=== PATIENT | female | born 1960 | race Caucasian/White ===

== ENCOUNTER → 2018-06-27 09:05 | Outpatient (CLI) | payer OTHER, SELFPAY | PROVIDERS: Visit Provider Nurse Practitioner | DX: N39.0 Urinary tract infection, site not specified (principal) | CPT/HCPCS: 87086 ==

== ENCOUNTER → 2018-08-16 21:23 | Outpatient (CLI) | payer OTHER, SELFPAY | PROVIDERS: Referring Provider Nurse Practitioner; Visit Provider Nurse Practitioner | DX: N30.90 Cystitis, unspecified without hematuria (principal); R35.0 Frequency of micturition | CPT/HCPCS: 87086 ==

== ENCOUNTER 2022-01-07 21:39 | Outpatient (CLI) | payer OTHER, SELFPAY | END 2022-01-07 23:59 | disposition home or self-care (01) | PROVIDERS: Visit Provider Nurse Practitioner | DX: R35.0 Frequency of micturition (principal); N30.90 Cystitis, unspecified without hematuria | CPT/HCPCS: 87086 ==

== ENCOUNTER → 2025-04-17 | Outpatient (CLI) | payer MEDICARE, SELFPAY ==
--- OUTSIDE RECORDS SUMMARY | 2025-04-18 02:43 | XMS RPT_ITS | CCD ---
Author Organization [facility] Care Team Providers Care Warehouse Distribution Specialist Name Role Phone Ericka Villela Unavailable Unavailable NURSE VISIT, IM ASSOC Unavailable Unavailabl e Katrodrigo, Bashar Unavailable Unavailable [facility], Ericka M Unavailable Unavailable Dave, Alex L Unavailable Unavailable [facility], Ericka Unavailable Unavailable Katrodrigo, Bashar Unavailable Unavailable Gomez, Ugo Unavailable Unavailable Malcolm Vargas Unavailable Unavailable Clemente, Charline Unavailable Unavailable Gomez, Ugo J Unavailable Unavailable Katirroxy, Bashar Unavailable Unavailable NURSE VISIT, IM ASSOC Unavailable Unavailabl e Clemente, Charline Unavailable Unavailable Timi FREEMAN, Rodríguez Madden Unavailable [phone] Ericka Villela MD Unavailable Unavailable Jovon Mckeon MD Unavailable Unavailable Clemente DO, Charline Unavailable Unavailable [facility], Ericka M Unavailable Unavailable Gomez, Ugo J Unavailable Unavailable Katirji, Bashar Unavailable Unavailable Dave, Alex L Unavailable Unavailable NURSE VISIT, IM ASSOC Unavailable Unavailabl e [facility], Ericka M Unavailable Unavailable Dave Alex L Unavailable Unavailable [facility], Ericka M Unavailable Unavailable Unavailable Ericka Villela MD Primary Care Provider [phone] Unavailable Unavailable Ericka Villela MD Primary Care Provider [phone] Ericka Villela MD Unavailable MD ERICKA VILLELA Primary Care Unavailable Angie MCKEON Attending Unavailable Dr. Luís Dixon Attending Unavailable MD ERICKA VILLELA Primary Care Unavailable DO LAYA NICHOLS Attending MD ERICKA Lazo Primary Care Unavailable DO LAYA NICHOLS Attending DO LAYA Sung Referring MD ERICKA Lazo Primary Care Unavailable MD ERICKA VILLELA Primary Care Unavailable MANOHAR, MD ERICKA Lamb Attending Unavailable MANOHAR, MD ERICKA Lamb Referring Unavailable MANOHAR, MD ERICKA Lamb Referring Unavailable MD ERICKA VILLELA Primary Care Unavailable MD ERICKA VILLELA Attending Unavailable MD ERICKA VILLELA Referring Unavailable MD ERICKA VILLELA Primary Care Unavailable MANOHAR, MD ERICKA Lamb Attending Unavailable MD ERICKA VILLELA Primary Care Unavailable MD ERICKA VILLELA Attending Unavailable MD ERICKA VILLELA Referring Unavailable MD ERICKA VILLELA Primary Care Unavailable MANOHAR, MD ERICKA Lamb Attending Unavailable MD ERICKA VILLELA Referring Unavailable Chanelle Estrada Attending Unavailable MANOHAR, MD ERICKA Lamb Primary Care Unavailable MANOHAR, MD ERICKA Lamb Referring Unavailable MANOHARERICKA Referring Unavailable MANOHARERICKA Primary Care Unavailable Ericka Villela MD Primary Care Provider Ericka Villela MD Primary Care Provider Ericka Villela MD Unavailable Kwaku Hendricks MD, Sy Lilly Unavailable Marilee Wiseman MD Unavailable Meka LORA, Jovon Unavailable Bushra Li OD Unavailable Ginger Corona MD Unavailable Hannah Elizabeth MD Unavailable Ericka Villela MD Unavailable MANOHAR, ERICKA M Primary Care Unavailable SAIMA SEO Attending Unavailable MANOHAR, ERICKA M Primary Care Unavailable CLAUDE THOMPSNO Attending Unavailable MANOHAR, ERICKA M Primary Care Unavailable CLAUDE THOMPSON Attending Unavailable TOMAS GRAMAJO Admitting Unavailabl e TOMAS GRAMAJO Attending Unavailabl e MANOHAR, ERICKA M Primary Care Unavailable TOMAS GRAMAJO Attending Unavailabl e MANOHAR, ERICKA M Primary Care Unavailable TOMAS GRAMAJO Referring Unavailabl e MANOHAR, ERICKA M Primary Care Unavailable YEHUDA KIRK Referring Unavailable MANOHAR, ERICKA M Primary Care Unavailable MANOHAR, ERICKA M Primary Care Unavailable MANOHAR, ERICKA M Attending Unavailable MANOHAR, ERICKA M Primary Care Unavailable MANOHAR, ERICKA M Primary Care Unavailable MANOHAR, ERICKA M Referring Unavailable MANOHAR, ERICKA M Primary Care Unavailable LAURI SAHU Attending Unavailable MANOHAR, ERICKA M Primary Care Unavailable MANOHAR, ERICKA M Attending Unavailable MANOHAR, ERICKA M Primary Care Unavailable MANOHAR, ERICKA M Referring Unavailable MANOHAR, ERICKA M Primary Care Unavailable MANOHAR, ERICKA M Referring Unavailable MANOHAR, ERICKA M Primary Care Unavailable MANOHAR, ERICKA M Referring Unavailable MANOHAR, ERICKA M Attending Unavailable MANOHAR, ERICKA M Primary Care Unavailable MARILEE WISEMAN Attending Unavailable MANOHAR, ERICKA M Primary Care Unavailable MANOHAR, ERICKA M Primary Care Unavailable MARILEE WISEMAN Attending Unavailable MANOHAR, ERICKA M Primary Care Unavailable MANOHAR, ERICKA M Attending Unavailable MANOHAR, ERICKA M Primary Care Unavailable MANOHAR, ERICKA M Primary Care Unavailable MARILEE WISEMAN Attending Unavailable MANOHAR, ERICKA M Primary Care Unavailable MANOHAR, ERICKA M Primary Care Unavailable GUILLAUME MERRILL Attending Unavailable LESLYE LEMUS Referring Unavailable MANOHAR, ERICKA M Primary Care Unavailable GUILLAUME MERRILL Attending Unavailable SELF Referring Unavailable MANOHAR, ERICKA M Primary Care Unavailable GUILLAUME MERRILL Attending Unavailable MANOHAR, ERICKA M Primary Care Unavailable YEHUDA KIRK Attending Unavailable SELF Referring Unavailable MANOHAR, ERICKA M Primary Care Unavailable GUILLAUME MERRILL Attending Unavailable MANOHAR, ERICKA M Primary Care Unavailable LESLYE LEMUS Referring Unavailable MANOHAR, ERICKA M Primary Care Unavailable PROVIDER, UNKNOWN Referring Unavailable MANOHAR, ERICKA M Primary Care Unavailable MANOHAR, ERICKA M Primary Care Unavailable PROVIDER, UNKNOWN Referring Unavailable MANOHAR, ERICKA M Primary Care Unavailable MANOHAR, ERICKA M Primary Care Unavailable JOVON MCKEON Attending Unavailable MANOHAR, ERICKA M Primary Care Unavailable MANOHAR, ERICKA M Primary Care Unavailable MANOHAR, ERICKA M Primary Care Unavailable LAURI SAHU Referring Unavailable MANOHAR, ERICKA M Primary Care Unavailable MANOHAR, ERICKA M Primary Care Unavailable MANOHAR, ERICKA M Primary Care Unavailable JOVON MCKEON Attending Unavailable MANOHAR, ERICKA M Primary Care Unavailable MANOHAR, ERICKA M Primary Care Unavailable MANOHAR, ERICKA M Referring Unavailable MANOHAR, ERICKA M Primary Care Unavailable MARILEE WISEMAN Referring Unavailable MANOHAR, ERICKA M Primary Care Unavailable MANOHAR, ERICKA M Referring Unavailable MANOHAR, ERICKA M Primary Care Unavailable JOVON MCKEON Attending Unavailable MANOHAR, ERICKA M Primary Care Unavailable Allergies Allergy Classification Reported Allergen(s) Allergy Type Date of Onset Reaction(s) Facility Macrolides (antibiotic) (15 sources) Azithromycin; Translations: [Zithromax CAPS] Drug Allergy Other [facility] Work Phone: NSAIDs (20 sources) Ibuprofen; Translations: [Naprelan TB24] Drug Allergy Swelling, Hives, Angioedema [facility] Work Phone: (20 sources) Azithromycin; Translations: [Zithromax CAPS] Drug Allergy 03-09-20 13 Other, Other: See Comments [facility] (20 sources) Ibuprofen; Translations: [Ibuprofen TABS] Drug Allergy 03-09-20 13 Swelling, Anaphylaxis, Rash, Shortness of breath [facility] Work Phone: (20 sources) Naproxen; Translations: [Naprelan TB24] Drug Allergy Hives, Angioedema [facility] Work Phone: (1 source) Azithromycin Drug Allergy 07-26-20 13 tongue swelling [facility] Work Phone: (1 source) Ibuprofen Drug Allergy 07-26-20 13 skin rash and difficulty breathing [facility] Work Phone: (2 sources) Adhesive Tape Propensity to adverse reactions to drug 05-11-20 13 Other (See Comments) [facility] Work Phone: (20 sources) Naproxen; Translations: [NAPROXEN SODIUM] Drug Allergy 03-09-20 13 Anaphylaxis, Rash [facility] Work Phone: (2 sources) NSAIDs Propensity to adverse reactions to drug 02-10-20 17 [facility] (20 sources) Naproxen; Translations: [NAPRELAN] Drug Allergy 11-11-19 23 Hives, Angioedema [facility] Work Phone: (20 sources) Non-steroidal anti-inflammator y agent; Translations: [NSAIDS (NON-STEROIDAL ANTI-INFLAMMATOR Y DRUG)] Drug Intolerance 02-10-20 17 Rash [facility] Work Phone: (20 sources) Other; Translations: [OTHER] Propensity to adverse reactions 05-11-20 13 Unknown [facility] Work Phone: (7 sources) Azithromycin; Translations: [AZITHROMYCIN] Drug Allergy 03-09-20 13 [facility] (7 sources) Ibuprofen; Translations: [IBUPROFEN] Drug Allergy 03-09-20 13 [facility] (18 sources) Adhesive Tape; Translations: [ADHESIVE TAPE (ROSINS)] Propensity to adverse reactions to substance 05-11-20 Other: See Comments [facility] Medications Current Medications Medication Drug Class(es) Dates Sig (Normalized) Sig (Original) acetaminophen 325 mg / oxyCODONE hydrochloride 5 mg oral tablet (4 sources) Opioid Agonist Start: 01-12-2014 take 1 tablet by mouth every four hours as needed oxyCODONE-acetam inophen 5-325 mg tablet Take 1 tablet by mouth every 4 hours as needed for Pain. 40 tablet 0 01/12/2014 Active amoxicillin 875 mg / clavulanate 125 mg oral tablet (4 sources) Penicillin-class Antibacterial Start: 02-17-2025 End: 02-27-2025 take 1 tablet by mouth twice daily amoxicillin-clav ulanate (Augmentin) 875-125 mg tablet Indications: Cellulitis of left thumb Take 1 tablet (875 mg) by mouth 2 times a day for 10 days. 20 tablet 02/17/2025 02/27/2025 Active Start: 08-12-2020 take 1 tablet by víctor th every twelve hours Amoxicillin-Pot Clavulanate 875-125 MG Oral Tablet TAKE 1 TABLET EVERY 12 HOURS UNTIL GONE. Quantity: 14 Refills: 0 Ericka Villela MD Start : 12-Aug-2020 Active atorvastatin 10 mg oral tablet (20 sources) HMG-CoA Reductase Inhibitor Start: 09-19-2024 take 1 tablet by mouth once daily atorvastatin (Lipitor) 10 mg tablet Indications: Vitamin B12 deficiency anemia, unspecified TAKE 1 TABLET BY MOUTH ONCE DAILY 90 tablet 3 09/19/2024 Active Start: 06-12-2024 take 1 tablet by víctor th once daily atorvastatin (Lipitor) 10 mg tablet Indications: Vitamin B12 deficiency anemia, unspecified TAKE 1 TABLET BY MOUTH ONCE DAILY 90 tablet 06/12/2024 Active Start: 04-02-2024 take 1 tablet by víctor th once daily atorvastatin (Lipitor) 10 mg tablet Indications: Vitamin B12 deficiency anemia, unspecified Take 1 tablet (10 mg) by mouth once daily. 90 tablet 04/02/2024 Active Start: 11-11-2023 take 1 tablet by víctor th once daily atorvastatin (Lipitor) 10 mg tablet Indications: Vitamin B12 deficiency anemia, unspecified Take 1 tablet (10 mg) by mouth once daily. 30 tablet 0 01/12/2024 Active Start: 10-12-2023 take 1 tablet by víctor th once daily atorvastatin (Lipitor) 10 mg tablet Indications: Vitamin B12 deficiency anemia, unspecified Take 1 tablet (10 mg) by mouth once daily. 30 tablet 0 10/12/2023 Active Start: 05-25-2013 End: 09-13-2023 take 1 tablet by mouth once daily atorvastatin (Lipitor) 10 mg tablet Indications: Vitamin B12 deficiency anemia, unspecified Take 1 tablet (10 mg) by mouth once daily. 30 tablet 0 09/13/2023 Active benzonatate 200 mg oral capsule (7 sources) Non-narcotic Antitussive Start: 09-15-2024 take 1 capsule by mouth three times daily as needed for cough benzonatate (Tessalon) 200 mg capsule Indications: COVID-19 Take 1 capsule (200 mg) by mouth 3 times a day as needed for cough for up to 30 doses. Do not crush or chew. 30 capsule 09/15/2024 Active calcium carbonate 1500 mg oral tablet (20 sources) calcium carbonat e 600 mg calcium (1,500 mg) tablet Take by mouth. Active Calcium 600 MG T ABS Quantity: 0 Refills: 0 Ordered: 25-Mar-2015 DO Active Calcium 600 MG O ral Tablet Refills: 0 Active cholecalciferol, vitamin D3, (VITAMIN D3 ORAL) (14 sources) cholecalciferol, vitamin D3, (VITAMIN D3 ORAL) Take by mouth. Active cholecalciferol, vitamin D3, (VITAMIN D3 ORAL) Take by mouth. 0 Active cyanocobalamin, vitamin B-12 , (B-12 COMPLIANCE INJ) (20 sources) cyanocobalamin, vitamin B-12, (B-12 COMPLIANCE INJ) B12 INJECTIONS Active cyanocobalamin, vitamin B-12, (B-12 COMPLIANCE INJ) B12 INJECTIONS 0 Active 1 ml denosumab 60 mg/ml prefilled syringe (20 sources) RANK Ligand Inhibitor Start: 01-09-2024 End: 01-12-2024 inject 1 mL by subcutaneous injection once denosumab (Prolia) 60 mg/mL syringe Indications: Osteoporosis, unspecified osteoporosis type, unspecified pathological fracture presence Inject 1 mL (60 mg total) under the skin 1 time for 1 dose. To be administered in office 1 mL 01/09/2024 Active Start: 01-09-2024 denosumab (PRO CORINE) 60 mg/mL as directed Subcutaneous 01/09/2024 Active Start: 06-14-2019 End: 01-07-2024 denosumab (Prolia) 60 mg/mL syringe Inject 1 mL (60 mg) under the skin every 6 months. To be administered in office 0 06/14/2019 01/07/2024 Discontinued (Reorder) Start: 06-14-2019 inject 60 mg by subc utaneous injection once Prolia 60 MG/ML Subcutaneous Solution Prefilled Syringe INJECT 60 MG Subcutaneous Quantity: 1 Refills: 0 Ordered: 14-Jun-2019 Ericka Villela MD Start : 14-Jun-2019 Active Pt to bring med to Dr Gilles acosta office for adminiastration. Please review proper storage and transportion of this medication with the pt. Start: 05-29-2016 Prolia 60 MG/M L Subcutaneous Solution INJECT 60 UNIT Subcutaneous Quantity: 0 Refills: 0 Ordered: 29-May-2016 Ericka Villela MD Start : 29-May-2016 Complete 12 hr dextromethorphan hydrobromide 30 mg / guaiFENesin 600 mg extended release oral tablet (16 sources) Uncompetitive Z-fbujhh-D-aspartate Receptor Antagonist, Sigma-1 Agonist End: 08-24-2024 take 1 tablet by mouth every twelve hours dextromethorphan-guaifenesin (Mucinex DM) 30-600 mg 12 hr tablet Take 1 tablet by mouth every 12 hours. Do not crush, chew, or split. 08/24/2024 Discontinued (Med List Cleanup) doxycycline hyclate 100 mg oral capsule (2 sources) Tetracycline-class Drug Start: 02-17-2025 End: 02-27-2025 doxycycline (Vibramycin) 100 mg capsule Indications: Cellulitis of left thumb Take 1 capsule (100 mg) by mouth 2 times a day for 10 days. Take with at least 8 ounces (large glass) of water, do not lie down for 30 minutes after 20 capsule 02/17/2025 02/27/2025 Active Start: 06-02-2023 End: 06-09-2023 doxycycline (Vibramycin) 100 mg capsule Indications: Subacute sinusitis, unspecified location , Laryngitis Take 1 capsule (100 mg) by mouth 2 times a day for 7 days. Take with at least 8 ounces (large glass) of water, do not lie down for 30 minutes after 14 capsule 0 06/02/2023 06/09/2023 Active gabapentin 100 mg oral capsule (3 sources) Anti-epileptic Agent take 1 capsule by mouth three times daily gabapentin (Neurontin) 100 mg capsule Take 100 mg by mouth 3 times a day. Unsure of exact dose Active lisinopril 10 mg oral tablet (20 sources) Angiotensin Converting Enzyme Inhibitor Start: 09-19-20 take 1 tablet by mouth once daily lisinopril 10 mg tablet Indications: Primary hypertension TAKE 1 TABLET BY MOUTH ONCE DAILY USE DIRECTED 90 tablet 3 09/19/2024 Active Start: 06-12-2024 take 1 tablet by víctor th once daily lisinopril 10 mg tablet Indications: Primary hypertension Take 1 tablet (10 mg) by mouth once daily. Use as directed 90 tablet 06/12/2024 Active Start: 01-28-2024 take 1 tablet by víctor th once daily lisinopril 10 mg tablet Indications: Primary hypertension Take 1 tablet (10 mg) by mouth once daily. Use as directed 90 tablet 01/28/2024 Active Start: 11-11-2023 take 1 tablet by víctor th once daily lisinopril 10 mg tablet Indications: Primary hypertension Take 1 tablet (10 mg) by mouth once daily. Use as directed 30 tablet 0 01/12/2024 Active Start: 10-12-2023 take 1 tablet by víctor th once daily lisinopril 10 mg tablet Indications: Primary hypertension Take 1 tablet (10 mg) by mouth once daily. Use as directed 30 tablet 0 10/12/2023 Active Start: 05-29-2016 End: 09-13-2023 take 1 tablet by mouth once daily lisinopril 10 mg tablet Indications: Primary hypertension Take 1 tablet (10 mg) by mouth once daily. Use as directed 30 tablet 0 09/13/2023 Active End: 07-24-2021 LISINOPRIL PO Take by mouth 0 07/24/2021 Discontinued (LIST CLEANUP) nystatin 100 unt/mg topical powder (20 sources) Polyene Antifungal Start: 01-13-2023 End: 12-30-2023 nystatin (Mycostatin) 100,000 unit/gram powder Indications: Tinea corporis Apply topically 2 times a day. Apply sparingly to affected area(s) 30 g 11 12/30/2023 Active Start: 04-07-2019 Nystatin 86537 0 UNIT/GM External Powder APPLY SPARINGLY TO AFFECTED AREA(S) TWICE DAILY Quantity: 1 Refills: 3 Ordered: 29-Apr-2022 Ericka Villela MD Start : 07-Apr-2019 Active Start: 04-07-2019 nystatin (Myco statin) 100,000 unit/gram powder Apply topically in the morning and at bedtime. Apply sparingly to affected area(s) 0 04/07/2019 Active Start: 04-07-2019 Nystatin 00193 0 UNIT/GM External Powder APPLY SPARINGLY TO AFFECTED AREA(S) TWICE DAILY Quantity: 1 Refills: 3 Ericka Villela MD Start : 07-Apr-2019 Active 60 GM Bottle pantoprazole 40 mg delayed release oral tablet (20 sources) Proton Pump Inhibitor Start: 01-16-2025 take 1 tablet by mouth once daily before mealtime pantoprazole (ProtoNix) 40 mg EC tablet Indications: Gastroesophageal reflux disease without esophagitis Take 1 tablet (40 mg) by mouth once daily in the morning. Take before meals. 30 tablet 3 01/16/2025 Active Start: 09-19-2024 take 1 tablet by víctor th once daily before mealtime pantoprazole (ProtoNix) 40 mg EC tablet Indications: Gastroesophageal reflux disease without esophagitis Take 1 tablet (40 mg) by mouth once daily in the morning. Take before meals. 30 tablet 3 09/19/2024 Active Start: 09-01-2024 take 1 tablet by víctor th once daily before mealtime pantoprazole (ProtoNix) 40 mg EC tablet Indications: Gastroesophageal reflux disease without esophagitis Take 1 tablet (40 mg) by mouth once daily in the morning. Take before meals. 30 tablet 09/01/2024 Active Start: 05-09-2024 take 1 tablet by víctor th once daily before mealtime pantoprazole (ProtoNix) 40 mg EC tablet Indications: Gastroesophageal reflux disease without esophagitis TAKE 1 TABLET BY MOUTH ONCE DAILY IN THE MORNING. take before meals 90 tablet 05/09/2024 Active Start: 01-28-2024 take 1 tablet by víctor th once daily before mealtime pantoprazole (ProtoNix) 40 mg EC tablet Indications: Gastroesophageal reflux disease without esophagitis Take 1 tablet (40 mg) by mouth once daily in the morning. Take before meals. 90 tablet 01/28/2024 Active Start: 11-11-2023 take 1 tablet by víctor th once daily before mealtime pantoprazole (ProtoNix) 40 mg EC tablet Indications: Gastroesophageal reflux disease without esophagitis Take 1 tablet (40 mg) by mouth once daily in the morning. Take before meals. 90 tablet 0 11/11/2023 Active Start: 10-12-2023 take 1 tablet by víctor th once daily before mealtime pantoprazole (ProtoNix) 40 mg EC tablet Indications: Gastroesophageal reflux disease without esophagitis Take 1 tablet (40 mg) by mouth once daily in the morning. Take before meals. 30 tablet 0 10/12/2023 Active Start: 08-30-2023 take 1 tablet by víctor th once daily before mealtime pantoprazole (ProtoNix) 40 mg EC tablet Indications: Gastroesophageal reflux disease without esophagitis Take 1 tablet (40 mg) by mouth once daily in the morning. Take before meals. 30 tablet 0 08/30/2023 Active Start: 04-02-2017 End: 07-29-2023 take 1 tablet by mouth once daily before mealtime pantoprazole (ProtoNix) 40 mg EC tablet Indications: Gastroesophageal reflux disease without esophagitis Take 1 tablet (40 mg) by mouth once daily in the morning. Take before meals. 30 tablet 0 07/30/2023 Active PNV no.95/ferrous fum/folic ac ( ORAL) (2 sources) take 1 tablet by víctor th once daily before mealtime PNV no.95/ferrous fum/folic ac ( ORAL) Take 1 tablet by mouth 1 (one) time each day. 0 Active Potassium (14 sources) POTASSIUM ORAL T lidia by mouth. Active POTASSIUM ORAL T lidia by mouth. 0 Active potassium chloride 10 meq extended release oral tablet (20 sources) Start: 04-02-2022 take 1 tablet by mouth once daily potassium chloride CR 10 mEq ER tablet Take 1 tablet (10 mEq) by mouth once daily. 04/02/2022 Active predniSONE 20 mg oral tablet (2 sources) Start: 09-15-2024 End: 09-23-2024 take 3 tablets by mouth once daily, then take 2 tablets by mouth once daily, then take 1 tablet by mouth once daily predniSONE (Deltasone) 20 mg tablet Indications: COVID-19 Take 3 tablets (60 mg) by mouth once daily for 3 days, THEN 2 tablets (40 mg) once daily for 3 days, THEN 1 tablet (20 mg) once daily for 3 days. 20 tablet 09/15/2024 09/23/2024 Active 28 mg iron- 800 mcg tablet (7 sources) Start: 07-01-2023 take 1 tablet by mouth once daily 28 mg iron- 800 mcg tablet Indications: Other specified postprocedural states TAKE 1 TABLET BY MOUTH ONCE DAILY 90 tablet 0 07/01/2023 Active Vit 22-Lozs-HR-DSS ( AD) 90-1-50 mg Tab (15 sources) Vit 86-Ycri-QM-DSS ( AD) 90-1-50 mg Tab Take by mouth. Active Vit 15- Iron-FA-DSS ( AD) 90-1-50 mg Tab Take by mouth. 0 Active vitamin, iron-folic, () 27 mg iron-800 mcg folic acid tablet (20 sources) Start: 12-30-2023 take 1 tablet by mouth once daily vitamin, iron-folic, () 27 mg iron-800 mcg folic acid tablet Indications: Other specified postprocedural states Take 1 tablet by mouth once daily. 90 tablet 11 12/30/2023 Active Start: 10-12-2023 End: 12-30-2023 take 1 tablet by mouth once daily vitamin, iron-folic, () 27 mg iron-800 mcg folic acid tablet Indications: Other specified postprocedural states Take 1 tablet by mouth once daily. 90 tablet 0 10/12/2023 12/30/2023 Discontinued (Reorder) Start: 10-12-2023 take 1 tablet by víctor th once daily vitamin, iron-folic, () 27 mg iron-800 mcg folic acid tablet Indications: Other specified postprocedural states Take 1 tablet by mouth once daily. 90 tablet 0 10/12/2023 Active sertraline 50 mg oral tablet (20 sources) Serotonin Reuptake Inhibitor Start: 03-15-2025 take 1 tablet by mouth once daily sertraline (Zoloft) 50 mg tablet Indications: Depression, major, single episode, severe (Multi) TAKE 1 TABLET BY MOUTH ONCE DAILY DIRECTED 90 tablet 03/15/2025 Active Start: 09-19-2024 End: 02-09-2025 take 1 tablet by mouth once daily sertraline (Zoloft) 50 mg tablet Indications: Depression, major, single episode, severe (Multi) TAKE 1 TABLET BY MOUTH ONCE DAILY DIRECTED 30 tablet 02/09/2025 Active Start: 09-01-2024 take 1 tablet by víctor th once daily sertraline (Zoloft) 50 mg tablet Indications: Depression, major, single episode, severe (Multi) Take 1 tablet (50 mg) by mouth once daily. as directed 30 tablet 09/01/2024 Active Start: 05-09-2024 take 1 tablet by víctor th once daily sertraline (Zoloft) 50 mg tablet Indications: Depression, major, single episode, severe (Multi) TAKE 1 TABLET BY MOUTH ONCE DAILY DIRECTED 90 tablet 05/09/2024 Active Start: 01-28-2024 take 1 tablet by víctor th once daily sertraline (Zoloft) 50 mg tablet Indications: Depression, major, single episode, severe (Multi) Take 1 tablet (50 mg) by mouth once daily. Use as directed 90 tablet 01/28/2024 Active Start: 11-11-2023 take 1 tablet by víctor th once daily sertraline (Zoloft) 50 mg tablet Indications: Depression, major, single episode, severe (CMS/HCC) Take 1 tablet (50 mg) by mouth once daily. Use as directed 90 tablet 0 11/11/2023 Active Start: 10-12-2023 take 1 tablet by víctor th once daily sertraline (Zoloft) 50 mg tablet Indications: Depression, major, single episode, severe (CMS/HCC) Take 1 tablet (50 mg) by mouth once daily. Use as directed 30 tablet 0 10/12/2023 Active Start: 07-28-2021 End: 09-13-2023 take 1 tablet by mouth once daily sertraline (Zoloft) 50 mg tablet Indications: Depression, major, single episode, severe (CMS/HCC) Take 1 tablet (50 mg) by mouth once daily. Use as directed 30 tablet 0 09/13/2023 Active Start: 07-28-2021 take 0.5 tablet by m outh every week, then take 1 tablet by mouth once daily Sertraline HCl - 50 MG Oral Tablet 1/2 pill for the first week and then 1 pill daily Quantity: 30 Refills: 1 Ordered: 28-Jul-2021 Ericka Villela MD Start : 28-Jul-2021 Active sulfamethoxazole 800 mg / trimethoprim 160 mg oral tablet (1 source) Dihydrofolate Reductase Inhibitor Antibacterial, Sulfonamide Antimicrobial Start: 03-07-2025 End: 03-14-2025 take 1 tablet by mouth twice daily sulfamethoxazole-trimethoprim (Bactrim DS) 800-160 mg tablet Indications: Urinary tract infection without hematuria, site unspecified Take 1 tablet by mouth 2 times a day for 7 days. 14 tablet 03/07/2025 03/14/2025 Active tiZANidine 4 mg oral tablet (20 sources) Central alpha-2 Adrenergic Agonist Start: 03-13-2025 End: 05-12-2025 take 1 tablet by mouth every eight hours for pain tiZANidine (Zanaflex) 4 mg tablet Indications: Neck pain Take 1 tablet (4 mg) by mouth every 8 hours if needed for muscle spasms (Neck pain). 90 tablet 1 03/13/2025 05/12/2025 Active Start: 11-07-2024 End: 01-06-2025 take 1 tablet by mouth every eight hours for pain tiZANidine (Zanaflex) 4 mg tablet Indications: Neck pain Take 1 tablet (4 mg) by mouth every 8 hours if needed for muscle spasms (Neck pain). 90 tablet 1 11/07/2024 Active Start: 10-25-2024 End: 11-07-2024 take 1 tablet by mouth every six hours for muscle spasms tiZANidine (Zanaflex) 2 mg tablet Indications: Neck muscle spasm Take 1 tablet (2 mg) by mouth every 6 hours if needed for muscle spasms for up to 10 days. 30 tablet 10/25/2024 11/07/2024 Discontinued (Therapy completed) Start: 08-15-2019 take 1 tablet by víctor th at bedtime tiZANidine HCl - 4 MG Oral Capsule one tablet at bedtime for muscle relaxant Quantity: 30 Refills: 0 Ericka Villela MD Start : 15-Aug-2019 Active Completed/Discontinued Medications Medication Drug Class(es) Dates Sig (Normalized) Sig (Original) acetaminophen 300 mg / codeine phosphate 30 mg oral tablet (5 sources) Opioid Agonist Start: 08-01-2020 take 1 tablet by mouth three times daily as needed for pain Acetaminophen-Code ine #3 300-30 MG Oral Tablet TAKE 1 TABLET 3 TIMES DAILY NEEDED FOR PAIN. Quantity: 12 Refills: 0 Ericka Villela MD Start : 01-Aug-2020 Active acetaminophen 325 mg / HYDROcodone bitartrate 5 mg oral tablet (1 source) Opioid Agonist Start: 02-03-2025 End: 02-06-2025 take 1 tablet by mouth every eight hours as needed for pain HYDROcodone-acetam inophen (NORCO) 5-325 mg per tablet Indications: Distal radius fracture, right Take 1 tablet by mouth every 8 hours as needed for pain for up to 3 days. 9 tablet 02/03/2025 02/06/2025 ascorbic acid 120 mg / beta carotene 2700 unt / calcium carbonate 200 mg / cholecalciferol 400 unt / cupric oxide 2 mg / docusate sodium 50 mg / folic acid 1 mg / iron carbonyl 90 mg / magnesium oxide 30 mg / niacinamide 20 mg / pyridoxine hydrochloride 20 mg / riboflavin 3.4 mg / thiamine mononitrate 3 mg / tocopherol acetate 30 unt / vitamin b12 0.012 mg / zinc oxide 25 mg oral tablet (7 sources) Vitamin B12, Vitamin D, Vitamin C Start: 11-26-2011 Mynatal Advance TABS TAKE 1 TABLET DAILY DIRECTED. Quantity: 90 Refills: 3 Ericka Villela MD Start : 26-Nov-2011 Active atropine sulfate 0.025 mg / diphenoxylate hydrochloride 2.5 mg oral tablet (1 source) Anticholinergic, Cholinergic Muscarinic Antagonist, Antidiarrheal Start: 07-24-2021 End: 07-24-2021 diphenoxylate-atro pine (LOMOTIL) 2.5-0.025 MG per tablet 1 tablet betamethasone 3 mg/ml / betamethasone acetate 3 mg/ml injectable suspension (2 sources) Corticosteroid Start: 01-31-2025 End: 01-31-2025 betamethasone acetate-betamethas one sodium phosphate 12 mg injection (CELESTONE) Start: 01-31-2025 End: 01-31-2025 12 mg, Injection - FOR ORTHO USE ONLY, ONCE, 1 dose, Starting on Wed01/31/25 at 1003, Until Wed01/31/25 at 1003 calcium chloride 0.0014 meq/ ml / potassium chloride 0.004 meq/ml / sodium chloride 0.103 meq/ml / sodium lactate 0.028 meq/ml injectable solution (2 sources) Start: 12-20-2023 End: 12-20-2023 lactated Ringer's infusion Start: 07-24-2021 End: 07-24-2021 lactated ringers bolus calcium citrate 950 mg oral tablet (1 source) Start: 12-11-2019 CALCITRATE 950 MG TABS takes one tablet twice daily (3,000mg) CALCIUM CITRATE [id number] Rodríguez Capellan PA-C celecoxib 200 mg oral capsule (20 sources) Nonsteroidal Anti-inflammatory Drug Start: 05-09-2018 End: 08-24-2024 take 1 capsule by mouth once daily Celecoxib 200 MG Oral Capsule TAKE 1 CAPSULE Daily Quantity: 30 Refills: 3 Ordered: 30-Apr-2021 Ericka Villela MD Start : 09-May-2018 Active cholecalciferol 1000 unt oral tablet (20 sources) Vitamin D Start: 12-11-2019 VITAMIN D3 25 MCG (1000 UT) TABS takes one tablet once daily CHOLECALCIFEROL [id number] Rodríguez Capellan PA-C Start: 07-06-2017 take 1 capsule by mo [facility] once daily Vitamin D 2000 UNIT Oral Capsule TAKE 1 CAPSULE Daily Quantity: 30 Refills: 11 Ericka Villela MD Start : 06-Jul-2017 Active take 1 tablet by víctor th once daily cholecalciferol (Vitamin D3) 5,000 Units tablet Take 1 tablet (125 mcg) by mouth once daily. Active Vitamin D CAPS T LIDIA 1 CAPSULE Daily take a total of 5,000 iu a day Refills: 0 DO Active Vitamin D CAPS T LIDIA 1 CAPSULE Daily take a total of 5,000 iu a day Refills: 0 Active ciprofloxacin 500 mg oral tablet (11 sources) Quinolone Antimicrobial Start: 05-21-2023 End: 07-22-2023 take 1 tablet by mouth twice daily ciprofloxacin (Cipro) 500 mg tablet Take 1 tablet (500 mg) by mouth 2 times a day. 0 05/21/2023 07/22/2023 Discontinued (Therapy completed) Start: 07-28-2021 take 1 tablet by víctor th twice daily Ciprofloxacin HCl - 500 MG Oral Tablet TAKE 1 TABLET TWICE DAILY. Quantity: 14 Refills: 0 Ordered: 28-Jul-2021 Ericka Villela MD Start : 28-Jul-2021 Active Start: 07-28-2021 take 1 tablet by víctor th once daily Ciprofloxacin HCl - 750 MG Oral Tablet TAKE 1 TABLET EVERY 12 HOURS DAILY. Quantity: 20 Refills: 0 Ordered: 26-Aug-2021 Ericka Villela MD Start : 28-Jul-2021 Active cycloSPORINE (Restasis) 0.05 % ophthalmic emulsion (5 sources) Start: 03-14-2023 End: 08-31-2023 take 1 drop(s) into the eye(s) every twelve hours cycloSPORINE (Restasis) 0.05 % ophthalmic emulsion INSTILL 1 DROP IN BOTH EYES EVERY 12 HOURS 0 03/14/2023 08/31/2023 Discontinued (Therapy completed) Start: 03-14-2023 take 1 drop(s) into the eye(s) every twelve hours cycloSPORINE (Restasis) 0.05 % ophthalmic emulsion INSTILL 1 DROP IN BOTH EYES EVERY 12 HOURS 0 03/14/2023 Active dicyclomine hydrochloride 10 mg oral capsule (19 sources) Anticholinergic Start: 07-24-2021 End: 02-18-2022 take 1 capsule by mouth three times daily as needed Dicyclomine HCl - 10 MG Oral Capsule TAKE 1 CAPSULE 3 times daily PRN Quantity: 30 Refills: 0 Ordered: 28-Jul-2021 Ericka Villela MD Start : 24-Jul-2021 End : 18-Feb-2022 Complete Start: 07-24-2021 take 1 capsule by mo ut four times daily as needed for diarrhea dicyclomine (BENTYL) 10 MG capsule Take 1 capsule by mouth 4 times daily as needed (cramping diarrhea) 10 capsule 0 07/24/2021 Active Disability Placard (20 sources) Start: 06-19-2020 Disability [place] card Duration 5 years Quantity: 1 Refills: 0 Ordered: 19-Jun-2020 Ericka Villela MD Start : 19-Jun-2020 Active Start: 06-19-2020 Disability [place] card Duration 5 years Quantity: 1 Refills: 0 Ericka Villela MD Start : 19-Jun-2020 Active Start: 07-29-2015 Disability [place] card Duration 5 years Quantity: 1 Refills: 0 Ericka Villela MD Start : 29-Jul-2015 Active HIGH BLOOD PRESSURE ORAL 10MG TABLET (1 source) Start: 12-11-2019 take 1 tablet by mouth once daily HIGH BLOOD PRESSURE ORAL 10MG TABLET takes one tablet once daily HIGH BLOOD PRESSURE ORAL 10MG TABLET Rodríguez Capellan PA-C hydroxocobalamin 1 mg/ml injectable solution (4 sources) Antidote Start: 06-03-2021 Hydroxocobalam in Acetate 1000 MCG/ML Intramuscular Solution INJECT 1 ML Intradermal Quantity: 0 Refills: 0 Ordered: 03-Jun-2021 Ericka Villela MD Start : 03-Jun-2021 Complete Hydroxocobalamin 1000 MCG/ML SOLN INJECT 1000 MCG Intramuscular Refills: 0 Active 10 ml lidocaine hydrochloride 10 mg/ml injection (20 sources) Antiarrhythmic, Amide Local Anesthetic Start: 01-31-2025 End: 01-31-2025 lidocaine (PF) 10 mg/mL (1 %) 4 mL injection (XYLOCAINE) Start: 01-31-2025 End: 01-31-2025 4 mL, Injection - FOR ORTHO USE ONLY, ONCE, 1 dose, Starting on Wed01/31/25 at 1003, Until Wed01/31/25 at 1003 Start: 04-28-2024 End: 04-28-2024 lidocaine (PF) 10 mg/mL (1 % ) 4 mL injection (XYLOCAINE) Start: 10-20-2022 Lidocaine 5 % External Patch APPLY 1 PATCH TO THE AFFECTED AREA AND LEAVE IN PLACE FOR 12 HOURS, THEN REMOVE AND LEAVE OFF FOR 12 HOURS. Quantity: 1 Refills: 0 Ordered: 20-Oct-2022 Marin VEGA Laya Start : 20-Oct-2022 Active End: 08-31-2023 lidocaine (Lidoderm) 5 % pat ch Place on the skin. Apply 1 patch to the affected area and leave in place for 12 hours, then remove and leave off for 12 hours 0 08/31/2023 Discontinued (Therapy completed) lidocaine 25 mg/ml / prilocaine 25 mg/ml topical cream (3 sources) Antiarrhythmic, Amide Local Anesthetic Start: 11-15-2020 Lidocaine-Prilocaine 2.5-2.5 % External Cream Apply dime-sized area to affected area every 2hrs prn discomfort Quantity: 1 Refills: 0 Sidney Charline Start : 15-Nov-2020 Active 30 GM Tube loratadine 10 mg disintegrating oral tablet (20 sources) End: 11-07-2024 take 1 tablet by mouth once daily loratadine (Claritin Reditabs) 10 mg disintegrating tablet Take 1 tablet (10 mg) by mouth once daily. 11/07/2024 Discontinued (Med List Cleanup) metaxalone 400 mg oral tablet (17 sources) Start: 08-15-2019 take 1 tablet by mouth at bedtime Metaxalone 400 MG Oral Tablet TAKE 1 TABLET Bedtime Quantity: 30 Refills: 0 Ericka Villela MD Start : 15-Aug-2019 Active 1 ml methylPREDNISolone acetate 40 mg/ml injection (4 sources) Corticosteroid Start: 04-28-2024 End: 04-28-2024 methylPREDNISolone acetate 80 mg injection (DEPO-Medrol) oxyCODONE hydrochloride 5 mg oral tablet (6 sources) Opioid Agonist Start: 02-09-2025 End: 02-21-2025 take 1 tablet by mouth every six hours as needed for pain oxyCODONE IR (ROXICODONE) 5 mg immediate release tablet Indications: Closed Colles' fracture of left radius, initial encounter Take 1 tablet by mouth every 6 hours as needed for pain for up to 7 days. for pain. 20 tablet 02/14/2025 02/21/2025 PNV Tabs 29-1 29-1 MG Oral Tablet (20 sources) Start: 04-24-2020 take 1 tablet by mouth once daily PNV Tabs 29-1 29-1 MG Oral Tablet TAKE 1 TABLET DAILY. Quantity: 30 Refills: 11 Ordered: 02-Apr-2021 Ericka Villela MD Start : 24-Apr-2020 Active PNV Tabs 29-1 29-1 MG TABS (20 sources) Start: 04-24-2020 PNV Tabs 29-1 29-1 MG TABS TAKE 1 TABLET DAILY. Quantity: 30 Refills: 11 Ordered: 02-Apr-2021 Ericka Villela MD Start : 24-Apr-2020 Active polymyxin b 04195 unt/ml / trimethoprim 1 mg/ml ophthalmic solution (20 sources) Dihydrofolate Reductase Inhibitor Antibacterial, Polymyxin-class Antibacterial Start: 04-27-2022 Polymyxin B-Trimethoprim 74772-2.1 UNIT/ML-% Ophthalmic Solution INSERT 1 (ONE) DROP IN THE AFFECTED EYE(S) EVERY 4 HOURS FOR 3 DAYS WHILE AWAKE. Do not exceed 6 (SIX) doses in 24 HOURS Quantity: 10 Refills: 0 Ordered: 27-Apr-2022 DO Start : 27-Apr-2022 Active pregabalin 75 mg oral capsule (20 sources) Start: 07-26-2013 End: 04-03-2026 take 1 capsule by mouth once daily pregabalin (Lyrica) 75 mg capsule Indications: Cervical radiculopathy Take 1 capsule (75 mg) by mouth once daily. 90 capsule 1 12/21/2024 04/03/2025 Discontinued (Reorder) AD TABS (12 sources) Start: 11-26-2011 AD TABS TAKE 1 TABLET DAILY DIRECTED. Quantity: 30 Refills: 11 Ericka Villela MD Start : 26-Nov-2011 Active vit,[id number] (PNV 29-1) 29 mg iron- 1 mg tablet (4 sources) Start: 03-29-2023 End: 07-22-2023 take 1 tablet by mouth once daily vit,[id number] (PNV 29-1) 29 mg iron- 1 mg tablet Indications: S/P gastric surgery Take 1 tablet by mouth once daily. 90 tablet 0 03/29/2023 07/22/2023 Discontinued (Duplicate order) Start: 03-29-2023 take 1 tablet by víctor th once daily vit,[id number] (PNV 29-1 ) 29 mg iron- 1 mg tablet Indications: S/P gastric surgery Take 1 tablet by mouth once daily. 90 tablet 0 03/29/2023 Active Start: 04-24-2020 take 1 tablet by víctor th once daily vit,[id number] (PNV 29-1 ) 29 mg iron- 1 mg tablet Take 1 tablet by mouth 1 (one) time each day. 0 04/24/2020 Active Vitamins 28-0.8 MG Oral Tablet (10 sources) Start: 05-28-2022 take 1 tablet by mouth once daily Vitamins 28-0.8 MG Oral Tablet TAKE 1 TABLET BY MOUTH EVERY DAY Quantity: 90 Refills: 0 Ordered: 26-Aug-2022 DO Start : 28-May-2022 Active Unspecified Medication (18 sources) Start: 05-28-2022 Unspecified Me dication Dsip vit. Take one daily Quantity: 90 Refills: 3 Ordered: 28-May-2022 Ericka Villela MD Start : 28-May-2022 Active Any vit with Iron covered by her ins. is OK vitamin b12 1 mg/ml injectable solution (20 sources) Vitamin B12 Start: 08-24-2024 End: 08-24-2024 cyanocobalamin (Vitamin B-12) injection 1,000 mcg Start: 08-24-2024 End: 08-24-2024 inject 1000 ug by intramuscular injection once 1,000 mcg, intramuscular, Once, On Maria Fernanda 08/24/24 at 1145, For 1 dose Start: 12-30-2023 End: 12-30-2023 cyanocobalamin (Vitamin B-12 ) injection 1,000 mcg Start: 12-30-2023 End: 12-30-2023 cyanocobalamin (Vitamin B-12 ) injection 1,000 mcg Start: 10-28-2023 End: 10-28-2023 cyanocobalamin (Vitamin B-12 ) injection 1,000 mcg Start: 10-28-2023 End: 10-28-2023 cyanocobalamin (Vitamin B-12 ) injection 1,000 mcg Start: 08-19-2023 End: 08-19-2023 cyanocobalamin (Vitamin B-12 ) injection 1,000 mcg Start: 08-19-2023 End: 08-19-2023 cyanocobalamin (Vitamin B-12 ) injection 1,000 mcg Start: 02-24-2023 End: 02-24-2023 cyanocobalamin (Vitamin B-12 ) injection 1,000 mcg Start: 02-24-2023 End: 02-24-2023 cyanocobalamin (Vitamin B-12 ) injection 1,000 mcg Start: 10-01-2022 Cyanocobalamin 1000 MCG/ML Injection Solution INJECT 1 ML Intramuscular Quantity: 0 Refills: 0 Ordered: 01-Oct-2022 Ericka Villela MD Start : 01-Oct-2022 Complete Start: 09-03-2022 Cyanocobalamin 1000 MCG/ML Injection Solution INJECT 1 ML Intramuscular Quantity: 0 Refills: 0 Ordered: 03-Sep-2022 Ericka Villela MD Start : 03-Sep-2022 Complete Start: 07-27-2022 Cyanocobalamin 1000 MCG/ML Injection Solution INJECT 1 ML Intramuscular Quantity: 0 Refills: 0 Ordered: 27-Jul-2022 Ericka Villela MD Start : 27-Jul-2022 Complete Start: 06-29-2022 Cyanocobalamin 1000 MCG/ML Injection Solution INJECT 1 ML Intramuscular Quantity: 0 Refills: 0 Ordered: 29-Jun-2022 Ericka Villela MD Start : 29-Jun-2022 Complete Start: 05-04-2022 Cyanocobalamin 1000 MCG/ML Injection Solution inject 1ml x once today Quantity: 0 Refills: 0 Ordered: 04-May-2022 Ericka Villela MD Start : 04-May-2022 Complete Start: 02-09-2022 Cyanocobalamin 1000 MCG/ML Injection Solution inject 1ml x once today Quantity: 0 Refills: 0 Ordered: 09-Feb-2022 Ericka Villela MD Start : 09-Feb-2022 Complete Start: 01-12-2022 Cyanocobalamin 1000 MCG/ML Injection Solution inject 1ml x once today Quantity: 0 Refills: 0 Ordered: 12-Jan-2022 Ericka Villela MD Start : 12-Jan-2022 Complete Start: 11-17-2021 Cyanocobalamin 1000 MCG/ML Injection Solution Inject 1ML intramuscularly today. Quantity: 0 Refills: 0 Ordered: 09-Mar-2022 Ericka Villela MD Start : 09-Mar-2022 Complete Start: 10-20-2021 Cyanocobalamin 1000 MCG/ML Injection Solution inject 1ml x once today Quantity: 0 Refills: 0 Ordered: 20-Oct-2021 Ericka Villela MD Start : 20-Oct-2021 Complete Start: 09-22-2021 Cyanocobalamin 1000 MCG/ML Injection Solution Inject 1ML intramuscularly today. Quantity: 0 Refills: 0 Ordered: 22-Sep-2021 Ericka Villela MD Start : 22-Sep-2021 Complete Start: 07-28-2021 Cyanocobalamin 1000 MCG/ML Injection Solution Inject 1ML intramuscularly today. Quantity: 0 Refills: 0 Ordered: 28-Jul-2021 Ericka Villela MD Start : 28-Jul-2021 Complete Start: 09-11-2020 inject 1 mL by intra muscular injection every month Cyanocobalamin 1000 MCG/ML Injection Solution INJECT 1 ML INTRAMUSCULARLY ONCE A MONTH Refills: 0 Ericka Villela MD Start : 11-Sep-2020 Admin Requested Start: 09-05-2019 inject 1 mL by intra muscular injection every month Cyanocobalamin 1000 MCG/ML Injection Solution INJECT 1 ML INTRAMUSCULARLY ONCE A MONTH Refills: 0 Ericka Villela MD Start : 05-Sep-2019 Admin Requested Start: 09-05-2019 inject 1 mL by intra muscular injection every month Cyanocobalamin 1000 MCG/ML Injection Solution INJECT 1 ML INTRAMUSCULARLY ONCE A MONTH Refills: 0 Ericka Villela MD Start : 05-Sep-2019 Admin Requested Start: 03-28-2019 Cyanocobalamin 1000 MCG/ML Injection Solution Inject 1ML intramuscularly today. Quantity: 0 Refills: 0 Ordered: 06-May-2021 Ericka Villela MD Start : 06-May-2021 Complete Start: 03-28-2019 Cyanocobalamin 1000 MCG/ML Injection Solution Inject 1ML intramuscularly today. Quantity: 0 Refills: 0 Ericka Villela MD Start : 28-Mar-2019 Admin Requested Start: 07-21-2013 cyanocobalamin (Vitamin B-12) 1,000 mcg/mL injection Inject 1 mL (1,000 mcg) into the muscle. 07/21/2013 Active Cyanocobalamin 1 000 MCG/ML Injection Solution Refills: 0 Active Vitamin D CAPS (20 sources) Vitamin D CAPS T LIDIA 1 CAPSULE Daily take a total of 5,000 iu a day Quantity: 0 Refills: 0 Ordered: 03-May-2019 DO Active Problems Active Problems Problem Classification Problem Date Documented Date Episodic/Chronic Acute bronchitis (12 sources) Acute bronchitis; Translations: [Acute bronchitis] Episodic Chronic ulcer of skin (2 sources) Skin ulcer; Translations: [Non-pressure chronic ulcer of skin of other sites limited to breakdown of skin] Onset: 5 02-17-2025 Chronic Complications of surgical procedures or medical care (15 sources) Post-surgical malabsorption; Translations: [Postsurgical malabsorption, not elsewhere classified] Onset: 3 07-21-2013 Chronic Deficiency and other anemia (20 sources) Nutritional anemia; Translations: [Other vitamin B12 deficiency anemia] Onset: 3 11-11-2022 Episodic Diabetes mellitus without complication (20 sources) Diabetes mellitus; Translations: [Diabetes mellitus without mention of complication, type II or unspecified type, not stated as uncontrolled] Onset: 3 11-11-2022 Chronic Disorders of lipid metabolism (20 sources) Hypercholesterolemia; Translations: [Pure hypercholesterolemia] Onset: 3 11-11-2022 Chronic Esophageal disorders (20 sources) Gastroesophageal reflux disease; Translations: [Esophageal reflux] Onset: 3 11-11-2022 Chronic Essential hypertension (20 sources) Hypertensive disorder; Translations: [Unspecified essential hypertension] Onset: 1 11-11-2022 Chronic Fracture of upper limb (20 sources) Fracture at wrist and/or hand level; Translations: [Closed fracture of carpal bone, unspecified] Onset: 5 Episodic Fracture of upper limb (19 sources) Closed fracture of distal end of left radius; Translations: [Unspecified fracture of the lower end of left radius, initial encounter for closed fracture] Onset: 5 02-14-2025 Episodic Joint disorders and dislocations; trauma-related (1 source) Chondromalacia of right patella; Translations: [Chondromalacia patellae, right knee] 05-25-2024 Chronic Mood disorders (20 sources) Severe major depression, single episode; Translations: [Major depressive affective disorder, single episode, severe, without mention of psychotic behavior] Onset: 3 11-11-2022 Chronic Nausea and vomiting (1 source) Nausea, vomiting and diarrhea; Translations: [Nausea with vomiting, unspecified] Episodic Nutritional deficiencies (20 sources) Vitamin D deficiency; Translations: [Unspecified vitamin D deficiency] Onset: 1 07-24-2021 Chronic Osteoarthritis (20 sources) Osteoarthritis of knee; Translations: [Osteoarthrosis, localized, not specified whether primary or secondary, lower leg] Onset: 3 11-11-2022 Chronic Osteoporosis (20 sources) Osteoporosis; Translations: [Osteoporosis, unspecified] Onset: 3 11-11-2022 Chronic Other aftercare (20 sources) Drug therapy finding; Translations: [Long-term (current) use of other medications] Resolved: 2 Episodic Other circulatory disease (4 sources) H/O: cardiovascular disease; Translations: [History of peripheral vascular disease] Episodic Other circulatory disease (20 sources) H/O: hypertension; Translations: [Personal history of other diseases of circulatory system] Onset: 1 07-24-2021 Episodic Other circulatory disease (20 sources) History of peripheral vascular disease; Translations: [Personal history of other diseases of circulatory system] Episodic Other connective tissue disease (1 source) Artificial knee joint present; Translations: [Presence of right artificial knee joint] 01-31-2025 Chronic Other connective tissue disease (20 sources) Personal history of arthritis; Translations: [History of Osteoarthritis] Episodic Other connective tissue disease (2 sources) Muscle spasm of cervical muscle of neck; Translations: [Other muscle spasm] 10-25-2024 Episodic Other diseases of kidney and ureters (2 sources) Secondary hyperparathyroidism of renal origin; Translations: [Secondary hyperparathyroidism of renal origin (Multi)] Onset: 4 Chronic Other female genital disorders (20 sources) Polyp of corpus uteri; Translations: [Polyp of corpus uteri] Episodic Other female genital disorders (3 sources) Polyp of corpus uteri; Translations: [Endometrial polyp] Episodic Other gastrointestinal disorders (20 sources) Intestinal malabsorption; Translations: [Unspecified intestinal malabsorption] Onset: 3 11-11-2022 Chronic Other gastrointestinal disorders (20 sources) Personal history of other diseases of the digestive system; Translations: [History of esophageal ulcer] Episodic Other gastrointestinal disorders (17 sources) Constipation; Translations: [Constipation] Episodic Other gastrointestinal disorders (20 sources) H/O: abdominal hernia; Translations: [Personal history of other diseases of digestive system] Episodic Other gastrointestinal disorders (20 sources) History of irritable bowel syndrome; Translations: [Personal history of other diseases of digestive system] Episodic Other gastrointestinal disorders (1 source) Other dysphagia; Translations: [Other dysphagia] Onset: 3 Episodic Other injuries and conditions due to external causes (20 sources) Injury of ribs; Translations: [Other injury of chest wall] Resolved: 2 Episodic Other injuries and conditions due to external causes (20 sources) H/O: fracture; Translations: [Personal history of traumatic fracture] Episodic Other injuries and conditions due to external causes (17 sources) Contusion of back; Translations: [Back contusion] Episodic Other lower respiratory disease (12 sources) Cough; Translations: [Cough] Episodic Other nervous system disorders (20 sources) Mononeuritis multiplex; 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] Onset: 3 11-11-2022 Chronic Comment on above: Nonsystemic vasculit ic neuropathy; Other non-traumatic joint disorders (20 sources) Knee pain; Translations: [Acute pain of left knee] Episodic Other non-traumatic joint disorders (20 sources) Pain in wrist; Translations: [Pain in joint, forearm] Resolved: 0 03-01-2025 Episodic Other non-traumatic joint disorders (1 source) Pain in left wrist; Translations: [Pain and swelling of wrist, left] Onset: 5 Episodic Other non-traumatic joint disorders (1 source) Effusion, left wrist; Translations: [Pain and swelling of wrist, left] Onset: 5 Episodic Other nutritional; endocrine; and metabolic disorders (20 sources) Morbid obesity; Translations: [Morbid obesity] Chronic Other nutritional; endocrine; and metabolic disorders (1 source) Drug-induced obesity; Translations: [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, unspecified whether serious comorbidity present] 08-24-2024 Chronic Other nutritional; endocrine; and metabolic disorders (8 sources) Obese class I; Translations: [Obesity, Class I, BMI 30-34.9] Onset: 5 02-16-2025 Chronic Other nutritional; endocrine; and metabolic disorders (2 sources) Drug-induced obesity; 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] Onset: 4 Chronic Other nutritional; endocrine; and metabolic disorders (2 sources) Body mass index (BMI) 32.0-32.9, adult; Translations: [Body mass index (BMI) 32.0-32.9, adult] Onset: 4 Chronic Other nutritional; endocrine; and metabolic disorders (20 sources) Personal history of other endocrine, nutritional and metabolic disease; Translations: [History of diabetes mellitus type 2] Episodic Other screening for suspected conditions (not mental disorders or infectious disease) (20 sources) Liver enzymes abnormal; Translations: [Mammography abnormal] Onset: 3 Resolved: 5 12-24-2022 Episodic Other upper respiratory disease (20 sources) Disorder of vocal cord; 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, unilateral] Onset: 3 08-31-2023 Chronic Other upper respiratory disease (1 source) Vocal cord paralysis; 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, unilateral] 08-08-2024 Chronic Other upper respiratory disease (12 sources) Change in voice; Translations: [Unspecified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 strength, and symptom management. PROMIS? (Patient-Reported Outcomes Measurement Information System) scores were reviewed and identified as a rehabilitation concern. Prognosis for therapy is Good due to: current objective clinical presentation, good overall health status, acuteness of condition . The patient will benefit from skilled therapy services to meet the goals established for this plan of care as noted below. Goals for Episode of Care: established 03/01/25 Patient reported outcome of upper extremity will increase T-score by a minimum 5 points. Patient will report a good understanding of diagnosis and OT recommendations for progression of program. Patient will demonstrate independence with ongoing home recommendations/exercis e program throughout therapy plan of care. Patient will increase AROM of Left wrist and forearm to preinjury levels in order to be able to improve function for prior functional tasks. Patient will independently demonstrate correct application of CUSTOM orthosis and verbalize understanding of proper wear/care. Patient Goals: Get back to normal use of hand Time Frame for Goals and Treatment : 05/30/25 Planned Interventions, Frequency, and Duration: Current Frequency: 1x/week Duration: 12 weeks Total Number of Visits Planned: 12 Planned Treatment Interventions: Therapeutic exercise (69139), Therapeutic activities (43246), Manual therapy (77843), Self-half-way management (21621), Patient/Family/Caregive r Education, Custom orthosis fabrication, Orthotics management and training ([id number]) PLAN FOR NEXT VISIT:Orthosis adjustments as needed. Patient independently and correctly demonstrated home mobility and symptom management program. Patient agreed to continue efforts. Will upgrade program according to patient progress. Patient demonstrates good understanding of plan of care and treatment. The above goals and plan of care were discussed and agreed upon by patient/family. For further details regarding this patient refer to the Occupational Therapy electronically documented visit dated 03/01/2025. Provider Attestation I have reviewed the treatment plan for Porsha House, CC# [id number] for the period of 03/01/25 -- 05/30/25, established on 03/01/2025. Signature certifies the need for therapy services. Normal [facility] CNOVon 03-01-2025 CNOV Office Visit (AGPOB3 ) PORSHA HOUSE ([id number]) 1960 F [facility] Date Time Provider Department 03/01/25 11:15 AM TOMAS GRAMAJO During your visit today, we recorded the following information about you: Respiration Weight Height 18/minute 78.5 kg 1.575 m Yehuda Kirk PA-C 03/01/2025 11:51 AM Signed HAND SURGERY POST-OP NOTE Surgical Hx: Vasculitis on Lyrica with chronic right more than left hand numbness and motor loss 02/02/2025 fall, left intra-articular dorsally angulated distal radius fracture 02/19/2025 left distal radius ORIF, left thumb IANDD and wound closure Interval Hx: Patient is 10 days post op. She is doing well, denies any new numbness, tingling or pain. Exam: Left wrist Incisions are healing nicely, no signs of infection. Able to make a fist. No pain with gentle motion at the wrist. Sensation decreased at fingertips but this is her baseline. Imaging: Images taken today were personally reviewed and interpreted, these revealed 3 views of left wrist demonstrating well-maintained joint alignment and fracture alignment, hardware is intact with no signs of loosening or complication. Assessment/Plan: (G76.699T) Closed Colles' fracture of left radius with routine healing, subsequent encounter (primary encounter diagnosis) (Z98.890) Post-operative state Images were reviewed in detail with the patient today, she is doing great. Sutures were removed today, she tolerated well. I will send her to occupational therapy for a thermoplastic splint which she will wear at all times except for motion exercises and hygiene purposes. She may wash incisions with soap and water and may not soak them, submerge them or apply any lotions for the next 5 days. She will be nonweightbearing on this extremity for total of 6 weeks postop. I will have her try a Priscilla Brooks thumb spica brace on the right hand for comfort. Follow-up in 4 weeks with me in [place], x-rays Patient was also evaluated by Dr Tomas Kirk PA-C Hand Surgery The above reflects my independent exam and review. I saw and examined the patient myself personally. Parts of the HPI, ROS, exam and impression/plan may have been copied from my personal previous clinical note and remain pertinent. Current changes have been made and documented today. Other parts or date were deleted if not relevant for today. Plan as outlined. *This note was produced using speech recognition software and may contain errors related to that system including but not limited to punctuation, spelling, grammar, gender, and words or phrases that may be inappropriate. Allergies As of Date: 03/01/2025 Noted Allergy Reaction IBUPROFEN 03/09/2013 2 - Rash 10 - Anaphylaxis NAPRELAN (NAPROXEN SODIUM) 03/09/2013 2 - Rash 10 - Anaphylaxis TAPE (ADHESIVE TAPE (ROSINS)) 05/11/2013 14 - Other: See Comments Comments: Skin is thin, tape peels skin off ZITHROMAX (AZITHROMYCIN) 03/09/2013 14 - Other: See Comments Comments: Skin on tongue peels off Date Reviewed: 03/01/2025 Reviewed by: Samantha Chaves Tech - Fully Assessed Reason for Visit: Post Op [174] Primary Visit Diagnosis:Closed Colles' fracture of left radius with routine healing, subsequent encounter [S56.532D] Other Visit Diagnosis:Post-operativ e state [Z98.890] Order(s):XR WRIST GENERAL 3V PA/LAT/OBL LEFT [[id number]] Order #: [id number] CONSULT TO COLLATOR OPERATOR [[id number]] Order #: [id number]: 1 FUTURE Prescriptions as of 03/01/2025 - cholecalciferol, vitamin D3, (VITAMIN D3 ORAL) Take by mouth. - POTASSIUM ORAL Take by mouth. - denosumab (PROLIA) 60 mg/mL as directed Subcutaneous - pantoprazole DR (PROTONIX) 40 mg tablet Take 40 mg by mouth once daily. - lisinopril (ZESTRIL, PRINIVIL) 10 mg tablet Take 10 mg by mouth once daily. - cyanocobalamin, Vitamin B12, 1,000 mcg/mL Soln Inject 1 mL intramuscularly as directed for 1 dose. - atorvastatin (LIPITOR) 10 mg tablet Take 10 mg by mouth once daily. - pregabalin (LYRICA) 75 mg capsule Take 75 mg by mouth once daily. - Vit 82-Hxyy-LT-DSS ( AD) 90-1-50 mg Tab Take by mouth. Problem List As Of Date 03/01/2025 Noted Resolved Degenerative arthritis of right knee [M17.11] 03/10/2013 Vasculitis [I77.6] Pure hypercholesterolemia [E78.00] Other vitamin B12 deficiency anemia [D51.8] Osteoporosis [M81.0] Other and unspecified postsurgical nonabsorptio*07/21/2013 S/P knee replacement [Z96.659] 08/21/2013 Obesity, Class I, BMI 30-34.9 [E66.811] 02/16/2025 Preop testing [Z01.818] 02/19/2025 Closed fracture of left distal radius [S52.502A]02/19/2025 Hyperlipidemia [E78.5] 02/19/2025 Gastroesophageal reflux disease [K21.9] 02/19/2025 Hypertension [I10] 02/19/2025 Letter Text Encounter Status:Closed by YEHUDA KIRK on 03/01/25 [facility] CNTHERAPYon 03-01-2025 CNTHERAPY OT/PT/Speech Visit ([facility]) PORSHA HOUSE ([id number]) 1960 F C[facility] Date Time Provider Department 03/01/25 11:15 AM SABRINA XIONG Date Time Provider Department Center 03/01/2025 11:15 AM [id number] XIONG [facility] Reason for Visit: OT EVAL [748] Primary Visit Diagnosis:Pain and swelling of wrist, left [M25.532, M25.432] Other Visit Diagnoses:Closed Colles' fracture of left radius with routine healing, subsequent encounter [S52.532D] Post-operative state [Z98.890] Allergies As of Date: 03/01/2025 Noted Allergy Reaction IBUPROFEN 03/09/2013 2 - Rash 10 - Anaphylaxis NAPRELAN (NAPROXEN SODIUM) 03/09/2013 2 - Rash 10 - Anaphylaxis TAPE (ADHESIVE TAPE (ROSINS)) 05/11/2013 14 - Other: See Comments Comments: Skin is thin, tape peels skin off ZITHROMAX (AZITHROMYCIN) 03/09/2013 14 - Other: See Comments Comments: Skin on tongue peels off Date Reviewed: 03/01/2025 Reviewed by: Samantha Chaves Tech - Fully Assessed Prescriptions as of 03/01/2025 - cholecalciferol, vitamin D3, (VITAMIN D3 ORAL) Take by mouth. - POTASSIUM ORAL Take by mouth. - denosumab (PROLIA) 60 mg/mL as directed Subcutaneous - pantoprazole DR (PROTONIX) 40 mg tablet Take 40 mg by mouth once daily. - lisinopril (ZESTRIL, PRINIVIL) 10 mg tablet Take 10 mg by mouth once daily. - cyanocobalamin, Vitamin B12, 1,000 mcg/mL Soln Inject 1 mL intramuscularly as directed for 1 dose. - atorvastatin (LIPITOR) 10 mg tablet Take 10 mg by mouth once daily. - pregabalin (LYRICA) 75 mg capsule Take 75 mg by mouth once daily. - Vit 26-Fslg-ZP-DSS ( AD) 90-1-50 mg Tab Take by mouth. Risk Analyst: Therapy (PT/OT/Speech/Resp) ID: [id number] 03/01/2025 12:56 PM Author: SABRINA XIONG Signed by SABRINA XIONG OTR/L on 03/01/2025 at 12:56 PM Document text: Program_ID:[id number] Access Code: [email or web address] URL: [email or web address] Date: 03-01-2025 Prepared By: Sabrina Xiong Program Notes Exercises - Wrist Tendon Gliding - 4 x daily - 7 x weekly - 1 sets - 10 reps - Seated Elbow Flexion and Extension AROM - 4 x daily - 7 x weekly - 1 sets - 10 reps - Seated Forearm Pronation and Supination AROM - 4 x daily - 7 x weekly - 1 sets - 10 reps - Wrist Flexion Extension AROM - Palms Down - 4 x daily - 7 x weekly - 1 sets - 10 reps - Seated Wrist Radial and Ulnar Deviation AROM - 4 x daily - 7 x weekly - 1 sets - 10 reps Patient Education - CC Edema Swelling Control UE Normal [facility] THERAPY NTon 03-01-2025 THERAPY NT HNO ID: [id number] Author: SABRINA XIONG OTR/Julián Service: ? Author Type: Occupational Therapist Type: Therapy (PT/OT/Speech/Resp) Filed: 03/01/2025 12:56 Note Text: Program_ID:[id number] Access Code: [email or web address] URL: [email or web address] Date: 03-01-2025 Prepared By: Sabrina Xiong Program Notes Exercises - Wrist Tendon Gliding - 4 x daily - 7 x weekly - 1 sets - 10 reps - Seated Elbow Flexion and Extension AROM - 4 x daily - 7 x weekly - 1 sets - 10 reps - Seated Forearm Pronation and Supination AROM - 4 x daily - 7 x weekly - 1 sets - 10 reps - Wrist Flexion Extension AROM - Palms Down - 4 x daily - 7 x weekly - 1 sets - 10 reps - Seated Wrist Radial and Ulnar Deviation AROM - 4 x daily - 7 x weekly - 1 sets - 10 reps Patient Education - CC Edema Swelling Control UE Normal [facility] ANES POSTPROC EVALon 025 ANES POSTPROC EVAL HNO ID: [id number] Author: UGO KHAN MD Service: Anesthesiology Author Type: Physician Type: Anesthesia Postprocedure Evaluation Filed: 02/19/2025 16:45 Note Text: POST ANESTHESIA EVALUATION NOTE : 1960 Procedure Summary Date: 02/19/25 Room / Location: [place] [address] / [facility] Anesthesia Start: 1315 Anesthesia Stop: 1516 Procedure: ORIF DISTAL RADIUS THREE OR MORE FRAGMENTS (Left: Arm) Diagnosis: Closed fracture of distal end of left radius, unspecified fracture morphology, initial encounter (Closed fracture of distal end of left radius, unspecified fracture morphology, initial encounter [S52.502A]) Surgeons: Tomas Gramajo MD Responsible Provider: Ugo Khan MD Anesthesia Type: general ASA Status: 3 Anesthesia Type: general Airway Type: LMA Last Vitals Vitals Value Taken Time BP 170/90 02/19/25 1626 Temp 36 ?C (96.8 ?F) 02/19/25 1516 HR SpO2 87 02/19/25 1627 Resp 18 02/19/25 1627 SpO2 94 % 02/19/25 162 Vitals shown include unfiled device data. Post Anesthesia Patient Status Patient Evaluation: PACU. PACU/ICU Patient Condition: stable. Anticipated Disposition: phase 2 then home. Neurological Status: aware and responsive. Pulmonary Status: breathing comfortably on room air Airway Control: returned to baseline unsupported. Cardiovascular Status: stable. Pain Management: clinically adequate Postoperative Hydration: acceptable. Intraoperative Events: no significant anesthesia events Post Operative Nausea/Vomiting Status: no significant post operative nausea or vomiting Recommendation: continue current plan of care. Anesthesia Observations No Documentation SIGNATURE: Ugo Khan MD PATIENT NAME: Porsha House DATE: February 19, 2025 TIME: 4:45 PM CSN: [id number] Normal [facility] ANES PRE-OPon 02-19-2025 ANES PRE-OP HNO ID: [id number] Author: UGO KHAN MD Service: Anesthesiology Author Type: Physician Type: Anesthesia Preprocedure Evaluation Filed: 02/19/2025 12:36 Note Text: ANESTHESIOLOGY DAY OF SURGERY NOTE : 1960 Procedure Information Date/Time: 02/19/25 1229 Procedure: ORIF DISTAL RADIUS THREE OR MORE FRAGMENTS (Left: Arm) - REGIONAL Location: [place] [address] / [facility] Surgeons: Tomas Gramajo MD Estimated body mass index is 31.09 kg/m? as calculated from the following: Height as of this encounter: 157.5 cm (5' 2). Weight as of this encounter: 77.1 kg (170 lb). Most recent hematocrit and potassium results: Hematocrit 28.3 08/05/2013 Potassium 3.4 08/02/2013 Relevant Problems CARDIO (+) Hypertension (+) Vasculitis GI (+) Gastroesophageal reflux disease Other (+) Degenerative arthritis of right knee I - PHYSICAL EVALUATION AIRWAY Patient intubated: No. Tracheostomy tube not present Mallampati: II. TM distance: >3 FB. Neck ROM: full ROM without neurological symptoms. Mouth opening: adequate. Short neck: no. Thick neck: no DENTAL Dental findings: teeth intact. Additional exam findings: no II - ANESTHESIA PLAN ASA Score: 3 Anesthetic Plan: general Airway type: LMA The patient is not a current smoker. NPO Status: adequate Anesthetic plan additional comments: Hx significant for vasculitis and chronic neuropathy - patient prefers no nerve block HLD HTN Hx vocal cord procedure with improvement - no further hoarseness - plan for LMA. Beta Ok Monitoring Plan Monitoring plan: standard ASA. Post Procedure Analgesic Plan Postoperative analgesic plan: multimodal analgesia and parenteral or oral opioids. Informed Consent Anesthetic risks, benefits, alternatives, personnel and consent discussed: yes. Patient / Responsible Libertarian agrees to proceed: yes Patient / Surrogate agrees to blood products: blood products not planned Significant changes in the patient condition since the History and Physical, not otherwise documented in primary service progress note: no. Potential Anesthesia issues that may suggest increased risk of complications or contraindication to planned procedure: none. No vitals data found for the desired time range. No current facility-administered medications on file as of 02/19/2025. Outpatient Medications as of 02/19/2025 Medication Sig cholecalciferol, vitamin D3, (VITAMIN D3 ORAL) Take by mouth. POTASSIUM ORAL Take by mouth. denosumab (PROLIA) 60 mg/mL as directed Subcutaneous pantoprazole DR (PROTONIX) 40 mg tablet Take 40 mg by mouth once daily. lisinopril (ZESTRIL, PRINIVIL) 10 mg tablet Take 10 mg by mouth once daily. cyanocobalamin, Vitamin B12, 1,000 mcg/mL Soln Inject 1 mL intramuscularly as directed for 1 dose. atorvastatin (LIPITOR) 10 mg tablet Take 10 mg by mouth once daily. pregabalin (LYRICA) 75 mg capsule Take 75 mg by mouth once daily. Vit 36-Raau-MS-DSS ( AD) 90-1-50 mg Tab Take by mouth. I have interviewed and examined the patient. I have reviewed the medical record and/or the pre-anesthesia evaluation, pertinent labs, and test results. This contains updated information obtained within 48 hours of Surgery/Procedure. SIGNATURE: Ugo Khan MD PATIENT NAME: Porsha House DATE: February 19, 2025 TIME: 12:08 PM CSN: [id number] Normal [facility] HISTORY PHYSICALon HISTORY PHYSICAL HNO ID: [id number] Author: FLORIAN JOAQUIN APRN.PLANT RELIABILITY ENGINEER Service: Anesthesiology Author Type: Nurse Practitioner Type: H&P Filed: 02/19/2025 12:28 Note Text: HISTORY AND PHYSICAL EXAMINATION Porsha House 1960 SERVICE DATE: 02/19/2025 SERVICE TIME: 12:04 PM PRIMARY CARE PHYSICIAN: Ericka Villela MD SURGEON: Surgeons and Role: * Tomas Gramajo MD - Primary ANESTHESIA: Block Regional - Extremity Upper DIAGNOSIS: Closed fracture of distal end of left radius, unspecified fracture morphology, initial encounter [S52.502A] PROCEDURE: Procedure(s) with comments: ORIF DISTAL RADIUS THREE OR MORE FRAGMENTS (Left) - REGIONAL ACTIVE PROBLEM LIST Degenerative Arthritis of Right Knee Vasculitis Pure Hypercholesterolemia Other Vitamin B12 Deficiency Anemia Osteoporosis Other and Unspecified Postsurgical Nonabsorption S/P Knee Replacement Obesity, Class I, Bmi 30-34.9 Subjective The reason for this visit is to perform a comprehensive review of the patient's past medical history, assess their current health status and obtain any additional testing required based on anesthesia guidelines. We will also identify any potential anesthesia problems or contraindications to the planned procedure. CHIEF COMPLAINT: Left distal radius fracture HPI: This is a 64 year old female who presents with c/o left distal radius fracture. Pt states she fell 02/03 and broke her left distal radius. Pt c/o pain, numbness and tingling. She has hx of vasculitis and states this increases her pain also in her left arm with it being in a cast currently. She rates her pain 6/10 right now. ANESTHESIA FINDINGS: Intubation History: No history of difficult intubation Significant Anesthesia Considerations: None; pt had recent surgery for paralyzed vocal cord- fat grafting- in 2023- Dr. Khan, anesthesiologist notified FAMILY PROBLEMS WITH ANESTHESIA: no history of adverse anesthetic event METS: Climb a flight of stairs or walk up a hill (5.50 METs) FUNCTIONAL STATUS: Independent PAST MEDICAL HISTORY Diagnosis Date Arteritis, unspecified Fracture lt arm GERD (gastroesophageal reflux disease) HTN (hypertension) Osteoporosis Other vitamin B12 deficiency anemia Pure hypercholesterolemia Vasculitis right arm-chemotherapy 6 cycles PAST SURGICAL HISTORY Procedure Laterality Date ARTHRP KNE CONDYLEANDPLATU MEDIALANDLAT COMPARTMENTS 08/01/2013 Knee replacement, total right PAST SURGICAL HISTORY OF gall bladder PAST SURGICAL HISTORY OF bilateral heel spurs PAST SURGICAL HISTORY OF right inguinal hernia PAST SURGICAL HISTORY OF tendon transfer right arm PAST SURGICAL HISTORY OF bilateral benign breast lump PAST SURGICAL HISTORY OF gastric bypass PAST SURGICAL HISTORY OF kidney stones lithrotripsy PAST SURGICAL HISTORY OF 2019 Cervical fusion PAST SURGICAL HISTORY OF 2023 surgery for paralyzed vocal cords History reviewed. No pertinent family history. Social History Tobacco Use Smoking status: Never Smokeless tobacco: Never Substance Use Topics Alcohol use: No Drug use: No Prior to Admission medications as of 02/19/25 1225 Medication Sig Last Dose Taking oxyCODONE IR (ROXICODONE) 5 mg immediate release tablet Take 1 tablet by mouth every 6 hours as needed for pain for up to 7 days. for pain. 02/18/2025 Evening Yes cholecalciferol, vitamin D3, (VITAMIN D3 ORAL) Take by mouth. Yes POTASSIUM ORAL Take by mouth. Yes denosumab (PROLIA) 60 mg/mL as directed Subcutaneous Yes pantoprazole DR (PROTONIX) 40 mg tablet Take 40 mg by mouth once daily. 02/18/2025 Yes lisinopril (ZESTRIL, PRINIVIL) 10 mg tablet Take 10 mg by mouth once daily. 02/18/2025 Evening Yes cyanocobalamin, Vitamin B12, 1,000 mcg/mL Soln Inject 1 mL intramuscularly as directed for 1 dose. Yes atorvastatin (LIPITOR) 10 mg tablet Take 10 mg by mouth once daily. 02/18/2025 Evening Yes pregabalin (LYRICA) 75 mg capsule Take 75 mg by mouth once daily. 02/18/2025 Evening Yes Vit 38-Jydh-YI-DSS ( AD) 90-1-50 mg Tab Take by mouth. Yes ALLERGIES Allergen Reactions Ibuprofen Rash, Anaphylaxis Naprelan [Naproxen * Rash, Anaphylaxis Tape [Adhesive Tape* Other: See Comments Skin is thin, tape peels skin off Zithromax [Azithrom* Other: See Comments Skin on tongue peels off COMPLETE REVIEW OF SYSTEMS: PAIN ASSESSMENT: Pain Pain Level: 6 Pain Location: Hand-Left Pain Assessment: Assessment Description: Aching Duration: Continuous Intervention/Comfort measure: Reposition, Relaxation Tool: Verbal (Numeric Rating or Visual Analog Scale) General: No weight loss, malaise or fevers. Neuro: No neurological symptoms or problems; no hx of seizure or stroke Respiratory: No history of current cough, wheezing, dyspnea, or recent pneumonia; no hx of asthma, COPD, or ELLEN Cardiovascular: No history of chest pain, palpitations, CHF, NV, cardiac surgery or stents; + dysl (more content not included)... [facility] NURSING PROGon 02-19-2025 NURSING PROG HNO ID: [id number] Author: VIDYA ADAMS RN Service: ? Author Type: Registered Nurse Type: Nursing Progress Note Filed: 02/19/2025 16:49 Note Text: Patient dressed with assistance at bedside. Patient discharged home in stable condition with sister in law Verónica. [facility] OPERATIVE NOon 02-19-2025 OPERATIVE NO HNO ID: [id number] Author: TOMAS GRAMAJO MD Service: Orthopaedic Surgery Author Type: Physician Type: Operative Report Filed: 02/19/2025 15:23 Note Text: Hand Surgery Operative Note PATIENT: Porsha House [id number] DATE OF SURGERY: 02/19/2025 PREOPERATIVE DIAGNOSES: Left intra-articular distal radius fracture Left thumb deep wound POSTOPERATIVE DIAGNOSES: Same OPERATION: Open treatment of intraarticular distal radial fracture or epiphyseal separation with internal fixation of three or more fragments -left distal radius ORIF Left thumb debridement skin and subcu Left thumb simple wound closure approximately 2 x 2 cm Application of short arm splint (forearm to hand); static ANESTHESIA: Regional and MAC ATTENDING SURGEON: Tomas Gramajo MD SALES ASSISTANT ENTERTAINMENT AND MEDIA SURGEON: There were no qualified residents available to assist in the case Yehuda Kirk PA-C was the assistant quality manager Under the supervision of the attending surgeon, they assisted during the entire operation and their involvement included: positioning the patient, prepping the surgical site, draping the surgical field, retraction during the approach, assistance during the critical steps of the procedure, wound closure, and application of the dressing. START/END TIMES: Incision/Procedure Start Time: 1:42 PM Incision Close/Procedure End Time: 3:09 PM TOURNIQUET TIME: 58 min EBL: 20 cc SPECIMENS: None COMPLICATIONS: None COUNTS: All counts were noted to be correct prior to skin closure. IMPLANTS: Acumed gold narrow DISPOSITION: PACU then home CLINICAL INDICATIONS: See office notes for complete details. Risks, benefits, and alternatives of surgical treatment were discussed with the patient at length. Benefits of surgical treatment, such as improvement in function and treatment of the underlying condition, were discussed. Alternatives to surgery, including continued non-operative treatment, were discussed. General medical and anesthesia risks of surgery, such as stroke, heart attack, blood clots, and were discussed. Surgical risks, including but not limited to infection, bleeding, scarring, stiffness, residual pain, CRPS, injury to nerves,arteries, tendons, ligaments, nonunion, malunion, painful hardware, failure of hardware, need for revision surgery, and even loss of limb were discussed. No guarantees were made or implied. After weighing these risks and benefits, and considering the alternatives, patient wished to proceed with surgical treatment. A signed and witnessed informed consent was confirmed to be completed. The site was marked by the surgical team and confirmed by the patient. DESCRIPTION OF PROCEDURE: The patient was placed in the supine position on a regular operating table with a hand table. Anesthesia was established and all body parts were well padded and protected to make sure there were no pressure points. The surgical area was prepped and draped in the appropriate sterile fashion. A timeout was performed confirming the patient, the laterality, and the procedure being performed. Antibiotics were administered. Extremity was exsanguinated and tourniquet was inflated. An approximately 8-10 cm incision was made over the left wrist FCR tendon. Dissection was carried down through the subcu tissue to the FCR tendon sheath. Bipolar was used to coagulate vessels. The radial artery was identified and care was taken to protect it radially. Incision was made in the FCR tendon sheath. The FCR was retracted ulnar and dissection was carried down to the deeper fascia of the FCR sheath. The palmar cutaneous nerve was not encountered. The sheath was incised and the FPL was identified and retracted ulnar. The PQ was identified and removed from the distal radius along the radial and distal border and retracted ulnar w/ subperiosteal dissection. The volar surface of the distal radius fracture was thus visualized. The fracture had partially healed. I needed to use a [place] to find the fracture line and mobilized the fragment and Iconfirmed the fracture line with fluoroscopy. I released the BR tendon. The distal fragment was now mobile. Reduction was confirmed w/ cortical read and fluoro. The distal radius plate was applied to the volar surface and secured w/ K wires. Fluoro confirmed appropriate plate placement. Kickstand was used to angle the screws away from the articular surface. Locking screws were inserted into the distal aspect of the plate in standard fashion. Fluoro confirmed maintained reduction, appropriate screw length, no screw in the DRUJ, and no screw in the radiocarpal joint. The kickstand was removed, the retrograde radial styloid wire was removed, and a lobster claw was used to bring the shaft of the plate down to the shaft of the radius which assisted in increasing the volar tilt of the joint surface. 2 cortical screws and 1 locking screw placed (more content not included)... Normal [facility] XR WRIST 2V PA/LAT LTon 05-0 XR WRIST 2V PA/LAT LT * * *Final Report* * * DATE OF EXAM: Feb 19 2025 3:15PM AWX [id number] - XR WRIST 2V PA/LAT LT / PROCEDURE REASON: surgery * * * * Physician Interpretation * * * * EXAM TITLE: XR WRIST 2V PA/LAT LT DATE: 02/19/2025 COMPARISON: 02/03/2025 CLINICAL INDICATION/HISTORY: Fracture, left wrist pain TECHNIQUE: Intraoperative fluoroscopy FINDINGS: 1 minute and 35 seconds of intraoperative fluoroscopy time utilized during open reduction and internal fixation of a distal left radial fracture. 10 intraoperative spot films are submitted and show alignment of the fracture fragments prior to placement of a volar buttress plate and multiple fixation screws which hold the fragments in near anatomic alignment and position. Tiny fracture at the distal ulnar styloid. IMPRESSION: Fluoroscopy provided for a surgical procedure at the left wrist. Bow Maker Machine Tender: TATY Transcribe Date/Time: Feb 19 2025 3:32P Dictated by : LACI GALINDO MD This examination was interpreted and the report reviewed and electronically signed by: LACI GALINDO MD on Feb 19 2025 3:33PM EST [id number] Normal [facility] CNOVon 02-14-2025 CNOV Office Visit (ORMDNA ) PORSHA HOUSE ([id number]) 1960 F [facility] Date Time Provider Department 02/14/25 3:00 PM GUILLAUME MERRILL During your visit today, we recorded the following information about you: Guillaume Merrill MD 03/14/2025 8:50 PM Signed here for follow-up of her left distal radius fracture.. She was placed into a short arm cast at the time of her last visit. She reports that her wrist is still painful. She has been taking oxycodone and Tylenol for pain relief objective: Short arm cast in good repair Patient with active range of motion of the digits. Subjective sensory changes in median nerve distribution similar to that which she was experiencing at the time of her injury x-rays left wrist show foreshortening, radial deviation, and dorsal angulation of distal radius Assessment: comminuted malaligned distal radius fracture. fracture is no longer acceptably aligned. I have recommended a referral to a hand subspecialist for evaluation and definitive care is that this will likely require open reduction internal fixation. Splane that her fracture this magnitude is beyond the scope of my practice she understands and agrees Plan: 1. Refer patient to Dr. Gramajo for definitive care. The patient does not stand that this may likely require surgical intervention. 2. New prescription for oxycodone issued until definitive care with the technical marketing consultant can be arranged Allergies As of Date: 02/14/2025 Noted Allergy Reaction IBUPROFEN 03/09/2013 2 - Rash 10 - Anaphylaxis NAPRELAN (NAPROXEN SODIUM) 03/09/2013 2 - Rash 10 - Anaphylaxis TAPE (ADHESIVE TAPE (ROSINS)) 05/11/2013 14 - Other: See Comments Comments: Skin is thin, tape peels skin off ZITHROMAX (AZITHROMYCIN) 03/09/2013 14 - Other: See Comments Comments: Skin on tongue peels off Date Reviewed: 02/14/2025 Reviewed by: Angi Bliss MA - Fully Assessed Reason for Visit: Established Patient [175] Follow Up [171] Fracture [4131] CAST [Other] Visit Diagnosis:Closed Colles' fracture of left radius, initial encounter [S52.532A] Order(s):[] oxyCODONE IR (ROXICODONE) 5 mg immediate release tabletTake 1 tablet by mouth every 6 hours as needed for pain for up to 7 days. for pain.Disp: 20 tabletRfl: 0 Prescriptions as of 03/14/2025 - cholecalciferol, vitamin D3, (VITAMIN D3 ORAL) Take by mouth. - POTASSIUM ORAL Take by mouth. - denosumab (PROLIA) 60 mg/mL as directed Subcutaneous - pantoprazole DR (PROTONIX) 40 mg tablet Take 40 mg by mouth once daily. - lisinopril (ZESTRIL, PRINIVIL) 10 mg tablet Take 10 mg by mouth once daily. - cyanocobalamin, Vitamin B12, 1,000 mcg/mL Soln Inject 1 mL intramuscularly as directed for 1 dose. - atorvastatin (LIPITOR) 10 mg tablet Take 10 mg by mouth once daily. - pregabalin (LYRICA) 75 mg capsule Take 75 mg by mouth once daily. - Vit 92-Lona-NZ-DSS ( AD) 90-1-50 mg Tab Take by mouth. Problem List As Of Date 02/14/2025 Noted Resolved Degenerative arthritis of right knee [M17.11] 03/10/2013 Vasculitis [I77.6] Pure hypercholesterolemia [E78.00] Other vitamin B12 deficiency anemia [D51.8] Osteoporosis [M81.0] Other and unspecified postsurgical nonabsorptio*07/21/2013 S/P knee replacement [Z96.659] 08/21/2013 Prescriptions ordered this encounter Disp Refills Start End OXYCODONE 5 MG TABLET 20 t* 0 02/14/2025 02/21/2025 Route: PO Sig: Take 1 tablet by mouth every 6 hours as needed for pain for up to 7 days. for pain. Medications Discontinued During This Encounter Prescriptions - oxyCODONE IR (ROXICODONE) 5 mg immediate release tablet (Discontinued) Take 1 tablet by mouth every 6 hours as needed for pain for up to 7 days. for pain. Encounter Status:Closed by GUILLAUME MERRILL on 03/14/25 [facility] XR WRIST 3V PA/LAT/OBL LTon 02-14-2025 XR WRIST 3V PA/LAT/OBL LT * * *Final Report* * * DATE OF EXAM: Feb 14 2025 2:45PM GAURI 5270 - XR WRIST 3V PA/LAT/OBL LT / PROCEDURE REASON: S52.532A-Closed Colles' fracture of left radius, initial encounter * * * * Physician Interpretation * * * * REASON FOR EXAM: Closed Colles' fracture of left radius, initial encounter TECHNIQUE: XR WRIST 3V PA/LAT/OBL LT COMPARISON: 02/03/2025.. FINDINGS: Interval placement of casting material decreases sensitivity for fine osseous abnormalities. Unchanged alignment of an incompletely healed distal radius fracture. No new osseous abnormalities within study limitations secondary to overlying casting material. Stable degenerative changes. IMPRESSION: Unchanged alignment of an incompletely healed distal radius fracture status post casting. Bow Maker Machine Tender: PSCB Transcribe Date/Time: Feb 19 2025 4:12P Dictated by : CARLOS SALAZAR MD This examination was interpreted and the report reviewed and electronically signed by: CARLOS SALAZAR MD on Feb 19 2025 4:14PM EST [id number] [facility] 02-09-2025 [facility] Office Visit (ORMDNA ) PORSHA HOUSE ([id number]) 1960 F [facility] Date Time Provider Department 02/09/25 10:00 AM [facility] During your visit today, we recorded the following information about you: Rico Wolf Cast Tech 02/09/2025 10:21 AM Signed PT ASSESSMENT - CASTING ROOM Porsha presents for Application of cast. Applied short cast: to Left arm Patient has been instructed in Care of cast.. Rico Wolf Cast Tari Referring Provider: LESLYE LEMUS [[id number]] Allergies As of Date: 02/09/2025 Noted Allergy Reaction IBUPROFEN 03/09/2013 2 - Rash 10 - Anaphylaxis NAPRELAN (NAPROXEN SODIUM) 03/09/2013 2 - Rash 10 - Anaphylaxis TAPE (ADHESIVE TAPE (ROSINS)) 05/11/2013 14 - Other: See Comments Comments: Skin is thin, tape peels skin off ZITHROMAX (AZITHROMYCIN) 03/09/2013 14 - Other: See Comments Comments: Skin on tongue peels off Date Reviewed: 02/09/2025 Reviewed by: Holly Niño MA - Fully Assessed Primary Visit Diagnosis:Closed Colles' fracture of left radius, initial encounter [S52.532A] Prescriptions as of 02/09/2025 - oxyCODONE IR (ROXICODONE) 5 mg immediate release tablet Take 1 tablet by mouth every 6 hours as needed for pain for up to 7 days. for pain. - cholecalciferol, vitamin D3, (VITAMIN D3 ORAL) Take by mouth. - POTASSIUM ORAL Take by mouth. - denosumab (PROLIA) 60 mg/mL as directed Subcutaneous - pantoprazole DR (PROTONIX) 40 mg tablet Take 40 mg by mouth once daily. - lisinopril (ZESTRIL, PRINIVIL) 10 mg tablet Take 10 mg by mouth once daily. - cyanocobalamin, Vitamin B12, 1,000 mcg/mL Soln Inject 1 mL intramuscularly as directed for 1 dose. - atorvastatin (LIPITOR) 10 mg tablet Take 10 mg by mouth once daily. - pregabalin (LYRICA) 75 mg capsule Take 75 mg by mouth once daily. - Vit 67-Qtpx-QB-DSS ( AD) 90-1-50 mg Tab Take by mouth. Problem List As Of Date 02/09/2025 Noted Resolved Degenerative arthritis of right knee [M17.11] 03/10/2013 Vasculitis [I77.6] Pure hypercholesterolemia [E78.00] Other vitamin B12 deficiency anemia [D51.8] Osteoporosis [M81.0] Other and unspecified postsurgical nonabsorptio*07/21/2013 S/P knee replacement [Z96.659] 08/21/2013 Encounter Status:Closed by RICO WOLF on 02/09/25 Normal [facility] CNOV Office Visit (ORMDNA ) HARSH,PORSHA D ([id number]) 1960 [facility] Date Time Provider Department 02/09/25 9:30 AM GUILLAUME MERRILL During your visit today, we recorded the following information about you: Guillaume Merrill MD 03/02/2025 10:25 PM Signed Subjective Porsha is a 64-year-old female with a history of vasculitis, presenting for right wrist pain and numbness following a recent fracture. Right Wrist Fracture: - Recent fracture of the right wrist. - Noted immediate swelling and a big bump at the fracture site. - Wears a wristband for support. - Reports increased numbness in the fingers, particularly towards the ends. - Numbness in the palm is more pronounced than usual. - Describes a burning sensation in the hand. - Difficulty with daily activities such as dressing and eating due to limited use of the right hand. - Denies significant bruising. - Able to drive using a spinner on the right side of the car. - Experienced a near-syncope episode last night, with sweating and feeling miserable; unsure if related to pain. Constitutional: (+) near syncope, (+) diaphoresis Musculoskeletal: (+) right wrist pain, (+) bilateral knee pain, (+) shoulder pain Neurological: (+) right hand numbness, (+) right hand tingling, (+) right hand burning sensation Objective There were no vitals taken for this visit. - Neurological: Decreased sensation in fingers and palm, more pronounced than usual. Labs: Tests: Imaging: - Wrist X-ray: Fracture identified with acceptable alignment and mild posterior tilt. Assessment/Plan 1. Closed Colles' fracture of left radius, initial encounter (S52.532A) - Fracture is well-aligned on imaging, though slightly dorsally angulated. - Due to patient's history of vasculitis, opted for conservative management with a short arm cast to allow finger mobility. - Scheduled follow-up appointment on the for repeat X-ray to assess alignment and healing progress. - Discussed potential for carpal tunnel syndrome due to fracture; if symptoms worsen or alignment deteriorates, surgical intervention including possible carpal tunnel release may be necessary. - Prescribed oxycodone 1 tablet every 6 hours as needed for pain, 7 days supply, sent to [facility] in [place]. - Advised patient to monitor for worsening numbness, tingling, or pain and to report any significant changes immediately. Attestation Recording using [place] software for draft documentation of the visit was discussed with the patient/authorized union contract representative; all questions welcomed and answered. Patient/authorized union contract representative agreed to proceed Referring Provider: LESLYE LEMUS [[id number]] Allergies As of Date: 02/09/2025 Noted Allergy Reaction IBUPROFEN 03/09/2013 2 - Rash 10 - Anaphylaxis NAPRELAN (NAPROXEN SODIUM) 03/09/2013 2 - Rash 10 - Anaphylaxis TAPE (ADHESIVE TAPE (ROSINS)) 05/11/2013 14 - Other: See Comments Comments: Skin is thin, tape peels skin off ZITHROMAX (AZITHROMYCIN) 03/09/2013 14 - Other: See Comments Comments: Skin on tongue peels off Date Reviewed: 02/09/2025 Reviewed by: Holly Niño MA - Fully Assessed Reason for Visit: Established Patient [175] Pain [78] Fracture [4131] Primary Visit Diagnosis:Closed Colles' fracture of left radius, initial encounter [S52.532A] Prescriptions as of 03/02/2025 - cholecalciferol, vitamin D3, (VITAMIN D3 ORAL) Take by mouth. - POTASSIUM ORAL Take by mouth. - denosumab (PROLIA) 60 mg/mL as directed Subcutaneous - pantoprazole DR (PROTONIX) 40 mg tablet Take 40 mg by mouth once daily. - lisinopril (ZESTRIL, PRINIVIL) 10 mg tablet Take 10 mg by mouth once daily. - cyanocobalamin, Vitamin B12, 1,000 mcg/mL Soln Inject 1 mL intramuscularly as directed for 1 dose. - atorvastatin (LIPITOR) 10 mg tablet Take 10 mg by mouth once daily. - pregabalin (LYRICA) 75 mg capsule Take 75 mg by mouth once daily. - Vit 52-Whso-ON-DSS ( AD) 90-1-50 mg Tab Take by mouth. Problem List As Of Date 02/09/2025 Noted Resolved Degenerative arthritis of right knee [M17.11] 03/10/2013 Vasculitis [I77.6] Pure hypercholesterolemia [E78.00] Other vitamin B12 deficiency anemia [D51.8] Osteoporosis [M81.0] Other and unspecified postsurgical nonabsorptio*07/21/2013 S/P knee replacement [Z96.659] 08/21/2013 Prescriptions ordered this encounter Disp Refills Start End OXYCODONE 5 MG TABLET 20 t* 0 02/09/2025 02/14/2025 Route: ORAL Sig: Take 1 tablet by mouth every 6 hours as needed for pain for up to 7 days. for pain. Disposition: Return in about 5 days (around 02/14/2025), or repeat wrist x rauys in cast. Follow-up and Disposition History for Encounter Date Provider Department Center 02/09/2025 [id number] MERRILL [facility] Letter Text Encounter (more content not included)... Normal [facility] ALLIED HEALTHon 02-03-2025 ALLIED HEALTH HNO ID: [id number] Author: STEPHANIA NOGUEIRA RT(All) Service: Radiology Author Type: Technologist Type: Allied Health Filed: 02/03/2025 17:39 Note Text: Radiology Service Progress Note PATIENT NAME: Porsha House DATE OF SERVICE: February 03, 2025 TIME: 5:39 PM PATIENT IDENTITY VERIFICATION COMPLETED USING TWO (2) IDENTIFIERS: Name and Date of confirmed by patient verbally. FALL SCREENING: Has the patient had 2 falls in the last year or 1 fall with injury or currently using an Ambulatory Assistive Device (Walker, Cane, Wheelchair, Crutches, etc.)? Emergency Room Patient: Screened in ED PATIENT GENDER DATA: Assigned female at . status: : No status: NO. PATIENT RELEVANT IMPLANT DATA REVIEWED: Not Applicable PATIENT PRESENTS WITH AN IMPLANTABLE OR ATTACHED BORING MACHINE FEEDER: No RADIOLOGY DEPARTMENT: General X-ray: Exam(s) Completed: Upper Extremity X-Ray(s): Wrist, left PERIPHERAL IV DATA: Not applicable SIGNED BY: RT [place](R) February 03, 2025 5:39 PM [facility]03[facility] PORSHA HOUSE ([id number]) 1960 F T Date Time Provider Department 02/03/25 ERICKA VILLELA During your visit today, we recorded the following information about you: Chung Pryor 02/03/2025 7:05 PM Signed Patient seen in [facility] on 02/03/2025 in regards to worsening 02/03/2025 Dr. Merrill is the provider national sales Would Dr. Merrill or another provider be willing to see patient in regards to their injury? Patient can be reached at [phone] Thank You! Gracia Hall, KRISTIN 02/05/2025 7:35 AM Signed 9:30 WednesdayFebruary 09 Isaias Gonzalez 02/05/2025 2:08 PM Signed Spoke with patient. Appointment scheduled. Allergies As of Date: 02/03/2025 Noted Allergy Reaction IBUPROFEN 03/09/2013 2 - Rash 10 - Anaphylaxis NAPRELAN (NAPROXEN SODIUM) 03/09/2013 2 - Rash 10 - Anaphylaxis TAPE (ADHESIVE TAPE (ROSINS)) 05/11/2013 14 - Other: See Comments Comments: Skin is thin, tape peels skin off ZITHROMAX (AZITHROMYCIN) 03/09/2013 14 - Other: See Comments Comments: Skin on tongue peels off Date Reviewed: 02/03/2025 Reviewed by: Vikas Thomas, KRISTIN - Fully Assessed Reason for Visit: Appointment [186] Prescriptions as of 02/05/2025 - HYDROcodone-acetaminoph en (NORCO) 5-325 mg per tablet Take 1 tablet by mouth every 8 hours as needed for pain for up to 3 days. - cholecalciferol, vitamin D3, (VITAMIN D3 ORAL) Take by mouth. - POTASSIUM ORAL Take by mouth. - denosumab (PROLIA) 60 mg/mL as directed Subcutaneous - pantoprazole DR (PROTONIX) 40 mg tablet Take 40 mg by mouth once daily. - lisinopril (ZESTRIL, PRINIVIL) 10 mg tablet Take 10 mg by mouth once daily. - cyanocobalamin, Vitamin B12, 1,000 mcg/mL Soln Inject 1 mL intramuscularly as directed for 1 dose. - atorvastatin (LIPITOR) 10 mg tablet Take 10 mg by mouth once daily. - pregabalin (LYRICA) 75 mg capsule Take 75 mg by mouth once daily. - Vit 54-Ivob-UR-DSS ( AD) 90-1-50 mg Tab Take by mouth. Problem List As Of Date 02/03/2025 Noted Resolved Degenerative arthritis of right knee [M17.11] 03/10/2013 Vasculitis [I77.6] Pure hypercholesterolemia [E78.00] Other vitamin B12 deficiency anemia [D51.8] Osteoporosis [M81.0] Other and unspecified postsurgical nonabsorptio*07/21/2013 S/P knee replacement [Z96.659] 08/21/2013 Encounter Status:Closed by ISAIAS GONZALEZ on 02/05/25 Normal [facility] ED PROV NOTEon 02-03-2025 ED PROV NOTE HNO ID: [id number] Author: LESLYE LEMUS PA-C Service: ? Author Type: Physician Turret Lathe Set Up Operator Type: ED Provider Notes Filed: 02/03/2025 20:46 Note Text: ED Provider Note Patient Name: Porsha House : 1960 SERVICE DATE: 02/03/25 History Patient presents with: Wrist/forearm Injury (Ed): PT presents to the ED from a store. PT sustained a mechanical call when she caught her foot on a display and fell. Pt complaint of LEFT wrist pain. Pt denies LOC or head injury. Pt is not on a blood thinner. Pt has no other complaints at this time. Porsha is here for evaluation of right wrist pain after mechanical fall prior to her arrival. She states that she lost her balance and tried to break her fall with her left arm and has a scrape on her left elbow and pain and ecchymoses to the left wrist. She denies hitting her head or losing consciousness. States that she thinks she may have broken her wrist. Denies numbness or tingling History provided by: Patient master barber used: No PAST MEDICAL HISTORY Diagnosis Date Arteritis, unspecified Fracture lt arm Osteoporosis Other vitamin B12 deficiency anemia Pure hypercholesterolemia Vasculitis right arm-chemotherapy 6 cycles PAST SURGICAL HISTORY Procedure Laterality Date ARTHRP KNE CONDYLEANDPLATU MEDIALANDLAT COMPARTMENTS 08/01/2013 Knee replacement, total right PAST SURGICAL HISTORY OF gall bladder PAST SURGICAL HISTORY OF bilateral heel spurs PAST SURGICAL HISTORY OF right inguinal hernia PAST SURGICAL HISTORY OF tendon transfer right arm PAST SURGICAL HISTORY OF bilateral benign breast lump PAST SURGICAL HISTORY OF gastric bypass PAST SURGICAL HISTORY OF kidney stones lithrotripsy No family history on file. Social History Tobacco Use Smoking status: Never Smokeless tobacco: Never Substance and Sexual Activity Alcohol use: No Drug use: No Sexual activity: Not on file ALLERGIES Allergen Reactions Ibuprofen Rash, Anaphylaxis Naprelan [Naproxen * Rash, Anaphylaxis Tape [Adhesive Tape* Other: See Comments Skin is thin, tape peels skin off Zithromax [Azithrom* Other: See Comments Skin on tongue peels off Review of Systems Constitutional: Negative. HENT: Negative. Respiratory: Negative. Cardiovascular: Negative. Gastrointestinal: Negative. Genitourinary: Negative. Musculoskeletal: Positive for joint swelling. Left wrist pain Skin: Positive for wound. Left elbow abrasion Neurological: Negative. Psychiatric/Behavioral: Negative. Physical Exam Vitals [02/03/25 1716] BP Pulse Temp Temp src Resp SpO2 Weight Height 144/90 85 36.7 ?C (98.1 ?F) Oral 18 98 % 81.1 kg (178 lb 12.7 oz) -- Physical Exam Vitals and nursing note reviewed. Constitutional: General: She is not in acute distress. Appearance: Normal appearance. She is not toxic-appearing. HENT: Head: Atraumatic. Nose: Nose normal. Mouth/Throat: Mouth: Mucous membranes are moist. Cardiovascular: Rate and Rhythm: Normal rate. Pulmonary: Effort: Pulmonary effort is normal. Musculoskeletal: Right wrist: Swelling, tenderness and bony tenderness present. No deformity or effusion. Decreased range of motion. Normal pulse. Skin: Capillary Refill: Capillary refill takes less than 2 seconds. Findings: Abrasion and ecchymosis present. Comments: Abrasion/skin tear to the left elbow with ecchymosis to the dorsum of the left hand Neurological: General: No focal deficit present. Mental Status: She is alert and oriented to person, place, and time. Psychiatric: Mood and Affect: Mood normal. Behavior: Behavior normal. Thought Content: Thought content normal. Judgment: Judgment normal. Diagnostic Testing ED Labs Ordered and Reviewed - No data to display Procedures ED Course / Clinical Impression Clinical Impressions as of 02/03/252043 Distal radius fracture, right Abrasion of left elbow, initial encounter MDM / Disposition / Plan Wound care and volar splint applied by medic and nursing staff. Wrist fracture will require follow-up by orthopedics and contact information for follow-up will be given. I will send a prescription for pain medicine to be taken as needed as she has an allergy to anti-inflammatories. She remains alert and oriented x 3 throughout her stay here with no other signs of trauma. She will return to the ER if symptoms change or worsen. Differential Diagnoses - Left wrist fracture is more likely for the following reason(s): consistent with imaging - Other orthopedic injury is less likely for the following reason(s): HANDP not suggestive Management Radiology Reports XR WRIST INJURY 4V PA/LAT/OBL/SCAPH LEFT Final Result IMPRESSION: Transverse fracture of the distal left radius Bow Maker Machine Tender: TATY Transcribe Date/Time: Feb 03 2025 6:26P Dictated by : SAIMA MOORE MD This examination was interpreted and the report reviewed and (more content not included)... Normal [facility] XR WRIST 4V PA/LAT/OBL/SCAPH LTon 02-03-2025 XR WRIST 4V PA/LAT/OBL/SCAPH LT * * *Final Report* * * DATE OF EXAM: Feb 03 2025 5:38PM MDX 5272 - XR WRIST 4V PA/LAT/OBL/SCAPH LT / PROCEDURE REASON: Trauma * * * * Physician Interpretation * * * * EXAMINATION: XR WRIST 4V PA/LAT/OBL/SCAPH LT CLINICAL HISTORY: Trauma Technique: XR WRIST 4V PA/LAT/OBL/SCAPH LT -- LEFT with 4 views on 4 images Comparison: None RESULT: Generalized osteopenia. Transverse fracture of the distal left radius with dorsal angulation of the distal fragment. No dislocation. First carpometacarpal degenerative disease. IMPRESSION: Transverse fracture of the distal left radius Bow Maker Machine Tender: TATY Transcribe Date/Time: Feb 03 2025 6:26P Dictated by : SAIMA MOORE MD This examination was interpreted and the report reviewed and electronically signed by: SAIMA MOORE MD on Feb 03 2025 6:28PM EST [id number] [facility] 01-31-2025 [facility] Office Visit (ORMDNA ) [facility] ([id number]) 1960 F [facility] Date Time Provider Department 01/31/25 8:30 AM GUILLAUME MERRILL During your visit today, we recorded the following information about you: Guillaume Merrill MD 01/31/2025 10:04 AM Signed Subjective Porsha is a 64-year-old female with a history of vasculitis, presenting for bilateral knee pain. Bilateral Knee Pain: - Received cortisone injections in left knees in April, providing relief for 4-5 months. - Experiences pain when initially standing up, improving after walking a few steps. - Pain is more pronounced in the morning and when getting up from a seated position at work. - Pain is primarily on the medial side of the knees, with the right knee exhibiting non-painful popping. - Denies feelings of instability or buckling in the knees. - Pain sometimes radiates down the legs. - Unable to take NSAIDs due to allergies; uses Tylenol with variable relief. - Pain limits activities such as walking dogs. - Right knee was replaced over 10 years ago; pain is present in both knees. - Experiences pain in the front of the knees when going up and down stairs, requiring one step at a time. - Sleeps on back due to vasculitis; experiences stiffness in the knees upon waking. Musculoskeletal: (+) bilateral knee pain (worse on left), (+) right knee popping without pain, (-) knee buckling, (+) pain on stairs, (+) pain on initial standing Neurological: (+) bilateral lower leg numbness Objective There were no vitals taken for this visit. - Musculoskeletal: - Left Knee: - Crepitus of the patellofemoral joint, mild effusion, decreased patellar excursion. - ROM: Full extension, flexion to 90 degrees. - Provocative test: Laxity to valgus stress, no anterior-posterior instability. - Right Knee: - Good stability to varus stress, normal patellar excursion. - ROM: Full extension, flexion to 90 degrees. - Provocative test: No anterior-posterior instability. - Hips: Passive ROM pain-free with no limitations. - Neurological: Dorsiflexion and plantar flexion 5/5 bilaterally. Sensory changes noted on anterior shins. Imaging (04/28/2024) X-ray of bilateral knees: - Left knee: Full thickness articular wear in the medial compartment, bone on bone, patellofemoral joint arthritis - Right knee: Arthroplasty components well aligned, intact, no patellar resurfacing Large Joint Arthro/Inj: L knee joint 01/31/2025 10:03 AM The procedure site was prepped in the usual sterile fashion. Site: L knee joint Medications: 12 mg betamethasone acetate-betamethasone sodium phosphate 6 mg/mL Anesthetics: 4 mL lidocaine (PF) 10 mg/mL (1 %) Outcome: Tolerated well, no immediate complications Post-injection instructions were reviewed with the patient and the patient voiced understanding of these instructions. Informed Consent Consent Obtained: Verbal [place] Protocol A moment to CARE was completed. SIGN IN Personnel directly involved with the procedure wore the appropriate PPE. Special Equipment: N/A Patient/Surrogate Stated/Verified: Patient name, Date of , Relevant allergies and Intended procedure TIME OUT Relevant labs, photos, and/or imaging studies have been reviewed. Consent documented and matches the intended procedure. Correct side/site marked and visible. Medications required for procedure verified. No fire risk assessment and interventions applicable. No implant(s) inserted. SIGN OUT No specimen collected. Assesment Plan: 1. Primary osteoarthritis of left knee (M17.12) - Severe arthritis with full thickness articular wear in the medial compartment; bone on bone. - Discussed treatment options including cortisone injection and potential future knee replacement. - Administered cortisone injection today. - Continue independent exercises. - Follow-up in 6 months to reassess; potential for knee replacement in winter if symptoms persist. 2. Chronic pain of right knee (M25.561) 3. Presence of right artificial knee joint (Z96.651) - Right knee arthroplasty components well aligned and intact; no patellar resurfacing performed during initial replacement in 2012. - Pain likely due to patellofemoral joint arthritis. - Discussed possibility of patellar resurfacing if pain becomes intolerable. - Monitor symptoms; no immediate intervention required. 4. Vasculitis (I77.6) - Sensory changes and numbness in anterior shins. - No new treatment changes; continue current management. Attestation Recording using [place] software for draft documentation of the visit was discussed with the patient/authorized union contract representative; all questions welcomed and answered. Patient/authorized union contract representative agreed to proceed Referring Provider: SELF [200] Allergies As of Date: 01/31/2025 Noted Allergy Reaction IBUPROFEN 03/09/2013 (more content not included)... Normal [facility] Large Joint Arthro/Inj: L kn ee jointon 01-31-2025 Guillaume Merrill MD 01/31/2025 10:04 AM Large Joint Arthro/Inj: L knee joint 01/31/2025 10:03 AM The procedure site was prepped in the usual sterile fashion. Site: L knee joint Medications: 12 mg betamethasone acetate-betamethasone sodium phosphate 6 mg/mL Anesthetics: 4 mL lidocaine (PF) 10 mg/mL (1 %) Outcome: Tolerated well, no immediate complications Post-injection instructions were reviewed with the patient and the patient voiced understanding of these instructions. Informed Consent Consent Obtained: Verbal [place] Protocol A moment to CARE was completed. SIGN IN Personnel directly involved with the procedure wore the appropriate PPE. Special Equipment: N/A Patient/Surrogate Stated/Verified: Patient name, Date of , Relevant allergies and Intended procedure TIME OUT Relevant labs, photos, and/or imaging studies have been reviewed. Consent documented and matches the intended procedure. Correct side/site marked and visible. Medications required for procedure verified. No fire risk assessment and interventions applicable. No implant(s) inserted. SIGN OUT No specimen collected. [facility] BI MAMMO BILATERAL SCREENING TOMOSYNTHESISon 01-10-2025 BI MAMMO BILATERAL SCREENING TOMOSYNTHESIS Interpreted By: Sofie Mccarthy, STUDY: BI MAMMO BILATERAL SCREENING TOMOSYNTHESIS; 01/10/2025 10:42 am ACCESSION NUMBER(S): [id number] ORDERING CLINICIAN: ERICKA VILLELA INDICATION: Screening. Bilateral benign breast biopsies. ,Z12.31 Encounter for screening mammogram for malignant neoplasm of breast COMPARISON: 01/06/2024 and 07/25/2020. FINDINGS: 2D and tomosynthesis images were reviewed at 1 mm slice thickness. Density: There are scattered areas of fibroglandular density. No suspicious masses or calcifications are identified. IMPRESSION: No mammographic evidence of malignancy. BI-RADS CATEGORY: BI-RADS Category: 1 Negative. Recommendation: Annual Screening. Recommended Date: 1 Year. Laterality: Bilateral. For any future breast imaging appointments, please call [phone] MACRO: None Signed by: Sofie Mccarthy 01/12/2025 3:21 PM Dictation workstation: [id number] [facility] DRUG MONITOR, PANEL 1, W/CON F, URINEon 12-22-2024 Amphetamines Negative Normal <500 [facility] Comment on above: Performed By: #### 3 8522 #### [facility] [place] [address] [address] , [address] [place], [place] [id number] Laster Hand: Jin Fields MD Barbiturates Negative Normal <300 [facility] Comment on above: Performed By: #### 3 9422 #### [facility] [address] , [address] [place] [id number] Laster Hand: Jin Fields MD Benzodiazepines Negative Normal <100 [facility] Comment on above: Performed By: #### 3 9422 #### [facility] [address] , [address] [place] [phone] Laster Hand: Jin Fields MD Cocaine Metabolite Negative Normal <150 [facility] Comment on above: Performed By: #### 3 9422 #### [facility] of [place] [address] [address] , [address] [place] [address] Laster Hand: Jin Fields MD Creatinine (U) [Mass/Vol] 75.2 mg/dL Normal > or = 20.0 [facility] Comment on above: Performed By: #### 3 9422 #### [facility] of [place] [address] Laster Hand: Jin Fields MD Marijuana Metabolite Negative Normal <20 [facility] Comment on above: Performed By: #### 3 9422 #### [facility] of [address], [address] [place] [address] Laster Hand: Jin Fields MD Methadone Metabolite Negative Normal <100 [facility] Comment on above: Performed By: #### 3 9422 #### [facility] of [place] [address] Laster Hand: Jin Fields MD Opiates Negative Normal <100 [facility] Comment on above: Performed By: #### 3 9422 #### [facility] of [place] [address] Laster Hand: Jin Fields MD Oxidant Negative Normal <200 [facility] Comment on above: Performed By: #### 3 9422 #### [facility] of [place] [address] Laster Hand: Jin Fields MD Oxycodone Negative Normal <100 [facility] Comment on above: Performed By: #### 3 9422 #### [facility] of [place] [address] [address] [place] [address] Laster Hand: Jin Fields MD pH (U) 6.5 [pH] Normal 4.5-9.0 [facility] Comment on above: Performed By: #### 3 9422 #### [facility] of [place] [address] Laster Hand: Jin Fields MD Phencyclidine Negative Normal <25 [facility] Comment on above: Performed By: #### 3 9422 #### [facility] [address], [address] [place] [address] Laster Hand: Jin Fields MD DRUG MONITORING TEMPLATEon 0 12-22-2024 Notes and Comments Normal [facility] Comment on above: Result Comment: This drug testing is for medical treatment only. Analysis was performed as non-forensic testing and these results should be used only by healthcare providers to render diagnosis or treatment, or to monitor progress of medical conditions. Healthcare Providers needing Interpretation assistance, please contact us at [phone] ( ) M-F, 8am to 10pm EST Performed By: #### 3 9422 #### [facility] [address], [address] [place], [place] [address] Laster Hand: Jin Fields MD XR CERVICAL SPINE 2-3 VIEWSo n 12-19-2024 XR CERVICAL SPINE 2-3 VIEWS Interpreted By: Cale Thornton, STUDY: XR CERVICAL SPINE 2-3 VIEWS; ; 12/19/2024 3:54 pm INDICATION: Signs/Symptoms:Patient fell 2 weeks ago and has concerns about neck. ,M54.2 Cervicalgia COMPARISON: 10/25/2024 ACCESSION NUMBER(S): [id number] ORDERING CLINICIAN: MARILEE WISEMAN FINDINGS: C-spine, two views Anterior spinal fusion at C5-C6. There is no fracture. There is no spondylolisthesis. There is no disc space narrowing or osteophytosis. The prevertebral soft tissues are within normal limits. IMPRESSION: C5-C6 anterior fusion without acute abnormality MACRO: None Signed by: Cale Thornton 12/20/2024 5:45 PM Dictation workstation: [id number] [facility] XR CERVICAL SPINE COMPLETE 4 -5 VIEWSon 10-25-2024 XR CERVICAL SPINE COMPLETE 4-5 VIEWS Interpreted By: Zachary Lopez, STUDY: XR CERVICAL SPINE COMPLETE 4-5 VIEWS; ; 10/25/2024 10:45 am INDICATION: Signs/Symptoms:fall and neck pain. ,M62.838 Other muscle spasm COMPARISON: 05/23/2018 ACCESSION NUMBER(S): [id number] ORDERING CLINICIAN: ERICKA VILLELA FINDINGS: Five views of the cervical spine. Patient is status post anterior cervical discectomy and fusion at C5-C6. No evidence of hardware complication. No acute fractures or focal subluxations are seen. There is mild multilevel spondylosis. There is resulting mild neural femoral narrowing on the left at C3-C4. limited open mouth views. IMPRESSION: Mild spondylosis with mild left-sided C3-C4 neural foraminal narrowing. No evidence of fracture within the above-mentioned limitation of limited open-mouth views. Note: Plain film radiographs offer limited sensitivity in the detection of fracture in the setting of acute cervical spine trauma. If the patient meets high risk criteria for cervical spine injury, then CT of the cervical spine is recommended for further evaluation. MACRO: None Signed by: Zachary Lopez 10/28/2024 2:50 PM Dictation workstation: [id number] Normal [facility] Calcidiolon 09-20-2024 25-hydroxyvitamin D3 [Mass/Vol] 53 ng/mL Normal 30-100 [facility] Comment on above: Order Comment: Defic iency: < 20 ng/ml Insufficiency: 20-29 ng/ml Sufficiency: 30-100 ng/ml This assay accurately quantifies the sum of Vitamin D3, 25-Hydroxy and Vitamin D2,25-Hydroxy. Performed By: #### 1 989-3 #### LAYA Gallego ([id number]) [facility] ([facility]) [address] [place] [address] Comprehensive metabolic 2000 panelon 09-20-2024 Albumin BCP dye [Mass/Vol] 3.9 g/dL Normal 3.4-5.0 [facility] Comment on above: Performed By: #### 2 4323-8 #### LAYA Gallego ([id number]) [facility] ([facility]) [address] [place] [address] ALP [Catalytic activity/Vol] 98 U/L Normal 33-136 [facility] Comment on above: Performed By: #### 2 4323-8 #### LAYA Gallego ([id number]) [facility] ([facility]) [address] [place] [address] ALT With P-5'-P [Catalytic activity/Vol] 37 U/L Normal 7-45 [facility] Comment on above: Result Comment: Kenzie ents treated with Sulfasalazine may generate falsely decreased results for ALT. Performed By: #### 2 4323-8 #### LAYA QUIROZTZER L ([id number]) [facility] ([facility]) [address] [place] [address] Anion gap [Moles/Vol] 12 mmol/L Normal 10-20 [facility] Comment on above: Performed By: #### 2 4323-8 #### LAYA QUIROZTZER L ([id number]) [facility] ([facility]) [address] [place] [address] AST With P-5'-P [Catalytic activity/Vol] 35 U/L Normal 9-39 [facility] Comment on above: Result Comment: MILD HEMOLYSIS DETECTED. The result may be falsely elevated due to hemolysis or other interferents. Clinical correlation is recommended. Repeat testing may be considered. Performed By: #### 2 4323-8 #### LAYA MATIAS L ([id number]) [facility] ([facility]) [address] [place] [address] Bilirubin [Mass/Vol] 0.9 mg/dL Normal 0.0-1.2 [facility] Comment on above: Performed By: #### 2 4323-8 #### LAYA GARCIAMOTZER L ([id number]) [facility] ([facility]) [address] [place] [address] Calcium [Mass/Vol] 9.8 mg/dL Normal 8.6-10.6 [facility] Comment on above: Performed By: #### 2 4323-8 #### LAYA GARCIAMOTZER L ([id number]) [facility] ([facility]) [address] [place] [address] Chloride [Moles/Vol] 107 mmol/L Normal 98-107 [facility] Comment on above: Performed By: #### 2 4323-8 #### LAYA SCHMOTZER L ([id number]) [facility] ([facility]) [address] [place] [address] CO2 [Moles/Vol] 28 mmol/L Normal 21-32 [facility] Comment on above: Performed By: #### 2 4323-8 #### LAYA Gallego ([id number]) [facility] ([facility]) [address] [place] [address] Creatinine [Mass/Vol] 0.87 mg/dL Normal 0.50-1.05 [facility] Comment on above: Performed By: #### 2 4323-8 #### LAYA Gallego ([id number]) [facility] ([facility]) [address] [place] [address] Glomerular filtration rate/1.73 sq M.predicted 74 mL/min/1.73m*2 Normal >60 [facility] Comment on above: Result Comment: Calc ulations of estimated GFR are performed using the 2020 CKD-EPI Study Refit equation without the race variable for the IDMS-Traceable creatinine methods. https://jasn.asnjournals.org/content/early//ASN.257304 2096 Performed By: #### 2 4323-8 #### LAYA Gallego ([id number]) [facility] ([facility]) [address] [place] [address] Glucose [Mass/Vol] 124 mg/dL High 74-99 [facility] Comment on above: Performed By: #### 2 4323-8 #### LAYA Gallego ([id number]) [facility] ([facility]) [address] [place] [address] Potassium [Moles/Vol] 4.6 mmol/L Normal 3.5-5.3 [facility] Comment on above: Result Comment: MILD HEMOLYSIS DETECTED. The result may be falsely elevated due to hemolysis or other interferents. Clinical correlation is recommended. Repeat testing may be considered. Performed By: #### 2 4323-8 #### LAYA Gallego ([id number]) [facility] ([facility]) [address] [place] [address] Protein [Mass/Vol] 6.4 g/dL Normal 6.4-8.2 [facility] Comment on above: Performed By: #### 2 4323-8 #### LAYA Gallego ([id number]) [facility] ([facility]) [address] [place] [address] Sodium [Moles/Vol] 142 mmol/L Normal 136-145 [facility] Comment on above: Performed By: #### 2 4323-8 #### LAYA Gallego ([id number]) [facility] ([facility]) [address] [place] [address] Urea nitrogen [Mass/Vol] 22 mg/dL Normal 6-23 [facility] Comment on above: Performed By: #### 2 4323-8 #### LAYA Gallego ([id number]) [facility] ([facility]) [address] [place] [address] Parathyrin.intacton 09-20-20 24 Parathyrin.intact [Mass/Vol] 121.5 pg/mL High 18.5-88.0 [facility] Comment on above: Performed By: #### 2 731-8 #### LAYA Gallego ([id number]) [facility] ([facility]) [address] [place] [address] No Panel Informationon 09-15 [facility] Work Phone: POCT Covid-19 Rapid Antigeno n 09-15-2024 SARS-CoV-2 (COVID-19) Ag IA.rapid Ql (Resp) Positive Abnormal Presumptive negative test for SARS-CoV-2 (no antigen detected) [facility] Work Phone: POCT Influenza A/B manually resultedon 09-15-2024 POC Rapid Influenza A Negative Negative [facility] Work Phone: POC Rapid Influenza B Negative Negative [facility] Work Phone: SARS-CoV-2 (COVID-19) Ag IA. rapid Ql (Resp)on 09-15-2024 Interpretation and review of laboratory results Abnormal [facility] Work Phone: CBC panel Auto (Bld)on 08-24 Erythrocyte distribution width (RBC) [Ratio] 12.6 % Normal 11.5-14.5 [facility] Comment on above: Performed By: #### 5 8410-2 #### LAYA Gallego ([id number]) [facility] ([facility]) [address] [place] [address] Hematocrit (Bld) [Volume fraction] 43.4 % Normal 36.0-46.0 [facility] Comment on above: Performed By: #### 5 8410-2 #### LAYA Gallego ([id number]) [facility] ([facility]) [address] [place] [address] Hemoglobin (Bld) [Mass/Vol] 14.1 g/dL Normal 12.0-16.0 [facility] Comment on above: Performed By: #### 5 8410-2 #### LAYA Gallego ([id number]) [facility] ([facility]) [address] [place] [address]99 MCH (RBC) [Entitic mass] 31.5 pg Normal 26.0-34.0 [facility] Comment on above: Performed By: #### 5 8410-2 #### LAYA Gallego ([id number]) [facility] ([facility]) [address] [place] [address]759 MCHC (RBC) [Mass/Vol] 32.5 g/dL Normal 32.0-36.0 [facility] Comment on above: Performed By: #### 5 8410-2 #### LAYA Gallego ([id number]) [facility] ([facility]) [address] [place] [address]18 MCV (RBC) [Entitic vol] 97 fL Normal 80-100 [facility] Comment on above: Performed By: #### 5 8410-2 #### LAYA Gallego ([id number]) [facility] ([facility]) [address] [place] [address] Nucleated RBC/100 WBC (Bld) [Ratio] 0.0 /100 WBCs Normal 0.0-0.0 [facility] Comment on above: Performed By: #### 5 8410-2 #### LAYA Gallego ([id number]) [facility] ([facility]) [address] [place] [address] Platelets (Bld) [#/Vol] 161 x10*3/uL Normal 150-450 [facility] Comment on above: Performed By: #### 5 8410-2 #### LAYA Gallego ([id number]) [facility] ([facility]) [address] [place] [address] RBC (Bld) [#/Vol] 4.48 x10*6/uL Normal 4.00-5.20 [facility] Comment on above: Performed By: #### 5 8410-2 #### LAYA Gallego ([id number]) [facility] ([facility]) [address] [place] [address]343 WBC (Bld) [#/Vol] 5.3 x10*3/uL Normal 4.4-11.3 [facility] Comment on above: Performed By: #### 5 8410-2 #### LAYA Gallego ([id number]) [facility] ([facility]) [address] [place] [address] Comprehensive metabolic 2000 panelon 08-24-2024 Albumin BCP dye [Mass/Vol] 4.0 g/dL Normal 3.4-5.0 [facility] Comment on above: Performed By: #### 2 4323-8 #### LAYA Gallego ([id number]) [facility] ([facility]) [address] [place] [address]844 ALP [Catalytic activity/Vol] 93 U/L Normal 33-136 [facility] Comment on above: Performed By: #### 2 4323-8 #### LAYA Gallego ([id number]) [facility] ([facility]) [address] [place] [address] ALT With P-5'-P [Catalytic activity/Vol] 28 U/L Normal 7-45 [facility] Comment on above: Result Comment: Kenzie ents treated with Sulfasalazine may generate falsely decreased results for ALT. Performed By: #### 2 4323-8 #### LAYA Gallego ([id number]) [facility] ([facility]) [address] [place] [address] Anion gap [Moles/Vol] 12 mmol/L Normal 10-20 [facility] Comment on above: Performed By: #### 2 4323-8 #### LAYA Gallego ([id number]) [facility] ([facility]) [address] [place] [address] AST With P-5'-P [Catalytic activity/Vol] 31 U/L Normal 9-39 [facility] Comment on above: Performed By: #### 2 4323-8 #### ALYA MATIAS L ([id number]) [facility] ([facility]) [address] [place] [address] Bilirubin [Mass/Vol] 1.0 mg/dL Normal 0.0-1.2 [facility] Comment on above: Performed By: #### 2 4323-8 #### LAYA MATIAS L ([id number]) [facility] ([facility]) [address] [place] [address] Calcium [Mass/Vol] 9.8 mg/dL Normal 8.6-10.6 [facility] Comment on above: Performed By: #### 2 4323-8 #### LAYA MATIAS L ([id number]) [facility] ([facility]) [address] [place] [address] Chloride [Moles/Vol] 107 mmol/L Normal 98-107 [facility] Comment on above: Performed By: #### 2 4323-8 #### LAYA MATIAS L ([id number]) [facility] ([facility]) [address] [place] [address] CO2 [Moles/Vol] 28 mmol/L Normal 21-32 [facility] Comment on above: Performed By: #### 2 4323-8 #### LAYA Gallego ([id number]) [facility] ([facility]) [address] [place] [address] 27050 Creatinine [Mass/Vol] 0.90 mg/dL Normal 0.50-1.05 [facility] Comment on above: Performed By: #### 2 4323-8 #### LAYA Gallego ([id number]) [facility] ([facility]) [address] [place] [address] 40223 Glomerular filtration rate/1.73 sq M.predicted 71 mL/min/1.73m*2 Normal >60 [facility] Comment on above: Result Comment: Calc ulations of estimated GFR are performed using the 2020 CKD-EPI Study Refit equation without the race variable for the IDMS-Traceable creatinine methods. https://jasn.asnjournals.org/content/early//ASN.256859 8870 Performed By: #### 2 4323-8 #### LAYA Gallego ([id number]) [facility] ([facility]) [address] [place] [address] 84361 Glucose [Mass/Vol] 100 mg/dL High 74-99 [facility] Comment on above: Performed By: #### 2 4323-8 #### LAYA Gallego ([id number]) [facility] ([facility]) [address] [place] [address] 55286 Potassium [Moles/Vol] 4.7 mmol/L Normal 3.5-5.3 [facility] Comment on above: Performed By: #### 2 4323-8 #### LAYA Gallego ([id number]) [facility] ([facility]) [address] [place] [address] 23625 Protein [Mass/Vol] 6.3 g/dL Low 6.4-8.2 [facility] Comment on above: Performed By: #### 2 4323-8 #### LAYA Gallego ([id number]) [facility] ([facility]) [address] [place] [address] Sodium [Moles/Vol] 142 mmol/L Normal 136-145 [facility] Comment on above: Performed By: #### 2 4323-8 #### LAYA Gallego ([id number]) [facility] ([facility]) [address] [place] [address] Urea nitrogen [Mass/Vol] 15 mg/dL Normal 6-23 [facility] Comment on above: Performed By: #### 2 4323-8 #### LAYA Gallego ([id number]) [facility] ([facility]) [address] [place] [address] 34209 Basic metabolic 2000 panelon 07-27-2024 Anion gap [Moles/Vol] 9 mmol/L Low 10-20 [facility] Comment on above: Performed By: #### 2 4321-2 #### LAYA Gallego ([id number]) [facility] ([facility]) [address] [place] [address] 97045 Calcium [Mass/Vol] 9.2 mg/dL Normal 8.6-10.6 [facility] Comment on above: Performed By: #### 2 4321-2 #### LAYA Gallego ([id number]) [facility] ([facility]) [address] [place] [address] 87923 Chloride [Moles/Vol] 108 mmol/L High 98-107 [facility] Comment on above: Performed By: #### 2 4321-2 #### LAYA MATIAS L ([id number]) [facility] ([facility]) [address] [place] [address] 02541 CO2 [Moles/Vol] 28 mmol/L Normal 21-32 [facility] Comment on above: Performed By: #### 2 4321-2 #### LAYA Gallego ([id number]) [facility] ([facility]) [address] [place] [address] 50598 Creatinine [Mass/Vol] 0.82 mg/dL Normal 0.50-1.05 [facility] Comment on above: Performed By: #### 2 4321-2 #### LAYA Gallego ([id number]) [facility] ([facility]) [address] [place] [address] 63343 Glomerular filtration rate/1.73 sq M.predicted 79 mL/min/1.73m*2 Normal >60 [facility] Comment on above: Result Comment: Calc ulations of estimated GFR are performed using the 2020 CKD-EPI Study Refit equation without the race variable for the IDMS-Traceable creatinine methods. https://jasn.asnjournals.org/content/early//ASN.088555 1642 Performed By: #### 2 4321-2 #### LAYA Gallego ([id number]) [facility] ([facility]) [address] [place] [address] 20070 Glucose [Mass/Vol] 106 mg/dL High 74-99 [facility] Comment on above: Performed By: #### 2 4321-2 #### LAYA Gallego ([id number]) [facility] ([facility]) [address] [place] [address] 69546 Potassium [Moles/Vol] 4.3 mmol/L Normal 3.5-5.3 [facility] Comment on above: Performed By: #### 2 4321-2 #### LAYA MATIAS L ([id number]) [facility] ([facility]) [address] [place] [address] 56986 Sodium [Moles/Vol] 141 mmol/L Normal 136-145 [facility] Comment on above: Performed By: #### 2 4321-2 #### LAYA MATIAS L ([id number]) [facility] ([facility]) [address] [place] [address] 27316 Urea nitrogen [Mass/Vol] 15 mg/dL Normal 6-23 [facility] Comment on above: Performed By: #### 2 4321-2 #### LAYA Gallego ([id number]) [facility] ([facility]) [address] [place] [address] 50877 Calcidiolon 07-27-2024 25-hydroxyvitamin D3 [Mass/Vol] 41 ng/mL Normal 30-100 [facility] Comment on above: Order Comment: Defic iency: < 20 ng/ml Insufficiency: 20-29 ng/ml Sufficiency: 30-100 ng/ml This assay accurately quantifies the sum of Vitamin D3, 25-Hydroxy and Vitamin D2,25-Hydroxy. Performed By: #### 1 989-3 #### LAYA Gallego ([id number]) [facility] ([facility]) [address] [place] [address] 40250 Collagen crosslinked C-telop eptideon 07-27-2024 Collagen crosslinked C-telopeptide [Mass/Vol] 412 pg/mL Normal [facility] Comment on above: Result Comment: Premenopausal Females: 136-689 pg/mL Postmenopausal Females: 177-1015 pg/mL REFERENCE INTERVAL: C-Telopeptide, Xtra-Nyxlj-Mxerhf, Serum Access complete set of age- and/or gender-specific reference intervals for this test in the [facility] Test Directory ([employer]). Performed By: [employer] [address] [place] [address] 17500 Specialist Icu: Leonardo Roberts MD, PhD CLIA Number: [id number]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 suspicion of dilution. Samples with results below this range will automatically reflex to specific gravity testing to verify specimen integrity. Performed By: #### D SBOP #### [facility] [address] [place] [address] DRUG SCREEN COMMENT. SEE BELOW Normal [facility] Comment on above: Result Comment: Drug screen results are presumptive and should not be used to assess compliance with prescribed medication. Definitive confirmatory drug testing has been added to this sample for any positive screen result and will be reported separately. . Toxicology screening results are reported qualitatively. The concentration must be greater than or equal to the cutoff to be reported as positive. The concentration at which the screening test can detect an individual drug or metabolite varies. The absence of expected drug(s) and/or drug metabolite(s) may indicate non-compliance, inappropriate timing of specimen collection relative to drug administration, poor drug absorption, diluted/adulterated urine, or limitations of testing. For medical purposes only; not valid for forensic use. . Interpretive questions should be directed to the laboratory medical directors. Performed By: #### D SBOP #### [facility] [address] [place] [address] PCP SCREEN,U Negative Normal NEGATIVE [facility] Comment on above: Result Comment: CUTO FF LEVEL: 25 NG/ML Cross-reactivity has been reported with dextromethorphan. Performed By: #### D SBOP #### [facility] [address] [place] [address] Laboratory - Chemistry and C hemistry - challengeon 06-16-2023 Creatinine (Body fld) [Mass/Vol] 84.6 mg/dL [facility] [address] Work Phone: Comment on above: A urine creatinine r esult >= 20 mg/dL is considered valid without suspicion of dilution. Samples with results below this range will automatically reflex to specific gravity testing to verify specimen integrity. Laboratory - Drug toxicology on 06-16-2023 1-Hydroxymidazolam Confirm (U) [Mass/Vol] <25 Cutoff <25 [facility] [address] Work Phone: 0-Qgukbzmsdj-4,5-Dime thyl-3,3-Diphenylpyrr olidine (EDDP) Confirm (U) [Mass/Vol] <25 Cutoff <25 [facility] [address] Work Phone: Comment on above: The performance travis acteristics of the Methadone Confirmation, Urine has been validated by the individual laboratory site where testing is performed. It has not been cleared or approved by the FDA. However the FDA has determined that such clearance or approval is not necessary. Our Laboratory is certified under the Clinical Laboratory Improvement Amendments of 1988 (CLIA) as qualified to perform high complexity clinical laboratory testing. 6-Monoacetylmorphine (6-WAQAR) Confirm (U) [Mass/Vol] <25 Cutoff <25 [facility] [address] Work Phone: 7-Aminoclonazepam Confirm (U) [Mass/Vol] <25 Cutoff <25 [facility] [address] Work Phone: [phone] Alpha hydroxyalprazolam Confirm (U) [Mass/Vol] <25 Cutoff <25 [facility] [address] Work Phone: ALPRAZolam Confirm (U) [Mass/Vol] <25 Cutoff <25 [facility] [address] Work Phone: Amphetamines Screen Ql (U) Negative NEGATIVE [facility] [address] Work Phone: [phone] Comment on above: CUTOFF LEVEL: 500 NG /ML Cross-reactivity has been reported with high concentrations of the following drugs: buproprion, chloroquine, chlorpromazine, ephedrine, mephentermine, fenfluramine, phentermine, phenylpropanolamine, pseudoephedrine, and propranolol. Barbiturates Screen Ql (U) Negative NEGATIVE [facility] [address] Work Phone: [phone] Comment on above: CUTOFF LEVEL: 200 NG /ML Benzoylecgonine Screen Ql (U) Negative NEGATIVE [facility] [address] Work Phone: [phone] Comment on above: CUTOFF LEVEL: 150 NG /ML Cannabinoids Screen Ql (U) Negative NEGATIVE [facility] [address] Work Phone: Comment on above: CUTOFF LEVEL: 50 NG/ ML chlordiazePOXIDE Confirm (U) [Mass/Vol] <25 Cutoff <25 [facility] [address] Work Phone: clonazePAM Confirm (U) [Mass/Vol] <25 Cutoff <25 [facility] [address] Work Phone: Codeine Confirm (U) [Mass/Vol] <50 Cutoff <50 [facility] [address] Work Phone: diazePAM Confirm (U) [Mass/Vol] <25 Cutoff <25 [facility] [address] Work Phone: fentaNYL Confirm (U) [Mass/Vol] <2.5 Cutoff<2.5 [facility] [address] Work Phone: HYDROcodone Confirm (U) [Mass/Vol] <25 Cutoff <25 [facility] [address] Work Phone: HYDROmorphone Confirm (U) [Mass/Vol] <25 Cutoff <25 [facility] [address] Work Phone: LORazepam Confirm (U) [Mass/Vol] <25 Cutoff <25 [facility] [address] Work Phone: Methadone Confirm (U) [Mass/Vol] <25 Cutoff <25 [facility] [address] Work Phone: Midazolam Confirm (U) [Mass/Vol] <25 Cutoff <25 [facility] [address] Work Phone: Morphine Confirm (U) [Mass/Vol] <50 Cutoff <50 [facility] [address] Work Phone: Nordiazepam Confirm (U) [Mass/Vol] <25 Cutoff <25 [facility] [address] Work Phone: Norfentanyl Confirm (U) [Mass/Vol] <2.5 Cutoff<2.5 [facility] [address] Work Phone: Comment on above: The performance travis acteristics of the Fentanyl Confirmation, Urine has been validated by the individual laboratory site where testing is performed. It has not been cleared or approved by the FDA. However the FDA has determined that such clearance or approval is not necessary. Our Laboratory is certified under the Clinical Laboratory Improvement Amendments of 1988 (CLIA) as qualified to perform high complexity clinical laboratory testing. Norhydrocodone Confirm (U) [Mass/Vol] <25 Cutoff <25 [facility] [address] Work Phone: Noroxycodone Confirm (U) [Mass/Vol] <25 Cutoff <25 [facility] [address] Work Phone: Nortramadol (U) [Mass/Vol] <50 Cutoff <50 [facility] [address] Work Phone: Comment on above: The performance travis acteristics of the Tramadol Confirmation, Urine has been validated by the individual laboratory site where testing is performed. It has not been cleared or approved by the FDA. However the FDA has determined that such clearance or approval is not necessary. Our Laboratory is certified under the Clinical Laboratory Improvement Amendments of 1988 (CLIA) as qualified to perform high complexity clinical laboratory testing. Oxazepam Confirm (U) [Mass/Vol] <25 Cutoff <25 [facility] [address] Work Phone: oxyCODONE Confirm (U) [Mass/Vol] <25 Cutoff <25 [facility] [address] Work Phone: oxyMORphone Confirm (U) [Mass/Vol] <25 Cutoff <25 [facility] [address] Work Phone: Comment on above: The performance travis acteristics of the Opiate Confirmation, Urine has been validated by the individual laboratory site where testing is performed. It has not been cleared or approved by the FDA. However the FDA has determined that such clearance or approval is not necessary. Our Laboratory is certified under the Clinical Laboratory Improvement Amendments of 1988 (CLIA) as qualified to perform high complexity clinical laboratory testing. Phencyclidine Ql (U) Negative NEGATIVE [facility] [place] [address] Work Phone: Comment on above: CUTOFF LEVEL: 25 NG/ ML Cross-reactivity has been reported with dextromethorphan. Temazepam Confirm (U) [Mass/Vol] <25 Cutoff <25 [facility] [address] Work Phone: Comment on above: The performance travis acteristics of the Benzodiazepine Confirmation, Urine has been validated by the individual laboratory site where testing is performed. It has not been cleared or approved by the FDA. However the FDA has determined that such clearance or approval is not necessary. Our Laboratory is certified under the Clinical Laboratory Improvement Amendments of 1988 (CLIA) as qualified to perform high complexity clinical laboratory testing. traMADol Confirm (U) [Mass/Vol] <50 Cutoff <50 [facility] [address] Work Phone: Zolpidem (U) [Mass/Vol] <25 Cutoff <25 [facility] [address] Work Phone: No Panel Informationon 06-16 SEE BELOW [facility] [address] Work Phone: Comment on above: Drug screen results are presumptive and should not be used to assess compliance with prescribed medication. Definitive confirmatory drug testing has been added to this sample for any positive screen result and will be reported separately. .Toxicology screening results are reported qualitatively. The concentration must be greater than or equal to the cutoff to be reported as positive. The concentration at which the screening test can detect an individual drug or metabolite varies. The absence of expected drug(s) and/or drug metabolite(s) may indicate non-compliance, inappropriate timing of specimen collection relative to drug administration, poor drug absorption, diluted/adulterated urine, or limitations of testing. For medical purposes only; not valid for forensic use. .Interpretive questions should be directed to the laboratory medical directors. <25 Cutoff <25 [facility] [address] Work Phone: Comment on above: The performance travis acteristics of the Zolpidem Confirmation, Urine has been validated by the individual laboratory site where testing is performed. It has not been cleared or approved by the FDA. However the FDA has determined that such clearance or approval is not necessary. Our Laboratory is certified under the Clinical Laboratory Improvement Amendments of 1988 (CLIA) as qualified to perform high complexity clinical laboratory testing. ANTI-SSAon 06-03-2023 ANTI-SSA <0.2 Normal [facility] Comment on above: Result Comment: REF VALUES < 1.0 = NEGATIVE >=1.0 = POSITIVE Performed By: #### A -SSA #### [facility] [address] [place] [address] ANTI-SSBon 06-03-2023 ANTI-SSB <0.2 Normal [facility] Comment on above: Result Comment: REF VALUES < 1.0 = NEGATIVE >=1.0 = POSITIVE Performed By: #### A -SSB #### [facility] [address] [place] ANTI-SSAon 06-02-2023 Lab Specimen Source Normal [facility] Comment on above: Performed By: #### A -SSA #### [facility] [address] [place], [place] Performed By: #### A -SSB #### [facility] [address] [place], [place] Anti SSAon 06-02-2023 Sjogrens syndrome-A extractable nuclear Ab IA Qn (S) <0.2 [facility] [address] [address] Work Phone: Comment on above: SOURCE: REF VALUES < 1.0 = NEGATIVE >=1.0 = POSITIVE Anti SSBon 06-02-2023 Sjogrens syndrome-B extractable nuclear Ab IA Qn (S) <0.2 [facility] [address] [address] Work Phone: Comment on above: SOURCE: REF VALUES < 1.0 = NEGATIVE >=1.0 = POSITIVE ANKLE, COMPLETE, MIN 3 VIEWS on 02-10-2023 ANKLE, COMPLETE, MIN 3 VIEWS Patient Name: PORSHA HOUSE STUDY: ANKLE, COMPLETE, MIN 3 VIEWS; Right; 02/10/2023 5:40 pm INDICATION: S93.491A Sprain of other ligament of right ankle, initial encounter. COMPARISON: None. ACCESSION NUMBER(S): [id number] ORDERING CLINICIAN: LUÍS DIXON FINDINGS: Three views of the right ankle Mild degenerative changes present. The ankle mortise and talar dome are intact. No acute fracture or dislocation present. No sizable joint effusion. Probable phleboliths. IMPRESSION: Degenerative changes without acute osseous abnormality identified Electronically signed by: VISHNU SCHNEIDER DO Normal [facility] Blood Pressure Cuff Sizeon 0 12-31-2022 Tobacco use status [facility] b) No [facility] Work Phone: Blood Pressure Cuff Size Adult [facility] Work Phone: Office Visit (Sleep Medicine )on 12-31-2022 Follow-up visit Diagnoses/Problems Assessed Non-smoker (V49.89) (Z78.9) Sleep apnea, unspecified (780.57) (G47.30) Orders Sleep apnea, unspecified Home Sleep Apnea Test; Status:Hold For - Scheduling; Requested for:31Dec2022; Perform:[facility]; Due:31Mar2023;Ordered; For:Sleep apnea, unspecified; Ordered By:Chanelle Estrada; SocHx: Non-smoker Tobacco Use Screening; Status:Complete; Done: 31Dec2022 Perform:Not Applicable;Ordered; For:SocHx: Non-smoker; Ordered By:Chanelle Estrada; Patient Discussion/Summary Obstructive Sleep Apnea: Obstructive sleep apnea occurs as repetitive episodes of partial or complete blockage of the upper air way during sleep. During an episode, the muscles work harder to re-open the airway and blood pressure may go up. Breathing usually resumes with a snort, loud gasp or body movement. Sleep apnea episode can interfere with getting quality sleep, cause heart rhythm problems, increases in blood pressure and reduce the flow of oxygen to vital organs such as the brain. A sleep study confirms the diagnosis and tells us how many times you stop breathing in your sleep. Treatment aims to re-open the airway, with the most common being Positive Airway Pressure (PAP) delivered with a soft interface. Other treatments include weight loss to remove excessive tissue around the neck, dental appliance, position (staying off the back) and surgery. Avoidance of sedatives such as alcohol, can help avoid worsening symptoms. For Insomnia: Relaxation before sleep. Include activities to help quiet the mind and relax the body to get into the right state for sleep. Use the bed ONLY FOR SLEEP. No TV, homework, reading, work, or other mental activities. Avoid worry time or thinking in bed. If you find your mind racing and uncontrollable, get out of bed. Find another time during the day to have ?worry time?. REGULAR SLEEP WAKE Times: Keep routine on weekday and weekends. This helps your biological clock stay in sync with your sleep needs. STIMULUS CONTROL: If you cannot sleep, do not stay in bed. If not asleep within 15-25 minutes (using your own body clock and not looking at the clock), get out of bed and do something boring/calm/relaxing. Stay in dim lighting, avoid any triggers for mental thinking (e.g. phone). Try relaxation. When you feel sleepy again, go back to bed. NO CLOCK watching. Thoughts of the time can cause frustration and make it more difficult to go to sleep. Limit Caffeine: Avoid after noon and cut down overall intake; avoid other stimulants and discuss medications that may make you more alert. Avoid naps: Naps steal away the sleep pressure to fall asleep at night. If you cannot avoid a nap, keep them brief (15 minutes). Exercise: exercise helps with sleep. Avoid exercises too late or just before bedtime. Adult Sleep Contact Information: TO SCHEDULE APPOINTMENTS: Adult Central [phone]. FOR ALL OTHER SCHEDULING NEEDS (doctor offices, sleep study, after hours sleep study line): [phone] Please call my office once you have your sleep study scheduled. Set a follow up appointment with me for 2-3 weeks after you sleep study date, which is about how long it takes to get results. You may schedule this appointment as a virtual visit; please let the office know you would like a virtual visit when you call to schedule. Please call [phone] to get this scheduled. Provider Impressions The following were addressed today: SLEEP APNEA - SUSPECTED -Sleep study ordered: HSAT - [place] -Avoid driving or operating heavy machinery when sleepy. CHRONIC SLEEP ONSET/ SLEEP MAINTENANCE INSOMNIA, likely due to poor sleep hygiene, irregular sleep schedule, depression, anxiety, untreated sleep apnea, delayed sleep phase syndrome -current sleep aid: Tylenol PM --> advised against using routinely -sleep hygiene discussed; avoid TV/phone/tablets or blue light emitting electronics while in bed, and ideally 1-2 hours before going to bed; often using phone in bed -advised on cutting back caffeine; switch to decafinated beverages after 12PM; ideally aim for no more than 2 servings of caffeine in the morning. -insomnia tips provided -consider CBTi in future RTC 2-3 weeks after HSAT Chief Complaint new patient office visit for evaluation for sleep apnea. Reason For Visit Reason for Visit: INITIAL Sleep Consult/New Patient: PCP Ericka Villela, VISIT DATE: 12/31/2022, PATIENT NAME/: PORSHA HOUSE is a 62 (: 1960): Sleep Concerns: snoring/breathing problems during sleep. History of Present Illness Referring Provider: Dr. Villela (internal medicine) for sleep apnea evaluation Porsha House has a past medical history significant for depression, GERD, HTN, OA. PAST SLEEP HISTORY: Patient has not had a sleep study in the past. Patient presents today for a sleep medicine consultation for concerns of #Sleep Apnea -reports since menopause she has had trouble sleeping, this wa (more content not included)... Normal [facility]works ALBUMIN, URINE SPOTon 2022 ALBUMIN,URINE 17.2 mg/L Normal Not Established [facility] Comment on above: Performed By: #### A LBSP #### [facility] [address] [place] [address] ALBUMIN/CREAT RATIO 16.5 ug/mg filling mixer Normal 0.0 - 30.0 [facility] Comment on above: Performed By: #### A LBSP #### [facility] [address] [place] [address] CREATININE,URINE 104.0 mg/dL Normal 20.0 - 320.0 [facility] Comment on above: Performed By: #### A LBSP #### [facility] [address] [place] [address] CBCon 12-18-2022 Erythrocyte distribution width (RBC) [Ratio] 12.9 % Normal 11.5 - 14.5 [facility] Comment on above: Performed By: #### C BC #### [facility] [address] [place] [address] Hematocrit (Bld) [Volume fraction] 42.2 % Normal 36.0 - 46.0 [facility] Comment on above: Performed By: #### C BC #### [facility] [address] [place] [address] Hemoglobin (Bld) [Mass/Vol] 13.7 g/dL Normal 12.0 - 16.0 [facility] Comment on above: Performed By: #### C BC #### [facility] [address] [place] [address] MCHC (RBC) [Mass/Vol] 32.5 g/dL Normal 32.0 - 36.0 [facility] Comment on above: Performed By: #### C BC #### [facility] [address] [place] [address] MCV (RBC) [Entitic vol] 96 fL Normal 80 - 100 [facility] Comment on above: Performed By: #### C BC #### [facility] [address] [place] [address] NUCLEATED RBC 0.0 /100 WBC Normal 0.0-0.0 [facility] Comment on above: Performed By: #### C BC #### [facility] [address] [place] [address] Platelets (Bld) [#/Vol] 154 10*3/uL Normal 150 - 450 [facility] Comment on above: Performed By: #### C BC #### [facility] [address] [place] [address] RBC 4.38 x10E12/L Normal 4.00 - 5.20 [facility] Comment on above: Performed By: #### C BC #### [facility] [address] [place] [address] WBC (Bld) [#/Vol] 5.1 10*3/uL Normal 4.4 - 11.3 [facility] Comment on above: Performed By: #### C BC #### [facility] [address] [place] [address] COMPREHENSIVE PANELon 2022 Albumin [Mass/Vol] 3.7 g/dL Normal 3.4 - 5.0 [facility] Comment on above: Performed By: #### D SBOP #### [facility] [address] [place] [address] ALP [Catalytic activity/Vol] 130 U/L Normal 33 - 136 [facility] Comment on above: Performed By: #### D SBOP #### [facility] [address] [place] [address] ALT [Catalytic activity/Vol] 29 U/L Normal 7 - 45 [facility] Comment on above: Result Comment: Kenzie ents treated with Sulfasalazine may generate falsely decreased results for ALT. Performed By: #### D SBOP #### [facility] [address] [place] [address] Anion gap [Moles/Vol] 10 mmol/L Normal 10 - 20 [facility] Comment on above: Performed By: #### D SBOP #### [facility] [address] [place] [address] AST [Catalytic activity/Vol] 32 U/L Normal 9 - 39 [facility] Comment on above: Performed By: #### D SBOP #### [place] [address] [place] [address] Bilirubin [Mass/Vol] 1.5 mg/dL High 0.0 - 1.2 [facility] Comment on above: Performed By: #### D SBOP #### [facility] [address] [place] [address] Calcium [Mass/Vol] 9.4 mg/dL Normal 8.6 - 10.6 [facility] Comment on above: Performed By: #### D SBOP #### [facility] [address] [place] [address] Chloride [Moles/Vol] 109 mmol/L High 98 - 107 [facility] Comment on above: Performed By: #### D SBOP #### [facility] [address] [place] [address] Creatinine [Mass/Vol] 0.73 mg/dL Normal 0.50 - 1.05 [facility] Comment on above: Performed By: #### D SBOP #### [facility] [address] [place] [address] eGFR FEMALE >90 Normal >90 [facility] Comment on above: Result Comment: CALC ULATIONS OF ESTIMATED GFR ARE PERFORMED USING THE 2020 CKD-EPI STUDY REFIT EQUATION WITHOUT THE RACE VARIABLE FOR THE IDMS-TRACEABLE CREATININE METHODS. https://jasn.asnjournals.org/content//ASN.678209 5858 Performed By: #### D SBOP #### [facility] [address] [place] [address] Glucose [Mass/Vol] 81 mg/dL Normal 74 - 99 [facility] Comment on above: Performed By: #### D SBOP #### [facility] [address] [place] [address] HCO3 (Bld) [Moles/Vol] 28 mmol/L Normal 21 - 32 [facility] Comment on above: Performed By: #### D SBOP #### [facility] [address] [place] [address] Potassium [Moles/Vol] 3.4 mmol/L Low 3.5 - 5.3 [facility] Comment on above: Performed By: #### D SBOP #### [facility] [address] [place] [address] Protein [Mass/Vol] 6.0 g/dL Low 6.4 - 8.2 [facility] Comment on above: Performed By: #### D SBOP #### [facility] [address] [place] [address] Sodium [Moles/Vol] 144 mmol/L Normal 136 - 145 [facility] Comment on above: Performed By: #### D SBOP #### [facility] [address] [place] [address] Urea nitrogen [Mass/Vol] 11 mg/dL Normal 6 - 23 [facility] Comment on above: Performed By: #### D SBOP #### [facility] [address] [place] [address] HEMOGLOBIN A1Con 12-18-2022 Glucose [Mass/Vol] 103 mg/dL Normal [facility] Comment on above: Performed By: #### H BA1E #### [facility] [address] [place] [address] HbA1c (Bld) [Mass fraction] 5.2 % Normal [facility] Comment on above: Result Comment: Diag nosis of Diabetes-Adults Non-Diabetic: < or = 5.6% Increased risk for developing diabetes: 5.7-6.4% Diagnostic of diabetes: > or = 6.5% . Monitoring of Diabetes Age (y) Therapeutic Goal (%) Adults: >18 <7.0 Pediatrics: 13-18 <7.5 7-12 <8.0 0- 6 7.5-8.5 [employer]. Diabetes Care 33(S1), Oct 2009. Performed By: #### H BA1E #### [facility] [address] [place] [address] LIPID PANEL (CORONARY RISK 2 )on 12-18-2022 Cholesterol [Mass/Vol] 146 mg/dL Normal 0 - 199 [facility] Comment on above: Result Comment: . AGE DESIRABLE BORDERLINE HIGH HIGH 0-19 Y 0 - 169 170 - 199 >/= 200 20-24 Y 0 - 189 190 - 224 >/= 225 >24 Y 0 - 199 200 - 239 >/= 240 All ranges are based on fasting samples. Specific therapeutic targets will vary based on patient-specific cardiac risk. . Pediatric guidelines reference:Pediatrics 2011, 128(S5). Adult guidelines reference: NCEP ATPIII Guidelines, KATHY 2001, 258:2486-97 . Venipuncture immediately after or during the administration of Metamizole may lead to falsely low results. Testing should be performed immediately prior to Metamizole dosing. Performed By: #### D SBOP #### [facility] [address] [place] [address] Cholesterol in HDL [Mass/Vol] 44.6 mg/dL Normal [facility] Comment on above: Result Comment: . AGE VERY LOW LOW NORMAL HIGH 0-19 Y < 35 < 40 40-45 ---- 20-24 Y ---- < 40 >45 ---- >24 Y ---- < 40 40-60 >60 . Performed By: #### D SBOP #### [facility] [address] [place] [address] Cholesterol in LDL [Mass/Vol] 78 mg/dL Normal 0 - 99 [facility] Comment on above: Result Comment: . NEAR BORD AGE DESIRABLE OPTIMAL HIGH HIGH VERY HIGH 0-19 Y 0 - 109 --- 110-129 >/= 130 ---- 20-24 Y 0 - 119 --- 120-159 >/= 160 ---- >24 Y 0 - 99 100-129 130-159 160-189 >/=190 . Performed By: #### D SBOP #### [facility] [address] [place] [address] Cholesterol in VLDL [Mass/Vol] 23 mg/dL Normal 0 - 40 [facility] Comment on above: Performed By: #### D SBOP #### [facility] [address] [place] [address] Cholesterol.total/Cho lesterol in HDL [Mass ratio] 3.3 {ratio} Normal [facility] Comment on above: Result Comment: REF VALUES DESIRABLE < 3.4 HIGH RISK > 5.0 Performed By: #### D SBOP #### [facility] [address] [place] [address] Triglyceride [Mass/Vol] 116 mg/dL Normal 0 - 149 [facility] Comment on above: Result Comment: . AGE DESIRABLE BORDERLINE HIGH HIGH VERY HIGH 0 D-90 D 19 - 174 ---- ---- ---- 91 D- 9 Y 0 - 74 75 - 99 >/= 100 ---- 10-19 Y 0 - 89 90 - 129 >/= 130 ---- 20-24 Y 0 - 114 115 - 149 >/= 150 ---- >24 Y 0 - 149 150 - 199 200- 499 >/= 500 . Venipuncture immediately after or during the administration of Metamizole may lead to falsely low results. Testing should be performed immediately prior to Metamizole dosing. Performed By: #### D SBOP #### [facility] [address] [place] [address] TSH WITH REFLEX TO FREE T4 I F ABNORMALon 12-18-2022 TSH Qn 1.00 m[IU]/L Normal 0.44 - 3.98 [facility] Comment on above: Result Comment: TSH testing is performed using different testing methodology at [facility] than at other [facility]. Direct result comparisons should only be made within the same method. Performed By: #### T HYDS #### [facility] [address] [place] [address] VITAMIN B12on 12-18-2022 Cobalamin (Vitamin B12) [Mass/Vol] 925 pg/mL High 211 - 911 [facility] Comment on above: Performed By: #### V TB12 #### [facility] [address] [place] [address] VITAMIN D, 25-HYDROXYon VITAMIN D, 25-HYDROXY 30 ng/mL Normal [facility] Comment on above: Result Comment: . DEFICIENCY: < 20 NG/ML INSUFFICIENCY: 20-29 NG/ML SUFFICIENCY: 30-100 NG/ML THIS ASSAY ACCURATELY QUANTIFIES THE SUM OF VITAMIN D3, 25-HYDROXY AND VIT D2,25-HYDROXY. Performed By: #### V TDOH #### [facility] [address] [place] [address] Hemoglobin A1Con 12-17-2022 Glucose [Mass/Vol] 103 mg/dL [facility] Work Phone: HbA1c (Bld) [Mass fraction] 5.2 % [facility] Work Phone: Comment on above: Diagnosis of Diabete s-Adults Non-Diabetic: < or = 5.6% Increased risk for developing diabetes: 5.7-6.4% Diagnostic of diabetes: > or = 6.5%. Monitoring of Diabetes Age (y) Therapeutic Goal (%) Adults: >18 <7.0 Pediatrics: 13-18 <7.5 7-12 <8.0 0- 6 7.5-8.5 [employer]. Diabetes Care 33(S1), Oct 2009. Laboratory - Chemistry and C hemistry - challengeon 12-17-2022 Albumin BCP dye [Mass/Vol] 3.7 g/dL 3.4 - 5.0 [facility] Work Phone: Albumin Ql (U) 17.2 mg/L See Below -[facility] Work Phone: Comment on above: Reference Range: Not Established Albumin/Creatinine DL <= 20 mg/L (U) [Mass ratio] 16.5 {ug/mg_crt} 0.0 - 30.0 -[facility] Work Phone: ALP [Catalytic activity/Vol] 130 U/L 33 - 136 [facility] Work Phone: ALT With P-5'-P [Catalytic activity/Vol] 29 U/L 7 - 45 -[facility] Work Phone: Comment on above: Patients treated wit h Sulfasalazine may generate falsely decreased results for ALT. Anion gap [Moles/Vol] 10 mmol/L 10 - 20 - [facility] Work Phone: AST With P-5'-P [Catalytic activity/Vol] 32 U/L 9 - 39 -[facility] Work Phone: Bilirubin [Mass/Vol] 1.5 mg/dL above high threshold 0.0 - 1.2 -[facility] Work Phone: Calcium [Mass/Vol] 9.4 mg/dL 8.6 - 10.6 [facility] Work Phone: Chloride [Moles/Vol] 109 mmol/L above high threshold 98 - 107 [facility] Work Phone: CO2 [Moles/Vol] 28 mmol/L 21 - 32 [facility] Work Phone: Creatinine (U) [Mass/Vol] 104.0 mg/dL See Below -[facility] Work Phone: Comment on above: Reference Range: 20. 0 - 320.0 Creatinine [Mass/Vol] 0.73 mg/dL See Below - [facility] Work Phone: Comment on above: Reference Range: 0.5 0 - 1.05 Glucose [Mass/Vol] 81 mg/dL 74 - 99 [facility] Work Phone: Potassium [Moles/Vol] 3.4 mmol/L below low threshold 3.5 - 5.3 [facility] Work Phone: Protein [Mass/Vol] 6.0 g/dL below low threshold 6.4 - 8.2 [facility] Work Phone: Sodium [Moles/Vol] 144 mmol/L 136 - 145 [facility] Work Phone: TSH Qn 1.00 m[IU]/L See Below [facility] Work Phone: Comment on above: Reference Range: 0.4 4 - 3.98 TSH testing is performed using different testing methodology at [facility] than at other [facility]. Direct result comparisons should only be made within the same method. Urea nitrogen [Mass/Vol] 11 mg/dL 6 - 23 [facility] Work Phone: Laboratory - Hematology and Cell countson 12-17-2022 Erythrocyte distribution width (RBC) [Ratio] 12.9 % See Below [facility] Work Phone: Comment on above: Reference Range: 11. 5 - 14.5 Hematocrit (Bld) [Volume fraction] 42.2 % See Below [facility] Work Phone: Comment on above: Reference Range: 36. 0 - 46.0 Hemoglobin (Bld) [Mass/Vol] 13.7 g/dL See Below [facility] Work Phone: Comment on above: Reference Range: 12. 0 - 16.0 MCHC (RBC) [Mass/Vol] 32.5 g/dL See Below [facility] Work Phone: Comment on above: Reference Range: 32. 0 - 36.0 MCV (RBC) [Entitic vol] 96 fL 80 - 100 [facility] Work Phone: Platelets (Bld) [#/Vol] 154 10*3/uL 150 - 450 [facility] Work Phone: RBC (Bld) [#/Vol] 4.38 {x10E12/L} See Below [facility] Work Phone: Comment on above: Reference Range: 4.0 0 - 5.20 WBC (Bld) [#/Vol] 5.1 10*3/uL 4.4 - 11.3 [facility] Work Phone: Lipid Panelon 12-17-2022 Cholesterol [Mass/Vol] 146 mg/dL 0 - 199 [facility] Work Phone: Comment on above: . AGE DESIRABLE BORD DEACON HIGH HIGH 0-19 Y 0 - 169 170 - 199 >/= 200 20-24 Y 0 - 189 190 - 224 >/= 225 >24 Y 0 - 199 200 - 239 >/= 240 All ranges are based on fasting samples. Specific therapeutic targets will vary based on patient-specific cardiac risk.. Pediatric guidelines reference:Pediatrics 2011, 128(S5). Adult guidelines reference: NCEP ATPIII Guidelines, KATHY 2001, 258:2486-97. Venipuncture immediately after or during the administration of Metamizole may lead to falsely low results. Testing should be performed immediately prior to Metamizole dosing. Cholesterol in HDL [Mass/Vol] 44.6 mg/dL [facility] Work Phone: Comment on above: . AGE VERY LOW LOW N ORMAL HIGH 0-19 Y < 35 < 40 40-45 ---- 20- 24 Y ---- < 40 >45 ---- >24 Y ---- < 40 40-60 >60. Cholesterol in LDL [Mass/Vol] 78 mg/dL 0 - 99 [facility] Work Phone: Comment on above: . NEAR BORD AGE GERALD RABLE OPTIMAL HIGH HIGH VERY HIGH 0-19 Y 0 - 109 --- 110-129 >/= 130 ---- 20-24 Y 0 - 119 --- 120-159 >/= 160 ---- >24 Y 0 - 99 100-129 130-159 160-189 >/=190. Cholesterol.total/Cho lesterol in HDL [Mass ratio] 3.3 {ratio} [facility] Work Phone: Comment on above: REF VALUESDESIRABLE < 3.4HIGH RISK > 5.0 Triglyceride [Mass/Vol] 116 mg/dL 0 - 149 [facility] Work Phone: Comment on above: . AGE DESIRABLE BORD DEACON HIGH HIGH VERY HIGH 0 D-90 D 19 - 174 ---- ---- ----91 D- 9 Y 0 - 74 75 - 99 >/= 100 ---- 10-19 Y 0 - 89 90 - 129 >/= 130 ---- 20-24 Y 0 - 114 115 - 149 >/= 150 ---- >24 Y 0 - 149 150 - 199 200- 499 >/= 500. Venipuncture immediately after or during the administration of Metamizole may lead to falsely low results. Testing should be performed immediately prior to Metamizole dosing. Lipid Panel 23 mg/dL 0 - 40 [facility] Work Phone: No Panel Informationon 12-17 0.0 {/100_WBC} 0.0-0.0 [facility] Work Phone: >90 >90 [facility] Work Phone: Comment on above: CALCULATIONS OF ARMOND MATED GFR ARE PERFORMED USING THE 2020 CKD-EPI STUDY REFIT EQUATION WITHOUT THE RACE VARIABLE FOR THE IDMS-TRACEABLE CREATININE METHODS.https://jasn.asnjournals.org/content// N.2123844056 Vitamin B12, Serumon 023 Cobalamin (Vitamin B12) [Mass/Vol] 925 pg/mL above high threshold 211 - 911 [facility] Work Phone: Vitamin D 25-Hydroxyon 12-17 25-hydroxyvitamin D3 [Mass/Vol] 30 ng/mL [facility] Work Phone: Comment on above: .DEFICIENCY: < 20 NG /MLINSUFFICIENCY: 20-29 NG/MLSUFFICIENCY: 30-100 NG/MLTHIS ASSAY ACCURATELY QUANTIFIES THE SUM OFVITAMIN D3, 25-HYDROXY AND VIT D2,25-HYDROXY. Office Visit (Urgent Care)on 10-20-2022 Follow-up visit Diagnoses/Problems Assessed Rib injury (959.11) (S29.9XXA) Contusion of rib on left side, initial encounter (922.1) (S20.212A) Orders Contusion of rib on left side, initial encounter Start: Lidocaine 5 % External Patch; APPLY 1 PATCH TO THE AFFECTED AREA AND LEAVE IN PLACE FOR 12 HOURS, THEN REMOVE AND LEAVE OFF FOR 12 HOURS Rx By: Laya Nichols; Dispense: 15 Days ; #:1 X 15 Patch Box; Refill: 0;For: Contusion of rib on left side, initial encounter; COLT = N; Sent To: [facility] [place], Rib injury Xray Ribs Unilateral with PA Cxr 3 View; Status:Resulted - Requires Verification; Done: 20Oct2022 01:39PM Performed:[facility]; Due:18Jan2023;Ordered; Stat; For:Rib injury; Ordered By:Laya Nichols; Laterality : Left Radiologist to Determine Optimal Study : Y What are the patient's signs and symptoms? : rib pain Patient Discussion/Summary Your x-rays were negative for fracture. Continue to rest and avoid strenuous activity. Apply prescription patches as directed. May continue to take Tylenol as needed for pain. Take 10 deep breaths every hour while awake to prevent lung collapse and pneumonia. Follow-up with your primary care physician and/or orthopedics if no improvement. Chief Complaint Chief Complaints Pain History of Present Illness 62-year-old female here for rib pain. Patient states 2 days ago she was taking down [place] lights when she tripped and fell into a flower bed. She states she landed on her left side. She denies any head injury, neck pain, loss of consciousness or other complaints. Complains of left-sided rib pain ever since. She states it hurts to move certain ways and take a deep breath. She denies however any shortness of breath, hemoptysis or other systemic complaints. Has been taking Tylenol. All other review of systems is negative for the chief complaint. 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) B12 deficiency anemia (281.1) (D51.9) Cervical radiculopathy (723.4) (M54.12) Colon polyps (211.3) (K63.5) Depression, major, single episode, severe (296.23) (F32.2) Diabetes mellitus (250.00) (E11.9) Diarrhea (787.91) (R19.7) Elevated alkaline phosphatase level (790.5) (R74.8) GERD (gastroesophageal reflux disease) (530.81) (K21.9) History of gastric surgery (V15.29) (Z98.890) Hypercholesterolemia (272.0) (E78.00) Hypertension (401.9) (I10) Hypokalemia (276.8) (E87.6) Malabsorption (579.9) (K90.9) 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 Need for influenza vaccination (V04.81) (Z23) Need for prophylactic vaccination and inoculation against influenza (V04.81) (Z23) Onychomycosis (110.1) (B35.1) Osteoarthritis of knee (715.36) (M17.9) Osteoporosis (733.00) (M81.0) Rib injury (959.11) (S29.9XXA) S/P gastric surgery (V45.89) (Z98.890) Special screening for other conditions (V82.89) (Z13.89) Spider veins (448.1) (I78.1) Status post gastric bypass for obesity (V45.86) (Z98.84) Vasculitic neuropathy (447.6,357.4) (I77.6,G63) Visit for screening mammogram (V76.12) (Z12.31) Vitamin B12 deficiency (266.2) (E53.8) Vitamin D deficiency (268.9) (E55.9) Past Medical History Problems History of Abnormal liver enzymes (790.5) (R74.8) Resolved Date: 24 Apr 2020 History of Acute pain of left knee (719.46) (M25.562) Resolved Date: 24 Apr 2020 History of Acute pain of right knee (719.46) (M25.561) Resolved Date: 24 Apr 2020 History of Acute pain of right wrist (719.43) (M25.531) Resolved Date: 24 Apr 2020 History of Back contusion (922.31) (S20.229A) Resolved Date: 24 Apr 2020 History of Back muscle spasm (724.8) (M62.830) Resolved Date: 24 Apr 2020 History of BMI 31.0-31.9,adult (V85.31) (Z68.31) Resolved Date: 04 Dec 2020 History of Campylobacter jejuni food poisoning (005.89) (A05.8) Resolved Date: 01 Jan 2022 History of Cellulitis of left upper extremity (682.3) (L03.114) Resolved Date: 04 Dec 2020 History of Contusion of left lower extremity, initial encounter (924.5) (S80.12XA) Resolved Date: 24 Apr 2020 History of Contusion of rib, right, initial encounter (922.1) (S20.211A) Resolved Date: 04 Dec 2020 History of Diarrhea of infectious origin (009.2) (A09) Resolved Date: 01 Jan 2022 History of Endometrial polyp (621.0) (N84.0) 1992 History of Fall from other slipping, tripping, or stumbling (E885.9) (W01.0XXA) Resolved Date: 01 Jan 2022 History of Fall from other slipping, tripping, or stumbling (E885.9) (W01.0XXA) Resolved Date: 08 Mar 2019 History of Fracture of nasal bone (802.0) (S02.2XXA) History of Gluteal pain (729.1) (M79.18) Resolved Date: 24 Apr 2020 History of High risk medication use (V58.69) (Z79.899) Resolved Date: 04 Dec 2020 History of High risk medication use (V58.69) (Z79.899) Resolved Date: 01 Jan 2022 History of H (more content not included)... Normal [facility] RIBS, UNILATERAL, W PA CXR 3 VIEWSon 10-20-2022 RIBS, UNILATERAL, W PA CXR 3 VIEWS Patient Name: PORSHA HOUSE STUDY: RIBS, UNILATERAL, W PA CXR 3 VIEWS; 10/20/2022 1:39 pm INDICATION: rib pain S29.9XXA: Rib injury. COMPARISON: 08/01/2020 ACCESSION NUMBER(S): [id number] ORDERING CLINICIAN: LAYA NICHOLS TECHNIQUE: Four views of the left ribs including AP and oblique images as well as a single PA view of the chest were obtained. FINDINGS: No displaced rib fracture is identified. No focal infiltrate, pleural effusion or pneumothorax is seen. The cardiac silhouette is within normal limits for size. IMPRESSION: 1. No displaced fracture identified. 2. No focal infiltrate or pneumothorax identified. Electronically signed by: MICHAEL ZIMMERMAN MD Normal [facility] Radiologyon 10-20-2022 XR Ribs - left 3 Views Normal [facility] Work Phone: Tobacco Screening.on 023 Adult depression screening assessment No [facility] Work Phone: Fall risk assessment b) One or more fall s in the last year [facility] Work Phone: Tobacco use status CPHS b) No [facility] Work Phone: Office Visiton 09-03-2022 Follow-up visit Diagnoses/Problems Need for influenza vaccination (V04.81) (Z23) B12 deficiency anemia (281.1) (D51.9) Depression, major, single episode, severe (296.23) (F32.2) Diabetes mellitus (250.00) (E11.9) GERD (gastroesophageal reflux disease) (530.81) (K21.9) Hypercholesterolemia (272.0) (E78.00) Hypertension (401.9) (I10) Vitamin B12 deficiency (266.2) (E53.8) Orders B12 deficiency anemia Administered: Cyanocobalamin 1000 MCG/ML Injection Solution Depression, major, single episode, severe Renew: Sertraline HCl - 50 MG Oral Tablet; TAKE 1 TABLET DAILY DIRECTED Hypertension Renew: Lisinopril 10 MG Oral Tablet; TAKE 1 TABLET DAILY DIRECTED Need for influenza vaccination Administered: Flulaval Quadrivalent 0.5 ML Intramuscular Suspension Prefilled Syringe Patient Discussion/Summary f/u 45 min in December with wellness appt get fasting labs in December before appt Provider Impressions 1. Hypertension, blood pressure is stable and well-controlled 2. Gastroesophageal reflux disease is also stable with no breakthrough symptoms 3. Hypercholesterolemia, patient is due for lipid profile in December and was given a requisition today but in the meantime we will stay on atorvastatin 10 mg daily 4. Depression is doing well with sertraline 50 mg daily and is stable 5. Osteoporosis, patient remains on calcium, vitamin D and Prolia injections 6. Patient has B12 deficiency will receive a flu shot today as well as B12. She had gastric bypass surgery and has had malabsorption of B12 since then Patient's last A1c was 5.7% she is a diabetic but well controlled so we only checked once or twice a year Patient will follow-up with me in December with an annual wellness visit and she was given a requisition for fasting labs due prior to that appointment. Chief Complaint pt is here for 4 mon for cholesterol, HTN, and depression management. BN//AMD History of Present IllnessPatient is here for routine management of her hypertension, gastroesophageal reflux disease, osteoporosis, depression and cholesterol. Currently she is doing well and has no new complaints. Patient does want a flu shot today as well as her B12 shot. 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 Pt denies fever, chills, malaise or headache. Pt denies SOB, cough or DOUGLAS. Pt denies Chest pains pressures or palpitations. Pt denies Nausea, vomiting, constipation, or diarrhea. Pt denies swelling of hands feet ankles or joints. 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) B12 deficiency anemia (281.1) (D51.9) Cervical radiculopathy (723.4) (M54.12) Colon polyps (211.3) (K63.5) Depression, major, single episode, severe (296.23) (F32.2) Diabetes mellitus (250.00) (E11.9) Diarrhea (787.91) (R19.7) Elevated alkaline phosphatase level (790.5) (R74.8) GERD (gastroesophageal reflux disease) (530.81) (K21.9) History of gastric surgery (V15.29) (Z98.890) Hypercholesterolemia (272.0) (E78.00) Hypertension (401.9) (I10) Hypokalemia (276.8) (E87.6) Malabsorption (579.9) (K90.9) 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 Need for influenza vaccination (V04.81) (Z23) Need for prophylactic vaccination and inoculation against influenza (V04.81) (Z23) Onychomycosis (110.1) (B35.1) Osteoarthritis of knee (715.36) (M17.9) Osteoporosis (733.00) (M81.0) S/P gastric surgery (V45.89) (Z98.890) Special screening for other conditions (V82.89) (Z13.89) Spider veins (448.1) (I78.1) Status post gastric bypass for obesity (V45.86) (Z98.84) Vasculitic neuropathy (447.6,357.4) (I77.6,G63) Visit for screening mammogram (V76.12) (Z12.31) Vitamin B12 deficiency (266.2) (E53.8) Vitamin D deficiency (268.9) (E55.9) Past Medical History History of Abnormal liver enzymes (790.5) (R74.8) Resolved Date: 24 Apr 2020 History of Acute pain of left knee (719.46) (M25.562) Resolved Date: 24 Apr 2020 History of Acute pain of right knee (719.46) (M25.561) Resolved Date: 24 Apr 2020 History of Acute pain of right wrist (719.43) (M25.531) Resolved Date: 24 Apr 2020 History of Back contusion (922.31) (S20.229A) Resolved Date: 24 Apr 2020 History of Back muscle spasm (724.8) (M62.830) Resolved Date: 24 Apr 2020 History of BMI 31.0-31.9,adult (V85.31) (Z68.31) Resolved Date: 04 Dec 2020 History of Campylobacter jejuni food poisoning (005.89) (A05.8) Resolved Date: 01 Jan 2022 History of Cellulitis of left upper extremity (682.3) (L03.114) Resolved Date: 04 Dec 2020 History of Contusion of left lower extremity, initial encounter (924.5) (S80.12XA) Resolved Date: 24 Apr 2020 History of Contusion of rib, right, initial encounter (922.1) (S20.211A) Resolved Date: 04 Dec 2020 History of Diarrhea of infectious origin (009.2 (more content not included)... Normal [employer] PHQ-2 VITALSon 09-03-2022 Adult depression screening assessment No [facility] Work Phone: Pharm D Noteon 08-19-2022 Pharm D Note No report was sent [facility] CLOST DIFF. TOXIN, PCRon C. difficile toxin genes THANIA+probe Ql (Stl) Not detected See Below [facility] Work Phone: Comment on above: Reference Range: Not Detected This assay detects the presence of the tcdB (toxin B) gene via DNA amplification, and results should be interpreted in the context of the patients history and clinical findings. This test cannot be performed on formed stools or used as a test of cure, and should not be performed more than once per 7 days. LACTOFERRIN, FECALon 022 Lactoferrin IA Ql (Stl) Negative Negative [facility] Work Phone: Comment on above: A negative result do es not exclude the presence of intestinal inflammation.Performed By: ERINN [address] [place], [place] [address]Horsqozdzj Director: Leonardo Roberts MD, PhD No Panel Informationon 04-21 Negative Negative [facility] Work Phone: Comment on above: Performed By: [id number] [place], [place] [address]Wdqkbdeycc Director: Leonardo Roberts MD, PhD SOURCE: INTERPRETIVE INFORMATION: Ova and Parasite, FecalMethod for identification of Ova and Parasites includes wet mount and trichrome stains.Due to the various shedding cycles of many parasites, three separate stool specimens collected over a 5-7-day period are recommended for ova and parasite examination. A single negative result does not rule out the possibility of a parasitic infection. The ova and parasite exam does not specifically detect Cryptosporidium, Cyclospora, Cystoisospora, and Microsporidia. For additional test information refer to [employer], [email or web address] By: [address] [id number] Director: Leonardo Roberts MD, PhD Occult Blood, Stoolon 2021 Hemoglobin.gastrointe stinal Ql (Stl) Negative Negative [facility] Work Phone: STOOL PATHOGEN PCR PANELon 0 04-21-2022 Campylobacter sp DNA.diarrheagenic THANIA+probe Ql (Stl) Not detected See Below [facility] Work Phone: Comment on above: Reference Range: NOT DETECTED E. coli stx1 gene THANIA+probe Ql (Unsp spec) Not detected See Below [facility] Work Phone: Comment on above: Reference Range: NOT DETECTED E. coli stx2 gene THANIA+probe Ql (Unsp spec) Not detected See Below [facility] Work Phone: Comment on above: Reference Range: NOT DETECTED Norovirus genogroup I and II RNA THANIA+probe Nom (Stl) Not detected See Below [facility] Work Phone: Comment on above: Reference Range: NOT DETECTED Rotavirus RNA THANIA+probe Nom (Stl) Not detected See Below [facility] Work Phone: Comment on above: Reference Range: NOT DETECTED The enteric PCR panel is a panel of sensitive and specific amplified nucleic acid tests indicated as an aid in the diagnosis of specific bacterial and viral agents of gastrointestinal illness, in conjunction with other clinical, laboratory, and epidemiological information. This test is not approved for monitoring these infections. Monitoring is available for Salmonella and Shigella infections-request test Stool PCR Follow-Up (STLPF). Monitoring tests are not available at this time for other enteric agents in this panel. Shigella sp DNA THANIA+probe Ql (Unsp spec) Not detected See Below [facility] Work Phone: Comment on above: Reference Range: NOT DETECTED Vibrio sp DNA THANIA+probe Nom (Unsp spec) Not detected See Below [facility] Work Phone: Comment on above: Reference Range: NOT DETECTED Yersinia sp DNA THANIA+probe Nom (Unsp spec) Not detected See Below [facility] Work Phone: Comment on above: SOURCE: Reference Ra nge: NOT DETECTED STOOL PATHOGEN PCR PANEL Not detected See Below [facility] Work Phone: Comment on above: Reference Range: NOT DETECTED CLOST DIFF. TOXIN, PCRon C. difficile toxin genes THANIA+probe Ql (Stl) Not detected See Below [facility] Work Phone: Comment on above: Reference Range: Not Detected This assay detects the presence of the tcdB (toxin B) gene via DNA amplification, and results should be interpreted in the context of the patients history and clinical findings. This test cannot be performed on formed stools or used as a test of cure, and should not be performed more than once per 7 days. Laboratory - Chemistry and C hemistry - challengeon 04-01-2022 Albumin BCP dye [Mass/Vol] 3.9 g/dL 3.4 - 5.0 [facility] Work Phone: ALP [Catalytic activity/Vol] 96 U/L 33 - 136 [facility] Work Phone: ALT With P-5'-P [Catalytic activity/Vol] 38 U/L 7 - 45 [facility] Work Phone: Comment on above: Patients treated wit h Sulfasalazine may generate falsely decreased results for ALT. Anion gap [Moles/Vol] 12 mmol/L 10 - 20 [facility] Internal [facility] Work Phone: AST With P-5'-P [Catalytic activity/Vol] 44 U/L above high threshold 9 - 39 [facility] Work Phone: Bilirubin [Mass/Vol] 1.0 mg/dL 0.0 - 1.2 [facility] Work Phone: Calcium [Mass/Vol] 9.0 mg/dL 8.6 - 10.6 -Int [facility] Work Phone: Chloride [Moles/Vol] 113 mmol/L above high threshold 98 - 107 [facility] Work Phone: CO2 [Moles/Vol] 21 mmol/L 21 - 32 [facility] al [facility] Work Phone: Creatinine [Mass/Vol] 1.04 mg/dL See Below [facility] Work Phone: Comment on above: Reference Range: 0.5 0 - 1.05 Glucose [Mass/Vol] 122 mg/dL above high threshold 74 - 99 [facility] Work Phone: Potassium [Moles/Vol] 3.0 mmol/L below low threshold 3.5 - 5.3 [facility] Work Phone: Protein [Mass/Vol] 6.4 g/dL 6.4 - 8.2 [facility] Work Phone: Sodium [Moles/Vol] 143 mmol/L 136 - 145 [facility] Work Phone: Urea nitrogen [Mass/Vol] 18 mg/dL 6 - 23 [facility] Work Phone: Magnesium, Serumon 2 Magnesium [Mass/Vol] 1.98 mg/dL See Below [facility] Work Phone: Comment on above: Reference Range: 1.6 0 - 2.40 No Panel Informationon 04-01 60 {mL/min/1.73m2} >90 [facility] Work Phone: Comment on above: CALCULATIONS OF ARMOND MATED GFR ARE PERFORMED USING THE 2020 CKD-EPI STUDY REFIT EQUATION WITHOUT THE RACE VARIABLE FOR THE IDMS-TRACEABLE CREATININE METHODS.https://jasn.asnjournals.org/content/early/ N.5942121385 CLOST DIFF. TOXIN, PCRon C. difficile toxin genes THANIA+probe Ql (Stl) Canceled [facility] Work Phone: Comment on above: This assay detects t he presence of the tcdB (toxin B) gene via DNA amplification, and results should be interpreted in the context of the patients history and clinical findings. This test cannot be performed on formed stools or used as a test of cure, and should not be performed more than once per 7 days. CLOST DIFF. TOXIN, PCR Canceled See Below [facility] Work Phone: Comment on above: Reference Range: Not Detected STOOL PATHOGEN PCR PANELon 0 03-25-2022 Campylobacter sp DNA.diarrheagenic THANIA+probe Ql (Stl) Not detected See Below [facility] Work Phone: Comment on above: Reference Range: NOT DETECTED E. coli stx1 gene THANIA+probe Ql (Unsp spec) Not detected See Below [facility] Work Phone: Comment on above: Reference Range: NOT DETECTED E. coli stx2 gene THANIA+probe Ql (Unsp spec) Not detected See Below [facility] Work Phone: Comment on above: Reference Range: NOT DETECTED Norovirus genogroup I and II RNA THANIA+probe Nom (Stl) Not detected See Below [facility] Work Phone: Comment on above: Reference Range: NOT DETECTED Rotavirus RNA THANIA+probe Nom (Stl) Not detected See Below [facility] Work Phone: Comment on above: Reference Range: NOT DETECTED The enteric PCR panel is a panel of sensitive and specific amplified nucleic acid tests indicated as an aid in the diagnosis of specific bacterial and viral agents of gastrointestinal illness, in conjunction with other clinical, laboratory, and epidemiological information. This test is not approved for monitoring these infections. Monitoring is available for Salmonella and Shigella infections-request test Stool PCR Follow-Up (STLPF). Monitoring tests are not available at this time for other enteric agents in this panel. Shigella sp DNA THANIA+probe Ql (Unsp spec) Not detected See Below [facility] Work Phone: Comment on above: Reference Range: NOT DETECTED Vibrio sp DNA THANIA+probe Nom (Unsp spec) Not detected See Below [facility] Work Phone: Comment on above: Reference Range: NOT DETECTED Yersinia sp DNA THANIA+probe Nom (Unsp spec) Not detected See Below [facility] Work Phone: Comment on above: SOURCE: Reference Ra nge: NOT DETECTED STOOL PATHOGEN PCR PANEL Not detected See Below [facility] Work Phone: Comment on above: Reference Range: NOT DETECTED Tobacco Screening.on 022 Fall risk assessment a) No falls within the last year [facility] [employer] Work Phone: Tobacco use status CPHS b) No [facility] [employer] Work Phone: Hemoglobin A1Con 01-08-2022 Glucose [Mass/Vol] 117 mg/dL [facility] Work Phone: HbA1c (Bld) [Mass fraction] 5.7 % Abnormal [facility] Work Phone: Comment on above: Diagnosis of Diabete s-Adults Non-Diabetic: < or = 5.6% Increased risk for developing diabetes: 5.7-6.4% Diagnostic of diabetes: > or = 6.5%. Monitoring of Diabetes Age (y) Therapeutic Goal (%) Adults: >18 <7.0 Pediatrics: 13-18 <7.5 7-12 <8.0 0- 6 7.5-8.5 [employer]. Diabetes Care 33(S1), Oct 2009. Laboratory - Chemistry and C hemistry - challengeon 01-08-2022 Albumin BCP dye [Mass/Vol] 3.9 g/dL 3.4 - 5.0 [facility] Work Phone: Albumin Ql (U) 8.8 mg/L See Below [facility] Work Phone: Comment on above: Reference Range: Not Established Albumin/Creatinine DL <= 20 mg/L (U) [Mass ratio] 8.8 {ug/mg_crt} 0.0 - 30.0 [facility] Work Phone: ALP [Catalytic activity/Vol] 85 U/L 33 - 136 [facility] Work Phone: ALT With P-5'-P [Catalytic activity/Vol] 23 U/L 7 - 45 [facility] Work Phone: Comment on above: Patients treated wit h Sulfasalazine may generate falsely decreased results for ALT. Anion gap [Moles/Vol] 13 mmol/L 10 - 20 [facility] Work Phone: AST With P-5'-P [Catalytic activity/Vol] 27 U/L 9 - 39 [facility] Work Phone: Bilirubin [Mass/Vol] 1.1 mg/dL 0.0 - 1.2 -I [facility] Work Phone: [phone] Calcium [Mass/Vol] 9.8 mg/dL 8.6 - 10.6 [facility] Work Phone: Chloride [Moles/Vol] 110 mmol/L above high threshold 98 - 107 [facility] Work Phone: CO2 [Moles/Vol] 25 mmol/L 21 - 32 [facility] al [facility] Work Phone: Creatinine (Body fld) [Mass/Vol] 100.5 mg/dL [facility] Work Phone: Comment on above: A urine creatinine r esult >= 20 mg/dL is considered valid without suspicion of dilution. Samples with results below this range will automatically reflex to specific gravity testing to verify specimen integrity. Creatinine (U) [Mass/Vol] 99.6 mg/dL See Below [facility] Work Phone: Comment on above: Reference Range: 20. 0 - 320.0 Creatinine [Mass/Vol] 0.81 mg/dL See Below [facility] Work Phone: Comment on above: Reference Range: 0.5 0 - 1.05 Glucose [Mass/Vol] 91 mg/dL 74 - 99 [facility] Work Phone: Potassium [Moles/Vol] 3.7 mmol/L 3.5 - 5.3 [facility] Work Phone: Protein [Mass/Vol] 6.5 g/dL 6.4 - 8.2 [facility] Work Phone: Sodium [Moles/Vol] 144 mmol/L 136 - 145 [facility] Work Phone: TSH Qn 1.34 m[IU]/L See Below [facility] Work Phone: Comment on above: Reference Range: 0.4 4 - 3.98 TSH testing is performed using different testing methodology at [facility] than at other [facility]. Direct result comparisons should only be made within the same method. Urea nitrogen [Mass/Vol] 17 mg/dL 6 - 23 [facility] Work Phone: Laboratory - Drug toxicology on 01-08-2022 1-Hydroxymidazolam Confirm (U) [Mass/Vol] <25 Cutoff <25 [facility] Work Phone: 0-Wfpggtdiyp-2,5-Dime thyl-3,3-Diphenylpyrr olidine (EDDP) Confirm (U) [Mass/Vol] <25 Cutoff <25 [facility] Work Phone: Comment on above: The performance travis acteristics of the Methadone Confirmation, Urine has been validated by the individual laboratory site where testing is performed. It has not been cleared or approved by the FDA. However the FDA has determined that such clearance or approval is not necessary. Our Laboratory is certified under the Clinical Laboratory Improvement Amendments of 1988 (CLIA) as qualified to perform high complexity clinical laboratory testing. 6-Monoacetylmorphine (6-WAQAR) Confirm (U) [Mass/Vol] <25 Cutoff <25 [facility] Work Phone: 7-Aminoclonazepam Confirm (U) [Mass/Vol] <25 Cutoff <25 [facility] Work Phone: Alpha hydroxyalprazolam Confirm (U) [Mass/Vol] <25 Cutoff <25 [facility] Work Phone: ALPRAZolam Confirm (U) [Mass/Vol] <25 Cutoff <25 [facility] Work Phone: Amphetamines Screen Ql (U) Negative NEGATIVE [facility] Work Phone: Comment on above: CUTOFF LEVEL: 500 NG /ML Cross-reactivity has been reported with high concentrations of the following drugs: buproprion, chloroquine, chlorpromazine, ephedrine, mephentermine, fenfluramine, phentermine, phenylpropanolamine, pseudoephedrine, and propranolol. Barbiturates Screen Ql (U) Negative NEGATIVE [facility] Work Phone: Comment on above: CUTOFF LEVEL: 200 NG /ML Benzoylecgonine Screen Ql (U) Negative NEGATIVE [facility] Work Phone: Comment on above: CUTOFF LEVEL: 150 NG /ML Cannabinoids Screen Ql (U) Negative NEGATIVE [facility] Work Phone: Comment on above: CUTOFF LEVEL: 50 NG/ ML chlordiazePOXIDE Confirm (U) [Mass/Vol] <25 Cutoff <25 [facility] Work Phone: clonazePAM Confirm (U) [Mass/Vol] <25 Cutoff <25 -[facility] Work Phone: Codeine Confirm (U) [Mass/Vol] <50 Cutoff <50 -[facility] Work Phone: diazePAM Confirm (U) [Mass/Vol] <25 Cutoff <25 [facility] Work Phone: fentaNYL Confirm (U) [Mass/Vol] <2.5 Cutoff<2.5 -[facility] Work Phone: HYDROcodone Confirm (U) [Mass/Vol] <25 Cutoff <25 -[facility] Work Phone: HYDROmorphone Confirm (U) [Mass/Vol] <25 Cutoff <25 [facility] Work Phone: LORazepam Confirm (U) [Mass/Vol] <25 Cutoff <25 [facility] Work Phone: Methadone Confirm (U) [Mass/Vol] <25 Cutoff <25 [facility] Work Phone: Midazolam Confirm (U) [Mass/Vol] <25 Cutoff <25 [facility] Work Phone: Morphine Confirm (U) [Mass/Vol] <50 Cutoff <50 [facility] Work Phone: Nordiazepam Confirm (U) [Mass/Vol] <25 Cutoff <25 [facility] Work Phone: Norfentanyl Confirm (U) [Mass/Vol] <2.5 Cutoff<2.5 [facility] Work Phone: Comment on above: The performance travis acteristics of the Fentanyl Confirmation, Urine has been validated by the individual laboratory site where testing is performed. It has not been cleared or approved by the FDA. However the FDA has determined that such clearance or approval is not necessary. Our Laboratory is certified under the Clinical Laboratory Improvement Amendments of 1988 (CLIA) as qualified to perform high complexity clinical laboratory testing. Norhydrocodone Confirm (U) [Mass/Vol] <25 Cutoff <25 [facility] Work Phone: Noroxycodone Confirm (U) [Mass/Vol] <25 Cutoff <25 [facility] Work Phone: Nortramadol (U) [Mass/Vol] <50 Cutoff <50 [facility] Work Phone: Comment on above: The performance travis acteristics of the Tramadol Confirmation, Urine has been validated by the individual laboratory site where testing is performed. It has not been cleared or approved by the FDA. However the FDA has determined that such clearance or approval is not necessary. Our Laboratory is certified under the Clinical Laboratory Improvement Amendments of 1988 (CLIA) as qualified to perform high complexity clinical laboratory testing. Oxazepam Confirm (U) [Mass/Vol] <25 Cutoff <25 -[facility] Work Phone: oxyCODONE Confirm (U) [Mass/Vol] <25 Cutoff <25 [facility] [facility] Work Phone: oxyMORphone Confirm (U) [Mass/Vol] <25 Cutoff <25 -[facility] Work Phone: Comment on above: The performance travis acteristics of the Opiate Confirmation, Urine has been validated by the individual laboratory site where testing is performed. It has not been cleared or approved by the FDA. However the FDA has determined that such clearance or approval is not necessary. Our Laboratory is certified under the Clinical Laboratory Improvement Amendments of 1988 (CLIA) as qualified to perform high complexity clinical laboratory testing. Phencyclidine Ql (U) Negative NEGATIVE MP-I [facility] Work Phone: Comment on above: CUTOFF LEVEL: 25 NG/ ML Cross-reactivity has been reported with dextromethorphan. Temazepam Confirm (U) [Mass/Vol] <25 Cutoff <25 -[facility] Work Phone: Comment on above: The performance travis acteristics of the Benzodiazepine Confirmation, Urine has been validated by the individual laboratory site where testing is performed. It has not been cleared or approved by the FDA. However the FDA has determined that such clearance or approval is not necessary. Our Laboratory is certified under the Clinical Laboratory Improvement Amendments of 1988 (CLIA) as qualified to perform high complexity clinical laboratory testing. traMADol Confirm (U) [Mass/Vol] <50 Cutoff <50 -[facility] Work Phone: [phone] Zolpidem (U) [Mass/Vol] <25 Cutoff <25 -Internal [facility] Work Phone: Laboratory - Hematology and Cell countson 01-08-2022 Erythrocyte distribution width (RBC) [Ratio] 14.5 % See Below -Internal [facility] Work Phone: Comment on above: Reference Range: 11. 5 - 14.5 Hematocrit (Bld) [Volume fraction] 39.8 % See Below [facility] Work Phone: Comment on above: Reference Range: 36. 0 - 46.0 Hemoglobin (Bld) [Mass/Vol] 12.1 g/dL See Below [facility] Work Phone: Comment on above: Reference Range: 12. 0 - 16.0 MCHC (RBC) [Mass/Vol] 30.4 g/dL below low threshold See Below [facility] Work Phone: Comment on above: Reference Range: 32. 0 - 36.0 MCV (RBC) [Entitic vol] 92 fL 80 - 100 [facility] Work Phone: Platelets (Bld) [#/Vol] 182 10*3/uL 150 - 450 [facility] Work Phone: RBC (Bld) [#/Vol] 4.33 {x10E12/L} See Below [facility] Work Phone: Comment on above: Reference Range: 4.0 0 - 5.20 WBC (Bld) [#/Vol] 4.9 10*3/uL 4.4 - 11.3 [facility] Work Phone: Lipid Panelon 01-08-2022 Cholesterol [Mass/Vol] 167 mg/dL 0 - 199 [facility] Work Phone: Comment on above: . AGE DESIRABLE BORD DEACON HIGH HIGH 0-19 Y 0 - 169 170 - 199 >/= 200 20-24 Y 0 - 189 190 - 224 >/= 225 >24 Y 0 - 199 200 - 239 >/= 240 All ranges are based on fasting samples. Specific therapeutic targets will vary based on patient-specific cardiac risk.. Pediatric guidelines reference:Pediatrics 2011, 128(S5). Adult guidelines reference: NCEP ATPIII Guidelines, KATHY 2001, 258:2486-97. Venipuncture immediately after or during the administration of Metamizole may lead to falsely low results. Testing should be performed immediately prior to Metamizole dosing. Cholesterol in HDL [Mass/Vol] 53.7 mg/dL [facility] Work Phone: Comment on above: . AGE VERY LOW LOW N ORMAL HIGH 0-19 Y < 35 < 40 40-45 ---- 20- 24 Y ---- < 40 >45 ---- >24 Y ---- < 40 40-60 >60. Cholesterol in LDL [Mass/Vol] 84 mg/dL 0 - 99 [facility] Work Phone: Comment on above: . NEAR BORD AGE GERALD RABLE OPTIMAL HIGH HIGH VERY HIGH 0-19 Y 0 - 109 --- 110-129 >/= 130 ---- 20-24 Y 0 - 119 --- 120-159 >/= 160 ---- >24 Y 0 - 99 100-129 130-159 160-189 >/=190. Cholesterol.total/Cho lesterol in HDL [Mass ratio] 3.1 {ratio} [facility] Work Phone: Comment on above: REF VALUESDESIRABLE < 3.4HIGH RISK > 5.0 Triglyceride [Mass/Vol] 145 mg/dL 0 - 149 [facility] Work Phone: Comment on above: . AGE DESIRABLE BORD DEACON HIGH HIGH VERY HIGH 0 D-90 D 19 - 174 ---- ---- ----91 D- 9 Y 0 - 74 75 - 99 >/= 100 ---- 10-19 Y 0 - 89 90 - 129 >/= 130 ---- 20-24 Y 0 - 114 115 - 149 >/= 150 ---- >24 Y 0 - 149 150 - 199 200- 499 >/= 500. Venipuncture immediately after or during the administration of Metamizole may lead to falsely low results. Testing should be performed immediately prior to Metamizole dosing. Lipid Panel 29 mg/dL 0 - 40 [facility] Work Phone: No Panel Informationon 01-08 0.0 {/100_WBC} 0.0-0.0 [facility] Work Phone: 81 {mL/min/1.73m2} >90 -[facility] Work Phone: Comment on above: CALCULATIONS OF ARMOND MATED GFR ARE PERFORMED USING THE 2020 CKD-EPI STUDY REFIT EQUATION WITHOUT THE RACE VARIABLE FOR THE IDMS-TRACEABLE CREATININE METHODS.https://jasn.asnjournals.org/content/early/ N.9851455805 SEE BELOW [facility] Work Phone: Comment on above: Drug screen results are presumptive and should not be used to assess compliance with prescribed medication. Definitive confirmatory drug testing has been added to this sample for any positive screen result and will be reported separately. .Toxicology screening results are reported qualitatively. The concentration must be greater than or equal to the cutoff to be reported as positive. The concentration at which the screening test can detect an individual drug or metabolite varies. The absence of expected drug(s) and/or drug metabolite(s) may indicate non-compliance, inappropriate timing of specimen collection relative to drug administration, poor drug absorption, diluted/adulterated urine, or limitations of testing. For medical purposes only; not valid for forensic use. .Interpretive questions should be directed to the laboratory medical directors. <25 Cutoff <25 [facility] Work Phone: Comment on above: The performance travis acteristics of the Zolpidem Confirmation, Urine has been validated by the individual laboratory site where testing is performed. It has not been cleared or approved by the FDA. However the FDA has determined that such clearance or approval is not necessary. Our Laboratory is certified under the Clinical Laboratory Improvement Amendments of 1988 (CLIA) as qualified to perform high complexity clinical laboratory testing. Urine Cultureon 01-08-2022 [facility] Culture exhibits no growth. Normal [facility] Comment on above: Performed By: #### M 100.3621 #### [facility] [address] [place], [place], [id number] Vitamin B12, Serumon 022 Cobalamin (Vitamin B12) [Mass/Vol] 991 pg/mL above high threshold 211 - 911 [facility] Work Phone: Vitamin D 25-Hydroxyon 01-08 25-hydroxyvitamin D3 [Mass/Vol] 37 ng/mL [facility] Work Phone: Comment on above: .DEFICIENCY: < 20 NG /MLINSUFFICIENCY: 20-29 NG/MLSUFFICIENCY: 30-100 NG/MLTHIS ASSAY ACCURATELY QUANTIFIES THE SUM OFVITAMIN D3, 25-HYDROXY AND VIT D2,25-HYDROXY. Tobacco Screening.on Fall risk assessment a) No falls within the last year [facility] Work Phone: Tobacco use status CPHS b) No [facility] Work Phone: STOOL PATHOGEN PCR PANELon 10-25-2020 Campylobacter sp DNA.diarrheagenic THANIA+probe Ql (Stl) Detected Critically abnormal See Below [facility] Work Phone: Comment on above: Reference Range: NOT DETECTEDCAMPY CALLED TO AMEENA SAWANT, 08/26/2021 10:04 E. coli stx1 gene THANIA+probe Ql (Unsp spec) Not detected See Below [facility] Work Phone: Comment on above: Reference Range: NOT DETECTED E. coli stx2 gene THANIA+probe Ql (Unsp spec) Not detected See Below [facility] Work Phone: Comment on above: Reference Range: NOT DETECTED Norovirus genogroup I and II RNA THANIA+probe Nom (Stl) Not detected See Below [facility] Work Phone: Comment on above: Reference Range: NOT DETECTED Rotavirus RNA THANIA+probe Nom (Stl) Not detected See Below [facility] Work Phone: Comment on above: Reference Range: NOT DETECTED The enteric PCR panel is a panel of sensitive and specific amplified nucleic acid tests indicated as an aid in the diagnosis of specific bacterial and viral agents of gastrointestinal illness, in conjunction with other clinical, laboratory, and epidemiological information. This test is not approved for monitoring these infections. Monitoring is available for Salmonella and Shigella infections-request test Stool PCR Follow-Up (STLPF). Monitoring tests are not available at this time for other enteric agents in this panel. Shigella sp DNA THANIA+probe Ql (Unsp spec) Not detected See Below [facility] Work Phone: Comment on above: Reference Range: NOT DETECTED Vibrio sp DNA THANIA+probe Nom (Unsp spec) Not detected See Below [facility] [employer] Work Phone: Comment on above: Reference Range: NOT DETECTED Yersinia sp DNA THANIA+probe Nom (Unsp spec) Not detected See Below [facility] [employer] Work Phone: Comment on above: SOURCE: Reference Ra nge: NOT DETECTED STOOL PATHOGEN PCR PANEL Not detected See Below [facility] Work Phone: Comment on above: Reference Range: NOT DETECTED GASTROINTESTINAL PCR PANELon 07-25-2021 GASTROINTESTINAL PCR PANEL GASTROINTESTINAL PCR PANEL --> Status: F POSITIVE: Campylobacter. _ The [facility] Gastrointestinal PCR Panel can detect the following targets: Campylobacter, Plesiomonas shigelloides, Salmonella, Vibrio species, Vibrio cholerae, Yersinia enterocolitica, Shiga toxin-producing E coli (STEC) including E coli O157, Enterotoxigenic E coli (ETEC), Shigella/Enteroinvasive E coli (EIEC), Cryptosporidium, Cyclospora cayetanensis, Entamoeba histolytica, Giardia lamblia, Adenovirus F 40/41, Astrovirus, Norovirus GI/GII, Rotavirus A, Sapovirus _ The [facility]U Gastrointestinal PCR Panel can detect the following targets: Campylobacter, Plesiomonas shigelloides, Salmonella, Vibrio species, Vibrio cholerae, Yersinia enterocolitica, Shiga toxin-producing E coli (STEC) including E coli O157, Enterotoxigenic E coli (ETEC), Shigella/Enteroinvasive E coli (EIEC), Cryptosporidium, Cyclospora cayetanensis, Entamoeba histolytica, Giardia lamblia, Adenovirus F 40/41, Astrovirus, Norovirus GI/GII, Rotavirus A, Sapovirus Abnormal [facility] Comment on above: Performed By: #### B FGI #### [facility] [address] [place] [id number] Gastrointestinal Panel, Mole cularOrdered By: Rivera Tan on 07-25-2021 Gastrointestinal PCR Panel POSITIVE: Campylobacter. _ The [facility]U Gastrointestinal PCR Panel can detect the following targets: Campylobacter, Plesiomonas shigelloides, Salmonella, Vibrio species, Vibrio cholerae, Yersinia enterocolitica, Shiga toxin-producing E coli (STEC) including E coli O157, Enterotoxigenic E coli (ETEC), Shigella/Enteroinvasive E coli (EIEC), Cryptosporidium, Cyclospora cayetanensis, Entamoeba histolytica, Giardia lamblia, Adenovirus F 40/41, Astrovirus, Norovirus GI/GII, Rotavirus A, Sapovirus Abnormal [facility] Work Phone: 1 Interpretation and review of laboratory results Abnormal [facility] Work Phone: 1 Test Performed by [facility], [address] [place] [id number] [facility] Work Phone: 1 [facility] Work Phone: 1 Add On Lab TestOrdered By: Chano Tan on 07-24-2021 Add On Accepted [facility] Work [facility]: Comment on above: Specimen available & acceptable for analysis. Test Performed by [facility], [address] [place], [place] [address] Added to original [id number] [facility] Work Phone: [facility] Work Phone: 1 Add on test from HISon 07-24 Add on test from HIS Accepted Normal [facility] Comment on above: Order Comment: Added to original [id number] Result Comment: Spec imen available & acceptable for analysis. Performed By: #### A DDON #### [facility] [employer] [address] [place] [address] CBC WITH AUTO DIFFERENTIALOr dered By: Rivera Tan on 07-24-2021 Absolute Baso # 0.0 10*3/uL 0.0 - 0.2 10*3/uL [facility] Work Phone: [phone] Absolute Neut # 6.4 10*3/uL 1.8 - 7.0 10*3/uL [facility] Work Phone: Basophils/100 WBC (Bld) 0.4 % 0.0 - 2.0 % [facility] Work Phone: 1 Eosinophils (Bld) [#/Vol] 0.0 10*3/uL 0.0 - 0.5 10*3/uL [facility] Work Phone: 1 22 Eosinophils/100 WBC (Bld) 0.5 % Low 1.0 - 6.0 % [facility] Work Phone: Granulocytes/100 WBC (Bld) 76.0 % 40.0 - 80.0 % [facility] Work Phone: 1 Hematocrit (Bld) [Volume fraction] 44.4 % 35.0 - 47.0 % [facility] Work Phone: Hemoglobin.gastrointe stinal spec 1 Ql (Stl) 14.6 g/dL 11.7 - 16.0 g/dL [facility] Work Phone: Interpretation and review of laboratory results Abnormal [facility] Work Phone: Lymphocytes (Bld) [#/Vol] 1.4 10*3/uL 1.0 - 4.3 10*3/uL [facility] Work Phone: 1 22 Lymphocytes/100 WBC (Bld) 16.0 % Low 20.0 - 40.0 % [facility] Work Phone: MCH (RBC) [Entitic mass] 28.1 pg 26.0 - 34.0 pg [facility] Work Phone: MCHC (RBC) [Mass/Vol] 32.9 % 32.0 - 36.0 % [facility] Work Phone: MCV (RBC) [Entitic vol] 85.5 fL 79.0 - 98.0 fL [facility] Work Phone: Monocytes (Bld) [#/Vol] 0.6 10*3/uL 0.0 - 0.8 10*3/uL [facility] Work Phone: 22 Monocytes/100 WBC (Bld) 7.1 % 2.0 - 10.0 % [facility] Work Phone: Platelet distribution width (Bld) [Ratio] 15.7 % High 11.5 - 14.5 % [facility] Work Phone: [phone] Platelet mean volume (Bld) [Entitic vol] 6.7 fL Low 7.4 - 10.4 fL [facility] Work [facility]: 1 Platelets (Bld) [#/Vol] 274 10*3/uL 140 - 440 10*3/uL [facility] Work Phone: 1 RBC (Bld) [#/Vol] 5.20 10*6/uL 3.80 - 5.2 0 10*6/uL [facility] Work Phone: 1 WBC (Bld) [#/Vol] 8.5 10*3/uL 3.6 - 10.7 10*3/uL [facility] Work Phone: 1 Test Performed by [facility], [address] [place], [place] [id number] [place], [place] [address] Work Phone: 1 [facility] Work [facility]: 1 Comp Metabolic Panelon 07-24 ALP [Catalytic activity/Vol] 114 U/L Normal 38-126 [facility] Comment on above: Result Comment: slig ht hemolysis Performed By: #### H EMDF, CMP3, MG3 #### [facility] [address] [place] [address] ALT [Catalytic activity/Vol] 22 U/L Normal 0-34 [facility] Comment on above: Result Comment: The ALT test is performed by an updated assay method. Please note that the reference intervals have been changed and are now sex specific. Performed By: #### H EMDF, CMP3, MG3 #### [facility] [address] [place] [address] Calcium [Mass/Vol] 8.7 mg/dL Normal 8.4-10.4 [facility] Comment on above: Performed By: #### H EMDF, CMP3, MG3 #### [facility] [address] [place] [address] Glucose [Mass/Vol] 126 mg/dL High 70-100 [facility] Comment on above: Performed By: #### H EMDF, CMP3, MG3 #### [facility] [address] [place] [address] Urea nitrogen [Mass/Vol] 14 mg/dL Normal 9-20 [facility] Comment on above: Performed By: #### H YURY AMAYA3, MG3 #### [facility] [address] [place] [address] Anion gap [Moles/Vol] 8 mmol/L Normal 3-13 [facility] Comment on above: Performed By: #### H JOSE LUIS CMP3, MG3 #### [facility] [address] [place] [address] AST [Catalytic activity/Vol] 45 U/L Normal 15-46 [facility] Comment on above: Result Comment: slig ht hemolysis Performed By: #### H JOSE LUIS CMP3, MG3 #### [facility] [address] [place] [address] Bilirubin [Mass/Vol] 1.4 mg/dL High 0.2-1.3 [facility] Comment on above: Performed By: #### H JOSE LUIS CMP3, MG3 #### [facility] [address] [place] [address] CO2 [Moles/Vol] 19 mmol/L Low 22-30 [facility] Comment on above: Performed By: #### H JOSE LUIS, CMP3, MG3 #### [facility] [address] [place] [address] Creatinine [Mass/Vol] 0.91 mg/dL Normal 0.52-1.25 [facility] Comment on above: Performed By: #### H JOSE LUIS, CMP3, MG3 #### [facility] [address] [place] [address] GFR/1.73 sq M.predicted among blacks MDRD (S/P/Bld) [Vol rate/Area] 77.7 mL/min/{1.73_m2} Normal >60 [facility] Comment on above: Performed By: #### H EMDF, CMP3, MG3 #### [facility] [address] [place] [address] GFR/1.73 sq M.predicted among non-blacks MDRD (S/P/Bld) [Vol rate/Area] 67.0 mL/min/{1.73_m2} Normal >60 [facility] Comment on above: Result Comment: KDIG O guidelines provide the following GFR categories: Stage GFR(ml/min/1.73 m2) Terms G1 >=90 Normal or high G2 60-89 Mildly decreased* G3a 45-59 Mildly to moderately decreased G3b 30-44 Moderately to severely decreased G4 15-29 Severely decreased G5 <15 Kidney failure *Relative to young adult level. In the absence of evidence of kidney damage, neither GFR category G1 nor G2 fulfill the criteria for CKD. The CKD-EPI equation is validated in individuals 18 years of age and older. Currently the best equation for estimating glomerular filtration rate (GFR) from serum creatinine in children is the Bedside Tatum equation. It is less accurate in patients with extremes of muscle mass, restriction of dietary protein, ingestion of creatine, extra-renal metabolism of creatinine, or treatment with medications that affect renal tubular creatinine secretion. Performed By: #### H YURY AMAYA3, MG3 #### [facility] [address] [facility] [place] [address] Protein [Mass/Vol] 7.5 g/dL Normal 6.3-8.2 [facility] Comment on above: Result Comment: slig ht hemolysis Performed By: #### H YURY AMAYA3, MG3 #### [facility] [address] [place] [address] Chloride [Moles/Vol] 113 mmol/L High 98-107 [facility] Comment on above: Performed By: #### H YURY AMAYA3, MG3 #### [facility] [address] [place] [address] Potassium [Moles/Vol] 4.8 mmol/L Normal 3.5-5.1 [facility] Comment on above: Result Comment: Slig ht hemolysis Performed By: #### H YURY AMAYA3, MG3 #### [facility] [address] [place] [address] Sodium [Moles/Vol] 139 mmol/L Normal 135-145 [facility] Comment on above: Performed By: #### H YURY AMAYA3, MG3 #### [facility] [address] [place] [address] Albumin [Mass/Vol] 4.1 g/dL Normal 3.5-5.0 [facility] Comment on above: Result Comment: slig ht hemolysis Performed By: #### H EMDF, CMP3, MG3 #### [facility] [address] [place] [address] Comprehensive Metabolic Pane lOrdered By: Rivera Tan on 07-24-2021 Albumin [Mass/Vol] 4.1 g/dL 3.5 - 5.0 g/dL [facility] Work Phone: [phone] Comment on above: slight hemolysis ALP (Bld) [Catalytic activity/Vol] 114 U/L 38 - 126 U/L [facility] Work Phone: [phone] Comment on above: slight hemolysis ALT [Catalytic activity/Vol] 22 U/L 0 - 34 U/L [facility] Work Phone: [phone] Comment on above: The ALT test is perf ormed by an updated assay method. Please note that the reference intervals have been changed and are now sex specific. Anion gap [Moles/Vol] 8 mmol/L 3 - 13 mmol/L [facility] Work Phone: [phone] AST [Catalytic activity/Vol] 45 U/L 15 - 46 U/L [facility] Work Phone: [phone] Comment on above: slight hemolysis Bilirubin [Mass/Vol] 1.4 mg/dL High 0.2 - 1 .3 mg/dL [facility] Work Phone: [phone] Calcium [Mass/Vol] 8.7 mg/dL 8.4 - 10. 4 mg/dL [facility] Work Phone: [phone] Chloride [Moles/Vol] 113 mmol/L High 98 - 10 7 mmol/L [facility] Work Phone: [phone] CO2 [Moles/Vol] 19 mmol/L Low 22 - 30 mmol/L [facility] Work Phone: [phone] Creatinine [Mass/Vol] 0.91 mg/dL 0.52 - 1.25 mg/dL [facility] Work Phone: [phone] EGFR IF NonAfrican Cymro 67.0 mL/min >60 [facility] Work Phone: [phone] Comment on above: KDIGO guidelines pro vide the following GFR categories: Stage GFR(ml/min/1.73 m2) Terms G1 >=90 Normal or high G2 60-89 Mildly decreased* G3a 45-59 Mildly to moderately decreased G3b 30-44 Moderately to severely decreased G4 15-29 Severely decreased G5 <15 Kidney failure *Relative to young adult level. In the absence of evidence of kidney damage, neither GFR category G1 nor G2 fulfill the criteria for CKD. The CKD-EPI equation is validated in individuals 18 years of age and older. Currently the best equation for estimating glomerular filtration rate (GFR) from serum creatinine in children is the Bedside Tatum equation. It is less accurate in patients with extremes of muscle mass, restriction of dietary protein, ingestion of creatine, extra-renal metabolism of creatinine, or treatment with medications that affect renal tubular creatinine secretion. Free PSA/Total PSA [Mass fraction] 7.5 g/dL 6.3 - 8.2 g/dL [facility] Work Phone: [phone] Comment on above: slight hemolysis GFR/1.73 sq M.predicted among blacks MDRD (S/P/Bld) [Vol rate/Area] 77.7 mL/min/{1.73_m2} >60 [facility] Work Phone: [phone] Glucose [Mass/Vol] 126 mg/dL High 70 - 100 mg/dL [facility] Work Phone: [phone] Interpretation and review of laboratory results Abnormal [facility] Work Phone: [phone] Potassium [Moles/Vol] 4.8 mmol/L 3.5 - 5.1 mmol/L [facility] Work Phone: [phone] Comment on above: Slight hemolysis Sodium [Moles/Vol] 139 mmol/L 135 - 145 mmol/L [facility] Work Phone: [phone] Urea nitrogen (BldV) [Mass/Vol] 14 mg/dL 9 - 20 mg/dL [facility] Work Phone: [phone] Test Performed by [facility], [facility] [address] [place], [place] [address] [facility] Work Phone: [phone] [facility] Work Phone: Hemogram w/ Autodiffon 07-24 Abs Baso Cnt 0.0 10*3/uL Normal 0.0-0.2 [facility] Comment on above: Performed By: #### H EMDF, CMP3, MG3 #### [facility] [address] [place] [address] Abs Neutrophile Cnt 6.4 10*3/uL Normal 1.8-7.0 [facility] Comment on above: Performed By: #### H EMDF, CMP3, MG3 #### [facility] [address] [place] [address] Basophils/100 WBC (Bld) 0.4 % Normal 0.0-2.0 [facility] Comment on above: Performed By: #### H EMDF, CMP3, MG3 #### [facility] [address] [place] [address] Eosinophils (Bld) [#/Vol] 0.0 10*3/uL Normal 0.0-0.5 [facility] Comment on above: Performed By: #### H EMDF, CMP3, MG3 #### [facility] [address] [place] [address] Eosinophils/100 WBC (Bld) 0.5 % Low 1.0-6.0 [facility] Comment on above: Performed By: #### H EMDF, CMP3, MG3 #### [facility] [address] [place] [address] Erythrocyte distribution width (RBC) [Ratio] 15.7 % High 11.5-14.5 [facility] Comment on above: Performed By: #### H EMDF, CMP3, MG3 #### [facility] [address] [place] [address] Granulocytes/100 WBC (Bld) 76.0 % Normal 40.0-80.0 [facility] Comment on above: Performed By: #### H EMDF, CMP3, MG3 #### [facility] [address] [place] [address] Hematocrit (Bld) [Volume fraction] 44.4 % Normal 35.0-47.0 [facility] Comment on above: Performed By: #### H YURY AMAYA3, MG3 #### [facility] [facility] [address] [place] [address] Hemoglobin (Bld) [Mass/Vol] 14.6 g/dL Normal 11.7-16.0 [facility] Comment on above: Performed By: #### H YURY AMAYA3, MG3 #### [facility] [address] [place] [address] Lymphocytes (Bld) [#/Vol] 1.4 10*3/uL Normal 1.0-4.3 [facility] Comment on above: Performed By: #### H YURY AMAYA3, MG3 #### [facility] [address] [place] [address] Lymphocytes/100 WBC (Bld) 16.0 % Low 20.0-40.0 [facility] Comment on above: Performed By: #### H YURY AMAYA3, MG3 #### [facility] [address] [place] [address] MCH (RBC) [Entitic mass] 28.1 pg Normal 26.0-34.0 [facility] Comment on above: Performed By: #### H YURY AMAYA3, MG3 #### [facility] [address] [place] [address] MCHC 32.9 % Normal 32.0-36.0 [facility] Comment on above: Performed By: #### H YURY AMAYA3, MG3 #### [facility] [address] [place] [address] MCV (RBC) [Entitic vol] 85.5 fL Normal 79.0-98.0 [facility] Comment on above: Performed By: #### H JOSE LUIS, CMP3, MG3 #### [facility] [address] [place] [address] Monocytes (Bld) [#/Vol] 0.6 10*3/uL Normal 0.0-0.8 [facility] Comment on above: Performed By: #### H EMDF, CMP3, MG3 #### [facility] [address] [place] [address] Monocytes/100 WBC (Bld) 7.1 % Normal 2.0-10.0 [facility] Comment on above: Performed By: #### H EMDF, CMP3, MG3 #### [facility] [address] [place] [address] Platelet mean volume (Bld) [Entitic vol] 6.7 fL Low 7.4-10.4 [facility] Comment on above: Performed By: #### H EMDF, CMP3, MG3 #### [facility] [address] [place] [address] Platelets (Bld) [#/Vol] 274 10*3/uL Normal 140-440 [facility] Comment on above: Performed By: #### H EMDF, CMP3, MG3 #### [facility] [address] [place] [address] RBC (Bld) [#/Vol] 5.20 10*6/uL Normal 3.80-5.20 [facility] Comment on above: Performed By: #### H EMDF, CMP3, MG3 #### [facility] [address] [place] [address] WBC (Bld) [#/Vol] 8.5 10*3/uL Normal 3.6-10.7 [facility] Comment on above: Performed By: #### H EMDF, CMP3, MG3 #### [facility] [address] [place] [address] Magnesiumon 07-24-2021 Magnesium [Mass/Vol] 2.1 mg/dL Normal 1.6-2.3 [facility] Comment on above: Result Comment: slig ht hemolysis Performed By: #### H EMDF, CMP3, MG3 #### [facility] [address] [place] [address] MagnesiumOrdered By: Rivera Tan on 07-24-2021 Magnesium [Mass/Vol] 2.1 mg/dL 1.6 - 2 .3 mg/dL [facility] Work Phone: Comment on above: slight hemolysis Test Performed by [facility], [address] , [place], [place] [address] [facility] Work Phone: [phone] [facility] Work Phone: [phone] Laboratory - Chemistry and C hemistry - challengeon 07-16-2021 Creatinine (Body fld) [Mass/Vol] 155.4 mg/dL [facility] [facility] [address] Work Phone: Comment on above: A urine creatinine r esult >= 20 mg/dL is considered valid without suspicion of dilution. Samples with results below this range will automatically reflex to specific gravity testing to verify specimen integrity. Laboratory - Drug toxicology on 07-16-2021 1-Hydroxymidazolam Confirm (U) [Mass/Vol] <25 Cutoff <25 [facility] [address] Work Phone: 3-Qbyvkzbqtt-1,5-Dime thyl-3,3-Diphenylpyrr olidine (EDDP) Confirm (U) [Mass/Vol] <25 Cutoff <25 [facility] [address] Work Phone: Comment on above: The performance travis acteristics of the Methadone Confirmation, Urine has been validated by the individual laboratory site where testing is performed. It has not been cleared or approved by the FDA. However the FDA has determined that such clearance or approval is not necessary. Our Laboratory is certified under the Clinical Laboratory Improvement Amendments of 1988 (CLIA) as qualified to perform high complexity clinical laboratory testing. 6-Monoacetylmorphine (6-WAQAR) Confirm (U) [Mass/Vol] <25 Cutoff <25 [facility] [address] Work Phone: 7-Aminoclonazepam Confirm (U) [Mass/Vol] <25 Cutoff <25 [facility] [address] Work Phone: Alpha hydroxyalprazolam Confirm (U) [Mass/Vol] <25 Cutoff <25 [facility] [address] Work Phone: ALPRAZolam Confirm (U) [Mass/Vol] <25 Cutoff <25 [facility] [address] Work Phone: Amphetamines Screen Ql (U) Negative NEGATIVE [place] [address] Work Phone: Comment on above: CUTOFF LEVEL: 500 NG /ML Cross-reactivity has been reported with high concentrations of the following drugs: buproprion, chloroquine, chlorpromazine, ephedrine, mephentermine, fenfluramine, phentermine, phenylpropanolamine, pseudoephedrine, and propranolol. Barbiturates Screen Ql (U) Negative NEGATIVE [place] [address] Work Phone: Comment on above: CUTOFF LEVEL: 200 NG /ML Benzoylecgonine Screen Ql (U) Negative NEGATIVE [place] [address] Work Phone: Comment on above: CUTOFF LEVEL: 150 NG /ML Cannabinoids Screen Ql (U) Negative NEGATIVE [place] [address] Work Phone: Comment on above: CUTOFF LEVEL: 50 NG/ ML chlordiazePOXIDE Confirm (U) [Mass/Vol] <25 Cutoff <25 [facility] [address] Work Phone: clonazePAM Confirm (U) [Mass/Vol] <25 Cutoff <25 [facility] [address] Work Phone: Codeine Confirm (U) [Mass/Vol] <50 Cutoff <50 [facility] [address] Work Phone: diazePAM Confirm (U) [Mass/Vol] <25 Cutoff <25 [facility] [address] Work Phone: fentaNYL Confirm (U) [Mass/Vol] <2.5 Cutoff<2.5 [facility] [address] Work Phone: HYDROcodone Confirm (U) [Mass/Vol] <25 Cutoff <25 [facility] [address] Work Phone: HYDROmorphone Confirm (U) [Mass/Vol] <25 Cutoff <25 [facility] [address] Work Phone: LORazepam Confirm (U) [Mass/Vol] <25 Cutoff <25 [facility] [address] Work Phone: Methadone Confirm (U) [Mass/Vol] <25 Cutoff <25 [facility] [address] Work Phone: Midazolam Confirm (U) [Mass/Vol] <25 Cutoff <25 [facility] [address] Work Phone: Morphine Confirm (U) [Mass/Vol] <50 Cutoff <50 [facility] [address] Work Phone: Nordiazepam Confirm (U) [Mass/Vol] <25 Cutoff <25 [facility] [address] Work Phone: Norfentanyl Confirm (U) [Mass/Vol] <2.5 Cutoff<2.5 [facility] [address] Work Phone: Comment on above: The performance travis acteristics of the Fentanyl Confirmation, Urine has been validated by the individual laboratory site where testing is performed. It has not been cleared or approved by the FDA. However the FDA has determined that such clearance or approval is not necessary. Our Laboratory is certified under the Clinical Laboratory Improvement Amendments of 1988 (CLIA) as qualified to perform high complexity clinical laboratory testing. Norhydrocodone Confirm (U) [Mass/Vol] <25 Cutoff <25 [facility] [address] Work Phone: Noroxycodone Confirm (U) [Mass/Vol] <25 Cutoff <25 [facility] [address] Work Phone: Nortramadol (U) [Mass/Vol] <50 Cutoff <50 [facility] [address] Work Phone: Comment on above: The performance travis acteristics of the Tramadol Confirmation, Urine has been validated by the individual laboratory site where testing is performed. It has not been cleared or approved by the FDA. However the FDA has determined that such clearance or approval is not necessary. Our Laboratory is certified under the Clinical Laboratory Improvement Amendments of 1988 (CLIA) as qualified to perform high complexity clinical laboratory testing. Oxazepam Confirm (U) [Mass/Vol] <25 Cutoff <25 [facility] [address] Work Phone: oxyCODONE Confirm (U) [Mass/Vol] <25 Cutoff <25 [facility] [address] Work Phone: oxyMORphone Confirm (U) [Mass/Vol] <25 Cutoff <25 [facility] [address] Work Phone: Comment on above: The performance travis acteristics of the Opiate Confirmation, Urine has been validated by the individual laboratory site where testing is performed. It has not been cleared or approved by the FDA. However the FDA has determined that such clearance or approval is not necessary. Our Laboratory is certified under the Clinical Laboratory Improvement Amendments of 1988 (CLIA) as qualified to perform high complexity clinical laboratory testing. Phencyclidine Ql (U) Negative NEGATIVE [facility] [address] Work Phone: Comment on above: CUTOFF LEVEL: 25 NG/ ML Cross-reactivity has been reported with dextromethorphan. Temazepam Confirm (U) [Mass/Vol] <25 Cutoff <25 [facility] [address] Work Phone: Comment on above: The performance travis acteristics of the Benzodiazepine Confirmation, Urine has been validated by the individual laboratory site where testing is performed. It has not been cleared or approved by the FDA. However the FDA has determined that such clearance or approval is not necessary. Our Laboratory is certified under the Clinical Laboratory Improvement Amendments of 1988 (CLIA) as qualified to perform high complexity clinical laboratory testing. traMADol Confirm (U) [Mass/Vol] <50 Cutoff <50 [facility] [address] Work Phone: Zolpidem (U) [Mass/Vol] <25 Cutoff <25 [facility] [address] Work Phone: No Panel Informationon 07-16 <25 Cutoff <25 [facility] [address] Work Phone: Comment on above: The performance travis acteristics of the Zolpidem Confirmation, Urine has been validated by the individual laboratory site where testing is performed. It has not been cleared or approved by the FDA. However the FDA has determined that such clearance or approval is not necessary. Our Laboratory is certified under the Clinical Laboratory Improvement Amendments of 1988 (CLIA) as qualified to perform high complexity clinical laboratory testing. SEE BELOW [facility] Work Phone: Comment on above: Drug screen results are presumptive and should not be used to assess compliance with prescribed medication. Definitive confirmatory drug testing has been added to this sample for any positive screen result and will be reported separately. .Toxicology screening results are reported qualitatively. The concentration must be greater than or equal to the cutoff to be reported as positive. The concentration at which the screening test can detect an individual drug or metabolite varies. The absence of expected drug(s) and/or drug metabolite(s) may indicate non-compliance, inappropriate timing of specimen collection relative to drug administration, poor drug absorption, diluted/adulterated urine, or limitations of testing. For medical purposes only; not valid for forensic use. .Interpretive questions should be directed to the laboratory medical directors. Xray Bone Density, Dexa 1 or More Siteson 05-08-2021 Xray Bone Density, Dexa 1 or More Sites Normal [facility] Work Phone: Radiologyon 04-30-2021 XR Pelvis and Hip - left 2 Views Normal [facility] Work Phone: XR Pelvis and Hip - left 2 Views Please click on the link to view the study images Normal [facility] Work Phone: Hemoglobin A1Con 04-25-2021 Glucose [Mass/Vol] 126 mg/dL [facility] Work Phone: HbA1c (Bld) [Mass fraction] 6.0 % [facility] Work Phone: Comment on above: Diagnosis of Diabete s-Adults Non-Diabetic: < or = 5.6% Increased risk for developing diabetes: 5.7-6.4% Diagnostic of diabetes: > or = 6.5%. Monitoring of Diabetes Age (y) Therapeutic Goal (%) Adults: >18 <7.0 Pediatrics: 13-18 <7.5 7-12 <8.0 0- 6 7.5-8.5 [employer]. Diabetes Care 33(S1), Oct 2009. Laboratory - Chemistry and C hemistry - challengeon 04-25-2021 Albumin BCP dye [Mass/Vol] 4.0 g/dL 3.4 - 5.0 -[facility] Work Phone: ALP [Catalytic activity/Vol] 116 U/L 33 - 136 -[facility] Work Phone: ALT With P-5'-P [Catalytic activity/Vol] 22 U/L 7 - 45 -[facility] Work Phone: Comment on above: Patients treated wit h Sulfasalazine may generate falsely decreased results for ALT. Anion gap [Moles/Vol] 13 mmol/L 10 - 20 - [facility] Work Phone: AST With P-5'-P [Catalytic activity/Vol] 26 U/L 9 - 39 -[facility] Work Phone: Bilirubin [Mass/Vol] 1.0 mg/dL 0.0 - 1.2 [facility] Work Phone: Calcium [Mass/Vol] 9.3 mg/dL 8.6 - 10.6 [facility] Work Phone: Chloride [Moles/Vol] 109 mmol/L above high threshold 98 - 107 -[facility] Work Phone: CO2 [Moles/Vol] 23 mmol/L 21 - 32 -[facility] Work Phone: Creatinine [Mass/Vol] 0.98 mg/dL See Below - [facility] Work Phone: Comment on above: Reference Range: 0.5 0 - 1.05 Glucose [Mass/Vol] 103 mg/dL above high threshold 74 - 99 -[facility] Work Phone: Potassium [Moles/Vol] 3.8 mmol/L 3.5 - 5.3 - [facility] Work Phone: Protein [Mass/Vol] 6.4 g/dL 6.4 - 8.2 [facility] Work Phone: Sodium [Moles/Vol] 141 mmol/L 136 - 145 [facility] Work Phone: Urea nitrogen [Mass/Vol] 16 mg/dL 6 - 23 [facility] Work Phone: Laboratory - Hematology and Cell countson 04-25-2021 Erythrocyte distribution width (RBC) [Ratio] 14.4 % See Below [facility] Work Phone: Comment on above: Reference Range: 11. 5 - 14.5 Hematocrit (Bld) [Volume fraction] 38.7 % See Below [facility] Work Phone: Comment on above: Reference Range: 36. 0 - 46.0 Hemoglobin (Bld) [Mass/Vol] 12.4 g/dL See Below [facility] Work Phone: Comment on above: Reference Range: 12. 0 - 16.0 MCHC (RBC) [Mass/Vol] 32.0 g/dL See Below [facility] Work Phone: Comment on above: Reference Range: 32. 0 - 36.0 MCV (RBC) [Entitic vol] 88 fL 80 - 100 [facility] Work Phone: Platelets (Bld) [#/Vol] 194 10*3/uL 150 - 450 [facility] Work Phone: RBC (Bld) [#/Vol] 4.42 {x10E12/L} See Below [facility] Work Phone: Comment on above: Reference Range: 4.0 0 - 5.20 WBC (Bld) [#/Vol] 5.6 10*3/uL 4.4 - 11.3 [facility] Work Phone: No Panel Informationon 04-25 69 {mL/min/1.73m2} >60 [facility] Work Phone: Comment on above: CALCULATIONS OF ARMOND MATED GFR ARE PERFORMED USING THE MDRD STUDY EQUATION FOR THE IDMS-TRACEABLE CREATININE METHODS. CLIN CHEM 2007;53:766-72 57 {mL/min/1.73m2} Abnormal >60 [facility] Work Phone: 0.0 {/100_WBC} 0.0-0.0 [facility] Work Phone: Otheron 11-15-2020 XR Ribs - left 3 views Interpreted by: KARINE CONCEPCION11/15/20 14:39MRN: [id number] Name: [facility] STUDY:RIBS, UNILATERAL, W PA CXR 3 VIEWS; 11/15/2020 1:48 pm INDICATION:Fall into pet store display onto RT side 7d ago.. COMPARISON:Chest radiograph 01/20/2016 ORDERING CLINICIAN:CHARLINE CLEMENTE FINDINGS:CARDIOMEDIASTI NAL SILHOUETTE:Cardiomedias tinal silhouette is normal in size and configuration. LUNGS:Lungs are clear. ABDOMEN:There are bilateral intrarenal calculi. 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 BONES:Five views right ribs: There is an acute fracture of the right 10thrib anterior laterally at the junction with the costal cartilage.There is a remote healed fracture of the right 6th rib. Status post ventral fusion lower cervical spine IMPRESSION:Acute right 10th rib fracture.Electronically signed by: KARINE CONCEPCION 11/15/20 14:39 Normal -[facility] Work Phone: Hematologyon 10-04-2020 Hematocrit (Bld) [Volume fraction] 38.4 % See Below [facility] Work Phone: Comment on above: Reference Range: 36. 0 - 46.0 Hemoglobin (Bld) [Mass/Vol] 11.8 g/dL below low threshold See Below [facility] Work Phone: Comment on above: Reference Range: 12. 0 - 16.0 MCV (RBC) [Entitic vol] 91 fL 80 - 100 [facility] Work Phone: [phone] Platelets (Bld) [#/Vol] 147 {x10E9/L} below low threshold 150 - 450 [facility] Work Phone: RBC (Bld) [#/Vol] 4.20 {x10E12/L} See Below [facility] Work Phone: Comment on above: Reference Range: 4.0 0 - 5.20 WBC (Bld) [#/Vol] 3.8 {x10E9/L} below low threshold 4.4 - 11.3 [facility] Work Phone: WBC (Bld) [#/Vol] 0.0 {/100_WBC} 0.0-0.0 [facility] Work Phone: Hemoglobin A1Con 10-04-2020 HbA1c (Bld) [Mass fraction] 5.8 % [facility] Work Phone: Comment on above: Diagnosis of Diabete s-Adults Non-Diabetic: < or = 5.6% Increased risk for developing diabetes: 5.7-6.4% Diagnostic of diabetes: > or = 6.5%. Monitoring of Diabetes Age (y) Therapeutic Goal (%) Adults: >18 <7.0 Pediatrics: 13-18 <7.5 7-12 <8.0 0- 6 7.5-8.5 [employer]. Diabetes Care 33(S1), Oct 2009. HbA1c (Bld) [Mass fraction] 120 {MG/DL} [facility] Work Phone: Lipid Panelon 10-04-2020 Cholesterol [Mass/Vol] 145 mg/dL 0 - 199 [facility] Work Phone: Comment on above: . AGE DESIRABLE BORD DEACON HIGH HIGH 0-19 Y 0 - 169 170 - 199 >/= 200 20-24 Y 0 - 189 190 - 224 >/= 225 >24 Y 0 - 199 200 - 239 >/= 240 All ranges are based on fasting samples. Specific therapeutic targets will vary based on patient-specific cardiac risk.. Pediatric guidelines reference:Pediatrics 2011, 128(S5). Adult guidelines reference: NCEP ATPIII Guidelines, KATHY 2001, 258:0626-97. Venipuncture immediately after or during the administration of Metamizole may lead to falsely low results. Testing should be performed immediately prior to Metamizole dosing. Cholesterol in HDL [Mass/Vol] 47.4 mg/dL [facility] Work Phone: Comment on above: . AGE VERY LOW LOW N ORMAL HIGH 0-19 Y < 35 < 40 40-45 ---- 20- 24 Y ---- < 40 >45 ---- >24 Y ---- < 40 40-60 >60. Cholesterol in LDL [Mass/Vol] 75 mg/dL 0 - 99 [facility] Work Phone: Comment on above: . NEAR BORD AGE GERALD RABLE OPTIMAL HIGH HIGH VERY HIGH 0-19 Y 0 - 109 --- 110-129 >/= 130 ---- 20-24 Y 0 - 119 --- 120-159 >/= 160 ---- >24 Y 0 - 99 100-129 130-159 160-189 >/=190. Cholesterol.total/Cho lesterol in HDL [Mass ratio] 3.1 {ratio} [facility] Work Phone: Comment on above: REF VALUESDESIRABLE < 3.4HIGH RISK > 5.0 Triglyceride [Mass/Vol] 111 mg/dL 0 - 149 [facility] Work Phone: Comment on above: . AGE DESIRABLE BORD DEACON HIGH HIGH VERY HIGH 0 D-90 D 19 - 174 ---- ---- ----91 D- 9 Y 0 - 74 75 - 99 >/= 100 ---- 10-19 Y 0 - 89 90 - 129 >/= 130 ---- 20-24 Y 0 - 114 115 - 149 >/= 150 ---- >24 Y 0 - 149 150 - 199 200- 499 >/= 500. Venipuncture immediately after or during the administration of Metamizole may lead to falsely low results. Testing should be performed immediately prior to Metamizole dosing. Lipid Panel 22 mg/dL 0 - 40 [facility] Work Phone: Metabolic Panelon 10-04-2020 ALP [Catalytic activity/Vol] 85 U/L 33 - 136 [facility] Work Phone: Anion gap [Moles/Vol] 10 mmol/L 10 - 20 [facility] Work Phone: Bilirubin [Mass/Vol] 1.2 mg/dL 0.0 - 1.2 [facility] Work Phone: Calcium [Mass/Vol] 9.3 mg/dL 8.6 - 10.6 [facility] Work Phone: Chloride [Moles/Vol] 109 mmol/L above high threshold 98 - 107 [facility] Work Phone: CO2 [Moles/Vol] 27 mmol/L 21 - 32 [facility] Work Phone: Creatinine [Mass/Vol] 0.89 mg/dL See Below [facility] Work Phone: Comment on above: Reference Range: 0.5 0 - 1.05 Glucose [Mass/Vol] 88 mg/dL 74 - 99 [facility] Work Phone: Potassium [Moles/Vol] 3.4 mmol/L below low threshold 3.5 - 5.3 [facility] Work Phone: Protein [Mass/Vol] 5.7 g/dL below low threshold 6.4 - 8.2 [facility] Work Phone: Sodium [Moles/Vol] 143 mmol/L 136 - 145 [facility] Work Phone: Urea nitrogen [Mass/Vol] 17 mg/dL 6 - 23 [facility] Work Phone: Otheron 10-04-2020 Albumin BCP dye [Mass/Vol] 3.6 g/dL 3.4 - 5.0 [facility] Work Phone: Albumin Ql (U) 9.1 mg/L See Below [facility] Work Phone: Comment on above: Reference Range: Not Established ALT With P-5'-P [Catalytic activity/Vol] 22 U/L 7 - 45 [facility] Work Phone: Comment on above: Patients treated wit h Sulfasalazine may generate falsely decreased results for ALT. AST With P-5'-P [Catalytic activity/Vol] 26 U/L 9 - 39 [facility] Work Phone: Erythrocyte distribution width (RBC) [Ratio] 14.1 % See Below [facility] Work Phone: Comment on above: Reference Range: 11. 5 - 14.5 MCHC (RBC) [Mass/Vol] 30.7 g/dL below low threshold See Below [facility] Work Phone: Comment on above: Reference Range: 32. 0 - 36.0 >60 >60 [facility] Work Phone: Comment on above: CALCULATIONS OF ARMOND MATED GFR ARE PERFORMED USING THE MDRD STUDY EQUATION FOR THE IDMS-TRACEABLE CREATININE METHODS. CLIN CHEM 2007;53:766-72 Thyroidon 10-04-2020 TSH Qn 3.38 {mIU/L} See Below [facility] Work Phone: Comment on above: Reference Range: 0.4 4 - 3.98 TSH testing is performed using different testing methodology at [facility] than at other [facility]. Direct result comparisons should only be made within the same method. Urinalysison 10-04-2020 Albumin/Creatinine DL <= 20 mg/L (U) [Mass ratio] 7.8 {ug/mg_crt} 0.0 - 30.0 [facility] Work Phone: Creatinine (U) [Mass/Vol] 116.0 mg/dL See Below [facility] Work Phone: Comment on above: Reference Range: 20. 0 - 320.0 Vitamin D 25-Hydroxyon 10-04 Calcidiol [Mass/Vol] 42 ng/mL [facility] Work Phone: Comment on above: .DEFICIENCY: < 20 NG /MLINSUFFICIENCY: 20-29 NG/MLSUFFICIENCY: 30-100 NG/MLTHIS ASSAY ACCURATELY QUANTIFIES THE SUM OFVITAMIN D3, 25-HYDROXY AND VIT D2,25-HYDROXY. Otheron 08-01-2020 XR Ribs - left 3 views Interpreted by: LAURIE 00:57MRN: [id number] Name: [facility] HOUSE STUDY:RIBS, UNILATERAL, W PA CXR 3 VIEWS; 08/01/2020 3:54 pm INDICATION:injury,pain. COMPARISON:Prior chest exam from 2003. ORDERING CLINICIAN:MALCOLM VARGAS FINDINGS:AP view of the chest and two views of the left-sided rib, provided. Limited evaluation for nondisplaced fracture due to osteopenia. Noevidence of acute displaced fracture. Note made of hardware in thelower cervical spine. The cardiac silhouette is normal in size. No focal airspaceconsolidation or pleural effusion.No pneumothorax. Note made of cholecystectomy clips. IMPRESSION:Limited evaluation due to osteopenia. No evidence of acute displacedfracture. If there is persistent concern, CT can be performed.No airspace consolidation or pleural effusion. Electronically signed by: ANA CRISTINA 08/02/20 00:57 [facility] Work Phone: Mamm - Screening Mammogram w / Tomosynthesison 07-25-2020 MG Breast screening Interpreted by: PLACIDO CORNELL07/29/20 13:12MRN: [id number] Name: [facility] HOUSE STUDY:DIGITAL MAMM SCREENING W/ IRAM; 07/25/2020 1:24 pm ORDERING CLINICIAN:ERICKA VILLELA INDICATION:Screening. COMPARISON:04/24/2019 04/07/2018 03/25/2017 FINDINGS:2D and tomosynthesis images were reviewed at 1 mm slice thickness. The breast tissue is almost entirely fatty. No suspicious masses orcalcifications are identified. IMPRESSION:No mammographic evidence of malignancy. BI-RADS CATEGORY: Category: 1 - Negative.Recommendation : 1 Year Screening. For any future breast imaging appointments, please call [phone]([id number]). Patient letter sent SNORM Electronically signed by: JERALD CORNELL 07/29/20 13:12 [facility]: Comment on above: ORDER REVISED TO A D IGITAL MAMM SCREENING W/ IRAM BY RADIOLOGIST; Original Order Number: [id number] Clinical Summary: HMSPatient IDon 12-11-2019 QCO [facility] Work Phone: Office Visit: New - visi t with practice, Rm: 1on 12-11-2019 NEGATED: Highlighted rowTobacco smoking status NHIS Tobacco smoking status NHIS [facility] Work Phone: Otheron 11-23-2019 XR Wrist - bilateral 3 views Interpreted by: LECBKT62/08/20 06:00MRN: [id number] Name: HARSHROXYLL STUDY:WRIST COMPLT; MIN 3 VIEWS; 11/23/2019 2:38 pm INDICATION:right wrist pain. COMPARISON:None. ORDERING CLINICIAN:ERICKA VILLELA FINDINGS:Right wrist, three views There is severe diffuse osteopenia which limits the study. Withinthis limitation no acute fracture seen. Deformity of the distal ulnamay relate to prior injury or may be congenital. There ishyperextension at the wrist. There is moderate degenerative [id number] CMC, triscaphe and radiocarpal articulations. IMPRESSION:Severe diffuse osteopenia which limits the study. Within thislimitation no acute fracture seen. Remote distal ulnar fracturedeformity.Degen erative changesElectronically signed by: CHIQUI 11/25/19 06:00 Normal [facility] Work Phone: XR Wrist - bilateral 3 views Please click on the link to view the study images Normal [facility] Work Phone: Otheron 08-15-2019 Amphetamines Screen Ql (U) Negative NEGATIVE [employer] Work Phone: Comment on above: CUTOFF LEVEL: 500 NG /ML Cross-reactivity has been reported with high concentrations of the following drugs: buproprion, chloroquine, chlorpromazine, ephedrine, mephentermine, fenfluramine, phentermine, phenylpropanolamine, pseudoephedrine, and propranolol. Benzoylecgonine Screen Ql (U) Negative NEGATIVE [facility] [employer] Phone: Comment on above: CUTOFF LEVEL: 150 NG /ML Methadone Screen Ql (U) Negative NEGATIVE [facility] [employer] Phone: Comment on above: CUTOFF LEVEL: 150 NG /ML The metabolite X-qqddm-njaugozsgohgwi (LAAM) is not detected by this method in concentrations that would be found in the urine of patients on LAAM therapy. Opiates Screen Ql (U) Negative NEGATIVE [facility] [employer] Phone: Comment on above: CUTOFF LEVEL: 300 NG /ML The opiate screen does not detect fentanyl, meperidine, or tramadol. Oxycodone is not consistently detected (refer to Oxycodone Screen, Urine result). Oxycodone+Oxymorphone Screen Ql (U) Negative NEGATIVE [facility] [employer] Phone: Comment on above: CUTOFF LEVEL: 100 NG /ML This test will accurately detect both oxycodone and oxymorphone. SEE BELOW [facility] [employer] Phone: Comment on above: Drug screen results are presumptive and should not be used to assess compliance with prescribed medication. Contact the performing [facility] laboratory to add-on definitive confirmatory testing if clinically indicated. .Toxicology screening results are reported qualitatively. The concentration must be greater than or equal to the cutoff to be reported as positive. The concentration at which the screening test can detect an individual drug or metabolite varies. The absence of expected drug(s) and/or drug metabolite(s) may indicate non-compliance, inappropriate timing of specimen collection relative to drug administration, poor drug absorption, diluted/adulterated urine, or limitations of testing. For medical purposes only; not valid for forensic use. .Interpretive questions should be directed to the laboratory medical directors. Urinalysison 08-15-2019 Barbiturates Screen Ql (U) Negative NEGATIVE [facility] [employer] Phone: Comment on above: CUTOFF LEVEL: 200 NG /ML Benzodiazepines Ql (U) Negative NEGATIVE [facility] [employer] Work Phone: Comment on above: CUTOFF LEVEL: 200 NG /ML Cannabinoids Screen Ql (U) Negative NEGATIVE [facility] [employer] Work Phone: Comment on above: CUTOFF LEVEL: 50 NG/ ML Phencyclidine Ql (U) Negative NEGATIVE [facility] [employer] Work Phone: Comment on above: CUTOFF LEVEL: 25 NG/ ML Cross-reactivity has been reported with dextromethorphan. Vital Signs Date Time Vital Sign Value Performing Clinician Facility 04-02-2025 14:03-0400 Body mass index (BMI) [Ratio] 30.18 kg/m2 Jovon Mckeon MD Work Phone: [facility] 04-02-2025 14:03-0400 Body weight 74.84 kg Jovon Mckeon MD Work Phone: [facility] 03-07-2025 09:34-0400 Body mass index (BMI) [Ratio] 30.18 kg/m2 [employer] PA-C Work Phone: [facility] 03-07-2025 09:34-0400 Body temperature 96.01 [degF] [employer] PA-C Work Phone: [facility] 03-07-2025 09:34-0400 Body weight 74.84 kg [employer] PA-C Work Phone: [facility] 03-07-2025 09:34-0400 Diastolic blood pressure 81 mm[Hg] [employer] PA-C Work Phone: [facility] 03-07-2025 09:34-0400 Heart rate 78 /min [employer] PA-C Work Phone: [facility] 03-07-2025 09:34-0400 Respiratory rate 16 /min [employer] PA-C Work Phone: [facility] 03-07-2025 09:34-0400 SaO2% (BldA) [Mass fraction] 93 % Claude Thompson PA-C Work Phone: [facility] 03-07-2025 09:34-0400 Systolic blood pressure 118 mm[Hg] Claude Thompson PA-C Work Phone: [facility] 03-01-2025 11:18-0400 Body height 157.5 cm Caritoavinash Wigginsa-Yohana PA-C Work Phone: [facility] 03-01-2025 11:18-0400 Body mass index (BMI) [Ratio] 31.64 kg/m2 Yirka Javed-Yohana PA-C Work Phone: [facility] 03-01-2025 11:18-0400 Body weight 78.47 kg Caritorka Javed-Yohana PA-C Work Phone: [facility] 03-01-2025 11:18-0400 Respiratory rate 18 /min Caritorka Javed-Yohana PA-C Work Phone: [facility] 02-17-2025 13:27-0400 Body height 157.5 cm Saima Steidl COLLEGE TEACHER-[employer]ANT [employer]IABILITY ENGINEER Work Phone: [facility] 02-17-2025 13:27-0400 Body mass index (BMI) [Ratio] 31.09 kg/m2 Saima Steidl COLLEGE TEACHER-PLANT RELIABILITY ENGINEER Work Phone: [facility] 02-17-2025 13:27-0400 Body temperature 96.91 [degF] Saima Steidl COLLEGE TEACHER-PLANT RELIABILITY ENGINEER Work Phone: [facility] 02-17-2025 13:27-0400 Body weight 77.11 kg Saima Steidl COLLEGE TEACHER-PLANT RELIABILITY ENGINEER Work Phone: [facility] 02-17-2025 13:27-0400 Diastolic blood pressure 81 mm[Hg] Saima Steidl COLLEGE TEACHER-PLANT RELIABILITY ENGINEER Work Phone: [facility] 02-17-2025 13:27-0400 Heart rate 82 /min Saima Steidl COLLEGE TEACHER-PLANT RELIABILITY ENGINEER Work Phone: [facility] 02-17-2025 13:27-0400 Respiratory rate 18 /min Saima Steidl COLLEGE TEACHER-PLANT RELIABILITY ENGINEER Work Phone: [facility] 02-17-2025 13:27-0400 SaO2% (BldA) [Mass fraction] 95 % Saima Steidl COLLEGE TEACHER-PLANT RELIABILITY ENGINEER Work Phone: [facility] 02-17-2025 13:27-0400 Systolic blood pressure 128 mm[Hg] Saima Steidl COLLEGE TEACHER-PLANT RELIABILITY ENGINEER Work Phone: [facility] 01-10-2025 10:29-0400 Body height 157.[address] 01-10-2025 10:29-0400 Body mass index (BMI) [Ratio] 32.37 kg/m2 [address] 01-10-2025 10:29-0400 Body weight 80.[address] 10-25-2024 09:36-0500 Body height 157.5 cm Ericka Villela MD Work Phone: [facility] 10-25-2024 09:36-0500 Body mass index (BMI) [Ratio] 32.04 kg/m2 Ericka Villela MD Work Phone: [facility] 10-25-2024 09:36-0500 Body weight 79.47 kg Ericka Villela MD Work Phone: [facility] 10-25-2024 09:36-0500 Diastolic blood pressure 80 mm[Hg] Ericka Villela MD Work Phone: [facility] 10-25-2024 09:36-0500 Heart rate 90 /min Ericka Villela MD Work Phone: [facility] 10-25-2024 09:36-0500 SaO2% (BldA) [Mass fraction] 98 % Ericka Villela MD Work Phone: [facility] 10-25-2024 09:36-0500 Systolic blood pressure 120 mm[Hg] Ericka Villela MD Work Phone: [facility] 09-15-2024 15:49-0500 Body mass index (BMI) [Ratio] 30.73 kg/m2 Claude Emmanuel PA-C Work Phone: [facility] 09-15-2024 15:49-0500 Body temperature 97 [degF] Claude Emmanuel PA-C Work Phone: [facility] 09-15-2024 15:49-0500 Body weight 76.2 kg Claude Emmanuel PA-C Work Phone: [facility] 09-15-2024 15:49-0500 Diastolic blood pressure 85 mm[Hg] Claude Emmanuel PA-C Work Phone: [facility] 09-15-2024 15:49-0500 Heart rate 92 /min Claude Emmanuel PA-C Work Phone: [facility] 09-15-2024 15:49-0500 Respiratory rate 16 /min Claude Emmanuel PA-C Work Phone: [facility] 09-15-2024 15:49-0500 SaO2% (BldA) [Mass fraction] 95 % Claude Emmanuel PA-C Work Phone: [facility] 09-15-2024 15:49-0500 Systolic blood pressure 134 mm[Hg] Claude Emmanuel PA-C Work Phone: [facility] 08-24-2024 11:05-0500 Body height 157.5 cm Ericka Villela MD Work Phone: [facility] 08-24-2024 11:05-0500 Body mass index (BMI) [Ratio] 32.52 kg/m2 Ericka Villela MD Work Phone: [facility] 08-24-2024 11:05-0500 Body weight 80.65 kg Ericka Villela MD Work Phone: [facility] 08-24-2024 11:05-0500 Diastolic blood pressure 78 mm[Hg] Ericka Villela MD Work Phone: [facility] 08-24-2024 11:05-0500 Heart rate 72 /min Ericka Villela MD Work Phone: [facility] 08-24-2024 11:05-0500 SaO2% (BldA) [Mass fraction] 98 % Ericka Villela MD Work Phone: [facility] 08-24-2024 11:05-0500 Systolic blood pressure 115 mm[Hg] Ericka Villela MD Work Phone: [facility] 08-08-2024 11:32-0400 Body height 157.5 cm Lauri Sahu COLLEGE TEACHER-PLANT RELIABILITY ENGINEER Work Phone: [facility] 08-08-2024 11:32-0400 Body mass index (BMI) [Ratio] 32.5 kg/m2 Lauri Sahu COLLEGE TEACHER-PLANT RELIABILITY ENGINEER Work Phone: [facility] 08-08-2024 11:32-0400 Body temperature 97 [degF] Lauri Sahu COLLEGE TEACHER-PLANT RELIABILITY ENGINEER Work Phone: [facility] 08-08-2024 11:32-0400 Body weight 80.6 kg Lauri Sahu COLLEGE TEACHER-PLANT RELIABILITY ENGINEER Work Phone: [facility] 05-04-2024 14:23-0400 Diastolic blood pressure 78 mm[Hg] Ericka Villela MD Work Phone: [facility] 05-04-2024 14:23-0400 Systolic blood pressure 120 mm[Hg] Ericka Villela MD Work Phone: [facility] 05-04-2024 14:12-0400 Body height 157.5 cm Ericka Villela MD Work Phone: [facility] 05-04-2024 14:12-0400 Body mass index (BMI) [Ratio] 30.91 kg/m2 Ericka Villela MD Work Phone: [facility] 05-04-2024 14:12-0400 Body weight 76.66 kg Ericka Villela MD Work Phone: [facility] 05-04-2024 14:12-0400 Heart rate 78 /min Ericka Villela MD Work Phone: [facility] 05-04-2024 14:12-0400 SaO2% (BldA) [Mass fraction] 96 % Ericka Villela MD Work Phone: [facility] 04-28-2024 15:29-0400 Body height 154.9 cm Guillaume Merrill MD Work Phone: [facility] 04-28-2024 15:29-0400 Body mass index (BMI) [Ratio] 32.07 kg/m2 Guillaume Merrill MD Work Phone: [facility] 04-28-2024 15:29-0400 Body weight 77 kg Guillaume Merrill MD Work Phone: [facility] 04-12-2024 10:08-0400 Body height 157.5 cm Jovon Mckeon MD Work Phone: [facility] 04-12-2024 10:08-0400 Body mass index (BMI) [Ratio] 30.54 kg/m2 Jovon Mckeon MD Work Phone: [facility] 04-12-2024 10:08-0400 Body temperature 97.3 [degF] Jovon Mckeon MD Work Phone: [facility] 04-12-2024 10:08-0400 Body weight 75.75 kg Jovon Mckeon MD Work Phone: [facility] 04-12-2024 10:08-0400 Diastolic blood pressure 72 mm[Hg] Jovon Mckeon MD Work Phone: [facility] 04-12-2024 10:08-0400 Heart rate 71 /min Jovon Mckeon MD Work Phone: [facility] 04-12-2024 10:08-0400 Respiratory rate 18 /min Jovon Mckeon MD Work Phone: [facility] 04-12-2024 10:08-0400 Systolic blood pressure 115 mm[Hg] Jovon Mckeon MD Work Phone: [facility] 01-24-2024 11:51-0400 Body height 157.5 cm Hannah Elizabeth MD Work Phone: [facility] 01-24-2024 11:51-0400 Body mass index (BMI) [Ratio] 31.73 kg/m2 Hannah Elizabeth MD Work Phone: [facility] 01-24-2024 11:51-0400 Body temperature 96.3 [degF] Hannah Elizabeth MD Work Phone: [facility] 01-24-2024 11:51-0400 Body weight 78.7 kg Hannah Elizabeth MD Work Phone: [facility] 01-06-2024 13:12-0400 Body height 157.[address] 01-06-2024 13:12-0400 Body mass index (BMI) [Ratio] 30.18 kg/m2 [address] 01-06-2024 13:12-0400 Body weight 74.[address] 12-30-2023 14:46-0400 Body height 157.5 cm Ericka Villela MD Work Phone: [facility] 12-30-2023 14:46-0400 Body mass index (BMI) [Ratio] 31.57 kg/m2 Ericka Villela MD Work Phone: [facility] 12-30-2023 14:46-0400 Body weight 78.29 kg Ericka Villela MD Work Phone: [facility] 12-30-2023 14:46-0400 Diastolic blood pressure 69 mm[Hg] Ericka Villela MD Work Phone: [facility] 12-30-2023 14:46-0400 Heart rate 77 /min Ericka Villela MD Work Phone: [facility] 12-30-2023 14:46-0400 SaO2% (BldA) [Mass fraction] 97 % Ericka Villela MD Work Phone: [facility] 12-30-2023 14:46-0400 Systolic blood pressure 117 mm[Hg] Ericka Villela MD Work Phone: [facility] 12-20-2023 12:45-0500 Diastolic blood pressure 70 mm[Hg] Hannah Elizabeth MD Work Phone: [facility] 12-20-2023 12:45-0500 Heart rate 87 /min Hannah Elizabeth MD Work Phone: [facility] 12-20-2023 12:45-0500 Respiratory rate 16 /min Hannah Elizabeth MD Work Phone: [facility] 12-20-2023 12:45-0500 SaO2% (BldA) [Mass fraction] 95 % Hannah Elizabeth MD Work Phone: [facility] 12-20-2023 12:45-0500 Systolic blood pressure 125 mm[Hg] Hannah Elizabeth MD Work Phone: [facility] 12-20-2023 12:36-0500 Body temperature 97.3 [degF] Hannah Elizabeth MD Work Phone: [facility] 10-28-2023 10:38-0500 Body height 154.9 cm Ericka Villela MD Work Phone: [facility] 10-28-2023 10:38-0500 Body mass index (BMI) [Ratio] 31.93 kg/m2 Ericka Villela MD Work Phone: [facility] 10-28-2023 10:38-0500 Body weight 76.66 kg Ericka Villela MD Work Phone: [facility] 10-28-2023 10:38-0500 Diastolic blood pressure 76 mm[Hg] Ericka Villela MD Work Phone: [facility] 10-28-2023 10:38-0500 Heart rate 79 /min Ericka Villela MD Work Phone: [facility] 10-28-2023 10:38-0500 SaO2% (BldA) [Mass fraction] 97 % Ericka Villela MD Work Phone: [facility] 10-28-2023 10:38-0500 Systolic blood pressure 112 mm[Hg] Ericka Villela MD Work Phone: [facility] 09-22-2023 11:51-0500 Diastolic blood pressure 63 mm[Hg] Iza Sams MD Work Phone: [facility] 09-22-2023 11:51-0500 Heart rate 68 /min Iza Sams MD Work Phone: [facility] 09-22-2023 11:51-0500 Respiratory rate 16 /min Iza Sams MD Work Phone: [facility] 09-22-2023 11:51-0500 SaO2% (BldA) [Mass fraction] 95 % Iza Sams MD Work Phone: [facility] 09-22-2023 11:51-0500 Systolic blood pressure 100 mm[Hg] Iza Sams MD Work Phone: [facility] 09-22-2023 11:34-0500 Body temperature 96.8 [degF] Iza Sams MD Work Phone: [facility] 09-06-2023 11:00-0500 Body height 154.9 cm Hannah Elizabeth MD Work Phone: [facility] 09-06-2023 11:00-0500 Body mass index (BMI) [Ratio] 30.8 kg/m2 Hannah Elizabeth MD Work Phone: [facility] 09-06-2023 11:00-0500 Body weight 73.94 kg Hannah Elizabeth MD Work Phone: [facility] 08-31-2023 08:56-0500 Body height 154.9 cm Hannah Elizabeth MD Work Phone: [facility] 08-31-2023 08:56-0500 Body mass index (BMI) [Ratio] 30.8 kg/m2 Hannah Elizabeth MD Work Phone: [facility] 08-31-2023 08:56-0500 Body weight 73.94 kg Hannah Elizabeth MD Work Phone: [facility] 08-19-2023 10:30-0400 Body height 153.7 cm Ericka Villela MD Work Phone: [facility] Comment on above: w/o shoes 08-19-2023 10:30-0400 Body mass index (BMI) [Ratio] 32.31 kg/m2 Ericka Villela MD Work Phone: [facility] 08-19-2023 10:30-0400 Body weight 76.3 kg Ericka Villela MD Work Phone: [facility] 08-19-2023 10:30-0400 Diastolic blood pressure 78 mm[Hg] Ericka Villela MD Work Phone: [facility] 08-19-2023 10:30-0400 Heart rate 77 /min Ericka Villela MD Work Phone: [facility] 08-19-2023 10:30-0400 SaO2% (BldA) [Mass fraction] 99 % Ericka Villela MD Work Phone: [facility] 08-19-2023 10:30-0400 Systolic blood pressure 116 mm[Hg] Ericka Villela MD Work Phone: [facility] 06-02-2023 10:16-0400 Body height 157.5 cm Ericka Villela MD Work Phone: [facility] 06-02-2023 10:16-0400 Body mass index (BMI) [Ratio] 30.25 kg/m2 Ericka Villela MD Work Phone: [facility] 06-02-2023 10:16-0400 Body weight 75.03 kg Ericka Villela MD Work Phone: [facility] 06-02-2023 10:16-0400 Diastolic blood pressure 79 mm[Hg] Ericka Villela MD Work Phone: [facility] 06-02-2023 10:16-0400 Heart rate 88 /min Ericka Villela MD Work Phone: [facility] 06-02-2023 10:16-0400 SaO2% (BldA) [Mass fraction] 99 % Ericka Villela MD Work Phone: [facility] 06-02-2023 10:16-0400 Systolic blood pressure 123 mm[Hg] Ericka Villela MD Work Phone: [facility] 02-24-2023 11:43-0400 Body height 157.5 cm Ericka Villela MD Work Phone: [facility] 02-24-2023 11:43-0400 Body mass index (BMI) [Ratio] 30.91 kg/m2 Ericka Villela MD Work Phone: [facility] 02-24-2023 11:43-0400 Body weight 76.66 kg Ericka Villela MD Work Phone: [facility] 02-24-2023 11:43-0400 Diastolic blood pressure 78 mm[Hg] Ericka Villela MD Work Phone: [facility] 02-24-2023 11:43-0400 Heart rate 63 /min Ericka Villela MD Work Phone: [facility] 02-24-2023 11:43-0400 SaO2% (BldA) [Mass fraction] 98 % Ericka Villela MD Work Phone: [facility] 02-24-2023 11:43-0400 Systolic blood pressure 124 mm[Hg] Ericka Villela MD Work Phone: [facility] 12-31-2022 12:28-0400 6 1 Ericka Villela Work Phone: OG[facility]Bysfcjfhvq-Dwfs [facility] [address] Work Phone: Comment on above: [facility] 12-31-2022 12:28-0400 16 1 Erickakingsley [employer] Work Phone: FV-Dwemosihbt-Kfaa na [address] Work Phone: Comment on above: [facility] 12-31-2022 11:36-0400 Body height 157.48 cm Ericka Villela Work Phone: PV-Riapujifhe-Nprt [facility] [address] Work Phone: 12-31-2022 11:36-0400 Body mass index (BMI) [Ratio] 29.44 kg/m2 Ericka Villela Work Phone: HQ-Txrwzqaygw-Gark [facility] [address] Work Phone: 12-31-2022 11:36-0400 Body surface area Derived from formula 1.74 m2 Erickakingsley [employer] Work Phone: HJ-Fupzkkniju-Yyvd na [address] Work Phone: 12-31-2022 11:36-0400 Body weight 73 kg Ericka M Manohar Work Phone: VC-Qrxglpirik-Qpii na [address] Work Phone: 12-31-2022 11:36-0400 Diastolic blood pressure 72 mm[Hg] Ericka Adonis Manohar Work Phone: UU-Kfdoqjusis-Fsxx na [address] Work Phone: 12-31-2022 11:36-0400 Heart rate 82 /min Ericka M Manohar Work Phone: CN-Yhfsacetsh-Rgcp na [address] Work Phone: 12-31-2022 11:36-0400 Systolic blood pressure 128 mm[Hg] Ericka Adonis Manohar Work Phone: CJ-Rkyvwxqdeu-Hnrn na [address] Work Phone: 12-24-2022 11:02-0500 Diastolic blood pressure 72 mm[Hg] Ericka Villela MD Work Phone: [facility] 12-24-2022 11:02-0500 Systolic blood pressure 124 mm[Hg] Ericka Villela MD Work Phone: [facility] 12-24-2022 10:30-0500 Body height 157.5 cm Ericka Villela MD Work Phone: [facility] 12-24-2022 10:30-0500 Body mass index (BMI) [Ratio] 31.44 kg/m2 Ericka Villela MD Work Phone: [facility] 12-24-2022 10:30-0500 Body weight 77.97 kg Ericka Villela MD Work Phone: [facility] 12-24-2022 10:30-0500 Heart rate 84 /min Ericka Villela MD Work Phone: [facility] 12-24-2022 10:30-0500 SaO2% (BldA) [Mass fraction] 99 % Ericka Villela MD Work Phone: [facility] 10-20-2022 13:08-0500 Body mass index (BMI) [Ratio] 28.35 kg/m2 Ericka Villela Work Phone: [facility] Work Phone: 10-20-2022 13:08-0500 Body surface area Derived from formula 1.72 m2 Ericka Villela Work Phone: [facility] Work Phone: 10-20-2022 13:08-0500 Body temperature 97.1 [degF] Ericka Villela Work Phone: [facility] Work Phone: 10-20-2022 13:08-0500 Body weight 70.31 kg Ericka Villela Work Phone: [facility] Work Phone: 10-20-2022 13:08-0500 Diastolic blood pressure 89 mm[Hg] Ericka Villela Work Phone: [facility] Work Phone: 10-20-2022 13:08-0500 Heart rate 62 /min Ericka Villela Work Phone: [facility] Work Phone: 10-20-2022 13:08-0500 Respiratory rate 14 /min Ericka Villela Work Phone: [facility] Work Phone: 10-20-2022 13:08-0500 SaO2% (BldA) [Mass fraction] 95 % Ericka Villeal Work Phone: [facility] Work Phone: 10-20-2022 13:08-0500 Systolic blood pressure 135 mm[Hg] Ericka Villela Work Phone: [facility] Work Phone: 09-03-2022 11:27-0500 Body mass index (BMI) [Ratio] 31.32 kg/m2 Ericka Villela Work Phone: [facility] [employer] Work Phone: 09-03-2022 11:27-0500 Body surface area Derived from formula 1.79 m2 Ericka Villela Work Phone: [facility] [employer] Work Phone: 09-03-2022 11:27-0500 Body weight 77.68 kg Ericka Villela Work Phone: [facility] [employer] Work Phone: 09-03-2022 11:27-0500 Diastolic blood pressure 74 mm[Hg] Ericka Villela Work Phone: [facility] [employer] Work Phone: 09-03-2022 11:27-0500 Heart rate 64 /min Ericka Villela Work Phone: [facility] [employer] Work Phone: 09-03-2022 11:27-0500 SaO2% (BldA) [Mass fraction] 99 % Ericka Villela Work Phone: [facility] [employer] Work Phone: 09-03-2022 11:27-0500 Systolic blood pressure 124 mm[Hg] Ericka Villela Work Phone: [facility] [employer] Work Phone: 05-28-2022 10:54-0400 Body mass index (BMI) [Ratio] 30.06 kg/m2 Ericka Villela Work Phone: [facility] [employer] Work Phone: 05-28-2022 10:54-0400 Body surface area Derived from formula 1.76 m2 Ericka Villela Work Phone: [facility] Work Phone: 05-28-2022 10:54-0400 Body weight 74.56 kg Ericka Villela Work Phone: [facility] Work Phone: 05-28-2022 10:54-0400 Diastolic blood pressure 78 mm[Hg] Ericka Villela Work Phone: [facility] Work Phone: 05-28-2022 10:54-0400 Heart rate 71 /min Ericka Villela Work Phone: [facility] Work Phone: 05-28-2022 10:54-0400 SaO2% (BldA) [Mass fraction] 98 % Ericka Villela Work Phone: [facility] Work Phone: 05-28-2022 10:54-0400 Systolic blood pressure 114 mm[Hg] Ericka Villela Work Phone: [facility] Work Phone: 04-29-2022 11:28-0400 Body mass index (BMI) [Ratio] 30.37 kg/m2 Ericka Villela Work Phone: [facility] Work Phone: 04-29-2022 11:28-0400 Body surface area Derived from formula 1.77 m2 Ericka Villela Work Phone: [facility] Work Phone: 04-29-2022 11:28-0400 Body weight 75.32 kg Ericka Villela Work Phone: [facility] Work Phone: 04-29-2022 11:28-0400 Diastolic blood pressure 75 mm[Hg] Ericka Villela Work Phone: [facility] Work Phone: 04-29-2022 11:28-0400 Heart rate 68 /min Ericka Villela Work Phone: [facility] Work Phone: 04-29-2022 11:28-0400 SaO2% (BldA) [Mass fraction] 99 % Ericka Villela Work Phone: [facility] Work Phone: 04-29-2022 11:28-0400 Systolic blood pressure 117 mm[Hg] Ericka Villela Work Phone: [facility] Work Phone: 03-24-2022 11:25-0400 Body mass index (BMI) [Ratio] 30.91 kg/m2 Ericka Villela Work Phone: [facility] Work Phone: 03-24-2022 11:25-0400 Body surface area Derived from formula 1.78 m2 Ericka Villela Work Phone: [facility] Work Phone: 03-24-2022 11:25-0400 Body temperature 98 [degF] Ericka Villela Work Phone: [facility] [employer] Work Phone: 03-24-2022 11:25-0400 Body weight 76.66 kg Ericka Villela Work Phone: [facility] Work Phone: 03-24-2022 11:25-0400 Diastolic blood pressure 80 mm[Hg] Ericka Villela Work Phone: [facility] Work Phone: 03-24-2022 11:25-0400 Heart rate 80 /min Ericka Villela Work Phone: [facility] Work Phone: 03-24-2022 11:25-0400 SaO2% (BldA) [Mass fraction] 98 % Ericka Villela Work Phone: [facility] Work Phone: 03-24-2022 11:25-0400 Systolic blood pressure 127 mm[Hg] Ericka Villela Work Phone: [facility] Work Phone: 02-18-2022 09:53-0400 Body height 157.48 cm Ericka Villela Work Phone: [facility] Work Phone: 02-18-2022 09:53-0400 Body mass index (BMI) [Ratio] 31.28 kg/m2 Ericka Villela Work Phone: GD[facility]Tjtutokxj-JXWHY [facility] Work Phone: 02-18-2022 09:53-0400 Body surface area Derived from formula 1.79 m2 Ericka Villela Work Phone: YV-Syghjepsl-OQCFY [facility] Work Phone: 02-18-2022 09:53-0400 Body weight 77.57 kg Ericka Villela Work Phone: DL-Ivbvbkdgi-UPMZC [facility] Work Phone: 02-18-2022 09:53-0400 Diastolic blood pressure 70 mm[Hg] Ericka Villela Work Phone: UL-Hgimebnae-LHSNK [facility] Work Phone: 02-18-2022 09:53-0400 Heart rate 76 /min Ericka Villela Work Phone: AF-Ojychtstp-RUSOF [facility] Work Phone: 02-18-2022 09:53-0400 Respiratory rate 16 /min Ericka Villela Work Phone: IZ-Jcqagbsts-MTQKK [facility] Work Phone: 02-18-2022 09:53-0400 Systolic blood pressure 118 mm[Hg] Ericka Villela Work Phone: [facility] Work Phone: 01-01-2022 11:06-0400 Body mass index (BMI) [Ratio] 30.91 kg/m2 Ericka Villela Work Phone: [facility] Work Phone: 01-01-2022 11:06-0400 Body surface area Derived from formula 1.78 m2 Ericka Villela Work Phone: [facility] Work Phone: 01-01-2022 11:06-0400 Body weight 76.66 kg Ericka Villela Work Phone: [facility] Work Phone: 01-01-2022 11:06-0400 Diastolic blood pressure 80 mm[Hg] Ericka Villela Work Phone: [facility] Work Phone: 01-01-2022 11:06-0400 Heart rate 71 /min Ericka Villela Work Phone: [facility] Work Phone: 01-01-2022 11:06-0400 Systolic blood pressure 123 mm[Hg] Ericka Villela Work Phone: [facility] Work Phone: 09-04-2021 11:06-0500 Body height 157.48 cm Ericka Villela Work Phone: [facility] Work Phone: 09-04-2021 11:06-0500 Body mass index (BMI) [Ratio] 29.26 kg/m2 Ericka Villela Work Phone: [facility] Work Phone: 09-04-2021 11:06-0500 Body surface area Derived from formula 1.74 m2 Ericka Villela Work Phone: [facility] Work Phone: 09-04-2021 11:06-0500 Body weight 72.58 kg Ericka Villela Work Phone: [facility] Work Phone: 09-04-2021 11:06-0500 Diastolic blood pressure 72 mm[Hg] Ericka Villela Work Phone: [facility] Work Phone: 09-04-2021 11:06-0500 Heart rate 77 /min Ericka Villela Work Phone: [facility] Work Phone: 09-04-2021 11:06-0500 Systolic blood pressure 103 mm[Hg] Ericka Villela Work Phone: [facility] Work Phone: 07-28-2021 11:59-0400 Body height 157.48 cm Ericka Villela Work Phone: [facility] Work Phone: 07-28-2021 11:59-0400 Body mass index (BMI) [Ratio] 28.72 kg/m2 Ericka Villela Work Phone: [facility] Work Phone: 07-28-2021 11:59-0400 Body surface area Derived from formula 1.72 m2 Ericka Villela Work Phone: [facility] Work Phone: 07-28-2021 11:59-0400 Body weight 71.22 kg Ericka Villela Work Phone: [facility] Work Phone: 07-28-2021 11:59-0400 Diastolic blood pressure 70 mm[Hg] Ericka Villela Work Phone: [facility] Work Phone: 07-28-2021 11:59-0400 Heart rate 79 /min Ericka Villela Work Phone: [facility] Work Phone: 07-28-2021 11:59-0400 Respiratory rate 16 /min Ericka Villela Work Phone: [facility] Work Phone: 07-28-2021 11:59-0400 Systolic blood pressure 97 mm[Hg] Ericka Villela Work Phone: [facility] Work Phone: 07-24-2021 14:02-0400 Diastolic blood pressure 63 mm[Hg] Rivera Tan MD Work Phone: [facility] Work Phone: 07-24-2021 14:02-0400 Heart rate 75 /min Rivera Tan MD Work Phone: [facility] Work Phone: 07-24-2021 14:02-0400 Respiratory rate 14 /min Rivera Tan MD Work Phone: [facility] Work Phone: 07-24-2021 14:02-0400 SaO2% (BldA) [Mass fraction] 100 % Rivera Tan MD Work Phone: [facility] Work Phone: 07-24-2021 14:02-0400 Systolic blood pressure 99 mm[Hg] Rivera Tan MD Work Phone: [facility] Work Phone: 07-24-2021 11:18-0400 Body height 157.5 cm Rivera Tan MD Work Phone: [facility] Work Phone: 07-24-2021 11:18-0400 Body mass index (BMI) [Ratio] 27.98 kg/m2 Rivera Tan MD Work Phone: [facility] Work Phone: 07-24-2021 11:18-0400 Body temperature 98.01 [degF] Rivera Tan MD Work Phone: [facility] Work Phone: 07-24-2021 11:18-0400 Body weight 69.4 kg Rivera Tan MD Work Phone: [facility] Work Phone: 04-30-2021 10:43-0400 Body height 157.48 cm Ericka Villela Work Phone: [facility] Work Phone: 04-30-2021 10:43-0400 Body mass index (BMI) [Ratio] 30 kg/m2 Ericka Villela Work Phone: [facility] Work Phone: 04-30-2021 10:43-0400 Body surface area Derived from formula 1.76 m2 Ericka Villela Work Phone: [facility] Work Phone: 04-30-2021 10:43-0400 Body weight 74.39 kg Ericka Villela Work Phone: [facility] Work Phone: 04-30-2021 10:43-0400 Diastolic blood pressure 84 mm[Hg] Ericka Villela Work Phone: [facility] Work Phone: 04-30-2021 10:43-0400 Heart rate 92 /min Ericka Villela Work Phone: [facility] Work Phone: 04-30-2021 10:43-0400 Systolic blood pressure 106 mm[Hg] Ericka Villela Work Phone: [facility] Work Phone: 04-02-2021 10:18-0400 Body height 157.48 cm Ericka Villela Work Phone: [facility] Work Phone: 04-02-2021 10:18-0400 Body mass index (BMI) [Ratio] 30.91 kg/m2 Ericka Villela Work Phone: [facility] Work Phone: 04-02-2021 10:18-0400 Body surface area Derived from formula 1.78 m2 Ericka Villela Work Phone: [facility] Work Phone: 04-02-2021 10:18-0400 Body weight 76.66 kg Ericka Villela Work Phone: [facility] Work Phone: 04-02-2021 10:18-0400 Diastolic blood pressure 73 mm[Hg] Ericka Villela Work Phone: [facility] Work Phone: 04-02-2021 10:18-0400 Heart rate 69 /min Ericka Villela Work Phone: [facility] Work Phone: 04-02-2021 10:18-0400 Systolic blood pressure 127 mm[Hg] Ericka Villela Work Phone: [facility] Work Phone: 11-15-2020 15:12-0500 BMI (Body Mass Index) 30.81 kg/m2 Ericka Villela [facility] Work Phone: 11-15-2020 15:12-0500 Body Temperature 97.3 [degF] Ericka Villela [facility] Work Phone: 11-15-2020 15:12-0500 Body weight 76.4 kg [facility]illela [facility] Work Phone: 11-15-2020 15:12-0500 BP Diastolic 77 mm[Hg] [facility]illela [facility] Work Phone: 11-15-2020 15:12-0500 BP Systolic 124 mm[Hg] [facility]illela [facility] Work Phone: 11-15-2020 15:12-0500 BSA (Body Surface Area) 1.78 m2 Ericka Villela [facility] Work Phone: 11-15-2020 15:12-0500 Height 157.48 cm Ericka Villela [facility] Work Phone: 11-15-2020 15:12-0500 Pulse (Heart Rate) 81 /min Ericka Villela [facility] Work Phone: 11-15-2020 15:12-0500 Pulse Oximetry 98 % Ericka Villela [facility] Work Phone: 11-15-2020 15:12-0500 Respiratory Rate 20 /min Ericka Villela [facility] Work Phone: 11-15-2020 15:12-0500 5 1 Ericka Villela [facility] Work Phone: Comment on above: Pain Scale 08-01-2020 16:57-0400 BMI (Body Mass Index) 29.63 kg/m2 Ericka Villela [facility] Work Phone: 08-01-2020 16:57-0400 Body Temperature 96.4 [degF] Ericka Vilella [facility] Work Phone: 08-01-2020 16:57-0400 Body weight 73.48 kg Ericka Villela [facility] Work Phone: 08-01-2020 16:57-0400 BP Diastolic 81 mm[Hg] Ericka Villela [facility] Work Phone: 08-01-2020 16:57-0400 BP Systolic 137 mm[Hg] Ericka Villela [facility] Work Phone: 08-01-2020 16:57-0400 BSA (Body Surface Area) 1.75 m2 Ericka Villela [facility] Work Phone: 08-01-2020 16:57-0400 Height 157.48 cm Ericka Villela [facility] Work Phone: 08-01-2020 16:57-0400 Pulse (Heart Rate) 67 /min Ericka Villela [facility] Work Phone: 08-01-2020 16:57-0400 Pulse Oximetry 98 % Ericka Villela [facility] Work Phone: 08-01-2020 16:57-0400 Respiratory Rate 16 /min Ericka Villela [facility] Work Phone: 08-01-2020 16:57-0400 8 1 Ericka Villela [facility] Work Phone: Comment on above: Pain Scale 11-23-2019 15:45-0500 BMI (Body Mass Index) 31.48 kg/m2 Ericka Villela [facility] Work Phone: 11-23-2019 15:45-0500 Body weight 78.06 kg Ericka Villela [facility] Work Phone: 11-23-2019 15:45-0500 BP Diastolic 78 mm[Hg] Ericka V[facility]la [facility] Work Phone: 11-23-2019 15:45-0500 BP Systolic 130 mm[Hg] Ericka V[facility]la [facility] Work Phone: 11-23-2019 15:45-0500 BSA (Body Surface Area) 1.79 m2 Ericka Villela [facility] Work Phone: 11-23-2019 15:45-0500 Pulse (Heart Rate) 72 /min [facility] Work Phone: 08-15-2019 15:44-0400 BMI (Body Mass Index) 31.11 kg/m2 [facility] [email or web address] Work Phone: 08-15-2019 15:44-0400 Body weight 77.16 kg [facility] [employer] Work Phone: 08-15-2019 15:44-0400 BP Diastolic 90 mm[Hg] [facility] [employer] Work Phone: 08-15-2019 15:44-0400 BP Systolic 130 mm[Hg] [facility] [employer] Work Phone: 08-15-2019 15:44-0400 BSA (Body Surface Area) 1.78 m2 [facility] [employer] Work Phone: 08-15-2019 15:44-0400 Pulse (Heart Rate) 72 /min [facility] [employer] Work Phone: 02-21-2019 13:35-0400 BMI (Body Mass Index) 32.37 kg/m2 Ericka [facility] Work Phone: 02-21-2019 13:35-0400 Body weight 80.29 kg Ericka [facility] Work Phone: 02-21-2019 13:35-0400 BP Diastolic 84 mm[Hg] [facility] Phone: 02-21-2019 13:35-0400 BP Systolic 124 mm[Hg] [facility] Work Phone: 02-21-2019 13:35-0400 BSA (Body Surface Area) 1.81 m2 Ericka [facility] Work Phone: 02-21-2019 13:35-0400 Height 157.48 cm Ericka Man[facility] Work Phone: 02-21-2019 13:35-0400 Pulse (Heart Rate) 64 /min Ericka Villela [facility] Work Phone: NEGATED: Highlighted [id number] 12:11-0500 BMI (Body Mass Index) 31.39 kg/m2 Sonai Oakley AT [facility] Work Phone: NEGATED: Highlighted [id number] 12:11-0500 Body weight 77.57 kg Sonia Oakley AT [facility] Work Phone: NEGATED: Highlighted [id number] 12:11-0500 Body weight 78 kg Sonia Oakley AT [facility] Work Phone: NEGATED: Highlighted [id number] 12:11-0500 BP Diastolic 82 mm[Hg] Sonia Oakley AT [facility] Work Phone: NEGATED: Highlighted [id number] 12:11-0500 BP Systolic 122 mm[Hg] Sonia Oakley AT [facility] Work Phone: NEGATED: Highlighted [id number] 12:11-0500 Height 157.48 cm Sonia Oakley AT [facility] Work Phone: NEGATED: Highlighted [id number] 12:11-0500 Height 157 cm Sonia Oakley AT [facility] Work Phone: NEGATED: Highlighted [id number] 12:11-0500 Pulse (Heart Rate) 69 /min Sonia Oakley AT [facility] Work Phone: Encounters Encounter Date Encounter Type Care Provider Facility Start: 04-03-2025 End: 04-03-2025 Office outpatient visit 15 minutes Jovon Mckeon MD Work Phone: [facility] [place] Comment on above: Mononeuritis multipl ex (Primary Dx); Cervical radiculopathy Start: 04-03-2025 End: 04-03-2025 ambulatory [facility] Start: 03-27-2025 End: 03-27-2025 Patient encounter procedure Yehuda Kirk PA-C Work Phone: Orthopedics Comment on above: Post-operative state (Primary Dx) Start: 03-27-2025 End: 03-27-2025 ambulatory YEHUDA KIRK Facility:[facility] Start: 03-27-2025 End: 03-27-2025 Subsequent hospital visit by physician Radio General Erlinda Garcia Work Phone: Radiology Comment on above: Closed Colles' fract ure of left radius with routine healing, subsequent encounter [S59.532D] Start: 03-22-2025 End: 03-22-2025 ambulatory [facility] Start: 03-13-2025 End: 03-13-2025 ambulatory Cynthia Falcon OTR/L Work Phone: [facility] Comment on above: Pain and swelling of wrist, left (Primary Dx); Post-operative state; Closed Colles' fracture of left radius with routine healing, subsequent encounter Start: 03-07-2025 End: 03-07-2025 Unknown [facility] Start: 03-07-2025 End: 03-07-2025 Office outpatient visit 25 minutes Claude Thompson PA-C Work Phone: [facility] Comment on above: Urinary tract infect ion without hematuria, site unspecified Start: 03-01-2025 End: 03-01-2025 Patient encounter procedure Yehuda Kirk PA-C Work Phone: [facility] Comment on above: Closed Colles' fract ure of left radius with routine healing, subsequent encounter (Primary Dx); Post-operative state Start: 03-01-2025 End: 03-02-2025 ambulatory Sabrina Xiong OTR/L [facility] Comment on above: Pain and swelling of wrist, left (Primary Dx); Closed Colles' fracture of left radius with routine healing, subsequent encounter; Post-operative state Start: 02-19-2025 Patient encounter status Yehuda Kirk PA-C Work Phone: [facility] Work Phone: Start: 02-19-2025 End: 02-19-2025 ambulatory TOMAS GRAMAJO Facility:[facility] Start: 02-17-2025 End: 02-17-2025 Office outpatient visit 25 minutes Saima Gallego Nela MARTINESN-PLANT RELIABILITY ENGINEER Work Phone: [facility] Comment on above: Cellulitis of left t humb (Primary Dx); Skin ulcer, limited to breakdown of skin Start: 02-17-2025 End: 02-17-2025 Unknown [facility] Start: 02-16-2025 End: 02-16-2025 ambulatory Jasmine Stack APRN.PLANT RELIABILITY ENGINEER Work Phone[facility] Start: 02-16-2025 End: 02-16-2025 E-mail encounter from caregiver Jasmine Stack APRN.PLANT RELIABILITY ENGINEER Work Phone: [facility] Start: 02-14-2025 End: 02-14-2025 Orders Only Tomas Gramajo MD Work Phone: [facility] Comment on above: Closed fracture of d istal end of left radius, unspecified fracture morphology, initial encounter (Primary Dx) Closed Colles' fract ure of left radius, initial encounter [S52.532A] Closed Colles' fract ure of left radius, initial encounter Start: 02-09-2025 End: 02-09-2025 ambulatory LESLYE LEMUS Facility:[facility] Start: 02-09-2025 End: 02-09-2025 Patient encounter procedure Guillaume Merrill MD Work Phone: Orthopaedics Comment on above: Closed Colles' fract ure of left radius, initial encounter (Primary Dx) Start: 02-03-2025 End: 02-03-2025 Emergency department patient visit ERICKA VILLELA Facility:[facility] Start: 02-03-2025 End: 02-05-2025 Telephone encounter Ericka Villela MD Work Phone: Orthopaedics Comment on above: Appointment Start: 01-31-2025 End: 01-31-2025 Patient encounter procedure Guillaume Merrill MD Work Phone: Orthopaedics Comment on above: Primary osteoarthrit is of left knee; Chronic pain of right knee; Vasculitis; Presence of right artificial knee joint Start: 01-31-2025 End: 01-31-2025 ambulatory GUILLAUME MERRILL Facility:[facility] Start: 01-30-2025 End: 01-31-2025 Office outpatient visit 15 minutes Marilee Wiseman MD Work Phone: [facility] Comment on above: Cervicalgia (Primary Dx); Cervical radiculopathy Start: 01-30-2025 End: 01-31-2025 ambulatory [facility] Start: 01-25-2025 End: 01-25-2025 ambulatory [facility] Start: 01-10-2025 End: 01-10-2025 Subsequent hospital visit by physician Tory [id number] [address] 1 [facility] Comment on above: Encounter for screen ing mammogram for breast cancer Start: 01-10-2025 End: 01-10-2025 ambulatory [facility] Start: 12-28-2024 Patient encounter status [facility] 1 [facility] Work Phone: Start: 12-28-2024 End: 12-28-2024 ambulatory [facility] Start: 12-19-2024 End: 12-19-2024 Subsequent hospital visit by physician Tory [id number] X-Ray [address] [facility] Comment on above: Neck pain Start: 12-19-2024 End: 12-19-2024 Office outpatient visit 25 minutes Marilee Wiseman MD Work Phone: [facility] Comment on above: Neck pain (Primary D x); Cervicalgia Start: 12-19-2024 End: 12-19-2024 ambulatory [facility] Start: 11-16-2024 End: 11-16-2024 ambulatory [facility] Start: 11-07-2024 End: 11-07-2024 Office outpatient new 30 minutes Marilee Wiseman MD Work Phone: [facility] Comment on above: Neck pain (Primary D x) Start: 11-07-2024 End: 11-07-2024 ambulatory [facility] Start: 10-25-2024 End: 10-25-2024 Subsequent hospital visit by physician Tory [id number] X-Ray 1 [facility] Comment on above: Neck muscle spasm Start: 10-25-2024 End: 10-25-2024 ambulatory [facility] Start: 10-25-2024 End: 10-25-2024 Office outpatient visit 25 minutes Ericka Villela MD Work Phone: [facility] Comment on above: Neck muscle spasm (P rimary Dx); Type 2 diabetes mellitus without complication, without long-term current use of insulin (Multi); Cervical radiculopathy; Neck pain; Fall, initial encounter Start: 10-20-2024 End: 10-20-2024 ambulatory [facility] Start: 09-20-2024 End: 09-20-2024 ambulatory [facility] Start: 09-19-2024 End: 09-19-2024 Office outpatient visit 15 minutes Jovon Mckeon MD Work Phone: [facility] Comment on above: Mononeuritis multipl ex (Primary Dx); Cervical radiculopathy Start: 09-19-2024 End: 09-19-2024 ambulatory JOVON MCKEON [facility] Start: 09-15-2024 End: 09-15-2024 Office outpatient new 45 minutes Claude Thompson PA-C Work Phone: [facility] Comment on above: Contact with and (zuñiga spected) exposure to covid-19; COVID-19 Start: 09-15-2024 End: 09-15-2024 Unknown [facility] Start: 08-25-2024 End: 08-25-2024 ambulatory [facility] Start: 08-24-2024 End: 08-24-2024 ambulatory [facility] Start: 08-24-2024 End: 08-24-2024 Office outpatient visit 25 minutes Ericka Villela MD Work Phone: [facility] Comment on above: Vitamin B12 deficien cy (Primary Dx); Flu vaccine need; Type 2 diabetes mellitus without complication, without long-term current use of insulin (Multi); Elevated alkaline phosphatase level; Cervical radiculopathy; Arthritis of wrist, right; Gastroesophageal reflux disease without esophagitis; Primary hypertension; 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); Hypercholesterolemia Start: 08-18-2024 End: 08-18-2024 ambulatory [facility] Start: 08-08-2024 End: 08-08-2024 Office outpatient visit 25 minutes Lauri Arh [facility] COLLEGE TEACHER-PLANT RELIABILITY ENGINEER Work Phone: [facility] Comment on above: Hoarseness of voice (Primary Dx); Unilateral vocal cord paralysis Start: 08-08-2024 End: 08-08-2024 ambulatory [facility] Ambulatory Start: 07-27-2024 End: 07-27-2024 ambulatory [facility] Start: 06-01-2024 End: 06-01-2024 ambulatory [facility] Start: 05-04-2024 End: 05-04-2024 ambulatory [facility] Start: 05-04-2024 End: 05-04-2024 Office outpatient visit 40 minutes Ericka Villela MD Work Phone: [facility] Comment on above: Type 2 diabetes tara itus without complication, without long- term current use of insulin (Multi) (Primary Dx); Cardiac risk counseling; Primary hypertension; Hypercholesterolemia; B12 deficiency; Senile osteoporosis; Vitamin B12 deficiency; Gastroesophageal reflux disease without esophagitis; Mononeuritis multiplex Start: 05-03-2024 End: 07-27-2024 Telephone encounter Guillaume Merrill MD Work Phone: [facility] HB-3 Comment on above: Insurance Authorizat ion (Prior Auth Delayed: Additional Info Needed- unsigned ov note) Start: 04-28-2024 End: 04-28-2024 Patient encounter procedure Guillaume Merrill MD Work Phone: Orthopaedics Comment on above: Primary osteoarthrit is of both knees (Primary Dx); Chondromalacia of right patella Start: 04-28-2024 End: 04-28-2024 ambulatory GUILLAUME MERRILL Facility:[facility] Start: 04-28-2024 End: 04-28-2024 Subsequent hospital visit by physician Radio General Erlinda Garcia Work Phone: Radiology Comment on above: Left knee pain, unsp ecified chronicity [M25.562] Start: 04-12-2024 End: 04-12-2024 [facility] Start: 04-12-2024 End: 04-12-2024 Office outpatient visit 25 minutes Jovon Mckeon MD Work Phone: [facility] Comment on above: Mononeuritis multipl ex (Primary Dx) Start: 03-24-2024 End: 03-24-2024 ambulatory [facility] Start: 01-24-2024 End: 01-24-2024 Patient encounter procedure Hannah Elizabeth MD Work Phone: [facility] Comment on above: 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); Glottic insufficiency; Hoarseness of voice Start: 01-10-2024 End: 01-10-2024 Subsequent hospital visit by physician Tory Tello [facility] Comment on above: Asymptomatic [place] Start: 01-06-2024 End: 01-06-2024 Subsequent hospital visit by physician Tory Tello [facility] 1 [facility] Comment on above: Screening mammogram for breast cancer Start: 12-30-2023 End: 12-30-2023 Assay of hemosiderin, quant Ericka Villela MD Work Phone: [facility] Work Phone: Start: 12-30-2023 End: 12-30-2023 Patient encounter procedure Ericka Villela MD Work Phone: [facility] Comment on above: Routine general [facility] examination at health care facility (Primary Dx); Other specified postprocedural states; Tinea corporis; Screening mammogram for breast cancer; Asymptomatic menopausal state; B12 deficiency; ACP (advance care planning); Full code status; Hypercholesterolemia; Primary hypertension; Type 2 diabetes mellitus without complication, without long-term current use of insulin (CMS/HCC); Senile osteoporosis; Vitamin B12 deficiency; Gastroesophageal reflux disease without esophagitis; Screening for multiple conditions; Medicare annual wellness visit, subsequent; Depression, major, single episode, severe (CMS/HCC); Screening for alcohol problem Start: 12-20-2023 End: 12-20-2023 Subsequent hospital visit by physician Hannah Elizabeth MD Work Phone: [facility] Comment on above: Surgery, elective (P rimary Dx); Primary hypertension; Hoarseness of voice Start: 10-28-2023 End: 10-28-2023 Office outpatient visit 25 minutes Ericka Villela MD Work Phone: [facility] Comment on above: Age-related osteopor osis without current pathological fracture (Primary Dx); Gastroesophageal reflux disease without esophagitis; Primary hypertension; Vitamin D deficiency; Vitamin B12 deficiency; Type 2 diabetes mellitus without complication, without long-term current use of insulin (CMS/HCC); Other vitamin B12 deficiency anemia; Hypercholesterolemia; Depression, major, single episode, severe (CMS/HCC); Cyanocobalamin deficiency Start: 09-22-2023 End: 09-22-2023 Subsequent hospital visit by physician Iza Ko MD Work Phone: [facility] Comment on above: Pharyngoesophageal d ysphagia Start: 09-06-2023 End: 09-06-2023 Patient encounter procedure Hannah Elizabeth MD Work Phone: [facility] Comment on above: Hoarseness of voice (Primary Dx); Hoarseness or changing voice; Paresis of left vocal fold Start: 08-31-2023 End: 08-31-2023 Office outpatient new 45 minutes Hannah Elizabeth MD Work Phone: [facility] Comment on above: Hoarseness or changi ng voice (Primary Dx); Glottic insufficiency; Paresis of left vocal fold; Pharyngoesophageal dysphagia Start: 08-19-2023 End: 08-19-2023 Office outpatient visit 15 minutes Ericka Villela MD Work Phone: [facility] Comment on above: Hoarseness or changi ng voice (Primary Dx); Vitamin B12 deficiency; Laryngitis Start: 07-28-2023 End: 07-29-2023 ambulatory ERICKA VILLELA [facility] Start: 07-28-2023 End: 07-28-2023 Subsequent hospital visit by physician Par X-Ray 2 [facility] Comment on above: Other dysphagia; Hoarseness or changing voice Start: 07-22-2023 End: 07-22-2023 Office outpatient visit 25 minutes Ericka Villela MD Work Phone: [facility] Comment on above: Other dysphagia ([place] julisa Dx); Hoarseness or changing voice; Vitamin B12 deficiency; Laryngitis; Other vitamin B12 deficiency anemia; Flu vaccine need; Age-related osteoporosis without current pathological fracture Start: 06-29-2023 Office outpatient vi sit 15 minutes Ericka Villela Work Phone: WW-Etocadwav-LYWEM [place] [address] Work Phone: Start: 06-29-2023 ambulatory MD ERIKCA VILLELA [facility] ity:[facility] Start: 06-18-2023 Chart Update Ericka Villela Work Phone: QX-Acckpxbcm-[address] Work Phone: Start: 06-16-2023 AUDIT Ericka Villela Work Phone: [facility] [address] Work Phone: Start: 06-02-2023 End: 06-02-2023 Office outpatient visit 15 minutes Ericka Villela MD Work Phone: [facility] Comment on above: Subacute sinusitis, unspecified location (Primary Dx); Vasculitic neuropathy (CMS/HCC); Secondary non-renal hyperparathyroidism (CMS/HCC); Laryngitis Start: 02-24-2023 End: 02-24-2023 Office outpatient visit 15 minutes Ericka Villela MD Work Phone: [facility] Comment on above: Achilles tendinitis of right lower extremity (Primary Dx); Vitamin B12 deficiency Start: 02-10-[address] Luís Dixon Faci lity:[id number] Start: 12-31-2022 ambulatory Chanelle Estrada Facility: [id number] Start: 12-31-2022 Office consultation new/estab patient 60 min Ericka Villela Work Phone: FT-Wlgpgzuacs-[address] Work Phone: Start: 12-24-2022 AUDIT Ericka Villela Work Phone: [facility] Work Phone: Start: 12-24-2022 End: 12-24-2022 Patient encounter procedure Ericka Villela MD Work Phone: [facility] Work Phone: Comment on above: Poor sleep (Primary Dx); Other fatigue; Cervical radiculopathy; Primary hypertension; Medicare annual wellness visit, subsequent; ACP (advance care planning); Full code status; Screening for multiple conditions; Screening for alcohol problem; Gastroesophageal reflux disease without esophagitis; Age-related osteoporosis without current pathological fracture; Vitamin D deficiency; Vitamin B12 deficiency; Type 2 diabetes mellitus without complication, without long-term current use of insulin (CMS/HCC); Depression, major, single episode, severe (CMS/HCC) Start: 12-23-2022 AUDIT Ericka Villela Work Phone: UU-Jzhmfkfvo-HRPEE [place] [address] Work Phone: Start: 11-26-2022 ambulatory MD ERICKA VILLELA Facil ity:[id number] Start: 10-29-2022 ambulatory MD ERICKA VILLELA Facil ity:[id number] Start: 10-20-2022 ambulatory DO LAYA NICHOLS Facility:[id number] Start: 10-20-2022 Office outpatient vi sit 25 minutes Ericka Adonis Villela Work Phone: [facility] Work Phone: Start: 10-01-2022 ambulatory MD ERICKA VILLELA Facil ity:[id number] Start: 10-01-2022 Patient encounter procedure Al fouzia [facility] Work Phone: [facility] Work Phone: Start: 09-03-2022 Office outpatient vi sit 25 minutes Ericka Villela Work Phone: [facility] Work Phone: Start: 09-03-2022 ambulatory MD ERICKA VILLELA Facil ity:[id number] Start: 08-28-2022 AUDIT Ericka Villela Work Phone: [facility] Work Phone: Start: 08-27-[address] [facility] Work Phone: [facility] [address] [place] Work Phone: Start: 08-19-2022 Patient encounter procedure Al fouzia [facility] Work Phone: [facility] [address] [place] Work Phone: Start: 08-19-[address] [facility] Work Phone: [facility] [address] [place] Work Phone: Start: 07-27-2022 Patient encounter procedure Al fouzia [facility] Work Phone: [facility] Work Phone: Start: 07-27-2022 ambulatory MD ERICKA VILLELA Facil [id number] Start: 06-29-2022 Patient encounter procedure Al fouzia Villela Work Phone: [facility] Work Phone: Start: 06-23-2022 AUDIT Ericka Villela Work Phone: [facility] Work Phone: Start: 06-22-2022 Rx Renewal Ericka Villela Work Phone: OP-Zxtdrgjzz-Uzlgtma n Work Phone: Start: 06-09-2022 AUDIT Ericka Villela Work Phone: [facility] Work Phone: Start: 05-07-2022 AUDIT Ericka Villela Work Phone: [facility] Work Phone: Start: 05-05-2022 NPV, Provider: Kel Pozo, Status: Pen, Time: 10:10 AM Ericka Villela Work Phone: [facility] Work Phone: Start: 05-04-2022 Patient encounter procedure Stephen Villela Work Phone: [facility] Work Phone: Start: 04-29-2022 Office outpatient vi sit 25 minutes Ericka Villela Work Phone: [facility] Work Phone: Start: 2022 AUDIT Ericka Villela Work Phone: [facility] Work Phone: Start: 2022 Patient encounter procedure Stephen Villela Work Phone: [facility] Work Phone: Start: 04-03-2022 Chart Update Ericka Villela Work Phone: [facility] Work Phone: Start: 04-02-[address] [facility] Work Phone: [facility] Work Phone: Start: 03-30-2022 AUDIT Ericka Lamb Manohar Work Phone: [facility] Work Phone: Start: 03-27-2022 Chart Update Ericka M Manohar Work Phone: [facility] Work Phone: Start: 03-26-2022 Chart Update [address] [facility] Work Phone: [facility] Work Phone: Start: 03-24-2022 Office outpatient vi sit [address] [facility] Work Phone: [facility] Work Phone: Start: 03-09-2022 Patient encounter procedure Al fouzia Lamb Manohar Work Phone: [facility] Work Phone: Start: 02-18-2022 Office outpatient vi sit [address] [facility]: Start: 02-09-2022 Patient encounter procedure Al fouzia [facility] Work Phone: [facility] Work Phone: Start: 01-25-2022 AUDIT Ericka Lamb Manohar Work Phone: [facility] Work Phone: Start: 01-12-2022 Patient encounter procedure Al ice Adonis Manohar Work Phone: [facility] Work Phone: Start: 01-08-2022 Chart Update Ericka M Manohar Work Phone: [facility] Work Phone: Start: 01-01-2022 Current tobacco non- user cad cap copd pv dm Ericka Villela Work Phone: [facility] Work Phone: Start: 01-01-2022 Patient encounter procedure Stephen Villela Work Phone: DD-Osiiufjts-JRQZZ [place] [address] Work Phone: Start: 12-31-2021 AUDIT Ericka Villela Work Phone: [facility] Work Phone: Start: 12-15-2021 Patient encounter procedure Stephen Villela Work Phone: [facility] Work Phone: Start: 11-17-2021 Patient encounter procedure Stephen Villela Work Phone: [facility] Work Phone: Start: 10-20-2021 Patient encounter procedure Stephen Villela Work Phone: [facility] Work Phone: Start: 09-22-2021 Patient encounter procedure Stephen Villela Work Phone: [facility] Work Phone: Start: 09-04-2021 FUV, Provider: Ericka Villela, Status: Pen, Time: 11:00 AM Ericka Villela Work Phone: [facility] Work Phone: Start: 09-03-2021 AUDIT Ericka Lamb Manohar Work Phone: [facility] Work Phone: Start: 08-26-2021 AUDIT Ericka Lamb Manohar Work Phone: [facility] Work Phone: Start: 07-28-2021 Office outpatient vi sit 25 minutes Ericka M Manohar Work Phone: [facility] Work Phone: Start: 07-25-2021 End: 07-25-2021 Subsequent hospital visit by physician Rivera Tan MD Work Phone: [facility] Start: 07-24-2021 End: 07-24-2021 Emergency department patient visit Rivera Tan MD Work Phone: [facility] ED Comment on above: Nausea, vomiting and diarrhea (Primary Dx); Dehydration Start: 07-22-2021 Chart Update Ericka Villela Work Phone: KR-[address]keg[address] Work Phone: Start: 07-15-2021 Office outpatient vi sit 15 minutes Ericka Villela Work Phone: HI-Fwxhnodxg-TJDGW [place] [address] Work Phone: Start: 07-15-2021 Patient encounter procedure Stephen [facility] Work Phone: PH-Nojoqgdku-FMNIL [place] [address] Work Phone: Start: 07-15-2021 LEAH, Provider : Jovon Mckeon, Status: Pen, Time: 9:00 AM Ericka Villela Work Phone: AG-Kgcxstjwv-Tsapbyl n Work Phone: Start: 07-14-[address] [facility] Work Phone: CR-Kyksxgdtu-Nghrztz n Work Phone: Start: 06-26-[address] [facility] Work Phone: NQ-Lnfsnwoop-UZSYL [place] [address] Work Phone: Start: 06-03-2021 Patient encounter procedure Stephen [facility] Work Phone: [facility] Work Phone: Start: 05-14-2021 Chart Update Ericka [facility] Work Phone: [facility] [employer] Work Phone: Start: 05-06-2021 Patient encounter procedure Al fouzia Lamb Manohar Work Phone: [facility] Work Phone: Start: 05-02-2021 Chart Update Ericka M Manohar Work Phone: [facility] [employer] Work Phone: Start: 04-30-2021 Office outpatient vi sit 15 minutes Ericka Lamb Manohar Work Phone: [facility] [employer] Work Phone: Start: 04-27-2021 Chart Update Ericka Lamb Manohar Work Phone: [facility] [employer] Work Phone: Start: 04-22-2021 AUDIT Ericka Villela Work Phone: [facility] [employer] Work Phone: Start: 04-02-2021 Office outpatient vi sit 25 minutes Ericka Lamb Manohar Work Phone: [facility] [employer] Work Phone: Start: 04-02-2021 Patient encounter procedure Al fouzia [facility] Work Phone: [facility] [employer] Work Phone: Start: 02-26-2021 Nursing evaluation o f patient and report Ericka [facility]illela [facility] Work Phone: Start: 01-31-2021 Nursing evaluation o f patient and report Ericka Villela MD BP-Kwyxygoypqak-[address] Work Phone: Start: 01-01-2021 Nursing evaluation o f patient and report Ericka Villela MD CU-Nnrgqghyqcmi-Dmqj [address] Work Phone: Start: 12-04-2020 Patient encounter procedure Ericka Ordaz MD UV-Dqelxtdirdsu-Exkc [address] Work Phone: Start: 11-15-2020 Patient encounter procedure Ericka De nton [facility] Work Phone: Start: 11-06-2020 Nursing evaluation o f patient and report [facility]ka [facility] WY-Quikwsxxz-XVHAR [facility] Work Phone: Start: 10-09-2020 Nursing evaluation o f patient and report Ericka [facility] Work Phone: Start: 09-11-2020 Nursing evaluation o f patient and report Ericka [facility] Work Phone: Start: 08-12-2020 Patient encounter procedure Ericakkingsley Nayloron [facility] Work Phone: Start: 08-01-2020 Patient encounter procedure Erickakingsley Nayloron [facility] Work Phone: Start: 07-17-2020 Nursing evaluation o f patient and report [facility] Work Phone: Start: 06-19-2020 Nursing evaluation o f patient and report [facility]ka [facility] Work Phone: Start: 05-22-2020 Nursing evaluation o f patient and report Ericka Manohar [facility] Work Phone: Start: 04-24-2020 Patient encounter procedure Ericka De nton [facility] Work Phone: Start: 03-29-2020 Nursing evaluation o f patient and report Ericka Manohar [facility] Work Phone: Start: 02-28-2020 Nursing evaluation o f patient and report Ericka Manohar [facility] Work Phone: Start: 01-30-2020 Nursing evaluation o f patient and report [facility] Work Phone: Start: 01-18-2020 Patient encounter procedure Ericka De nton [facility] Work Phone: Start: 01-02-2020 Nursing evaluation o f patient and report Ericka Villela [facility] Work Phone: Start: 12-11-2019 End: 12-11-2019 Patient encounter procedure Rodríguez Capellan PA-C Work Phone: [facility] Work Phone: Start: 12-07-2019 Patient encounter procedure Ericka Ordaz MB-Baoxxdjjoumt-[address] Work Phone: Start: 12-05-2019 Nursing evaluation o f patient and report Ericka Villela [facility] Work Phone: Start: 11-23-2019 Patient encounter procedure [facility] rOdaz [facility] Work Phone: Start: 11-09-2019 Nursing evaluation o f patient and report Ericka Villela [facility] Work Phone: Start: 09-05-2019 Nursing evaluation o f patient and report Ericka Villela [facility] Work Phone: Start: 08-15-2019 Patient encounter procedure Ericka Ordaz [facility] Work Phone: Start: 07-11-2019 Nursing evaluation o f patient and report [facility] [employer] Work Phone: Start: 06-28-2019 Patient encounter procedure [facility] [employer] Work Phone: Start: 06-13-2019 Nursing evaluation o f patient and report [facility] [employer] Work Phone: Start: 05-16-2019 Nursing evaluation o f patient and report [facility] [employer] Work Phone: Start: 05-02-2019 Patient encounter procedure Ericka Hugh [facility] Work Phone: Start: 04-19-2019 Nursing evaluation o f patient and report [facility] [employer] Work Phone: Start: 04-18-2019 Nursing evaluation o f patient and report [facility] [employer] Work Phone: Start: 04-07-2019 Patient encounter procedure [facility] [employer] Work Phone: Start: 03-28-2019 Patient encounter procedure Ericka Hugh [facility] [employer] Work Phone: Start: 03-21-2019 Nursing evaluation o f patient and report Ericka [facility] Work Phone: Start: 03-08-2019 Patient encounter procedure Ericka De [facility] Work Phone: Start: 02-21-2019 Patient encounter procedure Ericka De [facility] Work Phone: Start: 01-24-2019 Nursing evaluation o f patient and report Ericka Villela [facility] Work Phone: Start: 01-02-2019 Nursing evaluation o f patient and report Ericka Villela [facility] Work Phone: Start: 12-27-2018 Nursing evaluation o f patient and report Ericka Villela [facility] Work Phone: Start: 12-02-2018 Nursing evaluation o f patient and report Ericka Villela [facility] Work Phone: Start: 11-01-2018 Patient encounter procedure Ericka Ordaz [facility] Work Phone: Start: 09-27-2018 Nursing evaluation o f patient and report Ericka Villela [facility] Work Phone: Start: 08-30-2018 Nursing evaluation o f patient and report Ericka [facility]illela [facility] Work Phone: Start: 08-08-2018 Nursing evaluation o f patient and report Ericka Villela [facility] Work Phone: Start: 08-04-2018 Nursing evaluation o f patient and report Ericka Villela [facility] Work Phone: Start: 07-08-2018 Patient encounter procedure [facility] Ordaz [facility] Work Phone: Start: 06-06-2018 Nursing evaluation o f patient and report Ericka Villela [facility] Work Phone: Start: 05-23-2018 Patient encounter procedure Ericka Ordaz [facility] Work Phone: Start: 05-18-2018 Patient encounter procedure [facility] Ordaz [facility] Work Phone: Start: 05-09-2018 Patient encounter procedure [facility] Work Phone: Start: 04-12-2018 Patient encounter procedure [facility] Ordaz [facility] Work Phone: Start: 03-31-2018 Patient encounter procedure Ericka Ordaz [facility] Work Phone: Start: 03-15-2018 Nursing evaluation o f patient and report Ericka Villela [facility] Work Phone: Start: 03-01-2018 Nursing evaluation o f patient and report Ericka Villela [facility] Work Phone: Start: 02-17-2018 Patient encounter procedure Ericka Ordaz [facility] Work Phone: Start: 02-15-2018 Nursing evaluation o f patient and report Ericka Villela [facility] Work Phone: Start: 01-31-2018 Patient encounter procedure Ericka Ordaz [facility] Work Phone: Start: 01-18-2018 Nursing evaluation o f patient and report Ericka Villela [facility] Work Phone: Start: 12-23-2017 Patient encounter procedure Ericka Ordaz [facility] Work Phone: Start: 12-21-2017 Nursing evaluation o f patient and report Ericka Villela [facility] Work Phone: Start: 11-24-2017 Patient encounter procedure [facility] Ordaz [facility] Work Phone: Start: 11-24-2017 Patient encounter procedure [facility]ka Ordaz [facility] Work Phone: Start: 11-23-2017 Patient encounter procedure [facility]ka Ordaz [facility] Work Phone: Start: 11-22-2017 Patient encounter procedure Ericka Ordaz [facility] Work Phone: Start: 10-27-2017 Nursing evaluation o f patient and report Ericka Villela [facility] Work Phone: Start: 10-06-2017 Patient encounter procedure [facility] Ordaz [facility] Work Phone: Start: 09-28-2017 Nursing evaluation o f patient and report Ericka Villela [facility] Work Phone: Start: 08-31-2017 Nursing evaluation o f patient and report Ericka Villela [facility] Work Phone: Start: 08-16-2017 Patient encounter procedure [facility] Ordaz [facility] Work Phone: Start: 08-03-2017 Patient encounter procedure Ericka Ordaz [facility] Work Phone: Start: 07-06-2017 Patient encounter procedure Ericka Ordaz [facility] Work Phone: Start: 06-08-2017 Nursing evaluation o f patient and report Ericka Villela [facility] Work Phone: Start: 05-25-2017 Nursing evaluation o f patient and report Ericka Villela [facility] Work Phone: Start: 05-11-2017 Nursing evaluation o f patient and report Ericka Villela [facility] Work Phone: Start: 05-03-2017 Patient encounter procedure [facility]ka Ordaz [facility] Work Phone: Start: 04-13-2017 Nursing evaluation o f patient and report Ericka Villela [facility] Work Phone: Start: 03-16-2017 Nursing evaluation o f patient and report Ericka Villela [facility] Work Phone: Start: 03-10-2017 Patient encounter procedure [facility] Ordaz [facility] Work Phone: Patient encounter status Ericka Villela MD [id number] Work Phone: End: 04-24-2020 Patient encounter status Ericka M Manohar Work Phone: [facility] Work Phone: Procedures Date Procedure Procedure Detail Performing Clinician Start: 03-07-2025 Urnls dip stick/tabl et rgnt auto w/o microscopy Claude Thompson PA-C Work Phone: Start: 01-31-2025 Arthrocentesis aspir &/inj major jt/bursa w/o us Guillaume Merrill MD Work Phone: Start: 01-31-2025 Follow-up visit Follow Up GUILLAUME MERRILL Start: 01-10-2025 Mammography Marilee danielle MD Work Phone: Start: 09-15-2024 Iaadiadoo influenza Ashley Thompson PA-C Work Phone: Start: 09-15-2024 SARS-CoV-2 (COVID-19 ) Ag [Presence] in Respiratory specimen by Rapid immunoassay Claude Thompson PA-C Work Phone: Start: 08-08-2024 Follow-up visit Follow-up LAURI SAHU Start: 04-28-2024 Arthrocentesis aspir &/inj major jt/bursa w/o us Guillaume Merrill MD Work Phone: Start: 04-28-2024 Radiologic exam knee complete 4/more views Celso Martell PA-C Work Phone: Start: 06-26-2024 Follow-up visit Follow-up JOVON MCKEON Start: 01-10-2024 Dxa bone density radha dy 1/> sites axial skel Ericka Villela MD Work Phone: Start: 01-06-2024 Mammography [facility] Start: 12-29-2023 Lipid 1995 panel - S lizzette or Plasma Ericka Villela MD Work Phone: Start: 09-22-2023 Egd transoral biopsy single/multiple Hannah Elizabeth MD Work Phone: Start: 09-22-2023 PULSE OXIMETRY, CONTINUOUS Iza Ko MD Work Phone: Start: 09-22-2023 PULSE OXIMETRY, SPOT Sa erick Ko MD Work Phone: Start: 07-28-2023 FL MODIFIED BARIUM SWALLOW STUDY ERICKA VILLELA Start: 07-28-2023 Radiologic exam swal low function contrast study Ericka Villela MD Work Phone: Start: 12-17-2022 Lipid 1996 panel - S lizzette or Plasma Ericka Villela MD Work Phone: Start: 11-11-2022 End: 11-11-2022 H/O: surgery S/P gastric surgery Ericka Villela MD Work Phone: Start: 06-08-2022 Colonoscopy Ericka gillette MD Work Phone: Start: 07-25-2021 Iadna-dna/rna gi pth gn multiplex probe tq 10-11 Rivera Tan MD Work Phone: Start: 07-24-2021 ADD ON LAB TEST Rivera Tan MD Work Phone: Start: 07-24-2021 Comprehensive metabolic panel Rivera Tan MD Work Phone: Start: 12-03-2020 Xray Bone Density, D exa 1 or More Sites Ericka Villela Start: 07-30-2020 MG Breast screening Nate Villela Start: 07-25-2020 Mammography Ericka gillette MD Work Phone: Start: 04-24-2020 Microscopic observat ion [Identifier] in Cervix by Cyto stain Ericka Villela MD Work Phone: Start: 12-11-2019 End: 12-11-2019 Blood pressure within normal parameters - no follow-up required Rodríguez Capellan PA-C Work Phone: Start: 12-11-2019 End: 12-11-2019 BMI documented as above normal parameters - follow-up documented Rodríguez Capellan PA-C Work Phone: Start: 12-11-2019 End: 12-11-2019 DELUXE ARM SLING (PROCARE) Rodríguez vigil PA-C Work Phone: Start: 12-11-2019 End: 12-11-2019 Documentation of current medications Rodríguez Capellan PA-C Work Phone: Start: 12-11-2019 End: 12-11-2019 Pain assessment documented as positive - follow-up documented Rodríguez Capellan PA-C Work Phone: Start: 12-11-2019 End: 12-11-2019 Radex elbow complete minimum 3 views Rodríguez Capellan PA-C Work Phone: Start: 12-11-2019 End: 12-11-2019 Tobacco non-user Rodríguez Capellan PA-C Work Phone: Start: 06-22-2019 Urnls dip stick/tabl et rgnt auto w/o microscopy Ericka [facility] Start: 02-24-2019 Xray Bone Density, D exa 1 or More Sites Ericka Manohar Start: 02-21-2019 25 hydroxy includes fractions if performed Ericka Manohar Start: 02-21-2019 Albumin, Urine Spot Ali ce Manohar Start: 02-21-2019 CBC W Auto Different ial panel - Blood Ericka [facility] Start: 02-21-2019 Comprehensive metabo lic 2000 panel Ericka Manohar Start: 02-21-2019 CT Cardiac Scoring Alic e [facility] Start: 02-21-2019 Hem[address]1c Ericka [facility] Start: 02-21-2019 Lipid panel Ericka Mah[place] on Start: 05-07-2019 TSH WITH REFLEX TO F REE T4 IF ABNORMAL Ericka Villela Start: 08-21-2013 H/O: artificial joint S/P knee replacement Ericka Villela MD Work Phone: Cholecystectomy Ericka Villela Colonoscopy Ericka Villela Work Phone: Comment on above: 06/08/22 Dr White, t ics, int hem, otherwise NL; Esophagogastroduodenoscopy A carleyaric Manohar Comment on above: 05/23/15 kimo Colmenares astric polyps, Cornejo's, HH, antritis w/ bile relux05/13/17 Dr Sanchez 3cm HH, irreg Z line, RNY gastric bypass with NL anastomosis; 05/23/15 kimo Colmenares astric polyps, Cornejo's, HH, antritis w/ bile relux05/13/17 Dr Sanchez 3cm HH, irreg Z line, RNY gastric bypass with NL anastomosis06/03/22 Dr White, HH, RNY gastric bypass, NL EGD; H/O: surgery S/P gastric surgery Ericka Villela MD History of Ant Spina l Diskect Osteophytect Cerv Interspace Microdiscect Ericka Villela Comment on above: 07/27/17 C5-6 Dr Orlando Acosta Anterior cervical diskectomy and fusion with structural allograft and Medtronic Zevo instrumentaion; History of Biopsy Br east Percutaneous Needle Core Ericka Villela History of Capsule Endoscopy Ericka Villela Comment on above: 06/24/17 Dr White RNY gastyric bypas, small red spots thought to be benign and otherwise NL scopy; History of Cervical Conization Ericka Villela History of Dilation And Curettage Ericka Villela History of Gastric S urgery For Morbid Obesity Bypass With Maria Ines-en-Y Ericka Villela History of Screening for malignant neoplasms, colon Ericka Villela Hysteroscopy Ericka Villela Screening for malign ant neoplasms, colon Ericka Villela Work Phone: Comment on above: 05/06/17 Dr White, p olyps, sig tics, int hem, rec repeat in 3 years; NEGATED: Highlighted rowStart: 12-11-2019 End: 12-11-2019 Documentation of current medications Sonia Oakley AT Plan of Treatment Date Care Activity Detail Author Start: 2033 RSV High Risk: (Elderly (60+) or Population) (1 - 1-dose 75+ series) RSV High Risk: (Elderly (60+) or Population) (1 - 1-dose 75+ series) [facility] Start: 2033 RSV Vaccine (1 - 1-dose 75+ series) RSV Vaccine (1 - 1-dose 75+ series) [facility] Start: 06-08-2032 Screening for malignant neoplasm of colon [facility] Start: 12-28-2028 Lipid panel Lipid Screening [facility] Start: 07-29-2028 DTaP/Tdap/Td Vaccines (2 - Td or Tdap) DTaP/Tdap/Td Vaccines (2 - Td or Tdap) [facility] Start: 07-29-2028 Urine microalbumin profile DTaP,Tdap,Td Vaccine (2 - Td or Tdap) [facility] Start: 09-20-2027 Diabetes Screening Diabetes Screening [facility] Start: 2027 Diabetes Screening Diabetes Screening [facility] Start: 01-10-2026 Screening for malignant neoplasm of breast [facility] Start: 01-09-2026 Screening for osteoporosis [facility] Start: 12-29-2025 Medicare Annual Wellness Visit Medicare Annual Wellnes s Visit (AWV) [facility] Start: 08-08-2025 End: 08-08-2025 Patient encounter procedure 08/08/2025 8:00 AM EDT Office Visit Orthopaedics [address] [address] Guillaume Merrill MD [address] [address] 6 m f/u, bilat knees Orthopa[facility]ics Comment on above: 6 m f/u, bilat knees Start: 06-26-2025 End: 06-26-2025 Patient encounter procedure 06/26/2025 11:45 AM EDT Office Visit Orthopedics [address] [phone] Yehuda Kirk PA-C [address] [place] [address] 3 MO follow up ORIF R RADIUS SX 02/19/25 4wk f/u Orthopedics Comment on above: 3 MO follow up ORIF R RADIUS SX 02/19/25 4wk f/u Start: 04-19-2025 End: 04-19-2025 Patient encounter procedure 04/19/2025 11:00 AM EDT [facility] Visit [facility] [place] [phone] Ericka Villela MD [address] [facility], [facility] [address] [place] [address] [facility] Start: 03-27-2025 End: 03-27-2025 Patient encounter procedure [facility] Comment on above: PO ORIF R RADIUS SX 02/19/25 4wk f/u ORIF right radius Start: 03-22-2025 End: 03-22-2025 Clinical Support 03/22/2025 11:00 AM EDT Clinical Support [facility] [place] [phone] [facility] Start: 03-13-2025 End: 03-13-2025 ambulatory 03/13/2025 8:30 AM EDT OT/PT/Speech Visit [facility] [address] [place] [address] Cynthia Falcon, OTR/L [address] [place] [address] Transfer of Care/Closed Colles' fracture of left radius with routine healing, subsequent encounter [facility] Comment on above: Transfer of Care/Closed Colles' fracture of left radius with routine healing, subsequent encounter Start: 02-22-2025 End: 02-22-2025 Clinical Support 02/22/2025 11:00 AM EDT Clinical Support [facility] [place] [phone] [facility] Start: 02-19-2025 End: 02-19-2025 Admission to same day surgery center 02/19/2025 2:00 PM EDT - 02/19/2025 4:00 PM EDT Surgery DANTE RICHARD [address] [place] [address] Tomas Gramajo MD [address] [place] [address] ORIF DISTAL RADIUS THREE OR MORE FRAGMENTS DANTE RICHARD Comment on above: ORIF DISTAL RADIUS THREE OR MORE FRAGMEN TS Start: 02-19-2025 End: 02-19-2025 Optx dstl radl i-artic fx/epiphysl sep 3 frag ORIF DISTAL RADIUS THREE OR MORE FRAGMENTS Closed fracture of distal end of left radius, unspecified fracture morphology, initial encounter 02/19/2025 2:00 PM EDT NAIN RICHARD Start: 02-19-2025 Subsequent hospital visit by physician DANTE RICHARD Comment on above: Closed fracture of distal end of left ra dius, unspecified fracture morphology, initial encounter [S52.502A] Start: 02-09-2025 End: 02-09-2025 Patient encounter procedure Orthopaedics Comment on above: ED follow up- Wrist fracture NEW L wrist Gilsoniraky Start: 01-30-2025 End: 01-30-2025 Patient encounter procedure 01/30/2025 1:40 PM EDT Office Visit [facility] [address] [place] [phone] Marilee Wiseman MD [address] [place] [address] [facility] Start: 01-25-2025 End: 01-25-2025 Clinical Support 01/25/2025 11:00 AM EDT Clinical Support [facility] [address] [place] [phone] [facility] Start: 01-05-2025 Screening for malignant neoplasm of [facility] Start: 12-30-2024 Medicare Annual Wellness Visit Medicare Annual Wellnes s Visit (AWV) [facility] Start: 12-29-2024 Urine screening for protein Diabetes: Urine Protein Screening [facility] Start: 12-28-2024 Lipid panel Lipid Panel [facility] Start: 12-28-2024 End: 12-28-2024 Patient encounter procedure 12/28/2024 10:15 AM EDT [facility] Visit [facility] [address] [place] [address] Ericka Villela MD [address] [facility], [address] [place], [place] [phone] [facility] Start: 12-19-2024 End: 12-19-2024 Patient encounter procedure [facility] Start: 12-19-2024 End: 12-19-2025 XR Cervical spine 2 or 3 Views [facility] Serv ice Area Work Phone: Comment on above: Expected: 12/19/2024, Expires: Once for 1 Occurrenc es starting 12/19/2024 until 12/19/2024 Start: 11-24-2024 End: 08-24-2025 25-hydroxyvitamin D3 [Mass/volume] in Serum or Plasma Vitamin D 25-Hydroxy,Total (for eval of Vitamin D levels) Lab Routine Vitamin B12 deficiency Type 2 diabetes mellitus without complication, without long-term current use of insulin (Multi) Elevated alkaline phosphatase level Cervical radiculopathy Arthritis of wrist, right Gastroesophageal reflux disease without esophagitis Primary hypertension 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, unspecified whether serious comorbidity present Expected: 11/24/2024, Expires: 08/24/2025 [facility] Work Phone: Comment on above: Expected: 11/24/2024, Expires: Start: 11-24-2024 End: 08-24-2025 CBC panel - Blood by Automated count CBC Lab Routine Vitamin B12 deficiency Type 2 diabetes mellitus without complication, without long-term current use of insulin (Multi) Elevated alkaline phosphatase level Cervical radiculopathy Arthritis of wrist, right Gastroesophageal reflux disease without esophagitis Primary hypertension Expected: 11/24/2024, Expires: 08/24/2025 [facility] Work Phone: Comment on above: Expected: 11/24/2024, Expires: Start: 11-24-2024 End: 08-24-2025 Comprehensive metabolic 2000 panel - Serum or Plasma Comprehensive Metabolic Panel Lab Routine Vitamin B12 deficiency Type 2 diabetes mellitus without complication, without long-term current use of insulin (Multi) Elevated alkaline phosphatase level Cervical radiculopathy Arthritis of wrist, right Gastroesophageal reflux disease without esophagitis Primary hypertension Expected: 11/24/2024, Expires: 08/24/2025 [facility] Work Phone: Comment on above: Expected: 11/24/2024, Expires: Start: 11-24-2024 End: 08-24-2025 Hemoglobin A1c/Hemoglobin.total in Blood Hemoglobin A1C Lab Routine Vitamin B12 deficiency Type 2 diabetes mellitus without complication, without long-term current use of insulin (Multi) Elevated alkaline phosphatase level Cervical radiculopathy Arthritis of wrist, right Gastroesophageal reflux disease without esophagitis Primary hypertension Expected: 11/24/2024, Expires: 08/24/2025 [facility] Work Phone: Comment on above: Expected: 11/24/2024, Expires: Start: 11-24-2024 End: 08-24-2025 Lipid 1996 panel - Serum or Plasma Lipid Panel Lab Routine Vitamin B12 deficiency Type 2 diabetes mellitus without complication, without long-term current use of insulin (Multi) Elevated alkaline phosphatase level Cervical radiculopathy Arthritis of wrist, right Gastroesophageal reflux disease without esophagitis Primary hypertension Expected: 11/24/2024, Expires: 08/24/2025 [facility] Work Phone: Comment on above: Expected: 11/24/2024, Expires: Start: 11-24-2024 End: 08-24-2025 Microalbumin/Creatinine [Mass Ratio] in Urine Albumin-Creatinine Ratio, Urine Random Lab Routine Vitamin B12 deficiency Type 2 diabetes mellitus without complication, without long-term current use of insulin (Multi) Elevated alkaline phosphatase level Cervical radiculopathy Arthritis of wrist, right Gastroesophageal reflux disease without esophagitis Primary hypertension Expected: 11/24/2024, Expires: 08/24/2025 [facility] Service Area Work Phone: Comment on above: Expected: 11/24/2024, Expires: Start: 11-24-2024 End: 08-24-2025 TSH with reflex to Free T4 if abnormal TSH with reflex to Free T4 if abnormal Lab Routine Vitamin B12 deficiency Type 2 diabetes mellitus without complication, without long-term current use of insulin (Multi) Elevated alkaline phosphatase level Cervical radiculopathy Arthritis of wrist, right Gastroesophageal reflux disease without esophagitis Primary hypertension Expected: 11/24/2024, Expires: 08/24/2025 [facility] Work Phone: Comment on above: Expected: 11/24/2024, Expires: Start: 11-16-2024 End: 11-16-2024 Clinical Support 11/16/2024 11:30 AM EST Clinical Support [facility] [place] [address] [facility] Start: 10-24-2024 End: 08-24-2025 TSH with reflex to Free T4 if abnormal TSH with reflex to Free T4 if abnormal Lab Routine Primary hypertension Other fatigue Expected: 10/24/2024 (Approximate), Expires: 08/24/2025 [facility] Work Phone: Comment on above: Expected: 10/24/2024 (Approximate), Expi res: 08/24/2025 Start: 10-19-2024 End: 10-19-2024 Clinical Support 10/19/2024 11:00 AM EST Clinical Support [facility] [place] [address] [facility] Start: 10-18-2024 Advance Directive Discussion Advance Directive Discussion [facility] Start: 09-26-2024 End: 09-26-2024 Telemedicine consultation with patient 09/26/2024 10:30 AM EST Telemedicine [facility] [address] [facility] 5th [place] [address] [place] [address] Department [place] [address] [facility] Start: 09-21-2024 End: 09-21-2024 Clinical Support 09/21/2024 11:00 AM EST Clinical Support [facility] [address] [place] [address] [facility] Start: 09-20-2024 End: 09-20-2024 Clinical Support 09/20/2024 10:00 AM EST Clinical Support [facility] [address] [place] [address] [facility] Start: 09-19-2024 End: 09-19-2024 Telemedicine consultation with patient 09/19/2024 10:30 AM EST Telemedicine [facility] [address] [facility] [address] [place] [address] [place] [address] [address] Department [place] [address] [facility] Start: 09-01-2024 Hemoglobin A1c measurement Diabetes: Hemoglobin A1C [facility] Start: 08-25-2024 End: 08-25-2024 Telemedicine consultation with patient 08/25/2024 11:15 AM EST Telemedicine Clinical Support [facility] [address] [place] [phone] Alesha Hernandez, HOME OFFICE CLAIMS EXAMINER [address] [place] [address] [facility] Start: 08-24-2024 End: 08-24-2025 CBC panel - Blood by Automated count [facility] Work Phone: Comment on above: Expected: 08/24/2024 (Approximate), Expi res: 08/24/2025 Start: 08-24-2024 End: 08-24-2025 Comprehensive metabolic 2000 panel - Serum or Plasma [facility] Work Phone: Comment on above: Expected: 08/24/2024 (Approximate), Expi res: 08/24/2025 Start: 08-24-2024 End: 08-24-2024 Patient encounter procedure [facility] Start: 08-18-2024 End: 08-18-2024 Telemedicine consultation with patient 08/18/2024 9:45 AM EDT Telemedicine Clinical Support [facility] [address] [place] [address] Alesha Hernandez, HOME OFFICE CLAIMS EXAMINER [address] [place] [address] [facility] Start: 07-31-2024 End: 07-31-2024 Patient encounter procedure 07/31/2024 11:00 AM EDT Office Visit [facility] [address] [place] [address] [place] [address] [place], [place] [phone] [facility] Start: 07-27-2024 End: 07-27-2024 Clinical Support 07/27/2024 11:00 AM EDT Clinical Support [facility] [address] [place] [address] [facility] Start: 06-29-2024 End: 06-29-2024 Clinical Support 06/29/2024 11:00 AM EDT Clinical Support [facility] [address] [place] [address] [facility] Start: 06-18-2024 Covid-19 Vaccine (7 - 2024-25 season) Covid-19 Vaccine ( season) [facility] Start: 06-18-2024 Influenza vaccination Influenza Vaccine (#1) [facility] Start: 06-01-2024 End: 06-01-2024 Clinical Support 06/01/2024 11:00 AM EDT Clinical Support [facility] [place] [phone] [facility] Start: 05-04-2024 End: 05-04-2025 Hemoglobin A1c/Hemoglobin.total in Blood Hemoglobin A1C Lab Routine Type 2 diabetes mellitus without complication, without long-term current use of insulin (Multi) Expected: 05/04/2024 (Approximate), Expires: 05/04/2025 [facility] Service Area Work Phone: Comment on above: Expected: 05/04/2024 (Approximate), Expi res: 05/04/2025 Start: 05-04-2024 End: 05-04-2024 Patient encounter procedure 05/04/2024 2:00 PM EDT [facility] Visit [facility] [address] [place] [address] Ericka Villela MD [address] [facility] [address] [place], [place] [phone] [facility] Start: 04-12-2024 End: 04-12-2024 Patient encounter procedure 04/12/2024 9:45 AM EDT Office Visit [facility] [address] [facility] 5th [place] [phone] [place] [address] Department [place] [address] [facility] Start: 03-30-2024 Hemoglobin A1c measurement Diabetes: Hemoglobin A1C [facility] Start: 01-26-2024 End: 01-26-2024 Clinical Support 01/26/2024 10:30 AM EDT Clinical Support [facility] [address] [place] [phone] [facility] Start: 01-24-2024 End: 01-24-2024 Patient encounter procedure 01/24/2024 11:45 AM EDT Office Visit [facility] [address] [place] [phone] [place] [address] [place] [address] [facility] Start: 01-10-2024 End: 01-10-2024 Patient encounter procedure 01/10/2024 10:30 AM EDT Appointment [facility] [address] [place] [phone] [facility] Start: 01-07-2024 End: 01-07-2024 Patient encounter procedure 01/07/2024 11:30 AM EDT Appointment [facility] [address] [place] [phone] [facility] Start: 01-06-2024 End: 01-06-2024 Patient encounter procedure [facility] Start: 01-05-2024 End: 01-05-2024 Telemedicine consultation with patient 01/05/2024 11:00 AM EDT Telemedicine Clinical Support [facility] [address] [place] [address] Alesha Hernandez, HOME OFFICE CLAIMS EXAMINER [address] [place] [address] [facility] Start: 12-30-2023 End: 12-30-2023 Patient encounter procedure 12/30/2023 2:45 PM EDT Office Visit [facility] [address] [place] [phone] Ericka Villela MD [address] [facility], [address] [place] [address] [facility] Start: 12-30-2023 End: 02-28-2025 DBT Breast - bilateral BI mammo bilateral screening tomosynthesis Imaging Routine Screening mammogram for breast cancer Expected: 12/30/2023, Expires: 02/28/2025 [facility] Service Area Work Phone: Comment on above: Expected: 12/30/2023, Expires: Start: 12-30-2023 End: 12-29-2024 DXA Skeletal system Views for bone density XR DEXA bone density Imaging Routine Asymptomatic menopausal state Expected: 12/30/2023, Expires: 12/29/2024 [facility] Work Phone: Comment on above: Expected: 12/30/2023, Expires: 5 Start: 12-23-2023 End: 12-23-2023 Patient encounter procedure 12/23/2023 11:15 AM EST Office Visit [facility] [address] [phone] Ericka Villela MD [address] [facility], [address] [address] [facility] Start: 12-18-2023 Lipid panel Lipid Panel [facility] Start: 12-18-2023 Urine screening for protein Diabetes: Urine Protein Screening [facility] Start: 12-17-2023 End: 10-28-2024 25-hydroxyvitamin D3 [Mass/volume] in Serum or Plasma Vitamin D 25-Hydroxy,Total (for eval of Vitamin D levels) Lab Routine Age-related osteoporosis without current pathological fracture Gastroesophageal reflux disease without esophagitis Primary hypertension Vitamin D deficiency Vitamin B12 deficiency Type 2 diabetes mellitus without complication, without long-term current use of insulin ([facility]) Other vitamin B12 deficiency anemia Hypercholesterolemia Expected: 12/17/2023, Expires: 10/28/2024 [facility] Work Phone: Comment on above: Expected: 12/17/2023, Expires: Start: 12-17-2023 End: 10-28-2024 CBC panel - Blood by Automated count CBC Lab Routine Age-related osteoporosis without current pathological fracture Gastroesophageal reflux disease without esophagitis Primary hypertension Vitamin D deficiency Vitamin B12 deficiency Type 2 diabetes mellitus without complication, without long-term current use of insulin (CMS/HCC) Other vitamin B12 deficiency anemia Hypercholesterolemia Expected: 12/17/2023, Expires: 10/28/2024 [facility] Work Phone: Comment on above: Expected: 12/17/2023, Expires: Start: 12-17-2023 End: 10-28-2024 Comprehensive metabolic 2000 panel - Serum or Plasma Comprehensive Metabolic Panel Lab Routine Age-related osteoporosis without current pathological fracture Gastroesophageal reflux disease without esophagitis Primary hypertension Vitamin D deficiency Vitamin B12 deficiency Type 2 diabetes mellitus without complication, without long-term current use of insulin (CMS/[facility]) Other vitamin B12 deficiency anemia Hypercholesterolemia Expected: 12/17/2023, Expires: 10/28/2024 [facility] Work Phone: Comment on above: Expected: 12/17/2023, Expires: Start: 12-17-2023 End: 10-28-2024 Hemoglobin A1c/Hemoglobin.total in Blood Hemoglobin A1C Lab Routine Age-related osteoporosis without current pathological fracture Gastroesophageal reflux disease without esophagitis Primary hypertension Vitamin D deficiency Vitamin B12 deficiency Type 2 diabetes mellitus without complication, without long-term current use of insulin (CMS/[facility]) Other vitamin B12 deficiency anemia Hypercholesterolemia Expected: 12/17/2023, Expires: 10/28/2024 [facility] Work Phone: Comment on above: Expected: 12/17/2023, Expires: Start: 12-17-2023 End: 10-28-2024 Lipid 1996 panel - Serum or Plasma Lipid Panel Lab Routine Age-related osteoporosis without current pathological fracture Gastroesophageal reflux disease without esophagitis Primary hypertension Vitamin D deficiency Vitamin B12 deficiency Type 2 diabetes mellitus without complication, without long-term current use of insulin (CMS/HCC) Other vitamin B12 deficiency anemia Hypercholesterolemia Expected: 12/17/2023, Expires: 10/28/2024 [facility] Service Area Work Phone: Comment on above: Expected: 12/17/2023, Expires: 5 Start: 12-17-2023 End: 10-28-2024 Microalbumin/Creatinine [Mass Ratio] in Urine Albumin , Urine Random Lab Routine Age-related osteoporosis without current pathological fracture Gastroesophageal reflux disease without esophagitis Primary hypertension Vitamin D deficiency Vitamin B12 deficiency Type 2 diabetes mellitus without complication, without long-term current use of insulin ([facility]) Other vitamin B12 deficiency anemia Hypercholesterolemia Expected: 12/17/2023, Expires: 10/28/2024 [facility] Work Phone: Comment on above: Expected: 12/17/2023, Expires: Start: 12-17-2023 End: 10-28-2024 Thyrotropin [Units/volume] in Serum or Plasma Thyroid Stimulating Hormone Lab Routine Age-related osteoporosis without current pathological fracture Gastroesophageal reflux disease without esophagitis Primary hypertension Vitamin D deficiency Vitamin B12 deficiency Type 2 diabetes mellitus without complication, without long-term current use of insulin ([facility]) Other vitamin B12 deficiency anemia Hypercholesterolemia Expected: 12/17/2023, Expires: 10/28/2024 [facility] Work Phone: Comment on above: Expected: 12/17/2023, Expires: Start: 11-29-2023 End: 11-29-2023 Patient encounter procedure 11/29/2023 11:00 AM EST Office Visit [facility] [address] [place] [phone] [place] [address] [place] [address] [facility] Start: 11-25-2023 End: 11-25-2023 Clinical Support 11/25/2023 10:45 AM EST Clinical Support [facility] [address] [place] [phone] [facility] Start: 10-28-2023 End: 10-28-2023 Patient encounter procedure 10/28/2023 10:30 AM EST Office Visit [facility] [address] [place] [phone] Ericka Villela MD [address] [facility], [address] [place] [address] [facility] Start: 10-18-2023 Advance Directive Discussion Advance Directive Discussion [facility] Start: 09-22-2023 End: 09-22-2023 Patient encounter procedure 09/22/2023 11:40 AM EST Appointment [facility] [address] [place] [address] [place] [address] [facility], [address] [place] [address] [facility] Start: 09-20-2023 End: 09-20-2023 ambulatory 09/20/2023 2:30 PM EST Evaluation [facility] [address] [place] [address] Alesha Hernandez, JOSÉ MIGUEL [address] [address] Department of Rehabilitation Services [place], [place] [phone] [facility] Start: 09-17-2023 End: 09-17-2023 Clinical Support [facility] Start: 09-06-2023 End: 09-06-2023 Patient encounter procedure 09/06/2023 11:00 AM EST Procedure Visit [facility] [address] [place] [address] [place] [address] [address] [place], [place] [phone] [facility] Start: 08-31-2023 End: 08-31-2024 Creatinine [Mass/volume] in Serum or Plasma [facility] Work Phone: Comment on above: Expected: 08/31/2023 (Approximate), Expi res: 08/31/2024 Start: 08-31-2023 End: 08-31-2024 CT Neck W contrast IV CT soft tissue neck w IV contrast Imaging Routine Hoarseness or changing voice Paresis of left vocal fold Expected: 08/31/2023, Expires: 08/31/2024 [facility] Service Area Work Phone: Comment on above: Expected: 08/31/2023, Expires: 4 Start: 08-31-2023 End: 08-31-2024 Esophagogastroduodenoscopy EGD Endoscopy Routine Pharyngoesophageal dysphagia Expected: 08/31/2023, Expires: 08/31/2024 [facility] Work Phone: Comment on above: Expected: 08/31/2023, Expires: Start: 08-31-2023 End: 08-31-2023 Patient encounter procedure [facility] Start: 08-24-2023 End: 08-24-2023 Patient encounter procedure 08/24/2023 2:00 PM EST Office Visit [address] [phone] Jeremiah Pinto DMD, MD [address] [place] [address] [facility] Start: 08-19-2023 End: 08-19-2023 Patient encounter procedure 08/19/2023 10:30 AM EDT Office Visit [facility] [address] [phone] Ericka Villela MD [address] [facility] [address] [place] [address] [facility] Start: 07-28-2023 End: 07-28-2023 Patient encounter procedure 07/28/2023 11:00 AM EDT Appointment [facility] [address] [place] [address] [facility] Start: 07-22-2023 End: 07-22-2024 Erythrocyte sedimentation rate Sedimentation Rate Lab Routine Other dysphagia Hoarseness or changing voice Expected: 07/22/2023 (Approximate), Expires: 07/22/2024 [facility] Work Phone: Comment on above: Expected: 07/22/2023 (Approximate), Expi res: 07/22/2024 Start: 07-22-2023 End: 07-22-2024 Nuclear Ab [Presence] in Serum by Hep2 substrate EDWARD Lab Routine Other dysphagia Hoarseness or changing voice Expected: 07/22/2023 (Approximate), Expires: 07/22/2024 [facility] Work Phone: Comment on above: Expected: 07/22/2023 (Approximate), Expi res: 07/22/2024 Start: 07-22-2023 End: 07-22-2024 RF videography Hypopharynx and Esophagus Views for swallowing function W speech and W barium contrast PO FL modified barium swallow study Imaging Routine Other dysphagia Hoarseness or changing voice Expected: 07/22/2023, Expires: 07/22/2024 [facility] Service Area Work Phone: Comment on above: Expected: 07/22/2023, Expires: Start: 07-21-2023 NPV, Provider: Elijah Jose, Status: Pen, Time: 9:40 AM NPV, Provider: Elijah Jose, Status: Pen, Time: 9:40 AM [facility] [address] Work Phone: Start: 06-29-2023 [id number], Provider: Jovon Mckeon, Status: Pen, Time: 10:00 AM JERAMYFUMARIA ALEJANDRA, Provider: Jovon Mckeon, Status: Pen, Time: 10:00 AM [facility] [address] Work Phone: Start: 06-24-2023 End: 06-24-2023 Patient encounter procedure 06/24/2023 10:15 AM EDT Office Visit [facility] [address] [place] [phone] Ericka Villela MD [address] [facility], [address] [place] [address] [facility] Start: 06-18-2023 COVID-19 Vaccine () COVID-19 Vaccine () [facility] Start: 06-18-2023 Influenza vaccination Influenza Vaccine (#1) [facility] Start: 06-08-2023 Screening for malignant neoplasm of colon [facility] Start: 05-10-2023 End: 12-25-2023 DXA Skeletal system Views for bone density XR DEXA bone density Imaging Routine Age-related osteoporosis without current pathological fracture Expected: 05/10/2023, Expires: 12/25/2023 [facility] Service Area Work Phone: Comment on above: Expected: 05/10/2023, Expires: Start: 05-08-2023 Screening for osteoporosis Bone Density Scan [facility] Start: 04-24-2023 Screening for malignant neoplasm of cervix [facility] Start: 04-21-2023 Screening for malignant neoplasm of colon [facility] Start: 2023 Pneumococcal Vaccine: 65+ (2 of 2 - PCV) Pneumococcal Vaccine: 65+ (2 of 2 - PCV) [facility] Start: 03-24-2023 End: 03-24-2023 Clinical Support 03/24/2023 11:00 AM EDT Clinical Support [facility] [address] [place] [phone] [facility] Start: 03-19-2023 Hemoglobin A1c measurement Diabetes: Hemoglobin A1C [facility] Start: 12-24-2022 Patient encounter procedure MCRANNUAL, Provider: Ericka Villela, Status: Pen, Time: 10:15 AM -[facility] Work Phone: Start: 12-02-2022 COVID-19 Vaccine (6 - Booster for Pfizer series) COVID-19 Vaccine (6 - Booster for Pfizer series) [facility] Start: 12-02-2022 COVID-19 Vaccine (6 - Pfizer risk series) COVID-19 Vaccine (6 - Pfizer risk series) [facility] Start: 12-02-2022 COVID-19 Vaccine (6 - Pfizer series) COVID-19 Vaccine (6 - Pfizer series) [facility] Start: 11-26-2022 Nursing evaluation of patient and report NURSEVST, Provider: NURSE VISIT,IM ASSOC, Status: Pen, Time: 11:15 AM [facility] Work Phone: Start: 10-29-2022 Nursing evaluation of patient and report NURSEVST, Provider: NURSE VISIT,IM ASSOC, Status: Pen, Time: 11:15 AM [facility] Work Phone: Start: 10-01-2022 Nursing evaluation of patient and report NURSEVST, Provider: NURSE VISIT,IM ASSOC, Status: Pen, Time: 11:15 AM [facility] Work Phone: Start: 09-03-2022 FUV, Provider: Ericka Villela, Status: Pen, Time: 11:15 AM FUV, Provider: Ericka Villela, Status: Pen, Time: 11:15 AM [facility] Work Phone: Start: 08-24-2022 Nursing evaluation of patient and report NURSEVST, Provider: NURSE VISIT,IM ASSOC, Status: Pen, Time: 11:00 AM [facility] Work Phone: Start: 07-27-2022 Nursing evaluation of patient and report NURSEVST, Provider: NURSE VISIT,IM ASSOC, Status: Pen, Time: 11:00 AM [facility] Work Phone: Start: 07-24-2022 Creatinine measurement Creatinine monitoring [facility] Work Phone: Start: 07-24-2022 Potassium monitoring Potassium monitoring [facility] Work Phone: Start: 06-29-2022 Nursing evaluation of patient and report NURSEVST, Provider: NURSE VISIT,IM ASSOC, Status: Pen, Time: 11:00 AM [facility] Work Phone: Start: 06-01-2022 Nursing evaluation of patient and report NURSEVST, Provider: NURSE VISIT,IM ASSOC, Status: Pen, Time: 11:00 AM [facility] Work Phone: Start: 05-08-2022 Screening for osteoporosis Bone Density Scan [facility] Start: 05-05-2022 NPV, Provider: Kel Pozo, Status: Pen, Time: 10:10 AM NPV, Provider: Kel Pozo, Status: Pen, Time: 10:10 AM [facility] Work Phone: Start: 05-04-2022 Nursing evaluation of patient and report NURSEVST, Provider: NURSE VISIT,IM ASSOC, Status: Pen, Time: 11:00 AM [facility] Work Phone: Start: 04-29-2022 FUV, Provider: Ericka Villela, Status: Pen, Time: 11:15 AM FUV, Provider: Ericka Villela, Status: Pen, Time: 11:15 AM [facility] Work Phone: Start: 2022 Nursing evaluation of patient and report NURSEVST, Provider: NURSE VISIT,IM ASSOC, Status: Pen, Time: 11:00 AM [facility] Work Phone: Start: 03-09-2022 Nursing evaluation of patient and report NURSEVST, Provider: NURSE VISIT,IM ASSOC, Status: Pen, Time: 11:00 AM [facility] Work Phone: Start: 02-18-2022 FUV, Provider: Jovon Mckeon, Status: Pen, Time: 9:45 AM FUV, Provider: Jovon Mckeon, Status: Pen, Time: 9:45 AM [id number] [facility] Work Phone: Start: 02-09-2022 Nursing evaluation of patient and report NURSEVST, Provider: NURSE VISIT,IM ASSOC, Status: Pen, Time: 11:00 AM [facility] Work Phone: Start: 01-12-2022 Nursing evaluation of patient and report NURSEVST, Provider: NURSE VISIT,IM ASSOC, Status: Pen, Time: 11:00 AM [facility] Work Phone: Start: 01-01-2022 FUV, Provider: Ericka Villela, Status: Pen, Time: 11:00 AM FUV, Provider: Ericka Villela, Status: Pen, Time: 11:00 AM [facility] Work Phone: Start: 01-01-2022 Patient encounter procedure MCRANNUAL, Provider: Ericka Villela, Status: Pen, Time: 11:00 AM [facility] Work Phone: Start: 12-15-2021 Nursing evaluation of patient and report NURSEVST, Provider: NURSE VISIT,IM ASSOC, Status: Pen, Time: 11:00 AM [facility] Work Phone: Start: 11-17-2021 Nursing evaluation of patient and report NURSEVST, Provider: NURSE VISIT,IM ASSOC, Status: Pen, Time: 11:00 AM [facility] Work Phone: Start: 10-20-2021 Nursing evaluation of patient and report NURSEVST, Provider: NURSE VISIT,IM ASSOC, Status: Pen, Time: 11:00 AM [facility] Work Phone: Start: 09-22-2021 Nursing evaluation of patient and report NURSEVST, Provider: NURSE VISIT,IM ASSOC, Status: Pen, Time: 11:00 AM [facility] Work Phone: Start: 08-25-2021 EPV, Provider: Ericka Villela, Status: Pen, Time: 11:00 AM EPV, Provider: Ericka Villela, Status: Pen, Time: 11:00 AM [facility] Work Phone: Start: 08-06-2021 FUV, Provider: Jovon Mckeon, Status: Pen, Time: 9:45 AM FUV, Provider: Jovon Mckeon, Status: Pen, Time: 9:45 AM [id number] [facility] Work Phone: Start: 07-31-2021 FUV, Provider: Ericka Villela, Status: Pen, Time: 11:00 AM FUV, Provider: Ericka Villela, Status: Pen, Time: 11:00 AM [facility] Work Phone: Start: 07-25-2021 Screening for malignant neoplasm of breast Mammogram [facility] Start: 07-24-2021 End: 08-24-2021 Gastrointestinal Panel by DNA [facility] Work Phone: Comment on above: One Time for 1 Occurrences starting 04/2021 until 07/24/2021 Expected: 07/24/2021 , Expires: 08/24/2021 Start: 07-01-2021 Nursing evaluation of patient and report NURSEVST, Provider: NURSE VISIT,IM ASSOC, Status: Pen, Time: 11:00 AM [facility] [employer] Work Phone: Start: 06-18-2021 Influenza vaccination Flu vaccine (#1) [facility] Work Phone: Start: 06-03-2021 Nursing evaluation of patient and report NURSEVST, Provider: NURSE VISIT,IM ASSOC, Status: Pen, Time: 11:00 AM [facility] [employer] Work Phone: Start: 05-06-2021 Nursing evaluation of patient and report NURSEVST, Provider: NURSE VISIT,IM ASSOC, Status: Pen, Time: 11:15 AM [facility] [employer] Work Phone: Start: 04-19-2021 Xray Bone Density, Dexa 1 or More Sites [facility] [employer] Work Phone: Start: 12-11-2019 End: 12-11-2019 Appointment Appointment [facility] Work Phone: Start: 09-05-2019 Pneumococcal vaccination Pneumococcal Vaccine (2 of 2 - PCV) [facility] Start: 09-05-2019 Pneumococcal Vaccine: 50+ (2 of 2 - PCV) Pneumococcal Vaccine: 50+ (2 of 2 - PCV) [facility] Start: 09-05-2019 Pneumococcal Vaccine: 65+ Years (2 - PCV) Pneumococcal Vaccine: 65+ Years (2 - PCV) [facility] Start: 09-05-2019 Pneumococcal Vaccine: 65+ Years (2 of 2 - PCV) Pneumococcal Vaccine: 65+ Years (2 of 2 - PCV) [facility] Start: 09-05-2019 Pneumococcal Vaccine: Pediatrics (0 to 5 Years) and At-Risk Patients (6 to 64 Years) (2 - PCV) Pneumococcal Vaccine: Pediatrics (0 to 5 Years) and At-Risk Patients (6 to 64 Years) (2 - PCV) [facility] Start: 04-16-2019 25 hydroxy includes fractions if performed Vitamin D 25-Hydroxy [facility] Work Phone: Start: 04-16-2019 CBC W Auto Differential panel - Blood [facility] Work Phone: Start: 04-16-2019 HbA1c (Bld) [Mass fraction] Hemoglobin A1C [facility] Work Phone: Start: 04-16-2019 Lipid panel Lipid Panel [facility] Work Phone: Start: 03-31-2019 CT Cardiac Scoring [facility] Work Phone: Start: 02-24-2019 Xray Bone Density, Dexa 1 or More Sites [facility] Work Phone: Start: 08-26-2018 DTaP/Tdap/Td Vaccines (2 - Td or Tdap) DTaP/Tdap/Td Vaccines (2 - Td or Tdap) [facility] Start: 2018 RSV patients and/or patients aged 60+ years (1 - 1-dose 60+ series) RSV patients and/or patients aged 60+ years (1 - 1-dose 60+ series) [facility] Start: 2018 RSV Vaccine (1 - 1-dose 60+ series) RSV Vaccine (1 - 1-dose 60+ series) [facility] Start: 2018 RSV Vaccine (1 - Risk 60-74 years 1-dose series) RSV Vaccine (1 - Risk 60-74 years 1-dose series) [facility] Start: 2008 Zoster Vaccines (1 of 2) Zoster Vaccines (1 of 2) [facility] Start: 2003 Screening for malignant neoplasm of colon [facility] Start: 1979 Screening for malignant neoplasm of cervix [facility] Start: 1976 Annual PCP Team Chronic Disease Visit Annual PCP Team Chronic Disease Visit [facility] Start: 1976 Anxiety Screening Anxiety Screening [facility] Start: 1976 BP Controlled (<130/80) BP Controlled (<130/80) [facility] Start: 1976 Depression Screening Depression Screening [facility] Start: 1976 Hepatitis C screening Hepatitis C Screening [facility] Start: 1976 zzBP Controlled (<130/80) (Retired) zzBP Controlled (<130/80) (Retired) [facility] Start: 1968 Diabetic foot examination Diabetes: Foot Exam [facility] Start: 1968 Glaucoma screening Diabetes: Retinopathy Screening [facility] Start: 1968 Ophthalmic examination and evaluation Diabetes: Retinopathy Screening [facility] Start: 1959 MMR Vaccines (1 of 1 - Standard series) MMR Vaccines (1 of 1 - Standard series) [facility] Start: 1958 Annual wellness visit Medicare Initial Physical (IPPE) [facility] Start: 1958 HIV screening HIV Screening [facility] Start: 1958 Screening for malignant neoplasm of colon [facility] Start: 1958 Yearly Adult Physical Yearly Adult Physical [facility] Bacteria identified in Urine by Culture Urine Culture Microbiology Routine Urinary tract infection without hematuria, site unspecified Ordered: 03/07/2025 Urgent Care Work Phone: Comment on above: Ordered: 03/07/2025 End: 12-20-2023 Continuous Pulse oximetry, In Phase 1 [facility] Service Area Work Phone: Comment on above: Continuous until discontinued starting 0 12/20/2023 End: 01-06-2024 DBT Breast - bilateral [facility] Service Area Work Phone: Comment on above: Once for 1 Occurrences starting 01/06/20 24 until 01/06/2024 End: 01-10-2025 DBT Breast - bilateral [facility] Service Area Work Phone: Comment on above: Once for 1 Occurrences starting 01/11/20 until 01/10/2025 End: 09-22-2023 Moderate Sedation Moderate Sedation Procedures Routine Once for 1 Occurrences starting 09/22/2023 until 09/22/2023 [facility] Service Area Work Phone: Comment on above: Once for 1 Occurrences starting 09/22/20 until 09/22/2023 Optx dstl radl i-art ic fx/epiphysl sep 3 frag ORIF DISTAL RADIUS THREE OR MORE FRAGMENTS Closed fracture of distal end of left radius, unspecified fracture morphology, initial encounter [facility] Patient Education \cps-[id number]\CPS_ PtEducatio n\[facility]_FALL_PREVENTION.pd f [facility] Work Phone: Surgical pathology study [facility] Work Phone: Comment on above: Release Upon Ordering for 1 Occurrences starting 09/22/2023 End: 10-25-2024 XR Cervical spine 4 or 5 Views [facility] ice Area Work Phone: Comment on above: Once for 1 Occurrences starting 10/25/19 until 10/25/2024 XR Wrist - left PA a nd Lateral and Oblique XR WRIST GENERAL 3V PA/LAT/OBL LEFT Radiology Routine Closed Colles' fracture of left radius, initial encounter 02/14/2025 3:08 PM EDT [facility] Work Phone: XR Wrist - left PA a nd Lateral and Oblique [facility] Work Phone: Comment on above: Or[facility]: 02/28/2025 [facility]: Cyanocobalamin 1 000 MCG/ML Injection Solution Ordered: 05-Sep-2019 [facility] Work Phone: Cyanocobalamin 1 000 MCG/ML Injection Solution Ordered: 30-Jan-2020 Held [facility] Work Phone: NEGATED: Highlighted row has been ruled out! Planned Goals not documented [facility] Work Phone: Immunizations Immunization Date Immunization Notes Care Provider Fa ricardo 08-24-2024 influenza, high dose seasonal, preservative-free Ericka Villela MD Work Phone: [facility] Work Phone: 06-24-2023 Flu vaccine, quadrivalent, high-dose, preservative free, age 65y+ (FLUZONE) Ericka Villela MD Work Phone: [facility] Work Phone: 06-24-2023 influenza virus vacc ine, unspecified formulation Jovon Mckeon MD Work Phone: [facility] Work Phone: 10-07-2022 Pfizer COVID-19 Vac Bivalent 30 MCG/0.3ML Intramuscular Suspension Ericka Villela Work Phone: [id number] Work Phone: 10-07-2022 Pfizer Purple Cap SARS-CoV-2 Ericka Villela MD Work Phone: [facility] Work Phone: 09-03-2022 influenza, injectabl e, quadrivalent, preservative free; Translations: [Flulaval Quadrivalent 0.5 ML Intramuscular Suspension Prefilled Syringe] Ericka Villela Work Phone: [facility] Work Phone: Comment on above: Series: 09-03-2022 influenza, seasonal, injectable Ericka Villela MD Work Phone: [facility] Work Phone: 09-03-2022 influenza virus vacc ine, unspecified formulation Ericka Villela MD Work Phone: [facility] Work Phone: 03-08-2022 Comirnaty 30 MCG/0.3 ML Intramuscular Suspension Ericka Adonis Manohar Work Phone: -[facility] Work Phone: 01-06-2022 Pfizer Purple Cap SARS-CoV-2 Ericka Villela MD Work Phone: [facility] Work Phone: 07-28-2021 influenza, high dose seasonal, preservative-free; Translations: [Fluzone High-Dose 0.5 ML Intramuscular Suspension Prefilled Syringe] Ericka Villela Work Phone: [facility] Work Phone: Comment on above: Series: 06-16-2021 Pfizer-BioNTech COVI D-19 Vacc 30 MCG/0.3ML Intramuscular Suspension Ericka M Manohar Work Phone: [facility] 01-03-2021 Pfizer-BioNTech COVI D-19 Vacc 30 MCG/0.3ML Intramuscular Suspension Ericka Troncosoon Work Phone: [facility] 12-13-2020 Pfizer-BioNTech COVI D-19 Vacc 30 MCG/0.3ML Intramuscular Suspension Ericka Villela Work Phone: [facility] 08-12-2020 influenza, high dose seasonal, preservative-free; Translations: [Fluzone High-Dose 0.5 ML Intramuscular Suspension Prefilled Syringe] Ericka Villela [facility] Work Phone: Comment on above: Series: 08-01-2020 zoster vaccine recombinant Ericka Villela [facility] Work Phone: Comment on above: Series: 08-01-2020 zoster vaccine, unspecified formulation Ericka Villela MD Work Phone: [facility] Work Phone: 06-03-2020 zoster vaccine recombinant Ericka Villela [facility] Work Phone: Comment on above: Series: 06-03-2020 zoster vaccine, unspecified formulation Ericka Villela MD Work Phone: [facility] Work Phone: 08-15-2019 Seasonal, quadrivale nt, recombinant, injectable influenza vaccine, preservative free; Translations: [Flublok Quadrivalent 0.5 ML Intramuscular Solution Prefilled Syringe] [facility] Work Phone: Comment on above: Series: 07-19-2019 influenza, high dose seasonal, preservative-free Ericka Villela MD Work Phone: [facility] Work Phone: 09-05-2018 pneumococcal polysaccharide vaccine, 23 valent Ericka Villela [facility] Work Phone: Comment on above: Series: 07-29-2018 tetanus toxoid, redu ju diphtheria toxoid, and acellular pertussis vaccine, adsorbed [facility] Comment on above: Series: 07-08-2018 influenza, high dose seasonal, preservative-free; Translations: [Fluzone High-Dose 0.5 ML Intramuscular Suspension Prefilled Syringe] Ericka Villela [facility] Work Phone: Comment on above: Series: 07-06-2017 influenza, injectabl e, quadrivalent, preservative free; Translations: [Fluzone Quadrivalent 0.5 ML Intramuscular Suspension] Ericka Villela [facility] Work Phone: Comment on above: Series: 07-28-2016 influenza, injectabl e, quadrivalent, preservative free; Translations: [Fluzone Quadrivalent 0.5 ML Intramuscular Suspension] [facility] Comment on above: Series: 07-29-2015 influenza, seasonal, injectable; Translations: [Flulaval INJ] Ericka Villela [facility] Work Phone: Comment on above: Series: 08-02-2014 influenza, injectabl e, quadrivalent, preservative free; Translations: [Fluzone Quadrivalent 0.5 ML Intramuscular Suspension] Ericka Villela [facility] Work Phone: Comment on above: Series: 08-02-2013 influenza virus vacc ine, unspecified formulation Ericka Villela MD Work Phone: [facility] Work Phone: 07-21-2012 influenza, seasonal, injectable; Translations: [Flulaval INJ] Ericka Villela [facility] Work Phone: Comment on above: Series: 07-23-2011 influenza, seasonal, injectable Ericka Villela MD Work Phone: [facility] Work Phone: 07-23-2011 influenza virus vacc ine, unspecified formulation Ericka Villela MD [facility] Work Phone: 07-23-2011 influenza, seasonal, injectable Ericka Villela [facility] Work Phone: 07-25-2010 influenza, seasonal, injectable Ericka Villela MD Work Phone: [facility] Work Phone: 07-25-2010 influenza virus vacc ine, unspecified formulation Ericka Villela MD [facility] Work Phone: 07-25-2010 influenza, seasonal, injectable Ericka Villela [facility] Work Phone: 10-30-2009 novel influenza-H1N1 -09, preservative-free, injectable Ericka Villela [facility] Work Phone: influenza virus vacc ine, unspecified formulation Ericka Villela Work Phone: [facility] Work Phone: Comment on above: 07-23-11 Series: 07-25-10 Series: novel influenza-H1N1 -09, preservative-free, injectable Ericka Villela Work Phone: [facility] Work Phone: Comment on above: 10-30-09 Series: Payers Date Payer Category Payer Medicare [id number] 2021 Medicare (Managed Care) 1.2. [id number] 2021 Private Health Insurance [employer] A [facility] [id number] 2021-Present [address] [place] [address] [id number] 2021 Private Health Insurance [id number] 1960 Unknown [id number] 2.0.1.102771.3.579.2. 1958 Unknown [id number] 2.840.1.683159.3.579.2. 356 1958 Unknown [id number] 2.840.1.435908.3.579.2. 356 1958 Unknown [id number] 2.840.1.409054.3.579.2. 356 1958 Unknown [id number] 2.0.1.626899.3.579.2. 1958 Unknown [id number] 2.16840.1.011473.3.579.2. 356 1958 Unknown [id number] 2.16840.1.081401.3.579.2. 356 1958 Unknown [id number] 2.16840.1.467723.3.579.2. 356 1958 Unknown [id number] 2.840.1.575474.3.579.2. 356 1958 Unknown [id number] 2.16.840.1.739362.3.579.2. 356 1958 Unknown [id number] 2.16.840.1.845251.3.579.2. 1246 1958 Unknown [id number] 2.16.840.1.419692.3.579.2. 1242 1958 Unknown [id number] 2.16.840.1.997618.3.579.2. 1242 1958 Unknown [id number] 2.16840.1.304212.3.579.2. 1242 1958 Unknown [id number] 2.840.1.717068.3.579.2. 1243 1958 Unknown [id number] 2.840.1.689455.3.579.2. 1243 1958 Unknown [id number] 2.840.1.008242.3.579.2. 1243 1958 Unknown [id number] 2.840.1.044635.3.579.2. 1243 1958 Unknown [id number] 2.840.1.147751.3.579.2. 1243 1958 Unknown [id number] 2.840.1.682334.3.579.2. 1243 1958 Unknown [id number] 2.840.1.188056.3.579.2. 1243 1958 Unknown [id number] 2.840.1.574020.3.579.2. 1243 1958 Unknown [id number] 2.840.1.560320.3.579.2. 1243 1958 Unknown [id number] 2.840.1.718305.3.579.2. 1243 1958 Unknown [id number] 2.840.1.081070.3.579.2. 1244 1958 Unknown [id number] 2.16.840.1.532067.3.579.2. 1243 1958 Unknown [id number] 2.16.840.1.665299.3.579.2. 1243 1958 Unknown [id number] 2.16.840.1.968612.3.579.2. 1243 1958 Unknown [id number] 2.16.840.1.800112.3.579.2. 1243 1958 Unknown [id number] 2.840.1.240385.3.579.2. 1243 1958 Unknown [id number] 2.840.1.195638.3.579.2. 1244 1958 Unknown [id number] 2.840.1.930167.3.579.2. 1244 1958 Unknown [id number] 2.840.1.381457.3.579.2. 1244 1958 Unknown [id number] 2.840.1.692829.3.579.2. 1244 1958 Unknown [id number] 2.840.1.254279.3.579.2. 1244 1958 Unknown [id number] 2.840.1.719707.3.579.2. 1244 1958 Unknown [id number] 2.840.1.266933.3.579.2. 1244 1958 Unknown [id number] 2.840.1.414309.3.579.2. 1244 1958 Unknown [id number] 2.16840.1.274195.3.579.2. 1244 1958 Unknown [id number] 2.840.1.146160.3.579.2. 1245 1958 Unknown [id number] 2.16.840.1.412699.3.579.2. 1245 1958 Unknown [id number] 2.16.840.1.861001.3.579.2. 1245 Unknown Social History Date Type Detail Facility - - [facility] Work Phone: Start: 12-24-2022 End: 12-28-2024 Never smoker Never smoker [facility] Work Phone: Start: 07-24-2021 End: 10-28-2023 Tobacco smoking status NCIS Never smoker [facility] Work Phone: Start: 07-24-2021 End: 10-28-2023 Tobacco use and exposure Never used [facility] Start: 07-24-2021 End: 03-27-2025 Alcohol intake Current non-drinker of alcohol (finding) [facility] Work Phone: Start: 1960 Sex Assigned At Not on file [facility] Work Phone: Start: 12-14-2022 End: 01-30-2025 Exposure to SARS-CoV-2 (event) Not sure [facility] History of tobacco use Passive smoker [facility] Work Phone: Start: 02-24-2023 End: 03-07-2025 Alcohol intake Lifetime non-drinker (finding) [facility] Work Phone: Start: 12-24-2022 End: 12-28-2024 Alcohol Use Disorder Identification Test - Consumption [AUDIT-C] [facility] Work Phone: How often to you hav e a drink containing alcohol? Never [facility] Work Phone: How many standard dr inks containing alcohol do you have on a typical day? Patient does not drink [facility] Work Phone: (I/We) worried elizabeth er (my/our) food would run out before (I/we) got money to buy more. Never true [facility] Work Phone: Has the [employer], or [employer] threatened to shut off services in your home in past 12Mo No [facility] Work Phone: Are you now , , , , never or living with a partner? Never [facility] Work Phone: Do you feel stress - tense, restless, nervous, or anxious, or unable to sleep at night because your mind is troubled all the time - these days [OSQ] To some extent [facility] Work Phone: Start: 08-14-2024 End: 03-22-2025 Exposure to SARS-CoV-2 (event) Unable to assess [facility] NEGATED: Highlighted rowStart: 12-11-2019 End: 12-11-2019 Employment detail Employment detail [facility] Work Phone: NEGATED: Highlighted rowStart: 12-11-2019 End: 12-11-2019 How many days of moderate to strenuous exercise, like a brisk walk, did you do in the last 7 days? How many days of moderate to strenuous exercise, like a brisk walk, did you do in the last 7 days? [facility] Work Phone: NEGATED: Highlighted rowStart: 12-11-2019 End: 12-11-2019 Assertion Never smoker [facility] Work Phone: NEGATED: Highlighted rowStart: NINF History of tobacco use Passive smoker [facility] Work Phone: Medical Equipment Procedure Code Equipment Code Equipment Origin al Text Equipment Identifier Dates Bone, Block Cortical 7 X 14 X 11 Case [id number] Start: 07-27-2017 Comment on above: Description: Convert ed from [facility]. Please see archived information for full log information. Generic Implant 01 Case [id number] Start: 07-27-2017 Comment on above: Description: Convert ed from [facility]. Please see archived information for full log information. Additional Information:0.5 putty DBX Screw, Distraction, 14 Mm Case [id number] Start: 07-27-2017 Comment on above: Description: Convert ed from [facility]. Please see archived information for full log information. Generic Implant 03 Case [id number] Start: 07-27-2017 Comment on above: Description: Convert ed from [facility]. Please see archived information for full log information. Additional Information:3.5 13mm screw Generic Implant 04 Case [id number] Start: 07-27-2017 Comment on above: Description: Convert ed from [facility]. Please see archived information for full log information. Additional Information:4.0 13mm screw Generic Implant 02 Case [id number] Start: 07-27-2017 Comment on above: Description: Convert ed from [facility]. Please see archived information for full log information. Additional Information:19mm plate Dash Bn Smpx P Radpq Fd Strl - [id number] Start: 08-01-2013 Comp Fem 3 Rt Kn Ps Dash Trthln - [id number] Start: 08-01-2013 Stem Fem 50mm 12 mm Dash Trthln - [id number] Start: 08-01-2013 Ins Tib 3 13mm K n X3 Ps Trthln - [id number] Start: 08-01-2013 Baseplt Tib Trth ln 3 Kn Total - [id number] Start: 08-01-2013 Plate Acu-Loc 2 Long Narrow Bone Proximal Distal Volar Radius - [id number] Start: 02-19-2025 Screw Acu-Loc 2 2.3mm Full Thread Titanium 16mm Bone Lock Nonsterile Hand - [id number] Start: 02-19-2025 Screw Acu-Loc 2 2.3mm Full Thread Gold Titanium 18mm Bone Lock Nonsterile - [id number] Start: 02-19-2025 Screw 3.5mm Hexalobe 11mm Bone Lock Sterile Elbow - [id number] Start: 02-19-2025 Screw 10mm Bone Nonlocking Hexalobe 3.5mm Nonsterile Elbow - [id number] Start: 02-19-2025 Screw Acu-Loc 2 Full Thread Gold Titanium 14mm Bone Lock 2.3mm Nonsterile - [id number] Start: 02-19-2025 Functional Status Date Assessment Result Facility 04-02-2014 Are you deaf, or do you have serious difficulty hearing No 04/02/2014 1:50 PM EDT Rose Carlin [facility] No [facility] 04-02-2014 Are you blind, or do you have serious difficulty seeing, even when wearing glasses No 04/02/2014 1:50 PM EDT Rose Carlin [facility] No [facility] 04-02-2014 Do you have serious difficulty walking or climbing stairs Yes 04/02/2014 1:50 PM EDT Rose Carlin OCCA Yes [facility] 04-02-2014 Do you have difficul ty dressing or bathing No 04/02/2014 1:50 PM EDT Rose Carlin O[facility] No [facility] 04-02-2014 Because of a physica l, mental, or emotional condition, do you have difficulty doing errands alone such as visiting a physician's office or shopping No 04/02/2014 1:50 PM EDT Rose Carlin O[facility] No [facility] NEGATED: Highlighted row Functional performance Functional status health issues are not documented [facility] Work Phone: Mental Status Date Assessment Result Facility 04-02-2014 Because of a physical, mental, or emotional condition, do you have serious difficulty concentrating, remembering, or making decisions No 04/02/2014 1:50 PM EDT Rose Carlin O[facility] No [facility] NEGATED: Highlighted row Cognitive function [Interpretation] Cognitive status health issues are not documented Disease [facility] Work Phone: Clinical Notes 02-05-2020 to 04-03-2025 Jovon Mckeon MD - 04/03/2025 11:45 AM Yehuda Beck PA-C - 03/27/2025 11:30 AM Eleni Porter Tech - 03/27/2025 11:20 AM KarlyCynthiaNABIL/Julián - 03/13/2025 9:08 AM EDT Note Date & Type Note Facility 04-03-2025 History of Present illness Narrative Date of Service: 04/03/2025 Patient: Porsha House History of Present Illness: Mrs. Porsha House is a 64 year-old woman whom was seen today as a scheduled virtual follow up appointment with both audio/video, regarding her history of vasculitic neuropathy and the need to continue her prescribed Lyrica. I last saw her 09/19/2024 and she arrives alone. Since her previous appointment, She suffered a left wrist fracture and had ORIF of her left wrist 5 weeks ago. She is now noticing increased numbness to her pointer finger and thumb of that hand. There is concern of issues involving her carpal tunnel that baltazar require surgery in the future. With her history of numbness from her vasculitis, it is difficult to determine what is causing her symptoms. She continues to have significant weakness of her right hand along with the right wrist drop. This along with her numbness to her left, creates greater difficulty with activities requiring fine motor skills. She uses a splint at the right wrist. She is also needing to have her left knee replaced. Numbness present down front of her legs. Her numbness in the sole of the left big and second toes have not returned. She does not report any new weakness at this time. She continues to take Lyrica 75 mg daily for hand pain which does help. 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 She denied any shortness of breath or dysphagia following her treatments but dysphagia was present prior to her procedure. Otherwise, the past medical history, social history, and review of systems were reviewed. There are no significant changes. Neuromuscular Exam: The neurological examination was limited since this was a telemedicine visit. He was alert with normal speech, cognition and fund of knowledge. Impression: Ms. 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 She has been off Imuran since 2010. She has significant residual deficit with severe weakness of both hands more so on the right where she has significant right wrist to drop. She had a prior attempted tendon transfer many years ago but this was not successful. She suffered a left wrist fracture and had ORIF of her left wrist 5 weeks ago. She was evaluated by Dr. Gomez in 2019 who suggested a right wrist arthrodesis at neutral position in order to allow her to use her fingers more effectively. Surgery was delayed because of the COVID pandemic. She is planning to reschedule an appointment with another hand surgeon and consider surgery in the upcoming few months. She will continue to take Lyrica 75 mg daily for hand pain.. She will return to see me in 6 months and will call for any questions. Jovon Mckeon M.D., F.A.C.P. Director, [facility] laboratory [facility] Professor of Neurology [facility] Virtual or Telephone Consent An interactive audio and video telecommunication system which permits real time communications between the patient (at the originating site) and provider (at the distant site) was utilized to provide this telehealth service. Verbal consent was requested and obtained from Porsha House on this date, 04/03/25 for a telehealth visit and the patient's location was confirmed at the time of the visit. I personally spent 20 minutes on the day of the visit completing the review of the medical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 esophageal ulcer Personal history of other diseases of the digestive system History of hiatal hernia Personal history of other diseases of the digestive system History of irritable bowel syndrome Personal history of other diseases of the musculoskeletal system and connective tissue 08/15/2019 History of back pain Personal history of other diseases of the musculoskeletal system and connective tissue 03/10/2017 History of neck pain Personal history of other diseases of the nervous system and sense organs 08/30/2013 History of sciatica Personal history of other diseases of the respiratory system 12/23/2017 History of acute bronchitis Personal history of other diseases of the respiratory system 11/01/2018 History of acute sinusitis Personal history of other endocrine, nutritional and metabolic disease 07/28/2021 History of dehydration Personal history of other endocrine, nutritional and metabolic disease History of type 2 diabetes mellitus Personal history of other infectious and parasitic diseases 04/07/2019 History of tinea corporis Personal history of other mental and behavioral disorders History of depression Personal history of other specified conditions 03/02/2016 History of abnormal mammogram Personal history of other specified conditions 07/08/2018 History of fatigue Personal history of other specified conditions 11/20/2016 History of urinary frequency Personal history of urinary (tract) infections 07/08/2018 History of urinary tract infection Pleurodynia Rib pain Polyp of corpus uteri Endometrial polyp Sprain of ligaments of cervical spine, initial encounter 01/28/2017 Whiplash injury, acute Strain of other muscles, fascia and tendons at shoulder and upper arm level, left arm, initial encounter 12/31/2016 Strain of trapezius muscle, left, initial encounter Samuel's syndrome, unspecified Samuel syndrome Unspecified injury of thorax, initial encounter 01/29/2016 Rib injury Unspecified injury of thorax, initial encounter 12/04/2020 Rib injury [3] Past Surgical History: Procedure Laterality Date ADENOIDECTOMY BARIATRIC SURGERY BREAST BIOPSY Bilateral 02/20/2012 Biopsy Breast Percutaneous Needle Core BREAST LUMPECTOMY april 26 1900 CHOLECYSTECTOMY 02/20/2012 Cholecystectomy DILATION AND CURETTAGE OF UTERUS 02/20/2012 Dilation And Curettage ESOPHAGOGASTRODUODENOSCOPY 06/09/2022 Diagnostic Esophagogastroduodenoscopy GASTRIC BYPASS 07/05/2012 Gastric Surgery For Morbid Obesity Bypass With Maria Ines-en-Y HEEL SPUR SURGERY Bilateral OTHER SURGICAL HISTORY 02/20/2012 Hysteroscopy OTHER SURGICAL HISTORY 02/22/2012 Cervical Conization OTHER SURGICAL HISTORY 07/23/2017 Capsule Endoscopy OTHER SURGICAL HISTORY 06/09/2022 Colonoscopy OTHER SURGICAL HISTORY 07/28/2017 Ant Spinal Diskect Osteophytect Cerv Interspace Microdiscect OTHER SURGICAL HISTORY 05/07/2017 Screening for malignant neoplasms, colon OTHER SURGICAL HISTORY Bilateral surgery for heel spurs TONSILLECTOMY TOTAL KNEE ARTHROPLASTY Right VOCAL CORD INJECTION 12/20/23 fat inj to vocal cord WISDOM TOOTH EXTRACTION documented in this encounter [facility] Work Phone: 03-07-2025 Instructions Claude Thompson PA-C - 03/07/2025 9:20 AM EDT If any significant new symptoms (fever, abdominal pain, kidney pain, confusion., nausea), go to the ER. documented in this encounter [facility] Work Phone: 03-01-2025 History of Present illness Narrative Program_ID:[id number] Access Code: [email or web address] URL: [email or web address] Date: 03-01-2025 Prepared By: Sabrina Xiong Program Notes Exercises - Wrist Tendon Gliding - 4 x daily - 7 x weekly - 1 sets - 10 reps - Seated Elbow Flexion and Extension AROM - 4 x daily - 7 x weekly - 1 sets - 10 reps - Seated Forearm Pronation and Supination AROM - 4 x daily - 7 x weekly - 1 sets - 10 reps - Wrist Flexion Extension AROM - Palms Down - 4 x daily - 7 x weekly - 1 sets - 10 reps - Seated Wrist Radial and Ulnar Deviation AROM - 4 x daily - 7 x weekly - 1 sets - 10 reps Patient Education - CC Edema Swelling Control UE Images from the original note were not included. Episode Visit Count: 1 Therapist That Will Accept/Oversee The Plan Of Care: Sabrina Xiong Start of Care Date: 03/01/25 Onset Date: 02/03/25 Plan of Care Certification Date: 03/01/25 Next Certification Due Date: 05/30/25 Patient Identified by Name and Date of : Yes [facility] REHABILITATION AND SPORTS THERAPY OCCUPATIONAL THERAPY EVALUATION PLAN OF CARE: Assessment: Porsha House presents with diagnosis of ORIF right distal radius that interferes with physical activities, recreational activities . The patient presents with impairments in ADL's, overall function, range of motion, strength, and symptom management. PROMIS (Patient-Reported Outcomes Measurement Information System) scores were reviewed and identified as a rehabilitation concern. Prognosis for therapy is Good due to: current objective clinical presentation, good overall health status, acuteness of condition . The patient will benefit from skilled therapy services to meet the goals established for this plan of care as noted below. Goals for Episode of Care: established 03/01/25 Patient reported outcome of upper extremity will increase T-score by a minimum 5 points. Patient will report a good understanding of diagnosis and OT recommendations for progression of program. Patient will demonstrate independence with ongoing home recommendations/exercise program throughout therapy plan of care. Patient will increase AROM of Left wrist and forearm to preinjury levels in order to be able to improve function for prior functional tasks. Patient will independently demonstrate correct application of CUSTOM orthosis and verbalize understanding of proper wear/care. Patient Goals: Get back to normal use of hand Time Frame for Goals and Treatment : 08/13/25 Planned Interventions, Frequency, and Duration: Current Frequency: 1x/week Duration: 12 weeks Total Number of Visits Planned: 12 Planned Treatment Interventions: Therapeutic exercise (70805), Therapeutic activities (39536), Manual therapy (58371), Self-half-way management (77301), Patient/Family/Caregiver Education, Custom orthosis fabrication, Orthotics management and training ([id number]) PLAN FOR NEXT VISIT:Orthosis adjustments as needed. Patient independently and correctly demonstrated home mobility and symptom management program. Patient agreed to continue efforts. Will upgrade program according to patient progress. Patient demonstrates good understanding of plan of care and treatment. The above goals and plan of care were discussed and agreed upon by patient/family. Transfer of Care Due To: Closer to Home Patient transferring care to: YNES Tavera SUBJECTIVE: Patient seen for first postop visit by surgeon today s/p ORIF right distal radius. OT ordered for protective splinting and begin mobility and symptom management according to fracture treatment guidelines. Patient has a long history of vasculitis resulting in significant mobility deficit of the right hand and mild deficit in the left hand. Because of this patient had transferred all functional tasks to the left hand. Patient is struggling with task completion due to limited use of left hand since surgery. Functional Limitations: physical activities, recreational activities Prior Level of Function: Independent without limitations Patient Goals: Get back to normal use of hand Intake Information: Prescription present Previous Treatment: Surgery Falls Interview: No positive findings with falls interview Relevant History Past Relevant Medical Conditions: Comments Relevant Medical Conditions Comments: Vasculitis x 19 years resulting in significant mobility deficit in RUE and mild deficit in left. 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 Hobbies / Interests: tutors 2x/week Home Environment Patient Lives With: Family (15 y/o niece lives with her and she assists) Pain: Pain Pain Level: 6 Pain Location: Wrist - Left Description: Aching, Stiffness Frequency: With movement Post Treatment Pain Post Treatment Pain Level: Better Post Treatment Pain Location: Wrist - Left Post Treatment Pain Description: Aching PROMIS Scales 03/01/2025 Higher is Better Self-Eff Symptom - T Score 50 (Average) Self-Eff Symptom - Percentile 50 Upper Extremity - T Score 20 (severe dysfunction) Upper Extremity - Percentile 0 Proxy-reported T-scores: mean of general population = 50. 5 points is clinically meaningfully difference Percentiles provide an indication of how the patient's score ranks in relation to the general population. Higher percentile rankings indicate better function/quality of life. 50th percentile is the average of the general population and indicates half of respondents had a worse score. OBJECTIVE MEASURES WITH LEVEL OF FUNCTION: Sensation - Upper Extremity UE Light Touch Sensation: Grossly Intact Hand Skin / Wound: Scar Scar: Non-tender Edema Location: Left hand and wrist Edema Description: Mild Elbow AROM: WFL Wrist AROM: Left Limitation Left Hand AROM: WFL (at preinjury level) Thumb AROM: Left Limitation (this is at preinjury level) Strength: Welt Sole Layer Position 2 (Testing not indicated) Sensation: Denies tingling or numbness Dexterity/Coordination: Observed to be functional UE AROM L Forearm Supination: 75 Degrees L Forearm Pronation: 30 Degrees L Wrist Extension: 30 Degrees L Wrist Flexion: 15 Degrees Left Hand AROM: WFL (at preinjury level) Thumb AROM: Left Limitation (this is at preinjury level) Education: Education Learning Preferences: Demonstration, Explanation Barriers: None Learning/educational needs: Home exercise program, Plan of Care, Safety, Brace Fit, Procedure / Surgery Education Provided: Yes, see treatment interventions for education provided Education Provided To: Patient Education Mode/Type: Demonstration, Explanation/Discussion, Literature/Printed Materials, Performance Response to Education/Teach Back: Return Demonstration, States/Identifies TREATMENT: OT Treatment Interventions : Therapeutic Exercise, Therapeutic Activity, Custom Orthosis/Splint Fabrication Evaluation Therapeutic Exercise: 1: Patient instructed in AROM/tendon gliding exercises of elbow, forearm, wrist and hand and exercise handout texted. See below for detail of exercise. Patient performed correctly and agreed to incorporate into home program. 3: Access Code: [email or web address] URL: [email or web address] Date: 03/01/2025 Prepared by: Sabrina Xiong Exercises - Wrist Tendon Gliding - 4 x daily - 7 x weekly - 1 sets - 10 reps - Seated Elbow Flexion and Extension AROM - 4 x daily - 7 x weekly - 1 sets - 10 reps - Seated Forearm Pronation and Supination AROM - 4 x daily - 7 x weekly - 1 sets - 10 reps - Wrist Flexion Extension AROM - [place] - 4 x daily - 7 x weekly - 1 sets - 10 reps - Seated Wrist Radial and Ulnar Deviation AROM - 4 x daily - 7 x weekly - 1 sets - 10 reps Patient Education - CC Edema Swelling Control UE Skilled Intervention: Patient was educated in proper exercise technique and purpose for exercises. Reviewed and educated patient on additions/changes for home exercise program . Skilled judgment was used in selection of appropriate interventions. Therapeutic Activity: 1: Reviewed diagnosis, prognosis, protocol, precautions and POC. Patient voiced understanding. 2: Patient instructed in edema and pain reduction techniques and handout texted. See above for detail of handout. Patient demonstrated techniques correctly and agreed to incorporate into home program. 3: Patient instructed in gentle scar mobilization and agreed to perform as tolerated. Skilled Intervention: Educated on proper/safe technique for activities performed today. Activity progression based on professional judgment. Reviewed and educated patient on additions/changes for home program Custom orthosis: L 3906 WHO w/out joints (wrist, clam shell, radial/ulnar wrist gutter) Custom orthosis to provide immobilization, protection and support of left wrist to promote healing. Patient was instructed in care of orthosis and wearing schedule director speech except when exercising / bathing. . Skilled Intervention: Clinical knowledge and skills required for custom orthotic fabrication and wearing schedule Required independence for donning/doffing orthosis Billing * Evaluation Low Complexity: 1 Unit Therapeutic Exercise Treatment Minutes: 5 Therapeutic Activity Treatment Minutes: 10 * L 3906 WHO w/out joints (wrist, clam shell, radial/ulnar wrist gutter) Quantity: 1 Fabrication time for custom splint (minutes): 10 Skilled Treatment Time Minutes (timed and untimed codes): 40 Total Session Time (minutes): 40 Session Start Time : 1220 Session Stop Time : 1300 TAMMI Guzman,CHT documented in this encounter [facility] 03-01-2025 Note HNO ID: [id number] Author: SABRINA XIONG OTR/L Service: ? Author Type: Occupational Therapist Type: Progress Notes Filed: 03/01/2025 13:32 Note Text: Episode Visit Count: 1 Therapist That Will Accept/Oversee The Plan Of Care: Sabrina Xiong Start of Care Date: 03/01/25 Onset Date: 02/03/25 Plan of Care Certification Date: 03/01/25 Next Certification Due Date: 05/30/25 Patient Identified by Name and Date of : [facility] OCCUPATIONAL THERAPY EVALUATION PLAN OF CARE: Assessment: Porsha House presents with diagnosis of ORIF right distal radius that interferes with physical activities, recreational activities . The patient presents with impairments in ADL's, overall function, range of motion, strength, and symptom management. PROMIS? (Patient-Reported Outcomes Measurement Information System) scores were reviewed and identified as a rehabilitation concern. Prognosis for therapy is Good due to: current objective clinical presentation, good overall health status, acuteness of condition . The patient will benefit from skilled therapy services to meet the goals established for this plan of care as noted below. Goals for Episode of Care: established 03/01/25 Patient reported outcome of upper extremity will increase T-score by a minimum 5 points. Patient will report a good understanding of diagnosis and OT recommendations for progression of program. Patient will demonstrate independence with ongoing home recommendations/exercise program throughout therapy plan of care. Patient will increase AROM of Left wrist and forearm to preinjury levels in order to be able to improve function for prior functional tasks. Patient will independently demonstrate correct application of CUSTOM orthosis and verbalize understanding of proper wear/care. Patient Goals: Get back to normal use of hand Time Frame for Goals and Treatment : 05/30/25 Planned Interventions, Frequency, and Duration: Current Frequency: 1x/week Duration: 12 weeks Total Number of Visits Planned: 12 Planned Treatment Interventions: Therapeutic exercise (04990), Therapeutic activities (93378), Manual therapy (76261), Self-half-way management (03426), Patient/Family/Caregiver Education, Custom orthosis fabrication, Orthotics management and training ([id number],14629) PLAN FOR NEXT VISIT:Orthosis adjustments as needed. Patient independently and correctly demonstrated home mobility and symptom management program. Patient agreed to continue efforts. Will upgrade program according to patient progress. Patient demonstrates good understanding of plan of care and treatment. The above goals and plan of care were discussed and agreed upon by patient/family. Transfer of Care Due To: Closer to Home Patient transferring care to: Cynthia Pitsenbarger, OT [place] SUBJECTIVE: Patient seen for first postop visit by surgeon today s/p ORIF right distal radius. OT ordered for protective splinting and begin mobility and symptom management according to fracture treatment guidelines. Patient has a long history of vasculitis resulting in significant mobility deficit of the right hand and mild deficit in the left hand. Because of this patient had transferred all functional tasks to the left hand. Patient is struggling with task completion due to limited use of left hand since surgery. Functional Limitations: physical activities, recreational activities Prior Level of Function: Independent without limitations Patient Goals: Get back to normal use of hand Intake Information: Prescription present Previous Treatment: Surgery Falls Interview: No positive findings with falls interview Relevant History Past Relevant Medical Conditions: Comments Relevant Medical Conditions Comments: Vasculitis x 19 years resulting in significant mobility deficit in RUE and mild deficit in left. 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 / Interests: tutors 2x/week Home Environment Patient Lives With: Family (15 y/o niece lives with her and she assists) Pain: Pain Pain Level: 6 Pain Location: Wrist - Left Description: Aching, Stiffness Frequency: With movement Post Treatment Pain Post Treatment Pain Level: Better Post Treatment Pain Location: Wrist - Left Post Treatment Pain Description: Aching PROMIS Scales 03/01/2025 Higher is Better Self-Eff Symptom - T Score 50 (Average) Self-Eff Symptom - Percentile 50 Upper Extremity - T Score 20 (severe dysfunction) Upper Extremity - Percentile 0 Proxy-reported T-scores: mean of general population = 50. 5 points is clinically meaningfully difference Percentiles provide an indication of how the patient's sc (more content not included)... [facility] 03-01-2025 Note HNO ID: [id number] Author: YEHUDA KIRK PA-C Service: ? Author Type: Physician Turret Lathe Set Up Operator Type: Progress Notes Filed: 03/01/2025 11:51 Note Text: HAND SURGERY POST-OP NOTE Surgical Hx: Vasculitis on Lyrica with chronic right more than left hand numbness and motor loss 02/02/2025 fall, left intra-articular dorsally angulated distal radius fracture 02/19/2025 left distal radius ORIF, left thumb IANDD and wound closure Interval Hx: Patient is 10 days post op. She is doing well, denies any new numbness, tingling or pain. Exam: Left wrist Incisions are healing nicely, no signs of infection. Able to make a fist. No pain with gentle motion at the wrist. Sensation decreased at fingertips but this is her baseline. Imaging: Images taken today were personally reviewed and interpreted, these revealed 3 views of left wrist demonstrating well-maintained joint alignment and fracture alignment, hardware is intact with no signs of loosening or complication. Assessment/Plan: (S52.532D) Closed Colles' fracture of left radius with routine healing, subsequent encounter (primary encounter diagnosis) (Z98.890) Post-operative state Images were reviewed in detail with the patient today, she is doing great. Sutures were removed today, she tolerated well. I will send her to occupational therapy for a thermoplastic splint which she will wear at all times except for motion exercises and hygiene purposes. She may wash incisions with soap and water and may not soak them, submerge them or apply any lotions for the next 5 days. She will be nonweightbearing on this extremity for total of 6 weeks postop. I will have her try a Priscilla Brooks thumb spica brace on the right hand for comfort. Follow-up in 4 weeks with me in [place], x-rays Patient was also evaluated by Dr Tomas Kirk PA-C Hand Surgery The above reflects my independent exam and review. I saw and examined the patient myself personally. Parts of the HPI, ROS, exam and impression/plan may have been copied from my personal previous clinical note and remain pertinent. Current changes have been made and documented today. Other parts or date were deleted if not relevant for today. Plan as outlined. *This note was produced using speech recognition software and may contain errors related to that system including but not limited to punctuation, spelling, grammar, gender, and words or phrases that may be inappropriate. [facility] 03-01-2025 History of Present illness Narrative Images from the original note were not included. HAND SURGERY POST-OP NOTE Surgical Hx: Vasculitis on Lyrica with chronic right more than left hand numbness and motor loss 02/02/2025 fall, left intra-articular dorsally angulated distal radius fracture 02/19/2025 left distal radius ORIF, left thumb I&D and wound closure Interval Hx: Patient is 10 days post op. She is doing well, denies any new numbness, tingling or pain. Exam: Left wrist Incisions are healing nicely, no signs of infection. Able to make a fist. No pain with gentle motion at the wrist. Sensation decreased at fingertips but this is her baseline. Imaging: Images taken today were personally reviewed and interpreted, these revealed 3 views of left wrist demonstrating well-maintained joint alignment and fracture alignment, hardware is intact with no signs of loosening or complication. Assessment/Plan: (L02.229B) Closed Colles' fracture of left radius with routine healing, subsequent encounter (primary encounter diagnosis) (Z98.890) Post-operative state Images were reviewed in detail with the patient today, she is doing great. Sutures were removed today, she tolerated well. I will send her to occupational therapy for a thermoplastic splint which she will wear at all times except for motion exercises and hygiene purposes. She may wash incisions with soap and water and may not soak them, submerge them or apply any lotions for the next 5 days. She will be nonweightbearing on this extremity for total of 6 weeks postop. I will have her try a Priscilla Brooks thumb spica brace on the right hand for comfort. Follow-up in 4 weeks with me in [place], x-rays Patient was also evaluated by Dr Tomas Kirk PA-C Hand Surgery The above reflects my independent exam and review. I saw and examined the patient myself personally. Parts of the HPI, ROS, exam and impression/plan may have been copied from my personal previous clinical note and remain pertinent. Current changes have been made and documented today. Other parts or date were deleted if not relevant for today. Plan as outlined. *This note was produced using speech recognition software and may contain errors related to that system including but not limited to punctuation, spelling, grammar, gender, and words or phrases that may be inappropriate. documented in this encounter [facility] 02-19-2025 Note HNO ID: [id number] Author: VIDYA ADAMS RN Service: ? Author Type: Registered Nurse Type: Nursing Progress Note Filed: 02/19/2025 15:53 Note Text: Sister in law Sanches called and updated. She will be returning to the surgery center. [facility] 02-19-2025 Note HNO ID: [id number] Author: VIDYA ADAMS RN Service: ? Author Type: Registered Nurse Type: Nursing Progress Note Filed: 02/19/2025 15:52 Note Text: Dr. Gramajo speaking with patient at bedside. [facility] 02-19-2025 Note HNO ID: [id number] Author: GERMAINE TRAYLOR APRN.CRNA Service: Anesthesiology Author Type: Nurse Insurance Administrative Assistant Type: Anesthesia Procedure Notes Filed: 02/19/2025 13:40 Note Text: ANESTHESIOLOGY PROCEDURE NOTE Airway General Information Procedure Start Time/Medication Administration: 02/19/2025 1:23 PM Procedure End Time: 02/19/2025 1:23 PM Patient location during procedure: OR Timeout Performed Pre-procedure: timeout performed Consent Obtained: Yes Patient identity confirmed: arm band and patient Staffing Anesthesiologist: Ugo Khan MD INTELLIGENCE INTERN: Germaine Traylor APRN.INTELLIGENCE INTERN Performed by: anesthesiologist Indications and Patient Condition Indications for airway management: anesthesia Preoxygenated: yes anesthesia circuit Patient position: sniffing Method: asleep Final Airway Details Final airway type: supraglottic airway Number of attempts at approach: 1 Final Supraglottic Airway: i-gel Size 4 Seal Adequate: yes SIGNATURE: Germaine Traylor APRN.INTELLIGENCE INTERN PATIENT NAME: Porsha House DATE: February 19, 2025 TIME: 1:39 PM CSN: [id number]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 Patients with Diabetes Mellitus: Please follow up with the provider that manages your diabetes on how to prepare you for surgery. Any oral diabetic medications should be held day of surgery. For the following Medications, please HOLD THE MORNING OF SURGERY: Metformin (Glucophage), Pioglitazone (Actos), Glimepiride (Amaryl), Linagliptin (Tradjenta), Alogliptin (Nesina), Sitagliptin (Januvia), Saxagliptin (Onglyza) For the following Medications, please HOLD 2 DAYS PRIOR TO SURGERY: Glipizide (Glucotrol), Glyburide (DiaBeta and Glynase), Repaglinide (Prandin), Nateglinide (Starlix), Pramlintide (Symlin), Alogliptin/Metformin (Kazano) For the following Medications, please HOLD 3 DAYS PRIOR TO SURGERY: Canagliflozin (Invokana), Dapagliflozin (Farxiga), Empagliflozin (Jardiance), Bexagliflozin (Benzavvy ), Canagliflozin and Metformin (Invokamet), Dapagliglozin and Metformin (Xigduo XR), Empagliflozin and Metformin (Glyxambi), Empagliflozin and Metformin (Syndardy) For the following Medications, please HOLD 4 DAYS PRIOR TO SURGERY: Ertugliflozin (Steglatro) For the following Medications, please HOLD 7 DAYS PRIOR TO SURGERY: ALL GLP-1 AGONISTS Lixisenatide (Adlyxin), Exenatide suspension (Bydureon BCise), Exenatide (Byetta), Tirzepatide (Mounjaro), Semaglutide injection (Ozempic), Semaglutide tablets (Rybelsus), Albiglutide (Tanzeum), Dulaglutide (Trulicity), Liraglutide (Victoza), Semaglutide (Wegovy), Liraglutide (Saxenda), Degludec/Liraglutide (Xultophy) Insulin Medication Instructions: Please follow up with the provider that manages your Insulin and how to prepare you for surgery. Blood Thinning Medications: - Stop NSAIDS (Ibuprofen, Advil, Aleve, Motrin, Celebrex, Mobic, etc.) 7 days before surgery, as directed by your surgeon. - If you take any of the following blood thinners, please contact your surgeon and the physician who prescribes it for you in order to get perioperative instructions as soon as possible Blood thinners: Aspirin,Coumadin, Plavix, Eliquis, Pradaxa, Xarelto, Lovenox, Brilinta, Effient, Savaysa, Arixtra etc. - Stop Vitamin E, fish oil, Ginko, [place]'s Wort, flax seed oil, multivitamins, CBD oil, marijuana and other over the counter herbals and dietary supplements 7 days before surgery. - This would not apply to cancer patients who are prescribed Marinol or any other prescription form of marijuana or CBD. Pain Medications: - You may take Tylenol (Acetaminophen) or any of your current prescribed pain medications that do not contain aspirin or NSAIDS as needed. Weight Loss Medications: - Sympathomimetics such as Adipex-P (Phentermine): Stop 4 days before surgery. - Contrave (Naltrexone/Bupropion) Hold 2-3 days. - Qsymia (Phentermine/Topiramate - Please contact your prescribing provider for Pre op directions. ( depending on the patients dose this medication may need tapered off. They should get pre op directions from their prescribing provider.) If you start any new medications after today's visit, please contact the surgeon's office. Important Reminders: - If you have a stimulator, implant or pump that requires a remote please bring the remote with you day of surgery - If you are prescribed inhalers for breathing, continue using them AND bring them to the surgery center. - Candy, mints, gum and tobacco products are NOT permitted the morning of surgery. - Hearing aids, dentures and glasses may be worn the morning of surgery. - NO jewelry, body piercings, makeup, hairpins or contacts are to be worn the day of surgery. - NO keys, wallet, watches, or purses - NO lotion, creams, powders or deodorants on the skin the day of surgery - Wear loose, comfortable clothing that will accommodate bandages. - Your length of stay will be determined by your surgeon - You will need to have someone else (Family or friend) drive you home once discharged from the hospital. You are not allowed to drive yourself home after surgery. - YOU MUST HAVE A RESPONSIBLE MACHINE SCALLOP CUTTER 18 YEARS OR OLDER TAKE YOU HOME. A STUDENT MINISTRIES DIRECTOR, CAB OR UBER MACHINE SCALLOP CUTTER CANNOT BE MADE A RESPONSIBLE MACHINE SCALLOP CUTTER. - We recommend that a responsible person stays with you overnight to take care of you. - You cannot stay in a hotel alone after outpatient surgery. You will not be permitted to have your surgery, if you do not have someone to take care of you. --IF you are having a TOTAL KNEE, HIP REPLACEMENT OR ORTHOPEDIC SURGERY at the [facility]: - Orthopedic patients needing a walker, crutches, etc. should bring them into the surgery center the day of surgery. It is recommended patients have a 72 hour period between getting a vaccine and date of surgery. If you develop symptoms such as a fever, cold, or flu, or have other changes to your health within TWO DAYS of scheduled surgery or the morning of surgery, please contact the surgery center above. Personal Belongings: - Leave ALL valuables and money at home or with family members. - You will need a form of ID and insurance card to check in the morning of surgery. - You will have to wear a hospital gown during your stay but if you wish to bring undergarments for after surgery you may. Visitors: Any individual who is sick should not visit. On the day of surgery/procedure, current policy at this surgery center will allow 1 visitor in the Pre-Surgery area and no visitors in Recovery (PACU) unless it's a minor due to limited space. If you already have an Advance Directive, please fax a copy to [phone] or email to for it to be added to your chart. If you do not have an Advance Directive, you can find the appropriate form and more information at [email or web address]. We recommend that you complete the Advance Directive form found on the website and bring it with you the day of your surgery. It can be witnessed and scanned into your chart that day. Jasmine Stack APRN.JAHAIRA documented in this encounter [facility] 02-14-2025 Note HNO ID: [id number] Author: GUILLAUME MERRILL MD Service: ? Author Type: Physician Type: Progress Notes Filed: 03/14/2025 20:50 Note Text: here for follow-up of her left distal radius fracture.. She was placed into a short arm cast at the time of her last visit. She reports that her wrist is still painful. She has been taking oxycodone and Tylenol for pain relief objective: Short arm cast in good repair Patient with active range of motion of the digits. Subjective sensory changes in median nerve distribution similar to that which she was experiencing at the time of her injury x-rays left wrist show foreshortening, radial deviation, and dorsal angulation of distal radius Assessment: comminuted malaligned distal radius fracture. fracture is no longer acceptably aligned. I have recommended a referral to a hand subspecialist for evaluation and definitive care is that this will likely require open reduction internal fixation. Splane that her fracture this magnitude is beyond the scope of my practice she understands and agrees Plan: 1. Refer patient to Dr. Gramajo for definitive care. The patient does not stand that this may likely require surgical intervention. 2. New prescription for oxycodone issued until definitive care with the technical marketing consultant can be arranged [facility] 02-14-2025 History of Present illness Narrative here for follow-up of her left distal radius fracture.. She was placed into a short arm cast at the time of her last visit. She reports that her wrist is still painful. She has been taking oxycodone and Tylenol for pain relief objective: Short arm cast in good repair Patient with active range of motion of the digits. Subjective sensory changes in median nerve distribution similar to that which she was experiencing at the time of her injury x-rays left wrist show foreshortening, radial deviation, and dorsal angulation of distal radius Assessment: comminuted malaligned distal radius fracture. fracture is no longer acceptably aligned. I have recommended a referral to a hand subspecialist for evaluation and definitive care is that this will likely require open reduction internal fixation. Splane that her fracture this magnitude is beyond the scope of my practice she understands and agrees Plan: 1. Refer patient to Dr. Gramajo for definitive care. The patient does not stand that this may likely require surgical intervention. 2. New prescription for oxycodone issued until definitive care with the technical marketing consultant can be arranged documented in this encounter [facility] 02-14-2025 History of Present illness Narrative Radiology Service Progress Note PATIENT NAME: Porsha House DATE OF SERVICE: February 14, 2025 TIME: 3:09 PM PATIENT IDENTITY VERIFICATION COMPLETED USING TWO (2) IDENTIFIERS: Name and Date of confirmed by patient verbally. FALL SCREENING: Has the patient had 2 falls in the last year or 1 fall with injury or currently using an Ambulatory Assistive Device (Walker, Cane, Wheelchair, Crutches, etc.)? No PATIENT GENDER DATA: Assigned female at . status: : No status: NO. PATIENT RELEVANT IMPLANT DATA REVIEWED: Not Applicable PATIENT PRESENTS WITH AN IMPLANTABLE OR ATTACHED BORING MACHINE FEEDER: No RADIOLOGY DEPARTMENT: General X-ray: Exam(s) Completed: Upper Extremity X-Ray(s): Wrist, left PERIPHERAL IV DATA: Not applicable SIGNED BY: Tari Gan February 14, 2025 3:09 PM documented in this encounter [facility] 02-14-2025 Note HNO ID: [id number] Author: TRISTON REEDER Tech Service: ? Author Type: Muck Farmer Type: Progress Notes Filed: 02/14/2025 15:09 Note Text: Radiology Service Progress Note PATIENT NAME: Porsha House DATE OF SERVICE: February 14, 2025 TIME: 3:09 PM PATIENT IDENTITY VERIFICATION COMPLETED USING TWO (2) IDENTIFIERS: Name and Date of confirmed by patient verbally. FALL SCREENING: Has the patient had 2 falls in the last year or 1 fall with injury or currently using an Ambulatory Assistive Device (Walker, Cane, Wheelchair, Crutches, etc.)? No PATIENT GENDER DATA: Assigned female at . status: : No status: NO. PATIENT RELEVANT IMPLANT DATA REVIEWED: Not Applicable PATIENT PRESENTS WITH AN IMPLANTABLE OR ATTACHED BORING MACHINE FEEDER: No RADIOLOGY DEPARTMENT: General X-ray: Exam(s) Completed: Upper Extremity X-Ray(s): Wrist, left PERIPHERAL IV DATA: Not applicable SIGNED BY: Tari Gan February 14, 2025 3:09 PM [facility] 02-09-2025 Note HNO ID: [id number] Author: RICO WOLF Cast Tech Service: ? Author Type: Temperature Control Inspector Type: Progress Notes Filed: 02/09/2025 10:21 Note Text: PT ASSESSMENT - CASTING ROOM Porsha presents for Application of cast. Applied short cast: to Left arm Patient has been instructed in Care of cast.. Tarun Hannon [facility] 02-09-2025 Note HNO ID: [id number] Author: GUILLAUME MERRILL MD Service: ? Author Type: Physician Type: Progress Notes Filed: 03/02/2025 22:25 Note Text: Janie Story is a 64-year-old female with a history of vasculitis, presenting for right wrist pain and numbness following a recent fracture. Right Wrist Fracture: - Recent fracture of the right wrist. - Noted immediate swelling and a big bump at the fracture site. - Wears a wristband for support. - Reports increased numbness in the fingers, particularly towards the ends. - Numbness in the palm is more pronounced than usual. - Describes a burning sensation in the hand. - Difficulty with daily activities such as dressing and eating due to limited use of the right hand. - Denies significant bruising. - Able to drive using a spinner on the right side of the car. - Experienced a near-syncope episode last night, with sweating and feeling miserable; unsure if related to pain. Constitutional: (+) near syncope, (+) diaphoresis Musculoskeletal: (+) right wrist pain, (+) bilateral knee pain, (+) shoulder pain Neurological: (+) right hand numbness, (+) right hand tingling, (+) right hand burning sensation Objective There were no vitals taken for this visit. - Neurological: Decreased sensation in fingers and palm, more pronounced than usual. Labs: Tests: Imaging: - Wrist X-ray: Fracture identified with acceptable alignment and mild posterior tilt. Assessment/Plan 1. Closed Colles' fracture of left radius, initial encounter (S52.532A) - Fracture is well-aligned on imaging, though slightly dorsally angulated. - Due to patient's history of vasculitis, opted for conservative management with a short arm cast to allow finger mobility. - Scheduled follow-up appointment on the for repeat X-ray to assess alignment and healing progress. - Discussed potential for carpal tunnel syndrome due to fracture; if symptoms worsen or alignment deteriorates, surgical intervention including possible carpal tunnel release may be necessary. - Prescribed oxycodone 1 tablet every 6 hours as needed for pain, 7 days supply, sent to [facility] in [place]. - Advised patient to monitor for worsening numbness, tingling, or pain and to report any significant changes immediately. Attestation Recording using [employer] software for draft documentation of the visit was discussed with the patient/authorized union contract representative; all questions welcomed and answered. Patient/authorized union contract representative agreed to proceed [facility] 02-09-2025 History of Present illness Narrative Janie Story is a 64-year-old female with a history of vasculitis, presenting for right wrist pain and numbness following a recent fracture. Right Wrist Fracture: - Recent fracture of the right wrist. - Noted immediate swelling and a big bump at the fracture site. - Wears a wristband for support. - Reports increased numbness in the fingers, particularly towards the ends. - Numbness in the palm is more pronounced than usual. - Describes a burning sensation in the hand. - Difficulty with daily activities such as dressing and eating due to limited use of the right hand. - Denies significant bruising. - Able to drive using a spinner on the right side of the car. - Experienced a near-syncope episode last night, with sweating and feeling miserable; unsure if related to pain. Constitutional: (+) near syncope, (+) diaphoresis Musculoskeletal: (+) right wrist pain, (+) bilateral knee pain, (+) shoulder pain Neurological: (+) right hand numbness, (+) right hand tingling, (+) right hand burning sensation Objective There were no vitals taken for this visit. - Neurological: Decreased sensation in fingers and palm, more pronounced than usual. Labs: Tests: Imaging: - Wrist X-ray: Fracture identified with acceptable alignment and mild posterior tilt. Assessment/Plan 1. Closed Colles' fracture of left radius, initial encounter (S52.691A) - Fracture is well-aligned on imaging, though slightly dorsally angulated. - Due to patient's history of vasculitis, opted for conservative management with a short arm cast to allow finger mobility. - Scheduled follow-up appointment on the for repeat X-ray to assess alignment and healing progress. - Discussed potential for carpal tunnel syndrome due to fracture; if symptoms worsen or alignment deteriorates, surgical intervention including possible carpal tunnel release may be necessary. - Prescribed oxycodone 1 tablet every 6 hours as needed for pain, 7 days supply, sent to [facility] in [place]. - Advised patient to monitor for worsening numbness, tingling, or pain and to report any significant changes immediately. Attestation Recording using [place] software for draft documentation of the visit was discussed with the patient/authorized union contract representative; all questions welcomed and answered. Patient/authorized union contract representative agreed to proceed documented in this encounter [facility] 02-05-2025 Telephone encounter Note Spoke with patient. Appointment scheduled. [facility] 02-05-2025 Miscellaneous Notes Spoke with patient. Appointment scheduled. 9:WednesdayFebruary 09 Patient seen in [facility] on 02/03/2025 in regards to worsening 02/03/2025 Dr. Merrill is the provider national sales Would Dr. Merrill or another provider be willing to see patient in regards to their injury? Patient can be reached at [phone] Thank You! documented in this encounter [facility] 02-05-2025 Telephone encounter Note 9:WednesdayFebruary 09 [facility] 02-03-2025 Telephone encounter Note Patient seen in [facility] on 02/03/2025 in regards to worsening 02/03/2025 Dr. Merrill is the provider national sales Would Dr. Merrill or another provider be willing to see patient in regards to their injury? Patient can be reached at [phone] Thank You! [facility] 01-31-2025 Note HNO ID: [id number] Author: GUILLAUME MERRILL MD Service: ? Author Type: Physician Type: Progress Notes Filed: 01/31/2025 10:04 Note Text: Janie Story is a 64-year-old female with a history of vasculitis, presenting for bilateral knee pain. Bilateral Knee Pain: - Received cortisone injections in left knees in April, providing relief for 4-5 months. - Experiences pain when initially standing up, improving after walking a few steps. - Pain is more pronounced in the morning and when getting up from a seated position at work. - Pain is primarily on the medial side of the knees, with the right knee exhibiting non-painful popping. - Denies feelings of instability or buckling in the knees. - Pain sometimes radiates down the legs. - Unable to take NSAIDs due to allergies; uses Tylenol with variable relief. - Pain limits activities such as walking dogs. - Right knee was replaced over 10 years ago; pain is present in both knees. - Experiences pain in the front of the knees when going up and down stairs, requiring one step at a time. - Sleeps on back due to vasculitis; experiences stiffness in the knees upon waking. Musculoskeletal: (+) bilateral knee pain (worse on left), (+) right knee popping without pain, (-) knee buckling, (+) pain on stairs, (+) pain on initial standing Neurological: (+) bilateral lower leg numbness Objective There were no vitals taken for this visit. - Musculoskeletal: - Left Knee: - Crepitus of the patellofemoral joint, mild effusion, decreased patellar excursion. - ROM: Full extension, flexion to 90 degrees. - Provocative test: Laxity to valgus stress, no anterior-posterior instability. - Right Knee: - Good stability to varus stress, normal patellar excursion. - ROM: Full extension, flexion to 90 degrees. - Provocative test: No anterior-posterior instability. - Hips: Passive ROM pain-free with no limitations. - Neurological: Dorsiflexion and plantar flexion 5/5 bilaterally. Sensory changes noted on anterior shins. Imaging (04/28/2024) X-ray of bilateral knees: - Left knee: Full thickness articular wear in the medial compartment, bone on bone, patellofemoral joint arthritis - Right knee: Arthroplasty components well aligned, intact, no patellar resurfacing Large Joint Arthro/Inj: L knee joint 01/31/2025 10:03 AM The procedure site was prepped in the usual sterile fashion. Site: L knee joint Medications: 12 mg betamethasone acetate-betamethasone sodium phosphate 6 mg/mL Anesthetics: 4 mL lidocaine (PF) 10 mg/mL (1 %) Outcome: Tolerated well, no immediate complications Post-injection instructions were reviewed with the patient and the patient voiced understanding of these instructions. Informed Consent Consent Obtained: Verbal [place] Protocol A moment to CARE was completed. SIGN IN Personnel directly involved with the procedure wore the appropriate PPE. Special Equipment: N/A Patient/Surrogate Stated/Verified: Patient name, Date of , Relevant allergies and Intended procedure TIME OUT Relevant labs, photos, and/or imaging studies have been reviewed. Consent documented and matches the intended procedure. Correct side/site marked and visible. Medications required for procedure verified. No fire risk assessment and interventions applicable. No implant(s) inserted. SIGN OUT No specimen collected. Assesment Plan: 1. Primary osteoarthritis of left knee (M17.12) - Severe arthritis with full thickness articular wear in the medial compartment; bone on bone. - Discussed treatment options including cortisone injection and potential future knee replacement. - Administered cortisone injection today. - Continue independent exercises. - Follow-up in 6 months to reassess; potential for knee replacement in winter if symptoms persist. 2. Chronic pain of right knee (M25.561) 3. Presence of right artificial knee joint (Z96.651) - Right knee arthroplasty components well aligned and intact; no patellar resurfacing performed during initial replacement in 2012. - Pain likely due to patellofemoral joint arthritis. - Discussed possibility of patellar resurfacing if pain becomes intolerable. - Monitor symptoms; no immediate intervention required. 4. Vasculitis (I77.6) - Sensory changes and numbness in anterior shins. - No new treatment changes; continue current management. Attestation Recording using [place] software for draft documentation of the visit was discussed with the patient/authorized union contract representative; all questions welcomed and answered. Patient/authorized union contract representative agreed to proceed [facility] 01-31-2025 History of Present illness Narrative Associated Order(s): Large Joint Arthro/Inj: L knee joint Post-Procedure Diagnose(s): Primary osteoarthritis of left knee Janie Story is a 64-year-old female with a history of vasculitis, presenting for bilateral knee pain. Bilateral Knee Pain: - Received cortisone injections in left knees in April, providing relief for 4-5 months. - Experiences pain when initially standing up, improving after walking a few steps. - Pain is more pronounced in the morning and when getting up from a seated position at work. - Pain is primarily on the medial side of the knees, with the right knee exhibiting non-painful popping. - Denies feelings of instability or buckling in the knees. - Pain sometimes radiates down the legs. - Unable to take NSAIDs due to allergies; uses Tylenol with variable relief. - Pain limits activities such as walking dogs. - Right knee was replaced over 10 years ago; pain is present in both knees. - Experiences pain in the front of the knees when going up and down stairs, requiring one step at a time. - Sleeps on back due to vasculitis; experiences stiffness in the knees upon waking. Musculoskeletal: (+) bilateral knee pain (worse on left), (+) right knee popping without pain, (-) knee buckling, (+) pain on stairs, (+) pain on initial standing Neurological: (+) bilateral lower leg numbness Objective There were no vitals taken for this visit. - Musculoskeletal: - Left Knee: - Crepitus of the patellofemoral joint, mild effusion, decreased patellar excursion. - ROM: Full extension, flexion to 90 degrees. - Provocative test: Laxity to valgus stress, no anterior-posterior instability. - Right Knee: - Good stability to varus stress, normal patellar excursion. - ROM: Full extension, flexion to 90 degrees. - Provocative test: No anterior-posterior instability. - Hips: Passive ROM pain-free with no limitations. - Neurological: Dorsiflexion and plantar flexion 5/5 bilaterally. Sensory changes noted on anterior shins. Imaging (04/28/2024) X-ray of bilateral knees: - Left knee: Full thickness articular wear in the medial compartment, bone on bone, patellofemoral joint arthritis - Right knee: Arthroplasty components well aligned, intact, no patellar resurfacing Large Joint Arthro/Inj: L knee joint 01/31/2025 10:03 AM The procedure site was prepped in the usual sterile fashion. Site: L knee joint Medications: 12 mg betamethasone acetate-betamethasone sodium phosphate 6 mg/mL Anesthetics: 4 mL lidocaine (PF) 10 mg/mL (1 %) Outcome: Tolerated well, no immediate complications Post-injection instructions were reviewed with the patient and the patient voiced understanding of these instructions. Informed Consent Consent Obtained: Verbal [place] Protocol A moment to CARE was completed. SIGN IN Personnel directly involved with the procedure wore the appropriate PPE. Special Equipment: N/A Patient/Surrogate Stated/Verified: Patient name, Date of , Relevant allergies and Intended procedure TIME OUT Relevant labs, photos, and/or imaging studies have been reviewed. Consent documented and matches the intended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 fatigue. We discussed the treatment options to include, medical and surgical options. We have decided to proceed as follows: Voice therapy referral- hoarseness s/p fat injection to left VC on 12/20/23. Discussed plan with Dr. Elizabeth. Can follow up after working with speech therapy. documented in this encounter [facility] Work Phone: 05-09-2024 Telephone encounter Note Images from the original note were not included. Provider please sign ov note- unable to submit without [facility] 05-09-2024 Miscellaneous Notes Images from the original note were not included. Provider please sign ov note- unable to submit without Images from the original note were not included. === PHARMACY TEAM ==== ADDITIONAL INFORMATION NEEDED/REQUESTED Case Submitted: No Request Type: Provider Date of Service: tbs Additional Information Needed: please sign ov note Request from Payor by: N/A Email Sent to: phone encounter to GUILLAUME Jameson Requested Clinicals/Information Sent: N/A documented in this encounter [facility] 05-04-2024 Evaluation + Plan note Associated Problem(s): Vitamin B12 deficiency Patient will receive a B12 shot today since she is unable to absorb it from her gastric bypass surgery. [facility] Work Phone: 05-04-2024 Evaluation + Plan note Associated Problem(s): Senile osteoporosis Patient remains on calcium vitamin D and Prolia injections. DEXA scan was completed in December of this year [facility] Work Phone: 05-04-2024 Miscellaneous Notes Associated Problem(s): Vitamin B12 deficiency Patient will receive a B12 shot today since she is unable to absorb it from her gastric bypass surgery. Associated Problem(s): Senile osteoporosis Patient remains on calcium vitamin D and Prolia injections. DEXA scan was completed in December of this year Associated Problem(s): Diabetes mellitus (Multi) Patient is due for an A1c and was given an order today to complete it. Associated Problem(s): Hypertension Blood pressure stable and well-controlled. Associated Problem(s): Hypercholesterolemia Patient has high cholesterol and remains stable on atorvastatin 10 mg daily. Associated Problem(s): Cardiac risk counseling Cardiovascular risk discussed and, if needed, lifestyle modifications recommended, including nutritional choices, exercise, and elimination of habits contributing to risk. We agreed on a plan to reduce the current cardiovascular risk. Aspirin use/disuse was discussed after reviewing updated guidelines. Greater than 15 min in addition to visit time was spent in discussion and education of patient. Patient's current 12-year ASCVD risk is at 12.1%. Since she is already indeterminate we will not encourage her to take aspirin at this time. Patient is encouraged to work on diet exercise and weight loss She is already had by gastric bypass surgery in the past which is what triggered the vasculitis in the first place documented in this encounter [facility] Work Phone: 05-04-2024 Evaluation + Plan note Associated Problem(s): Diabetes mellitus (Multi) Patient is due for an A1c and was given an order today to complete it. [facility] Work Phone: 05-04-2024 Evaluation + Plan note Associated Problem(s): Hypertension Blood pressure stable and well-controlled. [facility] Work Phone: 05-04-2024 Evaluation + Plan note Associated Problem(s): Hypercholesterolemia Patient has high cholesterol and remains stable on atorvastatin 10 mg daily. [facility] Work Phone: 05-04-2024 Evaluation + Plan note Associated Problem(s): Cardiac risk counseling Cardiovascular risk discussed and, if needed, lifestyle modifications recommended, including nutritional choices, exercise, and elimination of habits contributing to risk. We agreed on a plan to reduce the current cardiovascular risk. Aspirin use/disuse was discussed after reviewing updated guidelines. Greater than 15 min in addition to visit time was spent in discussion and education of patient. Patient's current 12-year ASCVD risk is at 12.1%. Since she is already indeterminate we will not encourage her to take aspirin at this time. Patient is encouraged to work on diet exercise and weight loss She is already had by gastric bypass surgery in the past which is what triggered the vasculitis in the first place [facility] Work Phone: 05-04-2024 History of Present illness Narrative Subjective Patient ID: Porsha House is a 64 y.o. female who presents for 4 month follow for HTN, cholesterol, and diabetes management. Patient is here today for routine 4-month follow-up for hypertension cholesterol diabetes and medication management. Patient also needs a B12 shot today. Finally we took some extra time to review the patient's cardiac risk and her current 12-year ASCVD risk is 12.1%. Because it is only intermediate we do not recommend baby aspirin daily but did review with her all of her risk factors. She could work on diet and exercise but blood pressure and cholesterol are both stable. Review of Systems Constitutional: Negative for fatigue and fever. HENT: Negative for sore throat and trouble swallowing. Eyes: Negative for visual disturbance. Respiratory: Negative for cough and shortness of breath. Cardiovascular: Negative for chest pain, palpitations and leg swelling. Gastrointestinal: Negative for abdominal pain, constipation, diarrhea, nausea and vomiting. Genitourinary: Negative for dysuria and frequency. Musculoskeletal: Negative for arthralgias. Skin: Negative for rash. Neurological: Positive for weakness. Negative for dizziness and light-headedness. 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 Objective Medication Documentation Review Audit Reviewed by Ericka Villela MD (Physician) on 05/04/24 at 1419 Medication Order Taking? Sig Documenting Provider Last Dose Status atorvastatin (Lipitor) 10 mg tablet [id number] No Take 1 tablet (10 mg) by mouth once daily. Ericka Villela MD Taking Active calcium carbonate 600 mg calcium (1,500 mg) tablet [id number] No Take by mouth. Armen ProviderMD Taking Active celecoxib (CeleBREX) 200 mg capsule [id number] No Take 1 capsule (200 mg) by mouth once daily. Armen ProviderMD Not Taking Active cholecalciferol (Vitamin D3) 5,000 Units tablet [id number] No Take 1 tablet (5,000 Units) by mouth once daily. Armen ProviderMD Taking Active cyanocobalamin (Vitamin B-12) 1,000 mcg/mL injection [id number] No Inject 1 mL (1,000 mcg) into the muscle. Armen ProviderMD Taking Active cyanocobalamin, vitamin B-12, (B-12 COMPLIANCE INJ) [id number] No B12 INJECTIONS Armen ProviderMD Taking Active denosumab (Prolia) 60 mg/mL syringe [id number] No Inject 1 mL (60 mg total) under the skin 1 time for 1 dose. To be administered in office Ericka Villela MD Taking 04/12/24 0884 dextromethorphan-guaifenesin (Mucinex DM) 30-600 mg 12 hr tablet [id number] No Take 1 tablet by mouth every 12 hours. Do not crush, chew, or split. Historical Provider, Not Taking Active lisinopril 10 mg tablet [id number] No Take 1 tablet (10 mg) by mouth once daily. Use as directed Ericka Villela MD Taking Active loratadine (Claritin Reditabs) 10 mg disintegrating tablet [id number] No Take 1 tablet (10 mg) by mouth once daily. Historical Provider, Not Taking Active nystatin (Mycostatin) 100,000 unit/gram powder [id number] No Apply topically 2 times a day. Apply sparingly to affected area(s) Ericka Villela MD Taking Active pantoprazole (ProtoNix) 40 mg EC tablet [id number] No Take 1 tablet (40 mg) by mouth once daily in the morning. Take before meals. Ericka Villela MD Taking Active potassium chloride CR 10 mEq ER tablet [id number] No Take 1 tablet (10 mEq) by mouth once daily. Historical Provider, Taking Active pregabalin (Lyrica) 75 mg capsule [id number] No Take 1 capsule (75 mg) by mouth once daily. Jovon Mckeon MD Taking Active vitamin, iron-folic, () 27 mg iron-800 mcg folic acid tablet [id number] No Take 1 tablet by mouth once daily. Ericka Villela MD Taking Active sertraline (Zoloft) 50 mg tablet [id number] No Take 1 tablet (50 mg) by mouth once daily. Use as directed Ericka Villela MD Taking Active Allergies Allergen Reactions Ibuprofen Swelling, Anaphylaxis, Rash and Shortness of breath Naprelan Hives and Angioedema Azithromycin Other Sloughing of oral mucosa Other Unknown Skin is thin, tape peels skin off Nsaids (Non-Steroidal Anti-Inflammatory Drug) Rash BP 120/78 Pulse 78 Ht 1.575 m (5' 2) Wt 76.7 kg (169 lb) SpO2 96% BMI 30.91 kg/m Physical Exam Constitutional: Appearance: Normal appearance. She is obese. HENT: Head: Normocephalic and atraumatic. Nose: Nose normal. Eyes: Extraocular Movements: Extraocular movements intact. Pupils: Pupils are equal, round, and reactive to light. Cardiovascular: Rate and Rhythm: Normal rate and regular rhythm. Pulmonary: Breath sounds: Normal breath sounds. Abdominal: General: Abdomen is flat. Bowel sounds are normal. Palpations: Abdomen is soft. Musculoskeletal: Right lower leg: No edema. Left lower leg: No edema. 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 Neurological: Mental Status: She is alert. Assessment/Plan Problem List Items Addressed This Visit GERD (gastroesophageal reflux disease) Hypertension Blood pressure stable and well-controlled. Mononeuritis multiplex Hypercholesterolemia Patient has high cholesterol and remains stable on atorvastatin 10 mg daily. Vitamin B12 deficiency Patient will receive a B12 shot today since she is unable to absorb it from her gastric bypass surgery. Diabetes mellitus (Multi) - Primary Patient is due for an A1c and was given an order today to complete it. Relevant Orders Hemoglobin A1C Senile osteoporosis Patient remains on calcium vitamin D and Prolia injections. DEXA scan was completed in December of this year Cardiac risk counseling Cardiovascular risk discussed and, if needed, lifestyle modifications recommended, including nutritional choices, exercise, and elimination of habits contributing to risk. We agreed on a plan to reduce the current cardiovascular risk. Aspirin use/disuse was discussed after reviewing updated guidelines. Greater than 15 min in addition to visit time was spent in discussion and education of patient. Patient's current 12-year ASCVD risk is at 12.1%. Since she is already indeterminate we will not encourage her to take aspirin at this time. Patient is encouraged to work on diet exercise and weight loss She is already had by gastric bypass surgery in the past which is what triggered the vasculitis in the first place Other Visit Diagnoses B12 deficiency It has been a pleasure seeing you. Ericka Villela MD documented in this encounter [facility] Work Phone: 05-04-2024 Instructions Ericka Villela MD - 05/04/2024 2:00 PM EDT Get A1c now Follow up Dr Villela in 4 months for HTN etc 30 min appointment documented in this encounter [facility] Work Phone: 05-03-2024 Telephone encounter Note Images from the original note were not included. === PHARMACY TEAM ==== ADDITIONAL INFORMATION NEEDED/REQUESTED Case Submitted: No Request Type: Provider Date of Service: tbs Additional Information Needed: please sign ov note Request from Payor by: N/A Email Sent to: phone encounter to GUILLAUME Jameson Requested Clinicals/Information Sent: N/A [facility] 04-29-2024 Note IMPRESSION: Osteoart hrosis, showing mild interval progression Bow Maker Machine Tender: TATY Transcribe Date/Time: Apr 29 2024 11:19A Dictated by : MYRIAM CASTILLO MD This examination was interpreted and the report reviewed and electronically signed by: MYRIAM CASTILLO MD on Apr 29 2024 11:20AM EST [facility] 04-28-2024 Note HNO ID: [id number] Author: GUILLAUME MERRILL MD Service: ? Author Type: Physician Type: Progress Notes Filed: 05/25/2024 14:02 Note Text: [id number] Ms. House was last seen for left knee pain secondary to osteoarthritis almost three years. had the following plan implemented left knee corticosteroid injection She presents today for Follow Up of the Left Knee and Follow Up and Knee Replacement of the Right Knee. She reports that the left knee pain has returned and she is now developing some pain in the anterior aspect of the right knee for which she had an arthroplasty with an on resurfaced patella in 2012 Review of Systems Constitutional: Negative for fever. Respiratory: Negative for cough and shortness of breath. Cardiovascular: Negative for chest pain. History: PAIN EVALUATION 04/28/2024 1529 Pain Level: 3 Pain Location: Knee-Left Description: Aching Duration Amount of Time: -- ongoing Frequency: Continuous Intervention/Comfort measure: Relaxation The patient denies swelling, warmth, discharge, drainage, fevers, chills, sweats. She reports compliance with therapy, sling/splint/ambulatory device/dressing/wound care, and the use of medications. Previous treatments have included home rehabilitation and steroid injections. She reports no change in past medical AND surgical history, medications, allergies, social history, family history and review of systems since last visit, with the exception of the following: None Radiographs: XR KNEE GENERAL 4V AP BOTH/PA BOTH/LAT/MERC LEFT Narrative: * * *Final Report* * * DATE OF EXAM: Apr 28 2024 3:19PM GAURI 5202 - XR KNEE 4V AP/PA BOTH+LAT/SHERON LT / PROCEDURE REASON: M25.562-Left knee pain, unspecified chronicity * * * * Physician Interpretation * * * * PROCEDURE: Left knee INDICATION: Left knee pain, unspecified chronicity .Left knee pain TECHNIQUE: XR KNEE 4V AP/PA BOTH+LAT/SHERON LT COMPARISON: 04/30/2019 FINDINGS: Severe medial joint compartment narrowing with tricompartment spur formation. Moderate patellofemoral joint compartment narrowing and spurring. No fracture or significant joint effusion. Right TKA is evident. Impression: IMPRESSION: Osteoarthrosis, showing mild interval progression Bow Maker Machine Tender: [facility] Transcribe Date/Time: Apr 29 2024 11:19A Dictated by : MYRIAM CASTILLO MD This examination was interpreted and the report reviewed and electronically signed by: MYRIAM CASTILLO MD on Apr 29 2024 11:20AM EST Right knee does show significant cartilage wear on the unresurfaced patella Physical Examination: Left knee Inspection Skin Positive: Varus. Incision No evidence of surgical incisions. Atrophy No evidence of muscular atrophy. Range of Motion Knee 5-110degrees Patella Decreased patellar mobility Palpation Effusion 1+ effusion Tenderness medial joint line, medial patellar facet, and lateral patellar facet Crepitance Positive palpable patellofemoral crepitance Meniscus Negative medial and lateral Tyrese's test Stability Positive valgus instability, remainder of stability exam is normal Right knee well-healed midline incision Range of motion 0-1 15 Palpable tenderness to patellar compression Right knee stable to ligamentous testing Right leg neurovascularly intact Procedure: Large Joint Arthro/Inj: bilateral knee joints Informed Consent Consent Obtained: Verbal [place] Protocol A moment to CARE was completed. SIGN IN Personnel directly involved with the procedure wore the appropriate PPE. Special Equipment: N/A Patient/Surrogate Stated/Verified: Patient name, Date of , Relevant allergies and Intended procedure TIME OUT Intended patient and procedure match the source document(s). Consent documented and matches the intended procedure. Relevant labs, photos, and/or imaging studies have been reviewed. Correct side/site marked and visible. Medications required for procedure verified. No fire risk assessment and interventions applicable. No implant(s) inserted. 04/28/2024 4:03 PM The procedure site was prepped in the usual sterile fashion. Site: bilateral knee joints Medications (Right): 80 mg methylPREDNISolone acetate 40 mg/mL Medications (Left): 80 mg methylPREDNISolone acetate 40 mg/mL Anesthetics (Right): 4 mL lidocaine (PF) 10 mg/mL (1 %) Anesthetics (Left): 4 mL lidocaine (PF) 10 mg/mL (1 %) Outcome: Tolerated well, no immediate complications Post-injection instructions were reviewed with the patient and the patient voiced understanding of these instructions. SIGN OUT No specimen collected. No instruments, equipment or retained foreign bodies applicable. Post-procedure follow-up management communicated and Plan of Care Visit completed when applicable Assessment: Right knee pain secondary to osteoarticular wear patellar surface with a stable right femoral/tibial knee arthroplasty component. 2 (more content not included)... [facility] 04-28-2024 History of Present illness Narrative Associated Order(s): Large Joint Arthro/Inj: bilateral knee joints Post-Procedure Diagnose(s): Chondromalacia of right patella; Primary osteoarthritis of both knees Images from the original note were not included. [id number] Ms. House was last seen for left knee pain secondary to osteoarthritis almost three years. had the following plan implemented left knee corticosteroid injection She presents today for Follow Up of the Left Knee and Follow Up and Knee Replacement of the Right Knee. She reports that the left knee pain has returned and she is now developing some pain in the anterior aspect of the right knee for which she had an arthroplasty with an on resurfaced patella in 2013 Review of Systems Constitutional: Negative for fever. Respiratory: Negative for cough and shortness of breath. Cardiovascular: Negative for chest pain. History: PAIN EVALUATION 04/28/2024 1529 Pain Level: 3 Pain Location: Knee-Left Description: Aching Duration Amount of Time: -- ongoing Frequency: Continuous Intervention/Comfort measure: Relaxation The patient denies swelling, warmth, discharge, drainage, fevers, chills, sweats. She reports compliance with therapy, sling/splint/ambulatory device/dressing/wound care, and the use of medications. Previous treatments have included home rehabilitation and steroid injections. She reports no change in past medical & surgical history, medications, allergies, social history, family history and review of systems since last visit, with the exception of the following: None Radiographs: XR KNEE GENERAL 4V AP BOTH/PA BOTH/LAT/MERC LEFT Narrative: * * *Final Report* * * DATE OF EXAM: Apr 28 2024 3:19PM GAURI 5202 - XR KNEE 4V AP/PA BOTH+LAT/SHERON LT / PROCEDURE REASON: M25.562-Left knee pain, unspecified chronicity * * * * Physician Interpretation * * * * PROCEDURE: Left knee INDICATION: Left knee pain, unspecified chronicity .Left knee pain TECHNIQUE: XR KNEE 4V AP/PA BOTH+LAT/SHERON LT COMPARISON: 04/30/2019 FINDINGS: Severe medial joint compartment narrowing with tricompartment spur formation. Moderate patellofemoral joint compartment narrowing and spurring. No fracture or significant joint effusion. Right TKA is evident. Impression: IMPRESSION: Osteoarthrosis, showing mild interval progression Bow Maker Machine Tender: [facility] Transcribe Date/Time: Apr 29 2024 11:19A Dictated by : MYRIAM CASTILLO MD This examination was interpreted and the report reviewed and electronically signed by: MYRIAM CASTILLO MD on Apr 29 2024 11:20AM EST Right knee does show significant cartilage wear on the unresurfaced patella Physical Examination: Left knee Inspection Skin Positive: Varus. Incision No evidence of surgical incisions. Atrophy No evidence of muscular atrophy. Range of Motion Knee 5-110degrees Patella Decreased patellar mobility Palpation Effusion 1+ effusion Tenderness medial joint line, medial patellar facet, and lateral patellar facet Crepitance Positive palpable patellofemoral crepitance Meniscus Negative medial and lateral Tyrese's test Stability Positive valgus instability, remainder of stability exam is normal Right knee well-healed midline incision Range of motion 0-1 15 Palpable tenderness to patellar compression Right knee stable to ligamentous testing Right leg neurovascularly intact Procedure: Large Joint Arthro/Inj: bilateral knee joints Informed Consent Consent Obtained: Verbal [place] Protocol A moment to CARE was completed. SIGN IN Personnel directly involved with the procedure wore the appropriate PPE. Special Equipment: N/A Patient/Surrogate Stated/Verified: Patient name, Date of , Relevant allergies and Intended procedure TIME OUT Intended patient and procedure match the source document(s). Consent documented and matches the intended procedure. Relevant labs, photos, and/or imaging studies have been reviewed. Correct side/site marked and visible. Medications required for procedure verified. No fire risk assessment and interventions applicable. No implant(s) inserted. 04/28/2024 4:03 PM The procedure site was prepped in the usual sterile fashion. Site: bilateral knee joints Medications (Right): 80 mg methylPREDNISolone acetate 40 mg/mL Medications (Left): 80 mg methylPREDNISolone acetate 40 mg/mL Anesthetics (Right): 4 mL lidocaine (PF) 10 mg/mL (1 %) Anesthetics (Left): 4 mL lidocaine (PF) 10 mg/mL (1 %) Outcome: Tolerated well, no immediate complications Post-injection instructions were reviewed with the patient and the patient voiced understanding of these instructions. SIGN OUT No specimen collected. No instruments, equipment or retained foreign bodies applicable. Post-procedure follow-up management communicated and Plan of Care Visit completed when applicable Assessment: Right knee pain secondary to osteoarticular wear patellar surface with a stable right femoral/tibial knee arthroplasty component. 2. Left knee pain secondary to severe osteoarthritis medial compartment patellofemoral joint We have discussed the various treatment options including injection therapy, total knee arthroplasty left knee, resurface right patella and revision of tibial polyethylene insert. Patient does not wish to proceed with any surgical intervention at this time and is requesting injections. Plan: 1. Injection right and left knee as noted above 2. Continue independent range of motion/strengthening exercises 3. Continue right knee total knee precautions 4. Follow-up for repeat clinical evaluation documented in this encounter [facility] 04-28-2024 History of Present illness Narrative Radiology Service Progress Note PATIENT NAME: Porsha House DATE OF SERVICE: April 28, 2024 TIME: 3:19 PM PATIENT IDENTITY VERIFICATION COMPLETED USING TWO (2) IDENTIFIERS: Name and Date of confirmed by patient verbally. FALL SCREENING: Has the patient had 2 falls in the last year or 1 fall with injury or currently using an Ambulatory Assistive Device (Walker, Cane, Wheelchair, Crutches, etc.)? No PATIENT GENDER DATA: Female. status: : No status: NO. PATIENT RELEVANT IMPLANT DATA REVIEWED: Not Applicable PATIENT PRESENTS WITH AN IMPLANTABLE OR ATTACHED BORING MACHINE FEEDER: No RADIOLOGY DEPARTMENT: General X-ray: Exam(s) Completed: Lower Extremity X-Ray(s): Knee, AP / Lat / Tunne / Merchant Left and Wt. Bearing PERIPHERAL IV DATA: Not applicable SIGNED BY: Tari Sánchez April 28, 2024 3:19 PM documented in this encounter [facility] 04-28-2024 Note HNO ID: [id number] Author: ELENI CASE Tech Service: Radiology Author Type: Muck Farmer Type: Progress Notes Filed: 04/28/2024 15:19 Note Text: Radiology Service Progress Note PATIENT NAME: Porsha House DATE OF SERVICE: April 28, 2024 TIME: 3:19 PM PATIENT IDENTITY VERIFICATION COMPLETED USING TWO (2) IDENTIFIERS: Name and Date of confirmed by patient verbally. FALL SCREENING: Has the patient had 2 falls in the last year or 1 fall with injury or currently using an Ambulatory Assistive Device (Walker, Cane, Wheelchair, Crutches, etc.)? No PATIENT GENDER DATA: Female. status: : No status: NO. PATIENT RELEVANT IMPLANT DATA REVIEWED: Not Applicable PATIENT PRESENTS WITH AN IMPLANTABLE OR ATTACHED BORING MACHINE FEEDER: No RADIOLOGY DEPARTMENT: General X-ray: Exam(s) Completed: Lower Extremity X-Ray(s): Knee, AP / Lat / Tunne / Merchant Left and Wt. Bearing PERIPHERAL IV DATA: Not applicable SIGNED BY: Tari Sánchez April 28, 2024 3:19 PM [facility] 04-12-2024 History of Present illness Narrative Date of Service: 04/12/2024 Patient: Porsha House History of Present Illness: Mrs. Porsha House is a 64 year-old woman whom was seen today as a scheduled follow up appointment regarding a history of vasculitic neuropathy and the need to continue her prescribed Lyrica. I last saw her 02/18/2022 and she arrives alone. Since her previous appointment, she continues to have significant weakness of her right hand along with the right wrist drop. She feels that her left hand has not felt as numb and continues to use both hands for her daily activities. This creates greater difficulty with activities requiring fine motor skills. She puts her earring's on with pliers. She uses a splint at the right wrist. She has not returned after she was evaluated by Dr. Gomez. Her surgery planned, arthrodesis of the right wrist is still on hold and was cancelled due to COVID. She is also needing to have her left knee replaced and plans to have her arthrodesis 1st. Her numbness in the sole of the left big and second toes have not returned. She does not report any new weakness or falls at this time. She continues to take Lyrica 75 mg daily for hand pain. Last summer she suffered with hoarseness to her voice and was later seen by Dr Elizabeth. 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 [place]erson any shortness of breath or dysphagia. Dysphagia was present prior to her procedure. Otherwise, the past medical history, social history, and review of systems were reviewed. There are no significant changes. Vitals: 04/12/24 1008 BP: 115/72 Pulse: 71 Resp: 18 Temp: 36.3 C (97.3 F) Neuromuscular Exam: On motor examination she has excellent muscle strength at deltoids, biceps and triceps muscles bilaterally. She continues to have severe and asymmetrical weakness in both hands. There is a complete right wrist drop, partially related to the transfer with severe weakness of right fingers flexion, wrist flexion and interossei. Right wrist extension and finger extension slightly better. She has weakness of left thumb flexion and index flexion in the distribution of the median nerve. She has atrophy in both hands and to a lesser extent the forearms. She has sensory loss in both hands in a patchy distribution but mostly in the left median distribution and the right ulnar but also radial distributions. She has normal strength and sensation in lower extremities. Gait is normal Romberg test is negative. Impression: Ms. 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 She has been off Imuran since 2010. She has significant residual deficit with severe weakness of both hands more so on the right where she has significant right wrist to drop. She had a prior attempted tendon transfer many years ago but this was not successful. She was evaluated by Dr. Gomez in 2019 who suggested a right wrist arthrodesis at neutral position in order to allow her to use her fingers more effectively. Surgery was delayed because of the COVID pandemic. She is planning to reschedule an appointment with Dr. Gomez and consider surgery in the upcoming few months. She will continue to take Lyrica 75 mg daily for hand pain.. She will return to see me in 12 months and will call for any questions. Jovon Mckeon M.D., F.A.C.P. Director, [facility] Professor of Neurology [facility] I personally spent 30 minutes on the day of the visit completing the review of the medical record and outside records, obtaining history and performing an appropriate physical exam, patient care, counseling and education, placing orders, independently reviewing results, communicating with the patient and other providers, coordinating care and performing appropriate clinical documentation. documented in this encounter [facility] Work Phone: 01-24-2024 History of Present illness Narrative Chief Complaint Chief Complaint Patient presents with Post-op Pertinent History: Hoarseness started in 05/01/2023. She was noted to have a left vocal cord paresis s/p vocal cord injection on 08/31/2023. ? Related to vasculitis which started symptomatically below her clavicles in upper chest. Normal CT neck Interval History (11/2023): She is s/p fat injection in to the left vocal cord on 12/20/2023. She underwent speech therapy for rebalancing the voice. Today, she notes a stronger voice. Very pleased with her result. Exam: VOICE: Near normal, mild raspy hoarseness with improved breath support. Normal volume. RESPIRATION: Breathing comfortably, no stridor. ORAL CAVITY/OROPHARYNX/LIPS: Normal mucous membranes, normal floor of mouth/tongue/OP, no masses or lesions are noted. SKIN: Neck skin is without scar or injury. PSYCH: Alert and oriented with appropriate mood and affect. PROCEDURE NOTE: Recommended stroboscopy. Risks, benefits, and alternatives were explained. They wished to proceed and provides verbal consent. PROCEDURE: Flexible laryngoscopy with stroboscopy, CPT 05016 POSTPROCEDURE DIAGNOSIS: hoarseness INDICATIONS: Inability to tolerate mirror exam or abnormal findings on mirror, Stroboscopy performed to assess one of the followin. Diagnosis of symptomatic disorder involving the voice, swallow, upper aerodigestive tract, including ELLEN disorders, or 2. Preoperative evaluation of vocal cord function for individuals undergoing surgery where the RLN or vagus nerves are at risk of injury, or 3. Further evaluation of abnormalities of the upper aerodigestive tract discovered by another modality, such as CT, MRI, bronchoscopy or EGD Description of Procedure: After adequate afrin and lidocaine spray, I advanced the endoscope. Visualization of the nasopharynx, vallecula, posterior pharyngeal san, pyriform, epiglottis and post cricoid areas was unremarkable. The following laryngeal findings were noted: vocal cord movement was improved. Good bulk and tone of the left TVC. closure was improved with near complete closure Mucosal wave symmetric and periodic Compression was increased AP> FVC improved the subglottis was widely patent Pharyngeal wall squeeze was normal Procedure well tolerated. 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 She is s/p vocal cord injection with restylane on 08/31/2023. She is now s/p fat injection on 12/20/2023 with improved vocal quality, overall appearance of the left TVC, and good closure. Good surgical result We discussed: There are no restrictions to her voice. She will continue using her speech techniques to include a deep breath before phonation. She will follow up in 6 months, or sooner if there are changes to her voice. The patient's questions were answered. Scribe Attestation By signing my name below, Xin Christiansen Scribe attest that this documentation has been prepared under the direction and in the presence of Hannah Elizabeth MD. documented in this encounter [facility] Work Phone: 12-30-2023 Evaluation + Plan note Associated Problem(s): Screening for alcohol problem Alcohol screen was negative [facility] Work Phone: 12-30-2023 Evaluation + Plan note Associated Problem(s): Screening for multiple conditions Patient is active depression which she admits is a little worse right now but does not want to change her medication dose of sertraline Alcohol screen was negative [facility] Work Phone: 12-30-2023 Miscellaneous Notes Associated Problem(s): Screening for alcohol problem Alcohol screen was negative Associated Problem(s): Screening for multiple conditions Patient is active depression which she admits is a little worse right now but does not want to change her medication dose of sertraline Alcohol screen was negative Associated Problem(s): Medicare annual wellness visit, subsequent Annual wellness visit completed. Safety issues reviewed with the patient. Advance care planning also discussed and she is encouraged to get out power of die operator and living well. Patient would like to be a full code Associated Problem(s): GERD (gastroesophageal reflux disease) Reflux remains stable and no worsening or increase in symptoms recently Associated Problem(s): Vitamin B12 deficiency Since the gastric bypass surgery patient has required B12 injections. She was given 1 today Associated Problem(s): Senile osteoporosis Patient is due for her Prolia injection not till after January 20. We will set up a nurse visit for that and get it completed before January 29 so she can use her current lab work which was drawn yesterday Associated Problem(s): Diabetes mellitus (CMS/[facility]) Current A1c is 5.5% showing excellent control. Patient dropped off her urine today but urine microalbumin is pending Patient was reminded to get annual diabetic eye exams Associated Problem(s): Hypertension Blood pressure stable and well-controlled no changes necessary. This is an ongoing chronic problem Associated Problem(s): Hypercholesterolemia Patient is on atorvastatin 10 mg daily and complete blood work was finished yesterday. Liver enzymes remain normal and cholesterol LDL is mildly elevated but overall satisfactory. Patient does not want to go on higher dose of atorvastatin for fear of muscle aches Associated Problem(s): Full code status CODE STATUS was discussed with the patient today and they wish to be a full code. Patient understands that this may include CPR, cardioversion, intubation and ventilation if necessary. Patient still does not have a power of die operator or living will. She was given information about how to complete these documents and if and when she does to bring us a copy. documented in this encounter [facility] Work Phone: 12-30-2023 Evaluation + Plan note Associated Problem(s): Medicare annual wellness visit, subsequent Annual wellness visit completed. Safety issues reviewed with the patient. Advance care planning also discussed and she is encouraged to get out power of die operator and living well. Patient would like to be a full code [facility] Work Phone: 12-30-2023 Evaluation + Plan note Associated Problem(s): GERD (gastroesophageal reflux disease) Reflux remains stable and no worsening or increase in symptoms recently [facility] Work Phone: 12-30-2023 Evaluation + Plan note Associated Problem(s): Vitamin B12 deficiency Since the gastric bypass surgery patient has required B12 injections. She was given 1 today [facility] Work Phone: 12-30-2023 Evaluation + Plan note Associated Problem(s): Senile osteoporosis Patient is due for her Prolia injection not till after January 20. We will set up a nurse visit for that and get it completed before January 29 so she can use her current lab work which was drawn yesterday [facility] Work Phone: 12-30-2023 Evaluation + Plan note Associated Problem(s): Diabetes mellitus (CMS/HCC) Current A1c is 5.5% showing excellent control. Patient dropped off her urine today but urine microalbumin is pending Patient was reminded to get annual diabetic eye exams [facility] Work Phone: 12-30-2023 Evaluation + Plan note Associated Problem(s): Hypertension Blood pressure stable and well-controlled no changes necessary. This is an ongoing chronic problem [facility] Work Phone: 12-30-2023 Evaluation + Plan note Associated Problem(s): Hypercholesterolemia Patient is on atorvastatin 10 mg daily and complete blood work was finished yesterday. Liver enzymes remain normal and cholesterol LDL is mildly elevated but overall satisfactory. Patient does not want to go on higher dose of atorvastatin for fear of muscle aches [facility] Work Phone: 12-30-2023 Evaluation + Plan note Associated Problem(s): Full code status CODE STATUS was discussed with the patient today and they wish to be a full code. Patient understands that this may include CPR, cardioversion, intubation and ventilation if necessary. Patient still does not have a power of die operator or living will. She was given information about how to complete these documents and if and when she does to bring us a copy. [facility] Work Phone: 12-30-2023 History of Present illness Narrative Subjective Reason for Visit: Porsha House is an 63 y.o. female here for a Medicare Wellness visit. Past Medical, Surgical, and Family History reviewed and updated in chart. Reviewed all medications by prescribing practitioner or clinical pharmacist (such as prescriptions, OTCs, herbal therapies and supplements) and documented in the medical record. Patient is here for annual wellness visit as well as a B12 injection and management of her medical problems including vasculopathy, neuropathy, diabetes,High cholesterol and hypertension as well as medication management. Patient Care Team: Ericka Villela MD as PCP - General Ericka Villela MD as PCP - [employer] PCP Review of Systems Constitutional: Negative for chills, fatigue and fever. HENT: Negative for sore throat. Eyes: Negative for visual disturbance. Respiratory: Negative for cough and shortness of breath. Cardiovascular: Negative for chest pain, palpitations and leg swelling. Gastrointestinal: Negative for constipation, diarrhea, nausea and vomiting. Genitourinary: Negative for difficulty urinating, dysuria, frequency, hematuria and urgency. Musculoskeletal: Negative for arthralgias and myalgias. Skin: Negative for rash. Neurological: Positive for speech difficulty and weakness. Negative for dizziness, syncope, light-headedness and headaches. Objective Vitals: BP 117/69 (BP Location: Left arm, Patient Position: Sitting) Pulse 77 Ht 1.575 m (5' 2) Wt 78.3 kg (172 lb 9.6 oz) SpO2 97% BMI 31.57 kg/m Physical Exam Constitutional: Appearance: Normal appearance. HENT: Head: Normocephalic and atraumatic. Nose: Nose normal. Eyes: Extraocular Movements: Extraocular movements intact. Pupils: Pupils are equal, round, and reactive to light. Cardiovascular: Rate and Rhythm: Normal rate and regular rhythm. Pulmonary: Breath sounds: Normal breath sounds. Abdominal: General: Abdomen is flat. Bowel sounds are normal. Palpations: Abdomen is soft. Musculoskeletal: Right lower leg: No edema. Left lower leg: No edema. Comments: Patient is significant muscle atrophy in the upper and lower extremities from a previous vasculitis. She has a floppy right wrist which often needs a brace and limited range of motion of both of her hands and arms. Neurological: Mental Status: She is alert. Motor: Weakness present. Assessment/Plan Problem List Items Addressed This Visit GERD (gastroesophageal reflux disease) Current Assessment & Plan Reflux remains stable and no worsening or increase in symptoms recently Hypertension Current Assessment & Plan Blood pressure stable and well-controlled no changes necessary. This is an ongoing chronic problem Depression, major, single episode, severe (CMS/HCC) Hypercholesterolemia Current Assessment & Plan Patient is on atorvastatin 10 mg daily and complete blood work was finished yesterday. Liver enzymes remain normal and cholesterol LDL is mildly elevated but overall satisfactory. Patient does not want to go on higher dose of atorvastatin for fear of muscle aches Vitamin B12 deficiency Current Assessment & Plan Since the gastric bypass surgery patient has required B12 injections. She was given 1 today Diabetes mellitus ([facility]) Current Assessment & Plan Current A1c is 5.5% showing excellent control. Patient dropped off her urine today but urine microalbumin is pending Patient was reminded to get annual diabetic eye exams Medicare annual wellness visit, subsequent Current Assessment & Plan Annual wellness visit completed. Safety issues reviewed with the patient. Advance care planning also discussed and she is encouraged to get out power of die operator and living well. Patient would like to be a full code ACP (advance care planning) Overview Living will power of die operator and CODE STATUS were all discussed with the patient today. She does have a living will and DURABLE POWER OF PADDED BOX SEWER and needs to bring us an updated version since we do not have one on record. CODE STATUS was also discussed with the patient and she would like to be a full code. Full code status Overview Patient would like to be a full code and understands that this can be altered in the future. She is aware that this will include CPR, cardioversion intubation and ventilation if necessary. Current Assessment & Plan CODE STATUS was discussed with the patient today and they wish to be a full code. Patient understands that this may include CPR, cardioversion, intubation and ventilation if necessary. Patient still does not have a power of die operator or living will. She was given information about how to complete these documents and if and when she does to bring us a copy. Screening for multiple conditions Current Assessment & Plan Patient is active depression which she admits is a little worse right now but does not want to change her medication dose of sertraline Alcohol screen was negative Screening for alcohol problem Overview Alcohol screen was negative. Current Assessment & Plan Alcohol screen was negative Senile osteoporosis Current Assessment & Plan Patient is due for her Prolia injection not till after January 20. We will set up a nurse visit for that and get it completed before January 29 so she can use her current lab work which was drawn yesterday Other Visit Diagnoses Routine general medical examination at health care facility - Primary Other specified postprocedural states Relevant Medications vitamin, iron-folic, () 27 mg iron-800 mcg folic acid tablet Tinea corporis Relevant Medications nystatin (Mycostatin) 100,000 unit/gram powder Screening mammogram for breast cancer Relevant Orders BI mammo bilateral screening tomosynthesis Asymptomatic menopausal state Relevant Orders XR DEXA bone density B12 deficiency Relevant Medications cyanocobalamin (Vitamin B-12) injection 1,000 mcg (Completed) documented in this encounter [facility] Work Phone: 12-30-2023 Instructions Ericka Villela MD - 12/30/2023 2:45 PM EDT Advanced directives were discussed at your appointment today. It is recommended that you obtain and complete a living will and D POA (DURABLE POWER OF PADDED BOX SEWER for healthcare). You can complete these documents with an die operator if you have 1 or go to the website: [email or web address]. Please search the word living will and will take you directly to the form. Once you have completed these documents you can bring a copy to our office so we can add it to your medical record. [place] after 01/21/24 for Prolia shot (must be before 01/30/24) Get mammo Get dxa Follow up Dr Villela in 4 months 30 min appointment Please get Prevnar 20 vaccine and RSV vaccine documented in this encounter [facility] Work Phone: 12-20-2023 Miscellaneous Notes Images from the original note were not included. OPERATIVE NOTE Date: 12/20/2023 OR Location: [facility] OR Name: Porsha House : 1960, Age: 63 y.o., , Sex: female Surgeons Hannah Elizabeth MD Resident/Fellow/Other Turret Lathe Set Up Operator: Paola Sullivan MD Anesthesia: General ASA: II Anesthesia Staff: Anesthesiologist: Lencho Bahena MD C-AA: FRANSISCO Lee Staff: Centrifugal Screen Tender: Jaimee Bro RN Scrub Person: Shravan Marx RN Preoperative Diagnosis: Hoarseness 2. Vocal Cord Paresis/Paralysis- Left. Postoperative Diagnosis: Hoarseness Vocal Cord Paresis/ParalysisParesis Left. Procedure Performed: 1. Right thigh fat graft harvest, CPT 09276 2. Microdirect laryngoscopy with injection, CPT 27834- Left Indications: Porsha House is a 63 y.o. female who presents with hoarseness with Left vocal cord weakness with glottic insuffiency and desire for vocal rehabilitation. The risks, indications, and complications of surgery were discussed including, but not limited to bleeding and infection, damage to surrounding structures including the teeth, gums, lips tongue, surrounding muscles, nerves, blood vessels as well as scarring. We further discussed the possibility of change in voice with persistent or worsened hoarseness, swallowing difficulty, breathing difficulty, taste change that may be long lasting, medical complications and risks of anesthesia. Operative Findings: 1. Laryngoscopic view: normal. 2. Injection with : fat Operative Technique: The patient was brought back to the operating room and transferred to the operating room table. The patient was pre-oxygenated with 100% oxygen via facemask. Following time-out the patient received anesthesia and was intubated with 5-0 STACKER tube. The bed was turned 90 to the laryngology team. An initial diagnostic laryngoscopy with microscope was performed which revealed a normal vallecula, bilateral pyriforms, immediate subglottis and no gross lesions or masses. The right thigh was prepped and draped in sterile fashion and anesthetized with 1% lidocaine with epinephrine. A 15 blade was used to make a stab incision in the postero-lateral aspect of the thigh. A liposuction cannula on a 10 mL syringe was inserted through the stab incision and about 6 mLs of fat were obtained with one pass. This was placed on a telfa and selectively irrigated with sterile saline. Once dried on the telfa, it was passed back into a 10cc syringe and the bruenning syringe was primed with fat. The 19g needle then attached. The Dedo laryngoscope was advanced until the vocal cords were visualized and suspended. The microscope was moved in position, and utilized for remainder of the procedure. Appropriate eye and face protections was applied to the patient. Under microscopic guidance, the left vocal cord was injected lateral to the vocal ligament with fat using about 4 clicks to medialize, with 20% overcorrection bilaterally. Absorbable fast absorbing gut sutures were placed in the right thigh with a telfa island dressing. Pressure was held throughout the procedure to minimize hematoma formation and the patient was turned onto this side after extubation to maintain pressure on the site. The patient tolerated this well. The patient was then turned back to Anesthesia for extubation and returned to the recovery room in satisfactory condition. Sponge, needle, instrument counts were reported as correct. Estimated blood loss was minimal. Attending Attestation: I was present and scrubbed for the entire procedure. Estimated Blood Loss: None Complications: none Condition of the patient: Stable Disposition: PACU Hannah Elizabeth MD FACS CPM/PAT Evaluation Name: Porsha House (Porsha House) /Age: 604/06/1960/63 y.o. TELEMEDICINE ENCOUNTER Patient was contacted by telephone for preadmission testing perioperative risk assessment prior to surgery. CHIEF COMPLAINT Voice hoarseness HPI Porsha House is a 63-year-old female with voice hoarseness that began in April 2023. At ENT clinical examination she was diagnosed with a left vocal cord paresis. 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 She had a vocal cord injection in August 2023 with improvement to near baseline speaking voice. Over the past 2 to 3 weeks she has noticed a recurrence of voice hoarseness that worsens throughout the day. Coughing develops after long periods of phonation. She is interested in repeat vocal cord injection and is scheduled for a micro DL with fat injection to left vocal cord with right thigh fat graft harvest on 12/20/2023 at [facility]. ACTIVE PROBLEMS Patient Active Problem List Diagnosis Acute conjunctivitis of right eye S/P gastric surgery Status post gastric bypass for obesity Elevated alkaline phosphatase level Diarrhea Cervical radiculopathy Arthritis of wrist, right Osteoarthritis of knee Malabsorption Colon polyps GERD (gastroesophageal reflux disease) Spider veins Hypertension Mononeuritis multiplex Depression, major, single episode, severe (CMS/HCC) Hypokalemia Hypercholesterolemia Vitamin D deficiency Vitamin B12 deficiency Diabetes mellitus (CMS/HCC) B12 deficiency anemia Other fatigue Medicare annual wellness visit, subsequent ACP (advance care planning) Full code status Screening for multiple conditions Screening for alcohol problem Senile osteoporosis Samuel's syndrome Suspected sleep apnea Sleep apnea, unspecified Osteoarthritis of both hands S/P knee replacement Insomnia Wristdrop Absolute anemia Degeneration of lumbar intervertebral disc Flu vaccine need Other dysphagia 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 throat. The channeled endoscope was advanced. The topical lidocaine gargle was applied to the vocal cords. A 25 g needle was advanced via the thyrohyoid space and angled to the affected vocal fold. The injection was placed lateral to the vocal ligament and was completed with the following details: 0.8 ml to the left vocal cord. Patient tolerated the procedure well. Post procedure instructions were given for 24 hours of voice rest and avoidance of cough and clearing throat were discussed. Scribe Attestation By signing my name below, IXin , Scribe attest that this documentation has been prepared under the direction and in the presence of Hannah Elizabeth MD. 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 She tolerated an office based injection of 0.8 ml of Restylane. She will see Alesha Hernandez in 2 weeks to work on voice recovery. She will follow up with me in 2 months for repeat scope exam. Avoid cough, clear and voice usage for 48 hours. Then ok to use the voice as tolerated. The patient's questions were answered. documented in this encounter [facility] Work Phone: 09-06-2023 Instructions Hannah Elizabeth MD - 09/06/2023 11:00 AM EST Images from the original note were not included. You had a vocal cord injection. Please avoid using your voice for 48 hours. After that, it is ok to use your voice conservatively. This means no extended voice use, no shouting/yelling, and talking only if you can touch the person you are talking to. Avoid coughing and clearing. You will see Alesha Hernandez HOME OFFICE CLAIMS EXAMINER in 2 weeks, and me in 2 months. You may advance your diet as tolerated after one hour. For discomfort, please use over the counter Acetaminophen (Tylenol) or Ibuprofen (Advil. Motrin) for pain as directed by the packaging. Please call the office to talk with my nurse for any issues such as fever, chills, or questions at [phone], or my warehouse administrative assistant at [phone], press 2. If after hours or on the weekends, please call [phone], and ask for the ENT resident national sales, for assistance. documented in this encounter [facility] Work Phone: 08-31-2023 History of Present illness Narrative Reason For Consult Chief Complaint Patient presents with Hoarseness HISTORY OF PRESENT ILLNESS: This is a request for consultation from Dr. Mckeon for Porsha House, who is a 63 y.o. female presenting for an initial visit with for hoarseness. The patient reports voice changes started on 04/30/2023. No preceding event. This was a sudden in onset. She was treated x2 with antibiotics without improvement in her voice. She underwent a MBS and blood work to rule out vasculitis. Her brother from esophageal cancer and is worried about this. 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 Additionally, she has coughing fits that trigger emesis. She has cough with liquids > solids. Her cough is productive of thick mucus. No weight loss. She has modified her diet to include small sips and attention to swallow. Past Medical History GERD, HTN, HLD, DM, insomnia, Surgical History She has a past surgical history that includes Breast biopsy (02/20/2012); Other surgical history (02/20/2012); Dilation and curettage of uterus (02/20/2012); Cholecystectomy (02/20/2012); Other surgical history (02/22/2012); Gastric bypass (07/05/2012); Other surgical history (07/23/2017); Esophagogastroduodenoscopy (06/09/2022); Other surgical history (06/09/2022); Other surgical history (07/28/2017); Other surgical history (05/07/2017); Heel spur surgery (Bilateral); [place] tooth extraction; Tonsillectomy; Adenoidectomy; and Total knee arthroplasty (Right). Social History She reports that she has never smoked. She has been exposed to tobacco smoke. She has never used smokeless tobacco. She reports that she does not drink alcohol and does not use drugs. Allergies Ibuprofen, Naprelan, Azithromycin, Other, and Nsaids (non-steroidal anti-inflammatory drug) Review of Systems All 10 systems were reviewed and negative except for above. Physical Exam CONSTITUTIONAL: Well developed, well nourished. VOICE: Moderate breathy hoarseness RESPIRATION: Breathing comfortably, no stridor. NEURO: Alert and oriented x3, cranial nerves II-XII intact and symmetric bilaterally. EARS: Normal external ears, external auditory canals, normal hearing to conversational voice. NOSE: External nose midline, anterior rhinoscopy is normal with limited visualization to the anterior aspect of the interior turbinates. No lesions noted. ORAL CAVITY/OROPHARYNX/LIPS: Normal mucous membranes, normal floor of mouth/tongue/OP, no masses or lesions are noted. SKIN: Neck skin is with scar on the left from ACDF PSYCH: Alert and oriented with appropriate mood and affect. Procedure PROCEDURE NOTE: Recommended stroboscopy. Risks, benefits, and alternatives were explained. They wish to proceed and provide verbal consent. PROCEDURE: Flexible laryngoscopy with stroboscopy, CPT 90118 POSTPROCEDURE DIAGNOSIS: Chronic hoarseness INDICATIONS: Inability to tolerate mirror exam or abnormal findings on mirror, Flexible Laryngoscopy/Stroboscopy performed to assess one of the followin. Diagnosis of symptomatic disorder involving the voice, swallow, upper aerodigestive tract, including ELLEN disorders, or 2. Preoperative evaluation of vocal cord function for individuals undergoing surgery where the RLN or vagus nerves are at risk of injury, or 3. Further evaluation of abnormalities of the upper aerodigestive tract discovered by another modality, such as CT, MRI, bronchoscopy or EGD Description of Procedure: After adequate afrin and lidocaine spray, I advanced the endoscope. Visualization of the nasopharynx, vallecula, posterior pharyngeal san, pyriform, epiglottis and post cricoid areas was unremarkable. The following laryngeal findings were noted: vocal cord movement was asymmetric, left is sluggish L TVC is atrophic than right. closure was incomplete with a large mid glottic gap Mucosal wave increased bilaterally L TVC splinting in the midline Compression was reduced on the left FVC. AP > FVC the subglottis was widely patent Pooling of secretions. Pharyngeal wall squeeze was reduced on the left. Procedure well tolerated. Relevant Results MBS from 07/2023 showed one episode of deep penetration that cleared and retention of solids. 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 Secondary issues identified and managed on this patient visit include: family history of esophageal cancer with evidence on MBS of some stacking in esophagus on MBS. We will order a repeat EGD. Diagnoses are exacerbated by: s/p left ACDF, vasculitis and other nerve weakness. At this time, there is no clear etiology, but these issues could be contributing. We discussed the treatment options to include, medical and surgical options. We have decided to proceed as follows: We will order a CT scan with fine cuts through the larynx to evaluate the course of RLN to rule out masses/lesion focused on course of the left RLN. Possible vocal cord injection of the left vocal cord. The risks, indications, and complications were discussed with the patient. She elected to proceed and will be scheduled for this. She will work with speech therapy on safe swallow techniques and voice recovery. 4. EGD due to narrow esophageal column with retention of solid trials in the upper portion of the esophagus on MBS All her questions were answered. Scribe Attestation By signing my name below, I, Xin Beebe , Scribe attest that this documentation has been prepared under the direction and in the presence of Hannah Elizabeth MD. documented in this encounter [facility] Work Phone: 08-19-2023 Evaluation + Plan note Associated Problem(s): Hoarseness or changing voice Patient does have a change in her voice since this summer. I did ask her to get a sed rate and EDWARD which she unfortunately did not get but will get today. Just want to make sure that her vasculitis is not reactivated or somehow causing some nerve damage or something that may be triggering triggering her vocal cords. Suspicious for some sort of vocal cord paralysis and she does have an ENT appointment coming up in just over a week. Patient was encouraged to keep the ENT appointment Keep October appointment with me. [facility] Work Phone: 08-19-2023 Miscellaneous Notes Associated Problem(s): Hoarseness or changing voice Patient does have a change in her voice since this summer. I did ask her to get a sed rate and EDWARD which she unfortunately did not get but will get today. Just want to make sure that her vasculitis is not reactivated or somehow causing some nerve damage or something that may be triggering triggering her vocal cords. Suspicious for some sort of vocal cord paralysis and she does have an ENT appointment coming up in just over a week. Patient was encouraged to keep the ENT appointment Keep October appointment with me. documented in this encounter [facility] Work Phone: 08-19-2023 History of Present illness Narrative Subjective Patient ID: Porsha House is a 63 y.o. female who presents for general health management and B12 shot. BN Patient is here for follow-up for her voice issues. Unfortunately she has not had an appointment with an ENT yet because they started on a new computer system they have postponed her appointment. She does have an appointment on August 31 with the vocal cord specialist I encouraged her to keep. Review of Systems Constitutional: Negative for chills, fatigue and fever. HENT: Positive for voice change. Negative for sore throat. Eyes: Negative for visual disturbance. Respiratory: Negative for cough and shortness of breath. Cardiovascular: Negative for chest pain, palpitations and leg swelling. Gastrointestinal: Negative for constipation, diarrhea, nausea and vomiting. Genitourinary: Negative for difficulty urinating, dysuria, frequency, hematuria and urgency. Musculoskeletal: Negative for arthralgias and myalgias. Skin: Negative for rash. Neurological: Negative for dizziness, syncope, weakness, light-headedness and headaches. Objective Medication Documentation Review Audit Reviewed by Ericka Villela MD (Physician) on 08/19/23 at 1041 Medication Order Taking? Sig Documenting Provider Last Dose Status atorvastatin (Lipitor) 10 mg tablet [id number] TAKE 1 TABLET DAILY Ericka Villela MD Active calcium carbonate 600 mg calcium (1,500 mg) tablet [id number] Take by mouth. Historical ProviderMD Active celecoxib (CeleBREX) 200 mg capsule [id number] Take 1 capsule (200 mg) by mouth 1 (one) time each day. Historical ProviderMD Active cholecalciferol (Vitamin D3) 5,000 Units tablet [id number] Take 1 tablet (5,000 Units) by mouth 1 (one) time each day. Historical ProviderMD Active cyanocobalamin (Vitamin B-12) 1,000 mcg/mL injection [id number] Inject 1 mL (1,000 mcg) into the shoulder, thigh, or buttocks. Historical ProviderMD Active cycloSPORINE (Restasis) 0.05 % ophthalmic emulsion [id number] INSTILL 1 DROP IN BOTH EYES EVERY 12 HOURS Armen Foote MD Active denosumab (Prolia) 60 mg/mL syringe [id number] Inject 1 mL (60 mg) under the skin every 6 (six) months. To be administered in office Armen Foote MD Active lidocaine (Lidoderm) 5 % patch [id number] Place on the skin. Apply 1 patch to the affected area and leave in place for 12 hours, then remove and leave off for 12 hours Armen Foote MD Active lisinopril 10 mg tablet [id number] Take 1 tablet (10 mg) by mouth 1 (one) time each day. Use as directed Armen Foote MD Active nystatin (Mycostatin) 100,000 unit/gram powder [id number] Apply topically 2 times a day. Apply sparingly to affected area(s) Ericka Villela MD Active pantoprazole (ProtoNix) 40 mg EC tablet [id number] Take 1 tablet (40 mg) by mouth once daily in the morning. Take before meals. Helena Live DO Active potassium chloride CR 10 mEq ER tablet [id number] Take 1 tablet (10 mEq) by mouth 1 (one) time each day. Armen Foote MD Active pregabalin (Lyrica) 75 mg capsule [id number] Take 1 capsule (75 mg) by mouth 1 (one) time each day. Historical ProviderMD Active 28 mg iron- 800 mcg tablet [id number] TAKE 1 TABLET BY MOUTH ONCE DAILY Ericka Villela MD Active sertraline (Zoloft) 50 mg tablet [id number] Take 1 tablet (50 mg) by mouth 1 (one) time each day. Use as directed Historical ProviderMD Active Allergies Allergen Reactions Ibuprofen Swelling, Anaphylaxis, Rash and Shortness of breath Naprelan Hives and Angioedema Azithromycin Other Sloughing of oral mucosa Other Unknown Skin is thin, tape peels skin off Nsaids (Non-Steroidal Anti-Inflammatory Drug) Rash Physical Exam Constitutional: Appearance: Normal appearance. HENT: Head: Normocephalic and atraumatic. Nose: Nose normal. Eyes: Extraocular Movements: Extraocular movements intact. Pupils: Pupils are equal, round, and reactive to light. Cardiovascular: Rate and Rhythm: Normal rate and regular rhythm. Pulmonary: Breath sounds: Normal breath sounds. Abdominal: General: Abdomen is flat. Bowel sounds are normal. Palpations: Abdomen is soft. Musculoskeletal: Right lower leg: No edema. Left lower leg: No edema. Comments: Patient has muscle wasting from vasculitis in her upper extremities with flaccid wrists as well. This is chronic and unchanged for the patient Neurological: Mental Status: She is alert. BP 116/78 Pulse 77 Ht 1.537 m (5' 0.5) Comment: w/o shoes Wt 76.3 kg (168 lb 3.2 oz) SpO2 99% BMI 32.31 kg/m Assessment/Plan Problem List Items Addressed This Visit Vitamin B12 deficiency Relevant Medications cyanocobalamin (Vitamin B-12) injection 1,000 mcg (Completed) Laryngitis Hoarseness or changing voice - Primary Patient does have a change in her voice since this summer. I did ask her to get a sed rate and EDWARD which she unfortunately did not get but will get today. Just want to make sure that her vasculitis is not reactivated or somehow causing some nerve damage or something that may be triggering triggering her vocal cords. Suspicious for some sort of vocal cord paralysis and she does have an ENT appointment coming up in just over a week. Patient was encouraged to keep the ENT appointment Keep October appointment with me. It has been a pleasure seeing you. Ericka Villela MD documented in this encounter [facility] Work Phone: 08-19-2023 Instructions Ericka Villela MD - 08/19/2023 10:30 AM EDT Please get Sed rate and EDWARD today Keep appointment with ENT on 08/31/23 Keep Oct appointment with Dr Campoverde documented in this encounter [facility] Work Phone: 07-28-2023 History of Present illness Narrative Speech-Language Pathology HOME OFFICE CLAIMS EXAMINER Outpatient MBS Evaluation Patient Name: Porsha House Today's Date: 07/28/2023 Time Calculation Start Time: 1155 Stop Time: 1215 Time Calculation (min): 20 min Current Problem: Patient Active Problem List Diagnosis Acute conjunctivitis of right eye S/P gastric surgery Status post gastric bypass for obesity Elevated alkaline phosphatase level Diarrhea Osteoporosis Cervical radiculopathy Arthritis of wrist, right Osteoarthritis of knee Malabsorption Colon polyps GERD (gastroesophageal reflux disease) Spider veins Hypertension Mononeuritis multiplex Depression, major, single episode, severe ([facility]) Hypokalemia Hypercholesterolemia Vitamin D deficiency Vitamin B12 deficiency Diabetes mellitus ([facility]) B12 deficiency anemia Other fatigue Medicare annual wellness visit, subsequent ACP (advance care planning) Full code status Screening for multiple conditions Screening for alcohol problem Senile osteoporosis Samuel's syndrome Suspected sleep apnea Sleep apnea, unspecified Secondary non-renal hyperparathyroidism ([facility]) Osteoarthritis of both hands S/P knee replacement Insomnia Wristdrop Absolute anemia Subacute sinusitis Laryngitis Degeneration of lumbar intervertebral disc Flu vaccine need Cyanocobalamin deficiency Other dysphagia Hoarseness or changing voice General Visit Information: Patient Class: Outpatient Reason for Referral: Patient with coughing and difficulty swallowing for a few weeks. Reports that she coughed so hard taking her pills that they actually came out of her nose. Patient reports she feels like she has alot of muck in her throat. States she is taking Mucinex but is not sure it is really helping. Also reports that her coughing episodes during oral intake are intemittent. She states that she has had vocal changes since May 01, 2023. States that she woke up one morning, her voice was altered and it has not improved. Reports that it is exhausting to talk. Patient had ENT appointment but it was canceled d/t computer system issues. She has an appointment scheduled with Dr. Elizabeth in August. Assessment/Impression: Oral motor movements appear WFL at this time. Natural dentition present and in good condition. Vocal quality is hoarse/harsh but intelligible. Observations/assessment are as follows: ORAL PHASE: Prompt bolus transfer for all consistencies and timely mastication for harder solids. PHARYNGEAL PHASE: Minimal vallecular and pharyngeal residue noted post liquid trials. Greater pharyngeal residue was noted following pudding and harder solid trials, that patient did not appear sensate to. This residue did appear to be cleared with a dry swallow or liquid wash. Deep silent penetration x1 during the swallow of thin via straw sip. Cued throat clear did appear to clear this material from the laryngeal vestibule. No other evidence of laryngeal penetration or tracheal aspiration was observed during the study. ST observed patient to have a narrow esophageal column with retention of solid trials in the upper portion of the esophagus. Further dedicated imaging of the esophagus may be beneficial. Refer to any additional findings in radiologist's report. Recommendations/Treatment: 1. Recommend continuing regular solids/thin liquids. 2. Patient should remain upright for at least 20-30 minutes following meals to allow time for food/liquid to clear. 3. Continue to consume small bites/sips. 4. Would advise cup vs straw sip, due to x1 episode of deep silent penetration on straw sip of thin. 5. ENT/GI consults. Follow-up speech therapy recommended: Discuss ST intervention after ENT appointment. Education: Discussed initial impressions with patient, who verbalized understanding. documented in this encounter [facility] Work Phone: 07-22-2023 Evaluation + Plan note Associated Problem(s): Vitamin B12 deficiency B12 shot given 07/22/23 [facility] Work Phone: 07-22-2023 Miscellaneous Notes Associated Problem(s): Vitamin B12 deficiency B12 shot given 07/22/23 Associated Problem(s): Other dysphagia Urgent referral to ENT, for evaluation of vocal cords and possible scope. Get barium swallow study. Get labs drawn to eval for other atypical etiologies such as vasculitis. We will check an EDWARD and sed rate. documented in this encounter [facility] Work Phone: 07-22-2023 Evaluation + Plan note Associated Problem(s): Other dysphagia Urgent referral to ENT, for evaluation of vocal cords and possible scope. Get barium swallow study. Get labs drawn to eval for other atypical etiologies such as vasculitis. We will check an EDWARD and sed rate. [facility] Work Phone: 07-22-2023 History of Present illness Narrative Subjective Patient ID: Porsha House is a 63 y.o. female who presents for dysphagia and hoarse voice. HPI Pt having hoarse voice since May 01. Patient has now been having difficulty getting down medications, foods, and liquids. Pt now takes smaller bites and smaller sips. She states she's had an episode of coughing this past week while driving and had to machine puller over because she could not catch her breath. She states she has a bunch of phlegm build up, though her cough is nonproductive. Review of Systems Constitutional: Negative for fever and unexpected weight change. HENT: Positive for congestion, ear pain, trouble swallowing and voice change. Negative for hearing loss, nosebleeds, rhinorrhea, sinus pressure, sinus pain and sore throat. Mostly congestion in the throat, not nose. Right ear pain once in the last week. Trouble swallowing medications, foods, and drinks for the past 3-4 weeks. Recently has been drinking and eating smaller amounts. Pt states Lyrica capsule came out of her nose after she took them and started coughing. Hoarseness in voice since May 01 Eyes: Negative for itching and visual disturbance. Respiratory: Positive for cough. Occasional choking on the food. Cardiovascular: Negative for chest pain and palpitations. Gastrointestinal: Positive for diarrhea. Negative for abdominal pain, blood in stool, constipation and nausea. Started 1 week, anti-diarrheals are not working. Genitourinary: Negative for hematuria. Musculoskeletal: Negative for arthralgias. Neurological: Positive for light-headedness and numbness. Negative for headaches. Pt has been having sxs 1-2x a week for the past month. Sitting relieves this. 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 Patient's numbness in her extremities is chronic from the vasculitis Objective Medication Documentation Review Audit Reviewed by Ericka Villela MD (Physician) on 07/22/23 at 1651 Medication Order Taking? Sig Documenting Provider Last Dose Status atorvastatin (Lipitor) 10 mg tablet [id number] TAKE 1 TABLET DAILY Ericka Villela MD Active calcium carbonate 600 mg calcium (1,500 mg) tablet [id number] Take by mouth. Armen ProviderMD Active celecoxib (CeleBREX) 200 mg capsule [id number] Take 1 capsule (200 mg) by mouth 1 (one) time each day. Armen Foote MD Active cholecalciferol (Vitamin D3) 5,000 Units tablet [id number] Take 1 tablet (5,000 Units) by mouth 1 (one) time each day. Armen Foote MD Active Discontinued 07/22/23 165 cyanocobalamin (Vitamin B-12) 1,000 mcg/mL injection [id number] Inject 1 mL (1,000 mcg) into the shoulder, thigh, or buttocks. Armen Foote MD Active cycloSPORINE (Restasis) 0.05 % ophthalmic emulsion [id number] INSTILL 1 DROP IN BOTH EYES EVERY 12 HOURS Armen Foote MD Active denosumab (Prolia) 60 mg/mL syringe [id number] Inject 1 mL (60 mg) under the skin every 6 (six) months. To be administered in office Armen Foote MD Active lidocaine (Lidoderm) 5 % patch [id number] Place on the skin. Apply 1 patch to the affected area and leave in place for 12 hours, then remove and leave off for 12 hours Armen Foote MD Active lisinopril 10 mg tablet [id number] Take 1 tablet (10 mg) by mouth 1 (one) time each day. Use as directed Armen Foote MD Active nystatin (Mycostatin) 100,000 unit/gram powder [id number] Apply topically 2 times a day. Apply sparingly to affected area(s) Ericka Villela MD Active pantoprazole (ProtoNix) 40 mg EC tablet [id number] Take 1 tablet (40 mg) by mouth once daily in the morning. Take before meals. Ericka Villela MD Active potassium chloride CR 10 mEq ER tablet [id number] Take 1 tablet (10 mEq) by mouth 1 (one) time each day. Armen Foote MD Active pregabalin (Lyrica) 75 mg capsule [id number] Take 1 capsule (75 mg) by mouth 1 (one) time each day. Armen Foote MD Active 28 mg iron- 800 mcg tablet [id number] TAKE 1 TABLET BY MOUTH ONCE DAILY Ericka Villela MD Active Discontinued 10/05/23 1650 sertraline (Zoloft) 50 mg tablet [id number] Take 1 tablet (50 mg) by mouth 1 (one) time each day. Use as directed Historical Provider, Active Allergies Allergen Reactions Ibuprofen Swelling, Anaphylaxis, Rash and Shortness of breath Naprelan Hives and Angioedema Azithromycin Other Sloughing of oral mucosa Other Unknown Skin is thin, tape peels skin off Nsaids (Non-Steroidal Anti-Inflammatory Drug) Rash Physical Exam Vitals reviewed. Constitutional: Appearance: Normal appearance. HENT: Head: Normocephalic and atraumatic. Neck: Comments: Patient's voice does sound slightly weaker, raspy and almost in a whispering tone. Cardiovascular: Rate and Rhythm: Normal rate and regular rhythm. Pulses: Normal pulses. Heart sounds: Normal heart sounds. Pulmonary: Effort: Pulmonary effort is normal. Breath sounds: Normal breath sounds. Neurological: General: No focal deficit present. Mental Status: She is alert and oriented to person, place, and time. Psychiatric: Mood and Affect: Mood normal. Behavior: Behavior normal. There were no vitals taken for this visit. Assessment/Plan Problem List Items Addressed This Visit Osteoporosis Vitamin B12 deficiency B12 shot given 07/22/23 B12 deficiency anemia Laryngitis Flu vaccine need Other dysphagia - Primary Urgent referral to ENT, for evaluation of vocal cords and possible scope. Get barium swallow study. Get labs drawn to eval for other atypical etiologies such as vasculitis. We will check an EDWARD and sed rate. Relevant Orders FL modified barium swallow study Referral to ENT Sedimentation Rate EDWARD Hoarseness or changing voice Relevant Orders FL modified barium swallow study Referral to ENT Sedimentation Rate EDWARD Please follow up with ENT specialist, get barium swallow, and have labs drawn as soon as possible. It has been a pleasure seeing you. Ericka Villela MD This note or encounter for this patient visit included a student. I have independently interviewed the patient, performed a physical exam and performed my own assessment and plan and orders. documented in this encounter [facility] Work Phone: 07-22-2023 Sharon Justice - 07/22/2023 3:00 PM EDT Please see ENT FLORENCIA for vocal cord dysfunction. Set up swallow study FLORENCIA Follow up with Dr. Villela in 1 month for 30 min appt Get blood work today documented in this encounter [facility] Work Phone: 06-02-2023 Evaluation + Plan note Associated Problem(s): Subacute sinusitis Patient has a lot of postnasal drip and what appears to be a chronic or subacute sinusitis and laryngitis. She is already failed Cipro and amoxicillin and I suspect it would be better served if she had some atypical coverage. It is also possible that this is no longer bacterial it could be viral or something else. She is already had 2 negative COVID tests. At this time I am going to place her on doxycycline 100 mg twice daily for a week and if symptoms do not improve she is to call back and we will make an ENT referral for her laryngitis. [facility] Work Phone: 06-02-2023 Miscellaneous Notes Associated Problem(s): Subacute sinusitis Patient has a lot of postnasal drip and what appears to be a chronic or subacute sinusitis and laryngitis. She is already failed Cipro and amoxicillin and I suspect it would be better served if she had some atypical coverage. It is also possible that this is no longer bacterial it could be viral or something else. She is already had 2 negative COVID tests. At this time I am going to place her on doxycycline 100 mg twice daily for a week and if symptoms do not improve she is to call back and we will make an ENT referral for her laryngitis. documented in this encounter [facility] Work Phone: 06-02-2023 History of Present illness Narrative Subjective Patient ID: Porsha House is a 63 y.o. female who presents for laryngitis. BN Patient is here for work in for laryngitis. In mid April patient had what she thought was a sinus infection with pressure and facial pressure fevers chills congestion and drainage. She tested negative for COVID and went to a local urgent care nurse practitioner who gave her amoxicillin for 10 days but symptoms did not improve at all. During this time the patient also got laryngitis and lost her voice. She went back to the nurse practitioner a second time around May 11 and was given prednisone and Cipro. By this time her ears were also popping feeling full and had a lot of slimy postnasal drip and drainage. She completed the prednisone and Cipro but her laryngitis postnasal drip and symptoms still persisted. She admits the facial pressure is better and not bothering her in her upper teeth which initially hurt no longer hurt but she still has drainage and laryngitis. Review of Systems Constitutional: Positive for fatigue. Negative for chills and fever. HENT: Positive for congestion, ear pain, postnasal drip, rhinorrhea, sinus pressure and sinus pain. Negative for sore throat. Eyes: Negative for visual disturbance. Respiratory: Negative for cough and shortness of breath. Cardiovascular: Negative for chest pain, palpitations and leg swelling. Gastrointestinal: Negative for constipation, diarrhea, nausea and vomiting. Genitourinary: Negative for difficulty urinating, dysuria, frequency, hematuria and urgency. Musculoskeletal: Negative for arthralgias and myalgias. Skin: Negative for rash. Neurological: Negative for dizziness, syncope, weakness, light-headedness and headaches. Objective Medication Documentation Review Audit Reviewed by Ericka Villela MD (Physician) on 06/02/23 at 1027 Medication Order Taking? Sig Documenting Provider Last Dose Status atorvastatin (Lipitor) 10 mg tablet [id number] Take 1 tablet (10 mg) by mouth 1 (one) time each day. Historical ProviderMD Active calcium carbonate 600 mg calcium (1,500 mg) tablet [id number] Take by mouth. Historical ProviderMD Active celecoxib (CeleBREX) 200 mg capsule [id number] Take 1 capsule (200 mg) by mouth 1 (one) time each day. Historical ProviderMD Active cholecalciferol (Vitamin D3) 5,000 Units tablet [id number] Take 1 tablet (5,000 Units) by mouth 1 (one) time each day. Historical ProviderMD Active ciprofloxacin (Cipro) 500 mg tablet [id number] Take 1 tablet (500 mg) by mouth 2 times a day. Historical ProviderMD Active cyanocobalamin (Vitamin B-12) 1,000 mcg/mL injection [id number] Inject 1 mL (1,000 mcg) into the shoulder, thigh, or buttocks. Armen ProviderMD Active cycloSPORINE (Restasis) 0.05 % ophthalmic emulsion [id number] INSTILL 1 DROP IN BOTH EYES EVERY 12 HOURS Armen Foote MD Active denosumab (Prolia) 60 mg/mL syringe [id number] Inject 1 mL (60 mg) under the skin every 6 (six) months. To be administered in office Armen Foote MD Active lidocaine (Lidoderm) 5 % patch [id number] Place on the skin. Apply 1 patch to the affected area and leave in place for 12 hours, then remove and leave off for 12 hours Armen Foote MD Active lisinopril 10 mg tablet [id number] Take 1 tablet (10 mg) by mouth 1 (one) time each day. Use as directed Historical MD Dary Active nystatin (Mycostatin) 100,000 unit/gram powder [id number] Apply topically 2 times a day. Apply sparingly to affected area(s) Ericka Villela MD Active pantoprazole (ProtoNix) 40 mg EC tablet [id number] Take 1 tablet (40 mg) by mouth once daily in the morning. Take before meals. Ericka Villela MD Active potassium chloride CR 10 mEq ER tablet [id number] Take 1 tablet (10 mEq) by mouth 1 (one) time each day. Armen Foote MD Active predniSONE (Deltasone) 10 mg tablet [id number] Take 1 tablet (10 mg) by mouth once daily. Historical ProviderMD 05/28/23 9891 pregabalin (Lyrica) 75 mg capsule [id number] Take 1 capsule (75 mg) by mouth 1 (one) time each day. Armen ProviderMD Active vit,ybcx10-wxdi-eorfv (PNV 29-1) 29 mg iron- 1 mg tablet [id number] Take 1 tablet by mouth once daily. Ericka Villela MD Active sertraline (Zoloft) 50 mg tablet [id number] Take 1 tablet (50 mg) by mouth 1 (one) time each day. Use as directed Armen Foote MD Active Physical Exam Constitutional: Appearance: Normal appearance. HENT: Head: Normocephalic and atraumatic. Comments: Both tympanic membranes are bulging. The left base has a small amount of erythema around it as well. Left tympanic membrane is dull and there is a small amount of clear air-fluid level at the base as well but no erythema. Nose: Congestion and rhinorrhea present. Mouth/Throat: Pharynx: No oropharyngeal exudate or posterior oropharyngeal erythema. Eyes: Extraocular Movements: Extraocular movements intact. Pupils: Pupils are equal, round, and reactive to light. Cardiovascular: Rate and Rhythm: Normal rate and regular rhythm. Pulmonary: Breath sounds: Normal breath sounds. Abdominal: General: Abdomen is flat. Bowel sounds are normal. Palpations: Abdomen is soft. Musculoskeletal: Right lower leg: No edema. Left lower leg: No edema. Neurological: Mental Status: She is alert. BP 123/79 (BP Location: Left arm, Patient Position: Sitting) Pulse 88 Ht 1.575 m (5' 2) Wt 75 kg (165 lb 6.4 oz) SpO2 99% BMI 30.25 kg/m Assessment/Plan Problem List Items Addressed This Visit RESOLVED: Vasculitic neuropathy (CMS/HCC) Secondary non-renal hyperparathyroidism (CMS/HCC) Subacute sinusitis - Primary Patient has a lot of postnasal drip and what appears to be a chronic or subacute sinusitis and laryngitis. She is already failed Cipro and amoxicillin and I suspect it would be better served if she had some atypical coverage. It is also possible that this is no longer bacterial it could be viral or something else. She is already had 2 negative COVID tests. At this time I am going to place her on doxycycline 100 mg twice daily for a week and if symptoms do not improve she is to call back and we will make an ENT referral for her laryngitis. Relevant Medications doxycycline (Vibramycin) 100 mg capsule Laryngitis Relevant Medications doxycycline (Vibramycin) 100 mg capsule It has been a pleasure seeing you. documented in this encounter [facility] Work Phone: 02-24-2023 Evaluation + Plan note Associated Problem(s): Achilles tendinitis of right lower extremity I recommend patient continue using Biofreeze as needed on the right Achilles tendon and foot. I would recommend a walking boot for at least the next 6 weeks. If she has worsening symptoms she is to let me know and we will make a referral to [facility] sooner. X-ray was obtained and shows some arthritic changes but nothing else significant. If we do not see any improvement we will refer her to podiatry [facility] Work Phone: 02-24-2023 Miscellaneous Notes Associated Problem(s): Achilles tendinitis of right lower extremity I recommend patient continue using Biofreeze as needed on the right Achilles tendon and foot. I would recommend a walking boot for at least the next 6 weeks. If she has worsening symptoms she is to let me know and we will make a referral to [facility] sooner. X-ray was obtained and shows some arthritic changes but nothing else significant. If we do not see any improvement we will refer her to podiatry documented in this encounter [facility] Work Phone: 02-24-2023 History of Present illness Narrative Subjective Patient ID: Porsha House is a 62 y.o. female who presents for Urgent Care follow-up,rt ankle pain, and B12 vac. BN Patient is here for right foot and ankle pain. Initial incident occurred approximately 6 weeks ago when she was shopping wearing dress boots. She walked all day in the dress boots and in the evening that night when she took them off she had pain in her right heel on the medial side. Over the next few weeks she continue trying different types of shoes stretches but the pain has slowly worsened and increased. It really hurts when she tries to point her toe to put the shoe on in that same area. Walking is also very difficult. She noticed no bruises and there was no trauma to the area. Review of Systems Constitutional: Negative for chills, fatigue and fever. HENT: Negative for sore throat. Eyes: Negative for visual disturbance. Respiratory: Negative for cough and shortness of breath. Cardiovascular: Negative for chest pain, palpitations and leg swelling. Gastrointestinal: Negative for constipation, diarrhea, nausea and vomiting. Genitourinary: Negative for difficulty urinating, dysuria, frequency, hematuria and urgency. Musculoskeletal: Positive for back pain. Negative for arthralgias and myalgias. Patient complains of pain in the right ankle medial side and in the posterior area near the Achilles tendon. Skin: Negative for rash. Neurological: Positive for weakness. Negative for dizziness, syncope, light-headedness and headaches. Objective Medication Documentation Review Audit Reviewed by Rachel Raymond MA (Temperature Control Inspector) on 02/23/23 at 1913 Medication Order Taking? Sig Documenting Provider Last Dose Status atorvastatin (Lipitor) 10 mg tablet [id number] Take 1 tablet (10 mg) by mouth 1 (one) time each day. Armen Foote MD Active calcium carbonate 600 mg calcium (1,500 mg) tablet [id number] Take by mouth. Armen Foote MD Active celecoxib (CeleBREX) 200 mg capsule [id number] Take 1 capsule (200 mg) by mouth 1 (one) time each day. Armen Foote MD Active cholecalciferol (Vitamin D3) 5,000 Units tablet [id number] Take 1 tablet (5,000 Units) by mouth 1 (one) time each day. Armen Foote MD Active cyanocobalamin (Vitamin B-12) 1,000 mcg/mL injection [id number] Inject 1 mL (1,000 mcg) into the shoulder, thigh, or buttocks. Armen Foote MD Active denosumab (Prolia) 60 mg/mL syringe [id number] Inject 1 mL (60 mg) under the skin every 6 (six) months. To be administered in office Armen Foote MD Active lidocaine (Lidoderm) 5 % patch [id number] Place on the skin. Apply 1 patch to the affected area and leave in place for 12 hours, then remove and leave off for 12 hours Armen Foote MD Active lisinopril 10 mg tablet [id number] Take 1 tablet (10 mg) by mouth 1 (one) time each day. Use as directed Armen Foote MD Active nystatin (Mycostatin) 100,000 unit/gram powder [id number] Apply topically 2 times a day. Apply sparingly to affected area(s) Ericka Villela MD Active pantoprazole (ProtoNix) 40 mg EC tablet [id number] Take 1 tablet (40 mg) by mouth once daily in the morning. Take before meals. Ericka Villela MD Active PNV no.95/ferrous fum/folic ac ( ORAL) [id number] Take 1 tablet by mouth 1 (one) time each day. Historical ProviderMD Active potassium chloride CR 10 mEq ER tablet [id number] Take 1 tablet (10 mEq) by mouth 1 (one) time each day. Historical Provider, Active pregabalin (Lyrica) 75 mg capsule [id number] Take 1 capsule (75 mg) by mouth 1 (one) time each day. Historical Provider, Active vit,aonl10-ulfn-mauiv (PNV 29-1) 29 mg iron- 1 mg tablet [id number] Take 1 tablet by mouth 1 (one) time each day. Historical Provider, Active sertraline (Zoloft) 50 mg tablet [id number] Take 1 tablet (50 mg) by mouth 1 (one) time each day. Use as directed Historical Provider, Active Physical Exam Musculoskeletal: General: Tenderness present. Comments: Patient is tender over the Achilles tendon radiating to the medial side of the inner heel and foot. All of this is consistent with a mild Achilles tendinitis. BP 124/78 (BP Location: Left arm, Patient Position: Sitting) Pulse 63 Ht 1.575 m (5' 2) Wt 76.7 kg (169 lb) SpO2 98% BMI 30.91 kg/m Assessment/Plan Problem List Items Addressed This Visit None It has been a pleasure seeing you. documented in this encounter [facility] Work Phone: 02-24-2023 Instructions Ericka Villela MD - 02/24/2023 11:45 AM EDT pLEASE WEAR BOOT FOR NEXT 6 WEEKS documented in this encounter [facility] Work Phone: 12-24-2022 Evaluation + Plan note Associated Problem(s): Depression, major, single episode, severe (CMS/HCC) Pression is stable. [facility] Work Phone: 12-24-2022 Miscellaneous Notes Associated Problem(s): Depression, major, single episode, severe (CMS/HCC) Pression is stable. Associated Problem(s): Diabetes mellitus (CMS/HCC) Patient's A1c has remained stable since her gastric bypass surgery and is currently 5.2%. Associated Problem(s): Vitamin B12 deficiency 12-lead level was obtained at the beginning of this month and is mildly elevated so overall she is doing well. 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 CBC is checked annually as well as B12 to make sure this remains stable. Annual labs will be checked at this time. Associated Problem(s): Vitamin D deficiency Patient remains on vitamin D supplementation and will need to do so due to her chronic obesity and gastric bypass surgery. Associated Problem(s): Osteoporosis Osteoporosis is stable and she is due for bone density this April Associated Problem(s): GERD (gastroesophageal reflux disease) Gastroesophageal reflux disease is stable with no recent heartburn or breakthrough symptoms. Associated Problem(s): Hypertension Hypertension is stable. Associated Problem(s): Other fatigue She has excessive fatigue which cannot be accounted for. CBC was normal and thyroid test was normal so I suggested sleep study to see if she had sleep apnea. Patient agrees she has restless sleep and will agree to a sleep evaluation. Referral was made. Associated Problem(s): Medicare annual wellness visit, subsequent Annual wellness visit completed today. Associated Problem(s): Poor sleep Patient is constantly tired however her CBC and thyroid test are all normal and I suggested perhaps she had sleep apnea and recommended sleep study. Patient is in agreement and will go to see a sleep specialist. 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 Associated Problem(s): Cervical radiculopathy Neck pain is stable at this time and has caused limited range of motion of her upper extremities but she is at her baseline. documented in this encounter [facility] Work Phone: 12-24-2022 Evaluation + Plan note Associated Problem(s): Diabetes mellitus (CMS/HCC) Patient's A1c has remained stable since her gastric bypass surgery and is currently 5.2%. [facility] Work Phone: 12-24-2022 Evaluation + Plan note Associated Problem(s): Vitamin B12 deficiency 12-lead level was obtained at the beginning of this month and is mildly elevated so overall she is doing well. 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 CBC is checked annually as well as B12 to make sure this remains stable. Annual labs will be checked at this time. [facility] Work Phone: 12-24-2022 Evaluation + Plan note Associated Problem(s): Vitamin D deficiency Patient remains on vitamin D supplementation and will need to do so due to her chronic obesity and gastric bypass surgery. [facility] Work Phone: 12-24-2022 Evaluation + Plan note Associated Problem(s): Osteoporosis Osteoporosis is stable and she is due for bone density this April [facility] Work Phone: 12-24-2022 Evaluation + Plan note Associated Problem(s): GERD (gastroesophageal reflux disease) Gastroesophageal reflux disease is stable with no recent heartburn or breakthrough symptoms. [facility] Work Phone: 12-24-2022 Evaluation + Plan note Associated Problem(s): Hypertension Hypertension is stable. [facility] Work Phone: 12-24-2022 Evaluation + Plan note Associated Problem(s): Other fatigue She has excessive fatigue which cannot be accounted for. CBC was normal and thyroid test was normal so I suggested sleep study to see if she had sleep apnea. Patient agrees she has restless sleep and will agree to a sleep evaluation. Referral was made. [facility] Work Phone: 12-24-2022 Evaluation + Plan note Associated Problem(s): Medicare annual wellness visit, subsequent Annual wellness visit completed today. [facility] Work Phone: 12-24-2022 Evaluation + Plan note Associated Problem(s): Poor sleep Patient is constantly tired however her CBC and thyroid test are all normal and I suggested perhaps she had sleep apnea and recommended sleep study. Patient is in agreement and will go to see a sleep specialist. 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 [facility] Work Phone: 12-24-2022 Evaluation + Plan note Associated Problem(s): Cervical radiculopathy Neck pain is stable at this time and has caused limited range of motion of her upper extremities but she is at her baseline. [facility] Work Phone: 12-24-2022 History of Present illness Narrative Subjective Reason for Visit: Porsha House is an 62 y.o. female here for a Medicare Wellness visit. Reviewed all medications by prescribing practitioner or clinical pharmacist (such as prescriptions, OTCs, herbal therapies and supplements) and documented in the medical record. Patient is here for an annual wellness visit as well as management of her medical problems including cholesterol, osteoporosis, depression, vasculitis causing cervical radiculitis, arthritis and medication management. Patient was unable to get her Prolia injection today as we did not have it available or cleared through her insurance. She did have blood work done earlier this month which would qualify her so we will bring her back for nurse visit to get the injection. Patient Care Team: Ericka Villela MD as PCP - General Ericka Villela MD as PCP - [employer] PCP Review of Systems Constitutional: Negative for chills, fatigue and fever. HENT: Negative for sore throat. Eyes: Negative for visual disturbance. Respiratory: Negative for cough and shortness of breath. Cardiovascular: Negative for chest pain, palpitations and leg swelling. Gastrointestinal: Negative for constipation, diarrhea, nausea and vomiting. Genitourinary: Negative for difficulty urinating, dysuria, frequency, hematuria and urgency. Musculoskeletal: Negative for arthralgias and myalgias. Patient has severe muscle atrophy in her upper extremities from the previous vasculitis. She has limited range of motion of her hands arms and shoulders. Skin: Negative for rash. Neurological: Negative for dizziness, syncope, weakness, light-headedness and headaches. Objective Vitals: BP 124/72 Pulse 84 Ht 1.575 m (5' 2) Wt 78 kg (171 lb 14.4 oz) SpO2 99% BMI 31.44 kg/m Physical Exam Constitutional: Appearance: Normal appearance. HENT: Head: Normocephalic and atraumatic. Nose: Nose normal. Eyes: Extraocular Movements: Extraocular movements intact. Pupils: Pupils are equal, round, and reactive to light. Cardiovascular: Rate and Rhythm: Normal rate and regular rhythm. Pulmonary: Breath sounds: Normal breath sounds. Abdominal: General: Abdomen is flat. Bowel sounds are normal. Palpations: Abdomen is soft. Musculoskeletal: Right lower leg: No edema. Left lower leg: No edema. Comments: Patient has significant atrophy of the muscles of the hands forearms and upper arms from the vasculitis. She has limited range of motion of her hands and grasp capacity. She is able to walk without assistive devices. Neurological: Mental Status: She is alert. Assessment/Plan Problem List Items Addressed This Visit Nervous Cervical radiculopathy Current Assessment & Plan Neck pain is stable at this time and has caused limited range of motion of her upper extremities but she is at her baseline. Poor sleep - Primary Current Assessment & Plan Patient is constantly tired however her CBC and thyroid test are all normal and I suggested perhaps she had sleep apnea and recommended sleep study. Patient is in agreement and will go to see a sleep specialist. Circulatory Hypertension Current Assessment & Plan Hypertension is stable. Digestive GERD (gastroesophageal reflux disease) Current Assessment & Plan Gastroesophageal reflux disease is stable with no recent heartburn or breakthrough symptoms. Musculoskeletal Osteoporosis Current Assessment & Plan Osteoporosis is stable and she is due for bone density this April Relevant Orders XR DEXA bone density Endocrine/Metabolic Vitamin D deficiency Current Assessment & Plan Patient remains on vitamin D supplementation and will need to do so due to her chronic obesity and gastric bypass surgery. Vitamin B12 deficiency Current Assessment & Plan 12-lead level was obtained at the beginning of this month and is mildly elevated so overall she is doing well. Diabetes mellitus (CMS/HCC) Current Assessment & Plan Patient's A1c has remained stable since her gastric bypass surgery and is currently 5.2%. Other Depression, major, single episode, severe (CMS/HCC) Current Assessment & Plan Pression is stable. Other fatigue Current Assessment & Plan She has excessive fatigue which cannot be accounted for. CBC was normal and thyroid test was normal so I suggested sleep study to see if she had sleep apnea. Patient agrees she has restless sleep and will agree to a sleep evaluation. Referral was made. Relevant Orders Referral to Adult Sleep Medicine Medicare annual wellness visit, subsequent Current Assessment & Plan Annual wellness visit completed today. ACP (advance care planning) Overview Living will power of die operator and CODE STATUS were all discussed with the patient today. She does have a living will and DURABLE POWER OF PADDED BOX SEWER and needs to bring us an updated version since we do not have one on record. CODE STATUS was also discussed with the patient and she would like to be a full code. Full code status Overview Patient would like to be a full code and understands that this can be altered in the future. She is aware that this will include CPR, cardioversion intubation and ventilation if necessary. Screening for multiple conditions Screening for alcohol problem Overview Alcohol screen was negative. documented in this encounter [facility] Work Phone: 12-24-2022 Instructions Ericka Villela MD - 12/24/2022 10:15 AM EST Advanced directives were discussed at your appointment today. It is recommended that you obtain and complete a living will and D POA (DURABLE POWER OF PADDED BOX SEWER for healthcare). You can complete these documents with an die operator if you have 1 or go to the website: [email or web address]. Please search the word living well and will take you directly to the form. Once you have completed these documents you can bring a copy to our office so we can add it to your medical record. Set up sleep referral for possible sleep apnea Follow up Dr Campoverde in 6 months documented in this encounter [facility] Work Phone: 10-19-2022 History of Present illness Narrative 62-year-old female here for rib pain. Patient states 2 days ago she was taking down [place] [place] when she tripped and fell into a flower bed. She states she landed on her left side. She denies any head injury, neck pain, loss of consciousness or other complaints. Complains of left-sided rib pain ever since. She states it hurts to move certain ways and take a deep breath. She denies however any shortness of breath, hemoptysis or other systemic complaints. Has been taking Tylenol. All other review of systems is negative for the chief complaint. [facility] 03-10-[facility]22 History of Present illness Narrative Patient is here for diarrhea.This past fall she had unexplainable diarrhea which ended up being Campylobacter. She was fine until 2 weeks ago when she started having diarrhea again. She has explosive watery diarrhea in the morning and then about 3 times in the morning. Once it settles down she feels better but throughout the day she continues to have intermittent diarrhea. As the day goes on it becomes somewhat firmer like pudding but never a formed stool. Yesterday she had 6 bowel movements. Color is brown.She denies abdominal pain or cramping.She denies blood in the stool or melena.She has no ovary fevers chills or other symptoms.She denies nausea.She has no other family members with the symptoms. -Internal Medicine [facility] Work Phone: 12-16-2021 History of Present illness Narrative Patient is here today for 4-month follow-up for medical problems such as high cholesterol, hypertension, and recent rectal bleeding.She has followed up with GI, Dr. White and has a colonoscopy and EGD scheduled for 's last A1c was 5.7% in December but she is overdue for repeat potassium level. [facility] Work Phone: 07-24-2021 Hospital Discharge instructions Rivera Tan MD - 07/24/2021 use peptobismol and bananas for diarrheal illness. The following attachments cannot be sent through Care Everywhere.Diarrhea (Honduran)documented in this encounter [facility] Work Phone: 07-15-2021 History of Present illness Narrative Ms. Porsha House is a 61 year-old woman whom was seen today as a scheduled Virtual follow up appointment with Audio + Video regarding a history of vasculitic neuropathy. I last saw her 07/15/2021.Since her previous appointment, she continues to have significant weakness of her right hand along with the right wrist drop. She feels that her left hand has not felt as numb and continues to use both hands for her daily activities. She uses a splint at the right wrist. She has not returned after she was evaluated by Dr. Gomez. Her surgery planned, arthrodesis of the right wrist is still on hold.Her numbness in the sole of the left big and second toes have not returned. She does not report any new weakness or falls at this time. She continues to take Lyrica 75 mg daily for hand pain. She was vaccinated with all 3 COVID vaccines, including the 3rd booster.Otherwise, the past medical history, social history, and review of systems were reviewed. There are no significant changes. [facility] Work Phone: 07-15-2021 History of Present illness Narrative Ms. 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 I last saw her 07/15/2021.Since her previous appointment, she continues to have significant weakness of her right hand along with the right wrist drop. She feels that her left hand has not felt as numb and continues to use both hands for her daily activities. She uses a splint at the right wrist. She has not returned after she was evaluated by Dr. Gomez. Her surgery planned, arthrodesis of the right wrist is still on hold.Her numbness in the sole of the left big and second toes have not returned. She does not report any new weakness or falls at this time. She continues to take Lyrica 75 mg daily for hand pain.Otherwise, the past medical history, social history, and review of systems were reviewed. There are no significant changes. [facility] Work Phone: 04-23-2021 History of Present illness Narrative Patient has been having left-sided pain radiating into the left groin since she was on vacation last week.She did a lot of walking 1 day and felt fine other than left knee pain but the next day woke up with pain in the left lateral posterior side of the buttocks radiating into the left groin.She denies any pain radiating down the leg and no posterior leg pain.Although she is taken Celebrex in the past she does not take NSAIDs as she had gastric bypass surgery. [facility] Work Phone: 02-05-2020 History of Present illness Narrative Ms. Porsha House is a 61 year-old woman whom was seen today as a scheduled Virtual follow up appointment with Audio + Video regarding a history of vasculitic neuropathy, the planned surgery to fuse her right wrist and previous onset of left foot numbness. I last saw her 02/05/2020.Since her previous appointment, she continues to have significant weakness of her right hand along with the right wrist drop. She feels that her left hand has not felt as numb and continues to use both hands for her daily activities. She uses a splint at the right wrist. She has not returned after she was evaluated by Dr. Gomez. Her surgery planned, arthrodesis of the right wrist is still on hold.Her numbness in the sole of the left big and second toes have not returned. She does not report any new weakness or falls at this time. She continues to take Lyrica 75 mg daily. She was vaccinated with all 3 COVID vaccines, including the booster.Otherwise, the past medical history, social history, and review of systems were reviewed. There are no significant changes. [facility] Work Phone: 02-05-2020 History of Present illness Narrative Ms. Porsha House is a 61 year-old woman whom was seen today as a scheduled Virtual follow up appointment with Audio + Video regarding a history of vasculitic neuropathy. I last saw her 02/05/2020.Since her previous appointment, she continues to have significant weakness of her right hand along with the right wrist drop. She feels that her left hand has not felt as numb and continues to use both hands for her daily activities. She uses a splint at the right wrist. She has not returned after she was evaluated by Dr. Gomez. Her surgery planned, arthrodesis of the right wrist is still on hold.Her numbness in the sole of the left big and second toes have not returned. She does not report any new weakness or falls at this time. She continues to take Lyrica 75 mg daily for hand pain. She was vaccinated with all 3 COVID vaccines, including the 3rd booster.Otherwise, the past medical history, social history, and review of systems were reviewed. There are no significant changes. [facility] Work Phone: 02-05-2020 History of Present illness Narrative Ms. Porsha House is a 61 year-old woman whom was seen today as a scheduled Virtual follow up appointment with Audio + Video regarding a history of vasculitic neuropathy. I last saw her 02/05/2020.Since her previous appointment, she continues to have significant weakness of her right hand along with the right wrist drop. She feels that her left hand has not felt as numb and continues to use both hands for her daily activities. She uses a splint at the right wrist. She has not returned after she was evaluated by Dr. Gomez. Her surgery planned, arthrodesis of the right wrist is still on hold.Her numbness in the sole of the left big and second toes have not returned. She does not report any new weakness or falls at this time. She continues to take Lyrica 75 mg daily for hand pain. She was vaccinated with all 3 COVID vaccines, including the 3rd booster.Otherwise, the past medical history, social history, and review of systems were reviewed. There are no significant changes. [facility] Work Phone: 02-05-2020 History of Present illness Narrative Ms. Porsha House is a 61 year-old woman whom was seen today as a scheduled Virtual follow up appointment with Audio + Video regarding a history of vasculitic neuropathy. I last saw her 02/05/2020.Since her previous appointment, she continues to have significant weakness of her right hand along with the right wrist drop. She feels that her left hand has not felt as numb and continues to use both hands for her daily activities. She uses a splint at the right wrist. She has not returned after she was evaluated by Dr. Gomez. Her surgery planned, arthrodesis of the right wrist is still on hold.Her numbness in the sole of the left big and second toes have not returned. She does not report any new weakness or falls at this time. She continues to take Lyrica 75 mg daily for hand pain. She was vaccinated with all 3 COVID vaccines, including the 3rd booster.Otherwise, the past medical history, social history, and review of systems were reviewed. There are no significant changes. [facility] Work Phone: Chief complaint Narrative - Reported new patient office visit for evaluation for sleep apnea. [id number] Work Phone: Evaluation note Diagnosis Nausea, vomiting and diarrhea- Primary Nausea with vomiting Dehydration documented in this encounter [facility] Work Phone: Evaluation note* Diagnosis Achilles tendinitis of right lower extremity- Primary Vitamin B12 deficiency Other B-complex deficiencies documented in this encounter [facility] Work Phone: Evaluation note* Diagnosis Subacute sinusitis, unspecified location- Primary Vasculitic neuropathy (CMS/HCC) Unspecified arteritis Secondary non-renal hyperparathyroidism (CMS/HCC) Laryngitis Acute laryngitis, without mention of obstruction documented in this encounter [facility] Work Phone: [phone] note* Diagnosis Other dysphagia- Primary Hoarseness or changing voice Other voice and resonance disorders Vitamin B12 deficiency Other B-complex deficiencies Laryngitis Acute laryngitis, without mention of obstruction Other vitamin B12 deficiency anemia Flu vaccine need Age-related osteoporosis without current pathological fracture documented in this encounter [facility] Work Phone: Evaluation note* Diagnosis Hoarseness or changing voice- Primary Other voice and resonance disorders Vitamin B12 deficiency Other B-complex deficiencies Laryngitis Acute laryngitis, without mention of obstruction documented in this encounter [facility] Work Phone: Evaluation note* Diagnosis Hoarseness or changing voice- Primary Other voice and resonance disorders Glottic insufficiency Other diseases of vocal cords Paresis of left vocal fold Pharyngoesophageal dysphagia Dysphagia, pharyngoesophageal phase documented in this encounter [facility] Work Phone: Evaluation note* Diagnosis Other dysphagia Hoarseness or changing voice Other voice and resonance disorders documented in this encounter [facility] Work Phone: [phone] note* Diagnosis Hoarseness of voice- Primary Dysphonia Hoarseness or changing voice Other voice and resonance disorders Paresis of left vocal fold documented in this encounter [facility] Work Phone: Evaluation note* Diagnosis Pharyngoesophageal dysphagia Dysphagia, pharyngoesophageal phase documented in this encounter [facility] Work Phone: [phone] note* Diagnosis Age-related osteoporosis without current pathological fracture- Primary Gastroesophageal reflux disease without esophagitis Esophageal reflux Primary hypertension Unspecified essential hypertension Vitamin D deficiency Vitamin B12 deficiency Other B-complex deficiencies Type 2 diabetes mellitus without complication, without long-term current use of insulin (CMS/HCC) Other vitamin B12 deficiency anemia Hypercholesterolemia Pure hypercholesterolemia Depression, major, single episode, severe ([facility]/HCC) Cyanocobalamin deficiency Other B-complex deficiencies documented in this encounter [facility] Work Phone: [phone] note* Diagnosis Hoarseness of voice- Primary Dysphonia Surgery, elective Unspecified elective surgery for purposes other than remedying health states Primary hypertension Unspecified essential hypertension Hoarseness of voice Dysphonia documented in this encounter [facility] Work Phone: [phone] note* Diagnosis Routine general medical examination at health care facility- Primary Routine general medical examination at a health care facility Other specified postprocedural states Tinea corporis Dermatophytosis of the body Screening mammogram for breast cancer Asymptomatic menopausal state B12 deficiency ACP (advance care planning) Other specified counseling Full code status Hypercholesterolemia Pure hypercholesterolemia Primary hypertension Unspecified essential hypertension Type 2 diabetes mellitus without complication, without long-term current use of insulin (CMS/HCC) Senile osteoporosis Vitamin B12 deficiency Other B-complex deficiencies Gastroesophageal reflux disease without esophagitis Esophageal reflux Screening for multiple conditions Multiphasic screening Medicare annual wellness visit, subsequent Depression, major, single episode, severe ([facility]/HCC) Screening for alcohol problem Screening for alcoholism documented in this encounter [facility] Work Phone: [phone] note* Diagnosis Screening mammogram for breast cancer documented in this encounter [facility] Work Phone: [phone] note* Diagnosis Asymptomatic menopausal state documented in this encounter [facility] Work Phone: [phone] note* Diagnosis Asymptomatic menopausal state documented in this encounter [facility] Work Phone: [phone] note* Diagnosis 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 Other diseases of vocal cords Hoarseness of voice Dysphonia documented in this encounter [facility] Work Phone: Evaluation note* Diagnosis Primary osteoarthritis of both knees- Primary Primary localized osteoarthrosis, lower leg Chondromalacia of right patella Chondromalacia of patella [facility] Left [facility] pain, unspecified chronicity [facility] Poor sleep- Primary Other fatigue Cervical radiculopathy Brachial neuritis or radiculitis nos Primary hypertension Unspecified essential hypertension Medicare annual wellness visit, subsequent ACP (advance care planning) Other specified counseling Full code status Screening for multiple conditions Multiphasic screening Screening for alcohol problem Screening for alcoholism Gastroesophageal reflux disease without esophagitis Esophageal reflux Age-related osteoporosis without current pathological fracture Vitamin D deficiency Vitamin B12 deficiency Other B-complex deficiencies Type 2 diabetes mellitus without complication, without long-term current use of insulin (Multi) Depression, major, single episode, severe (Multi) Achilles tendinitis of right lower extremity- Primary Vitamin B12 deficiency Other B-complex deficiencies Other vitamin B12 deficiency anemia Primary hypertension- Primary Unspecified essential hypertension Laryngitis Acute laryngitis, without mention of obstruction Subacute sinusitis, unspecified location Flu vaccine need Cyanocobalamin deficiency Other B-complex deficiencies B12 deficiency Type 2 diabetes mellitus without complication, without long-term current use of insulin (Multi) Vitamin B12 deficiency Other B-complex deficiencies S/P gastric surgery Other secondary osteoarthritis of both hands Other dysphagia- Primary Hoarseness or changing voice Other voice and resonance disorders Vitamin B12 deficiency Other B-complex deficiencies Laryngitis Acute laryngitis, without mention of obstruction Other vitamin B12 deficiency anemia Flu vaccine need Age-related osteoporosis without current pathological fracture Osteoporosis, unspecified osteoporosis type, unspecified pathological fracture presence Hoarseness or changing voice- Primary Other voice and resonance disorders Vitamin B12 deficiency Other B-complex deficiencies Laryngitis Acute laryngitis, without mention of obstruction Age-related osteoporosis without current pathological fracture- Primary Gastroesophageal reflux disease without esophagitis Esophageal reflux Primary hypertension Unspecified essential hypertension Vitamin D deficiency Vitamin B12 deficiency Other B-complex deficiencies Type 2 diabetes mellitus without complication, without long-term current use of insulin (Multi) Other vitamin B12 deficiency anemia Hypercholesterolemia Pure hypercholesterolemia Depression, major, single episode, severe (Multi) Cyanocobalamin deficiency Other B-complex deficiencies Routine general medical examination at health care facility- Primary Routine general medical examination at a health care facility Other specified postprocedural states Tinea corporis Dermatophytosis of the body Screening mammogram for breast cancer Asymptomatic menopausal state B12 deficiency ACP (advance care planning) Other specified counseling Full code status Hypercholesterolemia Pure hypercholesterolemia Primary hypertension Unspecified essential hypertension Type 2 diabetes mellitus without complication, without long-term current use of insulin (Multi) Senile osteoporosis Vitamin B12 deficiency Other B-complex deficiencies Gastroesophageal reflux disease without esophagitis Esophageal reflux Screening for multiple conditions Multiphasic screening Medicare annual wellness visit, subsequent Depression, major, single episode, severe (Multi) Screening for alcohol problem Screening for alcoholism Type 2 diabetes mellitus without complication, without long-term current use of insulin (Multi)- Primary Cardiac risk counseling Primary hypertension Unspecified essential hypertension Hypercholesterolemia Pure hypercholesterolemia B12 deficiency Senile osteoporosis Vitamin B12 deficiency Other B-complex deficiencies Gastroesophageal reflux disease without esophagitis Esophageal reflux Mononeuritis multiplex Hoarseness of voice- Primary Dysphonia Unilateral vocal cord paralysis Unspecified paralysis of vocal cords or larynx documented in this encounter [facility] Work Phone: Evaluation note* Diagnosis Poor sleep- Primary Other fatigue Cervical radiculopathy Brachial neuritis or radiculitis nos Primary hypertension Unspecified essential hypertension Medicare annual wellness visit, subsequent ACP (advance care planning) Other specified counseling Full code status Screening for multiple conditions Multiphasic screening Screening for alcohol problem Screening for alcoholism Gastroesophageal reflux disease without esophagitis Esophageal reflux Age-related osteoporosis without current pathological fracture Vitamin D deficiency Vitamin B12 deficiency Other B-complex deficiencies Type 2 diabetes mellitus without complication, without long-term current use of insulin (Multi) Depression, major, single episode, severe (Multi) Achilles tendinitis of right lower extremity- Primary Vitamin B12 deficiency Other B-complex deficiencies Other vitamin B12 deficiency anemia Primary hypertension- Primary Unspecified essential hypertension Laryngitis Acute laryngitis, without mention of obstruction Subacute sinusitis, unspecified location Flu vaccine need Cyanocobalamin deficiency Other B-complex deficiencies B12 deficiency Type 2 diabetes mellitus without complication, without long-term current use of insulin (Multi) Vitamin B12 deficiency Other B-complex deficiencies S/P gastric surgery Other secondary osteoarthritis of both hands Other dysphagia- Primary Hoarseness or changing voice Other voice and resonance disorders Vitamin B12 deficiency Other B-complex deficiencies Laryngitis Acute laryngitis, without mention of obstruction Other vitamin B12 deficiency anemia Flu vaccine need Age-related osteoporosis without current pathological fracture Osteoporosis, unspecified osteoporosis type, unspecified pathological fracture presence Hoarseness or changing voice- Primary Other voice and resonance disorders Vitamin B12 deficiency Other B-complex deficiencies Laryngitis Acute laryngitis, without mention of obstruction Age-related osteoporosis without current pathological fracture- Primary Gastroesophageal reflux disease without esophagitis Esophageal reflux Primary hypertension Unspecified essential hypertension Vitamin D deficiency Vitamin B12 deficiency Other B-complex deficiencies Type 2 diabetes mellitus without complication, without long-term current use of insulin (Multi) Other vitamin B12 deficiency anemia Hypercholesterolemia Pure hypercholesterolemia Depression, major, single episode, severe (Multi) Cyanocobalamin deficiency Other B-complex deficiencies Routine general medical examination at health care facility- Primary Routine general medical examination at a health care facility Other specified postprocedural states Tinea corporis Dermatophytosis of the body Screening mammogram for breast cancer Asymptomatic menopausal state B12 deficiency ACP (advance care planning) Other specified counseling Full code status Hypercholesterolemia Pure hypercholesterolemia Primary hypertension Unspecified essential hypertension Type 2 diabetes mellitus without complication, without long-term current use of insulin (Multi) Senile osteoporosis Vitamin B12 deficiency Other B-complex deficiencies Gastroesophageal reflux disease without esophagitis Esophageal reflux Screening for multiple conditions Multiphasic screening Medicare annual wellness visit, subsequent Depression, major, single episode, severe (Multi) Screening for alcohol problem Screening for alcoholism Type 2 diabetes mellitus without complication, without long-term current use of insulin (Multi)- Primary Cardiac risk counseling Primary hypertension Unspecified essential hypertension Hypercholesterolemia Pure hypercholesterolemia B12 deficiency Senile osteoporosis Vitamin B12 deficiency Other B-complex deficiencies Gastroesophageal reflux disease without esophagitis Esophageal reflux Mononeuritis multiplex Vitamin B12 deficiency- Primary Other B-complex deficiencies Flu vaccine need Type 2 diabetes mellitus without complication, without long-term current use of insulin (Multi) Elevated alkaline phosphatase level Cervical radiculopathy Brachial neuritis or radiculitis nos Arthritis of wrist, right Gastroesophageal reflux disease without esophagitis Esophageal reflux Primary hypertension Unspecified essential hypertension 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-HCC) Peripheral vascular disease, unspecified Hypercholesterolemia Pure hypercholesterolemia documented in this encounter [facility] Work Phone: Evaluation note* Diagnosis Poor sleep- Primary Other fatigue Cervical radiculopathy Brachial neuritis or radiculitis nos Primary hypertension Unspecified essential hypertension Medicare annual wellness visit, subsequent ACP (advance care planning) Other specified counseling Full code status Screening for multiple conditions Multiphasic screening Screening for alcohol problem Screening for alcoholism Gastroesophageal reflux disease without esophagitis Esophageal reflux Age-related osteoporosis without current pathological fracture Vitamin D deficiency Vitamin B12 deficiency Other B-complex deficiencies Type 2 diabetes mellitus without complication, without long-term current use of insulin (Multi) Depression, major, single episode, severe (Multi) Achilles tendinitis of right lower extremity- Primary Vitamin B12 deficiency Other B-complex deficiencies Other vitamin B12 deficiency anemia Primary hypertension- Primary Unspecified essential hypertension Laryngitis Acute laryngitis, without mention of obstruction Subacute sinusitis, unspecified location Flu vaccine need Cyanocobalamin deficiency Other B-complex deficiencies B12 deficiency Type 2 diabetes mellitus without complication, without long-term current use of insulin (Multi) Vitamin B12 deficiency Other B-complex deficiencies S/P gastric surgery Other secondary osteoarthritis of both hands Other dysphagia- Primary Hoarseness or changing voice Other voice and resonance disorders Vitamin B12 deficiency Other B-complex deficiencies Laryngitis Acute laryngitis, without mention of obstruction Other vitamin B12 deficiency anemia Flu vaccine need Age-related osteoporosis without current pathological fracture Osteoporosis, unspecified osteoporosis type, unspecified pathological fracture presence Hoarseness or changing voice- Primary Other voice and resonance disorders Vitamin B12 deficiency Other B-complex deficiencies Laryngitis Acute laryngitis, without mention of obstruction Age-related osteoporosis without current pathological fracture- Primary Gastroesophageal reflux disease without esophagitis Esophageal reflux Primary hypertension Unspecified essential hypertension Vitamin D deficiency Vitamin B12 deficiency Other B-complex deficiencies Type 2 diabetes mellitus without complication, without long-term current use of insulin (Multi) Other vitamin B12 deficiency anemia Hypercholesterolemia Pure hypercholesterolemia Depression, major, single episode, severe (Multi) Cyanocobalamin deficiency Other B-complex deficiencies Routine general medical examination at health care facility- Primary Routine general medical examination at a health care facility Other specified postprocedural states Tinea corporis Dermatophytosis of the body Screening mammogram for breast cancer Asymptomatic menopausal state B12 deficiency ACP (advance care planning) Other specified counseling Full code status Hypercholesterolemia Pure hypercholesterolemia Primary hypertension Unspecified essential hypertension Type 2 diabetes mellitus without complication, without long-term current use of insulin (Multi) Senile osteoporosis Vitamin B12 deficiency Other B-complex deficiencies Gastroesophageal reflux disease without esophagitis Esophageal reflux Screening for multiple conditions Multiphasic screening Medicare annual wellness visit, subsequent Depression, major, single episode, severe (Multi) Screening for alcohol problem Screening for alcoholism Type 2 diabetes mellitus without complication, without long-term current use of insulin (Multi)- Primary Cardiac risk counseling Primary hypertension Unspecified essential hypertension Hypercholesterolemia Pure hypercholesterolemia B12 deficiency Senile osteoporosis Vitamin B12 deficiency Other B-complex deficiencies Gastroesophageal reflux disease without esophagitis Esophageal reflux Mononeuritis multiplex Vitamin B12 deficiency- Primary Other B-complex deficiencies Flu vaccine need Type 2 diabetes mellitus without complication, without long-term current use of insulin (Multi) Elevated alkaline phosphatase level Cervical radiculopathy Brachial neuritis or radiculitis nos Arthritis of wrist, right Gastroesophageal reflux disease without esophagitis Esophageal reflux Primary hypertension Unspecified essential hypertension 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 Peripheral vascular disease, unspecified Hypercholesterolemia Pure hypercholesterolemia Contact with and (suspected) exposure to covid-19 COVID-19 documented in this encounter [facility] Work Phone: Evaluation note* Diagnosis Poor sleep- Primary Other fatigue Cervical radiculopathy Brachial neuritis or radiculitis nos Primary hypertension Unspecified essential hypertension Medicare annual wellness visit, subsequent ACP (advance care planning) Other specified counseling Full code status Screening for multiple conditions Multiphasic screening Screening for alcohol problem Screening for alcoholism Gastroesophageal reflux disease without esophagitis Esophageal reflux Age-related osteoporosis without current pathological fracture Vitamin D deficiency Vitamin B12 deficiency Other B-complex deficiencies Type 2 diabetes mellitus without complication, without long-term current use of insulin (Multi) Depression, major, single episode, severe (Multi) Achilles tendinitis of right lower extremity- Primary Vitamin B12 deficiency Other B-complex deficiencies Other vitamin B12 deficiency anemia Primary hypertension- Primary Unspecified essential hypertension Laryngitis Acute laryngitis, without mention of obstruction Subacute sinusitis, unspecified location Flu vaccine need Cyanocobalamin deficiency Other B-complex deficiencies B12 deficiency Type 2 diabetes mellitus without complication, without long-term current use of insulin (Multi) Vitamin B12 deficiency Other B-complex deficiencies S/P gastric surgery Other secondary osteoarthritis of both hands Other dysphagia- Primary Hoarseness or changing voice Other voice and resonance disorders Vitamin B12 deficiency Other B-complex deficiencies Laryngitis Acute laryngitis, without mention of obstruction Other vitamin B12 deficiency anemia Flu vaccine need Age-related osteoporosis without current pathological fracture Osteoporosis, unspecified osteoporosis type, unspecified pathological fracture presence Hoarseness or changing voice- Primary Other voice and resonance disorders Vitamin B12 deficiency Other B-complex deficiencies Laryngitis Acute laryngitis, without mention of obstruction Age-related osteoporosis without current pathological fracture- Primary Gastroesophageal reflux disease without esophagitis Esophageal reflux Primary hypertension Unspecified essential hypertension Vitamin D deficiency Vitamin B12 deficiency Other B-complex deficiencies Type 2 diabetes mellitus without complication, without long-term current use of insulin (Multi) Other vitamin B12 deficiency anemia Hypercholesterolemia Pure hypercholesterolemia Depression, major, single episode, severe (Multi) Cyanocobalamin deficiency Other B-complex deficiencies Routine general medical examination at health care facility- Primary Routine general medical examination at a health care facility Other specified postprocedural states Tinea corporis Dermatophytosis of the body Screening mammogram for breast cancer Asymptomatic menopausal state B12 deficiency ACP (advance care planning) Other specified counseling Full code status Hypercholesterolemia Pure hypercholesterolemia Primary hypertension Unspecified essential hypertension Type 2 diabetes mellitus without complication, without long-term current use of insulin (Multi) Senile osteoporosis Vitamin B12 deficiency Other B-complex deficiencies Gastroesophageal reflux disease without esophagitis Esophageal reflux Screening for multiple conditions Multiphasic screening Medicare annual wellness visit, subsequent Depression, major, single episode, severe (Multi) Screening for alcohol problem Screening for alcoholism Type 2 diabetes mellitus without complication, without long-term current use of insulin (Multi)- Primary Cardiac risk counseling Primary hypertension Unspecified essential hypertension Hypercholesterolemia Pure hypercholesterolemia B12 deficiency Senile osteoporosis Vitamin B12 deficiency Other B-complex deficiencies Gastroesophageal reflux disease without esophagitis Esophageal reflux Mononeuritis multiplex Vitamin B12 deficiency- Primary Other B-complex deficiencies Flu vaccine need Type 2 diabetes mellitus without complication, without long-term current use of insulin (Multi) Elevated alkaline phosphatase level Cervical radiculopathy Brachial neuritis or radiculitis nos Arthritis of wrist, right Gastroesophageal reflux disease without esophagitis Esophageal reflux Primary hypertension Unspecified essential hypertension 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) Peripheral vascular disease, unspecified Hypercholesterolemia Pure hypercholesterolemia Mononeuritis multiplex- Primary Cervical radiculopathy Brachial neuritis or radiculitis nos documented in this encounter [facility] Work Phone: Evaluation note* Diagnosis Poor sleep- Primary Other fatigue Cervical radiculopathy Brachial neuritis or radiculitis nos Primary hypertension Unspecified essential hypertension Medicare annual wellness visit, subsequent ACP (advance care planning) Other specified counseling Full code status Screening for multiple conditions Multiphasic screening Screening for alcohol problem Screening for alcoholism Gastroesophageal reflux disease without esophagitis Esophageal reflux Age-related osteoporosis without current pathological fracture Vitamin D deficiency Vitamin B12 deficiency Other B-complex deficiencies Type 2 diabetes mellitus without complication, without long-term current use of insulin (Multi) Depression, major, single episode, severe (Multi) Achilles tendinitis of right lower extremity- Primary Vitamin B12 deficiency Other B-complex deficiencies Other vitamin B12 deficiency anemia Primary hypertension- Primary Unspecified essential hypertension Laryngitis Acute laryngitis, without mention of obstruction Subacute sinusitis, unspecified location Flu vaccine need Cyanocobalamin deficiency Other B-complex deficiencies B12 deficiency Type 2 diabetes mellitus without complication, without long-term current use of insulin (Multi) Vitamin B12 deficiency Other B-complex deficiencies S/P gastric surgery Other secondary osteoarthritis of both hands Other dysphagia- Primary Hoarseness or changing voice Other voice and resonance disorders Vitamin B12 deficiency Other B-complex deficiencies Laryngitis Acute laryngitis, without mention of obstruction Other vitamin B12 deficiency anemia Flu vaccine need Age-related osteoporosis without current pathological fracture Osteoporosis, unspecified osteoporosis type, unspecified pathological fracture presence Hoarseness or changing voice- Primary Other voice and resonance disorders Vitamin B12 deficiency Other B-complex deficiencies Laryngitis Acute laryngitis, without mention of obstruction Age-related osteoporosis without current pathological fracture- Primary Gastroesophageal reflux disease without esophagitis Esophageal reflux Primary hypertension Unspecified essential hypertension Vitamin D deficiency Vitamin B12 deficiency Other B-complex deficiencies Type 2 diabetes mellitus without complication, without long-term current use of insulin (Multi) Other vitamin B12 deficiency anemia Hypercholesterolemia Pure hypercholesterolemia Depression, major, single episode, severe (Multi) Cyanocobalamin deficiency Other B-complex deficiencies Routine general medical examination at health care facility- Primary Routine general medical examination at a health care facility Other specified postprocedural states Tinea corporis Dermatophytosis of the body Screening mammogram for breast cancer Asymptomatic menopausal state B12 deficiency ACP (advance care planning) Other specified counseling Full code status Hypercholesterolemia Pure hypercholesterolemia Primary hypertension Unspecified essential hypertension Type 2 diabetes mellitus without complication, without long-term current use of insulin (Multi) Senile osteoporosis Vitamin B12 deficiency Other B-complex deficiencies Gastroesophageal reflux disease without esophagitis Esophageal reflux Screening for multiple conditions Multiphasic screening Medicare annual wellness visit, subsequent Depression, major, single episode, severe (Multi) Screening for alcohol problem Screening for alcoholism Mononeuritis multiplex- Primary documented in this encounter [facility] Work Phone: Evaluation note* Diagnosis Poor sleep- Primary Other fatigue Cervical radiculopathy Brachial neuritis or radiculitis nos Primary hypertension Unspecified essential hypertension Medicare annual wellness visit, subsequent ACP (advance care planning) Other specified counseling Full code status Screening for multiple conditions Multiphasic screening Screening for alcohol problem Screening for alcoholism Gastroesophageal reflux disease without esophagitis Esophageal reflux Age-related osteoporosis without current pathological fracture Vitamin D deficiency Vitamin B12 deficiency Other B-complex deficiencies Type 2 diabetes mellitus without complication, without long-term current use of insulin (Multi) Depression, major, single episode, severe (Multi) Achilles tendinitis of right lower extremity- Primary Vitamin B12 deficiency Other B-complex deficiencies Other vitamin B12 deficiency anemia Primary hypertension- Primary Unspecified essential hypertension Laryngitis Acute laryngitis, without mention of obstruction Subacute sinusitis, unspecified location Flu vaccine need Cyanocobalamin deficiency Other B-complex deficiencies B12 deficiency Type 2 diabetes mellitus without complication, without long-term current use of insulin (Multi) Vitamin B12 deficiency Other B-complex deficiencies S/P gastric surgery Other secondary osteoarthritis of both hands Other dysphagia- Primary Hoarseness or changing voice Other voice and resonance disorders Vitamin B12 deficiency Other B-complex deficiencies Laryngitis Acute laryngitis, without mention of obstruction Other vitamin B12 deficiency anemia Flu vaccine need Age-related osteoporosis without current pathological fracture Osteoporosis, unspecified osteoporosis type, unspecified pathological fracture presence Hoarseness or changing voice- Primary Other voice and resonance disorders Vitamin B12 deficiency Other B-complex deficiencies Laryngitis Acute laryngitis, without mention of obstruction Age-related osteoporosis without current pathological fracture- Primary Gastroesophageal reflux disease without esophagitis Esophageal reflux Primary hypertension Unspecified essential hypertension Vitamin D deficiency Vitamin B12 deficiency Other B-complex deficiencies Type 2 diabetes mellitus without complication, without long-term current use of insulin (Multi) Other vitamin B12 deficiency anemia Hypercholesterolemia Pure hypercholesterolemia Depression, major, single episode, severe (Multi) Cyanocobalamin deficiency Other B-complex deficiencies Routine general medical examination at health care facility- Primary Routine general medical examination at a health care facility Other specified postprocedural states Tinea corporis Dermatophytosis of the body Screening mammogram for breast cancer Asymptomatic menopausal state B12 deficiency ACP (advance care planning) Other specified counseling Full code status Hypercholesterolemia Pure hypercholesterolemia Primary hypertension Unspecified essential hypertension Type 2 diabetes mellitus without complication, without long-term current use of insulin (Multi) Senile osteoporosis Vitamin B12 deficiency Other B-complex deficiencies Gastroesophageal reflux disease without esophagitis Esophageal reflux Screening for multiple conditions Multiphasic screening Medicare annual wellness visit, subsequent Depression, major, single episode, severe (Multi) Screening for alcohol problem Screening for alcoholism Type 2 diabetes mellitus without complication, without long-term current use of insulin (Multi)- Primary Cardiac risk counseling Primary hypertension Unspecified essential hypertension Hypercholesterolemia Pure hypercholesterolemia B12 deficiency Senile osteoporosis Vitamin B12 deficiency Other B-complex deficiencies Gastroesophageal reflux disease without esophagitis Esophageal reflux Mononeuritis multiplex documented in this encounter [facility] Work Phone: Evaluation note* Diagnosis Poor sleep- Primary Other fatigue Cervical radiculopathy Brachial neuritis or radiculitis nos Primary hypertension Unspecified essential hypertension Medicare annual wellness visit, subsequent ACP (advance care planning) Other specified counseling Full code status Screening for multiple conditions Multiphasic screening Screening for alcohol problem Screening for alcoholism Gastroesophageal reflux disease without esophagitis Esophageal reflux Age-related osteoporosis without current pathological fracture Vitamin D deficiency Vitamin B12 deficiency Other B-complex deficiencies Type 2 diabetes mellitus without complication, without long-term current use of insulin (CMS/HCC) Depression, major, single episode, severe (CMS/HCC) documented in this encounter [facility] Work Phone: Evaluation note* Diagnosis Poor sleep- Primary Other fatigue Cervical radiculopathy Brachial neuritis or radiculitis nos Primary hypertension Unspecified essential hypertension Medicare annual wellness visit, subsequent ACP (advance care planning) Other specified counseling Full code status Screening for multiple conditions Multiphasic screening Screening for alcohol problem Screening for alcoholism Gastroesophageal reflux disease without esophagitis Esophageal reflux Age-related osteoporosis without current pathological fracture Vitamin D deficiency Vitamin B12 deficiency Other B-complex deficiencies Type 2 diabetes mellitus without complication, without long-term current use of insulin (Multi) Depression, major, single episode, severe (Multi) Achilles tendinitis of right lower extremity- Primary Vitamin B12 deficiency Other B-complex deficiencies Other vitamin B12 deficiency anemia Primary hypertension- Primary Unspecified essential hypertension Laryngitis Acute laryngitis, without mention of obstruction Subacute sinusitis, unspecified location Flu vaccine need Cyanocobalamin deficiency Other B-complex deficiencies B12 deficiency Type 2 diabetes mellitus without complication, without long-term current use of insulin (Multi) Vitamin B12 deficiency Other B-complex deficiencies S/P gastric surgery Other secondary osteoarthritis of both hands Other dysphagia- Primary Hoarseness or changing voice Other voice and resonance disorders Vitamin B12 deficiency Other B-complex deficiencies Laryngitis Acute laryngitis, without mention of obstruction Other vitamin B12 deficiency anemia Flu vaccine need Age-related osteoporosis without current pathological fracture Osteoporosis, unspecified osteoporosis type, unspecified pathological fracture presence Hoarseness or changing voice- Primary Other voice and resonance disorders Vitamin B12 deficiency Other B-complex deficiencies Laryngitis Acute laryngitis, without mention of obstruction Age-related osteoporosis without current pathological fracture- Primary Gastroesophageal reflux disease without esophagitis Esophageal reflux Primary hypertension Unspecified essential hypertension Vitamin D deficiency Vitamin B12 deficiency Other B-complex deficiencies Type 2 diabetes mellitus without complication, without long-term current use of insulin (Multi) Other vitamin B12 deficiency anemia Hypercholesterolemia Pure hypercholesterolemia Depression, major, single episode, severe (Multi) Cyanocobalamin deficiency Other B-complex deficiencies Routine general medical examination at health care facility- Primary Routine general medical examination at a health care facility Other specified postprocedural states Tinea corporis Dermatophytosis of the body Screening mammogram for breast cancer Asymptomatic menopausal state B12 deficiency ACP (advance care planning) Other specified counseling Full code status Hypercholesterolemia Pure hypercholesterolemia Primary hypertension Unspecified essential hypertension Type 2 diabetes mellitus without complication, without long-term current use of insulin (Multi) Senile osteoporosis Vitamin B12 deficiency Other B-complex deficiencies Gastroesophageal reflux disease without esophagitis Esophageal reflux Screening for multiple conditions Multiphasic screening Medicare annual wellness visit, subsequent Depression, major, single episode, severe (Multi) Screening for alcohol problem Screening for alcoholism Type 2 diabetes mellitus without complication, without long-term current use of insulin (Multi)- Primary Cardiac risk counseling Primary hypertension Unspecified essential hypertension Hypercholesterolemia Pure hypercholesterolemia B12 deficiency Senile osteoporosis Vitamin B12 deficiency Other B-complex deficiencies Gastroesophageal reflux disease without esophagitis Esophageal reflux Mononeuritis multiplex Vitamin B12 deficiency- Primary Other B-complex deficiencies Flu vaccine need Type 2 diabetes mellitus without complication, without long-term current use of insulin (Multi) Elevated alkaline phosphatase level Cervical radiculopathy Brachial neuritis or radiculitis nos Arthritis of wrist, right Gastroesophageal reflux disease without esophagitis Esophageal reflux Primary hypertension Unspecified essential hypertension 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) Peripheral vascular disease, unspecified Hypercholesterolemia Pure hypercholesterolemia Neck muscle spasm- Primary Type 2 diabetes mellitus without complication, without long-term current use of insulin (Multi) Cervical radiculopathy Brachial neuritis or radiculitis nos Neck pain Cervicalgia Fall, initial encounter documented in this encounter [facility] Work Phone: Evaluation note* Diagnosis Poor sleep- Primary Other fatigue Cervical radiculopathy Brachial neuritis or radiculitis nos Primary hypertension Unspecified essential hypertension Medicare annual wellness visit, subsequent ACP (advance care planning) Other specified counseling Full code status Screening for multiple conditions Multiphasic screening Screening for alcohol problem Screening for alcoholism Gastroesophageal reflux disease without esophagitis Esophageal reflux Age-related osteoporosis without current pathological fracture Vitamin D deficiency Vitamin B12 deficiency Other B-complex deficiencies Type 2 diabetes mellitus without complication, without long-term current use of insulin (Multi) Depression, major, single episode, severe (Multi) Achilles tendinitis of right lower extremity- Primary Vitamin B12 deficiency Other B-complex deficiencies Other vitamin B12 deficiency anemia Primary hypertension- Primary Unspecified essential hypertension Laryngitis Acute laryngitis, without mention of obstruction Subacute sinusitis, unspecified location Flu vaccine need Cyanocobalamin deficiency Other B-complex deficiencies B12 deficiency Type 2 diabetes mellitus without complication, without long-term current use of insulin (Multi) Vitamin B12 deficiency Other B-complex deficiencies S/P gastric surgery Other secondary osteoarthritis of both hands Other dysphagia- Primary Hoarseness or changing voice Other voice and resonance disorders Vitamin B12 deficiency Other B-complex deficiencies Laryngitis Acute laryngitis, without mention of obstruction Other vitamin B12 deficiency anemia Flu vaccine need Age-related osteoporosis without current pathological fracture Osteoporosis, unspecified osteoporosis type, unspecified pathological fracture presence Hoarseness or changing voice- Primary Other voice and resonance disorders Vitamin B12 deficiency Other B-complex deficiencies Laryngitis Acute laryngitis, without mention of obstruction Age-related osteoporosis without current pathological fracture- Primary Gastroesophageal reflux disease without esophagitis Esophageal reflux Primary hypertension Unspecified essential hypertension Vitamin D deficiency Vitamin B12 deficiency Other B-complex deficiencies Type 2 diabetes mellitus without complication, without long-term current use of insulin (Multi) Other vitamin B12 deficiency anemia Hypercholesterolemia Pure hypercholesterolemia Depression, major, single episode, severe (Multi) Cyanocobalamin deficiency Other B-complex deficiencies Routine general medical examination at health care facility- Primary Routine general medical examination at a health care facility Other specified postprocedural states Tinea corporis Dermatophytosis of the body Screening mammogram for breast cancer Asymptomatic menopausal state B12 deficiency ACP (advance care planning) Other specified counseling Full code status Hypercholesterolemia Pure hypercholesterolemia Primary hypertension Unspecified essential hypertension Type 2 diabetes mellitus without complication, without long-term current use of insulin (Multi) Senile osteoporosis Vitamin B12 deficiency Other B-complex deficiencies Gastroesophageal reflux disease without esophagitis Esophageal reflux Screening for multiple conditions Multiphasic screening Medicare annual wellness visit, subsequent Depression, major, single episode, severe (Multi) Screening for alcohol problem Screening for alcoholism Type 2 diabetes mellitus without complication, without long-term current use of insulin (Multi)- Primary Cardiac risk counseling Primary hypertension Unspecified essential hypertension Hypercholesterolemia Pure hypercholesterolemia B12 deficiency Senile osteoporosis Vitamin B12 deficiency Other B-complex deficiencies Gastroesophageal reflux disease without esophagitis Esophageal reflux Mononeuritis multiplex Vitamin B12 deficiency- Primary Other B-complex deficiencies Flu vaccine need Type 2 diabetes mellitus without complication, without long-term current use of insulin (Multi) Elevated alkaline phosphatase level Cervical radiculopathy Brachial neuritis or radiculitis nos Arthritis of wrist, right Gastroesophageal reflux disease without esophagitis Esophageal reflux Primary hypertension Unspecified essential hypertension 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) Peripheral vascular disease, unspecified Hypercholesterolemia Pure hypercholesterolemia Neck muscle spasm- Primary Type 2 diabetes mellitus without complication, without long-term current use of insulin (Multi) Cervical radiculopathy Brachial neuritis or radiculitis nos Neck pain Cervicalgia Fall, initial encounter Neck muscle spasm documented in this encounter [facility] Work Phone: Evaluation note* Diagnosis Poor sleep- Primary Other fatigue Cervical radiculopathy Brachial neuritis or radiculitis nos Primary hypertension Unspecified essential hypertension Medicare annual wellness visit, subsequent ACP (advance care planning) Other specified counseling Full code status Screening for multiple conditions Multiphasic screening Screening for alcohol problem Screening for alcoholism Gastroesophageal reflux disease without esophagitis Esophageal reflux Age-related osteoporosis without current pathological fracture Vitamin D deficiency Vitamin B12 deficiency Other B-complex deficiencies Type 2 diabetes mellitus without complication, without long-term current use of insulin (Multi) Depression, major, single episode, severe (Multi) Achilles tendinitis of right lower extremity- Primary Vitamin B12 deficiency Other B-complex deficiencies Other vitamin B12 deficiency anemia Primary hypertension- Primary Unspecified essential hypertension Laryngitis Acute laryngitis, without mention of obstruction Subacute sinusitis, unspecified location Flu vaccine need Cyanocobalamin deficiency Other B-complex deficiencies B12 deficiency Type 2 diabetes mellitus without complication, without long-term current use of insulin (Multi) Vitamin B12 deficiency Other B-complex deficiencies S/P gastric surgery Other secondary osteoarthritis of both hands Other dysphagia- Primary Hoarseness or changing voice Other voice and resonance disorders Vitamin B12 deficiency Other B-complex deficiencies Laryngitis Acute laryngitis, without mention of obstruction Other vitamin B12 deficiency anemia Flu vaccine need Age-related osteoporosis without current pathological fracture Osteoporosis, unspecified osteoporosis type, unspecified pathological fracture presence Hoarseness or changing voice- Primary Other voice and resonance disorders Vitamin B12 deficiency Other B-complex deficiencies Laryngitis Acute laryngitis, without mention of obstruction Age-related osteoporosis without current pathological fracture- Primary Gastroesophageal reflux disease without esophagitis Esophageal reflux Primary hypertension Unspecified essential hypertension Vitamin D deficiency Vitamin B12 deficiency Other B-complex deficiencies Type 2 diabetes mellitus without complication, without long-term current use of insulin (Multi) Other vitamin B12 deficiency anemia Hypercholesterolemia Pure hypercholesterolemia Depression, major, single episode, severe (Multi) Cyanocobalamin deficiency Other B-complex deficiencies Routine general medical examination at health care facility- Primary Routine general medical examination at a health care facility Other specified postprocedural states Tinea corporis Dermatophytosis of the body Screening mammogram for breast cancer Asymptomatic menopausal state B12 deficiency ACP (advance care planning) Other specified counseling Full code status Hypercholesterolemia Pure hypercholesterolemia Primary hypertension Unspecified essential hypertension Type 2 diabetes mellitus without complication, without long-term current use of insulin (Multi) Senile osteoporosis Vitamin B12 deficiency Other B-complex deficiencies Gastroesophageal reflux disease without esophagitis Esophageal reflux Screening for multiple conditions Multiphasic screening Medicare annual wellness visit, subsequent Depression, major, single episode, severe (Multi) Screening for alcohol problem Screening for alcoholism Type 2 diabetes mellitus without complication, without long-term current use of insulin (Multi)- Primary Cardiac risk counseling Primary hypertension Unspecified essential hypertension Hypercholesterolemia Pure hypercholesterolemia B12 deficiency Senile osteoporosis Vitamin B12 deficiency Other B-complex deficiencies Gastroesophageal reflux disease without esophagitis Esophageal reflux Mononeuritis multiplex Vitamin B12 deficiency- Primary Other B-complex deficiencies Flu vaccine need Type 2 diabetes mellitus without complication, without long-term current use of insulin (Multi) Elevated alkaline phosphatase level Cervical radiculopathy Brachial neuritis or radiculitis nos Arthritis of wrist, right Gastroesophageal reflux disease without esophagitis Esophageal reflux Primary hypertension Unspecified essential hypertension 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) Peripheral vascular disease, unspecified Hypercholesterolemia Pure hypercholesterolemia Neck muscle spasm- Primary Type 2 diabetes mellitus without complication, without long-term current use of insulin (Multi) Cervical radiculopathy Brachial neuritis or radiculitis nos Neck pain Cervicalgia Fall, initial encounter Neck pain- Primary Cervicalgia documented in this encounter [facility] Work Phone: Evaluation note* Diagnosis Poor sleep- Primary Other fatigue Cervical radiculopathy Brachial neuritis or radiculitis nos Primary hypertension Unspecified essential hypertension Medicare annual wellness visit, subsequent ACP (advance care planning) Other specified counseling Full code status Screening for multiple conditions Multiphasic screening Screening for alcohol problem Screening for alcoholism Gastroesophageal reflux disease without esophagitis Esophageal reflux Age-related osteoporosis without current pathological fracture Vitamin D deficiency Vitamin B12 deficiency Other B-complex deficiencies Type 2 diabetes mellitus without complication, without long-term current use of insulin (Multi) Depression, major, single episode, severe (Multi) Achilles tendinitis of right lower extremity- Primary Vitamin B12 deficiency Other B-complex deficiencies Other vitamin B12 deficiency anemia Primary hypertension- Primary Unspecified essential hypertension Laryngitis Acute laryngitis, without mention of obstruction Subacute sinusitis, unspecified location Flu vaccine need Cyanocobalamin deficiency Other B-complex deficiencies B12 deficiency Type 2 diabetes mellitus without complication, without long-term current use of insulin (Multi) Vitamin B12 deficiency Other B-complex deficiencies S/P gastric surgery Other secondary osteoarthritis of both hands Other dysphagia- Primary Hoarseness or changing voice Other voice and resonance disorders Vitamin B12 deficiency Other B-complex deficiencies Laryngitis Acute laryngitis, without mention of obstruction Other vitamin B12 deficiency anemia Flu vaccine need Age-related osteoporosis without current pathological fracture Osteoporosis, unspecified osteoporosis type, unspecified pathological fracture presence Hoarseness or changing voice- Primary Other voice and resonance disorders Vitamin B12 deficiency Other B-complex deficiencies Laryngitis Acute laryngitis, without mention of obstruction Age-related osteoporosis without current pathological fracture- Primary Gastroesophageal reflux disease without esophagitis Esophageal reflux Primary hypertension Unspecified essential hypertension Vitamin D deficiency Vitamin B12 deficiency Other B-complex deficiencies Type 2 diabetes mellitus without complication, without long-term current use of insulin (Multi) Other vitamin B12 deficiency anemia Hypercholesterolemia Pure hypercholesterolemia Depression, major, single episode, severe (Multi) Cyanocobalamin deficiency Other B-complex deficiencies Routine general medical examination at health care facility- Primary Routine general medical examination at a health care facility Other specified postprocedural states Tinea corporis Dermatophytosis of the body Screening mammogram for breast cancer Asymptomatic menopausal state B12 deficiency ACP (advance care planning) Other specified counseling Full code status Hypercholesterolemia Pure hypercholesterolemia Primary hypertension Unspecified essential hypertension Type 2 diabetes mellitus without complication, without long-term current use of insulin (Multi) Senile osteoporosis Vitamin B12 deficiency Other B-complex deficiencies Gastroesophageal reflux disease without esophagitis Esophageal reflux Screening for multiple conditions Multiphasic screening Medicare annual wellness visit, subsequent Depression, major, single episode, severe (Multi) Screening for alcohol problem Screening for alcoholism Type 2 diabetes mellitus without complication, without long-term current use of insulin (Multi)- Primary Cardiac risk counseling Primary hypertension Unspecified essential hypertension Hypercholesterolemia Pure hypercholesterolemia B12 deficiency Senile osteoporosis Vitamin B12 deficiency Other B-complex deficiencies Gastroesophageal reflux disease without esophagitis Esophageal reflux Mononeuritis multiplex Vitamin B12 deficiency- Primary Other B-complex deficiencies Flu vaccine need Type 2 diabetes mellitus without complication, without long-term current use of insulin (Multi) Elevated alkaline phosphatase level Cervical radiculopathy Brachial neuritis or radiculitis nos Arthritis of wrist, right Gastroesophageal reflux disease without esophagitis Esophageal reflux Primary hypertension Unspecified essential hypertension 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) Peripheral vascular disease, unspecified Hypercholesterolemia Pure hypercholesterolemia Neck muscle spasm- Primary Type 2 diabetes mellitus without complication, without long-term current use of insulin (Multi) Cervical radiculopathy Brachial neuritis or radiculitis nos Neck pain Cervicalgia Fall, initial encounter Neck pain- Primary Cervicalgia Cervicalgia documented in this encounter [facility] Work Phone: Evaluation note* Diagnosis Poor sleep- Primary Other fatigue Cervical radiculopathy Brachial neuritis or radiculitis nos Primary hypertension Unspecified essential hypertension Medicare annual wellness visit, subsequent ACP (advance care planning) Other specified counseling Full code status Screening for multiple conditions Multiphasic screening Screening for alcohol problem Screening for alcoholism Gastroesophageal reflux disease without esophagitis Esophageal reflux Age-related osteoporosis without current pathological fracture Vitamin D deficiency Vitamin B12 deficiency Other B-complex deficiencies Type 2 diabetes mellitus without complication, without long-term current use of insulin (Multi) Depression, major, single episode, severe (Multi) Achilles tendinitis of right lower extremity- Primary Vitamin B12 deficiency Other B-complex deficiencies Other vitamin B12 deficiency anemia Primary hypertension- Primary Unspecified essential hypertension Laryngitis Acute laryngitis, without mention of obstruction Subacute sinusitis, unspecified location Flu vaccine need Cyanocobalamin deficiency Other B-complex deficiencies B12 deficiency Type 2 diabetes mellitus without complication, without long-term current use of insulin (Multi) Vitamin B12 deficiency Other B-complex deficiencies S/P gastric surgery Other secondary osteoarthritis of both hands Other dysphagia- Primary Hoarseness or changing voice Other voice and resonance disorders Vitamin B12 deficiency Other B-complex deficiencies Laryngitis Acute laryngitis, without mention of obstruction Other vitamin B12 deficiency anemia Flu vaccine need Age-related osteoporosis without current pathological fracture Osteoporosis, unspecified osteoporosis type, unspecified pathological fracture presence Hoarseness or changing voice- Primary Other voice and resonance disorders Vitamin B12 deficiency Other B-complex deficiencies Laryngitis Acute laryngitis, without mention of obstruction Age-related osteoporosis without current pathological fracture- Primary Gastroesophageal reflux disease without esophagitis Esophageal reflux Primary hypertension Unspecified essential hypertension Vitamin D deficiency Vitamin B12 deficiency Other B-complex deficiencies Type 2 diabetes mellitus without complication, without long-term current use of insulin (Multi) Other vitamin B12 deficiency anemia Hypercholesterolemia Pure hypercholesterolemia Depression, major, single episode, severe (Multi) Cyanocobalamin deficiency Other B-complex deficiencies Routine general medical examination at health care facility- Primary Routine general medical examination at a health care facility Other specified postprocedural states Tinea corporis Dermatophytosis of the body Screening mammogram for breast cancer Asymptomatic menopausal state B12 deficiency ACP (advance care planning) Other specified counseling Full code status Hypercholesterolemia Pure hypercholesterolemia Primary hypertension Unspecified essential hypertension Type 2 diabetes mellitus without complication, without long-term current use of insulin (Multi) Senile osteoporosis Vitamin B12 deficiency Other B-complex deficiencies Gastroesophageal reflux disease without esophagitis Esophageal reflux Screening for multiple conditions Multiphasic screening Medicare annual wellness visit, subsequent Depression, major, single episode, severe (Multi) Screening for alcohol problem Screening for alcoholism Type 2 diabetes mellitus without complication, without long-term current use of insulin (Multi)- Primary Cardiac risk counseling Primary hypertension Unspecified essential hypertension Hypercholesterolemia Pure hypercholesterolemia B12 deficiency Senile osteoporosis Vitamin B12 deficiency Other B-complex deficiencies Gastroesophageal reflux disease without esophagitis Esophageal reflux Mononeuritis multiplex Vitamin B12 deficiency- Primary Other B-complex deficiencies Flu vaccine need Type 2 diabetes mellitus without complication, without long-term current use of insulin (Multi) Elevated alkaline phosphatase level Cervical radiculopathy Brachial neuritis or radiculitis nos Arthritis of wrist, right Gastroesophageal reflux disease without esophagitis Esophageal reflux Primary hypertension Unspecified essential hypertension 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) Peripheral vascular disease, unspecified Hypercholesterolemia Pure hypercholesterolemia Neck muscle spasm- Primary Type 2 diabetes mellitus without complication, without long-term current use of insulin (Multi) Cervical radiculopathy Brachial neuritis or radiculitis nos Neck pain Cervicalgia Fall, initial encounter Neck pain Cervicalgia documented in this encounter [facility] Work Phone: Evaluation note* Diagnosis Poor sleep- Primary Other fatigue Cervical radiculopathy Brachial neuritis or radiculitis nos Primary hypertension Unspecified essential hypertension Medicare annual wellness visit, subsequent ACP (advance care planning) Other specified counseling Full code status Screening for multiple conditions Multiphasic screening Screening for alcohol problem Screening for alcoholism Gastroesophageal reflux disease without esophagitis Esophageal reflux Age-related osteoporosis without current pathological fracture Vitamin D deficiency Vitamin B12 deficiency Other B-complex deficiencies Type 2 diabetes mellitus without complication, without long-term current use of insulin (Multi) Depression, major, single episode, severe (Multi) Achilles tendinitis of right lower extremity- Primary Vitamin B12 deficiency Other B-complex deficiencies Other vitamin B12 deficiency anemia Primary hypertension- Primary Unspecified essential hypertension Laryngitis Acute laryngitis, without mention of obstruction Subacute sinusitis, unspecified location Flu vaccine need Cyanocobalamin deficiency Other B-complex deficiencies B12 deficiency Type 2 diabetes mellitus without complication, without long-term current use of insulin (Multi) Vitamin B12 deficiency Other B-complex deficiencies S/P gastric surgery Other secondary osteoarthritis of both hands Other dysphagia- Primary Hoarseness or changing voice Other voice and resonance disorders Vitamin B12 deficiency Other B-complex deficiencies Laryngitis Acute laryngitis, without mention of obstruction Other vitamin B12 deficiency anemia Flu vaccine need Age-related osteoporosis without current pathological fracture Osteoporosis, unspecified osteoporosis type, unspecified pathological fracture presence Hoarseness or changing voice- Primary Other voice and resonance disorders Vitamin B12 deficiency Other B-complex deficiencies Laryngitis Acute laryngitis, without mention of obstruction Age-related osteoporosis without current pathological fracture- Primary Gastroesophageal reflux disease without esophagitis Esophageal reflux Primary hypertension Unspecified essential hypertension Vitamin D deficiency Vitamin B12 deficiency Other B-complex deficiencies Type 2 diabetes mellitus without complication, without long-term current use of insulin (Multi) Other vitamin B12 deficiency anemia Hypercholesterolemia Pure hypercholesterolemia Depression, major, single episode, severe (Multi) Cyanocobalamin deficiency Other B-complex deficiencies Routine general medical examination at health care facility- Primary Routine general medical examination at a health care facility Other specified postprocedural states Tinea corporis Dermatophytosis of the body Screening mammogram for breast cancer Asymptomatic menopausal state B12 deficiency ACP (advance care planning) Other specified counseling Full code status Hypercholesterolemia Pure hypercholesterolemia Primary hypertension Unspecified essential hypertension Type 2 diabetes mellitus without complication, without long-term current use of insulin (Multi) Senile osteoporosis Vitamin B12 deficiency Other B-complex deficiencies Gastroesophageal reflux disease without esophagitis Esophageal reflux Screening for multiple conditions Multiphasic screening Medicare annual wellness visit, subsequent Depression, major, single episode, severe (Multi) Screening for alcohol problem Screening for alcoholism Type 2 diabetes mellitus without complication, without long-term current use of insulin (Multi)- Primary Cardiac risk counseling Primary hypertension Unspecified essential hypertension Hypercholesterolemia Pure hypercholesterolemia B12 deficiency Senile osteoporosis Vitamin B12 deficiency Other B-complex deficiencies Gastroesophageal reflux disease without esophagitis Esophageal reflux Mononeuritis multiplex Vitamin B12 deficiency- Primary Other B-complex deficiencies Flu vaccine need Type 2 diabetes mellitus without complication, without long-term current use of insulin (Multi) Elevated alkaline phosphatase level Cervical radiculopathy Brachial neuritis or radiculitis nos Arthritis of wrist, right Gastroesophageal reflux disease without esophagitis Esophageal reflux Primary hypertension Unspecified essential hypertension 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) Peripheral vascular disease, unspecified Hypercholesterolemia Pure hypercholesterolemia Neck muscle spasm- Primary Type 2 diabetes mellitus without complication, without long-term current use of insulin (Multi) Cervical radiculopathy Brachial neuritis or radiculitis nos Neck pain Cervicalgia Fall, initial encounter Encounter for screening mammogram for breast cancer- Primary B12 deficiency Full code status ACP (advance care planning) Other specified counseling Primary hypertension Unspecified essential hypertension Hypercholesterolemia Pure hypercholesterolemia Cardiac risk counseling Vitamin D deficiency Vitamin B12 deficiency Other B-complex deficiencies Senile osteoporosis Type 2 diabetes mellitus without complication, without long-term current use of insulin (Multi) Gastroesophageal reflux disease without esophagitis Esophageal reflux Depression, major, single episode, severe (Multi) Wellness examination Encounter for screening mammogram for breast cancer documented in this encounter [facility] Work Phone: Evaluation note* Diagnosis Primary osteoarthritis of left knee Primary localized osteoarthrosis, lower leg Chronic pain of right knee Vasculitis Arteritis, unspecified Presence of right artificial knee joint Knee joint replacement by other means [facility] Poor sleep- Primary Other fatigue Cervical radiculopathy Brachial neuritis or radiculitis nos Primary hypertension Unspecified essential hypertension Medicare annual wellness visit, subsequent ACP (advance care planning) Other specified counseling Full code status Screening for multiple conditions Multiphasic screening Screening for alcohol problem Screening for alcoholism Gastroesophageal reflux disease without esophagitis Esophageal reflux Age-related osteoporosis without current pathological fracture Vitamin D deficiency Vitamin B12 deficiency Other B-complex deficiencies Type 2 diabetes mellitus without complication, without long-term current use of insulin Depression, major, single episode, severe (Multi) Achilles tendinitis of right lower extremity- Primary Vitamin B12 deficiency Other B-complex deficiencies Other vitamin B12 deficiency anemia Primary hypertension- Primary Unspecified essential hypertension Laryngitis Acute laryngitis, without mention of obstruction Subacute sinusitis, unspecified location Flu vaccine need Cyanocobalamin deficiency Other B-complex deficiencies B12 deficiency Type 2 diabetes mellitus without complication, without long-term current use of insulin Vitamin B12 deficiency Other B-complex deficiencies S/P gastric surgery Other secondary osteoarthritis of both hands Other dysphagia- Primary Hoarseness or changing voice Other voice and resonance disorders Vitamin B12 deficiency Other B-complex deficiencies Laryngitis Acute laryngitis, without mention of obstruction Other vitamin B12 deficiency anemia Flu vaccine need Age-related osteoporosis without current pathological fracture Osteoporosis, unspecified osteoporosis type, unspecified pathological fracture presence Hoarseness or changing voice- Primary Other voice and resonance disorders Vitamin B12 deficiency Other B-complex deficiencies Laryngitis Acute laryngitis, without mention of obstruction Age-related osteoporosis without current pathological fracture- Primary Gastroesophageal reflux disease without esophagitis Esophageal reflux Primary hypertension Unspecified essential hypertension Vitamin D deficiency Vitamin B12 deficiency Other B-complex deficiencies Type 2 diabetes mellitus without complication, without long-term current use of insulin Other vitamin B12 deficiency anemia Hypercholesterolemia Pure hypercholesterolemia Depression, major, single episode, severe (Multi) Cyanocobalamin deficiency Other B-complex deficiencies Routine general medical examination at health care facility- Primary Routine general medical examination at a health care facility Other specified postprocedural states Tinea corporis Dermatophytosis of the body Screening mammogram for breast cancer Asymptomatic menopausal state B12 deficiency ACP (advance care planning) Other specified counseling Full code status Hypercholesterolemia Pure hypercholesterolemia Primary hypertension Unspecified essential hypertension Type 2 diabetes mellitus without complication, without long-term current use of insulin Senile osteoporosis Vitamin B12 deficiency Other B-complex deficiencies Gastroesophageal reflux disease without esophagitis Esophageal reflux Screening for multiple conditions Multiphasic screening Medicare annual wellness visit, subsequent Depression, major, single episode, severe (Multi) Screening for alcohol problem Screening for alcoholism Type 2 diabetes mellitus without complication, without long-term current use of insulin- Primary Cardiac risk counseling Primary hypertension Unspecified essential hypertension Hypercholesterolemia Pure hypercholesterolemia B12 deficiency Senile osteoporosis Vitamin B12 deficiency Other B-complex deficiencies Gastroesophageal reflux disease without esophagitis Esophageal reflux Mononeuritis multiplex Vitamin B12 deficiency- Primary Other B-complex deficiencies Flu vaccine need Type 2 diabetes mellitus without complication, without long-term current use of insulin Elevated alkaline phosphatase level Cervical radiculopathy Brachial neuritis or radiculitis nos Arthritis of wrist, right Gastroesophageal reflux disease without esophagitis Esophageal reflux Primary hypertension Unspecified essential hypertension 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) Peripheral vascular disease, unspecified Hypercholesterolemia Pure hypercholesterolemia Neck muscle spasm- Primary Type 2 diabetes mellitus without complication, without long-term current use of insulin Cervical radiculopathy Brachial neuritis or radiculitis nos Neck pain Cervicalgia Fall, initial encounter Encounter for screening mammogram for breast cancer- Primary B12 deficiency Full code status ACP (advance care planning) Other specified counseling Primary hypertension Unspecified essential hypertension Hypercholesterolemia Pure hypercholesterolemia Cardiac risk counseling Vitamin D deficiency Vitamin B12 deficiency Other B-complex deficiencies Senile osteoporosis Type 2 diabetes mellitus without complication, without long-term current use of insulin Gastroesophageal reflux disease without esophagitis Esophageal reflux Depression, major, single episode, severe (Multi) Wellness examination Cervicalgia- Primary Cervical radiculopathy Brachial neuritis or radiculitis nos documented in this encounter [facility] Work Phone: Evaluation note* Diagnosis Closed fracture of distal end of left radius, unspecified fracture morphology, initial encounter- [facility] Diagnosis Closed Colles' fracture of left radius, initial encounter [facility] Diagnosis Poor sleep- Primary Other fatigue Cervical radiculopathy Brachial neuritis or radiculitis nos Primary hypertension Unspecified essential hypertension Medicare annual wellness visit, subsequent ACP (advance care planning) Other specified counseling Full code status Screening for multiple conditions Multiphasic screening Screening for alcohol problem Screening for alcoholism Gastroesophageal reflux disease without esophagitis Esophageal reflux Age-related osteoporosis without current pathological fracture Vitamin D deficiency Vitamin B12 deficiency Other B-complex deficiencies Type 2 diabetes mellitus without complication, without long-term current use of insulin Depression, major, single episode, severe (Multi) Achilles tendinitis of right lower extremity- Primary Vitamin B12 deficiency Other B-complex deficiencies Other vitamin B12 deficiency anemia Primary hypertension- Primary Unspecified essential hypertension Laryngitis Acute laryngitis, without mention of obstruction Subacute sinusitis, unspecified location Flu vaccine need Cyanocobalamin deficiency Other B-complex deficiencies B12 deficiency Type 2 diabetes mellitus without complication, without long-term current use of insulin Vitamin B12 deficiency Other B-complex deficiencies S/P gastric surgery Other secondary osteoarthritis of both hands Other dysphagia- Primary Hoarseness or changing voice Other voice and resonance disorders Vitamin B12 deficiency Other B-complex deficiencies Laryngitis Acute laryngitis, without mention of obstruction Other vitamin B12 deficiency anemia Flu vaccine need Age-related osteoporosis without current pathological fracture Osteoporosis, unspecified osteoporosis type, unspecified pathological fracture presence Hoarseness or changing voice- Primary Other voice and resonance disorders Vitamin B12 deficiency Other B-complex deficiencies Laryngitis Acute laryngitis, without mention of obstruction Age-related osteoporosis without current pathological fracture- Primary Gastroesophageal reflux disease without esophagitis Esophageal reflux Primary hypertension Unspecified essential hypertension Vitamin D deficiency Vitamin B12 deficiency Other B-complex deficiencies Type 2 diabetes mellitus without complication, without long-term current use of insulin Other vitamin B12 deficiency anemia Hypercholesterolemia Pure hypercholesterolemia Depression, major, single episode, severe (Multi) Cyanocobalamin deficiency Other B-complex deficiencies Routine general medical examination at health care facility- Primary Routine general medical examination at a health care facility Other specified postprocedural states Tinea corporis Dermatophytosis of the body Screening mammogram for breast cancer Asymptomatic menopausal state B12 deficiency ACP (advance care planning) Other specified counseling Full code status Hypercholesterolemia Pure hypercholesterolemia Primary hypertension Unspecified essential hypertension Type 2 diabetes mellitus without complication, without long-term current use of insulin Senile osteoporosis Vitamin B12 deficiency Other B-complex deficiencies Gastroesophageal reflux disease without esophagitis Esophageal reflux Screening for multiple conditions Multiphasic screening Medicare annual wellness visit, subsequent Depression, major, single episode, severe (Multi) Screening for alcohol problem Screening for alcoholism Type 2 diabetes mellitus without complication, without long-term current use of insulin- Primary Cardiac risk counseling Primary hypertension Unspecified essential hypertension Hypercholesterolemia Pure hypercholesterolemia B12 deficiency Senile osteoporosis Vitamin B12 deficiency Other B-complex deficiencies Gastroesophageal reflux disease without esophagitis Esophageal reflux Mononeuritis multiplex Vitamin B12 deficiency- Primary Other B-complex deficiencies Flu vaccine need Type 2 diabetes mellitus without complication, without long-term current use of insulin Elevated alkaline phosphatase level Cervical radiculopathy Brachial neuritis or radiculitis nos Arthritis of wrist, right Gastroesophageal reflux disease without esophagitis Esophageal reflux Primary hypertension Unspecified essential hypertension 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) Peripheral vascular disease, unspecified Hypercholesterolemia Pure hypercholesterolemia Neck muscle spasm- Primary Type 2 diabetes mellitus without complication, without long-term current use of insulin Cervical radiculopathy Brachial neuritis or radiculitis nos Neck pain Cervicalgia Fall, initial encounter Encounter for screening mammogram for breast cancer- Primary B12 deficiency Full code status ACP (advance care planning) Other specified counseling Primary hypertension Unspecified essential hypertension Hypercholesterolemia Pure hypercholesterolemia Cardiac risk counseling Vitamin D deficiency Vitamin B12 deficiency Other B-complex deficiencies Senile osteoporosis Type 2 diabetes mellitus without complication, without long-term current use of insulin Gastroesophageal reflux disease without esophagitis Esophageal reflux Depression, major, single episode, severe (Multi) Wellness examination Cellulitis of left thumb- Primary Skin ulcer, limited to breakdown of skin documented in this encounter [facility] Work Phone: Evaluation note* Diagnosis Closed Colles' fracture of left radius with routine healing, subsequent encounter- Primary Post-operative state Other postprocedural status [facility] Pain and swelling of wrist, left- Primary Closed Colles' fracture of left radius with routine healing, subsequent encounter Post-operative state Other postprocedural status [facility] Diagnosis Closed Colles' fracture of left radius, initial encounter- Primary [facility] Diagnosis Poor sleep- Primary Other fatigue Cervical radiculopathy Brachial neuritis or radiculitis nos Primary hypertension Unspecified essential hypertension Medicare annual wellness visit, subsequent ACP (advance care planning) Other specified counseling Full code status Screening for multiple conditions Multiphasic screening Screening for alcohol problem Screening for alcoholism Gastroesophageal reflux disease without esophagitis Esophageal reflux Age-related osteoporosis without current pathological fracture Vitamin D deficiency Vitamin B12 deficiency Other B-complex deficiencies Type 2 diabetes mellitus without complication, without long-term current use of insulin Depression, major, single episode, severe (Multi) Achilles tendinitis of right lower extremity- Primary Vitamin B12 deficiency Other B-complex deficiencies Other vitamin B12 deficiency anemia Primary hypertension- Primary Unspecified essential hypertension Laryngitis Acute laryngitis, without mention of obstruction Subacute sinusitis, unspecified location Flu vaccine need Cyanocobalamin deficiency Other B-complex deficiencies B12 deficiency Type 2 diabetes mellitus without complication, without long-term current use of insulin Vitamin B12 deficiency Other B-complex deficiencies S/P gastric surgery Other secondary osteoarthritis of both hands Other dysphagia- Primary Hoarseness or changing voice Other voice and resonance disorders Vitamin B12 deficiency Other B-complex deficiencies Laryngitis Acute laryngitis, without mention of obstruction Other vitamin B12 deficiency anemia Flu vaccine need Age-related osteoporosis without current pathological fracture Osteoporosis, unspecified osteoporosis type, unspecified pathological fracture presence Hoarseness or changing voice- Primary Other voice and resonance disorders Vitamin B12 deficiency Other B-complex deficiencies Laryngitis Acute laryngitis, without mention of obstruction Age-related osteoporosis without current pathological fracture- Primary Gastroesophageal reflux disease without esophagitis Esophageal reflux Primary hypertension Unspecified essential hypertension Vitamin D deficiency Vitamin B12 deficiency Other B-complex deficiencies Type 2 diabetes mellitus without complication, without long-term current use of insulin Other vitamin B12 deficiency anemia Hypercholesterolemia Pure hypercholesterolemia Depression, major, single episode, severe (Multi) Cyanocobalamin deficiency Other B-complex deficiencies Routine general medical examination at health care facility- Primary Routine general medical examination at a health care facility Other specified postprocedural states Tinea corporis Dermatophytosis of the body Screening mammogram for breast cancer Asymptomatic menopausal state B12 deficiency ACP (advance care planning) Other specified counseling Full code status Hypercholesterolemia Pure hypercholesterolemia Primary hypertension Unspecified essential hypertension Type 2 diabetes mellitus without complication, without long-term current use of insulin Senile osteoporosis Vitamin B12 deficiency Other B-complex deficiencies Gastroesophageal reflux disease without esophagitis Esophageal reflux Screening for multiple conditions Multiphasic screening Medicare annual wellness visit, subsequent Depression, major, single episode, severe (Multi) Screening for alcohol problem Screening for alcoholism Type 2 diabetes mellitus without complication, without long-term current use of insulin- Primary Cardiac risk counseling Primary hypertension Unspecified essential hypertension Hypercholesterolemia Pure hypercholesterolemia B12 deficiency Senile osteoporosis Vitamin B12 deficiency Other B-complex deficiencies Gastroesophageal reflux disease without esophagitis Esophageal reflux Mononeuritis multiplex Vitamin B12 deficiency- Primary Other B-complex deficiencies Flu vaccine need Type 2 diabetes mellitus without complication, without long-term current use of insulin Elevated alkaline phosphatase level Cervical radiculopathy Brachial neuritis or radiculitis nos Arthritis of wrist, right Gastroesophageal reflux disease without esophagitis Esophageal reflux Primary hypertension Unspecified essential hypertension 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, unspecified whether serious comorbidity present Other fatigue Peripheral vascular disease, unspecified Hypercholesterolemia Pure hypercholesterolemia Neck muscle spasm- Primary Type 2 diabetes mellitus without complication, without long-term current use of insulin Cervical radiculopathy Brachial neuritis or radiculitis nos Neck pain Cervicalgia Fall, initial encounter Encounter for screening mammogram for breast cancer- Primary B12 deficiency Full code status ACP (advance care planning) Other specified counseling Primary hypertension Unspecified essential hypertension Hypercholesterolemia Pure hypercholesterolemia Cardiac risk counseling Vitamin D deficiency Vitamin B12 deficiency Other B-complex deficiencies Senile osteoporosis Type 2 diabetes mellitus without complication, without long-term current use of insulin Gastroesophageal reflux disease without esophagitis Esophageal reflux Depression, major, single episode, severe (Multi) Wellness examination Urinary tract infection without hematuria, site unspecified documented in this encounter [facility] Work Phone: Evaluation note* Diagnosis Pain and swelling of wrist, left- Primary Post-operative state Other postprocedural status Closed Colles' fracture of left radius with routine healing, subsequent encounter [facility] Diagnosis Closed Colles' fracture of left radius, initial encounter documented in this encounter [facility] note* Diagnosis Post-operative state- Primary Other postprocedural status documented in this encounter [facility] note* Diagnosis Poor sleep- Primary Other fatigue Cervical radiculopathy Brachial neuritis or radiculitis nos Primary hypertension Unspecified essential hypertension Medicare annual wellness visit, subsequent ACP (advance care planning) Other specified counseling Full code status Screening for multiple conditions Multiphasic screening Screening for alcohol problem Screening for alcoholism Gastroesophageal reflux disease without esophagitis Esophageal reflux Age-related osteoporosis without current pathological fracture Vitamin D deficiency Vitamin B12 deficiency Other B-complex deficiencies Type 2 diabetes mellitus without complication, without long-term current use of insulin Depression, major, single episode, severe (Multi) Achilles tendinitis of right lower extremity- Primary Vitamin B12 deficiency Other B-complex deficiencies Other vitamin B12 deficiency anemia Primary hypertension- Primary Unspecified essential hypertension Laryngitis Acute laryngitis, without mention of obstruction Subacute sinusitis, unspecified location Flu vaccine need Cyanocobalamin deficiency Other B-complex deficiencies B12 deficiency Type 2 diabetes mellitus without complication, without long-term current use of insulin Vitamin B12 deficiency Other B-complex deficiencies S/P gastric surgery Other secondary osteoarthritis of both hands Other dysphagia- Primary Hoarseness or changing voice Other voice and resonance disorders Vitamin B12 deficiency Other B-complex deficiencies Laryngitis Acute laryngitis, without mention of obstruction Other vitamin B12 deficiency anemia Flu vaccine need Age-related osteoporosis without current pathological fracture Osteoporosis, unspecified osteoporosis type, unspecified pathological fracture presence Hoarseness or changing voice- Primary Other voice and resonance disorders Vitamin B12 deficiency Other B-complex deficiencies Laryngitis Acute laryngitis, without mention of obstruction Age-related osteoporosis without current pathological fracture- Primary Gastroesophageal reflux disease without esophagitis Esophageal reflux Primary hypertension Unspecified essential hypertension Vitamin D deficiency Vitamin B12 deficiency Other B-complex deficiencies Type 2 diabetes mellitus without complication, without long-term current use of insulin Other vitamin B12 deficiency anemia Hypercholesterolemia Pure hypercholesterolemia Depression, major, single episode, severe (Multi) Cyanocobalamin deficiency Other B-complex deficiencies Routine general medical examination at health care facility- Primary Routine general medical examination at a health care facility Other specified postprocedural states Tinea corporis Dermatophytosis of the body Screening mammogram for breast cancer Asymptomatic menopausal state B12 deficiency ACP (advance care planning) Other specified counseling Full code status Hypercholesterolemia Pure hypercholesterolemia Primary hypertension Unspecified essential hypertension Type 2 diabetes mellitus without complication, without long-term current use of insulin Senile osteoporosis Vitamin B12 deficiency Other B-complex deficiencies Gastroesophageal reflux disease without esophagitis Esophageal reflux Screening for multiple conditions Multiphasic screening Medicare annual wellness visit, subsequent Depression, major, single episode, severe (Multi) Screening for alcohol problem Screening for alcoholism Type 2 diabetes mellitus without complication, without long-term current use of insulin- Primary Cardiac risk counseling Primary hypertension Unspecified essential hypertension Hypercholesterolemia Pure hypercholesterolemia B12 deficiency Senile osteoporosis Vitamin B12 deficiency Other B-complex deficiencies Gastroesophageal reflux disease without esophagitis Esophageal reflux Mononeuritis multiplex Vitamin B12 deficiency- Primary Other B-complex deficiencies Flu vaccine need Type 2 diabetes mellitus without complication, without long-term current use of insulin Elevated alkaline phosphatase level Cervical radiculopathy Brachial neuritis or radiculitis nos Arthritis of wrist, right Gastroesophageal reflux disease without esophagitis Esophageal reflux Primary hypertension Unspecified essential hypertension 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, unspecified whether serious comorbidity present Other fatigue Peripheral vascular disease, unspecified Hypercholesterolemia Pure hypercholesterolemia Neck muscle spasm- Primary Type 2 diabetes mellitus without complication, without long-term current use of insulin Cervical radiculopathy Brachial neuritis or radiculitis nos Neck pain Cervicalgia Fall, initial encounter Encounter for screening mammogram for breast cancer- Primary B12 deficiency Full code status ACP (advance care planning) Other specified counseling Primary hypertension Unspecified essential hypertension Hypercholesterolemia Pure hypercholesterolemia Cardiac risk counseling Vitamin D deficiency Vitamin B12 deficiency Other B-complex deficiencies Senile osteoporosis Type 2 diabetes mellitus without complication, without long-term current use of insulin Gastroesophageal reflux disease without esophagitis Esophageal reflux Depression, major, single episode, severe (Multi) Wellness examination Mononeuritis multiplex- Primary Cervical radiculopathy Brachial neuritis or radiculitis nos documented in this encounter [facility] Work Phone: History of Present illness Narrative* Patient is here for follow-up on her diabetes, high cholesterol, B12 shot and medication management. * Patient notes that the pain appropriate 40 mg dose is still giving her a lot of heartburn and reflux symptoms of breakthrough. 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 * Patient also was getting her Prolia injections at her [facility] but would like to switch and get them here which we can make arrangements for * Overall patient notes that she is feeling well [facility] Work Phone: History of Present illness Narrative* Patient is here for follow-up on her diabetes, high cholesterol, B12 shot and medication management. * Patient notes that the pain appropriate 40 mg dose is still giving her a lot of heartburn and reflux symptoms of breakthrough. 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 * Patient also was getting her Prolia injections at her [facility] but would like to switch and get them here which we can make arrangements for * Overall patient notes that she is feeling well [facility] [employer] [facility] Phone: History of Present illness Narrative* Patient recently had an appointment scheduled for depression but when she called she mentioned she had been having 2 weeks of diarrhea. And had begun with nausea and vomiting and now she could not seem to get the diarrhea to stop. * She had no known antibiotics and now other exposure to C. difficile to her knowledge. Because she had a cotton-like sensation in her mouth I was quite concerned she was dehydrated and sent her to theER. Once in the ER they did do stool studies on her and gave her IV fluids. Patient said she felt im mediately better but has noticed the cottonmouth is starting to return today. They did do stool studies on her and it determined that she was positive for Campylobacter. She does have a true azithromycin allergy therefore we put her on Cipro since she said erythromycin also upset her stomach. * Patient's brother recently from cancer and she admits she is very depressed so depression screen was done in the office today. She scored a 20 showing severe depression but she has no suicidal thoughts or ideation. [facility] Work Phone: History of Present illness Narrative* The patient is being seen for the subsequent annual wellness visit. * Past Medical, Surgical and Family History: reviewed and updated in chart. * Interval History: Patient has not been hospitalized previously. * Medications and Supplements: Review of all medications by a prescribing practitioner or clinical pharmacist (such as prescriptions, OTCs, herbal therapies and supplements) documented in the medical record. * No, the patient is not using opioids. * Patient Self Assessment of Health Status: fair. * Tobacco use: Non-User * Alcohol use: Non-User * Illicit drug use: Non-User * Current diet: well balanced diet, does consume adequate fluids and does consume caffeine. * Exercise Frequency: infrequently. * Depression/Suicide Screening: . * During the past 2 weeks, the patient has not felt down, depressed or hopeless. * During the past 2 weeks, the patient has not felt little interest or pleasure in doing things. * Hearing Impairment: none. * Cognitive Impairment: No cognitive impairment observed, patient or family reported no cognitive impairment. * Bathing: performs independently. * Dressing: performs independently. * Walking: performs independently. * Toileting: performs independently. * Feeding: performs independently. * Personal Hygiene: performs independently. * Bowels: continent. * Bladder: continent. * Managing Finances: performs independently. * Shopping: performs independently. * Managing Medications: performs independently. * Housework / Basic Home Maintenance: performs independently. * Handling Transportation: performs independently. * Preparing Meals: performs independently. * Using the Telephone/ Communication Devices: performs independently. * Falls Risk Screening:. PORSHA has not fallen in the last 6 months. * Home safety risk factors: none. * Advance directives:. Advance Care Planning discussed and documented in the medical record, patient did not wish or was not able to name a surrogate decision maker or provide an advance care plan. Patient has no living will. Patient has no healthcare POA. * Patient's End of Life Decisions: End of life decisions were reviewed with the patient. I agree to follow the patient's decisions. Concerns with the patient's end of life decisions: Patient currently does not have a living will or power of die operator for healthcare but realizes she should get these doc uments completed. I recommended going to the local [facility], library researching online to find these documents and to complete them as soon as possible. She could also see an die operator and she says that she is aware of someplace she can get the documents. She is encouraged to complete them and bring us a copy. * Patient is here for an annual wellness visit and to follow-up on her arthritis, cholesterol and hypertension. * Overall she is doing well and has no new complaints. 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 [facility] Work Phone: History of Present illness Narrative* Patient is here for routine management of her hypertension, gastroesophageal reflux disease, osteoporosis, depression and cholesterol. * Currently she is doing well and has no new complaints. * Patient does want a flu shot today as well as her B12 shot. [facility] Work Phone: History of Present illness Narrative* Referring Provider: Dr. Villela (internal medicine) for sleep apnea evaluation * Porsha House has a past medical history significant for depression, GERD, HTN, OA. * PAST SLEEP HISTORY: * Patient has not had a sleep study in the past. 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 * -does not believe she snores but does report some sleep maintenance issues * -denies any choking/gasping or friends have not noticed any witnessed apneas * -unaware of any family h/o sleep apnea * -does use phone/electronics sometimes in bed while trying to fall asleep * -does drink caffeine all day up until bed time * SLEEP AIDS: does use Tylenol PM nightly --> instructed her today on risks of terminal carman use and advised to discontinue nightly use * Caffeine:5 total - 2 servings coffee in AM + iced tea x3 servings or more up until bed time * SLEEP SCHEDULE: * In bed: 1AM * Subjective sleep latency: 90 minutes * Awakenings during night: * 2 - unsure what wakes her up * Final awakening time: 6:10AM; then around 7AM goes back to sleep for another 1-2 hours * Overall estimate of total sleep time: 4-6 hours depending on the day * On weekends/Non-work days: sleeps until 9AM * Naps: none * DAYTIME/SOCIAL Hx: * ALCOHOL: none * DRUGS: none * SMOKING HX: non smoker * ENT surgeries: tonsillectomy * Family Hx: No family h/o ELLEN or sleep disorders to patient's knowledge * BREATHING DURING SLEEP: No snoring during sleep. No snorting during sleep. No witnessed apneas. No gasping/choking for air. No nasal congestion during sleep. No mouth breathing during sleep. No nightsweats during sleep. Does not wake with racing heart. Nocturnal gastroesophageal reflux. No nocturnal cough. * Sleep Positioning: supine. * MORNING SYMPTOMS: Morning headaches. Morning dry mouth. Morning sore throat. Unrefreshing sleep. * DAYTIME: Daytime sleepiness. Fatigue. Trouble remembering things in daytime. Trouble staying focused in daytime. Irritable during the day. No drowsy driving. No history of car accidents due to drowsydriving. No near-miss car accidents due to drowsy driving. * HYPERSOMNIA: No symptoms of a hypersomnolence disorder. * LEGS AT NIGHT: No symptoms of restless legs syndrome (RLS). * MOVEMENTS IN SLEEP: No seizures in sleep. No stereotypic behavior. No frequent leg kicks at night. Bruxism (teeth grinding). with stress; discussed mouthguard/talk to dentist . No rhythmic movements in sleep. * PARASOMNIA: No symptoms of problem parasomnias. [id number] Work Phone: Instructions* Name Dates Details Instructions not documented [id number] Work Phone: Instructions* Name Dates Details Instructions not documented [facility] Work Phone: Reason for referral (narrative)* Consultation (Routine) - Pending Review Specialty Diagnoses / Procedures Referred By Will reno Referred To Contact Otolaryngology Diagnoses Other dysphagia Hoarseness or changing voice Procedures ID OFFICE/OUTPATIENT [facility] 60-74 MINUTES Ericka Villela MD [address] [facility], [address] [address] Referral ID Status Reason Start Date Expiration Date Visits Requested Visits Authorized [id number] Pending Review Specialty Services Required 07/22/2023 01/18/2024 1 1 * Imaging (Routine) - Pending Review Specialty Diagnoses / Procedures Referred By Will reno Referred To Contact Radiology Diagnoses Other dysphagia Hoarseness or changing voice Procedures FL modified barium swallow study Ercika Villela MD [address] [facility], [address] [address] Referral ID Status Reason Start Date Expiration Date Visits Requested Visits Authorized [id number] Pending Review Perform Procedure 07/22/2023 01/18/2024 1 1 [facility] Work Phone: Reason for referral (narrative)* Diagnostic Procedure Only (Routine) - Closed Specialty Diagnoses / Procedures Referred By Contac t Referred To Contact XR IMAGING Diagnoses Left knee pain, unspecified chronicity Procedures XR KNEE GENERAL 4V AP BOTH/PA BOTH/LAT/MERC LEFT RADIOLOGIC EXAM KNEE COMPLETE 4/MORE VIEWS Celso Martell PA-C [address] [place] [address] [place] [address] Referral ID Status Reason Start Date Expiration Date V isits Requested Visits Authorized [id number] Closed Auto-Generate d Referral 04/11/2024 05/11/2025 1 1 [facility] for visit Narrative* Diagnostic Procedure Only (Routine) - Closed Specialty Diagnoses / Procedures Referred By Contac t Referred To Contact XR IMAGING Diagnoses Left knee pain, unspecified chronicity Procedures XR KNEE GENERAL 4V AP BOTH/PA BOTH/LAT/MERC LEFT RADIOLOGIC EXAM KNEE COMPLETE 4/MORE VIEWS Celso Martell PA-C [address] [place] [address] [place] [address] Referral ID Status Reason Start Date Expiration Date V isits Requested Visits Authorized [id number] Closed Auto-Generate d Referral 04/11/2024 05/11/2025 1 1 [facility] for visit Narrative* Clinic-Administered Medication (Routine) - Pending Review Specialty Diagnoses / Procedures Referred By Contac t Referred To Contact Diagnoses Vitamin B12 deficiency Ericka Villela MD [address] [facility], [address] [address] Phone: tel: fax: Referral ID Status Reason Start Date Expiration Date V isits Requested Visits Authorized [id number] Pending Review 08/24/2024 08/24/2025 1 1 [facility] Work Phone: Revctd for visit Narrative* Imaging (Routine) - Pending Review Specialty Diagnoses / Procedures Referred By Contac t Referred To Contact Radiology Diagnoses Neck muscle spasm Procedures XR cervical spine complete 4-5 views XR cervical spine 2-3 views Ericka Villela MD [address] [facility], [address] [address] Phone: tel: fax: Referral ID Status Reason Start Date Expiration Date Visits Requested Visits Authorized [id number] Pending Review Perform Procedure 10/25/2024 10/25/2025 1 1 [facility] Work Phone: reason for visit Narrative* Imaging (Routine) - Authorized Specialty Diagnoses / Procedures Referred By Contac t Referred To Contact Radiology Diagnoses Neck pain Procedures XR cervical spine 2-3 views Marilee Wiseman MD [address] [address] Phone: tel: fax: Referral ID Status Reason Start Date Expiration Date Visits Requested Visits Authorized [id number] Authorized Perform Procedure 12/19/2024 12/19/2025 1 1 [facility] Work Phone: Reason for visit Narrative* Imaging (Routine) - Authorized Specialty Diagnoses / Procedures Referred By Contac t Referred To Contact Radiology Diagnoses Encounter for screening mammogram for breast cancer Procedures BI mammo bilateral screening tomosynthesis Ericka Villela MD [address] [facility], [address] [address] Phone: tel: fax: Referral ID Status Reason Start Date Expiration Date Visits Requested Visits Authorized [id number] Authorized Perform Procedure 12/28/2024 12/28/2025 1 1 [facility] Work Phone: reason for visit Narrative* Diagnostic Procedure Only (Routine) - Closed Specialty Diagnoses / Procedures Referred By Contac t Referred To Contact XR IMAGING Diagnoses Closed Colles' fracture of left radius, initial encounter Procedures XR WRIST GENERAL 3V PA/LAT/OBL LEFT RADEX WRIST COMPLETE MINIMUM 3 VIEWS Arnold Raza PA-C [address] [place] [address] Phone: tel: fax: [place] [address] Referral ID Status Reason Start Date Expiration Date V isits Requested Visits Authorized [id number] Closed Auto-Generate d Referral 02/12/2025 03/14/2026 1 1 [facility] for visit Narrative* Diagnostic Procedure Only (Routine) - Closed Specialty Diagnoses / Procedures Referred By Will t Referred To Contact XR IMAGING Diagnoses Closed Colles' fracture of left radius with routine healing, subsequent encounter Procedures XR WRIST GENERAL 3V PA/LAT/OBL LEFT RADEX WRIST COMPLETE MINIMUM 3 VIEWS Tomas Gramajo MD [address] [address] Phone: tel: fax: [place] [address] Referral ID Status Reason Start Date Expiration Date V isits Requested Visits Authorized [id number] Closed Auto-Generate d Referral 02/28/2025 03/30/2026 1 1 [facility] Family History No Family History Records Found Mother Name Dates Details Family history of lymphoma(V 16.7, Z80.7) Status:Active Family history of coronary a rtery disease(V17.3, Z82.49) Status:Active Family history of diabetes m ellitus(V18.0, Z83.3) Status:Active Father Name Dates Details Family history of coronary a rtery disease(V17.3, Z82.49) Status:Active Family history of diabetes m ellitus(V18.0, Z83.3) Status:Active Mother Name Dates Details Family history of lymphoma(V 16.7, Z80.7) Status:Active Family history of coronary a rtery disease(V17.3, Z82.49) Status:Active Family history of diabetes m ellitus(V18.0, Z83.3) Status:Active Father Name Dates Details Family history of coronary a rtery disease(V17.3, Z82.49) Status:Active Family history of diabetes m ellitus(V18.0, Z83.3) Status:Active Mother Name Dates Details Family history of lymphoma(V 16.7, Z80.7) Status:Active Family history of coronary a rtery disease(V17.3, Z82.49) Status:Active Family history of diabetes m ellitus(V18.0, Z83.3) Status:Active Father Name Dates Details Family history of coronary a rtery disease(V17.3, Z82.49) Status:Active Family history of diabetes m ellitus(V18.0, Z83.3) Status:Active Mother Name Dates Details Family history of lymphoma(V 16.7, Z80.7) Status:Active Family history of coronary a rtery disease(V17.3, Z82.49) Status:Active Family history of diabetes m ellitus(V18.0, Z83.3) Status:Active Father Name Dates Details Family history of coronary a rtery disease(V17.3, Z82.49) Status:Active Family history of diabetes m ellitus(V18.0, Z83.3) Status:Active Mother Name Dates Details Family history of lymphoma(V 16.7, Z80.7) Status:Active Family history of coronary a rtery disease(V17.3, Z82.49) Status:Active Family history of diabetes m ellitus(V18.0, Z83.3) Status:Active Father Name Dates Details Family history of coronary a rtery disease(V17.3, Z82.49) Status:Active Family history of diabetes m ellitus(V18.0, Z83.3) Status:Active Mother Name Dates Details Family history of lymphoma(V 16.7, Z80.7) Status:Active Family history of coronary a rtery disease(V17.3, Z82.49) Status:Active Family history of diabetes m ellitus(V18.0, Z83.3) Status:Active Father Name Dates Details Family history of coronary a rtery disease(V17.3, Z82.49) Status:Active Family history of diabetes m ellitus(V18.0, Z83.3) Status:Active Mother Name Dates Details Family history of lymphoma(V 16.7, Z80.7) Status:Active Family history of coronary a rtery disease(V17.3, Z82.49) Status:Active Family history of diabetes m ellitus(V18.0, Z83.3) Status:Active Father Name Dates Details Family history of coronary a rtery disease(V17.3, Z82.49) Status:Active Family history of diabetes m ellitus(V18.0, Z83.3) Status:Active Mother Name Dates Details Family history of lymphoma(V 16.7, Z80.7) Status:Active Family history of coronary a rtery disease(V17.3, Z82.49) Status:Active Family history of diabetes m ellitus(V18.0, Z83.3) Status:Active Father Name Dates Details Family history of coronary a rtery disease(V17.3, Z82.49) Status:Active Family history of diabetes m ellitus(V18.0, Z83.3) Status:Active Mother Name Dates Details Family history of lymphoma(V 16.7, Z80.7) Status:Active Family history of coronary a rtery disease(V17.3, Z82.49) Status:Active Family history of diabetes m ellitus(V18.0, Z83.3) Status:Active Father Name Dates Details Family history of coronary a rtery disease(V17.3, Z82.49) Status:Active Family history of diabetes m ellitus(V18.0, Z83.3) Status:Active Mother Name Dates Details Family history of lymphoma(V 16.7, Z80.7) Status:Active Family history of coronary a rtery disease(V17.3, Z82.49) Status:Active Family history of diabetes m ellitus(V18.0, Z83.3) Status:Active Father Name Dates Details Family history of coronary a rtery disease(V17.3, Z82.49) Status:Active Family history of diabetes m ellitus(V18.0, Z83.3) Status:Active Mother Name Dates Details Family history of lymphoma(V 16.7, Z80.7) Status:Active Family history of coronary a rtery disease(V17.3, Z82.49) Status:Active Family history of diabetes m ellitus(V18.0, Z83.3) Status:Active Father Name Dates Details Family history of coronary a rtery disease(V17.3, Z82.49) Status:Active Family history of diabetes m ellitus(V18.0, Z83.3) Status:Active Mother Name Dates Details Family history of lymphoma(V 16.7, Z80.7) Status:Active Family history of coronary a rtery disease(V17.3, Z82.49) Status:Active Family history of diabetes m ellitus(V18.0, Z83.3) Status:Active Father Name Dates Details Family history of coronary a rtery disease(V17.3, Z82.49) Status:Active Family history of diabetes m ellitus(V18.0, Z83.3) Status:Active Mother Name Dates Details Family history of lymphoma(V 16.7, Z80.7) Status:Active Family history of coronary a rtery disease(V17.3, Z82.49) Status:Active Family history of diabetes m ellitus(V18.0, Z83.3) Status:Active Father Name Dates Details Family history of coronary a rtery disease(V17.3, Z82.49) Status:Active Family history of diabetes m ellitus(V18.0, Z83.3) Status:Active Mother Name Dates Details Family history of lymphoma(V 16.7, Z80.7) Status:Active Family history of coronary a rtery disease(V17.3, Z82.49) Status:Active Family history of diabetes m ellitus(V18.0, Z83.3) Status:Active Father Name Dates Details Family history of coronary a rtery disease(V17.3, Z82.49) Status:Active Family history of diabetes m ellitus(V18.0, Z83.3) Status:Active Mother Name Dates Details Family history of lymphoma(V 16.7, Z80.7) Status:Active Family history of coronary a rtery disease(V17.3, Z82.49) Status:Active Family history of diabetes m ellitus(V18.0, Z83.3) Status:Active Father Name Dates Details Family history of coronary a rtery disease(V17.3, Z82.49) Status:Active Family history of diabetes m ellitus(V18.0, Z83.3) Status:Active Mother Name Dates Details Family history of lymphoma(V 16.7, Z80.7) Status:Active Family history of coronary a rtery disease(V17.3, Z82.49) Status:Active Family history of diabetes m ellitus(V18.0, Z83.3) Status:Active Father Name Dates Details Family history of coronary a rtery disease(V17.3, Z82.49) Status:Active Family history of diabetes m ellitus(V18.0, Z83.3) Status:Active Mother Name Dates Details Family history of lymphoma(V 16.7, Z80.7) Status:Active Family history of coronary a rtery disease(V17.3, Z82.49) Status:Active Family history of diabetes m ellitus(V18.0, Z83.3) Status:Active Father Name Dates Details Family history of coronary a rtery disease(V17.3, Z82.49) Status:Active Family history of diabetes m ellitus(V18.0, Z83.3) Status:Active Mother Name Dates Details Family history of lymphoma(V 16.7, Z80.7) Status:Active Family history of coronary a rtery disease(V17.3, Z82.49) Status:Active Family history of diabetes m ellitus(V18.0, Z83.3) Status:Active Father Name Dates Details Family history of coronary a rtery disease(V17.3, Z82.49) Status:Active Family history of diabetes m ellitus(V18.0, Z83.3) Status:Active Mother Name Dates Details Family history of lymphoma(V 16.7, Z80.7) Status:Active Family history of coronary a rtery disease(V17.3, Z82.49) Status:Active Family history of diabetes m ellitus(V18.0, Z83.3) Status:Active Father Name Dates Details Family history of coronary a rtery disease(V17.3, Z82.49) Status:Active Family history of diabetes m ellitus(V18.0, Z83.3) Status:Active Unknown Family Member Name Dates Details Family history of lymphoma: Mother(V16.7, Z80.7) Status:Active Family history of coronary a rtery disease: Mother, Father(V17.3, Z82.49) Status:Active Family history of diabetes m ellitus: Mother, Father(V18.0, Z83.3) Status:Active Unknown Family Member Name Dates Details Family history of lymphoma: Mother(V16.7, Z80.7) Status:Active Family history of coronary a rtery disease: Mother, Father(V17.3, Z82.49) Status:Active Family history of diabetes m ellitus: Mother, Father(V18.0, Z83.3) Status:Active Unknown Family Member Name Dates Details Family history of lymphoma: Mother(V16.7, Z80.7) Status:Active Family history of coronary a rtery disease: Mother, Father(V17.3, Z82.49) Status:Active Family history of diabetes m ellitus: Mother, Father(V18.0, Z83.3) Status:Active Unknown Family Member Name Dates Details Family history of lymphoma: Mother(V16.7, Z80.7) Status:Active Family history of coronary a rtery disease: Mother, Father(V17.3, Z82.49) Status:Active Family history of diabetes m ellitus: Mother, Father(V18.0, Z83.3) Status:Active Unknown Family Member Name Dates Details Family history of lymphoma: Mother(V16.7, Z80.7) Status:Active Family history of coronary a rtery disease: Mother, Father(V17.3, Z82.49) Status:Active Family history of diabetes m ellitus: Mother, Father(V18.0, Z83.3) Status:Active Unknown Family Member Name Dates Details Family history of lymphoma: Mother(V16.7, Z80.7) Status:Active Family history of coronary a rtery disease: Mother, Father(V17.3, Z82.49) Status:Active Family history of diabetes m ellitus: Mother, Father(V18.0, Z83.3) Status:Active Unknown Family Member Name Dates Details Family history of lymphoma: Mother(V16.7, Z80.7) Status:Active Family history of coronary a rtery disease: Mother, Father(V17.3, Z82.49) Status:Active Family history of diabetes m ellitus: Mother, Father(V18.0, Z83.3) Status:Active Unknown Family Member Name Dates Details Family history of lymphoma: Mother(V16.7, Z80.7) Status:Active Family history of coronary a rtery disease: Mother, Father(V17.3, Z82.49) Status:Active Family history of diabetes m ellitus: Mother, Father(V18.0, Z83.3) Status:Active Unknown Family Member Name Dates Details Family history of lymphoma: Mother(V16.7, Z80.7) Status:Active Family history of coronary a rtery disease: Mother, Father(V17.3, Z82.49) Status:Active Family history of diabetes m ellitus: Mother, Father(V18.0, Z83.3) Status:Active Unknown Family Member Name Dates Details Family history of lymphoma: Mother(V16.7, Z80.7) Status:Active Family history of coronary a rtery disease: Mother, Father(V17.3, Z82.49) Status:Active Family history of diabetes m ellitus: Mother, Father(V18.0, Z83.3) Status:Active Unknown Family Member Name Dates Details Family history of lymphoma: Mother(V16.7, Z80.7) Status:Active Family history of coronary a rtery disease: Mother, Father(V17.3, Z82.49) Status:Active Family history of diabetes m ellitus: Mother, Father(V18.0, Z83.3) Status:Active Unknown Family Member Name Dates Details Family history of lymphoma: Mother(V16.7, Z80.7) Status:Active Family history of coronary a rtery disease: Mother, Father(V17.3, Z82.49) Status:Active Family history of diabetes m ellitus: Mother, Father(V18.0, Z83.3) Status:Active Unknown Family Member Name Dates Details Family history of diabetes m ellitus: Mother, Father(V18.0, Z83.3) Status:Active Family history of coronary a rtery disease: Mother, Father(V17.3, Z82.49) Status:Active Family history of lymphoma: Mother(V16.7, Z80.7) Status:Active Unknown Family Member Name Dates Details Family history of lymphoma: Mother(V16.7, Z80.7) Status:Active Family history of coronary a rtery disease: Mother, Father(V17.3, Z82.49) Status:Active Family history of diabetes m ellitus: Mother, Father(V18.0, Z83.3) Status:Active Unknown Family Member Name Dates Details Family history of lymphoma: Mother(V16.7, Z80.7) Status:Active Family history of coronary a rtery disease: Mother, Father(V17.3, Z82.49) Status:Active Family history of diabetes m ellitus: Mother, Father(V18.0, Z83.3) Status:Active Unknown Family Member Name Dates Details Family history of lymphoma: Mother(V16.7, Z80.7) Status:Active Family history of coronary a rtery disease: Mother, Father(V17.3, Z82.49) Status:Active Family history of diabetes m ellitus: Mother, Father(V18.0, Z83.3) Status:Active Unknown Family Member Name Dates Details Family history of lymphoma: Mother(V16.7, Z80.7) Status:Active Family history of coronary a rtery disease: Mother, Father(V17.3, Z82.49) Status:Active Family history of diabetes m ellitus: Mother, Father(V18.0, Z83.3) Status:Active Unknown Family Member Name Dates Details Family history of lymphoma: Mother(V16.7, Z80.7) Status:Active Family history of coronary a rtery disease: Mother, Father(V17.3, Z82.49) Status:Active Family history of diabetes m ellitus: Mother, Father(V18.0, Z83.3) Status:Active Unknown Family Member Name Dates Details Family history of lymphoma: Mother(V16.7, Z80.7) Status:Active Family history of coronary a rtery disease: Mother, Father(V17.3, Z82.49) Status:Active Family history of diabetes m ellitus: Mother, Father(V18.0, Z83.3) Status:Active Unknown Family Member Name Dates Details Family history of lymphoma: Mother(V16.7, Z80.7) Status:Active Family history of coronary a rtery disease: Mother, Father(V17.3, Z82.49) Status:Active Family history of diabetes m ellitus: Mother, Father(V18.0, Z83.3) Status:Active Unknown Family Member Name Dates Details Family history of lymphoma: Mother(V16.7, Z80.7) Status:Active Family history of coronary a rtery disease: Mother, Father(V17.3, Z82.49) Status:Active Family history of diabetes m ellitus: Mother, Father(V18.0, Z83.3) Status:Active Unknown Family Member Name Dates Details Family history of lymphoma: Mother(V16.7, Z80.7) Status:Active Family history of coronary a rtery disease: Mother, Father(V17.3, Z82.49) Status:Active Family history of diabetes m ellitus: Mother, Father(V18.0, Z83.3) Status:Active Unknown Family Member Name Dates Details Family history of diabetes m ellitus: Mother, Father(V18.0, Z83.3) Status:Active Family history of coronary a rtery disease: Mother, Father(V17.3, Z82.49) Status:Active Family history of lymphoma: Mother(V16.7, Z80.7) Status:Active Unknown Family Member Name Dates Details Family history of lymphoma: Mother(V16.7, Z80.7) Status:Active Family history of coronary a rtery disease: Mother, Father(V17.3, Z82.49) Status:Active Family history of diabetes m ellitus: Mother, Father(V18.0, Z83.3) Status:Active Unknown Family Member Name Dates Details Family history of lymphoma: Mother(V16.7, Z80.7) Status:Active Family history of coronary a rtery disease: Mother, Father(V17.3, Z82.49) Status:Active Family history of diabetes m ellitus: Mother, Father(V18.0, Z83.3) Status:Active Unknown Family Member Name Dates Details Family history of lymphoma: Mother(V16.7, Z80.7) Status:Active Family history of coronary a rtery disease: Mother, Father(V17.3, Z82.49) Status:Active Family history of diabetes m ellitus: Mother, Father(V18.0, Z83.3) Status:Active Unknown Family Member Name Dates Details Family history of lymphoma: Mother(V16.7, Z80.7) Status:Active Family history of coronary a rtery disease: Mother, Father(V17.3, Z82.49) Status:Active Family history of diabetes m ellitus: Mother, Father(V18.0, Z83.3) Status:Active Unknown Family Member Name Dates Details Family history of lymphoma: Mother(V16.7, Z80.7) Status:Active Family history of coronary a rtery disease: Mother, Father(V17.3, Z82.49) Status:Active Family history of diabetes m ellitus: Mother, Father(V18.0, Z83.3) Status:Active Unknown Family Member Name Dates Details Family history of lymphoma: Mother(V16.7, Z80.7) Status:Active Family history of coronary a rtery disease: Mother, Father(V17.3, Z82.49) Status:Active Family history of diabetes m ellitus: Mother, Father(V18.0, Z83.3) Status:Active Unknown Family Member Name Dates Details Family history of lymphoma: Mother(V16.7, Z80.7) Status:Active Family history of coronary a rtery disease: Mother, Father(V17.3, Z82.49) Status:Active Family history of diabetes m ellitus: Mother, Father(V18.0, Z83.3) Status:Active Unknown Family Member Name Dates Details Family history of lymphoma: Mother(V16.7, Z80.7) Status:Active Family history of coronary a rtery disease: Mother, Father(V17.3, Z82.49) Status:Active Family history of diabetes m ellitus: Mother, Father(V18.0, Z83.3) Status:Active Unknown Family Member Name Dates Details Family history of lymphoma: Mother(V16.7, Z80.7) Status:Active Family history of coronary a rtery disease: Mother, Father(V17.3, Z82.49) Status:Active Family history of diabetes m ellitus: Mother, Father(V18.0, Z83.3) Status:Active Unknown Family Member Name Dates Details Family history of lymphoma: Mother(V16.7, Z80.7) Status:Active Family history of coronary a rtery disease: Mother, Father(V17.3, Z82.49) Status:Active Family history of diabetes m ellitus: Mother, Father(V18.0, Z83.3) Status:Active Unknown Family Member Name Dates Details Family history of lymphoma: Mother(V16.7, Z80.7) Status:Active Family history of coronary a rtery disease: Mother, Father(V17.3, Z82.49) Status:Active Family history of diabetes m ellitus: Mother, Father(V18.0, Z83.3) Status:Active Unknown Family Member Name Dates Details Family history of lymphoma: Mother(V16.7, Z80.7) Status:Active Family history of coronary a rtery disease: Mother, Father(V17.3, Z82.49) Status:Active Family history of diabetes m ellitus: Mother, Father(V18.0, Z83.3) Status:Active Unknown Family Member Name Dates Details Family history of lymphoma: Mother(V16.7, Z80.7) Status:Active Family history of coronary a rtery disease: Mother, Father(V17.3, Z82.49) Status:Active Family history of diabetes m ellitus: Mother, Father(V18.0, Z83.3) Status:Active Unknown Family Member Name Dates Details Family history of lymphoma: Mother(V16.7, Z80.7) Status:Active Family history of coronary a rtery disease: Mother, Father(V17.3, Z82.49) Status:Active Family history of diabetes m ellitus: Mother, Father(V18.0, Z83.3) Status:Active Unknown Family Member Name Dates Details Family history of lymphoma: Mother(V16.7, Z80.7) Status:Active Family history of coronary a rtery disease: Mother, Father(V17.3, Z82.49) Status:Active Family history of diabetes m ellitus: Mother, Father(V18.0, Z83.3) Status:Active Unknown Family Member Name Dates Details Family history of lymphoma: Mother(V16.7, Z80.7) Status:Active Family history of coronary a rtery disease: Mother, Father(V17.3, Z82.49) Status:Active Family history of diabetes m ellitus: Mother, Father(V18.0, Z83.3) Status:Active Unknown Family Member Name Dates Details Family history of lymphoma: Mother(V16.7, Z80.7) Status:Active Family history of coronary a rtery disease: Mother, Father(V17.3, Z82.49) Status:Active Family history of diabetes m ellitus: Mother, Father(V18.0, Z83.3) Status:Active Unknown Family Member Name Dates Details Family history of lymphoma: Mother(V16.7, Z80.7) Status:Active Family history of coronary a rtery disease: Mother, Father(V17.3, Z82.49) Status:Active Family history of diabetes m ellitus: Mother, Father(V18.0, Z83.3) Status:Active Unknown Family Member Name Dates Details Family history of lymphoma: Mother(V16.7, Z80.7) Status:Active Family history of coronary a rtery disease: Mother, Father(V17.3, Z82.49) Status:Active Family history of diabetes m ellitus: Mother, Father(V18.0, Z83.3) Status:Active Unknown Family Member Name Dates Details Family history of lymphoma: Mother(V16.7, Z80.7) Status:Active Family history of coronary a rtery disease: Mother, Father(V17.3, Z82.49) Status:Active Family history of diabetes m ellitus: Mother, Father(V18.0, Z83.3) Status:Active Unknown Family Member Name Dates Details Family history of lymphoma: Mother(V16.7, Z80.7) Status:Active Family history of coronary a rtery disease: Mother, Father(V17.3, Z82.49) Status:Active Family history of diabetes m ellitus: Mother, Father(V18.0, Z83.3) Status:Active Unknown Family Member Name Dates Details Family history of lymphoma: Mother(V16.7, Z80.7) Status:Active Family history of coronary a rtery disease: Mother, Father(V17.3, Z82.49) Status:Active Family history of diabetes m ellitus: Mother, Father(V18.0, Z83.3) Status:Active Unknown Family Member Name Dates Details Family history of lymphoma: Mother(V16.7, Z80.7) Status:Active Family history of coronary a rtery disease: Mother, Father(V17.3, Z82.49) Status:Active Family history of diabetes m ellitus: Mother, Father(V18.0, Z83.3) Status:Active Unknown Family Member Name Dates Details Family history of lymphoma: Mother(V16.7, Z80.7) Status:Active Family history of coronary a rtery disease: Mother, Father(V17.3, Z82.49) Status:Active Family history of diabetes m ellitus: Mother, Father(V18.0, Z83.3) Status:Active Unknown Family Member Name Dates Details Family history of lymphoma: Mother(V16.7, Z80.7) Status:Active Family history of coronary a rtery disease: Mother, Father(V17.3, Z82.49) Status:Active Family history of diabetes m ellitus: Mother, Father(V18.0, Z83.3) Status:Active Unknown Family Member Name Dates Details Family history of lymphoma: Mother(V16.7, Z80.7) Status:Active Family history of coronary a rtery disease: Mother, Father(V17.3, Z82.49) Status:Active Family history of diabetes m ellitus: Mother, Father(V18.0, Z83.3) Status:Active Unknown Family Member Name Dates Details Family history of lymphoma: Mother(V16.7, Z80.7) Status:Active Family history of coronary a rtery disease: Mother, Father(V17.3, Z82.49) Status:Active Family history of diabetes m ellitus: Mother, Father(V18.0, Z83.3) Status:Active Unknown Family Member Name Dates Details Family history of lymphoma: Mother(V16.7, Z80.7) Status:Active Family history of coronary a rtery disease: Mother, Father(V17.3, Z82.49) Status:Active Family history of diabetes m ellitus: Mother, Father(V18.0, Z83.3) Status:Active Unknown Family Member Name Dates Details Family history of lymphoma: Mother(V16.7, Z80.7) Status:Active Family history of coronary a rtery disease: Mother, Father(V17.3, Z82.49) Status:Active Family history of diabetes m ellitus: Mother, Father(V18.0, Z83.3) Status:Active Unknown Family Member Name Dates Details Family history of lymphoma: Mother(V16.7, Z80.7) Status:Active Family history of coronary a rtery disease: Mother, Father(V17.3, Z82.49) Status:Active Family history of diabetes m ellitus: Mother, Father(V18.0, Z83.3) Status:Active Unknown Family Member Name Dates Details Family history of lymphoma: Mother(V16.7, Z80.7) Status:Active Family history of coronary a rtery disease: Mother, Father(V17.3, Z82.49) Status:Active Family history of diabetes m ellitus: Mother, Father(V18.0, Z83.3) Status:Active Unknown Family Member Name Dates Details Family history of lymphoma: Mother(V16.7, Z80.7) Status:Active Family history of coronary a rtery disease: Mother, Father(V17.3, Z82.49) Status:Active Family history of diabetes m ellitus: Mother, Father(V18.0, Z83.3) Status:Active Unknown Family Member Name Dates Details Family history of lymphoma: Mother(V16.7, Z80.7) Status:Active Family history of coronary a rtery disease: Mother, Father(V17.3, Z82.49) Status:Active Family history of diabetes m ellitus: Mother, Father(V18.0, Z83.3) Status:Active Unknown Family Member Name Dates Details Family history of lymphoma: Mother(V16.7, Z80.7) Status:Active Family history of coronary a rtery disease: Mother, Father(V17.3, Z82.49) Status:Active Family history of diabetes m ellitus: Mother, Father(V18.0, Z83.3) Status:Active Unknown Family Member Name Dates Details Family history of lymphoma: Mother(V16.7, Z80.7) Status:Active Family history of coronary a rtery disease: Mother, Father(V17.3, Z82.49) Status:Active Family history of diabetes m ellitus: Mother, Father(V18.0, Z83.3) Status:Active Unknown Family Member Name Dates Details Family history of lymphoma: Mother(V16.7, Z80.7) Status:Active Family history of coronary a rtery disease: Mother, Father(V17.3, Z82.49) Status:Active Family history of diabetes m ellitus: Mother, Father(V18.0, Z83.3) Status:Active Unknown Family Member Name Dates Details Family history of lymphoma: Mother(V16.7, Z80.7) Status:Active Family history of coronary a rtery disease: Mother, Father(V17.3, Z82.49) Status:Active Family history of diabetes m ellitus: Mother, Father(V18.0, Z83.3) Status:Active Unknown Family Member Name Dates Details Family history of lymphoma: Mother(V16.7, Z80.7) Status:Active Family history of coronary a rtery disease: Mother, Father(V17.3, Z82.49) Status:Active Family history of diabetes m ellitus: Mother, Father(V18.0, Z83.3) Status:Active Unknown Family Member Name Dates Details Family history of lymphoma: Mother(V16.7, Z80.7) Status:Active Family history of coronary a rtery disease: Mother, Father(V17.3, Z82.49) Status:Active Family history of diabetes m ellitus: Mother, Father(V18.0, Z83.3) Status:Active Unknown Family Member Name Dates Details Family history of lymphoma: Mother(V16.7, Z80.7) Status:Active Family history of coronary a rtery disease: Mother, Father(V17.3, Z82.49) Status:Active Family history of diabetes m ellitus: Mother, Father(V18.0, Z83.3) Status:Active Unknown Family Member Name Dates Details Family history of lymphoma: Mother(V16.7, Z80.7) Status:Active Family history of coronary a rtery disease: Mother, Father(V17.3, Z82.49) Status:Active Family history of diabetes m ellitus: Mother, Father(V18.0, Z83.3) Status:Active Unknown Family Member Name Dates Details Family history of lymphoma: Mother(V16.7, Z80.7) Status:Active Family history of coronary a rtery disease: Mother, Father(V17.3, Z82.49) Status:Active Family history of diabetes m ellitus: Mother, Father(V18.0, Z83.3) Status:Active Chief Complaint Chief Complaint Description Start Date right elbow pain Preliminary chief co mplaint data, not yet signed by the author as of Instructions Instruction Description Start Date Patient advised to follow-up with Primary Care Physician for BMI management. 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 12/30/2023 3:07 PM Date Activated Date Inactivated Comments 12/30/2023 4:37 PM Question Answer Comments Plan of Care: Code Status Discussion Completed Decision Maker: Patient Latest Code Status on File Code Status Date Activated Date Inactivated Comments Full Code 12/30/2023 4:37 PM Question Answer Comments Plan of Care: Code Status Discussion Completed Decision Maker: Patient Latest Code Status on File Code Status Date Activated Date Inactivated Comments Full Code 12/30/2023 4:37 PM Question Answer Comments Plan of Care: Code Status Discussion Completed Decision Maker: Patient Documents on File Type Date Recorded 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 Installer Expl anateneida Living Will 12/30/2023 3:07 PM Latest Code Status on File Code Status Date Activated Date Inactivated Comments Full Code 12/30/2023 4:37 PM Question Answer Comments Plan of Care: Code Status Discussion Completed Decision Maker: Patient Date Activated Date Inactivated Comments 12/30/2023 4:37 PM Question Answer Comments Plan of Care: Code Status Discussion Completed Decision Maker: Patient Healthcare Agents on File Name Relationship Healthcare Agent Relationshi p Communication Ameena House Health Care Agent Ramone Estevez Alternate Health Care Agent Healthcare Agents on File Name Relationship Healthcare Agent Relationshi p Communication Ameena House Health Care Agent Ramone Estevez Alternate Health Care Agent Healthcare Agents on File Name Relationship Healthcare Agent Relationshi p Communication Ameena House Health Care Agent Ramone Estevez Alternate Health Care Agent Healthcare Agents on File Name Relationship Healthcare Agent Relationshi p Communication Ameena House Health Care Agent Ramone Estevez Alternate Health Care Agent Healthcare Agents on File Name Relationship Healthcare Agent Relationshi p Communication Ameena House Health Care Agent [id number] (Home) Ramone Estevez Alternate Health Care Agent Assessments There may be information available, but it has not been provided by the sender. Review of System There may be information available, but it has not been provided by the sender. History of Present Illness There may be information available, but it has not been provided by the sender. Summary Purpose Reason for Referral Specialty Diagnoses / Procedures Referred By Contac t Referred To Contact Diagnoses Vitamin B12 deficiency Ericka Villela MD [address] [facility], [facility] [address] [place] [address] Referral ID Status Reason Start Date Expiration Date V isits Requested Visits Authorized [id number] Authorized 02/24/2023 08/23/2023 1 1 Referral ID Status Reason Start Date Expiration Date V isits Requested Visits Authorized [id number] Pending Review 08/19/2023 08/18/2024 1 1 Specialty Diagnoses / Procedures Referred By Contact Referred To Contact Gastroenterology Diagnoses Pharyngoesophageal dysphagia Procedures EGD ID ESOPHAGOGASTRODUODENOSCOPY TRANSORAL DIAGNOSTIC ID EGD TRANSORAL BIOPSY SINGLE/[place] [id number] [place] [id number] Referral ID Status Reason Start Date Expiration Date V isits Requested Visits Authorized [id number] Pending Review 08/31/2023 08/30/2024 1 1 Specialty Diagnoses / Procedures Referred By Contac t Referred To Contact Radiology Diagnoses Hoarseness or changing voice Paresis of left vocal fold Procedures CT soft [place] [address] [place] [address] Referral ID Status Reason Start Date Expiration Date Visits Requested Visits Authorized [id number] Pending Review Perform Procedure 08/30/2024 1 1 Specialty Diagnoses / Procedures Referred By Contac t Referred To Contact Radiology Diagnoses Other dysphagia Hoarseness or changing voice Procedures FL modified barium swallow study Ericka Villela MD [address] [facility], [facility] [address] [place] [address] Referral ID Status Reason Start Date Expiration Date Visits Requested Visits Authorized [id number] Pending Review Perform Procedure 07/22/2023 01/18/2024 1 1 Referral ID Status Reason Start Date Expiration Date V isits Requested Visits Authorized [id number] Authorized 08/31/2023 08/30/2024 1 1 Referral ID Status Reason Start Date Expiration Date V isits Requested Visits Authorized [id number] Pending Review 10/28/2023 10/27/2024 1 1 Specialty Diagnoses / Procedures Referred By Contac t Referred To Contact Diagnoses B12 deficiency Ericka Villela MD [address] [facility], [address] [address] Referral ID Status Reason Start Date Expiration Date V isits Requested Visits Authorized [id number] Pending Review 12/30/2023 12/29/2024 1 1 Specialty Diagnoses / Procedures Referred By Contac t Referred To Contact Radiology Diagnoses Asymptomatic menopausal state Procedures XR DEXA bone density Ericka Villela MD [address] [facility], [address] [address] Referral ID Status Reason Start Date Expiration Date Visits Requested Visits Authorized [id number] Pending Review Perform Procedure 12/30/2023 12/29/2024 1 1 Specialty Diagnoses / Procedures Referred By Contac t Referred To Contact Radiology Diagnoses Screening mammogram for breast cancer Procedures BI mammo bilateral screening tomosynthesis Ericka Villela MD [address] [facility], [address] [address] Referral ID Status Reason Start Date Expiration Date Visits Requested Visits Authorized [id number] Authorized Perform Procedure 12/30/2023 12/29/2024 1 1 Specialty Diagnoses / Procedures Referred By Contac t Referred To Contact Radiology Diagnoses Age-related osteoporosis without current pathological fracture Procedures XR DEXA bone density Ericka Villela MD [address] [facility], [address] [address] Referral ID Status Reason Start Date Expiration Date Visits Requested Visits Authorized Authorized Perform Procedure 12/24/2022 06/22/2023 1 1 Specialty Diagnoses / Procedures Referred By Contac t Referred To Contact Sleep Medicine Diagnoses Other fatigue Procedures ID OFFICE/OUTPATIENT NEW HIGH MDM 60-74 MINUTES Ericka Villela MD [address] [facility], [address] [address] Referral ID Status Reason Start Date Expiration Date Visits Requested Visits Authorized [id number] Authorized Specialty Services Required 12/24/2022 06/22/2023 1 1 Additional Source Comments Reason for Visit (unrecogniz ed section and content) Reason For Visit Description New - 1st visit with practice Preliminary reason f or visit data, not yet signed by the author as of right elbow pain Reason Comments Diarrhea Specialty Diagnoses / Procedures Referred By Wlil t Referred To Contact Diagnoses Vitamin B12 deficiency Ericka Villela MD [address] [facility], [address] [address] Referral ID Status Reason Start Date Expiration Date V isits Requested Visits Authorized [id number] Authorized 02/24/2023 08/23/2023 1 1 Referral ID Status Reason Start Date Expiration Date V isits Requested Visits Authorized [id number] Pending Review 08/19/2023 08/18/2024 1 1 Reason Comments Hoarseness Specialty Diagnoses / Procedures Referred By Will t Referred To Contact Radiology Diagnoses Other dysphagia Hoarseness or changing voice Procedures FL modified barium swallow study Ericka Villela MD [address] [facility], [address] [address] Referral ID Status Reason Start Date Expiration Date Visits Requested Visits Authorized [id number] Pending Review Perform Procedure 07/22/2023 01/18/2024 1 1 Reason Comments minor surgery in office Restylane inject ion. Specialty Diagnoses / Procedures Referred By Contact Referred To Contact Gastroenterology Diagnoses Pharyngoesophageal dysphagia Procedures EGD ID ESOPHAGOGASTRODUODENOSCOPY TRANSORAL DIAGNOSTIC ID EGD TRANSORAL BIOPSY SINGLE/[place] [address] [place] [address] Referral ID Status Reason Start Date Expiration Date V isits Requested Visits Authorized [id number] Authorized 08/31/2023 08/30/2024 1 1 Referral ID Status Reason Start Date Expiration Date V isits Requested Visits Authorized [id number] Pending Review 10/28/2023 10/27/2024 1 1 Specialty Diagnoses / Procedures Referred By Contac t Referred To Contact Diagnoses Hoarseness of voice Hoarseness of voice [R49.0] Procedures ID LARYNGOSCOPY W/WO TRACHEOSCOPY W/MICRO/TELESCOPE ID GRAFTING OF AUTOLOGOUS FAT BY LIPO 25 CC OR LESS Microlaryngoscopy with fat injection, left vocal cord with right [place] [address] [place] [address] [facility] [address] [address] Referral ID Status Reason Start Date Expiration Date Visits Re quested Visits Authorized [id number] 1 1 Specialty Diagnoses / Procedures Referred By Contac t Referred To Contact Diagnoses B12 deficiency Ericka Villela MD [address] [address] Referral ID Status Reason Start Date Expiration Date V isits Requested Visits Authorized [id number] Pending Review 12/30/2023 12/29/2024 1 1 Specialty Diagnoses / Procedures Referred By Contac t Referred To Contact Radiology Diagnoses Screening mammogram for breast cancer Procedures BI mammo bilateral screening tomosynthesis Ericka Villela MD [address] [address] Referral ID Status Reason Start Date Expiration Date Visits Requested Visits Authorized [id number] Authorized Perform Procedure 12/30/2023 12/29/2024 1 1 Specialty Diagnoses / Procedures Referred By Contac t Referred To Contact Radiology Diagnoses Asymptomatic menopausal state Procedures XR DEXA bone density Ericka Villela MD [address] [facility] [address] [place] [address] Referral ID Status Reason Start Date Expiration Date Visits Requested Visits Authorized [id number] Pending Review Perform Procedure 12/30/2023 12/29/2024 1 1 Reason Comments Post-op Reason Comments Follow Up Knee Replacement Reason Comments Insurance Authorization Prior Auth Delay ed: Additional Info Needed- unsigned ov note Reason Comments Follow-up 6 month follow up vi sit. 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 Previous ACDF 8 years ago. Went to PCP due to right side neck pain and right side shoulder pain-referred here Reason Comments Follow-up Fall 2 weeks ago, fe ll on right side. PT is recommending that another xray be done due to hardware in neck.Has had 6 PT visits-feels tightness in right side of neck Reason Comments Follow Up Knee Pain Reason Comments Appointment Reason Comments Follow-up Posterior neck pain is better with PT and dry needeling Reason Comments Other Blister under cast Earache Ear pain RIGHT x 1 [place] Reason Comments Post Op Reason Comments OT EVAL Specialty Diagnoses / Procedures Referred By Will reno Referred To Contact OCCUPATIONAL THERAPY Diagnoses Closed Colles' fracture of left radius with routine healing, subsequent encounter Post-operative state Procedures CONSULT TO COLLATOR OPERATOR OCCUPATIONAL THERAPY EVAL HIGH COMPLEX 60 MINS Yehuda Kirk PA-C [address] [place] [address] Phone: tel: fax: [facility] [address] [place] [address] Phone: tel: fax: Referral ID Status Reason Start Date Expiration Date Visits Requested Visits Authorized [id number] Authorized Auto-Generat ed Referral 03/01/2025 10/17/2025 99 99 Reason Comments Established Patient Pain Fracture Reason Comments Urinary Problem Reason Comments OT Progress Note Specialty Diagnoses / Procedures Referred By Will reno Referred To Contact [facility] Diagnoses Post-operative state Procedures CONSULT TO COLLATOR OPERATOR OCCUPATIONAL THERAPY EVAL HIGH COMPLEX 60 MINS Yehuda Kirk PA-C [address] [place] [address] Phone: tel: fax: Cynthia Falcon, OT/L, OTD [address] [place] [address] Phone: tel: Referral ID Status Reason Start Date Expiration Date Visits Requested Visits Authorized [id number] Authorized Auto-Generat ed Referral 02/19/2025 10/17/2025 99 99 Reason Comments Established Patient Follow Up Fracture CAST Reason Comments Post Op Pain Fracture Reason Comments Follow-up Mononeuritis multipl ex Ordered Prescriptions (unrec ognized section and content) Prescription Sig Dispensed Refills Start Date End Da te dicyclomine (BENTYL) 10 MG capsule Take 1 capsule by mouth 4 times daily as needed (cramping diarrhea) 10 capsule 0 07/24/2021 Scheduled Active and Recently Administ ered Medications (unrecognized section and content) Medication Order 07/22/2021 07/23/2021 07/24/2021 diphenoxylate-atropine (LOMOTIL) 2.5-0.025 MG per tablet 1 tablet (COMPLETED) 1 tablet, Oral, ONCE, On Maria Fernanda 07/24/21 at 1134, For 1 dose 1143 (Given - Provid er: Tawanna Mckeon RN) lactated ringers bolus (COMPLETED) 1,000 mL, IntraVENous, at 2,000 mL/hr, Administer over 0.5 Hours, ONCE, On Maria Fernanda 07/24/21 at 1132, For 1 dose 1143 (New Bag - Prov ider: Tawanna Mckeon RN)1243 (Stopped - Provider: Celso Castellon RN) Continuous Medication Order 12/18/2023 12/19/2023 12/20/2023 lactated Ringer's infusion (CANCELED) 100 mL/hr, intravenous, Continuous, Starting on Wed12/20/23 at 1015, Recovery (only) 1000 (New Bag - Prov ider: Lidya Khalil RN)1206 (Continued from OR - Provider: Milagro Brown RN)1247 (Due: Stopped) PRN Medication Order 12/18/2023 12/19/202312/20/2023 lidocaine-epinephrine (Xylocaine W/EPI) 1 %-1:100,000 injection (CANCELED) As needed, Starting on Wed12/20/23 at 1138, Intraprocedure 1138 (Given - Provid er: Hannah Elizabeth MD - Comment: right thigh) sodium chloride 0.9 % irrigation solution (CANCELED) As needed, Starting on Wed12/20/23 at 1139, Intraprocedure 1139 (Given - Provid er: Hannah Elizabeth MD) INFORMATION SOURCE (unrecogn ized section and content) DATE CREATED AUTHOR 08/09/2021 [facility] DATE CREATED AUTHOR AUTHOR'S ORGANIZ ATION 01/21/2022 [facility] DATE CREATED AUTHOR AUTHOR'S ORGANIZ ATION 06/30/2023 [facility] DATE CREATED AUTHOR AUTHOR'S ORGANIZ ATION 07/01/2023 [facility] DATE CREATED AUTHOR AUTHOR'S ORGANIZ ATION 08/07/2023 [facility] DATE CREATED AUTHOR AUTHOR'S ORGANIZ ATION 03/14/2025 [facility] DATE CREATED AUTHOR AUTHOR'S ORGANIZ ATION 03/15/2025 [facility] DATE CREATED AUTHOR AUTHOR'S ORGANIZ ATION 03/16/2025 [facility] DATE CREATED AUTHOR AUTHOR'S ORGANIZ ATION 03/23/2025 [facility] DATE CREATED AUTHOR AUTHOR'S ORGANIZ ATION 03/29/2025 [facility] DATE CREATED AUTHOR AUTHOR'S ORGANIZ ATION 04/02/2025 [facility] DATE CREATED AUTHOR AUTHOR'S ORGANIZ ATION 04/11/2025 [facility] Care Teams (unrecognized sec tion and content) Warehouse Distribution Specialist Relationship Specialty Start Date End Date Ericka Villela MD [address] [facility] [place] [address] PCP - General 02/15/06 Ericka Villela MD [address] [facility], [address] [place] [address] PCP - [employer] Medicare Advantage PCP 10/18/21 Warehouse Distribution Specialist Relationship Specialty Start Date End Date Ericka Villela MD [address] [facility], [address] [place] [address] PCP - General 02/15/06 Ericka Villela MD [address] [facility], [address] [place] [address] PCP - [employer] Medicare Advantage PCP 10/18/21 Warehouse Distribution Specialist Relationship Specialty Start Date End Date Ericka Villela MD [address] [facility], [address] [place] [address] PCP - General 02/15/06 Ericka Villela MD [address] [facility], [address] [place] [address] PCP - [employer] Medicare Advantage PCP 10/18/21 Warehouse Distribution Specialist Relationship Specialty Start Date End Date Ericka Villela MD [address] [facility], [address] [place] [address] PCP - General 02/15/06 Ericka Villela MD [address] [facility], [address] [place] [address] PCP - [employer] Medicare Advantage PCP 10/18/21 Warehouse Distribution Specialist Relationship Specialty Start Date End Date Ericka Villela MD [address] [facility], [address] [place] [address] PCP - General 02/15/06 Ericka Villela MD [address] [facility], [address] [place] [address] PCP - [employer] Medicare Advantage PCP 10/18/21 Warehouse Distribution Specialist Relationship Specialty Start Date End Date Ericka Villela MD [address] [facility], [address] [place] [address] PCP - General 02/15/06 Ericka Villela MD [address] [facility], [address] [place] [address] PCP - [employer] Medicare Advantage PCP 10/18/21 Warehouse Distribution Specialist Relationship Specialty Start Date End Date Ericka Villela MD [address] [facility], [address] [place] [address] PCP - General 02/15/06 Ericka Villela MD [address] [facility], [address] [place] [address] PCP - [employer] Medicare Advantage PCP 10/18/21 Warehouse Distribution Specialist Relationship Specialty Start Date End Date Ericka Villela MD [address] [facility], [address] [place] [address] PCP - General 02/15/06 Ericka Villela MD [address] [facility], [address] [place] [address] PCP - [employer] Medicare Advantage PCP 10/18/21 Warehouse Distribution Specialist Relationship Specialty Start Date End Date Ericka Villela MD [address] [facility], [address] [place] [address] PCP - General 02/15/06 Ericka Villela MD [address] [facility], [address] [place] [address] [place] [address] PCP - [employer] Medicare Advantage PCP 10/18/21 Warehouse Distribution Specialist Relationship Specialty Start Date End Date Ericka Villela MD [address] [facility], [address] [place] [address] PCP - General 02/15/06 Ericka Villela MD [address] [facility], [address] [place] [address] [place] [address] PCP - [employer] Medicare Advantage PCP 10/18/21 Warehouse Distribution Specialist Relationship Specialty Start Date End Date Ericka Villela MD [address] [facility], [address] [place] [address] PCP - General 02/15/06 Ericka Villela MD [address] [facility], [address] [place] [address] PCP - [employer] Medicare Advantage PCP 10/18/21 Warehouse Distribution Specialist Relationship Specialty Start Date End Date Ericka Villela MD [address] [facility], [address] [place] [address] PCP - General 02/15/06 Ericka Villela MD [address] [facility], [address] [place] [address] PCP - A[employer] Medicare Advantage PCP 10/18/21 Warehouse Distribution Specialist Relationship Specialty Start Date End Date Ericka Villela MD [address] [facility], [address] [place] [address] PCP - General 02/15/06 Ericka Villela MD [address] [facility], [address] [place] [address] PCP - A[employer] Medicare Advantage PCP 10/18/21 Warehouse Distribution Specialist Relationship Specialty Start Date End Date Ericka Villela MD PCP - General Internal Medicine 11/09/13 Warehouse Distribution Specialist Relationship Specialty Start Date End Date Ericka Villela MD PCP - General Internal Medicine 11/09/13 Warehouse Distribution Specialist Relationship Specialty Start Date End Date Ericka Villela MD PCP - General Internal Medicine 11/09/13 Warehouse Distribution Specialist Relationship Specialty Start Date End Date Ericka Villela MD [address] [facility], [address] [place] [address] PCP - General 02/15/06 Ericka Villela MD [address] [facility], [address] [place] [address] PCP - A[employer] Medicare Advantage PCP 10/18/21 Warehouse Distribution Specialist Relationship Specialty Start Date End Date Ericka Villela MD [address] [facility], [address] [place] [address] PCP - General 02/15/06 Ericka Villela MD [address] [facility], [address] [place] [address] PCP - A[employer] Medicare Advantage PCP 10/18/21 Warehouse Distribution Specialist Relationship Specialty Start Date End Date Ericka Villela MD [address] [facility], [address] [place] [address] PCP - General 02/15/06 Ericka Villela MD [address] [facility], [address] [place] [address] PCP - A[employer] Medicare Advantage PCP 10/18/21 Warehouse Distribution Specialist Relationship Specialty Start Date End Date Ericka Villela MD [address] [facility], [address] [place] [address] PCP - General 02/15/06 Ericka Villela MD [address] [facility], [address] [place] [address] PCP - [employer] Medicare Advantage PCP 10/18/21 Warehouse Distribution Specialist Relationship Specialty Start Date End Date Ericka Villela MD [address] [facility], [address] [place] [address] PCP - General 02/15/06 Ericka Villela MD [address] [facility], [address] [place] [address] PCP - A[employer] Medicare Advantage PCP 10/18/21 Warehouse Distribution Specialist Relationship Specialty Start Date End Date Ericka Villela MD [address] [facility], [facility] [address] [place] [address] PCP - General 02/15/06 Ericka Villela MD [address] [facility], [facility] [address] [place] [address] PCP - Aet[employer] Medicare Advantage PCP 10/18/21 Warehouse Distribution Specialist Relationship Specialty Start Date End Date Ericka Villela MD [address] [facility], [address] [address] PCP - General 02/15/06 Ericka Villela MD [address] [facility], [address] [place] [address] PCP - Aet[employer] Medicare Advantage PCP 10/18/21 Warehouse Distribution Specialist Relationship Specialty Start Date End Date Ericka Villela MD [address] [facility], [address] [place] [address] PCP - General 02/15/06 Ericka Villela MD [address] [facility], [address] [place] [address] PCP - A[employer] Medicare Advantage PCP 10/18/21 Warehouse Distribution Specialist Relationship Specialty Start Date End Date Ericka Villela MD [address] [facility], [address] [place] [address] PCP - General 02/15/06 Ericka Villela MD [address] [facility], [address] [place] [address] PCP - A[employer] Medicare Advantage PCP 10/18/21 Warehouse Distribution Specialist Relationship Specialty Start Date End Date Ericka Villela MD [address] [facility], [facility] [address] [place] [address] PCP - General 02/15/06 Ericka Villela MD [address] [facility], [facility] [address] [place] [address] PCP - A[employer] Medicare Advantage PCP 10/18/21 Sy Alvarado MD [address] [facility] [address] [place] [address] Referring Physician Gastroenterology 12/11/24 Marilee Wiseman MD [address] [place] [address] Surgeon Physical Medicine and Rehabilitation 12/11/24 [place] [address] [address] Department [place] [address] Consulting Physician Neurology 12/11/24 Bushra Li, OD [address]83 [facility] [place] [address] Referring Physician Optometry 12/11/24 [place] [address] [facility] [address] [place] [address] Referring Physician Endocrinology 12/11/24 [place] [address] [place] [address] Surgeon Otolaryngology 12/11/24 Warehouse Distribution Specialist Relationship Specialty Start Date End Date Ericka Villela MD [address] [facility], [address] [place] [address] PCP - General 02/15/06 Ericka Villela MD [address] [facility], [address] [place] [address] PCP - Aet Medicare Advantage PCP 10/18/21 Sy Alvarado MD [address] [place] [address] Referring Physician Gastroenterology 12/11/24 Marilee Wiseman MD [address] [place] [address] Surgeon Physical Medicine and Rehabilitation 12/11/24 [place] [address] [address] Department [place] [address] Consulting Physician Neurology 12/11/24 Bushra Li, OD 3583 [facility] [place] [address] Referring Physician Optometry 12/11/24 [place] [address] [facility] [address] [place] [address] Referring Physician Endocrinology 12/11/24 [place] [address] [address] [address] Surgeon Otolaryngology 12/11/24 Warehouse Distribution Specialist Relationship Specialty Start Date End Date Ericka Villela MD [address] [facility], [facility] [address] [place] [address] PCP - General 02/15/06 Ericka Villela MD [address] [facility], [address] [place] [address] PCP - Aet Medicare Advantage PCP 10/18/21 Sy Alvarado MD [address] [facility] [address] [place] [address] Referring Physician Gastroenterology 12/11/24 Marilee Wiseman MD [address] [place] [address] Surgeon Physical Medicine and Rehabilitation 12/11/24 [place] [address] [address] Department [place] [address] Consulting Physician Neurology 12/11/24 Bushra Li, OD 3583 [facility] [place] [address] Referring Physician Optometry 12/11/24 [place] [address] [facility] [address] [place] [address] Referring Physician Endocrinology 12/11/24 [place] [address] [place] [address] Surgeon Otolaryngology 12/11/24 Warehouse Distribution Specialist Relationship Specialty Start Date End Date Ericka Villela MD PCP - General Internal Medicine 11/09/13 Warehouse Distribution Specialist Relationship Specialty Start Date End Date Ericka Villela MD PCP - General Internal Medicine 11/09/13 Warehouse Distribution Specialist Relationship Specialty Start Date End Date Ericka Villela MD [address] [facility], [address] [place] [address] PCP - General 02/15/06 Ericka Villela MD [address] [facility], [address] [place] [address] PCP - A[employer] Medicare Advantage PCP 10/18/21 Sy Alvarado MD [address] [facility] [address] [place] [address] Referring Physician Gastroenterology 12/11/24 Marilee Wiseman MD [address] [facility] [address] [place] [address] Surgeon Physical Medicine and Rehabilitation 12/11/24 [place] [address] [address] Department [place] [address] Consulting Physician Neurology 12/11/24 Bushra Li, OD 3583 [facility] [place] [address] Referring Physician Optometry 12/11/24 [place] [address] [facility] [address] [place] [address] Referring Physician Endocrinology 12/11/24 [place] [address] [place] [address] Surgeon Otolaryngology 12/11/24 Warehouse Distribution Specialist Relationship Specialty Start Date End Date Ericka Villela MD PCP - General Internal Medicine 11/09/13 Warehouse Distribution Specialist Relationship Specialty Start Date End Date Ericka Villela MD PCP - General Internal Medicine 11/09/13 Warehouse Distribution Specialist Relationship Specialty Start Date End Date Ericka Villela MD [address] [facility], [facility] [address] [place] [address] PCP - General 02/15/06 Ericka Villela MD [address] [facility], [address] [place] [address] PCP - Aetna Medicare Advantage PCP 10/18/21 Sy Alvarado MD [address] [facility] [address] [place] [address] Referring Physician Gastroenterology 12/11/24 Marilee Wiseman MD [address] [place] [address] Surgeon Physical Medicine and Rehabilitation 12/11/24 [place] [address] [facility] Department [place] [address] Consulting Physician Neurology 12/11/24 Bushra Li, OD 3583 [facility] [place] [address] Referring Physician Optometry 12/11/24 [place] [address] [facility] [address] [place] [address] Referring Physician Endocrinology 12/11/24 [place] [address] [place] [address] Surgeon Otolaryngology 12/11/24 Warehouse Distribution Specialist Relationship Specialty Start Date End Date Ericka Villela MD PCP - General Internal Medicine 11/09/13 Warehouse Distribution Specialist Relationship Specialty Start Date End Date Ericka Villela MD PCP - General Internal Medicine 11/09/13 Warehouse Distribution Specialist Relationship Specialty Start Date End Date Ericka Villela MD [address] [facility], [address] [place] [address] PCP - General 02/15/06 Ericka Villela MD [address] [place] [facility], [address] [place] [address] PCP - A[employer] Medicare Advantage PCP 10/18/21 Sy Alvarado MD [address] [place] [address] Referring Physician Gastroenterology 12/11/24 Marilee Wiseman MD [address] [place] [address] Surgeon Physical Medicine and Rehabilitation 12/11/24 [place] [address] [facility] Department [place] [address] Consulting Physician Neurology 12/11/24 Bushra Li, OD [address] [facility] [place] [address] Referring Physician Optometry 12/11/24 [place] [address] [facility] [address] [place] [address] Referring Physician Endocrinology 12/11/24 [place] [address] [place] [address] Surgeon Otolaryngology 12/11/24 Warehouse Distribution Specialist Relationship Specialty Start Date End Date Ericka Villela MD PCP - General Internal Medicine 11/09/13 Warehouse Distribution Specialist Relationship Specialty Start Date End Date Ericka Villela MD PCP - General Internal Medicine 11/09/13 Warehouse Distribution Specialist Relationship Specialty Start Date End Date Ericka Villela MD PCP - General Internal Medicine 11/09/13 Warehouse Distribution Specialist Relationship Specialty Start Date End Date Ericka Villela MD PCP - General Internal Medicine 11/09/13 Warehouse Distribution Specialist Relationship Specialty Start Date End Date Ericka Villela MD [address] [facility], [facility] [address] [place] [address] PCP - General 02/15/06 Ericka Villela MD [address] [facility], [facility] [address] [place] [address] PCP - Aet Medicare Advantage PCP 10/18/21 Sy Alvarado MD [address] [facility] [address] [place] [address] Referring Physician Gastroenterology 12/11/24 Marilee Wiseman MD [address] [facility] [address] [place] [address] Surgeon Physical Medicine and Rehabilitation 12/11/24 [place] [address] [address] Department [place] [address] Consulting Physician Neurology 12/11/24 Bushra Li, OD 3583 [facility] [place] [address] Referring Physician Optometry 12/11/24 [place] [address] [facility] [address] [place] [address] Referring Physician Endocrinology 12/11/24 [place] [address] [place] [address] Surgeon Otolaryngology 12/11/24 Source Comments (unrecognize d section and content) In the event this informatio n is protected by the Federal Confidentiality of Alcohol and Drug Abuse Patient Records regulations: The Federal rules restrict any use of the information to criminally investigate or prosecute any alcohol or drug abuse patient.[facility] SystemIn the event this information is protected by the Federal Confidentiality of Alcohol and Drug Abuse Patient Records regulations: The Federal rules restrict any use of the information to criminally investigate or prosecute any alcohol or drug abuse patient.[facility] SystemIn the event this information is protected by the Federal Confidentiality of Alcohol and Drug Abuse Patient Records regulations: The Federal rules restrict any use of the information to criminally investigate or prosecute any alcohol or drug abuse patient.[facility] SystemIn the event this information is protected by the Federal Confidentiality of Alcohol and Drug Abuse Patient Records regulations: The Federal rules restrict any use of the information to criminally investigate or prosecute any alcohol or drug abuse patient.[facility] SystemIn the event this information is protected by the Federal Confidentiality of Alcohol and Drug Abuse Patient Records regulations: The Federal rules restrict any use of the information to criminally investigate or prosecute any alcohol or drug abuse patient.[facility] SystemIn the event this information is protected by the Federal Confidentiality of Alcohol and Drug Abuse Patient Records regulations: The Federal rules restrict any use of the information to criminally investigate or prosecute any alcohol or drug abuse patient.[facility] SystemIn the event this information is protected by the Federal Confidentiality of Alcohol and Drug Abuse Patient Records regulations: The Federal rules restrict any use of the information to criminally investigate or prosecute any alcohol or drug abuse patient.[facility] SystemIn the event this information is protected by the Federal Confidentiality of Alcohol and Drug Abuse Patient Records regulations: The Federal rules restrict any use of the information to criminally investigate or prosecute any alcohol or drug abuse patient.[facility] SystemIn the event this information is protected by the Federal Confidentiality of Alcohol and Drug Abuse Patient Records regulations: The Federal rules restrict any use of the information to criminally investigate or prosecute any alcohol or drug abuse patient.[facility] SystemIn the event this information is protected by the Federal Confidentiality of Alcohol and Drug Abuse Patient Records regulations: The Federal rules restrict any use of the information to criminally investigate or prosecute any alcohol or drug abuse patient.[facility] SystemIn the event this information is protected by the Federal Confidentiality of Alcohol and Drug Abuse Patient Records regulations: The Federal rules restrict any use of the information to criminally investigate or prosecute any alcohol or drug abuse patient.[facility] SystemIn the event this information is protected by the Federal Confidentiality of Alcohol and Drug Abuse Patient Records regulations: The Federal rules restrict any use of the information to criminally investigate or prosecute any alcohol or drug abuse patient.[facility] SystemIn the event this information is protected by the Federal Confidentiality of Alcohol and Drug Abuse Patient Records regulations: The Federal rules restrict any use of the information to criminally investigate or prosecute any alcohol or drug abuse patient.[facility] SystemIn the event this information is protected by the Federal Confidentiality of Alcohol and Drug Abuse Patient Records regulations: The Federal rules restrict any use of the information to criminally investigate or prosecute any alcohol or drug abuse patient.[facility] SystemIn the event this information is protected by the Federal Confidentiality of Alcohol and Drug Abuse Patient Records regulations: The Federal rules restrict any use of the information to criminally investigate or prosecute any alcohol or drug abuse patient.[facility] FOR RECORDS PERTAINING TO PATIENTS WHO ARE OR HAVE BEEN ENROLLED IN A CHEMICAL DEPENDENCY/SUBSTANCEABUSE PROGRAM, SOME INFORMATION MAY BE OMITTED. This clinical summary was aggregated from multiple sources. Caution should be exercised in using it in the provision of clinical care. This summary normalizes information from multiple sources, and as a consequence, information in this document may materially change the coding, format and clinical context of patient data. In addition, data may be omitted in some cases. CLINICAL DECISIONS SHOULD BE BASED ON THE PRIMARY CLINICAL RECORDS. [facility] provides no warranty or guarantee of the accuracy or completeness of information in this document.
--- OUTSIDE RECORDS SUMMARY | 2025-04-18 02:43 | XMS RPT_ITS | CCD ---
Author Organization [facility] CliniSynv Care Team Providers Care Rib Builder Name Role Phone Ericka Villela Unavailable Unavailable NURSE VISIT, IM ASSOC Unavailable Unavailabl e Katrodrigo, Bashar Unavailable Unavailable Lane, Ericka M Unavailable Unavailable Dave, Alex L Unavailable Unavailable Lane, Ericka Unavailable Unavailable Katrodrigo, Bashar Unavailable Unavailable Gomez, Ugo Unavailable Unavailable Malcolm Vargas Unavailable Unavailable Clemente, Charline Unavailable Unavailable Gomez, Ugo J Unavailable Unavailable Katirroxy, Bashar Unavailable Unavailable NURSE VISIT, IM ASSOC Unavailable Unavailabl e Clemente, Charline Unavailable Unavailable Timi FREEMAN, Rodríguez Madden Unavailable rEicka Villela MD Unavailable Unavailable Jovon Mckeon MD Unavailable Unavailable Clemente DO, Charline Unavailable Unavailable Lane, Ericka M Unavailable Unavailable Gomez, Ugo J Unavailable Unavailable Katirji, Bashar Unavailable Unavailable Dave, Alex L Unavailable Unavailable NURSE VISIT, IM ASSOC Unavailable Unavailabl e Lane, Ericka M Unavailable Unavailable Dave Alex L Unavailable Unavailable Lane, Ericka M Unavailable Unavailable Unavailable Ericka Villela MD Primary Care Provider [phone] Unavailable Unavailable Ericka Villela MD Primary Care Provider [phone] Ericka Villela MD Unavailable MD ERICKA VILLELA [...] Li OD Unavailable Ginger Corona MD Unavailable [phone] Hannah Elizabeth MD Unavailable Ericka Villela MD Unavailable [phone] MANOHAR, ERICKA M Primary Care Unavailable SAIMA SEO Attending Unavailable MANOHAR, ERICKA M Primary Care Unavailable CLAUDE THOMPSON Attending Unavailable MANOHAR, ERICKA M Primary Care [...] Azithromycin Drug Allergy 07-26-20 13 tongue swelling [facility] Work Phone: (1 source) Ibuprofen Drug Allergy 07-26-20 13 skin rash and difficulty breathing [facility] Work Phone: (2 sources) Adhesive Tape Propensity to adverse reactions to drug 05-11-20 13 Other (See Comments) [facility] Work Phone: (20 sources) Naproxen; Translations: [NAPROXEN SODIUM] Drug Allergy 03-09-20 13 Anaphylaxis, Rash [facility] Work Phone: (2 sources) NSAIDs Propensity to adverse reactions to drug 02-10-20 17 [facility] (20 sources) Naproxen; Translations: [NAPRELAN] Drug Allergy 11-11-19 23 Hives, Angioedema [facility] Work Phone: (20 sources) Non-steroidal anti-inflammator y agent; Translations: [NSAIDS (NON-STEROIDAL ANTI-INFLAMMATOR Y DRUG)] Drug Intolerance 02-10-20 17 Rash [facility] Work Phone: (20 sources) Other; Translations: [OTHER] Propensity to adverse reactions 05-11-20 13 Unknown [facility] Work Phone: (7 sources) Azithromycin; Translations: [AZITHROMYCIN] Drug Allergy 03-09-20 13 [facility] (7 sources) Ibuprofen; Translations: [IBUPROFEN] Drug Allergy 03-09-20 13 [facility] (18 sources) Adhesive Tape; Translations: [ADHESIVE TAPE (ROSINS)] Propensity to adverse reactions to substance 05-11-20 Other: See Comments [facility] Medications Current Medications Medication Drug Class(es) Dates [...] extended release oral tablet (16 sources) Uncompetitive G-nlcqlv-H-aspartate Receptor Antagonist, Sigma-1 Agonist End: 08-24-2024 take [...] g 11 12/30/2023 Active Start: 04-07-2019 Nystatin 62183 0 UNIT/GM External Powder APPLY SPARINGLY TO AFFECTED AREA(S) TWICE DAILY Quantity: 1 Refills: 3 Ordered: 29-Apr-2022 Ericka Villela MD Start : 07-Apr-2019 Active Start: 04-07-2019 nystatin (Myco statin) 100,000 unit/gram powder Apply topically in the morning and at bedtime. Apply sparingly to affected area(s) 0 04/07/2019 Active Start: 04-07-2019 Nystatin 26716 0 UNIT/GM External Powder APPLY SPARINGLY TO [...] DAILY 90 tablet 0 07/01/2023 Active Vit 41-Mtjo-VT-DSS ( AD) 90-1-50 mg Tab (15 sources) Vit 59-Oadh-DW-DSS ( AD) 90-1-50 mg Tab Take by [...] one tablet twice daily (3,000mg) CALCIUM CITRATE [id number] Rodríguez Capellan PA-C celecoxib 200 mg oral [...] TABS takes one tablet once daily CHOLECALCIFEROL [id number] Rodríguez Capellan PA-C Start: 07-06-2017 take 1 capsule by mo [facility] once daily Vitamin D 2000 UNIT Oral [...] MD Start : 24-Apr-2020 Active polymyxin b 51820 unt/ml / trimethoprim 1 mg/ml ophthalmic solution (20 sources) Dihydrofolate Reductase Inhibitor Antibacterial, Polymyxin-class Antibacterial Start: 04-27-2022 Polymyxin B-Trimethoprim 20319-1.1 UNIT/ML-% Ophthalmic Solution INSERT 1 (ONE) DROP [...] Ericka Villela MD Start : 26-Nov-2011 Active vit,idss05-tdnf-uluvx (PNV 29-1) 29 mg iron- 1 mg tablet (4 sources) Start: 03-29-2023 End: 07-22-2023 take 1 tablet by mouth once daily vit,wrsk45-ciis-ggjuw (PNV 29-1) 29 mg iron- 1 mg tablet Indications: S/P gastric surgery Take 1 tablet by mouth once daily. 90 tablet 0 03/29/2023 07/22/2023 Discontinued (Duplicate order) Start: 03-29-2023 take 1 tablet by víctor th once daily vit,utjh09-wcju-lzqis (PNV 29-1 ) 29 mg iron- 1 mg tablet Indications: S/P gastric surgery Take 1 tablet by mouth once daily. 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 - Vit 95-Jaow-ZJ-DSS ( AD) 90-1-50 mg Tab Take by [...] Status:Closed by YEHUDA KIRK on 03/27/[address] [facility] XR WRIST 3V PA/LAT/OBL LTon 03-27-2025 XR [...] the wrist. IMPRESSION: Healing distal radial fracture Fancy Packer: TATY Transcribe Date/Time: Mar 30 2025 8:33A Dictated by : MYRIAM CASTILLO MD This examination was interpreted and the report reviewed and electronically signed by: MYRIAM CASTILLO MD on Mar 30 2025 8:34AM EST [id number] [facility] CNTHERAPYon 03-13-2025 CNTHERAPY OT/PT/Speech Visit (LTOT) PORSHA HOUSE ([id number]) 1960 F CHT Date Time Provider Department 03/13/25 8:30 AM CYNTHIA FALCON LTOT Date Time Provider Department Center 03/13/2025 8:30 AM [id number], KRI*LTOT [facility] Reason for Visit: OT Progress Note [1595] Primary Visit Diagnosis:Pain and swelling of wrist, left [M25.532, M25.432] Other Visit Diagnoses:Post-operativ e state [Z98.890] Closed Colles' fracture of left radius with routine healing, subsequent encounter [N13.272Z] Allergies As of Date: 03/13/2025 Noted Allergy [...] mg by mouth once daily. - Vit 08-Xngu-OK-DSS ( AD) 90-1-50 mg Tab Take by mouth. Normal [facility] CULTURE, URINE, ROUTINEon CULTURE, URINE, ROUTINE SEE NOTE Abnormal [facility] Comment on above: Result Comment: CULTURE, URINE, ROUTINE Micro Number: [id number] Test Status: Final Specimen Source: Not given [...] Performed By: #### 3 95 #### [facility] [address], [address] [place] [phone] County Agricultural Agent: Jin Fields MD POCT UA Automated manually r esultedon 03-07-2025 Appearance (U) Clear Clear [facility] Work Phone: Glucose Test strip (U) [Mass/Vol] Negative NEGATIVE mg/dl [facility] Work Phone: Hemoglobin Ql (U) LARGE (3+) Abnormal NEGATIVE [facility] Work Phone: Interpretation and review of laboratory results Abnormal [facility] Work Phone: Leukocyte esterase Test strip Ql (U) LARGE (3+) Abnormal NEGATIVE [facility] Work Phone: Nitrite Ql (U) Negative NEGATIVE [facility] Work Phone: pH (U) 6.0 [pH] No Reference Range Established [facility] Work Phone: POC Bilirubin, Urine Negative NEGATIVE [facility] Work [facility]: POC Color, Urine Yellow Straw, Yellow, Light-Yellow [facility] Work Phone: POC Ketones, Urine Negative NEGATIVE mg/dl [facility] Work Phone: POC Protein, Urine 30 (1+) Abnormal NEGATIVE mg/dl [facility] Work Phone: POC Specific [place], Urine 1.025 1.005 - 1.035 [facility] Work Phone: POC Urobilinogen, Urine 0.2 0.2, 1.0 EU/DL [facility] Work Phone: [facility] Work Phone: [phone] 03-01-2025 [id number] HNO ID: [id number] Author: SABRINA XIONG OTR/L Service: ? Author Type: Occupational Therapist Type: [id number] Filed: 03/01/2025 13:32 Note Text: [facility] Occupational Therapy Plan of Care Certification Patient Name: Porsha House : 1960 [facility] #: [id number] Date: 03/01/2025 To: Tomas Gramajo, * From Therapist: TAMMI Guzman, [facility] RE: Patient Certification/ Recertification Your review, approval [...] Planned: 12 Planned Treatment Interventions: Therapeutic exercise (93073), Therapeutic activities (47143), Manual therapy (12881), Self-detention management (55858), Patient/Family/Caregive r Education, Custom orthosis fabrication, Orthotics management and training (43164,41105) PLAN FOR NEXT VISIT:Orthosis adjustments as needed. [...] the treatment plan for Porsha House, CC# [id number] for the period of 03/01/25 -- 05/30/25, established on 03/01/2025. Signature certifies the need for therapy services. Normal [facility] CNOVon 03-01-2025 CNOV Office Visit (AGPOB3 ) PORSHA HOUSE ([id number]) 1960 F [facility] Date Time Provider Department 03/01/25 11:15 AM [...] no signs of loosening or complication. Assessment/Plan: (M65.587P) Closed Colles' fracture of left radius with [...] Follow-up in 4 weeks with me in [place], x-rays Patient was also evaluated by Dr [...] [Z98.890] Order(s):XR WRIST GENERAL 3V PA/LAT/OBL LEFT [4166190] Order #: [id number] CONSULT TO RECOVERY OPERATOR HELPER [[id number]] Order #: [id number]: 1 FUTURE Prescriptions as of 03/01/2025 - [...] mg by mouth once daily. - Vit 32-Yiaq-WT-DSS ( AD) 90-1-50 mg Tab Take by [...] Health Care CNTHERAPYon 03-01-2025 CNTHERAPY OT/PT/Speech Visit ([facility]) PORSHA HOUSE ([id number]) 1960 F CHT Date Time Provider Department 03/01/25 11:15 AM SABRINA XIONG Date Time Provider Department Center 03/01/2025 11:15 AM [id number] XIONG [facility] Reason for Visit: OT EVAL [748] Primary [...] mg by mouth once daily. - Vit 36-Glnp-MI-DSS ( AD) 90-1-50 mg Tab Take by mouth. Surgical Services Tech: Therapy (PT/OT/Speech/Resp) ID: [id number] 03/01/2025 12:56 PM Author: SABRINA XIONG Signed by SABRINA XIONG OTR/L on 03/01/2025 at 12:56 PM Document text: Program_ID:[id number] Access Code: [email or web address] URL: [email or web address] Date: 03-01-2025 Prepared By: Sabrina Xiong Program [...] - CC Edema Swelling Control UE Normal [facility] THERAPY NTon 03-01-2025 THERAPY NT HNO ID: [id number] Author: SABRINA XIONG OTR/Julián Service: ? Author Type: Occupational Therapist Type: Therapy (PT/OT/Speech/Resp) Filed: 03/01/2025 12:56 Note Text: Program_ID:[id number] Access Code: [email or web address] URL: [email or web address] Date: 03-01-2025 Prepared By: Sabrina Xiong Program [...] - CC Edema Swelling Control UE Normal [facility] ANES POSTPROC EVALon 025 ANES POSTPROC EVAL HNO ID: [id number] Author: UGO KHAN MD Service: Anesthesiology Author Type: Physician Type: Anesthesia Postprocedure Evaluation Filed: 02/19/2025 16:45 Note Text: POST ANESTHESIA EVALUATION NOTE : 1960 Procedure Summary Date: 02/19/25 Room / Location: [place] [address] / [facility] Anesthesia Start: 1315 Anesthesia Stop: 1516 [...] February 19, 2025 TIME: 4:45 PM CSN: [id number] Normal [facility] ANES PRE-OPon 02-19-2025 ANES PRE-OP HNO ID: [id number] Author: UGO KHAN MD Service: Anesthesiology Author Type: Physician Type: Anesthesia Preprocedure Evaluation Filed: 02/19/2025 12:36 Note Text: ANESTHESIOLOGY DAY OF SURGERY NOTE : 1960 Procedure Information Date/Time: 02/19/25 1229 Procedure: ORIF DISTAL RADIUS THREE OR MORE FRAGMENTS (Left: Arm) - REGIONAL Location: [place] [address] / [facility] Surgeons: Tomas Gramajo MD Estimated body [...] and consent discussed: yes. Patient / Responsible Green Party agrees to proceed: yes Patient / Surrogate [...] 75 mg by mouth once daily. Vit 97-Qrud-NP-DSS ( AD) 90-1-50 mg Tab Take by mouth. I have interviewed and examined the patient. I have reviewed the medical record and/or the pre-anesthesia evaluation, pertinent labs, and test results. This contains updated information obtained within 48 hours of Surgery/Procedure. SIGNATURE: Ugo Khan MD PATIENT NAME: Porsha House DATE: February 19, 2025 TIME: 12:08 PM CSN: [id number] Normal [facility] HISTORY PHYSICALon HISTORY PHYSICAL HNO ID: [id number] Author: FLORIAN JOAQUIN APRN.PLATE DRYING MACHINE TENDER Service: Anesthesiology Author Type: Nurse Practitioner Type: [...] mouth once daily. 02/18/2025 Evening Yes Vit 40-Vcir-GD-DSS ( AD) 90-1-50 mg Tab Take by [...] No history of chest pain, palpitations, CHF, IN, cardiac surgery or stents; + dysl (more content not included)... [facility] NURSING PROGon 02-19-2025 NURSING PROG HNO ID: [id number] Author: VIDYA ADAMS RN Service: ? Author Type: Registered Nurse Type: Nursing Progress Note Filed: 02/19/2025 16:49 Note Text: Patient dressed with assistance at bedside. Patient discharged home in stable condition with sister in law Verónica. [facility] OPERATIVE NOon 02-19-2025 OPERATIVE NO HNO ID: [id number] Author: TOMAS GRAMAJO MD Service: Orthopaedic Surgery Author Type: Physician Type: Operative Report Filed: 02/19/2025 15:23 Note Text: Hand Surgery Operative Note PATIENT: Porsha House [id number] DATE OF SURGERY: 02/19/2025 PREOPERATIVE DIAGNOSES: Left [...] and MAC ATTENDING SURGEON: Tomas Gramajo MD SOAP MAKER SURGEON: There were no qualified residents available to assist in the case Yehuda Kirk PA-C was the assistant project engineer Under the supervision of the attending surgeon, [...] partially healed. I needed to use a Hercules to find the fracture line and mobilized [...] screw placed (more content not included)... Normal [facility] XR WRIST 2V PA/LAT LTon 05-0 XR [...] a surgical procedure at the left wrist. Fancy Packer: TATY Transcribe Date/Time: Feb 19 2025 3:32P Dictated by : LACI GALINDO MD This examination was interpreted and the report reviewed and electronically signed by: LACI GALINDO MD on Feb 19 2025 3:33PM EST [id number] Normal [facility] CNOVon 02-14-2025 CNOV Office Visit (ORMDNA ) PORSHA HOUSE ([id number]) 1960 F [facility] Date Time Provider Department 02/14/25 3:00 PM [...] oxycodone issued until definitive care with the network pricing consultant can be arranged Allergies As of [...] mg by mouth once daily. - Vit 31-Qlxx-XC-DSS ( AD) 90-1-50 mg Tab Take by [...] Encounter Status:Closed by GUILLAUME MERRILL on 03/14/25 [facility] XR WRIST 3V PA/LAT/OBL LTon 02-14-2025 XR [...] healed distal radius fracture status post casting. Fancy Packer: PSCB Transcribe Date/Time: Feb 19 2025 4:12P Dictated by : CARLOS SALAZAR MD This examination was interpreted and the report reviewed and electronically signed by: CARLOS SALAZAR MD on Feb 19 2025 4:14PM EST [id number] [facility] 02-09-2025 [facility] Office Visit (ORMDNA ) PORSHA HOUSE ([id number]) 1960 F [facility] Date Time Provider Department 02/09/25 10:00 AM [facility] During your visit today, we recorded the following information about you: Rico Wolf Cast Tech 02/09/2025 10:21 AM Signed PT ASSESSMENT - CASTING ROOM Porsha presents for Application of cast. Applied short cast: to Left arm Patient has been instructed in Care of cast.. Rico Wolf Cast Tari Referring Provider: LESLYE LEMUS [[id number]] Allergies As of Date: 02/09/2025 Noted Allergy [...] mg by mouth once daily. - Vit 00-Qyrz-DA-DSS ( AD) 90-1-50 mg Tab Take by mouth. Problem List As Of Date 02/09/2025 Noted Resolved Degenerative arthritis of right knee [M17.11] 03/10/2013 Vasculitis [I77.6] Pure hypercholesterolemia [E78.00] Other vitamin B12 deficiency anemia [D51.8] Osteoporosis [M81.0] Other and unspecified postsurgical nonabsorptio*07/21/2013 S/P knee replacement [Z96.659] 08/21/2013 Encounter Status:Closed by RICO WOLF on 02/09/[address] [facility] CNOV Office Visit (ORMDNA ) HARSH,PORSHA D ([id number]) 1960 [facility] Date Time Provider Department 02/09/25 9:30 [...] for pain, 7 days supply, sent to [facility] in [place]. - Advised patient to monitor for worsening numbness, tingling, or pain and to report any significant changes immediately. Attestation Recording using [employer] software for draft documentation of the visit was discussed with the patient/authorized u.s. representative; all questions welcomed and answered. Patient/authorized u.s. representative agreed to proceed Referring Provider: LESLYE LEMUS [[id number]] Allergies As of Date: 02/09/2025 Noted Allergy [...] mg by mouth once daily. - Vit 25-Clwm-EH-DSS ( AD) 90-1-50 mg Tab Take by [...] for Encounter Date Provider Department Center 02/09/2025 [id number] MERRILL [facility] Letter Text Encounter (more content not included)... Normal [facility] ALLIED HEALTHon 02-03-2025 ALLIED HEALTH HNO ID: [id number] Author: STEPHANIA NOGUEIRA RT(All) Service: Radiology Author [...] PATIENT PRESENTS WITH AN IMPLANTABLE OR ATTACHED PRAWN TRAWLER HAND: No RADIOLOGY DEPARTMENT: General X-ray: Exam(s) Completed: Upper Extremity X-Ray(s): Wrist, left PERIPHERAL IV DATA: Not applicable SIGNED BY: RT [place](R) February 03, 2025 5:39 PM [facility] ([id number]) 1960 F T Date Time Provider Department 02/03/25 ERICKA VILLELA During your visit today, we recorded the following information about you: Chung Pryor 02/03/2025 7:05 PM Signed Patient seen in [facility] on 02/03/2025 in regards to worsening 02/03/2025 Dr. 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 Merrill or another provider be willing to see patient in regards to their injury? Patient can be reached at [phone] Thank You! Gracia Hall, [place] 02/05/2025 7:35 [...] mg by mouth once daily. - Vit 08-Bikz-CU-DSS ( AD) 90-1-50 mg Tab Take by mouth. Problem List As Of Date 02/03/2025 Noted Resolved Degenerative arthritis of right knee [M17.11] 03/10/2013 Vasculitis [I77.6] Pure hypercholesterolemia [E78.00] Other vitamin B12 deficiency anemia [D51.8] Osteoporosis [M81.0] Other and unspecified postsurgical nonabsorptio*07/21/2013 S/P knee replacement [Z96.659] 08/21/2013 Encounter Status:Closed by ISAIAS GONZALEZ on 02/05/[address] [facility] ED PROV NOTEon 02-03-2025 ED PROV NOTE HNO ID: [id number] Author: LESLYE LEMUS PA-C Service: ? Author Type: Physician Net Finisher Type: ED Provider Notes Filed: 02/03/2025 20:46 [...] numbness or tingling History provided by: Patient bilingual interpreter used: No PAST MEDICAL HISTORY Diagnosis Date [...] Transverse fracture of the distal left radius Fancy Packer: TATY Transcribe Date/Time: Feb 03 2025 6:26P Dictated by : SAIMA MOORE MD This examination was interpreted and the report reviewed and (more content not included)... Normal [facility] XR WRIST 4V PA/LAT/OBL/SCAPH LTon 02-03-2025 [...] Transverse fracture of the distal left radius Fancy Packer: TATY Transcribe Date/Time: Feb 03 2025 6:26P Dictated by : SAIMA MOORE MD This examination was interpreted and the report reviewed and electronically signed by: SAIMA MOORE MD on Feb 03 2025 6:28PM EST [id number] [facility] 01-31-2025 [facility] Office Visit (ORMDNA ) PORSHA HOUSE ([id number]) 1960 F [facility] Date Time Provider Department 01/31/25 8:30 AM [...] these instructions. Informed Consent Consent Obtained: Verbal [place] Protocol A moment to CARE was completed. [...] changes; continue current management. Attestation Recording using [employer] software for draft documentation of the visit was discussed with the patient/authorized u.s. representative; all questions welcomed and answered. Patient/authorized u.s. representative agreed to proceed Referring Provider: SELF [200] Allergies As of Date: 01/31/2025 Noted Allergy Reaction IBUPROFEN 03/09/2013 (more content not included)... Normal [facility] Large Joint Arthro/Inj: L kn ee jointon [...] these instructions. Informed Consent Consent Obtained: Verbal [place] Protocol A moment to CARE was completed. [...] implant(s) inserted. SIGN OUT No specimen collected. [facility] BI MAMMO BILATERAL SCREENING TOMOSYNTHESISon 01-10-2025 BI MAMMO BILATERAL SCREENING TOMOSYNTHESIS Interpreted By: Sofie Mccarthy, STUDY: BI MAMMO BILATERAL SCREENING TOMOSYNTHESIS; 01/10/2025 10:42 am ACCESSION NUMBER(S): [id number] ORDERING CLINICIAN: ERICKA VILLELA INDICATION: Screening. Bilateral [...] any future breast imaging appointments, please call [phone] ([phone]). MACRO: None Signed by: Sofie Mccarthy 01/12/2025 3:21 PM Dictation workstation: [id number] [facility] DRUG MONITOR, PANEL 1, W/CON F, URINEon 12-22-2024 Amphetamines Negative Normal <500 [facility] Comment on above: Performed By: #### 3 [id number] #### [facility] [place] [address] [place] , [address] [place], [place] [id number] County Agricultural Agent: Jin Fields MD Barbiturates Negative Normal <300 [facility] Comment on above: Performed By: #### 3 9422 #### [facility] [address] , [address] [place] [address] County Agricultural Agent: Jin Fields MD Benzodiazepines Negative Normal <100 [facility] Comment on above: Performed By: #### 3 9422 #### [facility] [address] , [address] [place] [address] County Agricultural Agent: Jin Fields MD Cocaine Metabolite Negative Normal <150 [facility] Comment on above: Performed By: #### 3 9422 #### [facility] of [place] [address] [address] , [address] [place] [address] County Agricultural Agent: Jin Fields MD Creatinine (U) [Mass/Vol] 75.2 mg/dL Normal > or = 20.0 [facility] Comment on above: Performed By: #### 3 9422 #### [facility] of [place] [address] County Agricultural Agent: Jin Fields MD Marijuana Metabolite Negative Normal <20 [facility] Comment on above: Performed By: #### 3 9422 #### [facility] of [address], [address] [place] [address] County Agricultural Agent: Jin Fields MD Methadone Metabolite Negative Normal <100 [facility] Comment on above: Performed By: #### 3 9422 #### [facility] [place] [address] County Agricultural Agent: Jin Fields MD Opiates Negative Normal <100 [facility] Comment on above: Performed By: #### 3 9422 #### [facility] of [place] [address] County Agricultural Agent: Jin Fields MD Oxidant Negative Normal <200 [facility] Comment on above: Performed By: #### 3 9422 #### [facility] [place] [address] County Agricultural Agent: Jin Fields MD Oxycodone Negative Normal <100 [facility] Comment on above: Performed By: #### 3 9422 #### [facility] of [place] [address] [address] [place] [address] County Agricultural Agent: Jin Fields MD pH (U) 6.5 [pH] Normal 4.5-9.0 [facility] Comment on above: Performed By: #### 3 9422 #### [facility] of [place] [address] County Agricultural Agent: Jin Fields MD Phencyclidine Negative Normal <25 [facility] Comment on above: Performed By: #### 3 9422 #### [facility] [address], [address] [place] [address] [place] Agricultural Agent: Jin Fields MD DRUG MONITORING TEMPLATEon 0 [...] needing Interpretation assistance, please contact us at [phone] ( ) M-F, 8am to 10pm EST Performed By: #### 3 9422 #### [facility] [address], [address] [place], [place] [address] [place] Agricultural Agent: Jin Fields MD XR CERVICAL SPINE 2-3 VIEWSo n 12-19-2024 XR CERVICAL SPINE 2-3 VIEWS Interpreted By: Cale Thornton, STUDY: XR CERVICAL SPINE 2-3 VIEWS; ; 12/19/2024 3:54 pm INDICATION: Signs/Symptoms:Patient fell 2 weeks ago and has concerns about neck. ,M54.2 Cervicalgia COMPARISON: 10/25/2024 ACCESSION NUMBER(S): [id number] ORDERING CLINICIAN: MARILEE WISEMAN FINDINGS: C-spine, two views Anterior spinal fusion at C5-C6. There is no fracture. There is no spondylolisthesis. There is no disc space narrowing or osteophytosis. The prevertebral soft tissues are within normal limits. IMPRESSION: C5-C6 anterior fusion without acute abnormality MACRO: None Signed by: Cale Thornton 12/20/2024 5:45 PM Dictation workstation: [id number] [facility] XR CERVICAL SPINE COMPLETE 4 -5 VIEWSon 10-25-2024 XR CERVICAL SPINE COMPLETE 4-5 VIEWS Interpreted By: Zachary Lopez, STUDY: XR CERVICAL SPINE COMPLETE 4-5 VIEWS; ; 10/25/2024 10:45 am INDICATION: Signs/Symptoms:fall and neck pain. ,M62.838 Other muscle spasm COMPARISON: 05/23/2018 ACCESSION NUMBER(S): [id number] ORDERING CLINICIAN: ERICKA VILLELA FINDINGS: Five views [...] Zachary Lopez 10/28/2024 2:50 PM Dictation workstation: [id number] Normal [facility] Calcidiolon 09-20-2024 25-hydroxyvitamin D3 [Mass/Vol] 53 ng/mL Normal 30-100 [facility] Comment on above: Order Comment: Defic iency: < 20 ng/ml Insufficiency: 20-29 ng/ml Sufficiency: 30-100 ng/ml This assay accurately quantifies the sum of Vitamin D3, 25-Hydroxy and Vitamin D2,25-Hydroxy. Performed By: #### 1 989-3 #### LAYA Gallego ([id number]) [facility] ([facility]) [address] [place] [address] 18195 Comprehensive metabolic 2000 panelon 09-20-2024 Albumin BCP dye [Mass/Vol] 3.9 g/dL Normal 3.4-5.0 [facility] Comment on above: Performed By: #### 2 4323-8 #### LAYA Gallego ([id number]) [facility] ([facility]) [address] [place] [address] 41572 ALP [Catalytic activity/Vol] 98 U/L Normal 33-136 [facility] Comment on above: Performed By: #### 2 4323-8 #### LAYA Gallego ([id number]) [facility] ([facility]) [address] [place] [address] 34355 ALT With P-5'-P [Catalytic activity/Vol] 37 U/L Normal 7-45 [facility] Comment on above: Result Comment: Kenzie ents treated with Sulfasalazine may generate falsely decreased results for ALT. Performed By: #### 2 4323-8 #### LAYA QUIROZTZER L ([id number]) [facility] ([facility]) [address] [place] [address] Anion gap [Moles/Vol] 12 mmol/L Normal 10-20 [facility] Comment on above: Performed By: #### 2 4323-8 #### LAYA QUIROZTZER L ([id number]) [facility] ([facility]) [address] [place] [address] AST With P-5'-P [Catalytic activity/Vol] 35 U/L Normal 9-39 [facility] Comment on above: Result Comment: MILD HEMOLYSIS DETECTED. The result may be falsely elevated due to hemolysis or other interferents. Clinical correlation is recommended. Repeat testing may be considered. Performed By: #### 2 4323-8 #### LAYA MATIAS L ([id number]) [facility] ([facility]) [address] [place] [address] Bilirubin [Mass/Vol] 0.9 mg/dL Normal 0.0-1.2 [facility] Comment on above: Performed By: #### 2 4323-8 #### LAYA GARCIAMOTZER L ([id number]) [facility] ([facility]) [address] [place] [address] Calcium [Mass/Vol] 9.8 mg/dL Normal 8.6-10.6 [facility] Comment on above: Performed By: #### 2 4323-8 #### LAYA GARCIAMOTZER L ([id number]) [facility] ([facility]) [address] [place] [address] Chloride [Moles/Vol] 107 mmol/L Normal 98-107 [facility] Comment on above: Performed By: #### 2 4323-8 #### LAYA SCHMOTZER L ([id number]) [facility] ([facility]) [address] [place] [address] CO2 [Moles/Vol] 28 mmol/L Normal 21-32 [facility] Comment on above: Performed By: #### 2 4323-8 #### LAYA Gallego ([id number]) [facility] ([facility]) [address] [place] [address] Creatinine [Mass/Vol] 0.87 mg/dL Normal 0.50-1.05 [facility] Comment on above: Performed By: #### 2 4323-8 #### LAYA Gallego ([id number]) [facility] ([facility]) [address] [place] [address] 42701 Glomerular filtration rate/1.73 sq M.predicted 74 mL/min/1.73m*2 Normal >60 [facility] Comment on above: Result Comment: Calc ulations of estimated GFR are performed using the 2020 CKD-EPI Study Refit equation without the race variable for the IDMS-Traceable creatinine methods. https://jasn.asnjournals.org/content/early//ASN.029729 2749 Performed By: #### 2 4323-8 #### LAYA Gallego ([id number]) [facility] ([facility]) [address] [place] [address] 78317 Glucose [Mass/Vol] 124 mg/dL High 74-99 [facility] Comment on above: Performed By: #### 2 4323-8 #### LAYA Gallego ([id number]) [facility] ([facility]) [address] [place] [address] 42498 Potassium [Moles/Vol] 4.6 mmol/L Normal 3.5-5.3 [facility] Comment on above: Result Comment: MILD HEMOLYSIS DETECTED. The result may be falsely elevated due to hemolysis or other interferents. Clinical correlation is recommended. Repeat testing may be considered. Performed By: #### 2 4323-8 #### LAYA Gallego ([id number]) [facility] ([facility]) [address] [place] [address] 77421 Protein [Mass/Vol] 6.4 g/dL Normal 6.4-8.2 [facility] Comment on above: Performed By: #### 2 4323-8 #### LAYA Gallego ([id number]) [facility] ([facility]) [address] [place] [address] Sodium [Moles/Vol] 142 mmol/L Normal 136-145 [facility] Comment on above: Performed By: #### 2 4323-8 #### LAYA Gallego ([id number]) [facility] ([facility]) [address] [place] [address] Urea nitrogen [Mass/Vol] 22 mg/dL Normal 6-23 [facility] Comment on above: Performed By: #### 2 4323-8 #### LAYA Gallego ([id number]) [facility] ([facility]) [address] [place] [address] 12917 Parathyrin.intacton 09-20-20 24 Parathyrin.intact [Mass/Vol] 121.5 pg/mL High 18.5-88.0 [facility] Comment on above: Performed By: #### 2 731-8 #### LAYA Gallego ([id number]) [facility] ([facility]) [address] [place] [address] 80052 No Panel Informationon 09-15 [facility] Work Phone: POCT Covid-19 Rapid Antigeno n 09-15-2024 SARS-CoV-2 (COVID-19) Ag IA.rapid Ql (Resp) Positive Abnormal Presumptive negative test for SARS-CoV-2 (no antigen detected) [facility] Work Phone: POCT Influenza A/B manually resultedon 09-15-2024 POC Rapid Influenza A Negative Negative [facility] Work Phone: POC Rapid Influenza B Negative Negative [facility] Work Phone: SARS-CoV-2 (COVID-19) Ag IA. rapid Ql (Resp)on 09-15-2024 Interpretation and review of laboratory results Abnormal [facility] Work Phone: CBC panel Auto (Bld)on 08-24 Erythrocyte distribution width (RBC) [Ratio] 12.6 % Normal 11.5-14.5 [facility] Comment on above: Performed By: #### 5 8410-2 #### LAYA Glalego ([id number]) [facility] ([facility]) [address] [place] [address] 91748 Hematocrit (Bld) [Volume fraction] 43.4 % Normal 36.0-46.0 [facility] Comment on above: Performed By: #### 5 8410-2 #### LAYA Gallego ([id number]) [facility] ([facility]) [address] [place] [address] 80309 Hemoglobin (Bld) [Mass/Vol] 14.1 g/dL Normal 12.0-16.0 [facility] Comment on above: Performed By: #### 5 8410-2 #### LAYA Gallego ([id number]) [facility] ([facility]) [address] [place] [address] 89163 MCH (RBC) [Entitic mass] 31.5 pg Normal 26.0-34.0 [facility] Comment on above: Performed By: #### 5 8410-2 #### LAYA Gallego ([id number]) [facility] ([facility]) [address] [place] [address] 81157 MCHC (RBC) [Mass/Vol] 32.5 g/dL Normal 32.0-36.0 [facility] Comment on above: Performed By: #### 5 8410-2 #### LAYA Gallego ([id number]) [facility] ([facility]) [address] [place] [address] 85608 MCV (RBC) [Entitic vol] 97 fL Normal 80-100 [facility] Comment on above: Performed By: #### 5 8410-2 #### LAYA Gallego ([id number]) [facility] ([facility]) [address] [place] [address] Nucleated RBC/100 WBC (Bld) [Ratio] 0.0 /100 WBCs Normal 0.0-0.0 [facility] Comment on above: Performed By: #### 5 8410-2 #### LAYA Gallego ([id number]) [facility] ([facility]) [address] [place] [address] Platelets (Bld) [#/Vol] 161 x10*3/uL Normal 150-450 [facility] Comment on above: Performed By: #### 5 8410-2 #### LAYA Gallego ([id number]) [facility] ([facility]) [address] [place] [address] 59652 RBC (Bld) [#/Vol] 4.48 x10*6/uL Normal 4.00-5.20 [facility] Comment on above: Performed By: #### 5 8410-2 #### LAYA Gallego ([id number]) [facility] ([facility]) [address] [place] [address] 93625 WBC (Bld) [#/Vol] 5.3 x10*3/uL Normal 4.4-11.3 [facility] Comment on above: Performed By: #### 5 8410-2 #### LAYA Gallego ([id number]) [facility] ([facility]) [address] [place] [address] Comprehensive metabolic 2000 panelon 08-24-2024 Albumin BCP dye [Mass/Vol] 4.0 g/dL Normal 3.4-5.0 [facility] Comment on above: Performed By: #### 2 4323-8 #### LAYA Gallego ([id number]) [facility] ([facility]) [address] [place] [address] 87691 ALP [Catalytic activity/Vol] 93 U/L Normal 33-136 [facility] Comment on above: Performed By: #### 2 4323-8 #### LAYA Gallego ([id number]) [facility] ([facility]) [address] [place] [address] ALT With P-5'-P [Catalytic activity/Vol] 28 U/L Normal 7-45 [facility] Comment on above: Result Comment: Kenzie ents treated with Sulfasalazine may generate falsely decreased results for ALT. Performed By: #### 2 4323-8 #### LAYA Gallego ([id number]) [facility] ([facility]) [address] [place] [address] Anion gap [Moles/Vol] 12 mmol/L Normal 10-20 [facility] Comment on above: Performed By: #### 2 4323-8 #### LAYA Gallego ([id number]) [facility] ([facility]) [address] [place] [address] AST With P-5'-P [Catalytic activity/Vol] 31 U/L Normal 9-39 [facility] Comment on above: Performed By: #### 2 4323-8 #### LAYA MATIAS L ([id number]) [facility] ([facility]) [address] [place] [address] 06319 Bilirubin [Mass/Vol] 1.0 mg/dL Normal 0.0-1.2 [facility] Comment on above: Performed By: #### 2 4323-8 #### LAYA MATIAS L ([id number]) [facility] ([facility]) [address] [place] [address] Calcium [Mass/Vol] 9.8 mg/dL Normal 8.6-10.6 [facility] Comment on above: Performed By: #### 2 4323-8 #### LAYA MATIAS L ([id number]) [facility] ([facility]) [address] [place] [address] Chloride [Moles/Vol] 107 mmol/L Normal 98-107 [facility] Comment on above: Performed By: #### 2 4323-8 #### LAYA MATIAS L ([id number]) [facility] ([facility]) [address] [place] [address] 65529 CO2 [Moles/Vol] 28 mmol/L Normal 21-32 [facility] Comment on above: Performed By: #### 2 4323-8 #### LAYA Gallego ([id number]) [facility] ([facility]) [address] [place] [address] 63010 Creatinine [Mass/Vol] 0.90 mg/dL Normal 0.50-1.05 [facility] Comment on above: Performed By: #### 2 4323-8 #### LAYA Gallego ([id number]) [facility] ([facility]) [address] [place] [address] 98907 Glomerular filtration rate/1.73 sq M.predicted 71 mL/min/1.73m*2 Normal >60 [facility] Comment on above: Result Comment: Calc ulations of estimated GFR are performed using the 2020 CKD-EPI Study Refit equation without the race variable for the IDMS-Traceable creatinine methods. https://jasn.asnjournals.org/content/early//ASN.483482 5866 Performed By: #### 2 4323-8 #### ALYA Gallego ([id number]) [facility] ([facility]) [address] [place] [address] 50189 Glucose [Mass/Vol] 100 mg/dL High 74-99 [facility] Comment on above: Performed By: #### 2 4323-8 #### LAYA Gallego (72092) [facility] ([facility]) [address] [place] [address] 74670 Potassium [Moles/Vol] 4.7 mmol/L Normal 3.5-5.3 [facility] Comment on above: Performed By: #### 2 4323-8 #### LAYA Gallego (03229) [facility] ([facility]) [address] [place] [address] 56831 Protein [Mass/Vol] 6.3 g/dL Low 6.4-8.2 [facility] Comment on above: Performed By: #### 2 4323-8 #### LAYA Gallego (63533) [facility] ([facility]) [address] [place] [address] Sodium [Moles/Vol] 142 mmol/L Normal 136-145 [facility] Comment on above: Performed By: #### 2 4323-8 #### LAYA Gallego ([id number]) [facility] ([facility]) [address] [place] [address] Urea nitrogen [Mass/Vol] 15 mg/dL Normal 6-23 [facility] Comment on above: Performed By: #### 2 4323-8 #### LAYA Gallego (87691) [facility] ([facility]) [address] [place] [address] 10978 Basic metabolic 2000 panelon 07-27-2024 Anion gap [Moles/Vol] 9 mmol/L Low 10-20 [facility] Comment on above: Performed By: #### 2 4321-2 #### LAYA Gallego ([id number]) [facility] ([facility]) [address] [place] [address] 89057 Calcium [Mass/Vol] 9.2 mg/dL Normal 8.6-10.6 [facility] Comment on above: Performed By: #### 2 4321-2 #### LAYA Gallego (87754) [facility] ([facility]) [address] [place] [address] 67350 Chloride [Moles/Vol] 108 mmol/L High 98-107 [facility] Comment on above: Performed By: #### 2 4321-2 #### LAYA MATIAS L ([id number]) [facility] ([facility]) [address] [place] [address] 98552 CO2 [Moles/Vol] 28 mmol/L Normal 21-32 [facility] Comment on above: Performed By: #### 2 4321-2 #### LAYA Gallego ([id number]) [facility] ([facility]) [address] [place] [address] 63666 Creatinine [Mass/Vol] 0.82 mg/dL Normal 0.50-1.05 [facility] Comment on above: Performed By: #### 2 4321-2 #### LAYA Gallego (22836) [facility] ([facility]) [address] [place] [address] 39058 Glomerular filtration rate/1.73 sq M.predicted 79 mL/min/1.73m*2 Normal >60 [facility] Comment on above: Result Comment: Calc ulations of estimated GFR are performed using the 2020 CKD-EPI Study Refit equation without the race variable for the IDMS-Traceable creatinine methods. https://jasn.asnjournals.org/content/early//ASN.505860 2249 Performed By: #### 2 4321-2 #### LAYA Gallego ([id number]) [facility] ([facility]) [address] [place] [address] 46524 Glucose [Mass/Vol] 106 mg/dL High 74-99 [facility] Comment on above: Performed By: #### 2 4321-2 #### LAYA Gallego (90833) [facility] ([facility]) [address] [place] [address] 90456 Potassium [Moles/Vol] 4.3 mmol/L Normal 3.5-5.3 [facility] Comment on above: Performed By: #### 2 4321-2 #### LAYA MATIAS L ([id number]) [facility] ([facility]) [address] [place] [address] 69406 Sodium [Moles/Vol] 141 mmol/L Normal 136-145 [facility] Comment on above: Performed By: #### 2 4321-2 #### LAYA MATIAS L ([id number]) [facility] ([facility]) [address] [place] [address] 25679 Urea nitrogen [Mass/Vol] 15 mg/dL Normal 6-23 [facility] Comment on above: Performed By: #### 2 4321-2 #### LAYA Gallego (89329) [facility] ([facility]) [address] [place] [address] 62511 Calcidiolon 07-27-2024 25-hydroxyvitamin D3 [Mass/Vol] 41 ng/mL Normal 30-100 [facility] Comment on above: Order Comment: Defic iency: < 20 ng/ml Insufficiency: 20-29 ng/ml Sufficiency: 30-100 ng/ml This assay accurately quantifies the sum of Vitamin D3, 25-Hydroxy and Vitamin D2,25-Hydroxy. Performed By: #### 1 989-3 #### LAYA Gallego ([id number]) [facility] ([facility]) [address] [place] [address] 40009 Collagen crosslinked C-telop eptideon 07-27-2024 Collagen crosslinked C-telopeptide [Mass/Vol] 412 pg/mL Normal [facility] Comment on above: Result Comment: Premenopausal Females: 136-689 pg/mL Postmenopausal Females: 177-1015 pg/mL REFERENCE INTERVAL: C-Telopeptide, Clcs-Vjspl-Varbmd, Serum Access complete set of age- and/or gender-specific reference intervals for this test in the [facility] Test Directory ([employer]). Performed By: [employer] [address] [place] [address] 76564 Recruiter Manager: Leonardo Roberts MD, PhD CLIA Number: [id number] Performed By: #### 4 1171-0 #### [employer] ([facility] ([id number]) [address] [place] [address] Parathyrin.intacton 07-27-20 24 Parathyrin.intact [Mass/Vol] 158.4 pg/mL High 18.5-88.0 [facility] Comment on above: Performed By: #### 2 731-8 #### LAYA Gallego ([id number]) [facility] ([facility]) [address] [place] [address] 21240 HbA1c (Bld) [Mass fraction]o n 06-01-2024 Average glucose Estimated from glycated hemoglobin (Bld) [Mass/Vol] 114 mg/dL Normal Not Established [facility] Comment on above: Order Comment: Diagn osis of Diabetes-Adults Non-Diabetic: < or = 5.6% Increased risk for developing diabetes: 5.7-6.4% Diagnostic of diabetes: > or = 6.5% Performed By: #### 4 548-4 #### LAYA Gallego ([id number]) [facility] ([facility]) [address] [place] [address] Hemoglobin A1c/Hemoglobin.to justine 06-01-2024 HbA1c (Bld) [Mass fraction] 5.6 % Normal see below [facility] Comment on above: Order Comment: Diagn osis of Diabetes-Adults Non-Diabetic: < or = 5.6% Increased risk for developing diabetes: 5.7-6.4% Diagnostic of diabetes: > or = 6.5% Performed By: #### 4 548-4 #### LAYA Gallego ([id number]) [facility] ([facility]) [address] [place], [place] [id number] [facility] ([id number]) 1960 F T Date Time Provider Department 05/03/24 GUILLAUME MERRILL [facility] During your visit today, we recorded the [...] Fully Assessed Reason for Visit: Insurance Authorization [1893] Cmt: Prior Auth Delayed: Additional Info Needed- [...] mg by mouth once daily. - Vit 94-Ejuu-JZ-DSS ( AD) 90-1-50 mg Tab Take by mouth. Problem List As Of Date 05/03/2024 Noted Resolved Degenerative arthritis of right knee [M17.11] 03/10/2013 Vasculitis [I77.6] Pure hypercholesterolemia [E78.00] Other vitamin B12 deficiency anemia [D51.8] Osteoporosis [M81.0] Other and unspecified postsurgical nonabsorptio*07/21/2013 S/P knee replacement [Z96.659] 08/21/2013 Encounter Status:Closed by GRISELDA JORDAN on 07/27/24 Normal [facility] XR Knee - left 4 Viewson * [...] significant joint effusion. Right TKA is evident. [facility] Provider, david Ramirez [place] - 04/29/2024 * * *Final Report* * [...] IMPRESSION IMPRESSION: Osteoarthrosis, showing mild interval progression Fancy Packer: [facility] Transcribe Date/Time: Apr 29 2024 11:19A Dictated by : MYRIAM CASTILLO MD This examination was interpreted and the report reviewed and electronically signed by: MYRIAM CASTILLO MD on Apr 29 2024 11:20AM EST [facility] XR Knee - left 4 ViewsOrdere d By: Cc Provider on 04-29-2024 [facility] CNOVon 04-28-2024 CNOV Office Visit ([facility] ) PORSHA HOUSE ([id number]) 1960 F T Date Time Provider Department 04/28/24 3:30 PM GUILLAUME MERRILL During your visit today, we recorded the following information about you: Weight Height 77 kg 1.549 m Guillaume Merrill MD 05/25/2024 2:02 PM Signed [id number] Ms. House was last seen for left [...] Impression: IMPRESSION: Osteoarthrosis, showing mild interval progression Fancy Packer: TATY Transcribe Date/Time: Apr 29 2024 11:19A [...] knee joints Informed Consent Consent Obtained: Verbal [place] Protocol A moment to CARE was completed. [...] Post-procedure f (more content not included)... Normal [facility] Large Joint Arthro/Inj: bila teral knee jointson 04-28-2024 Guillaume Merrill MD 05/25/2024 2:02 PM Large Joint Arthro/Inj: bilateral knee joints Informed Consent Consent Obtained: Verbal [place] Protocol A moment to CARE was completed. [...] Plan of Care Visit completed when applicable [facility] XR KNEE 4V AP/PA BOTH+LAT/ME R LTon [...] evident. IMPRESSION: Osteoarthrosis, showing mild interval progression Fancy Packer: TATY Transcribe Date/Time: Apr 29 2024 11:19A Dictated by : MYRIAM CASTILLO MD This examination was interpreted and the report reviewed and electronically signed by: MYRIAM CASTILLO MD on Apr 29 2024 11:20AM EST [id number] [facility] XR Knee - left 4 Viewson Radiology Study observation (narrative) [facility] DXA Skeletal system Views fo r bone densityon 01-10-2024 DEXA: According to World Health Organization criteria, classification is osteoporosis. Followup recommended in one year or sooner as clinically warranted. All images and detailed analysis are available on the Radiology PACS. Signed by: Federico Seymour 01/10/2024 5:21 PM Dictation workstation: [id number] Interpreted By: Federico Seymour, STUDY: DEXA BONE DENSITY01/10/2024 10:50 am INDICATION: The patient is a 63-year-old female who presents for follow-up. COMPARISON: Multiple DEXA scans, most recently 05/08/2021 ACCESSION NUMBER(S): [id number] ORDERING CLINICIAN: ERICKA VILLELA TECHNIQUE: DEXA BONE [...] below -2.5 This exam was performed at [facility] on a [employer] Prodigy Dexa Unit. [facility] - 01/10/2024 Interpreted By: Federico Seymour, STUDY: DEXA BONE DENSITY01/10/2024 10:50 am INDICATION: The patient is a 63-year-old female who presents for follow-up. COMPARISON: Multiple DEXA scans, most recently 05/08/2021 ACCESSION NUMBER(S): [id number] ORDERING CLINICIAN: ERICKA VILLELA TECHNIQUE: DEXA BONE [...] below -2.5 This exam was performed at [facility] on a GE [employer] Prodigy Dexa Unit. IMPRESSION: DEXA: According to World Health Organization criteria, classification is osteoporosis. Followup recommended in one year or sooner as clinically warranted. All images and detailed analysis are available on the Radiology PACS. Signed by: Federico Seymour 01/10/2024 5:21 PM Dictation workstation: [id number] [facility] Work Phone: Radiology Study observation (narrative) [facility] Work Phone: DXA Skeletal system Views fo r bone densityOrdered By: NazarionegarJimmy Seymour on 01-10-2024 [facility] Work Phone: Basic metabolic 2000 panelon 12-16-2023 Anion gap [Moles/Vol] 13 mmol/L 10 - 2 0 mmol/L [facility] Calcium [Mass/Vol] 9.1 mg/dL 8.6 - 10. 6 mg/dL [facility] Chloride [Moles/Vol] 107 mmol/L 98 - 10 7 mmol/L [facility] CO2 [Moles/Vol] 24 mmol/L 21 - 32 mmol/L [facility] Creatinine [Mass/Vol] 0.75 mg/dL 0.50 - 1.05 mg/dL [facility] GFR/1.73 sq M.predicted among non-blacks MDRD (S/P/Bld) [Vol rate/Area] 88 mL/min/{1.73_m2} - PINF [facility] Comment on above: Calculations of armond mated GFR are performed using the 2020 CKD-EPI Study Refit equation without the race variable for the IDMS-Traceable creatinine methods. https://jasn.asnjournals.org/content//ASN.532688 5985 Glucose [Mass/Vol] 131 mg/dL High 74 - 99 mg/dL [facility] Interpretation and review of laboratory results Abnormal [facility] Potassium [Moles/Vol] 4.3 mmol/L 3.5 - 5.3 mmol/L [facility] Sodium [Moles/Vol] 140 mmol/L 136 - 145 mmol/L [facility] Urea nitrogen [Mass/Vol] 14 mg/dL 6 - 23 mg/dL [facility] CBC panel Auto (Bld)on Erythrocyte distribution width (RBC) [Ratio] 12.7 % 11.5 - 14.5 % [facility] Hematocrit (Bld) [Volume fraction] 46.2 % High 36.0 - 46.0 % [facility] Hemoglobin (Bld) [Mass/Vol] 14.4 g/dL 12.0 - 16.0 g/dL [facility] Interpretation and review of laboratory results Abnormal [facility] MCH (RBC) [Entitic mass] 30.3 pg 26.0 - 34.0 pg [facility] MCHC (RBC) [Mass/Vol] 31.2 g/dL Low 32.0 - 36.0 g/dL [facility] MCV (RBC) [Entitic vol] 97 fL 80 - 100 fL [facility] Nucleated RBC/100 WBC (Bld) [Ratio] 0.0 % [facility] Platelets (Bld) [#/Vol] 138 10*3/uL Low [facility] RBC (Bld) [#/Vol] 4.75 10*6/uL [facility] WBC (Bld) [#/Vol] 5.1 10*3/uL [facility] No Panel Informationon 09-22 Table formatting [...] Await pathology results 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 Consider Motility study Indication Pharyngoesophageal dysphagia Post [...] Beth Meehan RN 09/22/2023 1126 Procedure Location [facility] External Facility [facility] [address] [facility] [id number] Ref[place] [address] [place] [address] Procedure Provider Iza Ko MD [facility] Work Phone: [facility] Work Phone: Radiology Study observation (narrative) [facility] Work Phone: [place] MODIFIED BARIUM SWALLOW S Nguyen 07-28-2023 [place] MODIFIED BARIUM SWALLOW STUDY Interpreted By: Quinn Baeza and Monica Hernández STUDY: [place] MODIFIED BARIUM SWALLOW STUDY;; 07/28/2023 12:16 pm INDICATION: Signs/Symptoms:Increase d difficulty swallowing. COMPARISON: None. ACCESSION NUMBER(S): [id number] ORDERING CLINICIAN: ERICKA VILLELA TECHNIQUE: MBSS completed. [...] Repeat study/ dc plan: As clinically warranted KEG INSPECTOR impressions with severity rating: Oral motor movements [...] Pharyngeal Residue, Thin Liquid (MBSS): spontaneous clearing [place] Thick Liquids (MBSS) Rosenbek's Penetration Aspiration Scale, [place] thick liquids (MBSS): 1. NO ASPIRATION & NO PENETRATION - no aspiration, contrast does not enter airway Response to Pharyngeal Residue, [place] thick liquids (MBSS): spontaneous clearing Purees (MBSS) [...] this report signed by Betty Anderson M.A., CCC/KEG INSPECTOR on 07/28/2023 at 1:03 pm. RADIOLOGY FINDINGS: Deep penetration noted with thin liquids, no evidence of any aspiration. Metallic hardware noted in the cervical spine from C5 vertebral bodies, incompletely visualized, limiting evaluation. Small residue noted in the posterior epiglottic region on the purees (more content not included)... [facility] RF videography Hypopharynx a nd Esophagus Views for swallowing function W speech and W barium contrast Clem 07-28-2023 Deep penetration not ed with thin liquids, no evidence of any aspiration. Please see the speech pathologist's report for detailed description and dietary recommendations. MACRO: None Signed by: Quinn Baeza 07/28/2023 1:43 PM Dictation workstation: [id number] MMODAL Interpreted By: [facility] Quinn mclaughlin, and Monica Hernández STUDY: [place] MODIFIED BARIUM SWALLOW STUDY;; 07/28/2023 12:16 pm INDICATION: Signs/Symptoms:Increase d difficulty swallowing. COMPARISON: None. ACCESSION NUMBER(S): [id number] ORDERING CLINICIAN: ERICKA VILLELA TECHNIQUE: MBSS completed. [...] Repeat study/ dc plan: As clinically warranted KEG INSPECTOR impressions with severity rating: Oral motor movements [...] Pharyngeal Residue, Thin Liquid (MBSS): spontaneous clearing [place] Thick Liquids (MBSS) Rosenbek's Penetration Aspiration Scale, [place] thick liquids (MBSS): 1. NO ASPIRATION & NO PENETRATION - no aspiration, contrast does not enter airway Response to Pharyngeal Residue, [place] thick liquids (MBSS): spontaneous clearing Purees (MBSS) [...] this report signed by Betty Anderson M.A. CCC/KEG INSPECTOR on 07/28/2023 at 1:03 pm. RADIOLOGY FINDINGS: [...] d difficulty swallowing. COMPARISON: None. ACCESSION NUMBER(S): [id number] ORDERING CLINICIAN: ERICKA VILLELA TECHNIQUE: MBSS completed. [...] Repeat study/ dc plan: As clinically warranted KEG INSPECTOR impressions with severity rating: Oral motor movements [...] Pharyngeal Residue, Thin Liquid (MBSS): spontaneous clearing [place] Thick Liquids (MBSS) Rosenbek's Penetration Aspiration Scale, [place] thick liquids (MBSS): 1. NO ASPIRATION & NO PENETRATION - no aspiration, contrast does not enter airway Response to Pharyngeal Residue, [place] thick liquids (MBSS): spontaneous clearing Purees (MBSS) [...] this report signed by Betty Anderson M.A., CCC/KEG INSPECTOR on 07/28/2023 at 1:03 pm. RADIOLOGY FINDINGS: Deep penetration noted with thin liquids, no evidence of any aspiration. Metallic hardware noted in the cervical spine from C5 vertebral bodies, incompletely visuali (more content not included)... 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 Nystatin 748916 UNIT/GM External PowderAPPLY SPARINGLY TO AFFECTED AREA(S) TWICE DAILY Pantoprazole Sodium 40 MG Oral Tablet Delayed Releasetake 1 tablet by mouth once daily PNV Tabs 29-1 29-1 MG TABSTAKE 1 TABLET DAILY. Polymyxin B-Trimethoprim 93690-3.1 UNIT/ML-% Ophthalmic SolutionINSERT 1 (ONE) DROP IN [...] COMPLIANCEon 06-18-2023 6-ACETYLMORPHINE <25 Normal Cutoff <25 [facility] Comment on above: Performed By: #### D SBOP #### [facility] [address] [place] [address] 7-AMINOCLONAZEPAM <25 Normal Cutoff <25 [facility] Comment on above: Performed By: #### D SBOP #### [facility] [address] [place] [address] ALPHA-HYDROXYALPRAZOL AM <25 Normal Cutoff <25 [facility] Comment on above: Performed By: #### D SBOP #### [facility] [address] [place] [address] ALPHA-HYDROXYMIDAZOLA M <25 Normal Cutoff <25 [facility] Comment on above: Performed By: #### D SBOP #### [facility] [address] [place] [address] ALPRAZOLAM <25 Normal Cutoff <25 [facility] Comment on above: Performed By: #### D SBOP #### [facility] [address] [place] [address] CHLORDIAZEPOXIDE <25 Normal Cutoff <25 [facility] Comment on above: Performed By: #### D SBOP #### [facility] [address] [place] [address] CLONAZEPAM <25 Normal Cutoff <25 [facility] Comment on above: Performed By: #### D SBOP #### [facility] [address] [place] [address] DIAZEPAM <25 Normal Cutoff <25 [facility] Comment on above: Performed By: #### D SBOP #### [facility] [address] [place] [address] EDDP,U <25 Normal Cutoff <25 [facility] Comment on above: Result Comment: The performance [...] testing. Performed By: #### D SBOP #### [facility] [address] [place] [address] FENTANYL CONFIRM,U <2.5 Normal Cutoff<2.5 [facility] Comment on above: Performed By: #### D SBOP #### [facility] [address] [place] [address] HYDROCODONE <25 Normal Cutoff <25 [facility] Comment on above: Performed By: #### D SBOP #### [facility] [address] [place] [address] LORAZEPAM <25 Normal Cutoff <25 [facility] Comment on above: Performed By: #### D SBOP #### [facility] [address] [place] [address] METHADONE,U <25 Normal Cutoff <25 [facility] Comment on above: Performed By: #### D SBOP #### [facility] [address] [place] [address] MIDAZOLAM <25 Normal Cutoff <25 [facility] Comment on above: Performed By: #### D SBOP #### [facility] [address] [place] [address] NORDIAZEPAM <25 Normal Cutoff <25 [facility] Comment on above: Performed By: #### D SBOP #### [facility] [address] [place] [address] NORFENTANYL CONFIRM,U <2.5 Normal Cutoff<2.5 [facility] Comment on above: Result Comment: The performance [...] testing. Performed By: #### D SBOP #### [facility] [address] [place] [address] OXAZEPAM <25 Normal Cutoff <25 [facility] Comment on above: Performed By: #### D SBOP #### [facility] [address] [place] [address] OXYCODONE <25 Normal Cutoff <25 [facility] Comment on above: Performed By: #### D SBOP #### [facility] [address] [place] [address] OXYMORPHONE <25 Normal Cutoff <25 [facility] Comment on above: Result Comment: The performance [...] testing. Performed By: #### D SBOP #### [facility] [address] [place] [address] TEMAZEPAM <25 Normal Cutoff <25 [facility] Comment on above: Result Comment: The performance [...] testing. Performed By: #### D SBOP #### [facility] [address] [place] [address] TRAMADOL CONFIRM,U <50 Normal Cutoff <50 [facility] Comment on above: Performed By: #### D SBOP #### [facility] [address] [place] [address] ZOLPIDEM METABOLITE[ZCA] ,U <25 Normal Cutoff <25 [facility] Comment on above: Result Comment: The performance [...] Performed By: #### D SBOP #### [facility] [address] [place] [address] ZOLPIDEM,URINE <25 Normal Cutoff <25 [facility] Comment on above: Performed By: #### D SBOP #### [facility] [address] [place] [address] CODEINE <50 Normal Cutoff <50 [facility] Comment on above: Performed By: #### D SBOP #### [facility] [address] [place] [address] HYDROMORPHONE <25 Normal Cutoff <25 [facility] Comment on above: Performed By: #### D SBOP #### [facility] [address] [place] [address] MORPHINE <50 Normal Cutoff <50 [facility] Comment on above: Performed By: #### D SBOP #### [facility] [address] [place] [address] NORHYDROCODONE <25 Normal Cutoff <25 [facility] Comment on above: Performed By: #### D SBOP #### [facility] [address] [place] [address] NOROXYCODONE <25 Normal Cutoff <25 [facility] Comment on above: Performed By: #### D SBOP #### [facility] [address] [place] [address] O-DESMETHYLTRAMADOL,U <50 Normal Cutoff <50 [facility] Comment on above: Result Comment: The performance [...] testing. Performed By: #### D SBOP #### [facility] [address] [place] [address] OPIATE/OPIOID/BENZO EXTENDED PRESCRIPTION COMPLIANCEon 06-17-2023 AMPHETAMINE SCREEN,U Negative Normal NEGATIVE [facility] Comment on above: Result Comment: CUTO FF LEVEL: 500 NG/ML Cross-reactivity has been reported with high concentrations of the following drugs: buproprion, chloroquine, chlorpromazine, ephedrine, mephentermine, fenfluramine, phentermine, phenylpropanolamine, pseudoephedrine, and propranolol. Performed By: #### D SBOP #### [facility] [address] [place] [id number] BARBITURATES SCREEN,U Negative Normal NEGATIVE [facility] Comment on above: Result Comment: CUTO FF LEVEL: 200 NG/ML Performed By: #### D SBOP #### [facility] [address] [place] [address] CANNABINOIDS SCREEN,U Negative Normal NEGATIVE [facility] Comment on above: Result Comment: CUTO FF LEVEL: 50 NG/ML Performed By: #### D SBOP #### [facility] [address] [place] [address] COCAINE METABOLITE SCREEN,U Negative Normal NEGATIVE [facility] Comment on above: Result Comment: CUTO FF LEVEL: 150 NG/ML Performed By: #### D SBOP #### [facility] [address] [place] [address] Creatinine [Mass/Vol] 84.6 mg/dL Normal [facility] Comment on above: Result Comment: A ur ine creatinine result >= 20 mg/dL is considered valid without suspicion of dilution. Samples with results below this range will automatically reflex to specific gravity testing to verify specimen integrity. Performed By: #### D SBOP #### [facility] [address] [place] [address] DRUG SCREEN COMMENT. SEE BELOW Normal [facility] Comment on above: Result Comment: Drug screen [...] directors. Performed By: #### D SBOP #### [facility] [address] [place] [id number] PCP SCREEN,U Negative Normal NEGATIVE [facility] Comment on above: Result Comment: CUTO FF LEVEL: 25 NG/ML Cross-reactivity has been reported with dextromethorphan. Performed By: #### D SBOP #### [facility] [address] [place] [id number] Laboratory - Chemistry and C hemistry - challengeon 06-16-2023 Creatinine (Body fld) [Mass/Vol] 84.6 mg/dL [facility] [address] Work Phone: Comment on above: A urine creatinine r esult >= 20 mg/dL is considered valid without suspicion of dilution. Samples with results below this range will automatically reflex to specific gravity testing to verify specimen integrity. Laboratory - Drug toxicology on 06-16-2023 1-Hydroxymidazolam Confirm (U) [Mass/Vol] <25 Cutoff <25 [facility] [address] Work Phone: 4-Jdsfeujpld-2,5-Dime thyl-3,3-Diphenylpyrr olidine (EDDP) Confirm (U) [Mass/Vol] <25 Cutoff <25 [facility] [address] Work Phone: Comment on above: The performance [...] (6-WAQAR) Confirm (U) [Mass/Vol] <25 Cutoff <25 [facility] [address] Work Phone: 7-Aminoclonazepam Confirm (U) [Mass/Vol] <25 Cutoff <25 [facility] [address] Work Phone: [phone] Alpha hydroxyalprazolam Confirm (U) [Mass/Vol] <25 Cutoff <25 [facility] [address] Work Phone: ALPRAZolam Confirm (U) [Mass/Vol] <25 Cutoff <25 [facility] [address] Work Phone: Amphetamines Screen Ql (U) Negative NEGATIVE [facility] [address] Work Phone: [phone] Comment on above: CUTOFF LEVEL: 500 NG /ML Cross-reactivity has been reported with high concentrations of the following drugs: buproprion, chloroquine, chlorpromazine, ephedrine, mephentermine, fenfluramine, phentermine, phenylpropanolamine, pseudoephedrine, and propranolol. Barbiturates Screen Ql (U) Negative NEGATIVE [facility] [address] Work Phone: [phone] Comment on above: CUTOFF LEVEL: 200 NG /ML Benzoylecgonine Screen Ql (U) Negative NEGATIVE [facility] [address] Work Phone: [phone] Comment on above: CUTOFF LEVEL: 150 NG /ML Cannabinoids Screen Ql (U) Negative NEGATIVE [facility] [address] Work Phone: Comment on above: CUTOFF LEVEL: 50 NG/ ML chlordiazePOXIDE Confirm (U) [Mass/Vol] <25 Cutoff <25 [facility] [address] Work Phone: clonazePAM Confirm (U) [Mass/Vol] <25 Cutoff <25 [facility] [address] Work Phone: Codeine Confirm (U) [Mass/Vol] <50 Cutoff <50 [facility] [address] Work Phone: diazePAM Confirm (U) [Mass/Vol] <25 Cutoff <25 [facility] [address] Work Phone: fentaNYL Confirm (U) [Mass/Vol] <2.5 Cutoff<2.5 [facility] [address] Work Phone: HYDROcodone Confirm (U) [Mass/Vol] <25 Cutoff <25 [facility] [address] Work Phone: HYDROmorphone Confirm (U) [Mass/Vol] <25 Cutoff <25 [facility] [address] Work Phone: LORazepam Confirm (U) [Mass/Vol] <25 Cutoff <25 [facility] [address] Work Phone: Methadone Confirm (U) [Mass/Vol] <25 Cutoff <25 [facility] [address] Work Phone: Midazolam Confirm (U) [Mass/Vol] <25 Cutoff <25 [facility] [address] Work Phone: Morphine Confirm (U) [Mass/Vol] <50 Cutoff <50 [facility] [address] Work Phone: Nordiazepam Confirm (U) [Mass/Vol] <25 Cutoff <25 [facility] [address] Work Phone: Norfentanyl Confirm (U) [Mass/Vol] <2.5 Cutoff<2.5 [facility] [address] Work Phone: Comment on above: The performance [...] Norhydrocodone Confirm (U) [Mass/Vol] <25 Cutoff <25 [facility] [address] Work Phone: Noroxycodone Confirm (U) [Mass/Vol] <25 Cutoff <25 [facility] [address] Work Phone: Nortramadol (U) [Mass/Vol] <50 Cutoff <50 [facility] [address] Work Phone: Comment on above: The performance [...] Oxazepam Confirm (U) [Mass/Vol] <25 Cutoff <25 [facility] [address] Work Phone: oxyCODONE Confirm (U) [Mass/Vol] <25 Cutoff <25 [facility] [address] Work Phone: oxyMORphone Confirm (U) [Mass/Vol] <25 Cutoff <25 [facility] [address] Work Phone: Comment on above: The performance [...] Temazepam Confirm (U) [Mass/Vol] <25 Cutoff <25 [facility] [address] Work Phone: Comment on above: The performance [...] traMADol Confirm (U) [Mass/Vol] <50 Cutoff <50 [facility] [address] Work Phone: Zolpidem (U) [Mass/Vol] <25 Cutoff <25 [facility] [address] Work Phone: No Panel Informationon 06-16 SEE BELOW [facility] [address] Work Phone: Comment on [...] the laboratory medical directors. <25 Cutoff <25 [facility] [address] Work Phone: Comment on above: The performance [...] laboratory testing. ANTI-SSAon 06-03-2023 ANTI-SSA <0.2 Normal [facility] Comment on above: Result Comment: REF VALUES < 1.0 = NEGATIVE >=1.0 = POSITIVE Performed By: #### A -SSA #### [facility] [address] [address] ANTI-SSBon 06-03-2023 ANTI-SSB <0.2 Normal [facility] Comment on above: Result Comment: REF VALUES < 1.0 = NEGATIVE >=1.0 = POSITIVE Performed By: #### A -SSB #### [facility] [address] [place] ANTI-SSAon 06-02-2023 Lab Specimen Source Normal [facility] Comment on above: Performed By: #### A -SSA #### [facility] [address] [place] Performed By: #### A -SSB #### [facility] [address] [place] Anti SSAon 06-02-2023 Sjogrens syndrome-A extractable nuclear Ab IA Qn (S) <0.2 [facility] [address] Work Phone: Comment on above: SOURCE: REF VALUES < 1.0 = NEGATIVE >=1.0 = POSITIVE Anti SSBon 06-02-2023 Sjogrens syndrome-B extractable nuclear Ab IA Qn (S) <0.2 [facility] [address] Work Phone: Comment on above: SOURCE: REF VALUES < 1.0 = NEGATIVE >=1.0 = POSITIVE ANKLE, COMPLETE, MIN 3 VIEWS on 02-10-2023 ANKLE, COMPLETE, MIN 3 VIEWS Patient Name: PORSHA HOUSE STUDY: ANKLE, COMPLETE, MIN 3 VIEWS; Right; 02/10/2023 5:40 pm INDICATION: S93.491A Sprain of other ligament of right ankle, initial encounter. COMPARISON: None. ACCESSION NUMBER(S): [id number] ORDERING CLINICIAN: LUÍS DIXON FINDINGS: Three views of the right ankle Mild degenerative changes present. The ankle mortise and talar dome are intact. No acute fracture or dislocation present. No sizable joint effusion. Probable phleboliths. IMPRESSION: Degenerative changes without acute osseous abnormality identified Electronically signed by: VISHNU SCHNEIDER DO Normal [facility] Blood Pressure Cuff Sizeon 0 12-31-2022 Tobacco use status CPHS b) No [facility] Work Phone: Blood Pressure Cuff Size Adult [facility] Work Phone: Office Visit (Sleep Medicine )on 12-31-2022 Follow-up visit Diagnoses/Problems Assessed Non-smoker (V49.89) (Z78.9) Sleep apnea, unspecified (780.57) (G47.30) Orders Sleep apnea, unspecified Home Sleep Apnea Test; Status:Hold For - Scheduling; Requested for:31Dec2022; Perform:[facility]; Due:31Mar2023;Ordered; For:Sleep apnea, unspecified; Ordered By:Chanelle Estrada; [...] Contact Information: TO SCHEDULE APPOINTMENTS: Adult Central [phone]. FOR ALL OTHER SCHEDULING NEEDS (doctor offices, sleep study, after hours sleep study line): [phone]) Please call my office once you have your sleep study scheduled. Set a follow up appointment with me for 2-3 weeks after you sleep study date, which is about how long it takes to get results. You may schedule this appointment as a virtual visit; please let the office know you would like a virtual visit when you call to schedule. Please call [phone] to get this scheduled. Provider Impressions The following were addressed today: SLEEP APNEA - SUSPECTED -Sleep study ordered: HSAT - [place] -Avoid driving or operating heavy machinery when [...] 2022 ALBUMIN,URINE 17.2 mg/L Normal Not Established [facility] Comment on above: Performed By: #### A LBSP #### [facility] [id number] 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 [address] CREATININE,URINE 104.0 mg/dL Normal 20.0 - 320.0 [facility] Comment on above: Performed By: #### A LBSP #### [facility] [address] [address] CBCon 12-18-2022 Erythrocyte distribution width (RBC) [Ratio] 12.9 % Normal 11.5 - 14.5 [facility] Comment on above: Performed By: #### C BC #### [facility] [address] [place] [address] Hematocrit (Bld) [Volume fraction] 42.2 % Normal 36.0 - 46.0 [facility] Comment on above: Performed By: #### C BC #### [facility] [address] [place] [address] Hemoglobin (Bld) [Mass/Vol] 13.7 g/dL Normal 12.0 - 16.0 [facility] Comment on above: Performed By: #### C BC #### [facility] [address] [place] [address] MCHC (RBC) [Mass/Vol] 32.5 g/dL Normal 32.0 - 36.0 [facility] Comment on above: Performed By: #### C BC #### [facility] [address] [place] [address] MCV (RBC) [Entitic vol] 96 fL Normal 80 - 100 [facility] Comment on above: Performed By: #### C BC #### [facility] [address] [place] [address] NUCLEATED RBC 0.0 /100 WBC Normal 0.0-0.0 [facility] Comment on above: Performed By: #### C BC #### [facility] [address] [place] [address] Platelets (Bld) [#/Vol] 154 10*3/uL Normal 150 - 450 [facility] Comment on above: Performed By: #### C BC #### [facility] [address] [place] [address] RBC 4.38 x10E12/L Normal 4.00 - 5.20 [facility] Comment on above: Performed By: #### C BC #### [facility] [address] [place] [address] WBC (Bld) [#/Vol] 5.1 10*3/uL Normal 4.4 - 11.3 [facility] Comment on above: Performed By: #### C BC #### [facility] [address] [place] [address] COMPREHENSIVE PANELon 2022 Albumin [Mass/Vol] 3.7 g/dL Normal 3.4 - 5.0 [facility] Comment on above: Performed By: #### D SBOP #### [facility] [address] [place] [address] ALP [Catalytic activity/Vol] 130 U/L Normal 33 - 136 [facility] Comment on above: Performed By: #### D SBOP #### [facility] [address] [place] [address] ALT [Catalytic activity/Vol] 29 U/L Normal 7 - 45 [facility] Comment on above: Result Comment: Kenzie ents treated with Sulfasalazine may generate falsely decreased results for ALT. Performed By: #### D SBOP #### [facility] [address] [place] [address] Anion gap [Moles/Vol] 10 mmol/L Normal 10 - 20 [facility] Comment on above: Performed By: #### D SBOP #### [facility] [address] [place] [address] AST [Catalytic activity/Vol] 32 U/L Normal 9 - 39 [facility] Comment on above: Performed By: #### D SBOP #### [place] [address] [place] [address] Bilirubin [Mass/Vol] 1.5 mg/dL High 0.0 - 1.2 [facility] Comment on above: Performed By: #### D SBOP #### [facility] [address] [place] [address] Calcium [Mass/Vol] 9.4 mg/dL Normal 8.6 - 10.6 [facility] Comment on above: Performed By: #### D SBOP #### [facility] [address] [place] [address] Chloride [Moles/Vol] 109 mmol/L High 98 - 107 [facility] Comment on above: Performed By: #### D SBOP #### [facility] [address] [place] [address] Creatinine [Mass/Vol] 0.73 mg/dL Normal 0.50 - 1.05 [facility] Comment on above: Performed By: #### D SBOP #### [facility] [address] [place] [address] eGFR FEMALE >90 Normal >90 [facility] Comment on above: Result Comment: CALC ULATIONS OF ESTIMATED GFR ARE PERFORMED USING THE 2020 CKD-EPI STUDY REFIT EQUATION WITHOUT THE RACE VARIABLE FOR THE IDMS-TRACEABLE CREATININE METHODS. https://jasn.asnjournals.org/content//ASN.053484 5279 Performed By: #### D SBOP #### [facility] [address] [place] [address] Glucose [Mass/Vol] 81 mg/dL Normal 74 - 99 [facility] Comment on above: Performed By: #### D SBOP #### [facility] [address] [place] [address] HCO3 (Bld) [Moles/Vol] 28 mmol/L Normal 21 - 32 [facility] Comment on above: Performed By: #### D SBOP #### [facility] [address] [place] [address] Potassium [Moles/Vol] 3.4 mmol/L Low 3.5 - 5.3 [facility] Comment on above: Performed By: #### D SBOP #### [facility] [address] [place] [address] Protein [Mass/Vol] 6.0 g/dL Low 6.4 - 8.2 [facility] Comment on above: Performed By: #### D SBOP #### [facility] [address] [place] [address] Sodium [Moles/Vol] 144 mmol/L Normal 136 - 145 [facility] Comment on above: Performed By: #### D SBOP #### [facility] [address] [place] [address] Urea nitrogen [Mass/Vol] 11 mg/dL Normal 6 - 23 [facility] Comment on above: Performed By: #### D SBOP #### [facility] [address] [place] [address] HEMOGLOBIN A1Con 12-18-2022 Glucose [Mass/Vol] 103 mg/dL Normal [facility] Comment on above: Performed By: #### H BA1E #### [facility] [address] [place] [address] HbA1c (Bld) [Mass fraction] 5.2 % Normal [facility] Comment on above: Result Comment: Diag nosis of Diabetes-Adults Non-Diabetic: < or = 5.6% Increased risk for developing diabetes: 5.7-6.4% Diagnostic of diabetes: > or = 6.5% . Monitoring of Diabetes Age (y) Therapeutic Goal (%) Adults: >18 <7.0 Pediatrics: 13-18 <7.5 7-12 <8.0 0- 6 7.5-8.5 [place] [employer]. Diabetes Care 33(S1), Oct 2009. Performed By: #### H BA1E #### [facility] [address] [place] [address] LIPID PANEL (CORONARY RISK 2 )on 12-18-2022 Cholesterol [Mass/Vol] 146 mg/dL Normal 0 - 199 [facility] Comment on above: Result Comment: . AGE [...] Performed By: #### D SBOP #### [facility] [address] [place] [address] Cholesterol in HDL [Mass/Vol] 44.6 mg/dL Normal [facility] Comment on above: Result Comment: . AGE VERY LOW LOW NORMAL HIGH 0-19 Y < 35 < 40 40-45 ---- 20-24 Y ---- < 40 >45 ---- >24 Y ---- < 40 40-60 >60 . Performed By: #### D SBOP #### [facility] [address] [place] [address] Cholesterol in LDL [Mass/Vol] 78 mg/dL Normal 0 - 99 [facility] Comment on above: Result Comment: . NEAR BORD AGE DESIRABLE OPTIMAL HIGH HIGH VERY HIGH 0-19 Y 0 - 109 --- 110-129 >/= 130 ---- 20-24 Y 0 - 119 --- 120-159 >/= 160 ---- >24 Y 0 - 99 100-129 130-159 160-189 >/=190 . Performed By: #### D SBOP #### [facility] [address] [place] [address] Cholesterol in VLDL [Mass/Vol] 23 mg/dL Normal 0 - 40 [facility] Comment on above: Performed By: #### D SBOP #### [facility] [address] [place] [address] Cholesterol.total/Cho lesterol in HDL [Mass ratio] 3.3 {ratio} Normal [facility] Comment on above: Result Comment: REF VALUES DESIRABLE < 3.4 HIGH RISK > 5.0 Performed By: #### D SBOP #### [facility] [address] [place] [address] Triglyceride [Mass/Vol] 116 mg/dL Normal 0 - 149 [facility] Comment on above: Result Comment: . AGE [...] dosing. Performed By: #### D SBOP #### [facility] [address] [place] [address] TSH WITH REFLEX TO FREE T4 I F ABNORMALon 12-18-2022 TSH Qn 1.00 m[IU]/L Normal 0.44 - 3.98 [facility] Comment on above: Result Comment: TSH testing is performed using different testing methodology at [facility] than at other [facility]. Direct result comparisons should only be made within the same method. Performed By: #### T HYDS #### [facility] [address] [place] [address] VITAMIN B12on 12-18-2022 Cobalamin (Vitamin B12) [Mass/Vol] 925 pg/mL High 211 - 911 [facility] Comment on above: Performed By: #### V TB12 #### [facility] [address] [place] [address] VITAMIN D, 25-HYDROXYon VITAMIN D, 25-HYDROXY 30 ng/mL Normal [facility] Comment on above: Result Comment: . DEFICIENCY: < 20 NG/ML INSUFFICIENCY: 20-29 NG/ML SUFFICIENCY: 30-100 NG/ML THIS ASSAY ACCURATELY QUANTIFIES THE SUM OF VITAMIN D3, 25-HYDROXY AND VIT D2,25-HYDROXY. Performed By: #### V TDOH #### [facility] [address] [place] [address] Hemoglobin A1Con 12-17-2022 Glucose [Mass/Vol] 103 mg/dL -[facility] Work Phone: HbA1c (Bld) [Mass fraction] 5.2 % [facility] Work Phone: Comment on above: Diagnosis of Diabete s-Adults Non-Diabetic: < or = 5.6% Increased risk for developing diabetes: 5.7-6.4% Diagnostic of diabetes: > or = 6.5%. Monitoring of Diabetes Age (y) Therapeutic Goal (%) Adults: >18 <7.0 Pediatrics: 13-18 <7.5 7-12 <8.0 0- 6 7.5-8.5 [place] [employer]. Diabetes Care 33(S1), Oct 2009. [...] CO2 [Moles/Vol] 28 mmol/L 21 - 32 -[employer] [facility] Work Phone: Creatinine (U) [...] g/dL below low threshold 6.4 - 8.2 [facility] Work Phone: Sodium [Moles/Vol] 144 mmol/L 136 - 145 [facility] Work Phone: TSH Qn 1.00 m[IU]/L See Below [facility] Work Phone: Comment on above: Reference Range: 0.4 4 - 3.98 TSH testing is performed using different testing methodology at [facility] than at other [facility]. Direct result comparisons should only be made within the same method. Urea nitrogen [Mass/Vol] 11 mg/dL 6 - 23 [facility] Work Phone: Laboratory - Hematology and Cell countson 12-17-2022 Erythrocyte distribution width (RBC) [Ratio] 12.9 % See Below [facility] Work Phone: Comment on above: Reference Range: 11. 5 - 14.5 Hematocrit (Bld) [Volume fraction] 42.2 % See Below [facility] Work Phone: Comment on above: Reference Range: 36. 0 - 46.0 Hemoglobin (Bld) [Mass/Vol] 13.7 g/dL See Below [facility] Work Phone: Comment on above: Reference Range: 12. 0 - 16.0 MCHC (RBC) [Mass/Vol] 32.5 g/dL See Below [facility] Work Phone: Comment on above: Reference Range: 32. 0 - 36.0 MCV (RBC) [Entitic vol] 96 fL 80 - 100 [facility] Work Phone: Platelets (Bld) [#/Vol] 154 10*3/uL 150 - 450 [facility] Work Phone: RBC (Bld) [#/Vol] 4.38 {x10E12/L} See Below [facility] Work Phone: Comment on above: Reference Range: 4.0 0 - 5.20 WBC (Bld) [#/Vol] 5.1 10*3/uL 4.4 - 11.3 [facility] Work Phone: Lipid Panelon 12-17-2022 Cholesterol [Mass/Vol] 146 mg/dL 0 - 199 [facility] Work Phone: Comment [...] dosing. Cholesterol in HDL [Mass/Vol] 44.6 mg/dL [facility] Work Phone: Comment on above: . AGE VERY LOW LOW N ORMAL HIGH 0-19 Y < 35 < 40 40-45 ---- 20- 24 Y ---- < 40 >45 ---- >24 Y ---- < 40 40-60 >60. Cholesterol in LDL [Mass/Vol] 78 mg/dL 0 - 99 [facility] Work Phone: Comment on above: . NEAR BORD AGE GERALD RABLE OPTIMAL HIGH HIGH VERY HIGH 0-19 Y 0 - 109 --- 110-129 >/= 130 ---- 20-24 Y 0 - 119 --- 120-159 >/= 160 ---- >24 Y 0 - 99 100-129 130-159 160-189 >/=190. Cholesterol.total/Cho lesterol in HDL [Mass ratio] 3.3 {ratio} [facility] Work Phone: Comment on above: REF VALUESDESIRABLE < 3.4HIGH RISK > 5.0 Triglyceride [Mass/Vol] 116 mg/dL 0 - 149 [facility] Work Phone: Comment [...] Lipid Panel 23 mg/dL 0 - 40 [facility] Work Phone: No Panel Informationon 12-17 0.0 {/100_WBC} 0.0-0.0 [facility] Work Phone: >90 >90 [facility] Work Phone: Comment on above: CALCULATIONS OF ARMOND MATED GFR ARE PERFORMED USING THE 2020 CKD-EPI STUDY REFIT EQUATION WITHOUT THE RACE VARIABLE FOR THE IDMS-TRACEABLE CREATININE METHODS.https://jasn.asnjournals.org/content// N.6598717166 Vitamin B12, Serumon 023 Cobalamin (Vitamin B12) [Mass/Vol] 925 pg/mL above high threshold 211 - 911 [facility] Work Phone: Vitamin D 25-Hydroxyon 12-17 25-hydroxyvitamin D3 [Mass/Vol] 30 ng/mL [facility] Work Phone: Comment [...] initial encounter; COLT = N; Sent To: [id number]- [place], Rib injury Xray Ribs Unilateral with PA Cxr 3 View; Status:Resulted - Requires Verification; Done: 20Oct2022 01:39PM Performed:[facility]; Due:18Jan2023;Ordered; Stat; For:Rib injury; Ordered By:Laya [...] 2 days ago she was taking down [place] lights when she tripped and fell into [...] S29.9XXA: Rib injury. COMPARISON: 08/01/2020 ACCESSION NUMBER(S): [id number] ORDERING CLINICIAN: LAYA NICHOLS TECHNIQUE: Four views [...] Electronically signed by: MICHAEL ZIMMERMAN MD Normal [facility] Radiologyon 10-20-2022 XR Ribs - left 3 Views Normal [facility] Work Phone: Tobacco Screening.on 023 Adult depression screening assessment No [facility] Work Phone: Fall risk assessment b) One or more fall s in the last year [facility] Work Phone: Tobacco use status CPHS b) [...] VITALSon 09-03-2022 Adult depression screening assessment No [facility] Work Phone: Pharm D Noteon 08-19-2022 Pharm D Note No report was sent Normal [facility] CLOST DIFF. TOXIN, PCRon C. difficile toxin genes THANIA+probe Ql (Stl) Not detected See Below [facility] Work Phone: Comment [...] 022 Lactoferrin IA Ql (Stl) Negative Negative [facility] Work Phone: Comment on above: A negative result do es not exclude the presence of intestinal inflammation.Performed By: ERINN [address] [place], [place] [address]Mjanhguzry Director: Leonardo Roberts MD, PhD No Panel Informationon 04-21 Negative Negative [facility] Work Phone: Comment on above: Performed By: ERINN [email or web address] [place], [place] [address]Ouoclrjved Director: Leonardo Roberts MD, PhD SOURCE: INTERPRETIVE [...] Microsporidia. For additional test information refer to [employer] consult, [email or web address] By: [address] [id number] Director: Leonardo Roberts MD, PhD Occult Blood, Stoolon 2021 Hemoglobin.gastrointe stinal Ql (Stl) Negative Negative [facility] Work Phone: STOOL PATHOGEN PCR PANELon 0 04-21-2022 Campylobacter sp DNA.diarrheagenic THANIA+probe Ql (Stl) Not detected See Below [facility] Work Phone: Comment on above: Reference Range: NOT DETECTED E. coli stx1 gene THANIA+probe Ql (Unsp spec) Not detected See Below [facility] Work Phone: Comment on above: Reference Range: NOT DETECTED E. coli stx2 gene THANIA+probe Ql (Unsp spec) Not detected See Below [facility] Work Phone: Comment on above: Reference Range: NOT DETECTED Norovirus genogroup I and II RNA THANIA+probe Nom (Stl) Not detected See Below [facility] Work Phone: Comment on above: Reference Range: NOT DETECTED Rotavirus RNA THANIA+probe Nom (Stl) Not detected See Below [facility] Work Phone: Comment on above: Reference Range: [...] Ql (Unsp spec) Not detected See Below [facility] Work Phone: Comment on above: Reference Range: NOT DETECTED Vibrio sp DNA THANIA+probe Nom (Unsp spec) Not detected See Below [facility] Work Phone: Comment on above: Reference Range: NOT DETECTED Yersinia sp DNA THANIA+probe Nom (Unsp spec) Not detected See Below [facility] Work Phone: Comment on above: SOURCE: Reference Ra nge: NOT DETECTED STOOL PATHOGEN PCR PANEL Not detected See Below [facility] Work Phone: Comment on above: Reference Range: NOT DETECTED CLOST DIFF. TOXIN, PCRon C. difficile toxin genes THANIA+probe Ql (Stl) Not detected See Below [facility] Work Phone: Comment on above: Reference Range: [...] dye [Mass/Vol] 3.9 g/dL 3.4 - 5.0 [facility] Work Phone: ALP [Catalytic activity/Vol] 96 U/L 33 - 136 [facility] Work Phone: ALT With P-5'-P [Catalytic activity/Vol] 38 U/L 7 - 45 [facility] Work Phone: Comment on above: Patients treated wit h Sulfasalazine may generate falsely decreased results for ALT. Anion gap [Moles/Vol] 12 mmol/L 10 - 20 [facility] Work Phone: AST With P-5'-P [Catalytic activity/Vol] 44 U/L above high threshold 9 - 39 [facility] Work Phone: Bilirubin [Mass/Vol] 1.0 mg/dL 0.0 - 1.[address] [facility] Work Phone: Calcium [Mass/Vol] 9.0 mg/dL 8.6 - 10.6 -[facility] Work Phone: Chloride [Moles/Vol] 113 mmol/L above high threshold 98 - 107 [facility] Work Phone: CO2 [Moles/Vol] 21 mmol/L 21 - 32 [facility] Work Phone: Creatinine [Mass/Vol] 1.04 mg/dL See Below [facility] Work Phone: Comment on above: Reference Range: 0.5 0 - 1.05 Glucose [Mass/Vol] 122 mg/dL above high threshold 74 - 99 [facility] Work Phone: Potassium [Moles/Vol] 3.0 mmol/L below low threshold 3.5 - 5.3 [facility] Work Phone: Protein [Mass/Vol] 6.4 g/dL 6.4 - 8.2 [facility] Work Phone: Sodium [Moles/Vol] 143 mmol/L 136 - 145 [facility] Work Phone: Urea nitrogen [Mass/Vol] 18 mg/dL 6 - 23 [facility] Work Phone: Magnesium, Serumon 2 Magnesium [Mass/Vol] 1.98 mg/dL See Below [facility] Work Phone: Comment on above: Reference Range: 1.6 0 - 2.40 No Panel Informationon 04-01 60 {mL/min/1.73m2} >90 [facility] Work Phone: Comment on above: CALCULATIONS OF ARMOND MATED GFR ARE PERFORMED USING THE 2020 CKD-EPI STUDY REFIT EQUATION WITHOUT THE RACE VARIABLE FOR THE IDMS-TRACEABLE CREATININE METHODS.https://jasn.asnjournals.org/content/early/ N.4191360521 CLOST DIFF. TOXIN, PCRon C. difficile toxin genes THANIA+probe Ql (Stl) Canceled [facility] Work Phone: Comment on above: This assay [...] CLOST DIFF. TOXIN, PCR Canceled See Below [facility] Work Phone: Comment on above: Reference Range: Not Detected STOOL PATHOGEN PCR PANELon 0 03-25-2022 Campylobacter sp DNA.diarrheagenic THANIA+probe Ql (Stl) Not detected See Below [facility] Work Phone: Comment on above: Reference Range: NOT DETECTED E. coli stx1 gene THANIA+probe Ql (Unsp spec) Not detected See Below [facility] Work Phone: Comment on above: Reference Range: NOT DETECTED E. coli stx2 gene THANIA+probe Ql (Unsp spec) Not detected See Below [facility] Work Phone: Comment on above: Reference Range: NOT DETECTED Norovirus genogroup I and II RNA THANIA+probe Nom (Stl) Not detected See Below [facility] Work Phone: Comment on above: Reference Range: NOT DETECTED Rotavirus RNA THANIA+probe Nom (Stl) Not detected See Below [facility] Work Phone: Comment on above: Reference Range: [...] Ql (Unsp spec) Not detected See Below [facility] Work Phone: Comment on above: Reference Range: NOT DETECTED Vibrio sp DNA THANIA+probe Nom (Unsp spec) Not detected See Below [facility] Work Phone: Comment on above: Reference Range: NOT DETECTED Yersinia sp DNA THANIA+probe Nom (Unsp spec) Not detected See Below [facility] Work Phone: Comment on above: SOURCE: Reference Ra nge: NOT DETECTED STOOL PATHOGEN PCR PANEL Not detected See Below [facility] Work Phone: Comment on above: Reference Range: NOT DETECTED Tobacco Screening.on 022 Fall risk assessment a) No falls within the last year [facility] [employer] Work Phone: Tobacco use status CPHS b) No [facility] [employer] Work Phone: Hemoglobin A1Con 01-08-2022 Glucose [Mass/Vol] 117 mg/dL [facility] Work Phone: HbA1c (Bld) [Mass fraction] 5.7 % Abnormal [facility] Work Phone: Comment on above: Diagnosis of Diabete s-Adults Non-Diabetic: < or = 5.6% Increased risk for developing diabetes: 5.7-6.4% Diagnostic of diabetes: > or = 6.5%. Monitoring of Diabetes Age (y) Therapeutic Goal (%) Adults: >18 <7.0 Pediatrics: 13-18 <7.5 7-12 <8.0 0- 6 7.5-8.5 [place] [employer]. Diabetes Care 33(S1), Oct 2009. Laboratory - Chemistry and C hemistry - challengeon 01-08-2022 Albumin BCP dye [Mass/Vol] 3.9 g/dL 3.4 - 5.0 [facility] Work Phone: Albumin Ql (U) 8.8 mg/L See Below [facility] Work Phone: Comment on above: Reference Range: Not Established Albumin/Creatinine DL <= 20 mg/L (U) [Mass ratio] 8.8 {ug/mg_crt} 0.0 - 30.0 [facility] Work Phone: ALP [Catalytic activity/Vol] 85 U/L 33 - 136 [facility] Work Phone: ALT With P-5'-P [Catalytic activity/Vol] 23 U/L 7 - 45 [facility] Work Phone: Comment on above: Patients treated wit h Sulfasalazine may generate falsely decreased results for ALT. Anion gap [Moles/Vol] 13 mmol/L 10 - 20 [facility] Work Phone: AST With P-5'-P [Catalytic activity/Vol] 27 U/L 9 - 39 [facility] Work Phone: Bilirubin [Mass/Vol] 1.1 mg/dL 0.0 - 1.2 -I [facility] Work Phone: [phone] Calcium [Mass/Vol] 9.8 mg/dL 8.6 - 10.6 [facility] Work Phone: Chloride [Moles/Vol] 110 mmol/L above high threshold 98 - 107 [facility] Work Phone: CO2 [Moles/Vol] 25 mmol/L 21 - 32 [facility] Work Phone: Creatinine (Body fld) [Mass/Vol] 100.5 mg/dL [facility] Work Phone: Comment on above: A urine creatinine r esult >= 20 mg/dL is considered valid without suspicion of dilution. Samples with results below this range will automatically reflex to specific gravity testing to verify specimen integrity. Creatinine (U) [Mass/Vol] 99.6 mg/dL See Below [facility] Work Phone: Comment on above: Reference Range: 20. 0 - 320.0 Creatinine [Mass/Vol] 0.81 mg/dL See Below [facility] Work Phone: Comment on above: Reference Range: 0.5 0 - 1.05 Glucose [Mass/Vol] 91 mg/dL 74 - 99 [facility] Work Phone: Potassium [Moles/Vol] 3.7 mmol/L 3.5 - 5.3 [facility] Work Phone: Protein [Mass/Vol] 6.5 g/dL 6.4 - 8.2 [facility] Work Phone: Sodium [Moles/Vol] 144 mmol/L 136 - 145 [facility] Work Phone: TSH Qn 1.34 m[IU]/L See Below [facility] Work Phone: Comment on above: Reference Range: 0.4 4 - 3.98 TSH testing is performed using different testing methodology at [facility] than at other [facility]. Direct result comparisons should only be made within the same method. Urea nitrogen [Mass/Vol] 17 mg/dL 6 - 23 [facility] Work Phone: Laboratory - Drug toxicology on 01-08-2022 1-Hydroxymidazolam Confirm (U) [Mass/Vol] <25 Cutoff <25 [facility] Work Phone: 8-Kaubyupeqr-6,5-Dime thyl-3,3-Diphenylpyrr olidine (EDDP) Confirm (U) [Mass/Vol] <25 Cutoff <25 [facility] Work Phone: Comment on above: The performance [...] (6-WAQAR) Confirm (U) [Mass/Vol] <25 Cutoff <25 [facility] Work Phone: 7-Aminoclonazepam Confirm (U) [Mass/Vol] <25 Cutoff <25 [facility] Work Phone: Alpha hydroxyalprazolam Confirm (U) [Mass/Vol] <25 Cutoff <25 [facility] Work Phone: ALPRAZolam Confirm (U) [Mass/Vol] <25 Cutoff <25 [facility] Work Phone: Amphetamines Screen Ql (U) Negative NEGATIVE [facility] Work Phone: Comment on above: CUTOFF LEVEL: 500 NG /ML Cross-reactivity has been reported with high concentrations of the following drugs: buproprion, chloroquine, chlorpromazine, ephedrine, mephentermine, fenfluramine, phentermine, phenylpropanolamine, pseudoephedrine, and propranolol. Barbiturates Screen Ql (U) Negative NEGATIVE [facility] Work Phone: Comment on above: CUTOFF LEVEL: 200 NG /ML Benzoylecgonine Screen Ql (U) Negative NEGATIVE [facility] Work Phone: Comment on above: CUTOFF LEVEL: 150 NG /ML Cannabinoids Screen Ql (U) Negative NEGATIVE [facility] Work Phone: Comment on above: CUTOFF LEVEL: 50 NG/ ML chlordiazePOXIDE Confirm (U) [Mass/Vol] <25 Cutoff <25 [facility] Work Phone: clonazePAM Confirm (U) [Mass/Vol] <25 Cutoff <25 [facility] Work Phone: Codeine Confirm (U) [Mass/Vol] <50 Cutoff <50 [facility] Work Phone: diazePAM Confirm (U) [Mass/Vol] <25 Cutoff <25 [facility] Work Phone: fentaNYL [...] Confirm (U) [Mass/Vol] <25 Cutoff <25 -[facility] Work Phone: oxyCODONE Confirm (U) [Mass/Vol] <25 Cutoff <25 [facility] Work Phone: oxyMORphone Confirm (U) [...] testing. Phencyclidine Ql (U) Negative NEGATIVE MP-[facility] Work Phone: Comment on above: CUTOFF LEVEL: 25 NG/ ML Cross-reactivity has been reported with dextromethorphan. Temazepam Confirm (U) [Mass/Vol] <25 Cutoff <25 -[facility] Work Phone: Comment on above: [...] Confirm (U) [Mass/Vol] <50 Cutoff <50 -[facility] Work Phone: [phone] Zolpidem (U) [Mass/Vol] <25 Cutoff <25 -[facility] Work Phone: Laboratory - Hematology and Cell countson 01-08-2022 Erythrocyte distribution width (RBC) [Ratio] 14.5 % See Below [facility] Work Phone: Comment on above: Reference Range: 11. 5 - 14.5 Hematocrit (Bld) [Volume fraction] 39.8 % See Below [facility] Work Phone: Comment on above: Reference Range: 36. 0 - 46.0 Hemoglobin (Bld) [Mass/Vol] 12.1 g/dL See Below [facility] Work Phone: Comment on above: Reference Range: 12. 0 - 16.0 MCHC (RBC) [Mass/Vol] 30.4 g/dL below low threshold See Below [facility] Work Phone: Comment on above: Reference Range: 32. 0 - 36.0 MCV (RBC) [Entitic vol] 92 fL 80 - 100 [facility] Work Phone: Platelets (Bld) [#/Vol] 182 10*3/uL 150 - 450 [facility] Work Phone: RBC (Bld) [#/Vol] 4.33 {x10E12/L} See Below [facility] Work Phone: Comment on above: Reference Range: 4.0 0 - 5.20 WBC (Bld) [#/Vol] 4.9 10*3/uL 4.4 - 11.3 [facility] Work Phone: Lipid Panelon 01-08-2022 Cholesterol [Mass/Vol] 167 mg/dL 0 - 199 [facility] Work Phone: Comment on above: . AGE [...] dosing. Cholesterol in HDL [Mass/Vol] 53.7 mg/dL [facility] Work Phone: Comment on above: . AGE VERY LOW LOW N ORMAL HIGH 0-19 Y < 35 < 40 40-45 ---- 20- 24 Y ---- < 40 >45 ---- >24 Y ---- < 40 40-60 >60. Cholesterol in LDL [Mass/Vol] 84 mg/dL 0 - 99 [facility] Work Phone: Comment on above: . NEAR BORD AGE GERALD RABLE OPTIMAL HIGH HIGH VERY HIGH 0-19 Y 0 - 109 --- 110-129 >/= 130 ---- 20-24 Y 0 - 119 --- 120-159 >/= 160 ---- >24 Y 0 - 99 100-129 130-159 160-189 >/=190. Cholesterol.total/Cho lesterol in HDL [Mass ratio] 3.1 {ratio} [facility] Work Phone: Comment on above: REF VALUESDESIRABLE < 3.4HIGH RISK > 5.0 Triglyceride [Mass/Vol] 145 mg/dL 0 - 149 [facility] Work Phone: Comment on above: . AGE [...] Lipid Panel 29 mg/dL 0 - 40 [facility] Work Phone: No Panel Informationon 01-08 0.0 {/100_WBC} 0.0-0.0 [facility] Work Phone: 81 {mL/min/1.73m2} >90 -[facility] Work Phone: Comment on above: CALCULATIONS OF ARMOND MATED GFR ARE PERFORMED USING THE 2020 CKD-EPI STUDY REFIT EQUATION WITHOUT THE RACE VARIABLE FOR THE IDMS-TRACEABLE CREATININE METHODS.https://jasn.asnjournals.org/content/early/ N.1643500480 SEE BELOW [facility] Work Phone: Comment [...] the laboratory medical directors. <25 Cutoff <25 [facility] Work Phone: Comment on above: The performance [...] 01-08-2022 [facility] Culture exhibits no growth. [facility] Comment on above: Performed By: #### M [id number] #### [facility] [address] [place], [place], [id number] Vitamin B12, Serumon 022 Cobalamin (Vitamin B12) [Mass/Vol] 991 pg/mL above high threshold 211 - 911 [facility] Work Phone: Vitamin D 25-Hydroxyon 01-08 25-hydroxyvitamin D3 [Mass/Vol] 37 ng/mL [facility] Work Phone: Comment on above: .DEFICIENCY: < 20 NG /MLINSUFFICIENCY: 20-29 NG/MLSUFFICIENCY: 30-100 NG/MLTHIS ASSAY ACCURATELY QUANTIFIES THE SUM OFVITAMIN D3, 25-HYDROXY AND VIT D2,25-HYDROXY. Tobacco Screening.on Fall risk assessment a) No falls within the last year [facility] Work Phone: Tobacco use status CPHS b) No [facility] Work Phone: STOOL PATHOGEN PCR PANELon 10-25-2020 Campylobacter sp DNA.diarrheagenic THANIA+probe Ql (Stl) Detected Critically abnormal See Below [facility] Work Phone: Comment on above: Reference Range: NOT DETECTEDCAMPY CALLED TO AMEENA SAWANT, 08/26/2021 10:04 E. coli stx1 gene THANIA+probe Ql (Unsp spec) Not detected See Below [facility] Work Phone: Comment on above: Reference Range: NOT DETECTED E. coli stx2 gene THANIA+probe Ql (Unsp spec) Not detected See Below [facility] Work Phone: Comment on above: Reference Range: NOT DETECTED Norovirus genogroup I and II RNA THANIA+probe Nom (Stl) Not detected See Below [facility] Work Phone: Comment on above: Reference Range: NOT DETECTED Rotavirus RNA THANIA+probe Nom (Stl) Not detected See Below [facility] Work Phone: Comment on above: Reference Range: [...] Ql (Unsp spec) Not detected See Below [facility] Work Phone: Comment on above: Reference Range: NOT DETECTED Vibrio sp DNA THANIA+probe Nom (Unsp spec) Not detected See Below [facility] [employer] Work Phone: Comment on above: Reference Range: NOT DETECTED Yersinia sp DNA THANIA+probe Nom (Unsp spec) Not detected See Below [facility] [employer] Work Phone: Comment on above: SOURCE: Reference Ra nge: NOT DETECTED STOOL PATHOGEN PCR PANEL Not detected See Below [facility] Work Phone: Comment on above: Reference Range: NOT DETECTED GASTROINTESTINAL PCR PANELon 07-25-2021 GASTROINTESTINAL PCR PANEL GASTROINTESTINAL PCR PANEL --> Status: F POSITIVE: Campylobacter. _ The [employer] [place] Gastrointestinal PCR Panel can detect the following targets: Campylobacter, Plesiomonas shigelloides, Salmonella, Vibrio species, Vibrio cholerae, Yersinia enterocolitica, Shiga toxin-producing E coli (STEC) including E coli O157, Enterotoxigenic E coli (ETEC), Shigella/Enteroinvasive E coli (EIEC), Cryptosporidium, Cyclospora cayetanensis, Entamoeba histolytica, Giardia lamblia, Adenovirus F 40/41, Astrovirus, Norovirus GI/GII, Rotavirus A, Sapovirus _ The [employer] [place] Gastrointestinal PCR Panel can detect the following targets: Campylobacter, Plesiomonas shigelloides, Salmonella, Vibrio species, Vibrio cholerae, Yersinia enterocolitica, Shiga toxin-producing E coli (STEC) including E coli O157, Enterotoxigenic E coli (ETEC), Shigella/Enteroinvasive E coli (EIEC), Cryptosporidium, Cyclospora cayetanensis, Entamoeba histolytica, Giardia lamblia, Adenovirus F 40/41, Astrovirus, Norovirus GI/GII, Rotavirus A, Sapovirus Abnormal [facility] Comment on above: Performed By: #### B FGI #### [facility] [address] [place] [id number] Gastrointestinal Panel, Mole cularOrdered By: Rivera Tan on 07-25-2021 Gastrointestinal PCR Panel POSITIVE: Campylobacter. _ The [employer] [place] Gastrointestinal PCR Panel can detect the following targets: Campylobacter, Plesiomonas shigelloides, Salmonella, Vibrio species, Vibrio cholerae, Yersinia enterocolitica, Shiga toxin-producing E coli (STEC) including E coli O157, Enterotoxigenic E coli (ETEC), Shigella/Enteroinvasive E coli (EIEC), Cryptosporidium, Cyclospora cayetanensis, Entamoeba histolytica, Giardia lamblia, Adenovirus F 40/41, Astrovirus, Norovirus GI/GII, Rotavirus A, Sapovirus Abnormal [facility] Work Phone: 1 Interpretation and review of laboratory results Abnormal [facility] Work Phone: 1 Test Performed by [facility] [employer] [facility], [address] [place] [id number] [facility] Work Phone: 1 [employer] Work Phone: 1 Add On Lab TestOrdered By: Chano Tan on 07-24-2021 Add On Accepted [facility] Work Phone: Comment on above: Specimen available & acceptable for analysis. Test Performed by [facility], [address] [place], [place] [address] Added to original [id number] [facility] Work Phone: [facility] Work Phone: 1 Add on test from HISon 07-24 Add on test from HIS Accepted Normal [facility] [employer] [facility] Comment on above: Order Comment: Added to original [id number] Result Comment: Spec imen available & acceptable for analysis. Performed By: #### A DDON #### [facility] [employer] [address] [place] [address] CBC WITH AUTO DIFFERENTIALOr dered By: Rivera Tan on 07-24-2021 Absolute Baso # 0.0 10*3/uL 0.0 - 0.2 10*3/uL [facility] Work Phone: [phone] Absolute Neut # 6.4 10*3/uL 1.8 - 7.0 10*3/uL [facility] Work Phone: Basophils/100 WBC (Bld) 0.4 % 0.0 - 2.0 % [facility] Work Phone: 1 Eosinophils (Bld) [#/Vol] 0.0 10*3/uL 0.0 - 0.5 10*3/uL [facility] Work Phone: 1 22 Eosinophils/100 WBC (Bld) 0.5 % Low 1.0 - 6.0 % [facility] Work Phone: Granulocytes/100 WBC (Bld) 76.0 % 40.0 - 80.0 % [facility] Work Phone: 1 Hematocrit (Bld) [Volume fraction] 44.4 % 35.0 - 47.0 % [facility] Work Phone: Hemoglobin.gastrointe stinal spec 1 Ql (Stl) 14.6 g/dL 11.7 - 16.0 g/dL [facility] Work Phone: Interpretation and review of laboratory results Abnormal [employer] Work Phone: Lymphocytes (Bld) [#/Vol] 1.4 10*3/uL 1.0 - 4.3 10*3/uL [facility] Work Phone: 1 22 Lymphocytes/100 WBC (Bld) 16.0 % Low 20.0 - 40.0 % [facility] Work Phone: MCH (RBC) [Entitic mass] 28.1 pg 26.0 - 34.0 pg [facility] Work Phone: MCHC (RBC) [Mass/Vol] 32.9 % 32.0 - 36.0 % [facility] Work Phone: MCV (RBC) [Entitic vol] 85.5 fL 79.0 - 98.0 fL [facility] Work Phone: Monocytes (Bld) [#/Vol] 0.6 10*3/uL 0.0 - 0.8 10*3/uL [facility] Work Phone: 22 Monocytes/100 WBC (Bld) 7.1 % 2.0 - 10.0 % [facility] Work Phone: Platelet distribution width (Bld) [Ratio] 15.7 % High 11.5 - 14.5 % [facility] Work Phone: [phone] Platelet mean volume (Bld) [Entitic vol] 6.7 fL Low 7.4 - 10.4 fL [facility] Work Phone: 1 Platelets (Bld) [#/Vol] 274 10*3/uL 140 - 440 10*3/uL [facility] Work Phone: 1 RBC (Bld) [#/Vol] 5.20 10*6/uL 3.80 - 5.2 0 10*6/uL [facility] Work Phone: 1 WBC (Bld) [#/Vol] 8.5 10*3/uL 3.6 - 10.7 10*3/uL [facility] Work Phone: 1 Test Performed by [facility], [address] [place], [place] [id number] [place], [place] [address] Work Phone: 1 [facility] Work Phone: 1 Comp Metabolic Panelon 07-24 ALP [Catalytic activity/Vol] 114 U/L Normal 38-126 [facility] Comment on above: Result Comment: slig ht hemolysis Performed By: #### H EMDF, CMP3, MG3 #### [facility] [address] [place] [place] [address] ALT [Catalytic activity/Vol] 22 U/L Normal 0-34 [facility] Comment on above: Result Comment: The ALT test is performed by an updated assay method. Please note that the reference intervals have been changed and are now sex specific. Performed By: #### H EMDF, CMP3, MG3 #### [facility] [address] [place] [address] Calcium [Mass/Vol] 8.7 mg/dL Normal 8.4-10.4 [facility] Comment on above: Performed By: #### H EMDF, CMP3, MG3 #### [facility] [address] [place] [address] Glucose [Mass/Vol] 126 mg/dL High 70-100 [facility] Comment on above: Performed By: #### H EMDF, CMP3, MG3 #### [facility] [address] [place] [address] Urea nitrogen [Mass/Vol] 14 mg/dL Normal 9-20 [facility] Comment on above: Performed By: #### H YURY AMAYA3, MG3 #### [facility] [address] [place] [address] Anion gap [Moles/Vol] 8 mmol/L Normal 3-13 [facility] Comment on above: Performed By: #### H JOSE LUIS CMP3, MG3 #### [facility] [address] [place] [address] AST [Catalytic activity/Vol] 45 U/L Normal 15-46 [facility] Comment on above: Result Comment: slig ht hemolysis Performed By: #### H JOSE LUIS CMP3, MG3 #### [facility] [address] [place] [address] Bilirubin [Mass/Vol] 1.4 mg/dL High 0.2-1.3 [facility] Comment on above: Performed By: #### H JOSE LUIS CMP3, MG3 #### [facility] [address] [place] [address] CO2 [Moles/Vol] 19 mmol/L Low 22-30 [facility] Comment on above: Performed By: #### H JOSE LUIS, CMP3, MG3 #### [facility] [address] [place] [address] Creatinine [Mass/Vol] 0.91 mg/dL Normal 0.52-1.25 [facility] Comment on above: Performed By: #### H JOSE LUIS, CMP3, MG3 #### [facility] [address] [place] [address] GFR/1.73 sq M.predicted among blacks MDRD (S/P/Bld) [Vol rate/Area] 77.7 mL/min/{1.73_m2} Normal >60 [facility] Comment on above: Performed By: #### H EMDF, CMP3, MG3 #### [facility] [address] [place] [address] GFR/1.73 sq M.predicted among non-blacks MDRD (S/P/Bld) [Vol rate/Area] 67.0 mL/min/{1.73_m2} Normal >60 [facility] Comment on above: Result Comment: KDIG [...] By: #### H YURY AMAYA3, MG3 #### [facility] [address] [facility] [place] [address] Protein [Mass/Vol] 7.5 g/dL Normal 6.3-8.2 [facility] Comment on above: Result Comment: slig ht hemolysis Performed By: #### H YURY AMAYA3, MG3 #### [facility] [address] [place] [address] Chloride [Moles/Vol] 113 mmol/L High 98-107 [facility] Comment on above: Performed By: #### H YURY AMAYA3, MG3 #### [facility] [address] [place] [address] Potassium [Moles/Vol] 4.8 mmol/L Normal 3.5-5.1 [facility] Comment on above: Result Comment: Slig ht hemolysis Performed By: #### H YURY AMAYA3, MG3 #### [facility] [address] [place] [address] Sodium [Moles/Vol] 139 mmol/L Normal 135-145 [facility] Comment on above: Performed By: #### H YURY AMAYA3, MG3 #### [facility] [employer] [facility] [address] [place] [address] Albumin [Mass/Vol] 4.1 g/dL Normal 3.5-5.0 [facility] Comment on above: Result Comment: slig ht hemolysis Performed By: #### H EMDF, CMP3, MG3 #### [facility] [employer] [facility] [address] [place] [address] Comprehensive Metabolic Pane lOrdered By: Rivera Tan on 07-24-2021 Albumin [Mass/Vol] 4.1 g/dL 3.5 - 5.0 g/dL [employer] Work Phone: [phone] Comment on above: slight hemolysis ALP (Bld) [Catalytic activity/Vol] 114 U/L 38 - 126 U/L [employer] Work Phone: [phone] Comment on above: slight hemolysis ALT [Catalytic activity/Vol] 22 U/L 0 - 34 U/L [employer] Work Phone: [phone] Comment on above: The ALT test is perf ormed by an updated assay method. Please note that the reference intervals have been changed and are now sex specific. Anion gap [Moles/Vol] 8 mmol/L 3 - 13 mmol/L [facility] Work Phone: [phone] AST [Catalytic activity/Vol] 45 U/L 15 - 46 U/L [facility] Work Phone: [phone] Comment on above: slight hemolysis Bilirubin [Mass/Vol] 1.4 mg/dL High 0.2 - 1 .3 mg/dL [facility] Work Phone: [phone] Calcium [Mass/Vol] 8.7 mg/dL 8.4 - 10. 4 mg/dL [facility] Work Phone: [phone] Chloride [Moles/Vol] 113 mmol/L High 98 - 10 7 mmol/L [facility] Work Phone: [phone] CO2 [Moles/Vol] 19 mmol/L Low 22 - 30 mmol/L [facility] Work Phone: [phone] Creatinine [Mass/Vol] 0.91 mg/dL 0.52 - 1.25 mg/dL [facility] Work Phone: [phone] EGFR IF NonAfrican [place] 67.0 mL/min >60 [facility] Work Phone: [phone] Comment on above: KDIGO guidelines pro vide [...] fraction] 7.5 g/dL 6.3 - 8.2 g/dL [facility] Work Phone: [phone] Comment on above: slight hemolysis GFR/1.73 sq M.predicted among blacks MDRD (S/P/Bld) [Vol rate/Area] 77.7 mL/min/{1.73_m2} >60 [facility] Work Phone: [phone] Glucose [Mass/Vol] 126 mg/dL High 70 - 100 mg/dL [facility] Work Phone: [phone] Interpretation and review of laboratory results Abnormal [facility] Work Phone: [phone] Potassium [Moles/Vol] 4.8 mmol/L 3.5 - 5.1 mmol/L [facility] Work Phone: [phone] Comment on above: Slight hemolysis Sodium [Moles/Vol] 139 mmol/L 135 - 145 mmol/L [facility] Work Phone: [phone] Urea nitrogen (BldV) [Mass/Vol] 14 mg/dL 9 - 20 mg/dL [facility] Work Phone: [phone] Test Performed by [facility], [facility] [address] , [place], [place] [address] [facility] Work Phone: [phone] [facility] Work Phone: Hemogram w/ Autodiffon 07-24 Abs Baso Cnt 0.0 10*3/uL Normal 0.0-0.2 [facility] Comment on above: Performed By: #### H EMDF, CMP3, MG3 #### [facility] [address] [place] [address] Abs Neutrophile Cnt 6.4 10*3/uL Normal 1.8-7.0 [facility] Comment on above: Performed By: #### H EMDF, CMP3, MG3 #### [facility] [address] [place] [address] Basophils/100 WBC (Bld) 0.4 % Normal 0.0-2.0 [facility] Comment on above: Performed By: #### H EMDF, CMP3, MG3 #### [facility] [address] [place] [address] Eosinophils (Bld) [#/Vol] 0.0 10*3/uL Normal 0.0-0.5 [facility] Comment on above: Performed By: #### H EMDF, CMP3, MG3 #### [facility] [address] [place] [address] Eosinophils/100 WBC (Bld) 0.5 % Low 1.0-6.0 [facility] Comment on above: Performed By: #### H EMDF, CMP3, MG3 #### [facility] [address] [place] [address] Erythrocyte distribution width (RBC) [Ratio] 15.7 % High 11.5-14.5 [facility] Comment on above: Performed By: #### H EMDF, CMP3, MG3 #### [facility] [address] [place] [address] Granulocytes/100 WBC (Bld) 76.0 % Normal 40.0-80.0 [facility] Comment on above: Performed By: #### H EMDF, CMP3, MG3 #### [facility] [address] [place] [address] Hematocrit (Bld) [Volume fraction] 44.4 % Normal 35.0-47.0 [facility] Comment on above: Performed By: #### H YURY AMAYA3, MG3 #### [facility] [address] [place] [address] Hemoglobin (Bld) [Mass/Vol] 14.6 g/dL Normal 11.7-16.0 [facility] Comment on above: Performed By: #### H YURY AMAYA3, MG3 #### [facility] [address] [place] [address] Lymphocytes (Bld) [#/Vol] 1.4 10*3/uL Normal 1.0-4.3 [facility] Comment on above: Performed By: #### H YURY AMAYA3, MG3 #### [facility] [address] [place] [address] Lymphocytes/100 WBC (Bld) 16.0 % Low 20.0-40.0 [facility] Comment on above: Performed By: #### H YURY AMAYA3, MG3 #### [facility] [address] [place] [address] MCH (RBC) [Entitic mass] 28.1 pg Normal 26.0-34.0 [facility] Comment on above: Performed By: #### H YURY AMAYA3, MG3 #### [facility] [address] [place] [address] MCHC 32.9 % Normal 32.0-36.0 [facility] Comment on above: Performed By: #### H YURY AMAYA3, MG3 #### [facility] [address] [place] [address] MCV (RBC) [Entitic vol] 85.5 fL Normal 79.0-98.0 [facility] Comment on above: Performed By: #### H JOSE LUIS, CMP3, MG3 #### [facility] [address] [place] [address] Monocytes (Bld) [#/Vol] 0.6 10*3/uL Normal 0.0-0.8 [facility] Comment on above: Performed By: #### H EMDF, CMP3, MG3 #### [facility] [address] [place] [address] Monocytes/100 WBC (Bld) 7.1 % Normal 2.0-10.0 [facility] Comment on above: Performed By: #### H EMDF, CMP3, MG3 #### [facility] [address] [place] [address] Platelet mean volume (Bld) [Entitic vol] 6.7 fL Low 7.4-10.4 [facility] Comment on above: Performed By: #### H EMDF, CMP3, MG3 #### [facility] [address] [place] [address] Platelets (Bld) [#/Vol] 274 10*3/uL Normal 140-440 [facility] Comment on above: Performed By: #### H EMDF, CMP3, MG3 #### [facility] [address] [place] [address] RBC (Bld) [#/Vol] 5.20 10*6/uL Normal 3.80-5.20 [facility] Comment on above: Performed By: #### H EMDF, CMP3, MG3 #### [facility] [address] [place] [address] WBC (Bld) [#/Vol] 8.5 10*3/uL Normal 3.6-10.7 [facility] Comment on above: Performed By: #### H EMDF, CMP3, MG3 #### [facility] [address] [place] [address] Magnesiumon 07-24-2021 Magnesium [Mass/Vol] 2.1 mg/dL Normal 1.6-2.3 [facility] Comment on above: Result Comment: slig ht hemolysis Performed By: #### H EMDF, CMP3, MG3 #### [facility] [address] [place] [address] MagnesiumOrdered By: Rivera Tan on 07-24-2021 Magnesium [Mass/Vol] 2.1 mg/dL 1.6 - 2 .3 mg/dL [facility] Work Phone: Comment on above: slight hemolysis Test Performed by [facility], [address] , [place], [place] [address] [facility] Work Phone: [phone] [facility] Work Phone: [phone] Laboratory - Chemistry and C hemistry - challengeon 07-16-2021 Creatinine (Body fld) [Mass/Vol] 155.4 mg/dL [facility] [address] Work Phone: Comment on above: A urine creatinine r esult >= 20 mg/dL is considered valid without suspicion of dilution. Samples with results below this range will automatically reflex to specific gravity testing to verify specimen integrity. Laboratory - Drug toxicology on 07-16-2021 1-Hydroxymidazolam Confirm (U) [Mass/Vol] <25 Cutoff <25 [facility] [place] [address] Work Phone: 2-Vbnkkomcjg-4,5-Dime thyl-3,3-Diphenylpyrr olidine (EDDP) Confirm (U) [Mass/Vol] <25 Cutoff <25 [facility] [place] [address] Work Phone: Comment on above: The performance [...] (6-WAQAR) Confirm (U) [Mass/Vol] <25 Cutoff <25 [facility] [address] Work Phone: 7-Aminoclonazepam Confirm (U) [Mass/Vol] <25 Cutoff <25 [facility] [place] [address] Work Phone: Alpha hydroxyalprazolam Confirm (U) [Mass/Vol] <25 Cutoff <25 [facility] [address] Work Phone: ALPRAZolam Confirm (U) [Mass/Vol] <25 Cutoff <25 [facility] [address] Work Phone: Amphetamines Screen Ql (U) Negative NEGATIVE [place] [address] Work Phone: Comment on above: CUTOFF LEVEL: 500 NG /ML Cross-reactivity has been reported with high concentrations of the following drugs: buproprion, chloroquine, chlorpromazine, ephedrine, mephentermine, fenfluramine, phentermine, phenylpropanolamine, pseudoephedrine, and propranolol. Barbiturates Screen Ql (U) Negative NEGATIVE [place] [address] Work Phone: Comment on above: CUTOFF LEVEL: 200 NG /ML Benzoylecgonine Screen Ql (U) Negative NEGATIVE [place] [address] Work Phone: Comment on above: CUTOFF LEVEL: 150 NG /ML Cannabinoids Screen Ql (U) Negative NEGATIVE [place] [address] Work Phone: Comment on above: CUTOFF LEVEL: 50 NG/ ML chlordiazePOXIDE Confirm (U) [Mass/Vol] <25 Cutoff <25 [facility] [address] Work Phone: clonazePAM Confirm (U) [Mass/Vol] <25 Cutoff <25 [facility] [address] Work Phone: Codeine Confirm (U) [Mass/Vol] <50 Cutoff <50 [facility] [place] [address] Work Phone: diazePAM Confirm (U) [Mass/Vol] <25 Cutoff <25 [facility] [place] [address] Work Phone: fentaNYL Confirm (U) [Mass/Vol] <2.5 Cutoff<2.5 [facility] [address] Work Phone: HYDROcodone Confirm (U) [Mass/Vol] <25 Cutoff <25 [facility] [place] [address] Work Phone: HYDROmorphone Confirm (U) [Mass/Vol] <25 Cutoff <25 [facility] [place] [address] Work Phone: LORazepam Confirm (U) [Mass/Vol] <25 Cutoff <25 [facility] [place] [address] Work Phone: Methadone Confirm (U) [Mass/Vol] <25 Cutoff <25 [facility] [place] [address] Work Phone: Midazolam Confirm (U) [Mass/Vol] <25 Cutoff <25 [facility] [place] [address] Work Phone: Morphine Confirm (U) [Mass/Vol] <50 Cutoff <50 [facility] [place] [address] Work Phone: Nordiazepam Confirm (U) [Mass/Vol] <25 Cutoff <25 [facility] [place] [address] Work Phone: Norfentanyl Confirm (U) [Mass/Vol] <2.5 Cutoff<2.5 [facility] [address] Work Phone: Comment on above: The performance [...] Norhydrocodone Confirm (U) [Mass/Vol] <25 Cutoff <25 [facility] [address] Work Phone: Noroxycodone Confirm (U) [Mass/Vol] <25 Cutoff <25 [facility] [place] [address] Work Phone: Nortramadol (U) [Mass/Vol] <50 Cutoff <50 [facility] [place] [address] Work Phone: Comment on above: The performance [...] Oxazepam Confirm (U) [Mass/Vol] <25 Cutoff <25 [facility] [place] [address] Work Phone: oxyCODONE Confirm (U) [Mass/Vol] <25 Cutoff <25 [facility] [place] [address] Work Phone: oxyMORphone Confirm (U) [Mass/Vol] <25 Cutoff <25 [facility] [place] [address] Work Phone: Comment on above: The performance [...] testing. Phencyclidine Ql (U) Negative NEGATIVE [facility] [place] [address] Work Phone: Comment on above: CUTOFF LEVEL: 25 NG/ ML Cross-reactivity has been reported with dextromethorphan. Temazepam Confirm (U) [Mass/Vol] <25 Cutoff <25 [facility] [address] Work Phone: Comment on above: The performance [...] traMADol Confirm (U) [Mass/Vol] <50 Cutoff <50 [facility] [address] Work Phone: Zolpidem (U) [Mass/Vol] <25 Cutoff <25 [facility] [place] [address] Work Phone: No Panel Informationon 07-16 <25 Cutoff <25 [facility] [address] Work Phone: Comment on above: The performance [...] high complexity clinical laboratory testing. SEE BELOW [facility] Work Phone: Comment on above: [...] Density, Dexa 1 or More Sites Normal [facility] Work Phone: Radiologyon 04-30-2021 XR Pelvis and Hip - left 2 Views Normal [facility] Work Phone: XR Pelvis and Hip - left 2 Views Please click on the link to view the study images Normal [facility] Work Phone: Hemoglobin A1Con 04-25-2021 Glucose [Mass/Vol] 126 mg/dL [facility] Work Phone: HbA1c (Bld) [Mass fraction] 6.0 % [facility] Work Phone: Comment on above: Diagnosis of Diabete s-Adults Non-Diabetic: < or = 5.6% Increased risk for developing diabetes: 5.7-6.4% Diagnostic of diabetes: > or = 6.5%. Monitoring of Diabetes Age (y) Therapeutic Goal (%) Adults: >18 <7.0 Pediatrics: 13-18 <7.5 7-12 <8.0 0- 6 7.5-8.5 [place] [employer]. Diabetes Care 33(S1), Oct 2009. [...] CO2 [Moles/Vol] 23 mmol/L 21 - 32 [facility] [employer] [facility] Work Phone: Creatinine [Mass/Vol] 0.98 mg/dL See Below - [facility] Work Phone: Comment on above: Reference Range: 0.5 0 - 1.05 Glucose [Mass/Vol] 103 mg/dL above high threshold 74 - 99 -[facility] Work Phone: Potassium [Moles/Vol] 3.8 mmol/L 3.5 - 5.3 - [facility] Work Phone: Protein [Mass/Vol] 6.4 g/dL 6.4 - 8.2 [facility] Work Phone: Sodium [Moles/Vol] 141 mmol/L 136 - 145 [facility] Work Phone: Urea nitrogen [Mass/Vol] 16 mg/dL 6 - 23 [facility] Work Phone: Laboratory - Hematology and Cell countson 04-25-2021 Erythrocyte distribution width (RBC) [Ratio] 14.4 % See Below [facility] Work Phone: Comment on above: Reference Range: 11. 5 - 14.5 Hematocrit (Bld) [Volume fraction] 38.7 % See Below [facility] Work Phone: Comment on above: Reference Range: 36. 0 - 46.0 Hemoglobin (Bld) [Mass/Vol] 12.4 g/dL See Below [facility] Work Phone: Comment on above: Reference Range: 12. 0 - 16.0 MCHC (RBC) [Mass/Vol] 32.0 g/dL See Below [facility] Work Phone: Comment on above: Reference Range: 32. 0 - 36.0 MCV (RBC) [Entitic vol] 88 fL 80 - 100 [facility] Work Phone: Platelets (Bld) [#/Vol] 194 10*3/uL 150 - 450 [facility] Work Phone: RBC (Bld) [#/Vol] 4.42 {x10E12/L} See Below [facility] Work Phone: Comment on above: Reference Range: 4.0 0 - 5.20 WBC (Bld) [#/Vol] 5.6 10*3/uL 4.4 - 11.3 [facility] Work Phone: No Panel Informationon 04-25 69 {mL/min/1.73m2} >60 [facility] Work Phone: Comment on above: CALCULATIONS OF ARMOND MATED GFR ARE PERFORMED USING THE MDRD STUDY EQUATION FOR THE IDMS-TRACEABLE CREATININE METHODS. CLIN CHEM 2007;53:766-72 57 {mL/min/1.73m2} Abnormal >60 [facility] Work Phone: 0.0 {/100_WBC} 0.0-0.0 [facility] Work Phone: Otheron 11-15-2020 XR Ribs - left 3 views Interpreted by: KARINE CONCEPCION11/15/20 14:39MRN: [id number] Name: PORSHA HOUSE STUDY:RIBS, UNILATERAL, W PA [...] (Bld) [Volume fraction] 38.4 % See Below [facility] Work Phone: Comment on above: Reference Range: 36. 0 - 46.0 Hemoglobin (Bld) [Mass/Vol] 11.8 g/dL below low threshold See Below [facility] Work Phone: Comment on above: Reference Range: 12. 0 - 16.0 MCV (RBC) [Entitic vol] 91 fL 80 - 100 [facility] Work Phone: [phone] Platelets (Bld) [#/Vol] 147 {x10E9/L} below low threshold 150 - 450 [facility] Work Phone: RBC (Bld) [#/Vol] 4.20 {x10E12/L} See Below [facility] [employer] Work Phone: Comment on above: Reference Range: 4.0 0 - 5.20 WBC (Bld) [#/Vol] 3.8 {x10E9/L} below low threshold 4.4 - 11.3 [facility] Work Phone: WBC (Bld) [#/Vol] 0.0 {/100_WBC} 0.0-0.0 [facility] Work Phone: Hemoglobin A1Con 10-04-2020 HbA1c (Bld) [Mass fraction] 5.8 % [facility] Work Phone: Comment on above: Diagnosis of Diabete s-Adults Non-Diabetic: < or = 5.6% Increased risk for developing diabetes: 5.7-6.4% Diagnostic of diabetes: > or = 6.5%. Monitoring of Diabetes Age (y) Therapeutic Goal (%) Adults: >18 <7.0 Pediatrics: 13-18 <7.5 7-12 <8.0 0- 6 7.5-8.5 [place] [employer]. Diabetes Care 33(S1), Oct 2009. HbA1c (Bld) [Mass fraction] 120 {MG/DL} [facility] Work Phone: Lipid Panelon 10-04-2020 Cholesterol [Mass/Vol] 145 mg/dL 0 - 199 [facility] Work Phone: Comment on above: . AGE [...] guidelines reference: NCEP ATPIII Guidelines, KATHY 2001, 258:5236-97. Venipuncture immediately after or during the administration of Metamizole may lead to falsely low results. Testing should be performed immediately prior to Metamizole dosing. Cholesterol in HDL [Mass/Vol] 47.4 mg/dL [facility] Work Phone: Comment on above: . AGE VERY LOW LOW N ORMAL HIGH 0-19 Y < 35 < 40 40-45 ---- 20- 24 Y ---- < 40 >45 ---- >24 Y ---- < 40 40-60 >60. Cholesterol in LDL [Mass/Vol] 75 mg/dL 0 - 99 [facility] [employer] Work Phone: Comment on above: . NEAR BORD AGE GERALD RABLE OPTIMAL HIGH HIGH VERY HIGH 0-19 Y 0 - 109 --- 110-129 >/= 130 ---- 20-24 Y 0 - 119 --- 120-159 >/= 160 ---- >24 Y 0 - 99 100-129 130-159 160-189 >/=190. Cholesterol.total/Cho lesterol in HDL [Mass ratio] 3.1 {ratio} [facility] [employer] Work Phone: Comment on above: REF VALUESDESIRABLE < 3.4HIGH RISK > 5.0 Triglyceride [Mass/Vol] 111 mg/dL 0 - 149 [facility] [employer] Work Phone: Comment on above: . AGE [...] CO2 [Moles/Vol] 27 mmol/L 21 - 32 [facility] Work Phone: Creatinine [Mass/Vol] [...] [Catalytic activity/Vol] 22 U/L 7 - 45 [facility] Work Phone: Comment on above: Patients treated wit h Sulfasalazine may generate falsely decreased results for ALT. AST With P-5'-P [Catalytic activity/Vol] 26 U/L 9 - 39 [facility] Work Phone: Erythrocyte distribution width (RBC) [Ratio] 14.1 % See Below [facility] Work Phone: Comment on above: Reference Range: 11. 5 - 14.5 MCHC (RBC) [Mass/Vol] 30.7 g/dL below low threshold See Below [facility] Work Phone: Comment on above: Reference Range: 32. 0 - 36.0 >60 >60 [facility] Work Phone: Comment on above: CALCULATIONS OF ARMOND MATED GFR ARE PERFORMED USING THE MDRD STUDY EQUATION FOR THE IDMS-TRACEABLE CREATININE METHODS. CLIN CHEM 2007;53:766-72 Thyroidon 10-04-2020 TSH Qn 3.38 {mIU/L} See Below [facility] Work Phone: Comment on above: Reference Range: 0.4 4 - 3.98 TSH testing is performed using different testing methodology at [facility] than at other [facility]. Direct result comparisons should only be made within the same method. Urinalysison 10-04-2020 Albumin/Creatinine DL <= 20 mg/L (U) [Mass ratio] 7.8 {ug/mg_crt} 0.0 - 30.0 [facility] Work Phone: Creatinine (U) [Mass/Vol] 116.0 mg/dL See Below [facility] Work Phone: Comment on above: Reference Range: 20. 0 - 320.0 Vitamin D 25-Hydroxyon 10-04 Calcidiol [Mass/Vol] 42 ng/mL [facility] Work Phone: Comment on above: .DEFICIENCY: < 20 NG /MLINSUFFICIENCY: 20-29 NG/MLSUFFICIENCY: 30-100 NG/MLTHIS ASSAY ACCURATELY QUANTIFIES THE SUM OFVITAMIN D3, 25-HYDROXY AND VIT D2,25-HYDROXY. Otheron 08-01-2020 XR Ribs - left 3 views Interpreted by: LAURIE 00:57MRN: [id number] Name: PORSHA HOUSE STUDY:RIBS, UNILATERAL, W PA [...] by: ANA CRISTINA 08/02/20 00:57 [facility] Work [facility]: Mamm - Screening Mammogram w / Tomosynthesison 07-25-2020 MG Breast screening Interpreted by: PLACIDO CORNELL07/29/20 13:12MRN: [id number] Name: PORSHA HOUSE STUDY:DIGITAL MAMM SCREENING W/ [...] any future breast imaging appointments, please call [phone] Patient letter sent SNORM Electronically signed by: JERALD CORNELL 07/29/20 13:12 [facility] Work Phone: Comment on above: ORDER REVISED TO A D IGITAL MAMM SCREENING W/ IRAM BY RADIOLOGIST; Original Order Number: [id number] Clinical Summary: HMSPatient IDon 12-11-2019 QCO [facility] Work Phone: Office Visit: New - visi t with practice, Rm: 1on 12-11-2019 NEGATED: Highlighted rowTobacco smoking status NHIS Tobacco smoking status NHIS [facility] Work Phone: Otheron 11-23-2019 XR Wrist - bilateral 3 views Interpreted by: QLOLKE87/08/20 06:00MRN: [id number] Name: HARSHROXYLL STUDY:WRIST COMPLT; MIN 3 VIEWS; 11/23/2019 2:38 pm INDICATION:right wrist pain. COMPARISON:None. ORDERING CLINICIAN:ERICKA VILLELA FINDINGS:Right wrist, three views There is severe diffuse osteopenia which limits the study. Withinthis limitation no acute fracture seen. Deformity of the distal ulnamay relate to prior injury or may be congenital. There ishyperextension at the wrist. There is moderate degenerative doxiuqn1oq CMC, triscaphe and radiocarpal articulations. IMPRESSION:Severe diffuse [...] 08-15-2019 Amphetamines Screen Ql (U) Negative NEGATIVE [employer] Work Phone: Comment on above: CUTOFF LEVEL: 500 NG /ML Cross-reactivity has been reported with high concentrations of the following drugs: buproprion, chloroquine, chlorpromazine, ephedrine, mephentermine, fenfluramine, phentermine, phenylpropanolamine, pseudoephedrine, and propranolol. Benzoylecgonine Screen Ql (U) Negative NEGATIVE [facility] [email or web address] Phone: Comment on above: CUTOFF LEVEL: 150 NG /ML Methadone Screen Ql (U) Negative NEGATIVE [facility] [email or web address] Phone: Comment on above: CUTOFF LEVEL: 150 NG /ML The metabolite Y-ibsci-ihillkfgudjvhn (LAAM) is not detected by this method in concentrations that would be found in the urine of patients on LAAM therapy. Opiates Screen Ql (U) Negative NEGATIVE [facility] [email or web address] Phone: Comment on above: CUTOFF LEVEL: 300 NG /ML The opiate screen does not detect fentanyl, meperidine, or tramadol. Oxycodone is not consistently detected (refer to Oxycodone Screen, Urine result). Oxycodone+Oxymorphone Screen Ql (U) Negative NEGATIVE [facility] [email or web address] Phone: Comment on above: CUTOFF LEVEL: 100 NG /ML This test will accurately detect both oxycodone and oxymorphone. SEE BELOW [facility] [email or web address] Phone: Comment on above: Drug screen results are presumptive and should not be used to assess compliance with prescribed medication. Contact the performing [facility] laboratory to add-on definitive confirmatory testing [...] 08-15-2019 Barbiturates Screen Ql (U) Negative NEGATIVE [facility] [email or web address] Phone: Comment on above: CUTOFF LEVEL: 200 NG /ML Benzodiazepines Ql (U) Negative NEGATIVE [facility] Work Phone: Comment on above: CUTOFF LEVEL: 200 NG /ML Cannabinoids Screen Ql (U) Negative NEGATIVE [facility] [employer] Work Phone: Comment on above: CUTOFF LEVEL: 50 NG/ ML Phencyclidine Ql (U) Negative NEGATIVE [facility] Work Phone: Comment on above: CUTOFF LEVEL: 25 NG/ ML Cross-reactivity has been reported with dextromethorphan. Vital Signs Date Time Vital Sign Value Performing Clinician Facility 04-02-2025 14:03-0400 Body mass index (BMI) [Ratio] 30.18 kg/m2 Jovon Mckeon MD Work Phone: [facility] 04-02-2025 14:03-0400 Body weight 74.84 kg Jovon Mckeon MD Work Phone: [facility] 03-07-2025 09:34-0400 Body mass index (BMI) [Ratio] 30.18 kg/m2 Meebo PA-C Work Phone: [facility] 03-07-2025 09:34-0400 Body temperature 96.01 [degF] Meebo PA-C Work Phone: [facility] 03-07-2025 09:34-0400 Body weight 74.84 kg ClaudeFlixpress PA-C Work Phone: [facility] 03-07-2025 09:34-0400 Diastolic blood pressure 81 mm[Hg] [employer]Flixpress PA-C Work Phone: [facility] 03-07-2025 09:34-0400 Heart rate 78 /min [employer]Flixpress PA-C Work Phone: [facility] 03-07-2025 09:34-0400 Respiratory rate 16 /min [employer]Flixpress PA-C Work Phone: [facility] 03-07-2025 09:34-0400 SaO2% (BldA) [Mass fraction] 93 % Claude Thompson PA-C Work Phone: [facility] 03-07-2025 09:34-0400 Systolic blood pressure 118 mm[Hg] Claude Thompson PA-C Work Phone: [facility] 03-01-2025 11:18-0400 Body height 157.5 cm Caritoavinash Wigginsa-Yohana PA-C Work Phone: [facility] 03-01-2025 11:18-0400 Body mass index (BMI) [Ratio] 31.64 kg/m2 Yirka Javed-Yohana PA-C Work Phone: [facility] 03-01-2025 11:18-0400 Body weight 78.47 kg Caritorka Javed-Yohana PA-C Work Phone: [facility] 03-01-2025 11:18-0400 Respiratory rate 18 /min Caritorka Javed-Yohana PA-C Work Phone: [facility] 02-17-2025 13:27-0400 Body height 157.5 cm Saima Steidl 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: [facility] 02-17-2025 13:27-0400 Body mass index (BMI) [Ratio] 31.09 kg/m2 Saima Steidl 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: [facility] 02-17-2025 13:27-0400 Body temperature 96.91 [degF] Saima Steidl 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: [facility] 02-17-2025 13:27-0400 Body weight 77.11 kg Saima Steidl 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: [facility] 02-17-2025 13:27-0400 Diastolic blood pressure 81 mm[Hg] Saima Steidl 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: [facility] 02-17-2025 13:27-0400 Heart rate 82 /min Saima Steidl 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: [facility] 02-17-2025 13:27-0400 Respiratory rate 18 /min Saima Steidl 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: [facility] 02-17-2025 13:27-0400 SaO2% (BldA) [Mass fraction] 95 % Saima Steidl 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: [facility] 02-17-2025 13:27-0400 Systolic blood pressure 128 mm[Hg] Saima Steidl 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: [facility] 01-10-2025 10:29-0400 Body height 157.[address] 01-10-2025 10:29-0400 Body mass index (BMI) [Ratio] 32.37 kg/m2 [address] 01-10-2025 10:29-0400 Body weight 80.[address] 10-25-2024 09:36-0500 Body height 157.5 cm Ericka Villela MD Work Phone: [facility] 10-25-2024 09:36-0500 Body mass index (BMI) [Ratio] 32.04 kg/m2 Ericka Villela MD Work Phone: [facility] 10-25-2024 09:36-0500 Body weight 79.47 kg Ericka Villela MD Work Phone: [facility] 10-25-2024 09:36-0500 Diastolic blood pressure 80 mm[Hg] Ericka Villela MD Work Phone: [facility] 10-25-2024 09:36-0500 Heart rate 90 /min Ericka Villela MD Work Phone: [facility] 10-25-2024 09:36-0500 SaO2% (BldA) [Mass fraction] 98 % Ericka Villela MD Work Phone: [facility] 10-25-2024 09:36-0500 Systolic blood pressure 120 mm[Hg] Ericka Villela MD Work Phone: [facility] 09-15-2024 15:49-0500 Body mass index (BMI) [Ratio] 30.73 kg/m2 Claude Emmanuel PA-C Work Phone: [facility] 09-15-2024 15:49-0500 Body temperature 97 [degF] Claude Emmanuel PA-C Work Phone: [facility] 09-15-2024 15:49-0500 Body weight 76.2 kg Claude Emmanuel PA-C Work Phone: [facility] 09-15-2024 15:49-0500 Diastolic blood pressure 85 mm[Hg] Claude Emmanuel PA-C Work Phone: [facility] 09-15-2024 15:49-0500 Heart rate 92 /min Claude Emmanuel PA-C Work Phone: [facility] 09-15-2024 15:49-0500 Respiratory rate 16 /min Claude Emmanuel PA-C Work Phone: [facility] 09-15-2024 15:49-0500 SaO2% (BldA) [Mass fraction] 95 % Claude Emmanuel PA-C Work Phone: [facility] 09-15-2024 15:49-0500 Systolic blood pressure 134 mm[Hg] Claude Emmanuel PA-C Work Phone: [facility] 08-24-2024 11:05-0500 Body height 157.5 cm Ericka Villela MD Work Phone: [facility] 08-24-2024 11:05-0500 Body mass index (BMI) [Ratio] 32.52 kg/m2 Ericka Villela MD Work Phone: [facility] 08-24-2024 11:05-0500 Body weight 80.65 kg Ericka Villela MD Work Phone: [facility] 08-24-2024 11:05-0500 Diastolic blood pressure 78 mm[Hg] Ericka Villela MD Work Phone: [facility] 08-24-2024 11:05-0500 Heart rate 72 /min Ericka Villela MD Work Phone: [facility] 08-24-2024 11:05-0500 SaO2% (BldA) [Mass fraction] 98 % Ericka Villela MD Work Phone: [facility] 08-24-2024 11:05-0500 Systolic blood pressure 115 mm[Hg] Ericka Villela MD Work Phone: [facility] 08-08-2024 11:32-0400 Body height 157.5 cm Lauri Sahu 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: [facility] 08-08-2024 11:32-0400 Body mass index (BMI) [Ratio] 32.5 kg/m2 Lauri Sahu 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: [facility] 08-08-2024 11:32-0400 Body temperature 97 [degF] Lauri Sahu 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: [facility] 08-08-2024 11:32-0400 Body weight 80.6 kg Lauri Sahu 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: [facility] 05-04-2024 14:23-0400 Diastolic blood pressure 78 mm[Hg] Ericka Villela MD Work Phone: [facility] 05-04-2024 14:23-0400 Systolic blood pressure 120 mm[Hg] Ericka Villela MD Work Phone: [facility] 05-04-2024 14:12-0400 Body height 157.5 cm Ericka Villela MD Work Phone: [facility] 05-04-2024 14:12-0400 Body mass index (BMI) [Ratio] 30.91 kg/m2 Ericka Villela MD Work Phone: [facility] 05-04-2024 14:12-0400 Body weight 76.66 kg Ericka Villela MD Work Phone: [facility] [facility] 05-[facility]-2024 14:12-0400 Heart rate 78 /min Ericka Villela MD Work Phone: [facility] 05-04-2024 14:12-0400 SaO2% (BldA) [Mass fraction] 96 % Ericka Villela MD Work Phone: [facility] 04-28-2024 15:29-0400 Body height 154.9 cm Guillaume Merrill MD Work Phone: [facility] 04-28-2024 15:29-0400 Body mass index (BMI) [Ratio] 32.07 kg/m2 Guillaume Merrill MD Work Phone: [facility] 04-28-2024 15:29-0400 Body weight 77 kg Guillaume Merrill MD Work Phone: [facility] 04-12-2024 10:08-0400 Body height 157.5 cm Jovon Mckeon MD Work Phone: [facility] 04-12-2024 10:08-0400 Body mass index (BMI) [Ratio] 30.54 kg/m2 Jovon Mckeon MD Work Phone: [facility] 04-12-2024 10:08-0400 Body temperature 97.3 [degF] Jovon Mckeon MD Work Phone: [facility] 04-12-2024 10:08-0400 Body weight 75.75 kg Jovon Mckeon MD Work Phone: [facility] 04-12-2024 10:08-0400 Diastolic blood pressure 72 mm[Hg] Jovon Mckeon MD Work Phone: [facility] 04-12-2024 10:08-0400 Heart rate 71 /min Jovon Mckeon MD Work Phone: [facility] 04-12-2024 10:08-0400 Respiratory rate 18 /min Jovon Mckeon MD Work Phone: [facility] 04-12-2024 10:08-0400 Systolic blood pressure 115 mm[Hg] Jovon Mckeon MD Work Phone: [facility] 01-24-2024 11:51-0400 Body height 157.5 cm Hannah Elizabeth MD Work Phone: [facility] 01-24-2024 11:51-0400 Body mass index (BMI) [Ratio] 31.73 kg/m2 Hannah Elizabeth MD Work Phone: [facility] 01-24-2024 11:51-0400 Body temperature 96.3 [degF] Hannah Elizabeth MD Work Phone: [facility] 01-24-2024 11:51-0400 Body weight 78.7 kg Hannah Elizabeth MD Work Phone: [facility] 01-06-2024 13:12-0400 Body height 157.[address] 01-06-2024 13:12-0400 Body mass index (BMI) [Ratio] 30.18 kg/m2 [address] 01-06-2024 13:12-0400 Body weight 74.[address] 12-30-2023 14:46-0400 Body height 157.5 cm Ericka Villela MD Work Phone: [facility] 12-30-2023 14:46-0400 Body mass index (BMI) [Ratio] 31.57 kg/m2 Ericka Villela MD Work Phone: [facility] 12-30-2023 14:46-0400 Body weight 78.29 kg Ericka Villela MD Work Phone: [facility] 12-30-2023 14:46-0400 Diastolic blood pressure 69 mm[Hg] Ericka Villela MD Work Phone: [facility] 12-30-2023 14:46-0400 Heart rate 77 /min Ericka Villela MD Work Phone: [facility] 12-30-2023 14:46-0400 SaO2% (BldA) [Mass fraction] 97 % Ericka Villela MD Work Phone: [facility] 12-30-2023 14:46-0400 Systolic blood pressure 117 mm[Hg] Ericka Villela MD Work Phone: [facility] 12-20-2023 12:45-0500 Diastolic blood pressure 70 mm[Hg] Hannah Elizabeth MD Work Phone: [facility] 12-20-2023 12:45-0500 Heart rate 87 /min Hannah Elizabeth MD Work Phone: [facility] 12-20-2023 12:45-0500 Respiratory rate 16 /min Hannah Elizabeth MD Work Phone: [facility] 12-20-2023 12:45-0500 SaO2% (BldA) [Mass fraction] 95 % Hannah Elizabeth MD Work Phone: [facility] 12-20-2023 12:45-0500 Systolic blood pressure 125 mm[Hg] Hannah Elizabeth MD Work Phone: [facility] 12-20-2023 12:36-0500 Body temperature 97.3 [degF] Hannah Elizabeth MD Work Phone: [facility] 10-28-2023 10:38-0500 Body height 154.9 cm Ericka Villela MD Work Phone: [facility] 10-28-2023 10:38-0500 Body mass index (BMI) [Ratio] 31.93 kg/m2 Ericka Villela MD Work Phone: [facility] 10-28-2023 10:38-0500 Body weight 76.66 kg Ericka Villela MD Work Phone: [facility] 10-28-2023 10:38-0500 Diastolic blood pressure 76 mm[Hg] Ericka Villela MD Work Phone: [facility] 10-28-2023 10:38-0500 Heart rate 79 /min Ericka Villela MD Work Phone: [facility] 10-28-2023 10:38-0500 SaO2% (BldA) [Mass fraction] 97 % Ericka Villela MD Work Phone: [facility] 10-28-2023 10:38-0500 Systolic blood pressure 112 mm[Hg] Ericka Villela MD Work Phone: [facility] 09-22-2023 11:51-0500 Diastolic blood pressure 63 mm[Hg] Iza Sams MD Work Phone: [facility] 09-22-2023 11:51-0500 Heart rate 68 /min Iza Sams MD Work Phone: [facility] 09-22-2023 11:51-0500 Respiratory rate 16 /min Iza Sams MD Work Phone: [facility] 09-22-2023 11:51-0500 SaO2% (BldA) [Mass fraction] 95 % Iza Sams MD Work Phone: [facility] 09-22-2023 11:51-0500 Systolic blood pressure 100 mm[Hg] Iza Sams MD Work Phone: [facility] 09-22-2023 11:34-0500 Body temperature 96.8 [degF] Iza Sams MD Work Phone: [facility] 09-06-2023 11:00-0500 Body height 154.9 cm Hannah Elizabeth MD Work Phone: [facility] 09-06-2023 11:00-0500 Body mass index (BMI) [Ratio] 30.8 kg/m2 Hannah Elizabeth MD Work Phone: [facility] 09-06-2023 11:00-0500 Body weight 73.94 kg Hannah Elizabeth MD Work Phone: [facility] 08-31-2023 08:56-0500 Body height 154.9 cm Hannah Elizabeth MD Work Phone: [facility] 08-31-2023 08:56-0500 Body mass index (BMI) [Ratio] 30.8 kg/m2 Hannah Elizabeth MD Work Phone: [facility] 08-31-2023 08:56-0500 Body weight 73.94 kg Hannah Elizabeth MD Work Phone: [facility] 08-19-2023 10:30-0400 Body height 153.7 cm Ericka Villela MD Work Phone: [facility] Comment on above: w/o shoes 08-19-2023 10:30-0400 Body mass index (BMI) [Ratio] 32.31 kg/m2 Ericka Villela MD Work Phone: [facility] 08-19-2023 10:30-0400 Body weight 76.3 kg Ericka Villela MD Work Phone: [facility] 08-19-2023 10:30-0400 Diastolic blood pressure 78 mm[Hg] Ericka Villela MD Work Phone: [facility] 08-19-2023 10:30-0400 Heart rate 77 /min Ericka Villela MD Work Phone: [facility] 08-19-2023 10:30-0400 SaO2% (BldA) [Mass fraction] 99 % Ericka Villela MD Work Phone: [facility] 08-19-2023 10:30-0400 Systolic blood pressure 116 mm[Hg] Ericka Villela MD Work Phone: [facility] 06-02-2023 10:16-0400 Body height 157.5 cm Ericka Villela MD Work Phone: [facility] 06-02-2023 10:16-0400 Body mass index (BMI) [Ratio] 30.25 kg/m2 Ericka Villela MD Work Phone: [facility] 06-02-2023 10:16-0400 Body weight 75.03 kg Ericka Villela MD Work Phone: [facility] 06-02-2023 10:16-0400 Diastolic blood pressure 79 mm[Hg] Ericka Villela MD Work Phone: [facility] 06-02-2023 10:16-0400 Heart rate 88 /min Ericka Villela MD Work Phone: [facility] 06-02-2023 10:16-0400 SaO2% (BldA) [Mass fraction] 99 % Ericka Villela MD Work Phone: [facility] 06-02-2023 10:16-0400 Systolic blood pressure 123 mm[Hg] Ericka Villela MD Work Phone: [facility] 02-24-2023 11:43-0400 Body height 157.5 cm Ericka Villela MD Work Phone: [facility] 02-24-2023 11:43-0400 Body mass index (BMI) [Ratio] 30.91 kg/m2 Ericka Villela MD Work Phone: [facility] 02-24-2023 11:43-0400 Body weight 76.66 kg Ericka Villela MD Work Phone: [facility] 02-24-2023 11:43-0400 Diastolic blood pressure 78 mm[Hg] Ericka Villela MD Work Phone: [facility] 02-24-2023 11:43-0400 Heart rate 63 /min Ericka Villela MD Work Phone: [facility] 02-24-2023 11:43-0400 SaO2% (BldA) [Mass fraction] 98 % Ericka Villela MD Work Phone: [facility] 02-24-2023 11:43-0400 Systolic blood pressure 124 mm[Hg] Ericka Villela MD Work Phone: [facility] 12-31-2022 12:28-0400 6 1 Ericka Villela Work Phone: BA-Qmprwzsxqg-Cthg na 220 Work Phone: Comment on above: [facility] 12-31-2022 12:28-0400 16 1 Erickakingsley [employer] Work Phone: WC-Rzognkkqwr-Djfo na 220 Work Phone: Comment on above: [facility] 12-31-2022 11:36-0400 Body height 157.48 cm Ericka Villela Work Phone: BF-Qdxaduslgv-Imco na [address] Work Phone: 12-31-2022 11:36-0400 Body mass index (BMI) [Ratio] 29.44 kg/m2 Ericka Villela Work Phone: ZQ-Ekvhurdtfu-Bbas na [address] Work Phone: 12-31-2022 11:36-0400 Body surface area Derived from formula 1.74 m2 Erickakingsley [employer] Work Phone: VD-Mzcnnkaawm-Pgnu na [address] Work Phone: 12-31-2022 11:36-0400 Body weight 73 kg Ericka M Manohar Work Phone: IU-Qbrsuagcam-Kgnu na [address] Work Phone: 12-31-2022 11:36-0400 Diastolic blood pressure 72 mm[Hg] Ericka Adonis Manohar Work Phone: WB-Cnkxvfypmz-Dyzn na [address] Work Phone: 12-31-2022 11:36-0400 Heart rate 82 /min Ericka M Manohar Work Phone: UA-Wzblrmtpyp-Cock na 220 Work Phone: 12-31-2022 11:36-0400 Systolic blood pressure 128 mm[Hg] Ericka Adonis Manohar Work Phone: PG-Rvafnawfoa-Jkoa na [address] Work Phone: 12-24-2022 11:02-0500 Diastolic blood pressure 72 mm[Hg] Ericka Villela MD Work Phone: [facility] 12-24-2022 11:02-0500 Systolic blood pressure 124 mm[Hg] Ericka Villela MD Work Phone: [facility] 12-24-2022 10:30-0500 Body height 157.5 cm Ericka Villela MD Work Phone: [facility] 12-24-2022 10:30-0500 Body mass index (BMI) [Ratio] 31.44 kg/m2 Ericka Villela MD Work Phone: [facility] 12-24-2022 10:30-0500 Body weight 77.97 kg Ericka Villela MD Work Phone: [facility] 12-24-2022 10:30-0500 Heart rate 84 /min Ericka Villela MD Work Phone: [facility] 12-24-2022 10:30-0500 SaO2% (BldA) [Mass fraction] 99 % Ericka Villela MD Work Phone: [facility] 10-20-2022 13:08-0500 Body mass index (BMI) [Ratio] [...] SaO2% (BldA) [Mass fraction] 95 % Ericka Villela Work Phone: [facility] Work Phone: 10-20-2022 13:08-0500 Systolic blood pressure 135 mm[Hg] Ericka Villela Work Phone: [facility] Work Phone: 09-03-2022 11:27-0500 Body mass index (BMI) [Ratio] 31.32 kg/m2 Ericka Villela Work Phone: [facility] Work Phone: 09-03-2022 11:27-0500 Body surface area Derived from formula 1.79 m2 Ericka Villela Work Phone: [facility] Work Phone: 09-03-2022 11:27-0500 Body weight 77.68 kg Ericka Villela Work Phone: [facility] Work Phone: 09-03-2022 11:27-0500 Diastolic blood pressure 74 mm[Hg] Ericka Villela Work Phone: [facility] Work Phone: 09-03-2022 11:27-0500 Heart rate 64 /min Ericka Villela Work Phone: [facility] Work Phone: 09-03-2022 11:27-0500 SaO2% (BldA) [Mass fraction] 99 % Ericka Villela Work Phone: [facility] Work Phone: 09-03-2022 11:27-0500 Systolic blood pressure 124 mm[Hg] Ericka Villela Work Phone: [facility] Work Phone: 05-28-2022 10:54-0400 Body mass index (BMI) [Ratio] 30.06 kg/m2 Ericka Villela Work Phone: [facility] Work Phone: 05-28-2022 10:54-0400 Body surface area Derived from formula 1.76 m2 Ericka Villela Work Phone: [facility] Work Phone: 05-28-2022 10:54-0400 Body weight 74.56 kg Ericka Villela Work Phone: [facility] Work Phone: 05-28-2022 10:54-0400 Diastolic blood pressure 78 mm[Hg] Ericka Villela Work Phone: [facility] Work Phone: 05-28-2022 10:54-0400 Heart rate 71 /min Ericka Villela Work Phone: [facility] Work Phone: 05-28-2022 10:54-0400 SaO2% (BldA) [Mass fraction] 98 % Ericka Villela Work Phone: [facility] Work Phone: 05-28-2022 10:54-0400 Systolic blood pressure 114 mm[Hg] Ericka Villela Work Phone: [facility] Work Phone: 04-29-2022 11:28-0400 Body mass index (BMI) [Ratio] 30.37 kg/m2 Ericka Villela Work Phone: [facility] Work Phone: 04-29-2022 11:28-0400 Body surface area Derived from formula 1.77 m2 Ericka Villela Work Phone: [facility] Work Phone: 04-29-2022 11:28-0400 Body weight 75.32 kg Ericka Villela Work Phone: [facility] Work Phone: 04-29-2022 11:28-0400 Diastolic blood pressure 75 mm[Hg] Ericka Villela Work Phone: [facility] Work Phone: 04-29-2022 11:28-0400 Heart rate 68 /min Ericka Villela Work Phone: [facility] Work Phone: 04-29-2022 11:28-0400 SaO2% (BldA) [Mass fraction] 99 % Ericka Villela Work Phone: [facility] Work Phone: 04-29-2022 11:28-0400 Systolic blood pressure 117 mm[Hg] Ericka Villela Work Phone: [facility] Work Phone: 03-24-2022 11:25-0400 Body mass index (BMI) [Ratio] 30.91 kg/m2 Ericka Villela Work Phone: [facility] Work Phone: 03-24-2022 11:25-0400 Body surface area Derived from formula 1.78 m2 Ericka Villela Work Phone: [facility] Work Phone: 03-24-2022 11:25-0400 Body temperature 98 [degF] Ericka Villela Work Phone: [facility] Work Phone: 03-24-2022 11:25-0400 Body weight 76.66 kg Ericka Villela Work Phone: [facility] Work Phone: 03-24-2022 11:25-0400 Diastolic blood pressure 80 mm[Hg] Ericka Villela Work Phone: [facility] Work Phone: 03-24-2022 11:25-0400 Heart rate 80 /min Ericka Villela Work Phone: [facility] Work Phone: 03-24-2022 11:25-0400 SaO2% (BldA) [Mass fraction] 98 % Ericka Vilella Work Phone: [facility] Work Phone: 03-24-2022 11:25-0400 Systolic blood pressure 127 mm[Hg] Ericka Villela Work Phone: [facility] Work Phone: 02-18-2022 09:53-0400 Body height 157.48 cm Ericka Villela Work Phone: JR-Joexyvkvw-VPSKA [facility] Work Phone: 02-18-2022 09:53-0400 Body mass index (BMI) [Ratio] 31.28 kg/m2 Ericka Villela Work Phone: UF-Xctbhzarh-LKHAP [facility] Work Phone: 02-18-2022 09:53-0400 Body surface area Derived from formula 1.79 m2 Ericka Villela Work Phone: [facility] [facility] Work Phone: 02-18-2022 09:53-0400 Body weight 77.57 kg Ericka Villela Work Phone: PU-Dlroyjilv-BUCSC [facility] Work Phone: 02-18-2022 09:53-0400 Diastolic blood pressure 70 mm[Hg] Ericka Villela Work Phone: PS-Phemfuzhb-JHUCC [facility] Work Phone: 02-18-2022 09:53-0400 Heart rate 76 /min Ericka Villela Work Phone: LT-Pzniclbza-HYMZW [facility] Work Phone: 02-18-2022 09:53-0400 Respiratory rate 16 /min Ericka Villela Work Phone: US-Qilobhblw-LRYHD [facility] Work Phone: 02-18-2022 09:53-0400 Systolic blood pressure 118 mm[Hg] Ericka Villela Work Phone: [facility] Work Phone: 01-01-2022 11:06-0400 Body mass [...] formula 1.74 m2 Ericka Villela Work Phone: [facility] Work Phone: 09-04-2021 11:06-0500 Body weight 72.58 kg Ericka Villela Work Phone: [facility] Work Phone: 09-04-2021 11:06-0500 Diastolic blood pressure 72 mm[Hg] Ericka Villela Work Phone: [facility] Work Phone: 09-04-2021 11:06-0500 Heart rate 77 /min Ericka Villela Work Phone: [facility] Work Phone: 09-04-2021 11:06-0500 Systolic blood pressure 103 mm[Hg] Ericka Villela Work Phone: [facility] Work Phone: 07-28-2021 11:59-0400 Body height 157.48 cm Ericka Villela Work Phone: [facility] Work Phone: 07-28-2021 11:59-0400 Body mass index (BMI) [Ratio] 28.72 kg/m2 Ericka Villela Work Phone: [facility] Work Phone: 07-28-2021 11:59-0400 Body surface area Derived from formula 1.72 m2 Ericka Villela Work Phone: [facility] Work Phone: 07-28-2021 11:59-0400 Body weight 71.22 kg Ericka Villela Work Phone: [facility] Work Phone: 07-28-2021 11:59-0400 Diastolic blood pressure 70 mm[Hg] Ericka Villela Work Phone: [facility] Work Phone: 07-28-2021 11:59-0400 Heart rate 79 /min Ericka Villela Work Phone: [facility] Work Phone: 07-28-2021 11:59-0400 Respiratory [...] height 157.48 cm Ericka Villela Work Phone: [facility] Work Phone: 04-30-2021 10:43-0400 Body mass index (BMI) [Ratio] 30 kg/m2 Ericka Villela Work Phone: [facility] Work Phone: 04-30-2021 10:43-0400 Body surface area Derived from formula 1.76 m2 Ericka Villela Work Phone: [facility] Work Phone: 04-30-2021 10:43-0400 Body weight 74.39 kg Ericka Villela Work Phone: [facility] Work Phone: 04-30-2021 10:43-0400 Diastolic blood pressure 84 mm[Hg] Ericka Villela Work Phone: [facility] Work Phone: 04-30-2021 10:43-0400 Heart rate 92 /min Ericka Villela Work Phone: [facility] Work Phone: 04-30-2021 10:43-0400 Systolic blood pressure 106 mm[Hg] Ericka Villela Work Phone: [facility] Work Phone: 04-02-2021 10:18-0400 Body height 157.48 cm Ericka Villela Work Phone: [facility] Work Phone: 04-02-2021 10:18-0400 Body mass index (BMI) [Ratio] 30.91 kg/m2 Ericka Villela Work Phone: [facility] Work Phone: 04-02-2021 10:18-0400 Body surface area Derived from formula 1.78 m2 Ericka Villela Work Phone: [facility] Work Phone: 04-02-2021 10:18-0400 Body weight 76.66 kg Ericka Villela Work Phone: [facility] Work Phone: 04-02-2021 10:18-0400 Diastolic blood pressure 73 mm[Hg] Ericka Villela Work Phone: [facility] Work Phone: 04-02-2021 10:18-0400 Heart rate 69 /min Ericka Villela Work Phone: [facility] Work Phone: 04-02-2021 10:18-0400 Systolic blood pressure 127 mm[Hg] Ericka Villela Work Phone: [facility] Work Phone: 11-15-2020 15:12-0500 BMI (Body Mass Index) 30.81 kg/m2 Ericka Villela [facility] Work Phone: 11-15-2020 15:12-0500 Body Temperature 97.3 [degF] Ericka Villela [facility] Work Phone: 11-15-2020 15:12-0500 Body weight 76.4 kg [facility] Work Phone: 11-15-2020 15:12-0500 BP Diastolic 77 mm[Hg] [facility] Work Phone: 11-15-2020 15:12-0500 BP Systolic 124 mm[Hg] Eric[facility]illela [facility] Work Phone: 11-15-2020 15:12-0500 BSA (Body Surface Area) 1.78 m2 Ericka [facility]illela [facility] Work Phone: 11-15-2020 15:12-0500 Height 157.48 cm Ericka [facility]illela [facility] Work Phone: 11-15-2020 15:12-0500 Pulse (Heart Rate) 81 /min Ericka [facility]illela [facility] Work Phone: 11-15-2020 15:12-0500 Pulse Oximetry 98 % Ericka [facility]illela [facility] Work Phone: 11-15-2020 15:12-0500 Respiratory Rate 20 /min Ericka [facility]illela [facility] Work Phone: 11-15-2020 15:12-0500 5 1 Ericka [facility]illela [facility] Work Phone: Comment on above: Pain Scale 08-01-2020 16:57-0400 BMI (Body Mass Index) 29.63 kg/m2 Ericka Villela [facility] Work Phone: 08-01-2020 16:57-0400 Body Temperature 96.4 [degF] Ericka Villela [facility] Work Phone: 08-01-2020 [...] 15:45-0500 BMI (Body Mass Index) 31.48 kg/m2 Ericak Villela [facility] Work Phone: 11-23-2019 [...] 15:45-0500 Pulse (Heart Rate) 72 /min [facility] Work Phone: 08-15-2019 15:44-0400 BMI (Body Mass Index) 31.11 kg/m2 [facility] Work Phone: 08-15-2019 15:44-0400 Body weight 77.[address] [facility] Work Phone: 08-15-2019 15:44-0400 BP Diastolic 90 mm[Hg] [facility] Work Phone: 08-15-2019 15:44-0400 BP Systolic 130 mm[Hg] [facility] Work Phone: 08-15-2019 15:44-0400 BSA (Body Surface Area) 1.[address] [facility] Work Phone: 08-15-2019 15:44-0400 Pulse (Heart Rate) 72 /min [facility] Work Phone: 02-21-2019 13:35-0400 BMI (Body Mass Index) 32.37 kg/m2 Ericka [facility] Work Phone: 02-21-2019 13:35-0400 Body weight 80.29 kg Ericka [facility] Work Phone: 02-21-2019 13:35-0400 BP Di[facility] 84 mm[Hg] [facility] Work Phone: 02-21-2019 13:35-0400 BP Systolic 124 mm[Hg] [facility] Work Phone: 02-21-2019 13:35-0400 BSA (Body Surface Area) 1.81 m2 Ericka [facility] Work Phone: 02-21-2019 13:35-0400 Height 157.48 cm Ericka Manohar [facility] Work Phone: 02-21-2019 13:35-0400 Pulse (Heart Rate) 64 /min Ericka Villela [facility] Work Phone: NEGATED: Highlighted [id number] 12:11-0500 BMI (Body Mass Index) 31.39 kg/m2 Sonia Oakley AT [facility] Work Phone: NEGATED: Highlighted [id number] 12:11-0500 Body weight 77.57 kg Sonia Oakley AT [facility] Work Phone: NEGATED: Highlighted [id number] 12:11-0500 Body weight 78 kg Sonia Oakley AT [facility] Work Phone: NEGATED: Highlighted [id number] 12:11-0500 BP Diastolic 82 mm[Hg] Sonia Oakley AT [facility] Work Phone: NEGATED: Highlighted [id number] 12:11-0500 BP Systolic 122 mm[Hg] Sonia Oakley AT [facility] Work Phone: NEGATED: Highlighted [id number] 12:11-0500 Height 157.48 cm Sonia Oakley AT [facility] Work Phone: NEGATED: Highlighted [id number] 12:11-0500 Height 157 cm Sonia Okaley AT [facility] Work Phone: NEGATED: Highlighted [id number] 12:11-0500 Pulse (Heart Rate) 69 /min Sonia Oakley AT [facility] Work Phone: Encounters Encounter Date Encounter Type Care Provider Facility Start: 04-03-2025 End: 04-03-2025 Office outpatient visit 15 minutes Jovon Mckeon MD Work Phone: [facility] Comment on above: Mononeuritis multipl ex (Primary Dx); Cervical radiculopathy Start: 04-03-2025 End: 04-03-2025 ambulatory [facility] Start: 03-27-2025 End: 03-27-2025 Patient encounter procedure Yehuda Kirk PA-C Work Phone: Orthopedics Comment on above: Post-operative state (Primary Dx) Start: 03-27-2025 End: 03-27-2025 ambulatory YEHUDA KIRK Facility:[facility] Start: 03-27-2025 End: 03-27-2025 Subsequent hospital visit by physician [facility] Erlinda Garcia Work Phone: Radiology Comment on above: Closed Colles' fract ure of left radius with routine healing, subsequent encounter [S53.532D] Start: 03-22-2025 End: 03-22-2025 ambulatory [facility] Start: 03-13-2025 End: 03-13-2025 ambulatory Cynthia Falcon OTR/L Work Phone: [facility] Comment on above: Pain and swelling of wrist, left (Primary Dx); Post-operative state; Closed Colles' fracture of left radius with routine healing, subsequent encounter Start: 03-07-2025 End: 03-07-2025 Unknown [facility] Start: 03-07-2025 End: 03-07-2025 Office outpatient visit 25 minutes Claude Thompson PA-C Work Phone: [facility] Comment on above: Urinary tract infect ion without hematuria, site unspecified Start: 03-01-2025 End: 03-01-2025 Patient encounter procedure Yehuda Kirk PA-C Work Phone: [facility] Comment on above: Closed Colles' fract ure of left radius with routine healing, subsequent encounter (Primary Dx); Post-operative state Start: 03-01-2025 End: 03-02-2025 ambulatory Sabrina Xiong OTR/L [facility] Comment on above: Pain and swelling of wrist, left (Primary Dx); Closed Colles' fracture of left radius with routine healing, subsequent encounter; Post-operative state Start: 02-19-2025 Patient encounter status Yehuda Kirk PA-C Work Phone: [facility] Work Phone: Start: 02-19-2025 End: 02-19-2025 ambulatory TOMAS GRAMAJO Facility:[facility] Start: 02-17-2025 End: 02-17-2025 Office outpatient visit 25 minutes Saima Gallego Nela MARTINESN-PLATE DRYING MACHINE TENDER Work Phone: [facility] Comment on above: Cellulitis of left t humb (Primary Dx); Skin ulcer, limited to breakdown of skin Start: 02-17-2025 End: 02-17-2025 Unknown [facility] Start: 02-16-2025 End: 02-16-2025 ambulatory Jasmine Stack APRN.PLATE DRYING MACHINE TENDER Work Phone: [facility] Start: 02-16-2025 End: 02-16-2025 E-mail encounter from caregiver Jasmine Stack APRN.PLATE DRYING MACHINE TENDER Work Phone: [facility] Start: 02-14-2025 End: 02-14-2025 Orders Only Tomas Gramajo MD Work Phone: [facility] Comment on above: Closed fracture of d istal end of left radius, unspecified fracture morphology, initial encounter (Primary Dx) Closed Colles' fract ure of left radius, initial encounter [S52.532A] Closed Colles' fract ure of left radius, initial encounter Start: 02-09-2025 End: 02-09-2025 ambulatory LESLYE LEMUS Facility:[facility] Start: 02-09-2025 End: 02-09-2025 Patient encounter procedure Guillaume Merrill MD Work Phone: Orthopaedics Comment on above: Closed Colles' fract ure of left radius, initial encounter (Primary Dx) Start: 02-03-2025 End: 02-03-2025 Emergency department patient visit ERICKA VILLELA Facility:[facility] Start: 02-03-2025 End: 02-05-2025 Telephone encounter Ericka Villela MD Work Phone: Orthopaedics Comment on above: Appointment Start: 01-31-2025 End: 01-31-2025 Patient encounter procedure Guillaume Merrill MD Work Phone: Orthopaedics Comment on above: Primary osteoarthrit is of left knee; Chronic pain of right knee; Vasculitis; Presence of right artificial knee joint Start: 01-31-2025 End: 01-31-2025 ambulatory GUILLAUME MERRILL Facility:[facility] Start: 01-30-2025 End: 01-31-2025 Office outpatient visit 15 minutes Marilee Wiseman MD Work Phone[facility] Comment on above: Cervicalgia (Primary Dx); Cervical radiculopathy Start: 01-30-2025 End: 01-31-2025 ambulatory [facility] Start: 01-25-2025 End: 01-25-2025 ambulatory [facility] Start: 01-10-2025 End: 01-10-2025 Subsequent hospital visit by physician Tory D[place]110 [place] [facility] Comment on above: Encounter for screen ing mammogram for breast cancer Start: 01-10-2025 End: 01-10-2025 ambulatory [facility] Start: 12-28-2024 Patient encounter status [facility] Work Phone: Start: 12-28-2024 End: 12-28-2024 ambulatory [facility] Start: 12-19-2024 End: 12-19-2024 Subsequent hospital visit by physician Tory [id number] X-Ray 2 [facility] Comment on above: Neck pain Start: 12-19-2024 End: 12-19-2024 Office outpatient visit 25 minutes Marilee Wiseman MD Work Phone: [facility] Comment on above: Neck pain (Primary D x); Cervicalgia Start: 12-19-2024 End: 12-19-2024 ambulatory [facility] Start: 11-16-2024 End: 11-16-2024 ambulatory [facility] Start: 11-07-2024 End: 11-07-2024 Office outpatient new 30 minutes Marilee Wiseman MD Work Phone: [facility] Comment on above: Neck pain (Primary D x) Start: 11-07-2024 End: 11-07-2024 ambulatory [facility] Start: 10-25-2024 End: 10-25-2024 Subsequent hospital visit by physician Tory [id number] X-Ray 1 [facility] Comment on above: Neck muscle spasm Start: 10-25-2024 End: 10-25-2024 ambulatory [facility] Start: 10-25-2024 End: 10-25-2024 Office outpatient visit 25 minutes Ericka Villela MD Work Phone: [facility] Comment on above: Neck muscle spasm (P rimary Dx); Type 2 diabetes mellitus without complication, without long-term current use of insulin (Multi); Cervical radiculopathy; Neck pain; Fall, initial encounter Start: 10-20-2024 End: 10-20-2024 ambulatory [facility] Start: 09-20-2024 End: 09-20-2024 ambulatory [facility] Start: 09-19-2024 End: 09-19-2024 Office outpatient visit 15 minutes Jovon Mckeon MD Work Phone: [facility] Comment on above: Mononeuritis multipl ex (Primary Dx); Cervical radiculopathy Start: 09-19-2024 End: 09-19-2024 ambulatory JOVON MCKEON [facility] Start: 09-15-2024 End: 09-15-2024 Office outpatient new 45 minutes Claude Thompson PA-C Work Phone: [facility] Comment on above: Contact with and (zuñiga spected) exposure to covid-19; COVID-19 Start: 09-15-2024 End: 09-15-2024 Unknown [facility] Start: 08-25-2024 End: 08-25-2024 ambulatory [facility] Start: 08-24-2024 End: 08-24-2024 ambulatory [facility] Start: 08-24-2024 End: 08-24-2024 Office [...] present; Other fatigue; Peripheral vascular disease, unspecified ([facility]); Hypercholesterolemia Start: 08-18-2024 End: 08-18-2024 ambulatory [facility] Start: 08-08-2024 End: 08-08-2024 Office outpatient visit 25 minutes Lauri [facility] 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: [facility] Comment on above: Hoarseness of voice (Primary Dx); Unilateral vocal cord paralysis Start: 08-08-2024 End: 08-08-2024 ambulatory [facility] Start: 07-27-2024 End: 07-27-2024 ambulatory [facility] Start: 06-01-2024 End: 06-01-2024 ambulatory [facility] Start: 05-04-2024 End: 05-04-2024 ambulatory [facility] Start: 05-04-2024 End: 05-04-2024 Office [...] Telephone encounter Guillaume Merrill MD Work Phone: [facility] Comment on above: Insurance Authorizat ion (Prior Auth Delayed: Additional Info Needed- unsigned ov note) Start: 04-28-2024 End: 04-28-2024 Patient encounter procedure Guillaume Merrill MD Work Phone: Orthopaedics Comment on above: Primary osteoarthrit is of both knees (Primary Dx); Chondromalacia of right patella Start: 04-28-2024 End: 04-28-2024 ambulatory GUILLAUME MERRILL Facility:[facility] Start: 04-28-2024 End: 04-28-2024 Subsequent hospital visit by physician Radio General Erlinda Garcia Work Phone: Radiology Comment on above: Left knee pain, unsp ecified chronicity [M25.562] Start: 04-12-2024 End: 04-12-2024 [facility] Start: 04-12-2024 End: 04-12-2024 Office outpatient visit 25 minutes Jovon Mckeon MD Work Phone: [facility] Comment on above: Mononeuritis multipl ex (Primary Dx) Start: 03-24-2024 End: 03-24-2024 ambulatory [facility] Start: 01-24-2024 End: 01-24-2024 Patient encounter procedure Hannah Elizabeth MD Work Phone: [facility] Comment on above: 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); Glottic insufficiency; Hoarseness of voice Start: 01-10-2024 End: 01-10-2024 Subsequent hospital visit by physician Tory Tello [facility] Comment on above: Asymptomatic [place] Start: 01-06-2024 End: 01-06-2024 Subsequent hospital visit by physician Tory Tello [facility] 1 [facility] Comment on above: Screening mammogram for breast cancer Start: 12-30-2023 End: 12-30-2023 Assay of hemosiderin, quant Ericka Villela MD Work Phone: [facility] Work Phone: Start: 12-30-2023 End: 12-30-2023 Patient encounter procedure Ericka Villela MD Work Phone: [facility] Comment on above: Routine [facility] [place] [facility] examination at health care facility (Primary Dx); [...] by physician Hannah Elizabeth MD Work Phone: [facility] Comment on above: Surgery, elective (P rimary Dx); Primary hypertension; Hoarseness of voice Start: 10-28-2023 End: 10-28-2023 Office outpatient visit 25 minutes Ericka Vilella MD Work Phone: [facility] Comment [...] by physician Iza Ko MD Work Phone: [facility] Comment on above: Pharyngoesophageal d ysphagia Start: 09-06-2023 End: 09-06-2023 Patient encounter procedure Hannah Elizabeth MD Work Phone: [facility] Comment on above: Hoarseness of voice (Primary Dx); Hoarseness or changing voice; Paresis of left vocal fold Start: 08-31-2023 End: 08-31-2023 Office outpatient new 45 minutes Hannah Elizabeth MD Work Phone: [facility] Comment on above: Hoarseness or changi ng voice (Primary Dx); Glottic insufficiency; Paresis of left vocal fold; Pharyngoesophageal dysphagia Start: 08-19-2023 End: 08-19-2023 Office outpatient visit 15 minutes Ericka Villela MD Work Phone: [facility] Comment on above: Hoarseness or changi ng voice (Primary Dx); Vitamin B12 deficiency; Laryngitis Start: 07-28-2023 End: 07-29-2023 ambulatory ERICKA VILLELA [facility] Start: 07-28-2023 End: 07-28-2023 Subsequent hospital visit by physician Par X-Ray 2 [facility] Comment on above: Other dysphagia; Hoarseness or [...] sit 15 minutes Ericka Villela Work Phone: UY-Ofcvoakms-VSWFX [place] [address] Work Phone: Start: 06-29-2023 ambulatory MD ERICKA VILLELA [facility] ity:[facility] Start: 06-18-2023 Chart Update Ericka Villela Work Phone: HY-Wzwnrnkwk-[address] Work Phone: Start: 06-16-2023 AUDIT Ericka Villela Work Phone: EQ-Uwsrytgdn-Zuwpwoo [address] Work Phone: Start: 06-02-2023 End: [...] Start: 02-10-[address] Luís Dixon Faci lity:[id number] Start: 12-31-2022 ambulatory Chanelle Estrada Facility: [id number] Start: 12-31-2022 Office consultation new/estab patient 60 min Ericka Villela Work Phone: BA-Xggwycynbe-[address]jho[address] Work Phone: Start: 12-24-2022 AUDIT Ericka Villela Work Phone: [facility] Work Phone: Start: 12-24-2022 End: 12-24-2022 Patient encounter procedure Ericka Villela MD Work Phone: [facility] Work Phone: Comment on above: Poor sleep [...] Start: 12-23-2022 AUDIT Ericka Villela Work Phone: HW-Cthbrcvqo-NZVSI [place] [address] Work Phone: Start: 11-26-2022 ambulatory MD ERICKA VILLELA Facil ity:[id number] Start: 10-29-2022 ambulatory MD ERICKA VILLELA Facil ity:[id number] Start: 10-20-2022 ambulatory DO ALYA NICHOLS Facility:[id number] Start: 10-20-2022 Office outpatient vi sit 25 minutes Ericka Adonis Villela Work Phone: [facility] Work Phone: Start: 10-01-2022 ambulatory MD ERICKA VILLELA Facil ity:[id number] Start: 10-01-2022 Patient encounter procedure Al fouzia [address] Work Phone: [facility] Work Phone: Start: 09-03-2022 Office outpatient vi sit 25 minutes Ericka Villela Work Phone: [facility] Work Phone: Start: 09-03-2022 ambulatory MD ERICKA VILLELA Facil ity:[id number] Start: 08-28-2022 AUDIT Ericka Villela Work Phone: [facility] Work Phone: Start: 08-27-[address] Work Phone: [facility] [place] [address] [place] Work Phone: Start: 08-19-2022 Patient encounter procedure Al fouzia [address] Work Phone: [facility] [place] [address] [place] Work Phone: Start: 08-19-[address] Work Phone: [facility] [place] [address] [place] Work Phone: Start: 07-27-2022 Patient encounter procedure Al fouzia [address] Work Phone: [facility] Work Phone: Start: 07-27-2022 ambulatory MD ERICKA VILLELA Facil [id number] Start: 06-29-2022 Patient encounter procedure Al fouzia Villela Work Phone: [facility] Work Phone: Start: 06-23-2022 AUDIT Ericka Villela Work Phone: [facility] Work Phone: Start: 06-22-2022 Rx Renewal Ericka Villela Work Phone: MZ-Tpvmtsmzy-Qadesdi n Work Phone: Start: 06-09-2022 AUDIT Ericka Villela Work Phone: [facility] Work Phone: Start: 05-07-2022 AUDIT Ericka Villela Work Phone: [facility] Work Phone: Start: 05-05-2022 NPV, Provider: Kel Pozo, Status: Pen, Time: 10:10 AM Ericka Villela Work Phone: [facility] Work Phone: Start: 05-04-2022 Patient encounter procedure Stephen Villela Work Phone: [facility] Work Phone: Start: 04-29-2022 Office outpatient vi sit 25 minutes Ericka Villela Work Phone: [facility] Work Phone: Start: 2022 AUDIT Ericka Villela Work Phone: [facility] Work Phone: Start: 2022 Patient encounter procedure Stephen Villela Work Phone: [facility] Work Phone: Start: 04-03-2022 Chart Update Ericka Villela Work Phone: [facility] Work Phone: Start: 04-02-[address] Work Phone: [facility] Work Phone: Start: 03-30-2022 AUDIT Ericka Lamb Manohar Work Phone: [facility] Work Phone: Start: 03-27-2022 Chart Update Ericka M Manohar Work Phone: [facility] Work Phone: Start: 03-26-2022 Chart Update Ericka [address] Work Phone: [facility] Work Phone: Start: 03-24-2022 Office outpatient vi sit [address] Work Phone: [facility] Work Phone: Start: 03-09-2022 Patient encounter procedure Al fouzia Lamb Manohar Work Phone: [facility] Work Phone: Start: 02-18-2022 Office outpatient vi sit [address] Work Phone: [facility] Work Phone: Start: 02-09-2022 Patient encounter procedure Al fouzia [address] Work Phone: [facility] Work Phone: [...] Patient encounter procedure Stephen Villela Work Phone: UD-Gsqfdxnmu-QTWES [place] [address] Work Phone: Start: 12-31-2021 AUDIT Ericka Villela Work Phone: [facility] Work Phone: Start: 12-15-2021 Patient encounter procedure Stephen Villela Work Phone: [facility] Work Phone: Start: 11-17-2021 Patient encounter procedure Stephen Villela Work Phone: [facility] Work Phone: Start: 10-20-2021 Patient encounter procedure Stephen Villela Work Phone: [facility] Work Phone: Start: 09-22-2021 Patient encounter procedure Stephen Villela Work Phone: [facility] Work Phone: Start: 09-04-2021 FUV, Provider: Ericka Villela, Status: Pen, Time: 11:00 AM Ericka Villela Work Phone: [facility] Work Phone: Start: 09-03-2021 AUDIT Ericka Lamb Manohar Work Phone: [facility] Work Phone: Start: 08-26-2021 AUDIT Ericka Lamb Manohar Work Phone: [facility] Work Phone: Start: 07-28-2021 Office outpatient vi sit 25 minutes Ericka M Manohar Work Phone: [facility] Work Phone: Start: 07-25-2021 End: 07-25-2021 Subsequent hospital visit by physician Rivera Tan MD Work Phone: [facility] Start: 07-24-2021 End: 07-24-2021 Emergency department patient visit Rivera Tan MD Work Phone: [facility] ED Comment on above: Nausea, vomiting and diarrhea (Primary Dx); Dehydration Start: 07-22-2021 Chart Update Ericka Villela Work Phone: FH-Mkdkbtqjg-[address] Work Phone: Start: 07-15-2021 Office outpatient vi sit 15 minutes Ericka Villela Work Phone: RB-Pxtoaafkw-MHBXM [place] [address] Work Phone: Start: 07-15-2021 Patient encounter procedure Stephen [address] Work Phone: FU-Wvjdmkjwe-WXNIU [place] [address] Work Phone: Start: 07-15-2021 LEAH, Provider : Jovon Mckeon, Status: Pen, Time: 9:00 AM Ericka Villela Work Phone: ME-Gmmfajlgp-Aifsubi n Work Phone: Start: 07-14-[address] Work Phone: UN-Gymydoxwb-Klwyrwp n Work Phone: Start: 06-26-[address] Work Phone: VQ-Dqouyslch-QQZZH [place] [address] Work Phone: Start: 06-03-2021 Patient encounter procedure Stephen Lamb [address] Work Phone: [facility] Work Phone: Start: 05-14-2021 Chart Update Ericka [address] Work Phone: [facility] [employer] Work Phone: Start: 05-06-2021 Patient encounter procedure Al fouzia Lamb Manohar Work Phone: [facility] Work Phone: Start: 05-02-2021 Chart Update Ericka M Manohar Work Phone: [facility] [employer] Work Phone: Start: 04-30-2021 Office outpatient vi sit 15 minutes Ericka Lamb Manohar Work Phone: [facility] [employer] Work Phone: Start: 04-27-2021 Chart Update Ericka Lamb Manohar Work Phone: [facility] [employer] Work Phone: Start: 04-22-2021 AUDIT Ericka Villela Work Phone: [facility] [employer] Work Phone: Start: 04-02-2021 Office outpatient vi sit 25 minutes Ericka Lamb Manohar Work Phone: [facility] [employer] Work Phone: Start: 04-02-2021 Patient encounter procedure Al fouzia [address] Work Phone: [facility] [employer] Work Phone: Start: 02-26-2021 Nursing evaluation o f patient and report Ericka [facility]illela [facility] Work [facility]: Start: 01-31-2021 Nursing evaluation o f patient and report Ericka Villela MD RO-Vefibucmyekn-Ugvb [address] Work Phone: Start: 01-01-2021 Nursing evaluation o f patient and report Ericka Villela MD MV-Kjrujyfgjuil-Brsh [address] Work Phone: Start: 12-04-2020 Patient encounter procedure Ericka Ordaz MD HJ-Axihheldaxqu-Lnch [address] Work Phone: Start: 11-15-2020 Patient encounter procedure Ericka De nton [facility] Work Phone: Start: 11-06-2020 Nursing evaluation o f patient and report Ericka Lane PQ-Aeesbdvzm-IJZJK [facility] Work Phone: Start: 10-09-2020 Nursing evaluation o f patient and report Ericka Lane -[facility] Work Phone: Start: 09-11-2020 Nursing evaluation o f patient and report Ericka Lane [facility] Work Phone: Start: 08-12-2020 Patient encounter procedure Erickakingsley Nayloron -[facility] Work Phone: Start: 08-01-2020 Patient encounter procedure Erickakingsley Nayloron [facility] Work Phone: Start: 07-17-2020 Nursing evaluation o f patient and report Ericka Lane [facility] Work Phone: Start: 06-19-2020 Nursing evaluation o f patient and report Ericka Lane [facility] Work Phone: Start: 05-22-2020 Nursing [...] evaluation o f patient and report Ericka Lane [facility] Work Phone: Start: 01-18-2020 Patient encounter procedure Ericka De nton [facility] Work Phone: Start: 01-02-2020 Nursing evaluation o f patient and report Ericka Villela [facility] Work Phone: Start: 12-11-2019 End: 12-11-2019 Patient encounter procedure Rodríguez Capellan PA-C Work Phone: [facility] Work Phone: Start: 12-07-2019 Patient encounter procedure Ericka Ordaz DH-Mmhwmcyrepkj-Xoyg [address] Work Phone: Start: 12-05-2019 Nursing evaluation o f patient and report Ericka Villela [facility] Work Phone: Start: 11-23-2019 Patient encounter procedure [facility]ka Ordaz [facility] Work Phone: Start: 11-09-2019 Nursing evaluation o f patient and report Ericka Villela [facility] Work Phone: Start: 09-05-2019 Nursing evaluation o f patient and report Ericka Villela [facility] Work Phone: Start: 08-15-2019 Patient encounter procedure Ericka Ordaz [facility] Work Phone: Start: 07-11-2019 Nursing evaluation o f patient and report [facility] Work Phone: Start: 06-28-2019 Patient encounter procedure [facility] Work Phone: Start: 06-13-2019 Nursing evaluation o f patient and report [facility] Work Phone: Start: 05-16-2019 Nursing evaluation o f patient and report [facility] Work Phone: Start: 05-02-2019 Patient encounter procedure Ericka [facility] Work Phone: Start: 04-19-2019 Nursing evaluation o f patient and report [facility] Work Phone: Start: 04-18-2019 Nursing evaluation o f patient and report [facility] Work Phone: Start: 04-07-2019 Patient encounter procedure [facility] Work Phone: Start: 03-28-2019 Patient encounter procedure Ericka [facility] Work Phone: Start: 03-21-2019 Nursing evaluation o f patient and report Ericka [facility] Work Phone: Start: 03-08-2019 Patient encounter procedure Ericka De [facility] Work Phone: Start: 02-21-2019 Patient encounter procedure Ericka De [facility] Work Phone: Start: 01-24-2019 Nursing evaluation o f patient and report Ericka Villela [facility] Work Phone: Start: 01-02-2019 Nursing evaluation o f patient and report Ericka Villela [facility] Work Phone: Start: 12-27-2018 Nursing evaluation o f patient and report Ericka Villela [facility] Work Phone: Start: 12-02-2018 Nursing evaluation o f patient and report Ericka Villela [facility] Work Phone: Start: 11-01-2018 Patient encounter procedure Ericka Ordaz [facility] Work Phone: Start: 09-27-2018 Nursing evaluation o f patient and report Ericka Villela [facility] Work Phone: Start: 08-30-2018 Nursing evaluation o f patient and report Ericka [facility]illela [facility] Work Phone: Start: 08-08-2018 Nursing evaluation o f patient and report Ericka Villela [facility] Work Phone: Start: 08-04-2018 Nursing evaluation o f patient and report Ericka [facility]illela [facility] Work Phone: Start: 07-08-2018 Patient encounter procedure Ericka Ordaz [facility] Work Phone: Start: 06-06-2018 Nursing evaluation o f patient and report Ericka Villela [facility] Work Phone: Start: 05-23-2018 Patient encounter procedure Ericka Ordaz [facility] Work Phone: Start: 05-18-2018 Patient encounter procedure Ericka Ordaz [facility] Work Phone: Start: 05-09-2018 Patient encounter procedure Ericka rOdaz [facility] Work Phone: Start: 04-12-2018 Patient encounter procedure Ericka Ordaz [facility] Work Phone: Start: 03-31-2018 Patient encounter procedure Ericka Ordaz [facility] Work Phone: Start: 03-15-2018 Nursing evaluation o f patient and report Ericka Villela [facility] Work Phone: Start: 03-01-2018 Nursing evaluation o f patient and report Ericka Villela [facility] Work Phone: Start: 02-17-2018 Patient encounter procedure Ericka Ordaz [facility] Work Phone: Start: 02-15-2018 Nursing evaluation o f patient and report [facility] [facility] Work Phone: Start: 01-31-2018 Patient encounter procedure Ericka Ordaz [facility] Work Phone: Start: 01-18-2018 Nursing evaluation o f patient and report Ericka Villela [facility] Work Phone: Start: 12-23-2017 Patient encounter procedure Ericka Ordaz [facility] Work Phone: Start: 12-21-2017 Nursing evaluation o f patient and report Ericka Villela [facility] Work Phone: Start: 11-24-2017 [facility] Work Phone: Start: 11-24-2017 [facility] Work [facility]: Start: 11-23-2017 [facility] Work Phone: Start: 11-22-2017 Patient encounter procedure Ericka Ordaz [facility] Work Phone: Start: 10-27-2017 Nursing evaluation o f patient and report Ericka Villela [facility] Work Phone: Start: 10-06-2017 [facility] encounter [facility] Work Phone: Start: 09-28-2017 Nursing evaluation o f patient and report Ericka Villela [facility] Work Phone: Start: 08-31-2017 Nursing evaluation o f patient and report Ericka Villela [facility] Work Phone: Start: 08-16-2017 Patient encounter procedure [facility] Work Phone: Start: 08-03-2017 Patient encounter procedure Ericka Ordaz [facility] Work Phone: Start: 07-06-2017 Patient encounter procedure Ericka Ordaz [facility] Work Phone: Start: 06-08-2017 Nursing evaluation o f patient and report Ericka Villela [facility] Work Phone: Start: 05-25-2017 Nursing evaluation o f patient and report Ericka Villela [facility] Work Phone: Start: 05-11-2017 Nursing evaluation o f patient and report Ericka Villela [facility] Work Phone: Start: 05-03-2017 Patient encounter procedure [facility] Work Phone: Start: 04-13-2017 Nursing evaluation o f patient and report [facility]illela [facility] Work Phone: Start: 03-16-2017 Nursing evaluation o f patient and report Ericka [facility]illela [facility] Work Phone: Start: 03-10-2017 Patient encounter procedure [facility] Work Phone: Patient encounter status Ericka Villela MD [id number] an [id number] Work Phone: End: 04-24-2020 Patient encounter status Ericka M Manohar Work Phone: [facility] Work Phone: Procedures [...] stick/tabl et rgnt auto w/o microscopy Ericka Lane Start: 02-24-2019 Xray Bone Density, D exa 1 or More Sites Ericka Manohar Start: 02-21-2019 25 hydroxy includes fractions if performed Ericka Manohar Start: 02-21-2019 Albumin, Urine Spot Ali ce Manohar Start: 02-21-2019 CBC W Auto Different ial panel - Blood Ericka Lane Start: 02-21-2019 Comprehensive metabo lic 2000 panel Ericka Manohar Start: 02-21-2019 CT Cardiac Scoring Alic e Lane Start: 02-21-[address] Start: 02-21-2019 Lipid panel Ericka Barton on Start: 05-07-2019 TSH WITH REFLEX TO [...] Cornejo's, HH, antritis w/ bile relux05/13/17 Dr aSnchez 3cm HH, irreg Z line, RNY gastric [...] or Population) (1 - 1-dose 75+ series) [facility] Start: 2033 RSV Vaccine (1 - 1-dose 75+ series) RSV Vaccine (1 - 1-dose 75+ series) [facility] Start: 06-08-2032 Screening for malignant neoplasm of colon [facility] Start: 12-28-2028 Lipid panel Lipid Screening [facility] Start: 07-29-2028 DTaP/Tdap/Td Vaccines (2 - Td or Tdap) DTaP/Tdap/Td Vaccines (2 - Td or Tdap) [facility] Start: 07-29-2028 Urine microalbumin profile DTaP,Tdap,Td Vaccine (2 - Td or Tdap) [facility] Start: 09-20-2027 Diabetes Screening Diabetes Screening [facility] Start: 2027 Diabetes Screening Diabetes Screening [facility] Start: 01-10-2026 Screening for malignant neoplasm of breast [facility] Start: 01-09-2026 Screening for osteoporosis [facility] Start: 12-29-2025 Medicare Annual Wellness Visit Medicare Annual Wellnes s Visit (AWV) [facility] Start: 08-08-2025 End: 08-08-2025 Patient encounter procedure 08/08/2025 8:00 AM EDT Office Visit Orthopaedics [address] [address] Guillaume Merrill MD [address] [address] 6 m f/u, bilat knees [facility] Comment on above: 6 m f/u, bilat knees Start: 06-26-2025 End: 06-26-2025 Patient encounter procedure 06/26/2025 11:45 AM EDT Office Visit Orthopedics [address] [phone] Yehuda Kirk PA-C [address] [place] [address] 3 MO follow up ORIF R RADIUS SX 02/19/25 4wk f/u Orthopedics Comment on above: 3 MO follow up ORIF R RADIUS SX 02/19/25 4wk f/u Start: 04-19-2025 End: 04-19-2025 Patient encounter procedure 04/19/2025 11:00 AM EDT [facility] Visit [facility] [place] [phone] Ericka Villela MD [address] [employer], [facility] [address] [place] [address] [facility] Start: 03-27-2025 End: 03-27-2025 Patient encounter procedure [facility] Comment on above: PO ORIF R RADIUS SX 02/19/25 4wk f/u ORIF right radius Start: 03-22-2025 End: 03-22-2025 Clinical Support 03/22/2025 11:00 AM EDT Clinical Support [facility] [place] [phone] [facility] Start: 03-13-2025 End: 03-13-2025 ambulatory 03/13/2025 8:30 AM EDT OT/PT/Speech Visit [facility] [address] [place] [address] Cynthia Falcon, OTR/L [address] [place] [address] Transfer of Care/Closed Colles' fracture of left radius with routine healing, subsequent encounter [facility] Comment on above: Transfer of Care/Closed Colles' fracture of left radius with routine healing, subsequent encounter Start: 02-22-2025 End: 02-22-2025 Clinical Support 02/22/2025 11:00 AM EDT Clinical Support [facility] [place] [phone] [facility] Start: 02-19-2025 End: 02-19-2025 Admission to same day surgery center 02/19/2025 2:00 PM EDT - 02/19/2025 4:00 PM EDT Surgery DANTE RICHARD [address] [place] [address] Tomas Gramajo MD [address] [place] [address] ORIF DISTAL RADIUS THREE OR MORE FRAGMENTS [...] procedure 01/30/2025 1:40 PM EDT [facility] [address] [place] [phone] Marilee Wiseman MD [address] [place] [address] [facility] Start: 01-25-2025 End: 01-25-2025 Clinical Support 01/25/2025 11:00 AM EDT Clinical Support [facility] [address] [place] [phone] [facility] Start: 01-05-2025 Screening for malignant neoplasm of [facility] Start: 12-30-2024 Medicare Annual Wellness Visit Medicare Annual Wellnes s Visit (AWV) [facility] Start: 12-29-2024 Urine screening for protein Diabetes: Urine Protein Screening [facility] Start: 12-28-2024 Lipid panel Lipid Panel [facility] Start: 12-28-2024 End: 12-28-2024 Patient encounter procedure 12/28/2024 10:15 AM EDT [facility] Visit [facility] [address] [place] [address] Ericka Villela MD [address] [employer], [address] [place], [place] [phone] [facility] Start: 12-19-2024 End: 12-19-2024 Patient encounter procedure [facility] Start: 12-19-2024 End: 12-19-2025 XR Cervical spine 2 or 3 Views [facility] Serv ice Area Work Phone: Comment [...] serious comorbidity present Expected: 11/24/2024, Expires: 08/24/2025 [facility] Work Phone: Comment on above: Expected: 11/24/2024, Expires: Start: 11-24-2024 End: 08-24-2025 CBC panel - Blood by Automated count CBC Lab Routine Vitamin B12 deficiency Type 2 diabetes mellitus without complication, without long-term current use of insulin (Multi) Elevated alkaline phosphatase level Cervical radiculopathy Arthritis of wrist, right Gastroesophageal reflux disease without esophagitis Primary hypertension Expected: 11/24/2024, Expires: 08/24/2025 [facility] Work Phone: Comment on above: Expected: 11/24/2024, Expires: Start: 11-24-2024 End: 08-24-2025 Comprehensive metabolic 2000 panel - Serum or Plasma Comprehensive Metabolic Panel Lab Routine Vitamin B12 deficiency Type 2 diabetes mellitus without complication, without long-term current use of insulin (Multi) Elevated alkaline phosphatase level Cervical radiculopathy Arthritis of wrist, right Gastroesophageal reflux disease without esophagitis Primary hypertension Expected: 11/24/2024, Expires: 08/24/2025 [facility] Work Phone: Comment on above: Expected: 11/24/2024, Expires: Start: 11-24-2024 End: 08-24-2025 Hemoglobin A1c/Hemoglobin.total in Blood Hemoglobin A1C Lab Routine Vitamin B12 deficiency Type 2 diabetes mellitus without complication, without long-term current use of insulin (Multi) Elevated alkaline phosphatase level Cervical radiculopathy Arthritis of wrist, right Gastroesophageal reflux disease without esophagitis Primary hypertension Expected: 11/24/2024, Expires: 08/24/2025 [facility] Work Phone: Comment on above: Expected: 11/24/2024, Expires: Start: 11-24-2024 End: 08-24-2025 Lipid 1996 panel - Serum or Plasma Lipid Panel Lab Routine Vitamin B12 deficiency Type 2 diabetes mellitus without complication, without long-term current use of insulin (Multi) Elevated alkaline phosphatase level Cervical radiculopathy Arthritis of wrist, right Gastroesophageal reflux disease without esophagitis Primary hypertension Expected: 11/24/2024, Expires: 08/24/2025 [facility] Work Phone: Comment on above: Expected: 11/24/2024, Expires: Start: 11-24-2024 End: 08-24-2025 Microalbumin/Creatinine [Mass Ratio] in Urine Albumin-Creatinine Ratio, Urine Random Lab Routine Vitamin B12 deficiency Type 2 diabetes mellitus without complication, without long-term current use of insulin (Multi) Elevated alkaline phosphatase level Cervical radiculopathy Arthritis of wrist, right Gastroesophageal reflux disease without esophagitis Primary hypertension Expected: 11/24/2024, Expires: 08/24/2025 [facility] Service Area Work Phone: Comment on [...] esophagitis Primary hypertension Expected: 11/24/2024, Expires: 08/24/2025 [facility] Work Phone: Comment on above: Expected: 11/24/2024, Expires: Start: 11-16-2024 End: 11-16-2024 Clinical Support 11/16/2024 11:30 AM EST Clinical Support [facility] [place] [address] [facility] Start: 10-24-2024 End: 08-24-2025 TSH with reflex to Free T4 if abnormal TSH with reflex to Free T4 if abnormal Lab Routine Primary hypertension Other fatigue Expected: 10/24/2024 (Approximate), Expires: 08/24/2025 [facility] Work Phone: Comment on above: Expected: 10/24/2024 (Approximate), Expi res: 08/24/2025 Start: 10-19-2024 End: 10-19-2024 Clinical Support 10/19/2024 11:00 AM EST Clinical Support [facility] [place] [address] [facility] Start: 10-18-2024 Advance Directive Discussion Advance Directive Discussion [facility] Start: 09-26-2024 End: 09-26-2024 Telemedicine consultation with patient 09/26/2024 10:30 AM EST Telemedicine [facility] [address] [facility] 5th [place] [address] [place] [address] [place] [address] [facility] Start: 09-21-2024 End: 09-21-2024 Clinical Support 09/21/2024 11:00 AM EST Clinical Support [facility] [address] [place] [address] [facility] Start: 09-20-2024 End: 09-20-2024 Clinical Support 09/20/2024 10:00 AM EST Clinical Support [facility] [address] [place] [address] [facility] Start: 09-19-2024 End: 09-19-2024 Telemedicine consultation with patient 09/19/2024 10:30 AM EST Telemedicine [facility] [address] [facility] [address] [place] [address] [place] [address] [place] [address] [facility] Start: 09-01-2024 Hemoglobin A1c measurement Diabetes: Hemoglobin A1C [facility] Start: 08-25-2024 End: 08-25-2024 Telemedicine consultation with patient 08/25/2024 11:15 AM EST Telemedicine Clinical Support [facility] [address] [place] [phone] Alesha Hernandez, KEG INSPECTOR [address] [place] [address] [facility] Start: 08-24-2024 End: 08-24-2025 CBC panel - Blood by Automated count [facility] Work Phone: Comment on above: Expected: 08/24/2024 (Approximate), Expi res: 08/24/2025 Start: 08-24-2024 End: 08-24-2025 Comprehensive metabolic 2000 panel - Serum or Plasma [facility] Work Phone: Comment on above: Expected: 08/24/2024 (Approximate), Expi res: 08/24/2025 Start: 08-24-2024 End: 08-24-2024 Patient encounter procedure [facility] Start: 08-18-2024 End: 08-18-2024 Telemedicine consultation with patient 08/18/2024 9:45 AM EDT Telemedicine Clinical Support [facility] [address] [place] [address] Alesha Hernandez, KEG INSPECTOR [address] [place] [address] [facility] Start: 07-31-2024 End: 07-31-2024 Patient encounter procedure 07/31/2024 11:00 AM EDT Office Visit [facility] [address] [place] [address] [place] [address] [place], [place] [phone] [facility] Start: 07-27-2024 End: 07-27-2024 Clinical Support 07/27/2024 11:00 AM EDT Clinical Support [facility] [address] [place] [address] [facility] Start: 06-29-2024 End: 06-29-2024 Clinical Support 06/29/2024 11:00 AM EDT Clinical Support [facility] [address] [place] [address] [facility] Start: 06-18-2024 Covid-19 Vaccine (7 - 2024-25 season) Covid-19 Vaccine ( season) [facility] Start: 06-18-2024 Influenza vaccination Influenza Vaccine (#1) [facility] Start: 06-01-2024 End: 06-01-2024 Clinical Support 06/01/2024 11:00 AM EDT Clinical Support [facility] [place] [phone] [facility] Start: 05-04-2024 End: 05-04-2025 Hemoglobin A1c/Hemoglobin.total in Blood Hemoglobin A1C Lab Routine Type 2 diabetes mellitus without complication, without long-term current use of insulin (Multi) Expected: 05/04/2024 (Approximate), Expires: 05/04/2025 [facility] Service Area Work Phone: Comment on above: Expected: 05/04/2024 (Approximate), Expi res: 05/04/2025 Start: 05-04-2024 End: 05-04-2024 Patient encounter procedure 05/04/2024 2:00 PM EDT Office Visit [facility] [address] [place] [address] Ericka Villela MD [address] [employer] [place], [place] [phone] [facility] Start: 04-12-2024 End: 04-12-2024 Patient encounter procedure 04/12/2024 9:45 AM EDT Office Visit [facility] [address] [facility] 5th [place] [phone] [place] [address] Department [place] [address] [facility] Start: 03-30-2024 Hemoglobin A1c measurement Diabetes: Hemoglobin A1C [facility] Start: 01-26-2024 End: 01-26-2024 Clinical Support 01/26/2024 10:30 AM EDT Clinical Support [facility] [address] [place] [phone] [facility] Start: 01-24-2024 End: 01-24-2024 Patient encounter procedure 01/24/2024 11:45 AM EDT Office Visit [facility] [address] [place] [phone] [place] [address] [place] [address] [facility] Start: 01-10-2024 End: 01-10-2024 Patient encounter procedure 01/10/2024 10:30 AM EDT Appointment [facility] [address] [place] [phone] [facility] Start: 01-07-2024 End: 01-07-2024 Patient encounter procedure 01/07/2024 11:30 AM EDT Appointment [facility] [address] [place] [address] [facility] Start: 01-06-2024 End: 01-06-2024 Patient encounter procedure [facility] Start: 01-05-2024 End: 01-05-2024 Telemedicine consultation with patient 01/05/2024 11:00 AM EDT Telemedicine Clinical Support [facility] [address] [place] [address] Alesha Hernandez, KEG INSPECTOR [address] [place] [address] [facility] Start: 12-30-2023 End: 12-30-2023 Patient encounter procedure 12/30/2023 2:45 PM EDT Office Visit [facility] [address] [place] [phone] Ericka Villela MD [address] [employer], [address] [place] [address] [facility] Start: 12-30-2023 End: 02-28-2025 DBT Breast - bilateral BI mammo bilateral screening tomosynthesis Imaging Routine Screening mammogram for breast cancer Expected: 12/30/2023, Expires: 02/28/2025 [facility] Service Area Work Phone: Comment on above: Expected: 12/30/2023, Expires: Start: 12-30-2023 End: 12-29-2024 DXA Skeletal system Views for bone density XR DEXA bone density Imaging Routine Asymptomatic menopausal state Expected: 12/30/2023, Expires: 12/29/2024 [facility] Work Phone: Comment on above: Expected: 12/30/2023, Expires: 5 Start: 12-23-2023 End: 12-23-2023 Patient encounter procedure 12/23/2023 11:15 AM EST [facility] Visit [facility] [address] [phone] Ericka Villela MD [address] [employer], [address] [address] [facility] Start: 12-18-2023 Lipid panel Lipid Panel [facility] Start: 12-18-2023 Urine screening for protein Diabetes: Urine Protein Screening [facility] Start: 12-17-2023 End: 10-28-2024 25-hydroxyvitamin D3 [Mass/volume] in Serum or Plasma Vitamin D 25-Hydroxy,Total (for eval of Vitamin D levels) Lab Routine Age-related osteoporosis without current pathological fracture Gastroesophageal reflux disease without esophagitis Primary hypertension Vitamin D deficiency Vitamin B12 deficiency Type 2 diabetes mellitus without complication, without long-term current use of insulin ([facility]) Other vitamin B12 deficiency anemia Hypercholesterolemia Expected: 12/17/2023, Expires: 10/28/2024 [facility] Work Phone: Comment on above: Expected: 12/17/2023, [...] deficiency anemia Hypercholesterolemia Expected: 12/17/2023, Expires: 10/28/2024 [facility] Work Phone: Comment on above: Expected: 12/17/2023, Expires: Start: 12-17-2023 End: 10-28-2024 Comprehensive metabolic 2000 panel - Serum or Plasma Comprehensive Metabolic Panel Lab Routine Age-related osteoporosis without current pathological fracture Gastroesophageal reflux disease without esophagitis Primary hypertension Vitamin D deficiency Vitamin B12 deficiency Type 2 diabetes mellitus without complication, without long-term current use of insulin ([facility]) Other vitamin B12 deficiency anemia Hypercholesterolemia Expected: 12/17/2023, Expires: 10/28/2024 [facility] Work Phone: Comment on above: Expected: 12/17/2023, Expires: Start: 12-17-2023 End: 10-28-2024 Hemoglobin A1c/Hemoglobin.total in Blood Hemoglobin A1C Lab Routine Age-related osteoporosis without current pathological fracture Gastroesophageal reflux disease without esophagitis Primary hypertension Vitamin D deficiency Vitamin B12 deficiency Type 2 diabetes mellitus without complication, without long-term current use of insulin ([facility]) Other vitamin B12 deficiency anemia Hypercholesterolemia Expected: 12/17/2023, Expires: 10/28/2024 [facility] Work Phone: Comment on above: Expected: 12/17/2023, [...] deficiency anemia Hypercholesterolemia Expected: 12/17/2023, Expires: 10/28/2024 [facility] Service Area Work Phone: Comment on above: Expected: 12/17/2023, Expires: 5 Start: 12-17-2023 End: 10-28-2024 Microalbumin/Creatinine [Mass Ratio] in Urine Albumin , Urine Random Lab Routine Age-related osteoporosis without current pathological fracture Gastroesophageal reflux disease without esophagitis Primary hypertension Vitamin D deficiency Vitamin B12 deficiency Type 2 diabetes mellitus without complication, without long-term current use of insulin ([facility]) Other vitamin B12 deficiency anemia Hypercholesterolemia Expected: 12/17/2023, Expires: 10/28/2024 [facility] Work Phone: Comment on above: Expected: 12/17/2023, Expires: Start: 12-17-2023 End: 10-28-2024 Thyrotropin [Units/volume] in Serum or Plasma Thyroid Stimulating Hormone Lab Routine Age-related osteoporosis without current pathological fracture Gastroesophageal reflux disease without esophagitis Primary hypertension Vitamin D deficiency Vitamin B12 deficiency Type 2 diabetes mellitus without complication, without long-term current use of insulin ([facility]) Other vitamin B12 deficiency anemia Hypercholesterolemia Expected: 12/17/2023, Expires: 10/28/2024 [facility] Work Phone: Comment on above: Expected: 12/17/2023, Expires: Start: 11-29-2023 End: 11-29-2023 Patient encounter procedure 11/29/2023 11:00 AM EST Office Visit [facility] [address] [place] [phone] [place] [address] [place] [address] [facility] Start: 11-25-2023 End: 11-25-2023 Clinical Support 11/25/2023 10:45 AM EST Clinical Support [facility] [address] [place] [phone] [facility] Start: 10-28-2023 End: 10-28-2023 Patient encounter procedure 10/28/2023 10:30 AM EST Office Visit [facility] [address] [place] [phone] Ericka Villela MD [address] [employer], [address] [place] [address] [facility] Start: 10-18-2023 Advance Directive Discussion Advance Directive Discussion [facility] Start: 09-22-2023 End: 09-22-2023 Patient encounter procedure 09/22/2023 11:40 AM EST Appointment [facility] [address] [place] [address] [place] [address] [facility], [address] [place] [address] [facility] Start: 09-20-2023 End: 09-20-2023 ambulatory 09/20/2023 2:30 PM EST Evaluation [facility] [address] [place] [address] Alesha Hernandez, JOSÉ MIGUEL [address] [address] Department of Rehabilitation Services [place], [place] [phone] [facility] Start: 09-17-2023 End: 09-17-2023 Clinical Support [facility] Start: 09-06-2023 End: 09-06-2023 Patient encounter procedure 09/06/2023 11:00 AM EST Procedure Visit [facility] [address] [place] [address] [place] [address] [place], [place] [id number] [facility] Start: 08-31-2023 End: 08-31-2024 Creatinine [Mass/volume] in Serum or Plasma [facility] Work Phone: Comment on above: Expected: 08/31/2023 (Approximate), Expi res: 08/31/2024 Start: 08-31-2023 End: 08-31-2024 CT Neck W contrast IV CT soft tissue neck w IV contrast Imaging Routine Hoarseness or changing voice Paresis of left vocal fold Expected: 08/31/2023, Expires: 08/31/2024 [facility] Service Area Work Phone: Comment on above: Expected: 08/31/2023, Expires: 4 Start: 08-31-2023 End: 08-31-2024 Esophagogastroduodenoscopy EGD Endoscopy Routine Pharyngoesophageal dysphagia Expected: 08/31/2023, Expires: 08/31/2024 [facility] Work Phone: Comment on above: Expected: 08/31/2023, Expires: Start: 08-31-2023 End: 08-31-2023 Patient encounter procedure [facility] Start: 08-24-2023 End: 08-24-2023 Patient encounter procedure 08/24/2023 2:00 PM EST Office Visit [address] [phone] Jeremiah Pinto DMD, MD [address] [place] [address] [facility] Start: 08-19-2023 End: 08-19-2023 Patient encounter procedure 08/19/2023 10:30 AM EDT Office Visit [facility] [address] [phone] Ericka Villela MD [address] [employer], [facility] [address] [place] [address] [facility] Start: 07-28-2023 End: 07-28-2023 Patient encounter procedure 07/28/2023 11:00 AM EDT Appointment [facility] [address] [place] [address] [facility] Start: 07-22-2023 End: 07-22-2024 Erythrocyte sedimentation rate Sedimentation Rate Lab Routine Other dysphagia Hoarseness or changing voice Expected: 07/22/2023 (Approximate), Expires: 07/22/2024 [facility] Work Phone: Comment on above: Expected: 07/22/2023 (Approximate), Expi res: 07/22/2024 Start: 07-22-2023 End: 07-22-2024 Nuclear Ab [Presence] in Serum by Hep2 substrate EDWARD Lab Routine Other dysphagia Hoarseness or changing voice Expected: 07/22/2023 (Approximate), Expires: 07/22/2024 [facility] Work Phone: Comment on above: Expected: 07/22/2023 (Approximate), Expi res: 07/22/2024 Start: 07-22-2023 End: 07-22-2024 RF videography Hypopharynx and Esophagus Views for swallowing function W speech and W barium contrast PO FL modified barium swallow study Imaging Routine Other dysphagia Hoarseness or changing voice Expected: 07/22/2023, Expires: 07/22/2024 [facility] Service Area Work Phone: Comment on above: Expected: 07/22/2023, Expires: Start: 07-21-2023 NPV, Provider: Elijah Jose, Status: Pen, Time: 9:40 AM NPV, Provider: Elijah Jose, Status: Pen, Time: 9:40 AM [facility] [address] Work Phone: Start: 06-29-2023 VIRFUVYVETTE, Provider: Jovon Mckeon, Status: Pen, Time: 10:00 AM JERAMYFUMARIA ALEJANDRA, Provider: Jovon Mckeon, Status: Pen, Time: 10:00 AM [facility] [address] Work Phone: Start: 06-24-2023 End: 06-24-2023 Patient encounter procedure 06/24/2023 10:15 AM EDT Office Visit [facility] [address] [place] [phone] Ericka Villela MD [address] [employer], [address] [place] [address] [facility] Start: 06-18-2023 COVID-19 Vaccine () COVID-19 Vaccine () [facility] Start: 06-18-2023 Influenza vaccination Influenza Vaccine (#1) [facility] Start: 06-08-2023 Screening for malignant neoplasm of colon [facility] Start: 05-10-2023 End: 12-25-2023 DXA Skeletal system Views for bone density XR DEXA bone density Imaging Routine Age-related osteoporosis without current pathological fracture Expected: 05/10/2023, Expires: 12/25/2023 [facility] Service Area Work Phone: Comment on above: Expected: 05/10/2023, Expires: Start: 05-08-2023 Screening for osteoporosis Bone Density Scan [facility] Start: 04-24-2023 Screening for malignant neoplasm of cervix [facility] Start: 04-21-2023 Screening for malignant neoplasm of colon [facility] Start: 2023 Pneumococcal Vaccine: 65+ (2 of 2 - PCV) Pneumococcal Vaccine: 65+ (2 of 2 - PCV) [facility] Start: 03-24-2023 End: 03-24-2023 Clinical Support 03/24/2023 11:00 AM EDT Clinical Support [facility] [address] [place] [phone] [facility] Start: 03-19-2023 Hemoglobin A1c measurement Diabetes: Hemoglobin A1C [facility] Start: 12-24-2022 Patient encounter procedure MCRANNUAL, Provider: Ericka Villela, Status: Pen, Time: 10:15 AM -[facility] Work Phone: Start: 12-02-2022 COVID-19 Vaccine (6 - Booster for Pfizer series) COVID-19 Vaccine (6 - Booster for Pfizer series) [facility] Start: 12-02-2022 COVID-19 Vaccine (6 - Pfizer risk series) COVID-19 Vaccine (6 - Pfizer risk series) [facility] Start: 12-02-2022 COVID-19 Vaccine (6 - Pfizer series) COVID-19 Vaccine (6 - Pfizer series) [facility] Start: 11-26-2022 Nursing evaluation of patient and report NURSEVST, Provider: NURSE VISIT,IM ASSOC, Status: Pen, Time: 11:15 AM [facility] Work Phone: Start: 10-29-2022 Nursing evaluation of patient and report NURSEVST, Provider: NURSE VISIT,IM ASSOC, Status: Pen, Time: 11:15 AM [facility] Work Phone: Start: 10-01-2022 Nursing evaluation of patient and report NURSEVST, Provider: NURSE VISIT,IM ASSOC, Status: Pen, Time: 11:15 AM [facility] Work Phone: Start: 09-03-2022 FUV, Provider: Ericka Villela, Status: Pen, Time: 11:15 AM FUV, Provider: Ericka Villela, Status: Pen, Time: 11:15 AM [facility] Work Phone: Start: 08-24-2022 Nursing evaluation of patient and report NURSEVST, Provider: NURSE VISIT,IM ASSOC, Status: Pen, Time: 11:00 AM [facility] Work Phone: Start: 07-27-2022 Nursing evaluation of patient and report NURSEVST, Provider: NURSE VISIT,IM ASSOC, Status: Pen, Time: 11:00 AM [facility] Work Phone: Start: 07-24-2022 Creatinine measurement Creatinine monitoring [facility] Work Phone: Start: 07-24-2022 Potassium monitoring Potassium monitoring [facility] Work Phone: Start: 06-29-2022 Nursing evaluation of patient and report NURSEVST, Provider: NURSE VISIT,IM ASSOC, Status: Pen, Time: 11:00 AM [facility] Work Phone: Start: 06-01-2022 Nursing evaluation of patient and report NURSEVST, Provider: NURSE VISIT,IM ASSOC, Status: Pen, Time: 11:00 AM [facility] Work Phone: Start: 05-08-2022 Screening for osteoporosis Bone Density Scan [facility] Start: 05-05-2022 NPV, Provider: Kel Pozo, Status: Pen, Time: 10:10 AM NPV, Provider: Kel Pozo, Status: Pen, Time: 10:10 AM [facility] Work Phone: Start: 05-04-2022 Nursing evaluation of patient and report NURSEVST, Provider: NURSE VISIT,IM ASSOC, Status: Pen, Time: 11:00 AM [facility] Work Phone: Start: 04-29-2022 FUV, Provider: Ericka Villela, Status: Pen, Time: 11:15 AM FUV, Provider: Ericka Villela, Status: Pen, Time: 11:15 AM [facility] Work Phone: Start: 2022 Nursing evaluation of patient and report NURSEVST, Provider: NURSE VISIT,IM ASSOC, Status: Pen, Time: 11:00 AM [facility] Work Phone: Start: 03-09-2022 Nursing evaluation of patient and report NURSEVST, Provider: NURSE VISIT,IM ASSOC, Status: Pen, Time: 11:00 AM [facility] Work Phone: Start: 02-18-2022 FUV, Provider: Jovon Mckeon, Status: Pen, Time: 9:45 AM FUV, Provider: Jovon Mckeon, Status: Pen, Time: 9:45 AM [id number] Work Phone: Start: 02-09-2022 Nursing evaluation of patient and report NURSEVST, Provider: NURSE VISIT,IM ASSOC, Status: Pen, Time: 11:00 AM [facility] Work Phone: Start: 01-12-2022 Nursing evaluation of patient and report NURSEVST, Provider: NURSE VISIT,IM ASSOC, Status: Pen, Time: 11:00 AM [facility] Work Phone: Start: 01-01-2022 FUV, Provider: Ericka Villela, Status: Pen, Time: 11:00 AM FUV, Provider: Ericka Villela, Status: Pen, Time: 11:00 AM [facility] Work Phone: Start: 01-01-2022 Patient encounter procedure MCRANNUAL, Provider: Ericka Villela, Status: Pen, Time: 11:00 AM [facility] Work Phone: Start: 12-15-2021 Nursing evaluation of patient and report NURSEVST, Provider: NURSE VISIT,IM ASSOC, Status: Pen, Time: 11:00 AM [facility] Work Phone: Start: 11-17-2021 Nursing evaluation of patient and report NURSEVST, Provider: NURSE VISIT,IM ASSOC, Status: Pen, Time: 11:00 AM [facility] Work Phone: Start: 10-20-2021 Nursing evaluation of patient and report NURSEVST, Provider: NURSE VISIT,IM ASSOC, Status: Pen, Time: 11:00 AM [facility] Work Phone: Start: 09-22-2021 Nursing evaluation of patient and report NURSEVST, Provider: NURSE VISIT,IM ASSOC, Status: Pen, Time: 11:00 AM [facility] Work Phone: Start: 08-25-2021 EPV, Provider: Ericka Villela, Status: Pen, Time: 11:00 AM EPV, Provider: Ericka Villela, Status: Pen, Time: 11:00 AM [facility] Work Phone: Start: 08-06-2021 FUV, Provider: Jovon Mckeon, Status: Pen, Time: 9:45 AM FUV, Provider: Jovon Mckeon, Status: Pen, Time: 9:45 AM [id number] Work Phone: Start: 07-31-2021 FUV, Provider: Ericka Villela, Status: Pen, Time: 11:00 AM FUV, Provider: Ericka Villela, Status: Pen, Time: 11:00 AM [facility] Work Phone: Start: 07-25-2021 Screening for malignant neoplasm of breast Mammogram [facility] Start: 07-24-2021 End: 08-24-2021 Gastrointestinal Panel by DNA [facility] Work Phone: Comment on above: One Time for 1 Occurrences starting 04/2021 until 07/24/2021 Expected: 07/24/2021 , Expires: 08/24/2021 Start: 07-01-2021 Nursing evaluation of patient and report NURSEVST, Provider: NURSE VISIT,IM ASSOC, Status: Pen, Time: 11:00 AM [facility] Work Phone: Start: 06-18-2021 Influenza vaccination Flu vaccine (#1) [facility] Work Phone: Start: 06-03-2021 Nursing evaluation of patient and report NURSEVST, Provider: NURSE VISIT,IM ASSOC, Status: Pen, Time: 11:00 AM [facility] Work Phone: Start: 05-06-2021 Nursing evaluation of patient and report NURSEVST, Provider: NURSE VISIT,IM ASSOC, Status: Pen, Time: 11:15 AM [facility] Work Phone: Start: 04-19-2021 Xray Bone Density, Dexa 1 or More Sites [facility] Work Phone: Start: 12-11-2019 End: 12-11-2019 Appointment Appointment [facility] Work Phone: Start: 09-05-2019 Pneumococcal vaccination Pneumococcal Vaccine (2 of 2 - PCV) [facility] Start: 09-05-2019 Pneumococcal Vaccine: 50+ (2 of 2 - PCV) Pneumococcal Vaccine: 50+ (2 of 2 - PCV) [facility] Start: 09-05-2019 Pneumococcal Vaccine: 65+ Years (2 - PCV) Pneumococcal Vaccine: 65+ Years (2 - PCV) [facility] Start: 09-05-2019 Pneumococcal Vaccine: 65+ Years (2 of 2 - PCV) Pneumococcal Vaccine: 65+ Years (2 of 2 - PCV) [facility] Start: 09-05-2019 Pneumococcal Vaccine: Pediatrics (0 to 5 Years) and At-Risk Patients (6 to 64 Years) (2 - PCV) Pneumococcal Vaccine: Pediatrics (0 to 5 Years) and At-Risk Patients (6 to 64 Years) (2 - PCV) [facility] Start: 04-16-2019 25 hydroxy includes fractions if performed Vitamin D 25-Hydroxy [facility] Work Phone: Start: 04-16-2019 CBC W Auto Differential panel - Blood [facility] Work Phone: Start: 04-16-2019 HbA1c (Bld) [Mass fraction] Hemoglobin A1C [facility] Work Phone: Start: 04-16-2019 Lipid panel Lipid Panel [facility] Work Phone: Start: 03-31-2019 CT Cardiac Scoring [facility] Work Phone: Start: 02-24-2019 Xray Bone Density, Dexa 1 or More Sites [facility] Work Phone: Start: 08-26-2018 DTaP/Tdap/Td Vaccines (2 - Td or Tdap) DTaP/Tdap/Td Vaccines (2 - Td or Tdap) [facility] Start: 2018 RSV patients and/or patients aged 60+ years (1 - 1-dose 60+ series) RSV patients and/or patients aged 60+ years (1 - 1-dose 60+ series) [facility] Start: 2018 RSV Vaccine (1 - 1-dose 60+ series) RSV Vaccine (1 - 1-dose 60+ series) [facility] Start: 2018 RSV Vaccine (1 - Risk 60-74 years 1-dose series) RSV Vaccine (1 - Risk 60-74 years 1-dose series) [facility] Start: 2008 Zoster Vaccines (1 of 2) Zoster Vaccines (1 of 2) [facility] Start: 2003 Screening for malignant neoplasm of colon [facility] Start: 1979 Screening for malignant neoplasm of cervix [facility] Start: 1976 Annual PCP Team Chronic Disease Visit Annual PCP Team Chronic Disease Visit [facility] Start: 1976 Anxiety Screening Anxiety Screening [facility] Start: 1976 BP Controlled (<130/80) BP Controlled (<130/80) [facility] Start: 1976 Depression Screening Depression Screening [facility] Start: 1976 Hepatitis C screening Hepatitis C Screening [facility] Start: 1976 zzBP Controlled (<130/80) (Retired) zzBP Controlled (<130/80) (Retired) [facility] Start: 1968 Diabetic foot examination Diabetes: Foot Exam [facility] Start: 1968 Glaucoma screening Diabetes: Retinopathy Screening [facility] Start: 1968 Ophthalmic examination and evaluation Diabetes: Retinopathy Screening [facility] Start: 1959 MMR Vaccines (1 of 1 - Standard series) MMR Vaccines (1 of 1 - Standard series) [facility] Start: 1958 Annual wellness visit Medicare Initial Physical (IPPE) [facility] Start: 1958 HIV screening HIV Screening [facility] Start: 1958 Screening for malignant neoplasm of colon [facility] Start: 1958 Yearly Adult Physical Yearly Adult Physical [facility] Bacteria identified in Urine by Culture Urine Culture Microbiology Routine Urinary tract infection without hematuria, site unspecified Ordered: 03/07/2025 Urgent Care Work Phone: Comment on above: Ordered: 03/07/2025 End: 12-20-2023 Continuous Pulse oximetry, In Phase 1 [facility] Service Area Work Phone: Comment on above: Continuous until discontinued starting 0 12/20/2023 End: 01-06-2024 DBT Breast - bilateral [facility] Service Area Work Phone: Comment on above: Once for 1 Occurrences starting 01/06/20 24 until 01/06/2024 End: 01-10-2025 DBT Breast - bilateral [facility] Service Area Work Phone: Comment on above: Once for 1 Occurrences starting 01/11/20 until 01/10/2025 End: 09-22-2023 Moderate Sedation Moderate Sedation Procedures Routine Once for 1 Occurrences starting 09/22/2023 until 09/22/2023 [facility] Service Area Work Phone: Comment on above: Once for 1 Occurrences starting 09/22/20 until 09/22/2023 Optx dstl radl i-art ic fx/epiphysl sep 3 frag ORIF DISTAL RADIUS THREE OR MORE FRAGMENTS Closed fracture of distal end of left radius, unspecified fracture morphology, initial encounter [facility] Patient Education \cps-[id number]\CPS_ PtEducatio n\[facility]_FALL_PREVENTION.pd f [facility] [place] [facility] Work Phone: Surgical pathology study [facility] Work Phone: Comment on above: Release Upon Ordering for 1 Occurrences starting 09/22/2023 End: 10-25-2024 XR Cervical spine 4 or 5 Views [facility] ice Area Work Phone: Comment on above: Once for 1 Occurrences starting 10/25/19 until 10/25/2024 XR Wrist - left PA a nd Lateral and Oblique XR WRIST GENERAL 3V PA/LAT/OBL LEFT Radiology Routine Closed Colles' fracture of left radius, initial encounter 02/14/2025 3:08 PM EDT [facility] Work Phone: XR Wrist - left PA a nd Lateral and Oblique [facility] Work Phone: Comment on above: [facility]: [facility]25 [facility] Cyanocobalamin 1 000 MCG/ML Injection Solution Ordered: 05-Sep-2019 Held [facility] Work Phone: Cyanocobalamin 1 000 MCG/ML Injection Solution Ordered: 30-Jan-2020 Held [facility] Work Phone: NEGATED: Highlighted row has been ruled out! Planned Goals not documented [facility] Work Phone: Immunizations Immunization Date Immunization Notes Care Provider Fa ricardo 08-24-2024 influenza, high dose seasonal, preservative-free Ericka Villela MD Work Phone: [facility] Work Phone: 06-24-2023 Flu vaccine, quadrivalent, high-dose, preservative free, age 65y+ (FLUZONE) Ericka Villela MD Work Phone: [facility] Work Phone: 06-24-2023 influenza virus vacc ine, unspecified formulation Jovon Mckeon MD Work Phone: [facility] Work Phone: 10-07-2022 Pfizer COVID-19 Vac Bivalent 30 MCG/0.3ML Intramuscular Suspension Ericka Villela Work Phone: [id number] Work Phone: 10-07-2022 Pfizer Purple Cap SARS-CoV-2 Ericka Villela MD Work Phone: [facility] Work Phone: 09-03-2022 influenza, injectabl e, quadrivalent, preservative free; Translations: [Flulaval Quadrivalent 0.5 ML Intramuscular Suspension Prefilled Syringe] Ericka Villela Work Phone: [facility] Work Phone: Comment on above: Series: 09-03-2022 influenza, seasonal, injectable Ericka Villela MD Work Phone: [facility] Work Phone: 09-03-2022 influenza virus vacc ine, unspecified formulation Ericka Villela MD Work Phone: [facility] Work Phone: 03-08-2022 Comirnaty 30 MCG/0.3 ML Intramuscular Suspension Ericka Adonis Manohar Work Phone: -[facility] Work Phone: 01-06-2022 Pfizer Purple Cap SARS-CoV-2 Ericka Villela MD Work Phone: [facility] Work Phone: 07-28-2021 influenza, high dose seasonal, preservative-free; Translations: [Fluzone High-Dose 0.5 ML Intramuscular Suspension Prefilled Syringe] Ericka Villela Work Phone: [facility] Work Phone: Comment on above: Series: 06-16-2021 Pfizer-BioNTech COVI D-19 Vacc 30 MCG/0.3ML Intramuscular Suspension Ericka M Manohar Work Phone: [facility] 01-03-2021 Pfizer-BioNTech COVI D-19 Vacc 30 MCG/0.3ML Intramuscular Suspension Ericka Troncosoon Work Phone: [facility] 12-13-2020 Pfizer-BioNTech COVI D-19 Vacc 30 MCG/0.3ML Intramuscular Suspension Ericka Villela Work Phone: [facility] 08-12-2020 influenza, high dose seasonal, preservative-free; Translations: [Fluzone High-Dose 0.5 ML Intramuscular Suspension Prefilled Syringe] Ericka Villela -[facility] Work Phone: Comment on above: Series: 08-01-2020 zoster vaccine recombinant Ericka Villela [facility] Work Phone: Comment on above: Series: 08-01-2020 zoster vaccine, unspecified formulation Ericka Villela MD Work Phone: [facility] Work Phone: 06-03-2020 zoster vaccine recombinant Ericka Villela [facility] Work Phone: Comment on above: Series: 06-03-2020 zoster vaccine, unspecified formulation Ericka Villela MD Work Phone: [facility] Work Phone: 08-15-2019 Seasonal, quadrivale nt, recombinant, injectable influenza vaccine, preservative free; Translations: [Flublok Quadrivalent 0.5 ML Intramuscular Solution Prefilled Syringe] [facility] Work Phone: Comment on above: Series: 07-19-2019 influenza, high dose seasonal, preservative-free Ericka Villela MD Work Phone: [facility] Work Phone: 09-05-2018 pneumococcal polysaccharide vaccine, 23 valent Ericka Villela [facility] Work Phone: Comment on above: Series: 07-29-2018 tetanus toxoid, redu ju diphtheria toxoid, and acellular pertussis vaccine, adsorbed [facility] Comment on above: Series: 07-08-2018 influenza, high dose seasonal, preservative-free; Translations: [Fluzone High-Dose 0.5 ML Intramuscular Suspension Prefilled Syringe] Ericka Villela [facility] Work Phone: Comment on above: Series: 07-06-2017 influenza, injectabl e, quadrivalent, preservative free; Translations: [Fluzone Quadrivalent 0.5 ML Intramuscular Suspension] Ericka Villela [facility] Work Phone: Comment on above: Series: 07-28-2016 influenza, injectabl e, quadrivalent, preservative free; Translations: [Fluzone Quadrivalent 0.5 ML Intramuscular Suspension] [facility] Comment on above: Series: 07-29-2015 influenza, seasonal, injectable; Translations: [Flulaval INJ] Ericka Villela [facility] Work Phone: Comment on above: Series: 08-02-2014 influenza, injectabl e, quadrivalent, preservative free; Translations: [Fluzone Quadrivalent 0.5 ML Intramuscular Suspension] Ericka Villela [facility] Work Phone: Comment on above: Series: 08-02-2013 influenza virus vacc ine, unspecified formulation Ericka Villela MD Work Phone: [facility] Work Phone: 07-21-2012 influenza, seasonal, injectable; Translations: [Flulaval INJ] Ericka Villela [facility] Work Phone: Comment on above: Series: 07-23-2011 influenza, seasonal, injectable Ericka Villela MD Work Phone: [facility] Work Phone: 07-23-2011 influenza virus vacc ine, unspecified formulation Ericka Villela MD [facility] Work Phone: 07-23-2011 influenza, seasonal, injectable Ericka Villela [facility] Work Phone: 07-25-2010 influenza, seasonal, injectable Ericka Villela MD Work Phone: [facility] Work Phone: 07-25-2010 influenza virus vacc ine, unspecified formulation Ericka Villela MD [facility] Work Phone: 07-25-2010 influenza, seasonal, injectable Ericka Villela [facility] Work Phone: 10-30-2009 novel influenza-H1N1 -09, preservative-free, injectable Ericka Villela [facility] Work Phone: influenza virus vacc ine, unspecified formulation Ericka Villela Work Phone: [facility] Work Phone: Comment on above: 07-23-11 Series: 07-25-10 Series: novel influenza-H1N1 -09, preservative-free, injectable Ericka Villela Work Phone: [facility] Work Phone: Comment on above: 10-30-09 Series: Payers Date Payer Category Payer Medicare [id number] 2021 Medicare (Managed Care) [id number] 2021 Private Health Insurance [employer] A [facility] [id number] 2021-Present [address] [place] [address] [id number] 2021 Private Health Insurance [id number] 1960 Unknown [id number]. 1958 Unknown [id number] [id number]. 356 1958 Unknown [id number] [id number]. 356 1958 Unknown [id number]. 356 1958 Unknown [id number] [id number]. 1958 Unknown [id number]. 356 1958 Unknown [id number]. 356 1958 Unknown [id number]. 356 1958 Unknown [id number] [id number]. 356 1958 Unknown [id number] [id number]. 356 1958 Unknown [id number]. 1246 1958 Unknown [id number] [id number]. 1242 1958 Unknown [id number] 2.16.840.1.011550.3.579.2. 1242 1958 Unknown [id number] 2.16840.1.683169.3.579.2. 1242 1958 Unknown [id number] 2.840.1.978923.3.579.2. 1243 1958 Unknown [id number] 2.840.1.496671.3.579.2. 1243 1958 Unknown [id number] 2.840.1.070760.3.579.2. 1243 1958 Unknown [id number] 2.840.1.374883.3.579.2. 1243 1958 Unknown [id number] 2.840.1.589043.3.579.2. 1243 1958 Unknown [id number] 2.840.1.061392.3.579.2. 1243 1958 Unknown [id number] 2.840.1.028400.3.579.2. 1243 1958 Unknown [id number] 2.840.1.505713.3.579.2. 1243 1958 Unknown [id number] 2.840.1.630620.3.579.2. 1243 1958 Unknown [id number] 2.840.1.524525.3.579.2. 1243 1958 Unknown [id number] 2.840.1.546326.3.579.2. 1244 1958 Unknown [id number] 2.16.840.1.556575.3.579.2. 1243 1958 Unknown [id number] 2.16.840.1.864743.3.579.2. 1243 1958 Unknown [id number] 2.16.840.1.644884.3.579.2. 1243 1958 Unknown [id number] 2.16.840.1.510127.3.579.2. 1243 1958 Unknown [id number] 2.840.1.801756.3.579.2. 1243 1958 Unknown [id number] 2.840.1.071937.3.579.2. 1244 1958 Unknown [id number] 2.840.1.747018.3.579.2. 1244 1958 Unknown [id number] 2.840.1.823022.3.579.2. 1244 1958 Unknown [id number] 2.840.1.042716.3.579.2. 1244 1958 Unknown [id number] 2.840.1.898139.3.579.2. 1244 1958 Unknown [id number] 2.840.1.903123.3.579.2. 1244 1958 Unknown [id number] 2.840.1.662633.3.579.2. 1244 1958 Unknown [id number] 2.840.1.589684.3.579.2. 1244 1958 Unknown [id number] 2.16840.1.561990.3.579.2. 1244 1958 Unknown [id number] 2.840.1.685712.3.579.2. 1245 1958 Unknown [id number] 2.16.840.1.616556.3.579.2. 1245 1958 Unknown [id number] 2.16.840.1.331152.3.579.2. 1245 Unknown Social History Date Type Detail Facility - - [facility] Work Phone: Start: 12-24-2022 End: 12-28-2024 Never smoker Never smoker [facility] Work Phone: Start: 07-24-2021 End: 10-28-2023 Tobacco smoking status WYIS Never smoker [facility] Work Phone: Start: 07-24-2021 End: 10-28-2023 Tobacco use and exposure Never used [facility] Start: 07-24-2021 End: 03-27-2025 Alcohol intake Current non-drinker of alcohol (finding) [facility] Work Phone: Start: 1960 Sex Assigned At Not on file [facility] Work Phone: Start: 12-14-2022 End: 01-30-2025 Exposure to SARS-CoV-2 (event) Not sure [facility] History of tobacco use Passive smoker [facility] Work Phone: Start: 02-24-2023 End: 03-07-2025 Alcohol intake Lifetime non-drinker (finding) [facility] Work Phone: Start: 12-24-2022 End: 12-28-2024 Alcohol Use Disorder Identification Test - Consumption [AUDIT-C] [facility] Work Phone: How often to you hav e a drink containing alcohol? Never [facility] Work Phone: How many standard dr inks containing alcohol do you have on a typical day? Patient does not drink [facility] Work Phone: (I/We) worried elizabeth er (my/our) food would run out before (I/we) got money to buy more. Never true [facility] Work Phone: Has the [employer], or [employer] threatened to shut off services in your home in past 12Mo No [facility] Work Phone: Are you now , , , , never or living with a partner? Never [facility] Work Phone: Do you feel stress - tense, restless, nervous, or anxious, or unable to sleep at night because your mind is troubled all the time - these days [OSQ] To some extent [facility] Work Phone: Start: 08-14-2024 End: 03-22-2025 Exposure to SARS-CoV-2 (event) Unable to assess [facility] NEGATED: Highlighted rowStart: 12-11-2019 End: 12-11-2019 Employment detail Employment detail [facility] Work Phone: NEGATED: Highlighted rowStart: 12-11-2019 End: 12-11-2019 How many days of moderate to strenuous exercise, like a brisk walk, did you do in the last 7 days? How many days of moderate to strenuous exercise, like a brisk walk, did you do in the last 7 days? [facility] Work Phone: NEGATED: Highlighted rowStart: 12-11-2019 End: 12-11-2019 Assertion Never smoker [facility] Work Phone: NEGATED: Highlighted rowStart: NINF History of tobacco use Passive smoker [facility] Work Phone: Medical Equipment Procedure Code Equipment Code Equipment Origin al Text Equipment Identifier Dates Bone, Block Cortical 7 X 14 X 11 Case [id number] Start: 07-27-2017 Comment on above: Description: Convert ed from [facility]. Please see archived information for full log information. Generic Implant 01 Case [id number] Start: 07-27-2017 Comment on above: Description: Convert ed from [facility]. Please see archived information for full log information. Additional Information:0.5 putty DBX Screw, Distraction, 14 Mm Case [id number] Start: 07-27-2017 Comment on above: Description: Convert ed from [facility]. Please see archived information for full log information. Generic Implant 03 Case [id number] Start: 07-27-2017 Comment on above: Description: Convert ed from [facility]. Please see archived information for full log information. Additional Information:3.5 13mm screw Generic Implant 04 Case [id number] Start: 07-27-2017 Comment on above: Description: Convert ed from [facility]. Please see archived information for full log information. Additional Information:4.0 13mm screw Generic Implant 02 Case [id number] Start: 07-27-2017 Comment on above: Description: Convert ed from [facility]. Please see archived information for full log information. Additional Information:19mm plate Dash Bn Smpx P Radpq Fd Strl - [id number] Start: 08-01-2013 Comp Fem 3 Rt Kn Ps Dash Trthln - [id number] Start: 08-01-2013 Stem Fem 50mm 12 mm Dash Trthln - [id number] Start: 08-01-2013 Ins Tib 3 13mm K n X3 Ps Trthln - [id number] Start: 08-01-2013 Baseplt Tib Trth ln 3 Kn Total - [id number] Start: 08-01-2013 Plate Acu-Loc 2 Long Narrow Bone Proximal Distal Volar Radius - [id number] Start: 02-19-2025 Screw Acu-Loc 2 2.3mm Full Thread Titanium 16mm Bone Lock Nonsterile Hand - [id number] Start: 02-19-2025 Screw Acu-Loc 2 2.3mm Full Thread Gold Titanium 18mm Bone Lock Nonsterile - [id number] Start: 02-19-2025 Screw 3.5mm Hexalobe 11mm Bone Lock Sterile Elbow - [id number] Start: 02-19-2025 Screw 10mm Bone Nonlocking Hexalobe 3.5mm Nonsterile Elbow - [id number] Start: 02-19-2025 Screw Acu-Loc 2 Full Thread Gold Titanium 14mm Bone Lock 2.3mm Nonsterile - [id number] Start: 02-19-2025 Functional Status Date Assessment Result Facility 04-02-2014 Are you deaf, or do you have serious difficulty hearing No 04/02/2014 1:50 PM EDT Rose Carlin OCCA No [facility] 04-02-2014 Are you blind, or do you have serious difficulty seeing, even when wearing glasses No 04/02/2014 1:50 PM EDT Rose Carlin OCCA No [facility] 04-02-2014 Do you have serious difficulty walking or climbing stairs Yes 04/02/2014 1:50 PM EDT Rose Carlin OCCA Yes [facility] 04-02-2014 Do you have difficul ty dressing or bathing No 04/02/2014 1:50 PM EDT Rose Carlin OCCA No [facility] 04-02-2014 Because of a physica l, mental, or emotional condition, do you have difficulty doing errands alone such as visiting a physician's office or shopping No 04/02/2014 1:50 PM EDT Rose Carlin OCCA No [facility] NEGATED: Highlighted row Functional performance Functional status health issues are not documented [facility] Work Phone: Mental Status Date Assessment Result Facility 04-02-2014 Because of a physical, mental, or emotional condition, do you have serious difficulty concentrating, remembering, or making decisions No 04/02/2014 1:50 PM EDT Rose Carlin OCCA No [facility] NEGATED: Highlighted row Cognitive function [Interpretation] Cognitive status health issues are not documented Disease [facility] Work [facility]: Clinical [...] [facility] Professor of Neurology [facility] Virtual or Telephone Consent An interactive [...] appropriate clinical documentation. documented in this encounter [facility] Work Phone: 03-27-2025 History of Present illness [...] may be inappropriate. documented in this encounter [facility] 03-27-2025 Note HNO ID: [id number] Author: YEHUDA KIRK PA-C Service: ? Author Type: Physician Net Finisher Type: Progress Notes Filed: 03/27/2025 12:19 Note [...] words or phrases that may be inappropriate. 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 in (more content not included)... 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 documented in this encounter [facility] Work Phone: 03-01-2025 History of Present illness Narrative Program_ID:[id number] Access Code: [email or web address] URL: [email or web address] Date: 03-01-2025 Prepared By: Sabrina Xiong [...] by Name and Date of : Yes [facility] OCCUPATIONAL THERAPY [...] Planned: 12 Planned Treatment Interventions: Therapeutic exercise (94029), Therapeutic activities (70921), Manual therapy (59046), Self-detention management (60313), Patient/Family/Caregiver Education, Custom orthosis fabrication, Orthotics management and training (60361,94869) PLAN FOR NEXT VISIT:Orthosis adjustments as needed. 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 . Skilled [...] 1300 TAMMI Guzman,CHT documented in this encounter [facility] 03-01-2025 Note HNO ID: [id number] Author: SABRINA XIONG OTR/L Service: ? Author Type: Occupational Therapist Type: Progress Notes Filed: 03/01/2025 13:32 Note Text: Episode Visit Count: 1 Therapist That Will Accept/Oversee The Plan Of Care: Sabrina Xiong Start of Care Date: 03/01/25 Onset Date: 02/03/25 Plan of Care Certification Date: 03/01/25 Next Certification Due Date: 05/30/25 Patient Identified by Name and Date of : [place] [facility] OCCUPATIONAL THERAPY [...] Planned: 12 Planned Treatment Interventions: Therapeutic exercise (92074), Therapeutic activities (88099), Manual therapy (54084), Self-detention management (26849), Patient/Family/Caregiver Education, Custom orthosis fabrication, Orthotics management and training (81786,61466) PLAN FOR NEXT VISIT:Orthosis adjustments as needed. 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 [facility] 03-01-2025 Note HNO ID: [id number] Author: YEHUDA KIRK PA-C Service: ? Author Type: Physician Net Finisher Type: Progress Notes Filed: 03/01/2025 11:51 Note [...] Follow-up in 4 weeks with me in [place], x-rays Patient was also evaluated by Dr [...] words or phrases that may be inappropriate. [facility] 03-01-2025 History of Present illness Narrative Images [...] no signs of loosening or complication. Assessment/Plan: (T94.247G) Closed Colles' fracture of left radius with [...] Follow-up in 4 weeks with me in [place], x-rays Patient was also evaluated by Dr [...] may be inappropriate. documented in this encounter [facility] 02-19-2025 Note HNO ID: [id number] Author: VIDYA ADAMS RN Service: ? Author Type: Registered Nurse Type: Nursing Progress Note Filed: 02/19/2025 15:53 Note Text: Sister in law Sanches called and updated. She will be returning to the surgery center. [facility] 02-19-2025 Note HNO ID: [id number] Author: VIDYA ADAMS RN Service: ? Author Type: Registered Nurse Type: Nursing Progress Note Filed: 02/19/2025 15:52 Note Text: Dr. Gramajo speaking with patient at bedside. [facility] 02-19-2025 Note HNO ID: [id number] Author: GERMAINE TRAYLOR APRN.CRNA Service: Anesthesiology Author Type: Nurse Communication Center Coordinator Type: Anesthesia Procedure Notes Filed: 02/19/2025 13:40 Note Text: ANESTHESIOLOGY PROCEDURE NOTE Airway General Information Procedure Start Time/Medication Administration: 02/19/2025 1:23 PM Procedure End Time: 02/19/2025 1:23 PM Patient location during procedure: OR Timeout Performed Pre-procedure: timeout performed Consent Obtained: Yes Patient identity confirmed: arm band and patient Staffing Anesthesiologist: Ugo Khan MD PHARMACY CLINICAL COORDINATOR: eGrmaine Traylor APRN.PHARMACY CLINICAL COORDINATOR Performed by: anesthesiologist Indications and Patient Condition Indications for airway management: anesthesia Preoxygenated: yes anesthesia circuit Patient position: sniffing Method: asleep Final Airway Details Final airway type: supraglottic airway Number of attempts at approach: 1 Final Supraglottic Airway: i-gel Size 4 Seal Adequate: yes SIGNATURE: Germaine Traylor APRN.PHARMACY CLINICAL COORDINATOR PATIENT NAME: Porsha House DATE: February 19, 2025 TIME: 1:39 PM CSN: [id number] [facility] 02-17-2025 History of Present illness Narrative Subjective [...] hand and is scheduled for surgery at [facility] on Wednesday. Noticed the sore on [...] health status 12/23/2017 History of cough Other spooler rubber strand (current) drug therapy 07/15/2021 High risk medication use Other intermediate (current) drug therapy High risk medication use [...] WISDOM TOOTH EXTRACTION documented in this encounter [facility] Work Phone: 02-17-2025 Instructions JOHNNY Velasquez - [...] of worsening infection documented in this encounter [facility] Work Phone: 02-16-2025 Telephone encounter Note PATIENT PREOPERATIVE INSTRUCTIONS No ref. provider found has scheduled you for your procedure at this surgery center: [facility] [address] [place] [address], [facility] [address] [address] Please read below carefully for your personalized [...] surgery. - YOU MUST HAVE A RESPONSIBLE NETWORK OPERATIONS TECHNICIAN 18 YEARS OR OLDER TAKE YOU HOME. A SENSOR TECHNICIAN, CAB OR UBER NETWORK OPERATIONS TECHNICIAN CANNOT BE MADE A RESPONSIBLE NETWORK OPERATIONS TECHNICIAN. - We recommend that a responsible person stays with you overnight to take care of you. - You cannot stay in a hotel alone after outpatient surgery. You will not be permitted to have your surgery, if you do not have someone to take care of you. --IF you are having a TOTAL KNEE, HIP REPLACEMENT OR ORTHOPEDIC SURGERY at the [facility]: - Orthopedic patients needing [...] Advance Directive, please fax a copy to [phone] or email to for it to be [...] your chart that day. Jasmine Stack APRN.CNP [facility] 02-16-2025 Miscellaneous Notes PATIENT PREOPERATIVE INSTRUCTIONS No ref. provider found has scheduled you for your procedure at this surgery center: [facility] [address] [place] [address], [facility] [address] [address] Please read below carefully for your personalized [...] - Stop Vitamin E, fish oil, Ginko, Mertzon's Wort, flax seed oil, multivitamins, CBD oil, [...] surgery. - YOU MUST HAVE A RESPONSIBLE NETWORK OPERATIONS TECHNICIAN 18 YEARS OR OLDER TAKE YOU HOME. A SENSOR TECHNICIAN, CAB OR UBER NETWORK OPERATIONS TECHNICIAN CANNOT BE MADE A RESPONSIBLE NETWORK OPERATIONS TECHNICIAN. - We recommend that a responsible person stays with you overnight to take care of you. - You cannot stay in a hotel alone after outpatient surgery. You will not be permitted to have your surgery, if you do not have someone to take care of you. --IF you are having a TOTAL KNEE, HIP REPLACEMENT OR ORTHOPEDIC SURGERY at the [facility] [place]: - Orthopedic patients needing a walker, crutches, [...] Advance Directive, please fax a copy to [phone] or email to for it to be [...] Jasmine Stack APRN.JAHAIRA documented in this encounter [facility] 02-14-2025 Note HNO ID: [id number] Author: GUILLAUME MERRILL MD Service: ? Author [...] oxycodone issued until definitive care with the network pricing consultant can be arranged [facility] 02-14-2025 History of Present illness Narrative here [...] oxycodone issued until definitive care with the network pricing consultant can be arranged documented in this encounter [facility] 02-14-2025 History of Present illness Narrative Radiology [...] PATIENT PRESENTS WITH AN IMPLANTABLE OR ATTACHED PRAWN TRAWLER HAND: No RADIOLOGY DEPARTMENT: General X-ray: Exam(s) Completed: Upper Extremity X-Ray(s): Wrist, left PERIPHERAL IV DATA: Not applicable SIGNED BY: Tari Gan February 14, 2025 3:09 PM documented in this encounter [facility] 02-14-2025 Note HNO ID: [id number] Author: TRISTON REEDER Tech Service: ? Author Type: Freight Car Cleaner [employer] Type: Progress Notes Filed: 02/14/2025 15:09 Note [...] PATIENT PRESENTS WITH AN IMPLANTABLE OR ATTACHED PRAWN TRAWLER HAND: No RADIOLOGY DEPARTMENT: General X-ray: Exam(s) Completed: Upper Extremity X-Ray(s): Wrist, left PERIPHERAL IV DATA: Not applicable SIGNED BY: Tari Gan February 14, 2025 3:09 PM [facility] 02-09-2025 Note HNO ID: [id number] Author: RICO WOLF Cast Tech Service: ? Author Type: Bottle Inspector Type: Progress Notes Filed: 02/09/2025 10:21 Note Text: PT ASSESSMENT - CASTING ROOM Porsha presents for Application of cast. Applied short cast: to Left arm Patient has been instructed in Care of cast.. Tarun Hannon [facility] 02-09-2025 Note HNO ID: [id number] Author: GUILLAUME MERRILL MD Service: ? Author [...] for pain, 7 days supply, sent to [facility] in [place]. - Advised patient to monitor for worsening numbness, tingling, or pain and to report any significant changes immediately. Attestation Recording using [employer] software for draft documentation of the visit was discussed with the patient/authorized u.s. representative; all questions welcomed and answered. Patient/authorized u.s. representative agreed to proceed [facility] 02-09-2025 History of Present illness Narrative Janie [...] Colles' fracture of left radius, initial encounter (S52.718A) - Fracture is well-aligned on imaging, though [...] for pain, 7 days supply, sent to [facility] in [place]. - Advised patient to monitor for worsening numbness, tingling, or pain and to report any significant changes immediately. Attestation Recording using [employer] software for draft documentation of the visit was discussed with the patient/authorized u.s. representative; all questions welcomed and answered. Patient/authorized u.s. representative agreed to proceed documented in this encounter [facility] 02-05-2025 Telephone encounter Note Spoke with patient. Appointment scheduled. [facility] 02-05-2025 Miscellaneous Notes Spoke with patient. Appointment scheduled. 9:WednesdayFebruary 09 Patient seen in [facility] on 02/03/2025 in regards to worsening 02/03/2025 Dr. 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 Merrill or another provider be willing to see patient in regards to their injury? Patient can be reached at [phone] Thank You! documented in this encounter [facility] 02-05-2025 Telephone encounter Note 9:WednesdayFebruary 09 [facility] 02-03-2025 Telephone encounter Note Patient seen in [facility] on 02/03/2025 in regards to worsening 02/03/2025 Dr. 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 Merrill or another provider be willing to see patient in regards to their injury? Patient can be reached at [phone] Thank You! [facility] 01-31-2025 Note HNO ID: [id number] Author: GUILLAUME MERRILL MD Service: ? Author [...] these instructions. Informed Consent Consent Obtained: Verbal [place] Protocol A moment to CARE was completed. [...] changes; continue current management. Attestation Recording using [employer] software for draft documentation of the visit was discussed with the patient/authorized u.s. representative; all questions welcomed and answered. Patient/authorized u.s. representative agreed to proceed [facility] 01-31-2025 History of Present illness Narrative Associated [...] these instructions. Informed Consent Consent Obtained: Verbal [place] Protocol A moment to CARE was completed. [...] changes; continue current management. Attestation Recording using [employer] software for draft documentation of the visit was discussed with the patient/authorized u.s. representative; all questions welcomed and answered. Patient/authorized u.s. representative agreed to proceed documented in this encounter [facility] 01-30-2025 History of Present illness Narrative Follow [...] 8) Future treatment considerations: Further medication management, [facility] referral, TPI, cervical MRI, - Discussed future [...] Wiseman MD Fellow [facility], PM&R [facility] [place] 12/19/2024: Tizanidine was helpful, wanted to continue [...] physician supervised home exercise program (HEP): 4. Bleacher Lard: None Passive conservative therapy in the last six months (see below) 1. NSAIDS: Cannot take NSAIDS 2. Prescription pain medication: Tizanidine 3. Acupuncture: No 4. 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 Do not crush or chew. Patient not taking: Reported on 12/28/2024 Claude Thompson PA-C Active calcium carbonate 600 mg calcium (1,500 mg) tablet [id number] Yes Take by mouth. Historical ProviderMD Taking Active cholecalciferol (Vitamin D3) 5,000 Units tablet [id number] Yes Take 1 tablet (5,000 Units) by mouth once daily. Historical ProviderMD Taking Active cyanocobalamin (Vitamin B-12) 1,000 mcg/mL injection [id number] Yes Inject 1 mL (1,000 mcg) into the muscle. Historical ProviderMD Taking Active cyanocobalamin (Vitamin B-12) injection 1,000 mcg [id number] Ericka Villela MD Active cyanocobalamin, vitamin B-12, (B-12 COMPLIANCE INJ) [id number] Yes B12 INJECTIONS Historical Provider, Taking Active denosumab (Prolia) 60 mg/mL syringe [id number] No Inject 1 mL (60 mg total) under the skin 1 time for 1 dose. To be administered in office Ericka Villela MD Taking 09/19/24 9825 lisinopril 10 mg tablet [id number] Yes TAKE 1 TABLET BY MOUTH ONCE DAILY USE DIRECTED Ericka Villela MD Active nystatin (Mycostatin) 100,000 unit/gram powder [id number] Yes Apply topically 2 times a day. Apply sparingly to affected area(s) Ericka Villela MD Taking Active pantoprazole (ProtoNix) 40 mg EC tablet [id number] Yes Take 1 tablet (40 mg) by mouth once daily in the morning. Take before meals. Ericka Villela MD Active potassium chloride CR 10 mEq ER tablet [id number] Yes Take 1 tablet (10 mEq) by mouth once daily. Armen Foote MD Taking Active pregabalin (Lyrica) 75 mg capsule [id number] Yes Take 1 capsule (75 mg) by mouth once daily. Jovon Mckeon MD Active vitamin, iron-folic, () 27 mg iron-800 mcg folic acid tablet [id number] Yes Take 1 tablet by mouth once daily. Ericka Villela MD Taking Active sertraline (Zoloft) 50 mg tablet [id number] Yes Take 1 tablet (50 mg) by mouth once daily. as directed Ericka Villela MD Active sertraline (Zoloft) 50 mg tablet [id number] Take 1 tablet (50 mg) by mouth once daily. as directed Patient not taking: Reported on 12/28/2024 Ericka Villela MD Active tiZANidine (Zanaflex) 4 mg tablet [id number] Yes Take 1 tablet (4 mg) by [...] 20 min Stress: Stress Concern Present (12/28/2024) [employer] [place] [employer] - Occupational Stress Questionnaire Feeling of Stress : To some extent Social Connections: Socially Isolated (12/28/2024) Social Connection and Isolation Panel [NHANES] Frequency of Communication with Friends and Family: More than three times a week Frequency of Social Gatherings with Friends and Family: Twice a week Attends Jewish Services: Never Active Member of Clubs or [...] WISDOM TOOTH EXTRACTION documented in this encounter [facility] Work Phone: 12-19-2024 History of Present illness [...] 8) Future treatment considerations: Further medication management, [facility] referral, TPI, cervical MRI, - Discussed future [...] Wiseman MD Fellow [facility], PM&R [facility] Update 12/19/2024: Patient fell approximately mid November [...] physician supervised home exercise program (HEP): 4. Bleacher Lard: None Passive conservative therapy in the last six months (see below) 1. NSAIDS: Cannot take NSAIDS 2. Prescription pain medication: Tizanidine 3. Acupuncture: No 4. 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 Do not crush or chew. Claude Thompson PA-C Active calcium carbonate 600 mg calcium (1,500 mg) tablet [id number] No Take by mouth. Historical ProviderMD Taking Active cholecalciferol (Vitamin D3) 5,000 Units tablet [id number] No Take 1 tablet (5,000 Units) by mouth once daily. Historical ProviderMD Taking Active cyanocobalamin (Vitamin B-12) 1,000 mcg/mL injection [id number] No Inject 1 mL (1,000 mcg) into the muscle. Armen ProviderMD Taking Active cyanocobalamin, vitamin B-12, (B-12 COMPLIANCE INJ) [id number] No B12 INJECTIONS Armen ProviderMD Taking Active denosumab (Prolia) 60 mg/mL syringe [id number] No Inject 1 mL (60 mg total) under the skin 1 time for 1 dose. To be administered in office Ericka Villela MD Taking 09/19/24 2359 lisinopril 10 mg tablet [id number] TAKE 1 TABLET BY MOUTH ONCE DAILY USE DIRECTED Ericka Villela MD Active nystatin (Mycostatin) 100,000 unit/gram powder [id number] No Apply topically 2 times a day. Apply sparingly to affected area(s) Ericka Villela MD Taking Active pantoprazole (ProtoNix) 40 mg EC tablet [id number] Take 1 tablet (40 mg) by mouth once daily in the morning. Take before meals. Ericka Villela MD Active potassium chloride CR 10 mEq ER tablet [id number] No Take 1 tablet (10 mEq) by mouth once daily. Armen Foote MD Taking Active pregabalin (Lyrica) 75 mg capsule [id number] Take 1 capsule (75 mg) by mouth once daily. Jovon Mckeon MD Active vitamin, iron-folic, () 27 mg iron-800 mcg folic acid tablet [id number] No Take 1 tablet by mouth once daily. Ericka Villela MD Taking Active sertraline (Zoloft) 50 mg tablet [id number] Take 1 tablet (50 mg) by mouth once daily. as directed Ericka Villela MD Active sertraline (Zoloft) 50 mg tablet [id number] Take 1 tablet (50 mg) by mouth once daily. as directed Ericka Villela MD Active tiZANidine (Zanaflex) 4 mg tablet [id number] Take 1 tablet (4 mg) by mouth [...] 40 min Stress: Stress Concern Present (12/30/2023) [employer] [place] [employer] - Occupational Stress Questionnaire Feeling of Stress : To some extent Social Connections: Socially Isolated (12/30/2023) Social Connection and Isolation Panel [NHANES] Frequency of Communication with Friends and Family: More than three times a week Frequency of Social Gatherings with Friends and Family: Twice a week Attends Jewish Services: Never Active Member of Clubs or [...] WISDOM TOOTH EXTRACTION documented in this encounter [facility] Work Phone: 11-07-2024 History of Present illness [...] 8) Future treatment considerations: Further medication management, [facility] referral, TPI, cervical MRI Patient advised of [...] Wiseman MD Fellow [facility], PM&R [facility] Porsha House is a 64 y.o. female [...] physician supervised home exercise program (HEP): 4. Bleacher Lard: None Passive conservative therapy in the last [...] health status 12/23/2017 History of cough Other intermediate (current) drug therapy 07/15/2021 High risk medication use Other intermediate (current) drug therapy High risk medication use [...] Dose Status atorvastatin (Lipitor) 10 mg tablet [id number] TAKE 1 TABLET BY MOUTH ONCE DAILY Ericka Villela MD Active benzonatate (Tessalon) 200 mg capsule [id number] Take 1 capsule (200 mg) by mouth 3 times a day as needed for cough for up to 30 doses. Do not crush or chew. Claude Thompson PA-C Active calcium carbonate 600 mg calcium (1,500 mg) tablet [id number] No Take by mouth. Historical Provider, Taking Active cholecalciferol (Vitamin D3) 5,000 Units tablet [id number] No Take 1 tablet (5,000 Units) by mouth once daily. Historical Provider, Taking Active cyanocobalamin (Vitamin B-12) 1,000 mcg/mL injection [id number] No Inject 1 mL (1,000 mcg) into the muscle. Historical Provider, Taking Active cyanocobalamin, vitamin B-12, (B-12 COMPLIANCE INJ) [id number] No B12 INJECTIONS Historical Provider, Taking Active denosumab (Prolia) 60 mg/mL syringe [id number] No Inject 1 mL (60 mg total) under the skin 1 time for 1 dose. To be administered in office Ericka Villela MD Taking 09/19/24 8759 lisinopril 10 mg tablet [id number] TAKE 1 TABLET BY MOUTH ONCE DAILY USE DIRECTED Ericka Villela MD Active Patient not taking: Discontinued 11/07/24 1552 nystatin (Mycostatin) 100,000 unit/gram powder [id number] No Apply topically 2 times a day. Apply sparingly to affected area(s) Ericka Villela MD Taking Active pantoprazole (ProtoNix) 40 mg EC tablet [id number] Take 1 tablet (40 mg) by mouth once daily in the morning. Take before meals. Ericka Villela MD Active potassium chloride CR 10 mEq ER tablet [id number] No Take 1 tablet (10 mEq) by mouth once daily. Armen Foote MD Taking Active pregabalin (Lyrica) 75 mg capsule [id number] Take 1 capsule (75 mg) by mouth once daily. Jovon Mckeon MD Active vitamin, iron-folic, () 27 mg iron-800 mcg folic acid tablet [id number] No Take 1 tablet by mouth once daily. Ericka Villela MD Taking Active sertraline (Zoloft) 50 mg tablet [id number] Take 1 tablet (50 mg) by mouth once daily. as directed Ericka Villela MD Active sertraline (Zoloft) 50 mg tablet [id number] Take 1 tablet (50 mg) by mouth once daily. as directed Ericka Villela MD Active tiZANidine (Zanaflex) 2 mg tablet [id number] Take 1 tablet (2 mg) by mouth every 6 hours if needed for muscle spasms for up to 10 days. Ericka Villela MD 11/04/24 9664 Allergies Allergen Reactions Ibuprofen Swelling, Anaphylaxis, Rash [...] 40 min Stress: Stress Concern Present (12/30/2023) [employer] [place] [employer] - Occupational Stress Questionnaire Feeling of Stress : To some extent Social Connections: Socially Isolated (12/30/2023) Social Connection and Isolation Panel [NHANES] Frequency of Communication with Friends and Family: More than three times a week Frequency of Social Gatherings with Friends and Family: Twice a week Attends Jewish Services: Never Active Member of Clubs or [...] WISDOM TOOTH EXTRACTION documented in this encounter [facility] Work Phone: 10-25-2024 Evaluation + Plan note [...] not any new fractures since the fall. [facility] Work Phone: 10-25-2024 Miscellaneous Notes Associated Problem(s): [...] appointment in December documented in this encounter [facility] Work Phone: 10-25-2024 Evaluation + Plan note Associated Problem(s): Diabetes mellitus (Multi) Patient already has annual labs ordered and she was asked to go get fasting labs before her follow-up appointment in December [facility] Work Phone: 10-25-2024 History of Present illness Narrative Subjective Patient ID: Porsha House is a 64 y.o. female who presents for follow up for HTN, cholesterol, and diabetes management. Also right shoulder pain. Patient is identified as a fall risk and is actually here for follow-up follow-up. On October 14 the patient was at [facility] parking lot when she was trying to [...] Dose Status atorvastatin (Lipitor) 10 mg tablet [id number] TAKE 1 TABLET BY MOUTH ONCE DAILY Ericka Villela MD Active benzonatate (Tessalon) 200 mg capsule [id number] Take 1 capsule (200 mg) by mouth 3 times a day as needed for cough for up to 30 doses. Do not crush or chew. Claude Thompson PA-C Active calcium carbonate 600 mg calcium (1,500 mg) tablet [id number] No Take by mouth. Armen Foote MD Taking Active cholecalciferol (Vitamin D3) 5,000 Units tablet [id number] No Take 1 tablet (5,000 Units) by mouth once daily. Armen Foote MD Taking Active cyanocobalamin (Vitamin B-12) 1,000 mcg/mL injection [id number] No Inject 1 mL (1,000 mcg) into the muscle. Armen Foote MD Taking Active cyanocobalamin, vitamin B-12, (B-12 COMPLIANCE INJ) [id number] No B12 INJECTIONS Armen Foote MD Taking Active denosumab (Prolia) 60 mg/mL syringe [id number] No Inject 1 mL (60 mg total) under the skin 1 time for 1 dose. To be administered in office Ericka Villela MD Taking 09/19/24 2359 lisinopril 10 mg tablet [id number] TAKE 1 TABLET BY MOUTH ONCE DAILY USE DIRECTED Ericka Villela MD Active loratadine (Claritin Reditabs) 10 mg disintegrating tablet [id number] No Take 1 tablet (10 mg) by mouth once daily. Patient not taking: Reported on 09/19/2024 Historical Provider, Not Taking Active nystatin (Mycostatin) 100,000 unit/gram powder [id number] No Apply topically 2 times a day. Apply sparingly to affected area(s) Ericka Villela MD Taking Active pantoprazole (ProtoNix) 40 mg EC tablet [id number] Take 1 tablet (40 mg) by mouth once daily in the morning. Take before meals. Ericka Villela MD Active potassium chloride CR 10 mEq ER tablet [id number] No Take 1 tablet (10 mEq) by mouth once daily. Historical Provider, Taking Active pregabalin (Lyrica) 75 mg capsule [id number] Take 1 capsule (75 mg) by mouth once daily. Jovon Mckeon MD Active vitamin, iron-folic, () 27 mg iron-800 mcg folic acid tablet [id number] No Take 1 tablet by mouth once daily. Ericka Villela MD Taking Active sertraline (Zoloft) 50 mg tablet [id number] Take 1 tablet (50 mg) by mouth once daily. as directed Ericka Villela MD Active sertraline (Zoloft) 50 mg tablet [id number] Take 1 tablet (50 mg) by mouth [...] Ericka Villela MD documented in this encounter [facility] Work Phone: 10-25-2024 Instructions Ericka Villela MD [...] your healthcare team if you have questions [facility], 2021 documented in this encounter [facility] Work Phone: 09-19-2024 History of Present illness [...] [facility] Professor of Neurology [facility] I personally spent 20 minutes on the day of the visit completing the review of the medical record and outside records, obtaining history and and performing appropriate clinical documentation. documented in this encounter [facility] Work Phone: 09-15-2024 History of Present illness [...] health status 12/23/2017 History of cough Other spooler rubber strand (current) drug therapy 07/15/2021 High risk medication use Other intermediate (current) drug therapy High risk medication use [...] study results (if any) were reviewed by [facility]. No results found for this [...] No follow-ups on file. Electronically signed by [facility] 3:58 PM documented in this encounter [facility] Work Phone: 08-24-2024 Evaluation + Plan note Associated Problem(s): GERD (gastroesophageal reflux disease) Reflux symptoms remain stable on this patient. She denies frequent breakthrough heartburn. [facility] Work Phone: 08-24-2024 Miscellaneous Notes Associated Problem(s): [...] today. Associated Problem(s): Peripheral vascular disease, unspecified ([facility]) Patient remains on statin therapy with atorvastatin 10 mg daily. She has not had any new episodes of vasculitis since her original which was more than 10 years ago. documented in this encounter [facility] Work Phone: 08-24-2024 Evaluation + Plan note Associated Problem(s): Vitamin B12 deficiency Patient has B12 deficiency anemia after gastric bypass surgery. She will receive a B12 shot today. [facility] Work Phone: 08-24-2024 Evaluation + Plan note Associated Problem(s): Hypercholesterolemia Annual labs are due in the spring. She will continue atorvastatin 10 mg daily for now [facility] Work Phone: 08-24-2024 Evaluation + Plan note Associated Problem(s): Hypertension Patient's blood pressure is stable and well-controlled. She did not need any refills today. [facility] Work Phone: 08-24-2024 Evaluation + Plan note Associated Problem(s): Peripheral vascular disease, unspecified ([facility]) Patient remains on statin therapy with atorvastatin 10 mg daily. She has not had any new episodes of vasculitis since her original which was more than 10 years ago. [facility] Work Phone: 08-24-2024 History of Present illness [...] Dose Status atorvastatin (Lipitor) 10 mg tablet [id number] TAKE 1 TABLET BY MOUTH ONCE DAILY Ericka Villela MD Active calcium carbonate 600 mg calcium (1,500 mg) tablet [id number] No Take by mouth. Armen Foote MD Taking Active Discontinued 08/24/24 1113 cholecalciferol (Vitamin D3) 5,000 Units tablet [id number] No Take 1 tablet (5,000 Units) by mouth once daily. Armen Foote MD Taking Active cyanocobalamin (Vitamin B-12) 1,000 mcg/mL injection [id number] No Inject 1 mL (1,000 mcg) into the muscle. Armen Foote MD Taking Active cyanocobalamin (Vitamin B-12) injection 1,000 mcg [id number] Ericka Villela MD Active cyanocobalamin, vitamin B-12, (B-12 COMPLIANCE INJ) [id number] No B12 INJECTIONS Armen Foote MD Taking Active denosumab (Prolia) 60 mg/mL syringe [id number] No Inject 1 mL (60 mg total) under the skin 1 time for 1 dose. To be administered in office Ericka Villela MD Taking 04/12/24 0099 Discontinued 08/24/24 1113 lisinopril 10 mg tablet [id number] Take 1 tablet (10 mg) by mouth once daily. Use as directed Ericka Villela MD Active loratadine (Claritin Reditabs) 10 mg disintegrating tablet [id number] No Take 1 tablet (10 mg) by mouth once daily. Historical Provider, Not Taking Active nystatin (Mycostatin) 100,000 unit/gram powder [id number] No Apply topically 2 times a day. Apply sparingly to affected area(s) Ericka Villela MD Taking Active pantoprazole (ProtoNix) 40 mg EC tablet [id number] TAKE 1 TABLET BY MOUTH ONCE DAILY IN THE MORNING. take before meals Ericka Villela MD Active potassium chloride CR 10 mEq ER tablet [id number] No Take 1 tablet (10 mEq) by mouth once daily. Historical Provider, Taking Active pregabalin (Lyrica) 75 mg capsule [id number] No Take 1 capsule (75 mg) by mouth once daily. Jovon Mckeon MD Taking Active vitamin, iron-folic, () 27 mg iron-800 mcg folic acid tablet [id number] No Take 1 tablet by mouth once daily. Ericka Villela MD Taking Active sertraline (Zoloft) 50 mg tablet [id number] TAKE 1 TABLET BY MOUTH ONCE DAILY [...] Ericka Villela MD documented in this encounter [facility] Work Phone: 08-24-2024 Instructions Ericka Villela MD - 08/24/2024 11:00 AM EST Follow up Dr Villela in December with 45 min wellness exam Get fasting labs before December appointment Get labs today documented in this encounter [facility] Work Phone: 08-08-2024 History of Present illness [...] Other conditions influencing health status (12/23/2017), Other spooler rubber strand (current) drug therapy (07/15/2021), Other spooler rubber strand (current) drug therapy, Other skin changes (11/14/2015), [...] surgical history (05/07/2017); Heel spur surgery (Bilateral); [place] tooth extraction; Tonsillectomy; Adenoidectomy; Total knee arthroplasty [...] provide verbal consent. PROCEDURE: Flexible Laryngoscopy, CPT 68267 POSTPROCEDURE DIAGNOSIS: Hoarseness, MTD, left side vocal [...] Elizabeth and recommended speech therapy with Alesha KEG INSPECTOR. Patient worked with Alesha in past via [...] with speech therapy. documented in this encounter [facility] Work Phone: 05-09-2024 Telephone encounter Note Images from the original note were not included. Provider please sign ov note- unable to submit without [facility] 05-09-2024 Miscellaneous Notes Images from the original [...] Clinicals/Information Sent: N/A documented in this encounter [facility] 05-04-2024 Evaluation + Plan note Associated Problem(s): Vitamin B12 deficiency Patient will receive a B12 shot today since she is unable to absorb it from her gastric bypass surgery. [facility] Work Phone: 05-04-2024 Evaluation + Plan note Associated Problem(s): Senile osteoporosis Patient remains on calcium vitamin D and Prolia injections. DEXA scan was completed in December of this year [facility] Work Phone: 05-04-2024 Miscellaneous Notes Associated Problem(s): [...] the first place documented in this encounter [facility] Work Phone: 05-04-2024 Evaluation + Plan note Associated Problem(s): Diabetes mellitus (Multi) Patient is due for an A1c and was given an order today to complete it. [facility] Work Phone: 05-04-2024 Evaluation + Plan note Associated Problem(s): Hypertension Blood pressure stable and well-controlled. [facility] Work Phone: 05-04-2024 Evaluation + Plan note Associated Problem(s): Hypercholesterolemia Patient has high cholesterol and remains stable on atorvastatin 10 mg daily. [facility] Work Phone: 05-04-2024 Evaluation + Plan note [...] triggered the vasculitis in the first place [facility] Work Phone: 05-04-2024 History of Present illness [...] Dose Status atorvastatin (Lipitor) 10 mg tablet [id number] No Take 1 tablet (10 mg) by mouth once daily. Ericka Villela MD Taking Active calcium carbonate 600 mg calcium (1,500 mg) tablet [id number] No Take by mouth. Armen ProviderMD Taking Active celecoxib (CeleBREX) 200 mg capsule [id number] No Take 1 capsule (200 mg) by mouth once daily. Armen ProviderMD Not Taking Active cholecalciferol (Vitamin D3) 5,000 Units tablet [id number] No Take 1 tablet (5,000 Units) by mouth once daily. Armen ProviderMD Taking Active cyanocobalamin (Vitamin B-12) 1,000 mcg/mL injection [id number] No Inject 1 mL (1,000 mcg) into the muscle. Armen ProviderMD Taking Active cyanocobalamin, vitamin B-12, (B-12 COMPLIANCE INJ) [id number] No B12 INJECTIONS Armen ProviderMD Taking Active denosumab (Prolia) 60 mg/mL syringe [id number] No Inject 1 mL (60 mg total) under the skin 1 time for 1 dose. To be administered in office Ericka Villela MD Taking 04/12/24 9994 dextromethorphan-guaifenesin (Mucinex DM) 30-600 mg 12 hr tablet [id number] No Take 1 tablet by mouth every 12 hours. Do not crush, chew, or split. Historical Provider, Not Taking Active lisinopril 10 mg tablet [id number] No Take 1 tablet (10 mg) by mouth once daily. Use as directed Ericka Villela MD Taking Active loratadine (Claritin Reditabs) 10 mg disintegrating tablet [id number] No Take 1 tablet (10 mg) by mouth once daily. Historical Provider, Not Taking Active nystatin (Mycostatin) 100,000 unit/gram powder [id number] No Apply topically 2 times a day. Apply sparingly to affected area(s) Ericka Villela MD Taking Active pantoprazole (ProtoNix) 40 mg EC tablet [id number] No Take 1 tablet (40 mg) by mouth once daily in the morning. Take before meals. Ericka Villela MD Taking Active potassium chloride CR 10 mEq ER tablet [id number] No Take 1 tablet (10 mEq) by mouth once daily. Historical Provider, Taking Active pregabalin (Lyrica) 75 mg capsule [id number] No Take 1 capsule (75 mg) by mouth once daily. Jovon Mckeon MD Taking Active vitamin, iron-folic, () 27 mg iron-800 mcg folic acid tablet [id number] No Take 1 tablet by mouth once daily. Ericka Villela MD Taking Active sertraline (Zoloft) 50 mg tablet [id number] No Take 1 tablet (50 mg) by [...] Ericka Villela MD documented in this encounter [facility] Work Phone: 05-04-2024 Instructions Ericka Villela MD - 05/04/2024 2:00 PM EDT Get A1c now Follow up Dr Villela in 4 months for HTN etc 30 min appointment documented in this encounter [facility] Work Phone: 05-03-2024 Telephone encounter Note Images from the original note were not included. === PHARMACY TEAM ==== ADDITIONAL INFORMATION NEEDED/REQUESTED Case Submitted: No Request Type: Provider Date of Service: tbs Additional Information Needed: please sign ov note Request from Payor by: N/A Email Sent to: phone encounter to GUILLAUME Jameson Requested Clinicals/Information Sent: N/A [facility] 04-29-2024 Note IMPRESSION: Osteoart hrosis, showing mild interval progression Fancy Packer: TATY Transcribe Date/Time: Apr 29 2024 11:19A Dictated by : MYRIAM CASTILLO MD This examination was interpreted and the report reviewed and electronically signed by: MYRIAM CASTILLO MD on Apr 29 2024 11:20AM EST [facility] 04-28-2024 Note HNO ID: [id number] Author: GUILLAUME MERRILL MD Service: ? Author Type: Physician Type: Progress Notes Filed: 05/25/2024 14:02 Note Text: [id number] Ms. House was last seen for left [...] Impression: IMPRESSION: Osteoarthrosis, showing mild interval progression Fancy Packer: [facility] Transcribe Date/Time: Apr 29 2024 11:19A [...] knee joints Informed Consent Consent Obtained: Verbal [place] Protocol A moment to CARE was completed. [...] arthroplasty component. 2 (more content not included)... [facility] 04-28-2024 History of Present illness Narrative Associated Order(s): Large Joint Arthro/Inj: bilateral knee joints Post-Procedure Diagnose(s): Chondromalacia of right patella; Primary osteoarthritis of both knees Images from the original note were not included. [id number] Ms. House was last seen for left [...] Impression: IMPRESSION: Osteoarthrosis, showing mild interval progression Fancy Packer: [facility] Transcribe Date/Time: Apr 29 2024 11:19A [...] knee joints Informed Consent Consent Obtained: Verbal [place] Protocol A moment to CARE was completed. [...] repeat clinical evaluation documented in this encounter [facility] 04-28-2024 History of Present illness Narrative Radiology [...] PATIENT PRESENTS WITH AN IMPLANTABLE OR ATTACHED PRAWN TRAWLER HAND: No RADIOLOGY DEPARTMENT: General X-ray: Exam(s) Completed: Lower Extremity X-Ray(s): Knee, AP / Lat / Tunne / Merchant Left and Wt. 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 Bearing PERIPHERAL IV DATA: Not applicable SIGNED BY: Tari Sánchez April 28, 2024 3:19 PM [facility] 04-12-2024 History of Present illness Narrative [...] normal Romberg test is negative. Impression: Ms. PORSHA HOUSE has remote history [...] [facility] Professor of Neurology [facility] I personally spent 30 minutes on the day of the visit completing the review of the medical record and outside records, obtaining history and performing an appropriate physical exam, patient care, counseling and education, placing orders, independently reviewing results, communicating with the patient and other providers, coordinating care and performing appropriate clinical documentation. documented in this encounter [facility] Work Phone: 01-24-2024 History of Present illness [...] consent. PROCEDURE: Flexible laryngoscopy with stroboscopy, CPT 71215 POSTPROCEDURE DIAGNOSIS: hoarseness INDICATIONS: Inability to tolerate [...] Hannah Elizabeth MD. documented in this encounter [facility] Work Phone: 12-30-2023 Evaluation + Plan note Associated Problem(s): Screening for alcohol problem Alcohol screen was negative [facility] Work Phone: 12-30-2023 Evaluation + Plan note Associated Problem(s): Screening for multiple conditions Patient is active depression which she admits is a little worse right now but does not want to change her medication dose of sertraline Alcohol screen was negative [facility] Work Phone: 12-30-2023 Miscellaneous Notes Associated Problem(s): [...] is encouraged to get out power of united states attorney and living well. Patient would like to [...] was drawn yesterday Associated Problem(s): Diabetes mellitus (CMS/FORMER[facility]) Current A1c is 5.5% showing excellent control. [...] still does not have a power of united states attorney or living will. She was given information about how to complete these documents and if and when she does to bring us a copy. documented in this encounter [facility] Work Phone: 12-30-2023 Evaluation + Plan note Associated Problem(s): Medicare annual wellness visit, subsequent Annual wellness visit completed. Safety issues reviewed with the patient. Advance care planning also discussed and she is encouraged to get out power of united states attorney and living well. Patient would like to be a full code [facility] Work Phone: 12-30-2023 Evaluation + Plan note Associated Problem(s): GERD (gastroesophageal reflux disease) Reflux remains stable and no worsening or increase in symptoms recently [facility] Work Phone: 12-30-2023 Evaluation + Plan note Associated Problem(s): Vitamin B12 deficiency Since the gastric bypass surgery patient has required B12 injections. She was given 1 today [facility] Work Phone: 12-30-2023 Evaluation + Plan note Associated Problem(s): Senile osteoporosis Patient is due for her Prolia injection not till after January 20. We will set up a nurse visit for that and get it completed before January 29 so she can use her current lab work which was drawn yesterday [facility] Work Phone: 12-30-2023 Evaluation + Plan note Associated Problem(s): Diabetes mellitus (CMS/HCC) Current A1c is 5.5% showing excellent control. Patient dropped off her urine today but urine microalbumin is pending Patient was reminded to get annual diabetic eye exams [facility] Work Phone: 12-30-2023 Evaluation + Plan note Associated Problem(s): Hypertension Blood pressure stable and well-controlled no changes necessary. This is an ongoing chronic problem [facility] Work Phone: 12-30-2023 Evaluation + Plan note Associated Problem(s): Hypercholesterolemia Patient is on atorvastatin 10 mg daily and complete blood work was finished yesterday. Liver enzymes remain normal and cholesterol LDL is mildly elevated but overall satisfactory. Patient does not want to go on higher dose of atorvastatin for fear of muscle aches [facility] Work Phone: 12-30-2023 Evaluation + Plan note Associated Problem(s): Full code status CODE STATUS was discussed with the patient today and they wish to be a full code. Patient understands that this may include CPR, cardioversion, intubation and ventilation if necessary. Patient still does not have a power of united states attorney or living will. She was given information about how to complete these documents and if and when she does to bring us a copy. [facility] Work Phone: 12-30-2023 History of Present illness [...] She was given 1 today Diabetes mellitus ([facility]/FORM[facility]) Current Assessment & Plan Current A1c is [...] is encouraged to get out power of united states attorney and living well. Patient would like to be a full code ACP (advance care planning) Overview Living will power of united states attorney and CODE STATUS were all discussed with the patient today. She does have a living will and DURABLE POWER OF CAMP[facility] [place] and needs to bring us an updated [...] still does not have a power of united states attorney or living will. She was given information [...] 1,000 mcg (Completed) documented in this encounter [facility] Work Phone: 12-30-2023 Instructions Ericka Villela MD - 12/30/2023 2:45 PM EDT Advanced directives were discussed at your appointment today. It is recommended that you obtain and complete a living will and D POA (DURABLE POWER OF CAMPUS [place]APLAIN for healthcare). You can complete these documents with an united states attorney if you have 1 or go to the website: [email or web address]. Please search the word living will and [...] and RSV vaccine documented in this encounter [facility] Work Phone: 12-20-2023 Miscellaneous Notes Images from the original note were not included. OPERATIVE NOTE Date: 12/20/2023 OR Location: [facility] OR Name: Porsha House : 1960, Age: 63 y.o., , Sex: female Surgeons Hannah Elizabeth MD Resident/Fellow/Other Net Finisher: Paola Sullivan MD Anesthesia: General ASA: II Anesthesia Staff: Anesthesiologist: Lencho Bahena MD C-AA: FRANSISCO Lee Staff: Opal Polisher: Jaimee Bro RN Scrub Person: Shravan Marx RN Preoperative Diagnosis: Hoarseness 2. Vocal Cord Paresis/Paralysis- Left. Postoperative Diagnosis: Hoarseness Vocal Cord Paresis/ParalysisParesis Left. Procedure Performed: 1. Right thigh fat graft harvest, CPT 71615 2. Microdirect laryngoscopy with injection, CPT 57215- Left Indications: Porsha House is a 63 [...] received anesthesia and was intubated with 5-0 RIVER RAFTING GUIDE tube. The bed was turned 90 to [...] thigh fat graft harvest on 12/20/2023 at [facility]. ACTIVE PROBLEMS Patient Active Problem List Diagnosis [...] health status 12/23/2017 History of cough Other spooler rubber strand (current) drug therapy 07/15/2021 High risk medication use Other intermediate (current) drug therapy High risk medication use [...] review of patient's medical records. Speech recognition refrigeration supervisor software was used in the creation of this note. Despite proofreading, several typographical errors might be present that might affect the meaning of the content. Pre-Op Instructions & Checklist Your surgery has been scheduled at [facility] at [address] in [place], [place], [facility], [address], in the [facility]. Parking is to the left of the [...] call by 3:00 pm you may call [phone] between the hours of 3:00 and 4:00 [...] *If you need help with quitting, call 4-039-HBQL-NOW. Alcohol: *No alcoholic beverages for 48 hours before surgery. AFTER OUTPATIENT SURGERY: *A responsible adult MUST accompany you at the time of discharge and stay with you for 24 hours after your surgery. *You may NOT drive yourself home after surgery. *You may use a taxi or ride sharing service ([employer], [facility]) to return home ONLY if you are [...] regarding these preoperative instructions you may call [phone]. If you have questions regarding you surgical procedure, or post-operative care/recovery please call your surgeon's office. documented in this encounter [facility] Work Phone: 12-20-2023 Note Formatting of this n ote might be different from the original. Images from the original note were not included. OPERATIVE NOTE Date: 12/20/2023 OR Location: [facility] OR Name: Porsha House : 1960, Age: 63 y.o., , Sex: female Surgeons Hannah Elizabeth MD Resident/Fellow/Other Net Finisher: Paola Sullivan MD Anesthesia: General ASA: II Anesthesia Staff: Anesthesiologist: Lencho Bahena MD C-AA: FRANSISCO Lee Staff: Opal Polisher: Jaimee Bro RN Scrub Person: Shravan Marx RN Preoperative Diagnosis: Hoarseness 2. Vocal Cord Paresis/Paralysis- Left. Postoperative Diagnosis: Hoarseness Vocal Cord Paresis/ParalysisParesis Left. Procedure Performed: 1. Right thigh fat graft harvest, CPT 10497 2. Microdirect laryngoscopy with injection, CPT 97026- Left Indications: Porsha House is a 63 [...] received anesthesia and was intubated with 5-0 RIVER RAFTING GUIDE tube. The bed was turned 90 to [...] Stable Disposition: PACU Hannah Elizabeth MD FACS [facility] Work Phone: 12-20-2023 Attending History and physical [...] thigh fat graft harvest on 12/20/2023 at [facility]. ACTIVE PROBLEMS Patient Active Problem List Diagnosis Acute conjunctivitis of right eye S/P gastric surgery Status post gastric bypass for obesity Elevated alkaline phosphatase level Diarrhea Cervical radiculopathy Arthritis of wrist, right Osteoarthritis of knee Malabsorption Colon polyps GERD (gastroesophageal reflux disease) Spider veins Hypertension Mononeuritis multiplex Depression, major, single episode, severe (CMS/HCC) Hypokalemia Hypercholesterolemia Vitamin D deficiency Vitamin B12 deficiency Diabetes mellitus ([facility]) B12 deficiency anemia Other fatigue Medicare annual [...] Morbid (severe) obesity due to excess calories ([facility]) Morbid obesity Muscle spasm of back 08/15/2019 Back muscle spasm Myalgia, other site 03/08/2019 Gluteal pain Other bursitis of hip, left hip 04/30/2021 Hip bursitis, left Other conditions influencing health status Osteoarthritis Other conditions influencing health status 12/23/2017 History of cough Other spooler rubber strand (current) drug therapy 07/15/2021 High risk medication use Other spooler rubber strand (current) drug therapy High risk medication use [...] review of patient's medical records. Speech recognition refrigeration supervisor software was used in the creation of this note. Despite proofreading, several typographical errors might be present that might affect the meaning of the content. [facility] Work Phone: 12-20-2023 History and physical note [...] thigh fat graft harvest on 12/20/2023 at [facility]. ACTIVE PROBLEMS Patient Active Problem List Diagnosis [...] health status 12/23/2017 History of cough Other spooler rubber strand (current) drug therapy 07/15/2021 High risk medication use Other intermediate (current) drug therapy High risk medication use [...] Surgery For Morbid Obesity Bypass With Maria Inse-en-Y HEEL SPUR SURGERY Bilateral OTHER SURGICAL HISTORY [...] review of patient's medical records. Speech recognition refrigeration supervisor software was used in the creation of this note. Despite proofreading, several typographical errors might be present that might affect the meaning of the content. documented in this encounter [facility] Work Phone: 12-19-2023 Hospital Discharge instructions Paola [...] further questions, please call my office at [phone], press [phone] and ask for my alumnae secretary or nurse. If after hours, please call the [phone] and ask for the ENT resident air conditioning coil assembler. documented in this encounter [facility] Work Phone: 12-01-2023 Note Formatting of this [...] thigh fat graft harvest on 12/20/2023 at [facility]. ACTIVE PROBLEMS Patient Active Problem List Diagnosis Acute conjunctivitis of right eye S/P gastric surgery Status post gastric bypass for obesity Elevated alkaline phosphatase level Diarrhea Cervical radiculopathy Arthritis of wrist, right Osteoarthritis of knee Malabsorption Colon polyps GERD (gastroesophageal reflux disease) Spider veins Hypertension Mononeuritis multiplex Depression, major, single episode, severe (CMS/HCC) Hypokalemia Hypercholesterolemia Vitamin D deficiency Vitamin B12 deficiency Diabetes mellitus (CMS/[facility]) B12 deficiency anemia Other fatigue Medicare annual [...] Morbid (severe) obesity due to excess calories (CMS/[facility]) Morbid obesity Muscle spasm of back 08/15/2019 Back muscle spasm Myalgia, other site 03/08/2019 Gluteal pain Other bursitis of hip, left hip 04/30/2021 Hip bursitis, left Other conditions influencing health status Osteoarthritis Other conditions influencing health status 12/23/2017 History of cough Other spooler rubber strand (current) drug therapy 07/15/2021 High risk medication use Other spooler rubber strand (current) drug therapy High risk medication use [...] review of patient's medical records. Speech recognition refrigeration supervisor software was used in the creation of this note. Despite proofreading, several typographical errors might be present that might affect the meaning of the content. [facility] Work Phone: 12-01-2023 Note Formatting of this n ote might be different from the original. Pre-Op Instructions & Checklist Your surgery has been scheduled at [facility] at [address], in [place], [place], [facility], [address], in the [facility]. Parking is to the left of the [...] call by 3:00 pm you may call [phone] between the hours of 3:00 and 4:00 [...] *If you need help with quitting, call 9-091-HOTM-NOW. Alcohol: *No alcoholic beverages for 48 hours before surgery. AFTER OUTPATIENT SURGERY: *A responsible adult MUST accompany you at the time of discharge and stay with you for 24 hours after your surgery. *You may NOT drive yourself home after surgery. *You may use a taxi or ride sharing service ([employer], [facility]) to return home ONLY if you are [...] regarding these preoperative instructions you may call [phone]. If you have questions regarding you surgical procedure, or post-operative care/recovery please call your surgeon's office. 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 She is looking for another part-time job [facility] Work Phone: 10-28-2023 Miscellaneous Notes Associated Problem(s): [...] monthly B12 shots. documented in this encounter [facility] Work Phone: 10-28-2023 Evaluation + Plan note Associated Problem(s): Diabetes mellitus (CMS/HCC) Patient is due for A1c and urine microalbumin and was given a requisition to complete these before her December appointment. [facility] Work Phone: 10-28-2023 Evaluation + Plan note Associated Problem(s): Cyanocobalamin deficiency (Deleted) Patient is a chronic B12 deficiency because she cannot absorb it from her gastric bypass surgery. She has missed 1 or 2 but we will get her back on scheduled monthly B12 shots. [facility] Work Phone: 10-28-2023 Evaluation + Plan note Associated Problem(s): Hypertension Patient has a mild elevation in diastolic blood pressure but she is coming back in December so we will check it again then. [facility] Work Phone: 10-28-2023 Evaluation + Plan note Associated Problem(s): Hypercholesterolemia Annual blood work is due in December and she was given a requisition to complete this before her wellness visit. [facility] Work Phone: 10-28-2023 Evaluation + Plan note Associated Problem(s): Vitamin B12 deficiency >>ASSESSMENT AND PLAN FOR CYANOCOBALAMIN DEFICIENCY WRITTEN ON 10/28/2023 12:50 PM BY ERICKA VILLELA MD Patient is a chronic B12 deficiency because she cannot absorb it from her gastric bypass surgery. She has missed 1 or 2 but we will get her back on scheduled monthly B12 shots. [facility] Work Phone: 10-28-2023 History of Present illness [...] Dose Status atorvastatin (Lipitor) 10 mg tablet [id number] Take 1 tablet (10 mg) by mouth once daily. Ericka Villela MD Active calcium carbonate 600 mg calcium (1,500 mg) tablet [id number] No Take by mouth. Armen Foote MD 09/21/2023 Active celecoxib (CeleBREX) 200 mg capsule [id number] No Take 1 capsule (200 mg) by mouth once daily. Armen Foote MD More than a month Active cholecalciferol (Vitamin D3) 5,000 Units tablet [id number] No Take 1 tablet (5,000 Units) by mouth once daily. Armen Foote MD 09/21/2023 Active cyanocobalamin (Vitamin B-12) 1,000 mcg/mL injection [id number] No Inject 1 mL (1,000 mcg) into the muscle. Armen Foote MD Past Month Active cyanocobalamin, vitamin B-12, (B-12 COMPLIANCE INJ) [id number] No B12 INJECTIONS Armen Foote MD Past Month Active denosumab (Prolia) 60 mg/mL syringe [id number] No Inject 1 mL (60 mg) under the skin every 6 months. To be administered in office Armen Foote MD Taking Active dextromethorphan-guaifenesin (Mucinex DM) 30-600 mg 12 hr tablet [id number] No Take 1 tablet by mouth every 12 hours. Do not crush, chew, or split. Armen Foote MD Past Week Active lisinopril 10 mg tablet [id number] Take 1 tablet (10 mg) by mouth once daily. Use as directed Ericka Villela MD Active loratadine (Claritin Reditabs) 10 mg disintegrating tablet [id number] No Take 1 tablet (10 mg) by mouth once daily. Armen Foote MD Past Week Active nystatin (Mycostatin) 100,000 unit/gram powder [id number] No Apply topically 2 times a day. Apply sparingly to affected area(s) Ericka Villela MD Past Week Active pantoprazole (ProtoNix) 40 mg EC tablet [id number] Take 1 tablet (40 mg) by mouth once daily in the morning. Take before meals. Ericka Villela MD Active potassium chloride CR 10 mEq ER tablet [id number] No Take 1 tablet (10 mEq) by mouth once daily. Historical Provider, 09/21/2023 Active pregabalin (Lyrica) 75 mg capsule [id number] No Take 1 capsule (75 mg) by mouth once daily. Historical Provider, 09/21/2023 Active vitamin, iron-folic, () 27 mg iron-800 mcg folic acid tablet [id number] Take 1 tablet by mouth once daily. Ericka Villela MD Active sertraline (Zoloft) 50 mg tablet [id number] Take 1 tablet (50 mg) by mouth [...] Ericka Villela MD documented in this encounter [facility] Work Phone: 10-28-2023 Instructions Ericka Villela MD - 10/28/2023 10:30 AM EST Get fasting annual labs in December Follow up Dr Villela in in December with 45 min wellness exam Set up monthly [place] for B12 shots documented in this encounter [facility] Work Phone: 09-22-2023 History and physical note Outpatient Hospital Procedure Patient Profile-Procedures Initial Info Patient Demographics Name Porsha House Date of 1960 Address [address] [place] [phone] [facility] [phone] Primary Secondary Phone Number [facility] Ericka Villela Procedures EGD Indication: Abnormal [...] health status 12/23/2017 History of cough Other spooler rubber strand (current) drug therapy 07/15/2021 High risk medication use Other spooler rubber strand (current) drug therapy High risk medication use [...] muscle, left, initial encounter Samuel's syndrome, unspecified Smauel syndrome Unspecified injury of thorax, initial encounter [...] met Iza Ko MD 09/22/2023 11:19 AM [facility] Work Phone: 09-22-2023 History and physical note Outpatient Hospital Procedure Patient Profile-Procedures Initial Info Patient Demographics Name Porsha House Date of 1960 Address [address] [place] [phone] [facility] [phone] Primary Secondary Phone Number PCP Ericka Villela [...] health status 12/23/2017 History of cough Other intermediate (current) drug therapy 07/15/2021 High risk medication use Other intermediate (current) drug therapy High risk medication use [...] 09/22/2023 11:19 AM documented in this encounter [facility] Work Phone: 09-22-2023 Hospital Discharge instructions Iza [...] of having your procedure, call the [facility] to be advised whether a visit to [...] discharge from the GI Lab, please call: [phone] from 7 am- 4:30 pm. In the event of an emergency please go to the closest Emergency Department or call Dr. Ko at [phone] documented in this encounter [facility] Work Phone: 09-06-2023 History of Present illness Narrative Chief Complaint Chief Complaint Patient presents with minor surgery in office Restylane injection. 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 Interval History (08/31/2023) She is here for a vocal cord injection Procedure: Direct endoscopic vocal cord injection (CPT 90930), unilateral Diagnosis: Left vocal cord paresis Injection [...] questions were answered. documented in this encounter [facility] Work Phone: 09-06-2023 Instructions Hannah Elizabeth MD [...] and clearing. You will see Alesha Hernandez KEG INSPECTOR in 2 weeks, and me in 2 months. You may advance your diet as tolerated after one hour. For discomfort, please use over the counter Acetaminophen (Tylenol) or Ibuprofen (Advil. Motrin) for pain as directed by the packaging. Please call the office to talk with my nurse for any issues such as fever, chills, or questions at [phone], or my administrative appeals tribunal member at [phone], press 2. If after hours or on the weekends, please call [phone], and ask for the ENT resident air conditioning coil assembler, for assistance. 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 Additionally, she has coughing fits that trigger [...] surgical history (05/07/2017); Heel spur surgery (Bilateral); [place] tooth extraction; Tonsillectomy; Adenoidectomy; and Total knee [...] consent. PROCEDURE: Flexible laryngoscopy with stroboscopy, CPT 54947 POSTPROCEDURE DIAGNOSIS: Chronic hoarseness INDICATIONS: Inability to [...] Hannah Elizabeth MD. documented in this encounter [facility] Work Phone: 08-19-2023 Evaluation + Plan note [...] ENT appointment Keep October appointment with me. [facility] Work Phone: 08-19-2023 Miscellaneous Notes Associated Problem(s): [...] appointment with me. documented in this encounter [facility] Work Phone: 08-19-2023 History of Present illness [...] Dose Status atorvastatin (Lipitor) 10 mg tablet [id number] TAKE 1 TABLET DAILY Ericka Villela MD Active calcium carbonate 600 mg calcium (1,500 mg) tablet [id number] Take by mouth. Historical ProviderMD Active celecoxib (CeleBREX) 200 mg capsule [id number] Take 1 capsule (200 mg) by mouth 1 (one) time each day. Historical ProviderMD Active cholecalciferol (Vitamin D3) 5,000 Units tablet [id number] Take 1 tablet (5,000 Units) by mouth 1 (one) time each day. Historical ProviderMD Active cyanocobalamin (Vitamin B-12) 1,000 mcg/mL injection [id number] Inject 1 mL (1,000 mcg) into the shoulder, thigh, or buttocks. Historical ProviderMD Active cycloSPORINE (Restasis) 0.05 % ophthalmic emulsion [id number] INSTILL 1 DROP IN BOTH EYES EVERY 12 HOURS Armen Foote MD Active denosumab (Prolia) 60 mg/mL syringe [id number] Inject 1 mL (60 mg) under the skin every 6 (six) months. To be administered in office Armen Foote MD Active lidocaine (Lidoderm) 5 % patch [id number] Place on the skin. Apply 1 patch to the affected area and leave in place for 12 hours, then remove and leave off for 12 hours Armen Foote MD Active lisinopril 10 mg tablet [id number] Take 1 tablet (10 mg) by mouth 1 (one) time each day. Use as directed Armen Foote MD Active nystatin (Mycostatin) 100,000 unit/gram powder [id number] Apply topically 2 times a day. Apply sparingly to affected area(s) Ericka Villela MD Active pantoprazole (ProtoNix) 40 mg EC tablet [id number] Take 1 tablet (40 mg) by mouth once daily in the morning. Take before meals. Helena Live DO Active potassium chloride CR 10 mEq ER tablet [id number] Take 1 tablet (10 mEq) by mouth 1 (one) time each day. Armen Foote MD Active pregabalin (Lyrica) 75 mg capsule [id number] Take 1 capsule (75 mg) by mouth 1 (one) time each day. Historical ProviderMD Active 28 mg iron- 800 mcg tablet [id number] TAKE 1 TABLET BY MOUTH ONCE DAILY Ericka Villela MD Active sertraline (Zoloft) 50 mg tablet [id number] Take 1 tablet (50 mg) by mouth [...] Ericka Villela MD documented in this encounter [facility] Work Phone: 08-19-2023 Instructions Ericka Villela MD - 08/19/2023 10:30 AM EDT Please get Sed rate and EDWARD today Keep appointment with ENT on 08/31/23 Keep Oct appointment with Dr Campoverde documented in this encounter [facility] Work Phone: 07-28-2023 History of Present illness Narrative Speech-Language Pathology KEG INSPECTOR Outpatient MBS Evaluation Patient Name: Prosha House Today's Date: 07/28/2023 Time Calculation Start [...] Mononeuritis multiplex Depression, major, single episode, severe ([facility]) Hypokalemia Hypercholesterolemia Vitamin D deficiency Vitamin B12 deficiency Diabetes mellitus ([facility]) B12 deficiency anemia Other fatigue Medicare annual wellness visit, subsequent ACP (advance care planning) Full code status Screening for multiple conditions Screening for alcohol problem Senile osteoporosis Samuel's syndrome Suspected sleep apnea Sleep apnea, unspecified Secondary non-renal hyperparathyroidism ([facility]) Osteoarthritis of both hands S/P knee replacement [...] who verbalized understanding. documented in this encounter [facility] Work Phone: 07-22-2023 Evaluation + Plan note Associated Problem(s): Vitamin B12 deficiency B12 shot given 07/22/23 [facility] Work Phone: 07-22-2023 Miscellaneous Notes Associated Problem(s): Vitamin B12 deficiency B12 shot given 07/22/23 Associated Problem(s): Other dysphagia Urgent referral to ENT, for evaluation of vocal cords and possible scope. Get barium swallow study. Get labs drawn to eval for other atypical etiologies such as vasculitis. We will check an EDWARD and sed rate. documented in this encounter [facility] Work Phone: 07-22-2023 Evaluation + Plan note Associated Problem(s): Other dysphagia Urgent referral to ENT, for evaluation of vocal cords and possible scope. Get barium swallow study. Get labs drawn to eval for other atypical etiologies such as vasculitis. We will check an EDWARD and sed rate. 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 [...] Dose Status atorvastatin (Lipitor) 10 mg tablet [id number] TAKE 1 TABLET DAILY Ericka Villela MD Active calcium carbonate 600 mg calcium (1,500 mg) tablet [id number] Take by mouth. Armen ProviderMD Active celecoxib (CeleBREX) 200 mg capsule [id number] Take 1 capsule (200 mg) by mouth 1 (one) time each day. Armen Foote MD Active cholecalciferol (Vitamin D3) 5,000 Units tablet [id number] Take 1 tablet (5,000 Units) by mouth 1 (one) time each day. Armen Foote MD Active Discontinued 07/22/23 165 cyanocobalamin (Vitamin B-12) 1,000 mcg/mL injection [id number] Inject 1 mL (1,000 mcg) into the shoulder, thigh, or buttocks. Amren Foote MD Active cycloSPORINE (Restasis) 0.05 % ophthalmic emulsion [id number] INSTILL 1 DROP IN BOTH EYES EVERY 12 HOURS Armen Foote MD Active denosumab (Prolia) 60 mg/mL syringe [id number] Inject 1 mL (60 mg) under the skin every 6 (six) months. To be administered in office Armen Foote MD Active lidocaine (Lidoderm) 5 % patch [id number] Place on the skin. Apply 1 patch to the affected area and leave in place for 12 hours, then remove and leave off for 12 hours Armen Foote MD Active lisinopril 10 mg tablet [id number] Take 1 tablet (10 mg) by mouth 1 (one) time each day. Use as directed Armen Foote MD Active nystatin (Mycostatin) 100,000 unit/gram powder [id number] Apply topically 2 times a day. Apply sparingly to affected area(s) Ericka Villela MD Active pantoprazole (ProtoNix) 40 mg EC tablet [id number] Take 1 tablet (40 mg) by mouth once daily in the morning. Take before meals. Ericka Villela MD Active potassium chloride CR 10 mEq ER tablet [id number] Take 1 tablet (10 mEq) by mouth 1 (one) time each day. Armen Foote MD Active pregabalin (Lyrica) 75 mg capsule [id number] Take 1 capsule (75 mg) by mouth 1 (one) time each day. Armen Foote MD Active 28 mg iron- 800 mcg tablet [id number] TAKE 1 TABLET BY MOUTH ONCE DAILY Ericka Villela MD Active Discontinued 10/05/23 1650 sertraline (Zoloft) 50 mg tablet [id number] Take 1 tablet (50 mg) by mouth [...] plan and orders. documented in this encounter [facility] Work Phone: 07-22-2023 Sharon Justice - 07/22/2023 3:00 PM EDT Please see ENT FLORENCIA for vocal cord dysfunction. Set up swallow study FLORENCIA Follow up with Dr. Villela in 1 month for 30 min appt Get blood work today documented in this encounter [facility] Work Phone: 06-02-2023 Evaluation + Plan note [...] make an ENT referral for her laryngitis. [facility] Work Phone: 06-02-2023 Miscellaneous Notes Associated Problem(s): [...] for her laryngitis. documented in this encounter [facility] Work Phone: 06-02-2023 History of Present illness [...] Dose Status atorvastatin (Lipitor) 10 mg tablet [id number] Take 1 tablet (10 mg) by mouth 1 (one) time each day. Historical ProviderMD Active calcium carbonate 600 mg calcium (1,500 mg) tablet [id number] Take by mouth. Historical ProviderMD Active celecoxib (CeleBREX) 200 mg capsule [id number] Take 1 capsule (200 mg) by mouth 1 (one) time each day. Historical ProviderMD Active cholecalciferol (Vitamin D3) 5,000 Units tablet [id number] Take 1 tablet (5,000 Units) by mouth 1 (one) time each day. Historical ProviderMD Active ciprofloxacin (Cipro) 500 mg tablet [id number] Take 1 tablet (500 mg) by mouth 2 times a day. Historical ProviderMD Active cyanocobalamin (Vitamin B-12) 1,000 mcg/mL injection [id number] Inject 1 mL (1,000 mcg) into the shoulder, thigh, or buttocks. Armen ProviderMD Active cycloSPORINE (Restasis) 0.05 % ophthalmic emulsion [id number] INSTILL 1 DROP IN BOTH EYES EVERY 12 HOURS Armen Foote MD Active denosumab (Prolia) 60 mg/mL syringe [id number] Inject 1 mL (60 mg) under the skin every 6 (six) months. To be administered in office Armen Foote MD Active lidocaine (Lidoderm) 5 % patch [id number] Place on the skin. Apply 1 patch to the affected area and leave in place for 12 hours, then remove and leave off for 12 hours Armen Foote MD Active lisinopril 10 mg tablet [id number] Take 1 tablet (10 mg) by mouth 1 (one) time each day. Use as directed Historical MD Dary Active nystatin (Mycostatin) 100,000 unit/gram powder [id number] Apply topically 2 times a day. Apply sparingly to affected area(s) Ericka Villela MD Active pantoprazole (ProtoNix) 40 mg EC tablet [id number] Take 1 tablet (40 mg) by mouth once daily in the morning. Take before meals. Ericka Villela MD Active potassium chloride CR 10 mEq ER tablet [id number] Take 1 tablet (10 mEq) by mouth 1 (one) time each day. Armen Foote MD Active predniSONE (Deltasone) 10 mg tablet [id number] Take 1 tablet (10 mg) by mouth once daily. Historical ProviderMD 05/28/23 9201 pregabalin (Lyrica) 75 mg capsule [id number] Take 1 capsule (75 mg) by mouth 1 (one) time each day. Armen ProviderMD Active vit,uzja81-ubgq-dqffc (PNV 29-1) 29 mg iron- 1 mg tablet [id number] Take 1 tablet by mouth once daily. Ericka Villela MD Active sertraline (Zoloft) 50 mg tablet [id number] Take 1 tablet (50 mg) by mouth [...] pleasure seeing you. documented in this encounter [facility] Work Phone: 02-24-2023 Evaluation + Plan note Associated Problem(s): Achilles tendinitis of right lower extremity I recommend patient continue using Biofreeze as needed on the right Achilles tendon and foot. I would recommend a walking boot for at least the next 6 weeks. If she has worsening symptoms she is to let me know and we will make a referral to [facility] sooner. X-ray was obtained and shows some arthritic changes but nothing else significant. If we do not see any improvement we will refer her to podiatry [facility] Work Phone: 02-24-2023 Miscellaneous Notes Associated Problem(s): Achilles tendinitis of right lower extremity I recommend patient continue using Biofreeze as needed on the right Achilles tendon and foot. I would recommend a walking boot for at least the next 6 weeks. If she has worsening symptoms she is to let me know and we will make a referral to pegger dob[facility] looms sooner. X-ray was obtained and shows some arthritic changes but nothing else significant. If we do not see any improvement we will refer her to podiatry documented in this encounter [facility] Work Phone: 02-24-2023 History of Present illness [...] Review Audit Reviewed by Rachel Raymond MA (Bottle Inspector) on 02/23/23 at 1913 Medication Order Taking? Sig Documenting Provider Last Dose Status atorvastatin (Lipitor) 10 mg tablet [id number] Take 1 tablet (10 mg) by mouth 1 (one) time each day. Armen Foote MD Active calcium carbonate 600 mg calcium (1,500 mg) tablet [id number] Take by mouth. Armen Foote MD Active celecoxib (CeleBREX) 200 mg capsule [id number] Take 1 capsule (200 mg) by mouth 1 (one) time each day. Armen Foote MD Active cholecalciferol (Vitamin D3) 5,000 Units tablet [id number] Take 1 tablet (5,000 Units) by mouth 1 (one) time each day. Armen Foote MD Active cyanocobalamin (Vitamin B-12) 1,000 mcg/mL injection [id number] Inject 1 mL (1,000 mcg) into the shoulder, thigh, or buttocks. Armen Foote MD Active denosumab (Prolia) 60 mg/mL syringe [id number] Inject 1 mL (60 mg) under the skin every 6 (six) months. To be administered in office Armen Foote MD Active lidocaine (Lidoderm) 5 % patch [id number] Place on the skin. Apply 1 patch to the affected area and leave in place for 12 hours, then remove and leave off for 12 hours Armen Foote MD Active lisinopril 10 mg tablet [id number] Take 1 tablet (10 mg) by mouth 1 (one) time each day. Use as directed Armen Foote MD Active nystatin (Mycostatin) 100,000 unit/gram powder [id number] Apply topically 2 times a day. Apply sparingly to affected area(s) Ericka Villela MD Active pantoprazole (ProtoNix) 40 mg EC tablet [id number] Take 1 tablet (40 mg) by mouth once daily in the morning. Take before meals. Ericka Villela MD Active PNV no.95/ferrous fum/folic ac ( ORAL) [id number] Take 1 tablet by mouth 1 (one) time each day. Historical ProviderMD Active potassium chloride CR 10 mEq ER tablet [id number] Take 1 tablet (10 mEq) by mouth 1 (one) time each day. Historical Provider, Active pregabalin (Lyrica) 75 mg capsule [id number] Take 1 capsule (75 mg) by mouth 1 (one) time each day. Historical Provider, Active vit,ybmk49-zytd-ibbud (PNV 29-1) 29 mg iron- 1 mg tablet [id number] Take 1 tablet by mouth 1 (one) time each day. Historical Provider, Active sertraline (Zoloft) 50 mg tablet [id number] Take 1 tablet (50 mg) by mouth [...] pleasure seeing you. documented in this encounter [facility] Work Phone: 02-24-2023 Instructions Ericka Villela MD - 02/24/2023 11:45 AM EDT pLEASE WEAR BOOT FOR NEXT 6 WEEKS documented in this encounter [facility] Work Phone: 12-24-2022 Evaluation + Plan note Associated Problem(s): Depression, major, single episode, severe (CMS/HCC) Pression is stable. [facility] Work Phone: 12-24-2022 Miscellaneous Notes Associated Problem(s): [...] at her baseline. documented in this encounter [facility] Work Phone: 12-24-2022 Evaluation + Plan note Associated Problem(s): Diabetes mellitus (CMS/HCC) Patient's A1c has remained stable since her gastric bypass surgery and is currently 5.2%. [facility] Work Phone: 12-24-2022 Evaluation + Plan note Associated Problem(s): Vitamin B12 deficiency 12-lead level was obtained at the beginning of this month and is mildly elevated so overall she is doing well. 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 CBC is checked annually as well as B12 to make sure this remains stable. Annual labs will be checked at this time. [facility] Work Phone: 12-24-2022 Evaluation + Plan note Associated Problem(s): Vitamin D deficiency Patient remains on vitamin D supplementation and will need to do so due to her chronic obesity and gastric bypass surgery. [facility] Work Phone: 12-24-2022 Evaluation + Plan note Associated Problem(s): Osteoporosis Osteoporosis is stable and she is due for bone density this April [facility] Work Phone: 12-24-2022 Evaluation + Plan note Associated Problem(s): GERD (gastroesophageal reflux disease) Gastroesophageal reflux disease is stable with no recent heartburn or breakthrough symptoms. [facility] Work Phone: 12-24-2022 Evaluation + Plan note Associated Problem(s): Hypertension Hypertension is stable. [facility] Work Phone: 12-24-2022 Evaluation + Plan note Associated Problem(s): Other fatigue She has excessive fatigue which cannot be accounted for. CBC was normal and thyroid test was normal so I suggested sleep study to see if she had sleep apnea. Patient agrees she has restless sleep and will agree to a sleep evaluation. Referral was made. [facility] Work Phone: 12-24-2022 Evaluation + Plan note Associated Problem(s): Medicare annual wellness visit, subsequent Annual wellness visit completed today. [facility] Work Phone: 12-24-2022 Evaluation + Plan note Associated Problem(s): Poor sleep Patient is constantly tired however her CBC and thyroid test are all normal and I suggested perhaps she had sleep apnea and recommended sleep study. Patient is in agreement and will go to see a sleep specialist. 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 [facility] Work Phone: 12-24-2022 Evaluation + Plan note Associated Problem(s): Cervical radiculopathy Neck pain is stable at this time and has caused limited range of motion of her upper extremities but she is at her baseline. [facility] Work Phone: 12-24-2022 History of Present illness [...] care planning) Overview Living will power of [place] attorney and CODE STATUS were all discussed with the patient today. She does have a living will and DURABLE POWER OF [facility] [place] and needs to bring us an updated [...] screen was negative. documented in this encounter [facility] Work Phone: 12-24-2022 Instructions Ericka Villela MD - 12/24/2022 10:15 AM EST Advanced directives were discussed at your appointment today. It is recommended that you obtain and complete a living will and D POA (DURABLE POWER OF [facility] [place] for healthcare). You can complete these documents with an united states attorney if you have 1 or go to the website: [email or web address]. Please search the word living well and will take you directly to the form. Once you have completed these documents you can bring a copy to our office so we can add it to your medical record. Set up sleep referral for possible sleep apnea Follow up Dr Campoverde in 6 months documented in this encounter [facility] Work Phone: 10-19-2022 History of Present illness Narrative 62-year-old female here for rib pain. Patient states 2 days ago she was taking down [place] lights when she tripped and fell into [...] is negative for the chief complaint. [facility] 03-[facility]22 History of Present [...] family members with the symptoms. -Internal Medicine [facility] Work Phone: 12-16-2021 History of Present illness Narrative Patient is here today for 4-month follow-up for medical problems such as high cholesterol, hypertension, and recent rectal bleeding.She has followed up with GI, Dr. White and has a colonoscopy and EGD scheduled for 's last A1c was 5.7% in December but she is overdue for repeat potassium level. [facility] Work Phone: 07-24-2021 Hospital Discharge instructions Rivera Tan MD - 07/24/2021 use peptobismol and bananas for diarrheal illness. The following attachments cannot be sent through Care Everywhere.Diarrhea ([place])documented in this encounter [facility] Work Phone: 07-15-2021 History of Present illness [...] were reviewed. There are no significant changes. [facility] Work Phone: 07-15-2021 History of Present illness [...] were reviewed. There are no significant changes. [facility] Work Phone: 04-23-2021 History of Present illness [...] were reviewed. There are no significant changes. [id number] Work Phone: 02-05-2020 History of [...] were reviewed. There are no significant changes. [facility] Work Phone: 02-05-2020 History of Present illness [...] were reviewed. There are no significant changes. [facility] Work Phone: 02-05-2020 History of Present illness [...] were reviewed. There are no significant changes. [id number] Work Phone: Chief complaint Narrative - Reported new patient office visit for evaluation for sleep apnea. [id number] Work Phone: Evaluation note Diagnosis Nausea, vomiting and diarrhea- Primary Nausea with vomiting Dehydration documented in this encounter [facility] Work Phone: Evaluation note* Diagnosis Achilles tendinitis of right lower extremity- Primary Vitamin B12 deficiency Other B-complex deficiencies documented in this encounter [facility] Work Phone: Evaluation note* Diagnosis Subacute sinusitis, unspecified location- Primary Vasculitic neuropathy (CMS/HCC) Unspecified arteritis Secondary non-renal hyperparathyroidism (CMS/HCC) Laryngitis Acute laryngitis, without mention of obstruction documented in this encounter [facility] Work Phone: [phone] note* Diagnosis Other dysphagia- Primary Hoarseness or changing voice Other voice and resonance disorders Vitamin B12 deficiency Other B-complex deficiencies Laryngitis Acute laryngitis, without mention of obstruction Other vitamin B12 deficiency anemia Flu vaccine need Age-related osteoporosis without current pathological fracture documented in this encounter [facility] Work Phone: Evaluation note* Diagnosis Hoarseness or changing voice- Primary Other voice and resonance disorders Vitamin B12 deficiency Other B-complex deficiencies Laryngitis Acute laryngitis, without mention of obstruction documented in this encounter [facility] Work Phone: Evaluation note* Diagnosis Hoarseness or changing voice- Primary Other voice and resonance disorders Glottic insufficiency Other diseases of vocal cords Paresis of left vocal fold Pharyngoesophageal dysphagia Dysphagia, pharyngoesophageal phase documented in this encounter [facility] Work Phone: Evaluation note* Diagnosis Other dysphagia Hoarseness or changing voice Other voice and resonance disorders documented in this encounter [facility] Work Phone: [phone] note* Diagnosis Hoarseness of voice- Primary Dysphonia Hoarseness or changing voice Other voice and resonance disorders Paresis of left vocal fold documented in this encounter [facility] Work Phone: Evaluation note* Diagnosis Pharyngoesophageal dysphagia Dysphagia, pharyngoesophageal phase documented in this encounter [facility] Work Phone: [phone] note* Diagnosis Age-related osteoporosis without current pathological fracture- Primary Gastroesophageal reflux disease without esophagitis Esophageal reflux Primary hypertension Unspecified essential hypertension Vitamin D deficiency Vitamin B12 deficiency Other B-complex deficiencies Type 2 diabetes mellitus without complication, without long-term current use of insulin (CMS/HCC) Other vitamin B12 deficiency anemia Hypercholesterolemia Pure hypercholesterolemia Depression, major, single episode, severe ([facility]/HCC) Cyanocobalamin deficiency Other B-complex deficiencies documented in this encounter [facility] Work Phone: [phone] note* Diagnosis Hoarseness of voice- Primary Dysphonia Surgery, elective Unspecified elective surgery for purposes other than remedying health states Primary hypertension Unspecified essential hypertension Hoarseness of voice Dysphonia documented in this encounter [facility] Work Phone: [phone] note* Diagnosis Routine general medical examination at [...] visit, subsequent Depression, major, single episode, severe ([facility]/HCC) Screening for alcohol problem Screening for alcoholism documented in this encounter [facility] Work Phone: [phone] note* Diagnosis Screening mammogram for breast cancer documented in this encounter [facility] Work Phone: [phone] note* Diagnosis Asymptomatic menopausal state documented in this encounter [facility] Work Phone: [phone] note* Diagnosis Asymptomatic menopausal state documented in this encounter [facility] Work Phone: [phone] note* Diagnosis 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 Other diseases of vocal cords Hoarseness of voice Dysphonia documented in this encounter [facility] Work Phone: Evaluation note* Diagnosis Primary osteoarthritis of both knees- Primary Primary localized osteoarthrosis, lower leg Chondromalacia of right patella Chondromalacia of patella [facility] Left knee pain, unspecified chronicity [facility] Poor sleep- Primary Other fatigue [...] cords or larynx documented in this encounter [facility] Work Phone: Evaluation note* Diagnosis Poor sleep- [...] present Other fatigue Peripheral vascular disease, unspecified ([facility]-HCC) Peripheral vascular disease, unspecified Hypercholesterolemia Pure hypercholesterolemia documented in this encounter [facility] Work Phone: Evaluation note* Diagnosis Poor sleep- [...] present Other fatigue Peripheral vascular disease, unspecified ([facility]) Peripheral vascular disease, unspecified Hypercholesterolemia Pure hypercholesterolemia Contact with and (suspected) exposure to covid-19 COVID-19 documented in this encounter [facility] Work Phone: Evaluation note* Diagnosis Poor sleep- [...] present Other fatigue Peripheral vascular disease, unspecified ([facility]-HCC) Peripheral vascular disease, unspecified Hypercholesterolemia Pure hypercholesterolemia Mononeuritis multiplex- Primary Cervical radiculopathy Brachial neuritis or radiculitis nos documented in this encounter [facility] Work Phone: Evaluation note* Diagnosis Poor sleep- [...] Mononeuritis multiplex- Primary documented in this encounter [facility] Work Phone: Evaluation note* Diagnosis Poor sleep- [...] reflux Mononeuritis multiplex documented in this encounter [facility] Work Phone: Evaluation note* Diagnosis Poor sleep- [...] episode, severe (CMS/HCC) documented in this encounter [facility] Work Phone: Evaluation note* Diagnosis Poor sleep- [...] present Other fatigue Peripheral vascular disease, unspecified ([facility]-HCC) Peripheral vascular disease, unspecified Hypercholesterolemia Pure hypercholesterolemia Neck muscle spasm- Primary Type 2 diabetes mellitus without complication, without long-term current use of insulin (Multi) Cervical radiculopathy Brachial neuritis or radiculitis nos Neck pain Cervicalgia Fall, initial encounter documented in this encounter [facility] Work Phone: Evaluation note* Diagnosis Poor sleep- [...] present Other fatigue Peripheral vascular disease, unspecified ([facility]-HCC) Peripheral vascular disease, unspecified Hypercholesterolemia Pure hypercholesterolemia Neck muscle spasm- Primary Type 2 diabetes mellitus without complication, without long-term current use of insulin (Multi) Cervical radiculopathy Brachial neuritis or radiculitis nos Neck pain Cervicalgia Fall, initial encounter Neck muscle spasm documented in this encounter [facility] Work Phone: Evaluation note* Diagnosis Poor sleep- [...] present Other fatigue Peripheral vascular disease, unspecified ([facility]-HCC) Peripheral vascular disease, unspecified Hypercholesterolemia Pure hypercholesterolemia Neck muscle spasm- Primary Type 2 diabetes mellitus without complication, without long-term current use of insulin (Multi) Cervical radiculopathy Brachial neuritis or radiculitis nos Neck pain Cervicalgia Fall, initial encounter Neck pain- Primary Cervicalgia documented in this encounter [facility] Work Phone: Evaluation note* Diagnosis Poor sleep- [...] present Other fatigue Peripheral vascular disease, unspecified ([facility]-HCC) Peripheral vascular disease, unspecified Hypercholesterolemia Pure hypercholesterolemia Neck muscle spasm- Primary Type 2 diabetes mellitus without complication, without long-term current use of insulin (Multi) Cervical radiculopathy Brachial neuritis or radiculitis nos Neck pain Cervicalgia Fall, initial encounter Neck pain- Primary Cervicalgia Cervicalgia documented in this encounter [facility] Work Phone: Evaluation note* Diagnosis Poor sleep- [...] present Other fatigue Peripheral vascular disease, unspecified ([facility]-HCC) Peripheral vascular disease, unspecified Hypercholesterolemia Pure hypercholesterolemia Neck muscle spasm- Primary Type 2 diabetes mellitus without complication, without long-term current use of insulin (Multi) Cervical radiculopathy Brachial neuritis or radiculitis nos Neck pain Cervicalgia Fall, initial encounter Neck pain Cervicalgia documented in this encounter [facility] Work Phone: Evaluation note* Diagnosis Poor sleep- [...] present Other fatigue Peripheral vascular disease, unspecified ([facility]-HCC) Peripheral vascular disease, unspecified Hypercholesterolemia Pure [...] for breast cancer documented in this encounter [facility] Work Phone: Evaluation note* Diagnosis Primary osteoarthritis of left knee Primary localized osteoarthrosis, lower leg Chronic pain of right knee Vasculitis Arteritis, unspecified Presence of right artificial knee joint Knee joint replacement by other means [facility] Poor sleep- Primary Other fatigue [...] present Other fatigue Peripheral vascular disease, unspecified ([facility]-HCC) Peripheral vascular disease, unspecified Hypercholesterolemia Pure [...] or radiculitis nos documented in this encounter [facility] Work Phone: Evaluation note* Diagnosis Closed fracture of distal end of left radius, unspecified fracture morphology, initial encounter- Primary [facility] Diagnosis Closed Colles' fracture of left radius, initial encounter [facility] Diagnosis Poor sleep- Primary [...] present Other fatigue Peripheral vascular disease, unspecified ([facility]-HCC) Peripheral vascular disease, unspecified Hypercholesterolemia Pure [...] breakdown of skin documented in this encounter [facility] Work Phone: Evaluation note* Diagnosis Closed Colles' fracture of left radius with routine healing, subsequent encounter- Primary Post-operative state Other postprocedural status [facility] Pain and swelling of wrist, left- Primary Closed Colles' fracture of left radius with routine healing, subsequent encounter Post-operative state Other postprocedural status [facility] Diagnosis Closed Colles' fracture of left radius, initial encounter- Primary [facility] Diagnosis Poor sleep- Primary Other fatigue [...] hematuria, site unspecified documented in this encounter [facility] Work Phone: Evaluation note* Diagnosis Pain and swelling of wrist, left- Primary Post-operative state Other postprocedural status Closed Colles' fracture of left radius with routine healing, subsequent encounter [facility] Diagnosis Closed Colles' fracture of left radius, initial encounter documented in this encounter [facility] note* Diagnosis Post-operative state- Primary Other postprocedural status documented in this encounter [facility] note* Diagnosis Poor sleep- Primary Other fatigue [...] or radiculitis nos documented in this encounter [facility] Work Phone: History of Present illness Narrative* [...] was getting her Prolia injections at her [facility] but would like to switch and get [...] was getting her Prolia injections at her [employer] [employer] but would like to switch and get them here which we can make arrangements for * Overall patient notes that she is feeling well [facility] [employer] Work Phone: History of Present illness Narrative* [...] have a living will or power of [place] attorney for healthcare but realizes she should get these doc uments completed. I recommended going to the [facility], library researching online to find these documents and to complete them as soon as possible. 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 [id number] Work Phone: Instructions* Name Dates Details Instructions not documented [id number] Work Phone: Instructions* Name Dates Details Instructions not documented [facility] Work Phone: Reason for referral (narrative)* Consultation (Routine) - Pending Review Specialty Diagnoses / Procedures Referred By Will reno Referred To Contact Otolaryngology Diagnoses Other dysphagia Hoarseness or changing voice Procedures ID OFFICE/OUTPATIENT [facility] 60-74 MINUTES Ericka Villela MD [address] [employer], [address] [address] Referral ID Status Reason Start Date Expiration Date Visits Requested Visits Authorized [id number] Pending Review Specialty Services Required 07/22/2023 01/18/2024 1 1 * Imaging (Routine) - Pending Review Specialty Diagnoses / Procedures Referred By Will reno Referred To Contact Radiology Diagnoses Other dysphagia Hoarseness or changing voice Procedures FL modified barium swallow study Ericka Villela MD [address] [employer], [address] [address] Referral ID Status Reason Start Date Expiration Date Visits Requested Visits Authorized [id number] Pending Review Perform Procedure 07/22/2023 01/18/2024 1 1 [facility] Work Phone: Reason for referral (narrative)* Diagnostic Procedure Only (Routine) - Closed Specialty Diagnoses / Procedures Referred By Contac t Referred To Contact XR IMAGING Diagnoses Left knee pain, unspecified chronicity Procedures XR KNEE GENERAL 4V AP BOTH/PA BOTH/LAT/MERC LEFT RADIOLOGIC EXAM KNEE COMPLETE 4/MORE VIEWS Celso Martell PA-C [address] [place] [address] [place] [address] Referral ID Status Reason Start Date Expiration Date V isits Requested Visits Authorized [id number] Closed Auto-Generate d Referral 04/11/2024 05/11/2025 1 1 [facility] for visit Narrative* Diagnostic Procedure Only (Routine) - Closed Specialty Diagnoses / Procedures Referred By Contac t Referred To Contact XR IMAGING Diagnoses Left knee pain, unspecified chronicity Procedures XR KNEE GENERAL 4V AP BOTH/PA BOTH/LAT/MERC LEFT RADIOLOGIC EXAM KNEE COMPLETE 4/MORE VIEWS Celso Martell PA-C [address] [place] [address] [place] [address] Referral ID Status Reason Start Date Expiration Date V isits Requested Visits Authorized [id number] Closed Auto-Generate d Referral 04/11/2024 05/11/2025 1 1 [facility] for visit Narrative* Clinic-Administered Medication (Routine) - Pending Review Specialty Diagnoses / Procedures Referred By Contac t Referred To Contact Diagnoses Vitamin B12 deficiency Ericka Villela MD [address] [employer], [address] [address] Phone: tel: fax: Referral ID Status Reason Start Date Expiration Date V isits Requested Visits Authorized [id number] Pending Review 08/24/2024 08/24/2025 1 1 [facility] Work Phone: Remact for visit Narrative* Imaging (Routine) - Pending Review Specialty Diagnoses / Procedures Referred By Contac t Referred To Contact Radiology Diagnoses Neck muscle spasm Procedures XR cervical spine complete 4-5 views XR cervical spine 2-3 views Ericka Villela MD [address] [employer], [address] [address] Phone: tel: fax: Referral ID Status Reason Start Date Expiration Date Visits Requested Visits Authorized [id number] Pending Review Perform Procedure 10/25/2024 10/25/2025 1 1 [facility] Work Phone: reason for visit Narrative* Imaging (Routine) - Authorized Specialty Diagnoses / Procedures Referred By Contac t Referred To Contact Radiology Diagnoses Neck pain Procedures XR cervical spine 2-3 views Marilee Wiseman MD [address] [address] Phone: tel: fax: Referral ID Status Reason Start Date Expiration Date Visits Requested Visits Authorized [id number] Authorized Perform Procedure 12/19/2024 12/19/2025 1 1 [facility] Work Phone: Reason for visit Narrative* Imaging (Routine) - Authorized Specialty Diagnoses / Procedures Referred By Contac t Referred To Contact Radiology Diagnoses Encounter for screening mammogram for breast cancer Procedures BI mammo bilateral screening tomosynthesis Ericka Villela MD [address] [employer], [address] [address] Phone: tel: fax: Referral ID Status Reason Start Date Expiration Date Visits Requested Visits Authorized [id number] Authorized Perform Procedure 12/28/2024 12/28/2025 1 1 [facility] Work Phone: reason for visit Narrative* Diagnostic Procedure Only (Routine) - Closed Specialty Diagnoses / Procedures Referred By Contac t Referred To Contact XR IMAGING Diagnoses Closed Colles' fracture of left radius, initial encounter Procedures XR WRIST GENERAL 3V PA/LAT/OBL LEFT RADEX WRIST COMPLETE MINIMUM 3 VIEWS Arnold Raza PA-C [address] [place] [address] Phone: tel: fax: [place] [address] Referral ID Status Reason Start Date Expiration Date V isits Requested Visits Authorized [id number] Closed Auto-Generate d Referral 02/12/2025 03/14/2026 1 1 [facility] for visit Narrative* Diagnostic Procedure Only (Routine) - Closed Specialty Diagnoses / Procedures Referred By Will t Referred To Contact XR IMAGING Diagnoses Closed Colles' fracture of left radius with routine healing, subsequent encounter Procedures XR WRIST GENERAL 3V PA/LAT/OBL LEFT RADEX WRIST COMPLETE MINIMUM 3 VIEWS Tomas Gramajo MD [address] [address] Phone: tel: fax: [place] [address] Referral ID Status Reason Start Date Expiration Date V isits Requested Visits Authorized [id number] Closed Auto-Generate d Referral 02/28/2025 03/30/2026 1 1 [facility] Family History No Family History Records Found [...] FoundDocuments on File Type Date Recorded 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 Living Will 12/30/2023 3:07 PM [...] Documents on File Type Date Recorded Patient Lead Software Developer Expl anateneida Living Will 12/30/2023 3:07 PM [...] deficiency Ericka Villela MD [address] [employer], [facility] [address] [place] [address] Referral ID Status Reason Start Date Expiration Date V isits Requested Visits Authorized [id number] Authorized 02/24/2023 08/23/2023 1 1 Referral ID Status Reason Start Date Expiration Date V isits Requested Visits Authorized [id number] Pending Review 08/19/2023 08/18/2024 1 1 Specialty Diagnoses / Procedures Referred By Contact Referred To Contact Gastroenterology Diagnoses Pharyngoesophageal dysphagia Procedures EGD ID ESOPHAGOGASTRODUODENOSCOPY TRANSORAL DIAGNOSTIC ID EGD TRANSORAL BIOPSY SINGLE/[place] [address] [address] [place] [id number] Referral ID Status Reason Start Date Expiration Date V isits Requested Visits Authorized [id number] Pending Review 08/31/2023 08/30/2024 1 1 Specialty Diagnoses / Procedures Referred By Contac t Referred To Contact Radiology Diagnoses Hoarseness or changing voice Paresis of left vocal fold Procedures CT soft [place] [address] [place] [address] Referral ID Status Reason Start Date Expiration Date Visits Requested Visits Authorized [id number] Pending Review Perform Procedure 08/30/2024 1 1 Specialty Diagnoses / Procedures Referred By Contac t Referred To Contact Radiology Diagnoses Other dysphagia Hoarseness or changing voice Procedures FL modified barium swallow study Ericka Villela MD [address] [employer], [facility] [address] [place] [address] Referral ID Status Reason Start Date Expiration Date Visits Requested Visits Authorized [id number] Pending Review Perform Procedure 07/22/2023 01/18/2024 1 1 Referral ID Status Reason Start Date Expiration Date V isits Requested Visits Authorized [id number] Authorized 08/31/2023 08/30/2024 1 1 Referral ID Status Reason Start Date Expiration Date V isits Requested Visits Authorized [id number] Pending Review 10/28/2023 10/27/2024 1 1 Specialty Diagnoses / Procedures Referred By Contac t Referred To Contact Diagnoses B12 deficiency Ericka Villela MD [address] [employer], [address] [address] Referral ID Status Reason Start Date Expiration Date V isits Requested Visits Authorized [id number] Pending Review 12/30/2023 12/29/2024 1 1 Specialty Diagnoses / Procedures Referred By Contac t Referred To Contact Radiology Diagnoses Asymptomatic menopausal state Procedures XR DEXA bone density Ericka Villela MD [address] [employer], [address] [address] Referral ID Status Reason Start Date Expiration Date Visits Requested Visits Authorized [id number] Pending Review Perform Procedure 12/30/2023 12/29/2024 1 1 Specialty Diagnoses / Procedures Referred By Contac t Referred To Contact Radiology Diagnoses Screening mammogram for breast cancer Procedures BI mammo bilateral screening tomosynthesis Ericka Villela MD [address] [employer], [address] [address] Referral ID Status Reason Start Date Expiration Date Visits Requested Visits Authorized [id number] Authorized Perform Procedure 12/30/2023 12/29/2024 1 1 Specialty Diagnoses / Procedures Referred By Contac t Referred To Contact Radiology Diagnoses Age-related osteoporosis without current pathological fracture Procedures XR DEXA bone density Ericka Villela MD [address] [employer], [address] [address] Referral ID Status Reason Start Date Expiration Date Visits Requested Visits Authorized Authorized Perform Procedure 12/24/2022 06/22/2023 1 1 Specialty Diagnoses / Procedures Referred By Contac t Referred To Contact Sleep Medicine Diagnoses Other fatigue Procedures ID OFFICE/OUTPATIENT NEW HIGH MDM 60-74 MINUTES Ericka Villela MD [address] [employer], [address] [address] Referral ID Status Reason Start Date Expiration Date Visits Requested Visits Authorized [id number] Authorized Specialty Services Required 12/24/2022 06/22/2023 1 1 Additional Source Comments Reason for Visit (unrecogniz ed section and content) Reason For Visit Description New - 1st visit with practice Preliminary reason f or visit data, not yet signed by the author as of right elbow pain Reason Comments Diarrhea Specialty Diagnoses / Procedures Referred By Will t Referred To Contact Diagnoses Vitamin B12 deficiency Ericka Villela MD [address] [employer], [address] [address] Referral ID Status Reason Start Date Expiration Date V isits Requested Visits Authorized [id number] Authorized 02/24/2023 08/23/2023 1 1 Referral ID Status Reason Start Date Expiration Date V isits Requested Visits Authorized [id number] Pending Review 08/19/2023 08/18/2024 1 1 Reason Comments Hoarseness Specialty Diagnoses / Procedures Referred By Will t Referred To Contact Radiology Diagnoses Other dysphagia Hoarseness or changing voice Procedures FL modified barium swallow study Ericka Villela MD [address] [employer], [address] [address] Referral ID Status Reason Start Date Expiration Date Visits Requested Visits Authorized [id number] Pending Review Perform Procedure 07/22/2023 01/18/2024 1 1 Reason Comments minor surgery in office Restylane inject ion. Specialty Diagnoses / Procedures Referred By Contact Referred To Contact Gastroenterology Diagnoses Pharyngoesophageal dysphagia Procedures EGD ID ESOPHAGOGASTRODUODENOSCOPY TRANSORAL DIAGNOSTIC ID EGD TRANSORAL BIOPSY SINGLE/[place] [address] [place] [address] Referral ID Status Reason Start Date Expiration Date V isits Requested Visits Authorized [id number] Authorized 08/31/2023 08/30/2024 1 1 Referral ID Status Reason Start Date Expiration Date V isits Requested Visits Authorized [id number] Pending Review 10/28/2023 10/27/2024 1 1 Specialty Diagnoses / Procedures Referred By Contac t Referred To Contact Diagnoses Hoarseness of voice Hoarseness of voice [R49.0] Procedures ID LARYNGOSCOPY W/WO TRACHEOSCOPY W/MICRO/TELESCOPE ID GRAFTING OF AUTOLOGOUS FAT BY LIPO 25 CC OR LESS Microlaryngoscopy with fat injection, left vocal cord with right [place] [address] [place] [address] [facility] [address] [address] Referral ID Status Reason Start Date Expiration Date Visits Re quested Visits Authorized [id number] 1 1 Specialty Diagnoses / Procedures Referred By Contac t Referred To Contact Diagnoses B12 deficiency Ericka Villela MD [address] [address] Referral ID Status Reason Start Date Expiration Date V isits Requested Visits Authorized [id number] Pending Review 12/30/2023 12/29/2024 1 1 Specialty Diagnoses / Procedures Referred By Contac t Referred To Contact Radiology Diagnoses Screening mammogram for breast cancer Procedures BI mammo bilateral screening tomosynthesis Ericka Villela MD [address] [address] Referral ID Status Reason Start Date Expiration Date Visits Requested Visits Authorized [id number] Authorized Perform Procedure 12/30/2023 12/29/2024 1 1 Specialty Diagnoses / Procedures Referred By Contac t Referred To Contact Radiology Diagnoses Asymptomatic menopausal state Procedures XR DEXA bone density Ericka Villela MD [address] [facility] [address] [place] [address] Referral ID Status Reason Start Date Expiration Date Visits Requested Visits Authorized [id number] Pending Review Perform Procedure 12/30/2023 12/29/2024 1 [...] Earache Ear pain RIGHT x 1 w [place] Reason Comments Post Op Reason Comments OT EVAL Specialty Diagnoses / Procedures Referred By Will reno Referred To Contact OCCUPATIONAL THERAPY Diagnoses Closed Colles' fracture of left radius with routine healing, subsequent encounter Post-operative state Procedures CONSULT TO RECOVERY OPERATOR HELPER OCCUPATIONAL THERAPY EVAL HIGH COMPLEX 60 MINS Yehuda Kirk PA-C [address] [place] [address] Phone: tel: fax: [facility] [address] [place] [address] Phone: tel: fax: Referral ID Status Reason Start Date Expiration Date Visits Requested Visits Authorized [id number] Authorized Auto-Generat ed Referral 03/01/2025 10/17/2025 99 99 Reason Comments Established Patient Pain Fracture Reason Comments Urinary Problem Reason Comments OT Progress Note Specialty Diagnoses / Procedures Referred By Will reno Referred To Contact [facility] Diagnoses Post-operative state Procedures CONSULT TO RECOVERY OPERATOR HELPER OCCUPATIONAL THERAPY EVAL HIGH COMPLEX 60 MINS Yehuda Kirk PA-C [address] [place] [address] Phone: tel: fax: Cynthia Falcon, OT/L, OTD [address] [place] [address] Phone: tel: Referral ID Status Reason Start Date Expiration Date Visits Requested Visits Authorized [id number] Authorized Auto-Generat ed Referral 02/19/2025 10/17/2025 99 [...] 1143 (New Bag - Prov ider: Tawanna Mckeno RN)[phone] (Stopped - Provider: Celso Castellon RN) [...] section and content) DATE CREATED AUTHOR 08/09/2021 [facility] DATE CREATED AUTHOR AUTHOR'S ORGANIZ ATION 01/21/2022 [facility] DATE CREATED AUTHOR AUTHOR'S ORGANIZ ATION 06/30/2023 [facility] DATE CREATED AUTHOR AUTHOR'S ORGANIZ ATION 07/01/2023 [facility] DATE CREATED AUTHOR AUTHOR'S ORGANIZ ATION 08/07/2023 [facility] DATE CREATED AUTHOR AUTHOR'S ORGANIZ ATION 03/14/2025 [facility] DATE CREATED AUTHOR AUTHOR'S ORGANIZ ATION 03/15/2025 [facility] DATE CREATED AUTHOR AUTHOR'S ORGANIZ ATION 03/16/2025 [facility] DATE CREATED AUTHOR AUTHOR'S ORGANIZ ATION 03/23/2025 [facility] DATE CREATED AUTHOR AUTHOR'S ORGANIZ ATION 03/29/2025 [facility] DATE CREATED AUTHOR AUTHOR'S ORGANIZ ATION 04/02/2025 [facility] DATE CREATED AUTHOR AUTHOR'S ORGANIZ ATION 04/11/2025 [facility] Care Teams (unrecognized sec tion and content) Rib Builder Relationship Specialty Start Date End Date Ericka Villela MD [address] [place] [address] PCP - General 02/15/06 Ericka Villela MD [address], [address] [place] [address] PCP - [employer]na Medicare Advantage PCP 10/18/21 Rib Builder Relationship Specialty Start Date End Date Ericka Villela MD [address] [employer], [address] [place] [address] PCP - General 02/15/06 Ericka Villela MD [address] [employer] [employer], [address] [place] [address] PCP - Aetna Medicare Advantage PCP 10/18/21 Rib Builder Relationship Specialty Start Date End Date Ericka Villela MD [address] [employer] [employer], [address] [place] [address] PCP - General 02/15/06 Ericka Villela MD [address] [employer] [employer], [address] [place] [address] PCP - Aetna Medicare Advantage PCP 10/18/21 Rib Builder Relationship Specialty Start Date End Date Ericka Villela MD [address] [employer] [employer], [address] [place] [address] PCP - General 02/15/06 Ericka Villela MD [address], [address] [place] [address] PCP - A[employer]na Medicare Advantage PCP 10/18/21 Rib Builder Relationship Specialty Start Date End Date Ericka Villela MD [address], [address] [place] [address] PCP - General 02/15/06 Ericka Villela MD [address], [address] [place] [address] PCP - Aetna Medicare Advantage PCP 10/18/21 Rib Builder Relationship Specialty Start Date End Date Ericka Villela MD [address] [employer], [address] [place] [address] PCP - General 02/15/06 Ericka Villela MD [address] [employer], [address] [place] [address] PCP - Aetna Medicare Advantage PCP 10/18/21 Rib Builder Relationship Specialty Start Date End Date Ericka Villela MD [address] [employer] [employer], [address] [place] [address] PCP - General 02/15/06 Ericka Villela MD [address] [employer], [address] [place] [address] PCP - Aetna Medicare Advantage PCP 10/18/21 Rib Builder Relationship Specialty Start Date End Date Ericka Villela MD [address] [employer] [employer], [address] [place] [address] PCP - General 02/15/06 Ericka Villela MD [address] [employer], [address] [place] [address] PCP - Aetna Medicare Advantage PCP 10/18/21 Rib Builder Relationship Specialty Start Date End Date Ericka Villela MD [address], [address] [place] [address] PCP - General 02/15/06 Ericka Villela MD [address], [address] [place] [address] [place] [address] PCP - Aetna Medicare Advantage PCP 10/18/21 Rib Builder Relationship Specialty Start Date End Date Ericka Villela MD [address], [address] [place] [address] PCP - General 02/15/06 Ericka Villela MD [address] [employer] [employer], [address] [place] [address] [place] [address] PCP - Aetna Medicare Advantage PCP 10/18/21 Rib Builder Relationship Specialty Start Date End Date Ericka Villela MD [address], [address] [place] [address] PCP - General 02/15/06 Ericka Villela MD [address], [address] [place] [address] PCP - Aetna Medicare Advantage PCP 10/18/21 Rib Builder Relationship Specialty Start Date End Date Ericka Villela MD [address], [address] [place] [address] PCP - General 02/15/06 Ericka Villela MD [address], [address] [place] [address] PCP - Aetna Medicare Advantage PCP 10/18/21 Rib Builder Relationship Specialty Start Date End Date Ericka Villela MD [address], [address] [place] [address] PCP - General 02/15/06 Ericka Villela MD [address], [address] [place] [address] PCP - Aetna Medicare Advantage PCP 10/18/21 Rib Builder Relationship Specialty Start Date End Date Ericka Villela MD PCP - General Internal Medicine 11/09/13 Rib Builder Relationship Specialty Start Date End Date Ericka Villela MD PCP - General Internal Medicine 11/09/13 Rib Builder Relationship Specialty Start Date End Date Ericka Villela MD PCP - General Internal Medicine 11/09/13 Rib Builder Relationship Specialty Start Date End Date Ericka Vilella MD [address], [address] [place] [address] PCP - General 02/15/06 Ericka Villela MD [address], [address] [place] [address] PCP - Aetna Medicare Advantage PCP 10/18/21 Rib Builder Relationship Specialty Start Date End Date Ericka Villela MD [address], [address] [place] [address] PCP - General 02/15/06 Ericka Villela MD [address], [address] [place] [address] PCP - Aetna Medicare Advantage PCP 10/18/21 Rib Builder Relationship Specialty Start Date End Date Ericka Villela MD [address], [address] [place] [address] PCP - General 02/15/06 Ericka Villela MD [address], [address] [place] [address] PCP - Aetna Medicare Advantage PCP 10/18/21 Rib Builder Relationship Specialty Start Date End Date Ericka Villela MD [address], [address] [place] [address] PCP - General 02/15/06 Ericka Villela MD [address], [address] [place] [address] PCP - Aetna Medicare Advantage PCP 10/18/21 Rib Builder Relationship Specialty Start Date End Date Ericka Villela MD [address], [address] [place] [address] PCP - General 02/15/06 Ericka Villela MD [address], [address] [place] [address] PCP - Aetna Medicare Advantage PCP 10/18/21 Rib Builder Relationship Specialty Start Date End Date Ericka Villela MD [address], [facility] [address] [place] [address] PCP - General 02/15/06 Ericka Villela MD [address], [facility] [address] [place] [address] PCP - Aetna Medicare Advantage PCP 10/18/21 Rib Builder Relationship Specialty Start Date End Date Ericka Villela MD [address], [address] [address] PCP - General 02/15/06 Ericka Villela MD [address], [address] [place] [address] PCP - Aetna Medicare Advantage PCP 10/18/21 Rib Builder Relationship Specialty Start Date End Date Ericka Villela MD [address], [address] [place] [address] PCP - General 02/15/06 Ericka Villela MD [address], [address] [place] [address] PCP - Aetna Medicare Advantage PCP 10/18/21 Rib Builder Relationship Specialty Start Date End Date Ericka Villela MD [address], [address] [place] [address] PCP - General 02/15/06 Ericka Villela MD [address], [address] [place] [address] PCP - Aetna Medicare Advantage PCP 10/18/21 Rib Builder Relationship Specialty Start Date End Date Ericka Villela MD [address], [facility] [address] [place] [address] PCP - General 02/15/06 Ericka Villela MD [address], [facility] [address] [place] [address] PCP - Aetna Medicare Advantage PCP 10/18/21 Sy Alvarado MD [address] [facility] [address] [place] [address] Referring Physician Gastroenterology 12/11/24 Marilee Wiseman MD [address] [place] [address] Surgeon Physical Medicine and Rehabilitation 12/11/24 [place] [address] [address] Department [place] [address] Consulting Physician Neurology 12/11/24 Bushra Li, OD [address]83 [facility] [place] [address] Referring Physician Optometry 12/11/24 [place] [address] [facility] [address] [place] [address] Referring Physician Endocrinology 12/11/24 [place] [address] [place] [address] Surgeon Otolaryngology 12/11/24 Rib Builder Relationship Specialty Start Date End Date Ericka Villela MD [address], [address] [place] [address] PCP - General 02/15/06 Ericka Villela MD [address], [address] [place] [address] PCP - Aet Medicare Advantage PCP 10/18/21 Sy Alvarado MD [address] [place] [address] Referring Physician Gastroenterology 12/11/24 Marilee Wiseman MD [address] [place] [address] Surgeon Physical Medicine and Rehabilitation 12/11/24 [place] [address] [address] Department [place] [address] Consulting Physician Neurology 12/11/24 Bushra Li, OD 3583 [facility] [place] [address] Referring Physician Optometry 12/11/24 [place] [address] [facility] [address] [place] [address] Referring Physician Endocrinology 12/11/24 [place] [address] [address] [place] [address] Surgeon Otolaryngology 12/11/24 Rib Builder Relationship Specialty Start Date End Date Ericka Villela MD [address], [facility] [address] [place] [address] PCP - General 02/15/06 Ericka Villela MD [address], [address] [place] [address] PCP - Aet Medicare Advantage PCP 10/18/21 Sy Alvarado MD [address] [facility] [address] [place] [address] Referring Physician Gastroenterology 12/11/24 Marilee Wiseman MD [address] [place] [address] Surgeon Physical Medicine and Rehabilitation 12/11/24 [place] [address] [address] Department [place] [address] Consulting Physician Neurology 12/11/24 Bushra Li, OD 3583 [facility] [place] [address] Referring Physician Optometry 12/11/24 [place] [address] [facility] [address] [place] [address] Referring Physician Endocrinology 12/11/24 [place] [address] [place] [address] Surgeon Otolaryngology 12/11/24 Rib Builder Relationship Specialty Start Date End Date Ericka Villela MD PCP - General Internal Medicine 11/09/13 Rib Builder Relationship Specialty Start Date End Date Ericka Villela MD PCP - General Internal Medicine 11/09/13 Rib Builder Relationship Specialty Start Date End Date Ericka Villela MD [address], [address] [place] [address] PCP - General 02/15/06 Ericka Villela MD [address], [address] [place] [address] PCP - Aetna Medicare Advantage PCP 10/18/21 Sy Alvarado MD [address] [facility] [address] [place] [address] Referring Physician Gastroenterology 12/11/24 Marilee Wiseman MD [address] [facility] [address] [place] [address] Surgeon Physical Medicine and Rehabilitation 12/11/24 [place] [address] [address] Department [place] [address] Consulting Physician Neurology 12/11/24 Bushra Li, OD 3583 [facility] [place] [address] Referring Physician Optometry 12/11/24 [place] [address] [facility] [address] [place] [address] Referring Physician Endocrinology 12/11/24 [place] [address] [place] [address] Surgeon Otolaryngology 12/11/24 Rib Builder Relationship Specialty Start Date End Date Ericka Villela MD PCP - General Internal Medicine 11/09/13 Rib Builder Relationship Specialty Start Date End Date Ericka Villela MD PCP - General Internal Medicine 11/09/13 Rib Builder Relationship Specialty Start Date End Date Ericka Villela MD [address], [facility] [address] [place] [address] PCP - General 02/15/06 Ericka Villela MD [address], [address] [place] [address] PCP - Aetna Medicare Advantage PCP 10/18/21 Sy Alvarado MD [address] [facility] [address] [place] [address] Referring Physician Gastroenterology 12/11/24 Marilee Wiseman MD [address] [place] [address] Surgeon Physical Medicine and Rehabilitation 12/11/24 [place] [address] [facility] Department [place] [address] Consulting Physician Neurology 12/11/24 Bushra Li, OD 3583 [facility] [place] [address] Referring Physician Optometry 12/11/24 [place] [address] [facility] [address] [place] [address] Referring Physician Endocrinology 12/11/24 [place] [address] [place] [address] Surgeon Otolaryngology 12/11/24 Rib Builder Relationship Specialty Start Date End Date Ericka Villela MD PCP - General Internal Medicine 11/09/13 Rib Builder Relationship Specialty Start Date End Date Ericka Villela MD PCP - General Internal Medicine 11/09/13 Rib Builder Relationship Specialty Start Date End Date Ericka Villela MD [address] [place] [address] PCP - General 02/15/06 Ericka Villela MD [address], [address] [place] [address] PCP - Aetna Medicare Advantage PCP 10/18/21 Sy Alvarado MD [address] [place] [address] Referring Physician Gastroenterology 12/11/24 Marilee Wiseman MD [address] [place] [address] Surgeon Physical Medicine and Rehabilitation 12/11/24 [place] [address] [facility] Department [place] [address] Consulting Physician Neurology 12/11/24 Bushra Li, OD [address]83 [facility] [place] [address] Referring Physician Optometry 12/11/24 [place] [address] [facility] [address] [place] [address] Referring Physician Endocrinology 12/11/24 [place] [address] [place] [address] Surgeon Otolaryngology 12/11/24 Rib Builder Relationship Specialty Start Date End Date Ericka Villela MD PCP - General Internal Medicine 11/09/13 Rib Builder Relationship Specialty Start Date End Date Ericka Villela MD PCP - General Internal Medicine 11/09/13 Rib Builder Relationship Specialty Start Date End Date Ericka Villela MD PCP - General Internal Medicine 11/09/13 Rib Builder Relationship Specialty Start Date End Date Ericka Villela MD PCP - General Internal Medicine 11/09/13 Rib Builder Relationship Specialty Start Date End Date Ericka Villela MD [address], [facility] [address] [place] [address] PCP - General 02/15/06 Ericka Villela MD [address], [facility] [address] [place] [address] PCP - Aet Medicare Advantage PCP 10/18/21 Sy Alvarado MD [address] [facility] [address] [place] [address] Referring Physician Gastroenterology 12/11/24 Marilee Wiseman MD [address] [facility] [address] [place] [address] Surgeon Physical Medicine and Rehabilitation 12/11/24 [place] [address] [address] Department [place] [address] Consulting Physician Neurology 12/11/24 Bushra Li, OD 3583 [facility] [place] [address] Referring Physician Optometry 12/11/24 [place] [address] [facility] [address] [place] [address] Referring Physician Endocrinology 12/11/24 [place] [address] [place] [address] Surgeon Otolaryngology 12/11/24 Source Comments (unrecognize d section and content) In the event this informatio n is protected by the Federal Confidentiality of Alcohol and Drug Abuse Patient Records regulations: The Federal rules restrict any use of the information to criminally investigate or prosecute any alcohol or drug abuse patient.[facility] the event this information is protected by the Federal Confidentiality of Alcohol and Drug Abuse Patient Records regulations: The Federal rules restrict any use of the information to criminally investigate or prosecute any alcohol or drug abuse patient.[facility] Hospital[facility] the event this information is protected by the Federal Confidentiality of Alcohol and Drug Abuse Patient Records regulations: The Federal rules restrict any use of the information to criminally investigate or prosecute any alcohol or drug abuse patient.[facility] Hospital[facility] the event this information is protected by the Federal Confidentiality of Alcohol and Drug Abuse Patient Records regulations: The Federal rules restrict any use of the information to criminally investigate or prosecute any alcohol or drug abuse patient.[facility] Hospital[facility] the event this information is protected by the Federal Confidentiality of Alcohol and Drug Abuse Patient Records regulations: The Federal rules restrict any use of the information to criminally investigate or prosecute any alcohol or drug abuse patient.[facility] Hospital[facility] the event this information is protected by the Federal Confidentiality of Alcohol and Drug Abuse Patient Records regulations: The Federal rules restrict any use of the information to criminally investigate or prosecute any alcohol or drug abuse patient.[facility] HospitalIn the event this information is protected by the Federal Confidentiality of Alcohol and Drug Abuse Patient Records regulations: The Federal rules restrict any use of the information to criminally investigate or prosecute any alcohol or drug abuse patient.[facility] Hospital[facility] the event this information is protected by the Federal Confidentiality of Alcohol and Drug Abuse Patient Records regulations: The Federal rules restrict any use of the information to criminally investigate or prosecute any alcohol or drug abuse patient.[facility] Hospital[facility] the event this information is protected by the Federal Confidentiality of Alcohol and Drug Abuse Patient Records regulations: The Federal rules restrict any use of the information to criminally investigate or prosecute any alcohol or drug abuse patient.[facility] HospitalIn the event this information is protected by the Federal Confidentiality of Alcohol and Drug Abuse Patient Records regulations: The Federal rules restrict any use of the information to criminally investigate or prosecute any alcohol or drug abuse patient.[facility] Hospital[facility] the event this information is protected by the Federal Confidentiality of Alcohol and Drug Abuse Patient Records regulations: The Federal rules restrict any use of the information to criminally investigate or prosecute any alcohol or drug abuse patient.[facility] Hospital[facility] the event this information is protected by the Federal Confidentiality of Alcohol and Drug Abuse Patient Records regulations: The Federal rules restrict any use of the information to criminally investigate or prosecute any alcohol or drug abuse patient.[facility] HospitalIn the event this information is protected by the Federal Confidentiality of Alcohol and Drug Abuse Patient Records regulations: The Federal rules restrict any use of the information to criminally investigate or prosecute any alcohol or drug abuse patient.[facility] HospitalIn the event this information is protected by the Federal Confidentiality of Alcohol and Drug Abuse Patient Records regulations: The Federal rules restrict any use of the information to criminally investigate or prosecute any alcohol or drug abuse patient.[facility] HospitalIn the event this information is protected by the Federal Confidentiality of Alcohol and Drug Abuse Patient Records regulations: The Federal rules restrict any use of the information to criminally investigate or prosecute any alcohol or drug abuse patient.[facility] FOR RECORDS PERTAINING TO PATIENTS WHO ARE [...] BE BASED ON THE PRIMARY CLINICAL RECORDS. [facility]. provides no warranty or guarantee of the accuracy or completeness of information in this document.
== END | disposition home or self-care (01) ==
PROVIDERS: Referring Provider Nurse Practitioner; Visit Provider Nurse Practitioner
DX: N30.90 Cystitis, unspecified without hematuria (principal); R35.0 Frequency of micturition
CPT/HCPCS: 87086; 87088